=== PATIENT | male | born 1970 | race Caucasian/White ===

== ENCOUNTER → 2017-10-03 14:24 | Outpatient (CLI) | payer SELFPAY ==
[2017-10-03 16:51] LABS: Anion Gap 8 (5-15); BUN 18 mg/dL (7-18); BUN/Creat Ratio 17.5 RATIO (10-20); Calcium,Total 9.1 mg/dL (8.5-10.1); Chloride 109 mmol/L (98-107); Cholesterol 188 mg/dL (200); Creatinine, Serum 1.03 mg/dL (0.70-1.30); EST Glomerular Filtration Rate 82 mL/min (>60); Est Glom Filt Rate - Afr Amer 99 mL/min (>60); Glucose 89 mg/dL (70-110); High Density Lipoprotein 47 mg/dL; Potassium 4.6 mmol/L (3.5-5.1); Sodium Level 140 mmol/L (136-145); Thyroid Stim Hormone (TSH) 1.42 uIU/mL (0.358-3.74); Triglycerides 139 mg/dL; Very Low Density Lipoprotein 28 mg/dL (5-40)
== END ==
PROVIDERS: Family Provider Family Medicine; PCP Family Medicine; Visit Provider Family Medicine
DX: Z00.00 Encounter for general adult medical examination without abnormal findings (principal)
CPT/HCPCS: 36415; 80048; 80061; 84403; 84443

== ENCOUNTER 2017-10-20 10:14 | Outpatient (RCR) | payer BC, SELFPAY | END 2017-11-02 23:59 | LOC: NS 10:14 | PROVIDERS: Family Provider Family Medicine; PCP Family Medicine; Visit Provider Family Medicine | DX: E66.9 Obesity, unspecified (principal); Z68.41 Body mass index [BMI] 40.0-44.9, adult; Z71.3 Dietary counseling and surveillance | CPT/HCPCS: 97802 ==

== ENCOUNTER 2017-11-25 10:00 | Outpatient (RCR) | payer BC, SELFPAY | END 2017-11-25 10:01 | LOC: NS 10:00 | PROVIDERS: Family Provider Family Medicine; PCP Family Medicine; Visit Provider Family Medicine | DX: E66.9 Obesity, unspecified (principal); Z68.41 Body mass index [BMI] 40.0-44.9, adult; Z71.3 Dietary counseling and surveillance | CPT/HCPCS: 97803 ==

== ENCOUNTER → 2018-04-03 08:50 | Outpatient (CLI) | payer BC, SELFPAY ==
[2018-04-03 10:36] LABS: Anion Gap 9 (5-15); BUN 19 mg/dL (7-18); BUN/Creat Ratio 17.6 RATIO (10-20); Calcium,Total 8.7 mg/dL (8.5-10.1); Chloride 109 mmol/L (98-107); Cholesterol 200 mg/dL (200); Creatinine, Serum 1.08 mg/dL (0.70-1.30); EST Glomerular Filtration Rate 77 mL/min (>60); Est Glom Filt Rate - Afr Amer 93 mL/min (>60); Glucose 102 mg/dL (74-106); High Density Lipoprotein 44 mg/dL; Potassium 4.3 mmol/L (3.5-5.1); Sodium Level 143 mmol/L (136-145); Thyroid Stim Hormone (TSH) 3.72 uIU/mL (0.358-3.74); Triglycerides 109 mg/dL; Very Low Density Lipoprotein 22 mg/dL (5-40)
== END ==
PROVIDERS: Family Provider Family Medicine; PCP Family Medicine; Visit Provider Family Medicine
DX: I10 Essential (primary) hypertension (principal); E66.9 Obesity, unspecified
CPT/HCPCS: 36415; 80048; 80061; 84443

== ENCOUNTER → 2018-05-18 18:05 | Outpatient (CLI) | payer OTHER, BC, SELFPAY ==
--- NOTE | 2018-05-18 18:10 | RAD_ITS ---
STUDY: X-RAY - LUMBAR SPINE REASON FOR EXAM: Male, 48 years old. Low back pain after injury. TECHNIQUE: 5 view(s) of the lumbar spine were obtained. COMPARISON: Radiographs of the lumbar spine dated September 18, 2016. FINDINGS: There is an exaggerated lumbar lordosis. There is no substantial scoliosis. There is a normal alignment of the vertebrae. There is spondylosis at T12-L1. The remaining lumbar vertebral bodies have normal height and alignment. Normal disc space heights. There is no demonstrated fracture. The soft tissue structures are unremarkable. RAD/L/S Spine Min 4 Views IMPRESSION: No radiographic evidence of acute compression or displaced fracture of the lumbar spine. Electronically Signed: Buffy Chapin MD at 10:29 EDT , Service support ,
== END ==
PROVIDERS: Family Provider Family Medicine; PCP Family Medicine; Visit Provider Physician Assistant
DX: M54.5 Low back pain (principal)
CPT/HCPCS: 72110

== ENCOUNTER → 2018-07-20 10:38 | Outpatient (CLI) | payer BC, SELFPAY ==
[2018-05-26 10:08] VITALS: BMI 43.4
--- NOTE | 2018-07-20 10:43 | RAD_ITS ---
STUDY: X-RAY - RIGHT ELBOW REASON FOR EXAM: Male, 48 years old. Pain in the right elbow while lifting weights TECHNIQUE: 4 view(s) of the elbow. COMPARISON: None. FINDINGS: Normal visualized humerus, radius and ulna. There is degenerative arthrosis of the radiocapitellar and ulnotrochlear articulations. Multiple intra-articular loose bodies are seen at the elbow joint the largest measures approximately 7 mm. RAD/Elbow min 3 Views IMPRESSION: Arthrosis of the elbow, as described above. Multiple intra-articular loose bodies. Electronically Signed: Vandana Monge MD at 10:12 EST Tel , Service support ,
== END ==
PROVIDERS: Family Provider Family Medicine; PCP Family Medicine; Referring Provider Family Medicine; Visit Provider Family Medicine
DX: M19.021 Primary osteoarthritis, right elbow (principal); M24.021 Loose body in right elbow
CPT/HCPCS: 73080

== ENCOUNTER 2018-08-28 09:30 | Outpatient (RCR) | payer BC, SELFPAY ==
--- NOTE | 2018-08-08 10:32 | HP.PTEVAL_ITS ---
Patient's Visit Information ARGELIA COPELAND is a 48 year old M referred to Physical Therapy by Eddie Rodriguez with a diagnosis of Radial neuritis. Date of Evaluation: 08/08/18 Physical Therapist: Sonu Russell, PT, - Visit Plan Frequency: 1x/Week Duration: 2 Weeks Plan: Pt will continue to exercise here in the gym independently. I will follow up with him in 3 weeks to assess his progress. 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 Pt reports he was issued meloxicam which has taken away most of his symptoms. Pt reports he still has pain in the posterior aspect of his R elbow. Pt reports he did have xrays which revealed bone chips in his elbow. Pt reports he was told that he injured his radial nerve while exercising. Pt reports sleep difficulty secondary to pain without pain meds. Pt reports he is L hand dominant. Pt reports his goal is to return to lifting without pain. 0/10 pain at rest, 9/10 pain at worst. - Pain R UE pain Pain Intensity (Out of 10): 0 Pain Intensity Range: 9 - Objective Neuro: B UE sensation is WNL to light touch. B bicepital reflex= 2/3. MMT: B UE's are grossly 5/5 although R elbow extension is very painful with testing. ROM: B UE's are WFL throughout although R elbow extension is painful. Special testing: No positive tests this date. - Goals Goal 1:: I with HEP Goal Time Frame: 2-4 Weeks - Rehabilitation Potential Physical Therapy Diagnosis: Pt has R UE pain and difficulty with exercises seco ndary to R radial neuritis Rehabilitation Potential: Good - Anticipated Interventions Patient/Client Instruction: Educate patient on: Condition, Plan of Care For the Purpose of:: To improve self management Therapeutic Exercise to Include: Strength training, Flexibilty training, Active ROM For the Purpose of:: To decrease pain Ultrasound (thermal/non thermal): Yes For the Purpose of:: To decrease pain Thank you for the opportunity to evaluate your patient. For Medicare and Medicare HMO plans, please review the plan of care and approve it. It will need to be FAXED BACK to us at [phone] for Medicare purposes. For Medicare only, by signing this I certify the plan of care. Please let me know if there are questions or concerns regarding this plan of ca re. Physician Signature: Date:
--- NOTE | 2018-11-20 14:53 | HP.PT.NRP ---
HP - Discharge Summary (1) - Patient Information ARGELIA COPELAND was seen in my office for initial evaluation on 08/08/18. The following Plan of Care was established for this patient: Initial Frequency: 1x/Week Initial Duration: 2 Weeks - Anticipated Interventions Patient/Client Instruction: Educate patient on: Condition, Plan of Care For the Purpose of:: To improve self management Therapeutic Exercise to Include: Strength training, Flexibilty training, Active ROM For the Purpose of:: To decrease pain Ultrasound (thermal/non thermal): Yes For the Purpose of:: To decrease pain This patient was last seen in our office . Pertinent comments regarding their Physical therapy will appear below: Pt was treated for elbow pain for 2 PT visits through the date of 08/28/18. Pt has not returned through this date and is therefore discontinued at this time. At this point I will be discontinuing this patient from physical therapy. I would be happy to see this patient again in the future if found appropriate by the physician. Thank you! Sonu Russell, PT, ATC
== END 2018-08-28 19:00 | disposition home or self-care (01) ==
LOC: PT 09:30
PROVIDERS: Family Provider Family Medicine; PCP Family Medicine; Referring Provider Family Medicine; Visit Provider Family Medicine
DX: M25.521 Pain in right elbow (principal); G58.8 Other specified mononeuropathies
CPT/HCPCS: 97140; 97161

== ENCOUNTER → 2018-09-15 12:28 | Outpatient (CLI) | payer BC, SELFPAY ==
--- NOTE | 2018-09-15 13:00 | MRI_ITS ---
STUDY: MRI RIGHT ELBOW REASON FOR EXAM: Male, 48 years old. Pain. Patient unable to straighten arm TECHNIQUE: Standardized fat and water weighted pulse sequences were obtained in all 3 orthogonal planes. COMPARISON: X-ray July 20, 2018. FINDINGS: There is a small volume joint effusion of the radio-capitellum articulation. There is mild arthrosis of the radio-capitellum articulation. Normal radial collateral ligamentous complex. There is a tendinosis of the common extensor tendon origin with a partial deep surface tear. Series 6 image 19/32. There is a small volume joint effusion of the ulnotrochlear articulation. There is mild arthrosis of the ulnotrochlear articulation. Normal ulnar collateral ligamentous complex. Normal common flexor tendon. There are numerous small diminished signal loose bodies in the anterior and posterior joint, Series 6 images 16/32 and 24/32. The cubital tunnel is normal, with a normal ulnar nerve. Normal biceps tendon and distal insertion. Normal lacertus fibrosis. Normal brachialis musculotendinous insertion. Normal triceps tendon and teno-osseous insertion. Normal olecranon process. The visualized distal humerus, proximal radius, and ulna are normal. The visualized muscles of the distal arm and proximal forearm are normal. The soft tissue structures are unremarkable. MRI/Upper Ext Joint Only(Routine) IMPRESSION: Degenerative change. Joint effusion with loose bodies. Tendinosis with partial tear of the common extensor tendon. Electronically Signed: Ivan Verde MD at 10:34 EST , Service support ,
== END ==
LOC: MRI 12:29
PROVIDERS: Family Provider Family Medicine; PCP Family Medicine; Referring Provider Family Medicine; Visit Provider Family Medicine
DX: M19.021 Primary osteoarthritis, right elbow (principal); M24.021 Loose body in right elbow; M67.823 Other specified disorders of tendon, right elbow; S56.511A Strain of other extensor muscle, fascia and tendon at forearm level, right arm, initial encounter; X58.XXXA Exposure to other specified factors, initial encounter
CPT/HCPCS: 73221

== ENCOUNTER → 2018-10-23 14:52 | Outpatient (CLI) | payer BC, SELFPAY ==
--- NOTE | 2018-10-23 14:57 | VDLE_ITS ---
Reason For Study: RLE Pain RIGHT GSV is normal. CFV is compressible, spontaneous, phasic, competent and demonstrates normal augmentation. FV is compressible, spontaneous, phasic, competent and demonstrates normal augmentation. POP V is compressible, spontaneous, phasic, competent and demonstrates normal augmentation. T/P Trunk is compressible. PTV is compressible. RT PerV is compressible. Procedure Exam performed in department. A preliminary report was called and/or faxed to Johan Slater. Interpretation Summary Deep veins of the right lower extremity are patent and compressible segmentally. There is no evidence of right lower extremity deep vein thrombosis. Valvular competence appears intact within the proximal deep venous system on the right . The right greater saphenous vein appears patent and compressible segmentally. Ordering Physician: BECKY Kasper Referring Physician: BECKY Kasper Performed By: Natalie Yoder, DONITA, RVT
== END ==
LOC: CVS 14:54
PROVIDERS: Family Provider Family Medicine; PCP Family Medicine; Referring Provider Nurse Practitioner Family; Visit Provider Nurse Practitioner Family
DX: M79.604 Pain in right leg (principal)
CPT/HCPCS: 93971

== ENCOUNTER → 2018-10-27 11:08 | Outpatient (CLI) | payer BC, SELFPAY ==
[2018-05-26 10:08] VITALS: BMI 43.4
--- NOTE | 2018-10-27 11:11 | RAD_ITS ---
STUDY: X-RAY - LUMBAR SPINE REASON FOR EXAM: Male, 48 years old. Right leg pain and burning. TECHNIQUE: 5 view(s) of the lumbar spine were obtained. COMPARISON: None FINDINGS: Normal lumbar lordosis. There is no substantial scoliosis. There is a normal alignment of the vertebrae. Normal vertebral bodies and endplates. Narrowing of L4-L5 disc space. There is no demonstrated fracture. There is no demonstrated spondylolysis of the pars interarticulares. The soft tissue structures are unremarkable. RAD/L/S Spine Min 4 Views IMPRESSION: Narrowing of L4-5 disc space. Electronically Signed: Santos Rubin MD at 11:00 EST Tel , Service support ,
== END ==
LOC: MTRAD 11:09
PROVIDERS: Family Provider Family Medicine; PCP Family Medicine; Referring Provider Family Medicine; Visit Provider Family Medicine
DX: M54.10 Radiculopathy, site unspecified (principal)
CPT/HCPCS: 72110

== ENCOUNTER 2018-11-09 12:53 | Emergency (ER) | payer BC, SELFPAY ==
[2018-11-09 12:53] VITALS: BP 203/112; PULSE 73; RESP 18; TEMP 36.6; O2SAT 97; BMI 45.3
[2018-11-09 13:27] VITALS: BP 148/92; PULSE 71; RESP 12; O2SAT 98
--- NOTE | 2018-11-09 13:27 | RAD_ITS ---
STUDY: X-RAY CHEST REASON FOR EXAM: Male, 48 years old. Chest pain. TECHNIQUE: Single AP portable view of the chest. COMPARISON: Comparison is made with prior study dated February 19, 2014. FINDINGS: EKG electrodes are seen. The lungs are clear and expanded. There is no demonstrated pleural abnormality. Normal size heart. Normal mediastinum and cole. Normal visualized pulmonary arteries. Normal visualized aortic arch and descending thoracic aorta. There are diffuse degenerative changes of the visualized thoracic spine. Normal visualized ribs, clavicles, and shoulders. There is no demonstrated abnormality of the visualized soft tissue structures of the upper abdomen. RAD/Chest 1 View (Portable) IMPRESSION: No acute abnormality is seen. Electronically Signed: Jose M Gloria, at 14:27 EST , Service support ,
--- NOTE | 2018-11-09 13:27 | EKG12_ITS ---
Test Reason : HTN Blood Pressure : / mmHG Vent. Rate : 064 BPM Atrial Rate : 064 BPM P-R Int : 176 ms QRS Dur : 106 ms QT Int : 400 ms P-R-T Axes : -27 060 030 degrees QTc Int : 412 ms Normal sinus rhythm Normal ECG Confirmed by RUTH DOTSON MD ([id number]), video editor JESENIA SORIANO ([id number]) on 11/14/2018 9:07:52 AM Referred By: ALVERTO/BHAVNA Confirmed By:RUTH DOTSON MD
[2018-11-09 14:02] LABS: Absolute Lymphocyte Count 1.73 X10^3/ul (0.83-4.51); Absolute Neutrophil Count 3.8 X10^3/uL (2.0-7.7); Basophil# 0.07 X10^3/uL; Basophil% 1.1 % (0-1); Eosinophil# 0.11 X10^3/uL; Eosinophils% 1.8 % (0-5); Hematocrit 45.2 % (40-54); Hemoglobin 15.2 g/dl (13.0-16.5); Lymphocyte # 1.73 X10^3/ul (4.0); Lymphocyte % 28.1 % (19-41); Mean Corp Hgb Conc 33.6 g/gl (32-36); Mean Corpuscular Hgb 29.7 pg (27.0-32.0); Mean Corpuscular Volume 88.5 fL (80-94); Mean Platelet Vol. 10.2 fl (6.2-12.0); Monocyte% 8.1 % (0-10); Neutrophil # 3.75 X10^3/uL (2.7-7.7); Neutrophil % 60.9 % (47-70); POSITIVE COUNT NO; POSITIVE DIFFERENTIAL NO; POSITIVE MORPHOLOGY NO; Platelet Count 245 K/mm3 (150-450); RBC Distribution Width CV 12.9 % (11.6-14.6); RBC Distribution Width SD 41.1 fl (35.1-43.9); Red Blood Count 5.11 M/mm3 (4.6-6.2); White Blood Count 6.2 K/mm3 (4.4-11.0)
[2018-11-09 14:19] LABS: Anion Gap 9 (5-15); BUN 18 mg/dL (7-18); Calcium,Total 8.5 mg/dL (8.5-10.1); Chloride 109 mmol/L (98-107); EST Glomerular Filtration Rate 84 mL/min (>60); Est Glom Filt Rate - Afr Amer 102 mL/min (>60); Glucose 98 mg/dL (74-106); Potassium 4.3 mmol/L (3.5-5.1); Sodium Level 141 mmol/L (136-145)
--- NOTE | 2018-11-09 15:03 | ED.DCSUM_ITS ---
- ER Visit Summary Date of Service: 11/09/18 Chief Complaint: Elevated blood pressure History of Present Illness: The patient is a [address] Eric Rizo. He reports he typically his blood pressure is 130-140/85. Today it has been 170/101 when he went to see an orthopedic surgeon this morning. He states that he has a pressure in my head that is 5 out of 10 at worst and is now 2 out of 10 severity. He does have a history of similar headaches. He denies recent trauma to his head. Patient denies any chest pain or shortness of breath. Has had no chest pain or change in dyspnea on exertion in the past month. He does report that his shoulders are aching. Physical Examination: Vitals: Stable. Afebrile. General: Well-nourished and well-developed. Head: Normocephalic atraumatic. Neck: Supple, no lymphadenopathy. No JVD. Nontender. Cardiovascular: Regular rate and rhythm. No murmurs. Respiratory: No respiratory distress. Clear to auscultation bilaterally. Abdominal: Soft, nontender, nondistended, normal bowel sounds. No guarding, rebound, or peritoneal signs. Back: Nontender. Extremities: Nontender, no edema. Skin: Normal color, no rash. Neurologic: Alert and oriented ?3. Cranial nerves II through XII are intact. Normal strength and sensation. Psych: Normal affect. Test Results: EKG is sinus at 64 with no acute changes. Unchanged from 2014. Troponin is negative. Chem-7 shows a chloride of 109. CBC is normal. Chest x- ray is normal. Patient refuses CT of the head. Emergency Department Course and Treatment: Patient's initial blood pressure was 203/112. It went down to 148/92 without any treatment. Treatment Plan: Patient will be discharged instructions follow-up Dr. Rizo within a week for repeat blood pressure check. Return to the emergency depart ment for any worsening symptoms. Disposition: To home in improved and stable condition. Impression: 1. Hypertension. This note was generated with AddSearchation software. It may contain incorrect words, spelling, and punctuation that were not noted in review of the chart prior to signing ED Disposition - Plan for ED Patient: Disposition: Home or Assisted Living Instructions: ED HTN Established Referrals: Eric Odom MD [Primary Care Provider] - 1 Week
[2018-11-09 15:16] VITALS: BP 142/95; PULSE 71; RESP 18; O2SAT 98
== END 2018-11-09 15:20 | disposition home or self-care (01) ==
LOC: ED 14:18
PROVIDERS: Emergency Provider Emergency Medicine; Family Provider Family Medicine; PCP Family Medicine
DX: I10 Essential (primary) hypertension (principal); I25.10 Atherosclerotic heart disease of native coronary artery without angina pectoris
CPT/HCPCS: 71045; 80048; 84484; 85025; 93005; 99284; A4216

== ENCOUNTER → 2018-11-20 11:00 | Outpatient (CLI) | payer BC, SELFPAY ==
[2018-11-14 10:38] VITALS: BMI 42.9
[2018-11-20 12:11] LABS: AST(SGOT) 263 U/L (15-37); Alanine Aminotransfer ALT/SGPT 104 U/L (16-61); Albumin, Serum 3.5 g/dL (3.2-5.0); Alkaline Phosphatase 80 U/L (45-117); Bilirubin, Direct 0.05 mg/dL (0.00-0.30); Cholesterol 191 mg/dL (200); Globulin 3.4 g/dL (2.2-4.2); High Density Lipoprotein 39 mg/dL; Protein, Total 6.9 g/dL (6.4-8.2); Triglycerides 168 mg/dL; Very Low Density Lipoprotein 34 mg/dL (5-40)
== END ==
PROVIDERS: Family Provider Family Medicine; PCP Family Medicine; Referring Provider Internal Medicine Cardiovascular Disease; Visit Provider Internal Medicine Cardiovascular Disease
DX: E78.5 Hyperlipidemia, unspecified (principal); I25.10 Atherosclerotic heart disease of native coronary artery without angina pectoris
CPT/HCPCS: 36415; 80061; 80076

== ENCOUNTER → 2018-12-08 14:44 | Outpatient (CLI) | payer BC, SELFPAY ==
[2018-11-14 10:38] VITALS: BMI 42.9
[2018-11-29 10:34] VITALS: BMI 42.9
--- NOTE | 2018-12-08 14:47 | ECHOCS_ITS ---
Reason For Study: CAD Procedure This was a 2D Doppler, Color Flow transthoracic echocardiogram. Contrast injection was performed. The exam was of poor technical quality due to body habitus. Exam performed in department. Left Ventricle Normal size and thickness. The estimated ejection fraction is 65 %. Stage 1 diastolic dysfunction. No regional wall motion abnormalities noted. Right Ventricle Normal size and thickness. Normal systolic function. Atria The left atrium is mildly enlarged. Normal right atrium. Normal atrial septum. Mitral Valve The mitral valve is structurally normal. No prolapse or stenosis seen. Tricuspid Valve Normal tricuspid valve. Unable to estimate RV systolic pressure due to inadequate jet, pulmonary artery pressure probably normal. Aortic Valve Normal aortic valve. Trisinus/trileaflet aortic valve. Pulmonic Valve Normal pulmonic valve. Great Vessels Normal aortic root. Normal arch. Normal inferior vena cava. Inferior vena cava collapse with sniff. Pericardium/Pleural No pericardial effusion. Medication 22 gauge I.V. with prn adaptor inserted into right arm. Diluted definity 3ml given slow IV push to enhance endocardial definition. MMode/2D Measurements & Calculations LVIDd: 4.7 cm IVSd: 1.0 cm Ao root diam: 4.0 cm LVIDs: 3.4 cm LVPWd: 1.2 cm RVDd: 2.9 cm FS: 28.7 % LAV(MOD-bp): 68.4 ml EDV(MOD-sp4): 160.5 ml SV(MOD-sp4): 99.0 ml LAV(MOD-bp) Indexed: 23.8 ml/m2 ESV(MOD-sp4): 61.5 ml LAV(MOD-sp2): 68.1 ml EF(MOD-sp4): 61.7 % LAV(MOD-sp4): 69.9 ml LA dimension(2D): 4.2 cm LA A4 area: 23.7 cm2 RA A4 area: 14.7 cm2 Time Measurements MV dec time: 0.23 sec Doppler Measurements & Calculations MV E max brock: 71.2 cm/sec Lat Peak E' Brock: 11.7 cm/sec Med Peak E' Brock: 8.3 cm/sec MV A max brock: 84.4 cm/sec E/E' lat: 6.1 E/E' med: 8.6 MV E/A: 0.84 Ao V2 max: 152.2 cm/sec LV V1 max: 108.4 cm/sec PA V2 max: 100.9 cm/sec Ao max P.3 mmHg LV V1 max P.7 mmHg Interpretation Summary The estimated ejection fraction is 65 %. Stage 1 diastolic dysfunction. The left atrium is mildly enlarged. Unable to estimate RV systolic pressure due to inadequate jet, pulmonary artery pressure probably normal. Compared to echo report dated 05/13/2011, no appreciable changes noted. Ordering Physician: Lester Jean-Baptiste Referring Physician: NELLIE OLEA Performed By: Ernestina Haney, ROSA MARIACS, RVT
== END ==
PROVIDERS: Family Provider Family Medicine; PCP Family Medicine; Referring Provider Internal Medicine Cardiovascular Disease; Visit Provider Internal Medicine Cardiovascular Disease
DX: I25.10 Atherosclerotic heart disease of native coronary artery without angina pectoris (principal); I25.2 Old myocardial infarction; Z98.61 Coronary angioplasty status
CPT/HCPCS: 93306; Q9957; A4216; C8929

== ENCOUNTER → 2018-12-13 13:21 | Outpatient (CLI) | payer BC, SELFPAY ==
[2018-11-14 10:38] VITALS: BMI 42.9
[2018-11-29 10:34] VITALS: BMI 42.9
--- NOTE | 2018-12-13 13:23 | STEWCON_ITS ---
Reason For Study: CAD/ASHD Stress Results Protocol: Rajeev Protocol WITH DEFINITY Maximum Predicted HR: 171 bpm Target HR: 145 bpm % Maximum Predicted HR: 83 % DurationHeart Rate Stage (mm:ss) (bpm) BP Comment BASELINE 88 138/1085CC DEFINTIY STAGE 1 3:00 111 146/98 STAGE 2 3:00 123 172/90 STAGE 3 2:00 142 / 1 CC DEFINITY RECOVERY 112 160/80 Stress Duration: 8:00 mm:ss Maximum Stress HR: 142 bpm Baseline Echocardiogram Findings The estimated ejection fraction is 65 %. Stress Echo Wall motion Data Resting WM Intermediate WM Stress WM Resting Wall Motion Wall Motion Stress No regional wall motion No regional wall motion abnormalities noted. abnormalities noted. EKG Data The baseline ECG displays normal sinus rhythm. The patient exercised according to the regular Rajeev protocol for a total duration of 8:00. The maximum heart rate attained was 144 beats per minute. This was 84% of maximum predicted heart rate. The patient exercised into stage 3 of the Rajeev protocol. During stress, there were no ST or T wave changes noted to suggest ischemia. No clinical angina was noted. Interpretation Summary The estimated ejection fraction is 65 %. Normal, adequate, treadmill echocardiogram. Negative for ischemia by EKG and echocardiographic criteria. No anginal symptoms noted. No arrhythmias noted. Average exercise capacity for age. Hypertensive blood pressure response to exercise. Excellent chronotropic response to exercise. Final LVEF is 75%. Decreased sensitivity due to poor echo windows requiring Definity enhancing agent. Test terminated due to the attainment of target heart rate. The study was technically difficult. Contrast injection was performed. Ordering Physician: Lester Jean-Baptiste Referring Physician: Lseter Jean-Baptiste Performed By: Tamiko Beth RDCS
== END ==
LOC: CVS 13:22
PROVIDERS: Family Provider Family Medicine; PCP Family Medicine; Referring Provider Internal Medicine Cardiovascular Disease; Visit Provider Internal Medicine Cardiovascular Disease
DX: I25.10 Atherosclerotic heart disease of native coronary artery without angina pectoris (principal); I25.2 Old myocardial infarction; Z95.5 Presence of coronary angioplasty implant and graft
CPT/HCPCS: 93017; 93350; Q9957; A4216; C8928

== ENCOUNTER 2019-01-03 15:30 | Outpatient (RCR) | payer BC, SELFPAY ==
[2018-11-14 10:38] VITALS: BMI 42.9
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
--- NOTE | 2019-01-03 15:45 | HP.PTDCSUM_ITS ---
HP - PT D/C Summary It has been my pleasure to treat ARGELIA COPELAND under orders from Eric Odom MD, for the diagnosis of Back Pain for a total of 12 visit(s). Discharge Date: Please see the following information for a summary of their discharge status. - Subjective Subjective: Patient reports that he is painfree in his back and leg. The only time he has pain its from long trips in his car. He was able to ride his motocylce without pain. - Pain Lumbar Spine Pain Intensity (Out of 10): 1 RLE Pain Intensity (Out of 10): 0 - Overall Improvement % Improvement: 100 - Objective Objective/Function: Posture: good throughout session in hard back chair Gait: no deviation noted- good arm swing and trunk rotation. Stairs: asc/desc 8 r ecip. SLS: 30 sec without LOB no pain. HR/TR: able with no UE A and reports no weakness. ROM: Flexion: mid alcantar (reports HS tightness), Extn: mild restriction. SB/Rot: WFL- ROM does not change s/s. Hip/Ankle/Knee: WFL. Strength: Core:fair, Hip: 4+/5 throughout, Knee/Ankle: 5/5. Flex: HS:moderate. Palpation: not tender Senstion:Wfl. Reflex: WFL - Goals Goal 1:: Patient will be I with HEP and progression Goal Progress: Goal Met Goal 2:: Patient will maintain proper posture t/o tx session to demo increased core s/s Goal Progress: Goal Met Goal 3:: Patient will report 0/10 pain and no s/s in right LE for 1 week Goal Progress: Goal Met - Plan Plan: Discharge to I HEP - D/C Information If there are questions or concerns regarding this patient's physical therapy, please feel free to call me at [phone]. Thank you for the referral of this patient. Sincerely, Romy Carrillo DPT
== END 2019-01-03 19:00 | disposition home or self-care (01) ==
LOC: PT 15:30
PROVIDERS: Family Provider Family Medicine; PCP Family Medicine; Referring Provider Family Medicine; Visit Provider Family Medicine
DX: M51.36 Other intervertebral disc degeneration, lumbar region (principal)
CPT/HCPCS: 97110; 97113; 97162; 97164; 97530

== ENCOUNTER → 2019-01-19 15:33 | Outpatient (CLI) | payer BC, SELFPAY ==
[2018-11-29 10:34] VITALS: BMI 42.9
[2019-01-19 17:52] LABS: Anion Gap 8 (5-15); BUN 22 mg/dL (7-18); Calcium,Total 8.8 mg/dL (8.5-10.1); Chloride 107 mmol/L (98-107); Creatinine, Serum 1.05 mg/dL (0.70-1.30); EST Glomerular Filtration Rate 80 mL/min (>60); Est Glom Filt Rate - Afr Amer 96 mL/min (>60); Glucose 73 mg/dL (74-106); Potassium 3.6 mmol/L (3.5-5.1); Sodium Level 139 mmol/L (136-145)
== END ==
PROVIDERS: Family Provider Family Medicine; PCP Family Medicine; Referring Provider Family Medicine; Visit Provider Family Medicine
DX: I10 Essential (primary) hypertension (principal)
CPT/HCPCS: 36415; 80048

== ENCOUNTER 2019-04-12 10:00 | Outpatient (RCR) | payer BC, SELFPAY ==
[2018-11-29 10:34] VITALS: BMI 42.9
--- NOTE | 2019-02-28 15:24 | HP.PTEVAL_ITS ---
Patient's Visit Information ARGELIA COPELAND is a 48 year old M referred to Physical Therapy by DICK EASON with a diagnosis of R elbow arthroscopy and carpal tunnel release. Date of Evaluation: 02/28/19 Physical Therapist: Sonu Russell, PT, ATC - Visit Plan Frequency: 2-3x /Week Duration: 4-6 Weeks Plan: Aggressive R elbow PROM/AROM/AAROM only until full ROM is achieved. After that point, strengtrhening can commence. - Subjective Findings: DOS: 02/20/19. Pt reports he had a lot of loose bodies in his R elbow that needed to be removed. Pt reports he had a lot of PT prior to surgery but just couldn't make the pain go away. Pt reports he also had a carpal tunnel repair at the time. Pt is L hand dom. Pt reports occasional sleep diff secondary to lipscomb. 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 Pt reports diff with showering secondary to lack of ROM in R elbow. 6/10 at rest, 10/10 at worst - Pain R elbow and wrist Pain Intensity (Out of 10): 6 Pain Intensity Range: 10 - Objective Neuro: B UE sensation is WNL to light touch. Girth at elbow line: L elbow 38 cm, R elbow 40 cm. ROM: R elbow ext= -20, flex= 95; L elbow ext= -10, flex= 125;. MMT: R elbow 3-/5 throughout. L elbow 5/5 throughout. Environmental Protection Forester strength: L hand = 125 #/F, R hand= 35 #/F - Goals Goal 1:: Decrease R elbow and wrist pain x 50% to aid with sleep Goal Time Frame: 4-6 Weeks Goal 2:: Increase R elbow and auto garage mechanic strength x 1 grade to aid with IADL's Goal Time Frame: 4-6 Weeks Goal 3:: Increase R elbow ROM x 20 degrees to aid with IADL's Goal Time Frame: 4-6 Weeks Goal 4:: I with HEP Goal Time Frame: 4-6 Weeks - Rehabilitation Potential Physical Therapy Diagnosis: R wrist pain, R elbow pain, and limited R UE ROM secondary to R elbow arthroscopy and carpal tunnel release Rehabilitation Potential: Good - Anticipated Interventions Patient/Client Instruction: Educate patient on: Condition, Plan of Care For the Purpose of:: To improve self management Therapeutic Exercise to Include: Strength training, Endurance training, Flexibilty training, Passive ROM, Active ROM, Scapular Strength/Stabilization For the Purpose of:: To decrease pain, To increase ROM, To improve muscle performance and motor function Cryotherapy (ice pack, ice massage): Yes For the Purpose of:: To decrease pain Thank you for the opportunity to evaluate your patient. For Medicare and Medicare HMO plans, please review the plan of care and approve it. It will need to be FAXED BACK to us at [phone] for Medicare purposes. For Medicare only, by signing this I certify the plan of care. Please let me know if there are questions or concerns regarding this plan of care. Physician Signature: Date:
--- NOTE | 2019-04-12 10:45 | HP.PTDCSUM_ITS ---
HP - PT D/C Summary It has been my pleasure to treat ARGELIA COPELAND under orders from DICK EASON, for the diagnosis of R elbow arthroscopy and carpal tunnel release for a total of 13 visit(s). Discharge Date: Please see the following information for a summary of their discharge status. - Subjective Subjective: Pt reports he is ready for discharge this week. - Pain R elbow and wrist Pain Intensity (Out of 10): 0 - Overall Improvement % Improvement: 95 - Objective Objective/Function: R elbow pain 0/10. R senior market research analyst strength 100#/f. R elbow strength is 5/5 throughout. R elbow ROM: 0-10-115. I with HEP. Rx goals achieved - Goals Goal 1:: Decrease R elbow and wrist pain x 50% to aid with sleep Goal Progress: Goal Met Goal 2:: Increase R elbow and senior market research analyst strength x 1 grade to aid with IADL's Goal 3:: Increase R elbow ROM x 20 degrees to aid with IADL's Goal 4:: I with HEP - Plan Plan: Discharge - D/C Information If there are questions or concerns regarding this patient's physical therapy, please feel free to call me at [phone]. Thank you for the referral of this patient. Sincerely, Sonu Russell, PT, ATC
== END 2019-04-12 13:18 | disposition home or self-care (01) ==
LOC: PT 10:00
PROVIDERS: Family Provider Family Medicine; PCP Family Medicine
DX: M24.021 Loose body in right elbow (principal); G56.01 Carpal tunnel syndrome, right upper limb; Z98.890 Other specified postprocedural states
CPT/HCPCS: 97110; 97140; 97161; 97530

== ENCOUNTER → 2019-04-16 14:59 | Outpatient (CLI) | payer BC, SELFPAY ==
[2018-11-29 10:34] VITALS: BMI 42.9
[2019-04-16 18:19] LABS: BUN 16 mg/dL (7-18); BUN/Creat Ratio 13.6 RATIO (10-20); Calcium,Total 8.9 mg/dL (8.5-10.1); Chloride 105 mmol/L (98-107); Cholesterol 222 mg/dL (200); Creatinine, Serum 1.18 mg/dL (0.70-1.30); EST Glomerular Filtration Rate 69 mL/min (>60); Est Glom Filt Rate - Afr Amer 84 mL/min (>60); Glucose 114 mg/dL (74-106); Potassium 3.6 mmol/L (3.5-5.1); Sodium Level 140 mmol/L (136-145); Triglycerides 199 mg/dL
[2019-04-16 18:20] LABS: Anion Gap 9 (5-15); High Density Lipoprotein 42 mg/dL; Very Low Density Lipoprotein 40 mg/dL (5-40)
== END ==
PROVIDERS: Family Provider Family Medicine; PCP Family Medicine; Visit Provider Family Medicine
DX: I10 Essential (primary) hypertension (principal)
CPT/HCPCS: 36415; 80048; 80061

== ENCOUNTER → 2019-08-17 14:22 | Outpatient (CLI) | payer BC, SELFPAY ==
[2019-07-05 15:59] VITALS: BMI 43.4
[2019-08-17 16:19] LABS: ALB/GLOB Ratio 1.1 RATIO (0.9-2.4); AST(SGOT) 22 U/L (15-37); Alanine Aminotransfer ALT/SGPT 43 U/L (16-61); Albumin, Serum 4.1 g/dL (3.2-5.0); Alkaline Phosphatase 70 U/L (45-117); Anion Gap 7 (5-15); BUN 21 mg/dL (7-18); BUN/Creat Ratio 18.9 RATIO (10-20); Bilirubin, Direct 0.14 mg/dL (0.00-0.30); Calcium,Total 8.8 mg/dL (8.5-10.1); Chloride 106 mmol/L (98-107); Cholesterol 215 mg/dL (200); Creatinine, Serum 1.11 mg/dL (0.70-1.30); EST Glomerular Filtration Rate 74 mL/min (>60); Est Glom Filt Rate - Afr Amer 90 mL/min (>60); Globulin 3.8 g/dL (2.2-4.2); Glucose 80 mg/dL (74-106); High Density Lipoprotein 47 mg/dL; Potassium 3.3 mmol/L (3.5-5.1); Protein, Total 7.9 g/dL (6.4-8.2); Sodium Level 139 mmol/L (136-145); Triglycerides 91 mg/dL; Very Low Density Lipoprotein 18 mg/dL (5-40)
== END ==
PROVIDERS: Family Provider Family Medicine; PCP Family Medicine; Referring Provider Internal Medicine Cardiovascular Disease; Visit Provider Internal Medicine Cardiovascular Disease
DX: I10 Essential (primary) hypertension (principal); E78.5 Hyperlipidemia, unspecified; I25.10 Atherosclerotic heart disease of native coronary artery without angina pectoris
CPT/HCPCS: 36415; 80053; 80061; 82248

== ENCOUNTER → 2020-01-16 15:59 | Outpatient (CLI) | payer BC, SELFPAY ==
[2019-07-05 15:59] VITALS: BMI 43.4
[2020-01-16 18:20] LABS: Anion Gap 10 (5-15); BUN 22 mg/dL (7-18); Calcium,Total 8.8 mg/dL (8.5-10.1); Chloride 104 mmol/L (98-107); Cholesterol 150 mg/dL (200); Creatinine, Serum 1.16 mg/dL (0.70-1.30); EST Glomerular Filtration Rate 71 mL/min (>60); Est Glom Filt Rate - Afr Amer 85 mL/min (>60); Glucose 147 mg/dL (74-106); High Density Lipoprotein 45 mg/dL; Potassium 3.1 mmol/L (3.5-5.1); Sodium Level 140 mmol/L (136-145); Triglycerides 206 mg/dL; Very Low Density Lipoprotein 41 mg/dL (5-40)
== END ==
PROVIDERS: PCP Family Medicine; Visit Provider Family Medicine
DX: E78.00 Pure hypercholesterolemia, unspecified (principal); I10 Essential (primary) hypertension
CPT/HCPCS: 36415; 80048; 80061

== ENCOUNTER → 2020-08-20 16:42 | Outpatient (CLI) | payer BC, SELFPAY ==
[2019-07-05 15:59] VITALS: BMI 43.4
--- NOTE | 2020-08-20 16:44 | RAD_ITS ---
STUDY: X-RAY - LUMBAR SPINE REASON FOR EXAM: Male, 50 years old. Lower back pain. TECHNIQUE: 5 view(s) of the lumbar spine were obtained. COMPARISON: None FINDINGS: Normal lumbar lordosis. There is no substantial scoliosis. There is a normal alignment of the vertebrae. Normal vertebral bodies and endplates. Normal disc space heights. There is no evidence of acute fracture or loss of vertebral axial height. There is no demonstrated spondylolysis of the pars interarticulares. The soft tissue structures are unremarkable. RAD/L/S Spine Min 4 Views IMPRESSION: Normal x-ray examination of the lumbar spine. Electronically Signed: Jorge Reyes DO at 20:35 EST Tel [phone], Service support ,
== END ==
LOC: MTRAD 16:43
PROVIDERS: PCP Family Medicine; Referring Provider Family Medicine; Visit Provider Family Medicine
DX: M54.5 Low back pain (principal)
CPT/HCPCS: 72110

== ENCOUNTER → 2020-09-01 14:21 | Outpatient (CLI) | payer BC, SELFPAY ==
[2019-07-05 15:59] VITALS: BMI 43.4
[2020-09-01 18:00] LABS: Anion Gap 10 (5-15); BUN 21 mg/dL (7-18); BUN/Creat Ratio 18.3 RATIO (10-20); Calcium,Total 8.9 mg/dL (8.5-10.1); Chloride 104 mmol/L (98-107); Cholesterol 201 mg/dL (200); Creatinine, Serum 1.15 mg/dL (0.70-1.30); EST Glomerular Filtration Rate 71 mL/min (>60); Est Glom Filt Rate - Afr Amer 86 mL/min (>60); Glucose 78 mg/dL (74-106); High Density Lipoprotein 46 mg/dL; Potassium 3.7 mmol/L (3.5-5.1); Sodium Level 139 mmol/L (136-145); Triglycerides 146 mg/dL; Very Low Density Lipoprotein 29 mg/dL (5-40)
== END ==
LOC: MFPLAB 14:22
PROVIDERS: PCP Family Medicine; Visit Provider Family Medicine
DX: I10 Essential (primary) hypertension (principal)
CPT/HCPCS: 36415; 80048; 80061

== ENCOUNTER → 2020-09-22 13:40 | Outpatient (CLI) | payer BC, SELFPAY ==
[2019-07-05 15:59] VITALS: BMI 43.4
== END ==
PROVIDERS: PCP Family Medicine; Visit Provider Family Medicine
DX: Z20.822 Contact with and (suspected) exposure to COVID-19 (principal)
CPT/HCPCS: 87635; U0005; U0003

== ENCOUNTER → 2020-10-06 14:25 | Outpatient (CLI) | payer BC, SELFPAY ==
[2019-07-05 15:59] VITALS: BMI 43.4
[2020-10-06 18:15] LABS: Anion Gap 11 (5-15); BUN 19 mg/dL (7-18); BUN/Creat Ratio 17.1 RATIO (10-20); Calcium,Total 9.1 mg/dL (8.5-10.1); Chloride 104 mmol/L (98-107); Cholesterol 118 mg/dL (200); Creatinine, Serum 1.11 mg/dL (0.70-1.30); EST Glomerular Filtration Rate 74 mL/min (>60); Est Glom Filt Rate - Afr Amer 90 mL/min (>60); Glucose 81 mg/dL (74-106); High Density Lipoprotein 47 mg/dL; Potassium 3.3 mmol/L (3.5-5.1); Sodium Level 139 mmol/L (136-145); Triglycerides 102 mg/dL; Very Low Density Lipoprotein 20 mg/dL (5-40)
== END ==
LOC: MFPLAB 14:26
PROVIDERS: PCP Family Medicine; Referring Provider Family Medicine; Visit Provider Family Medicine
DX: I10 Essential (primary) hypertension (principal)
CPT/HCPCS: 36415; 80048; 80061

== ENCOUNTER 2021-01-02 11:30 | Day surgery (SDC) | payer BC, SELFPAY ==
[2021-01-02 11:45] VITALS: BP 157/89; PULSE 72; RESP 16; TEMP 36.4; O2SAT 95; BMI 44.5
[2021-01-02] MEDS: Lactated Ringers 1,000 ML 100 ML IV (12:15)
--- NOTE | 2021-01-02 13:00 | RAD_ITS ---
PROCEDURE: Bilateral L4-S1 facet joint block. DATE OF EXAMINATION: 01/02/2021. INDICATION: Male, 50 years old. Chronic low back pain. FLUOROSCOPY TIME (if supplied): (20 seconds) minutes/seconds. 7 intraoperative images were obtained. Intraoperative imaging provided for bilateral L4-S1 facet joint block. RAD/L/S Spine Min 4 Views IMPRESSION: Intraoperative imaging provided for bilateral L4-S1 facet joint block. Electronically Signed: Jose M Gloria MD at 13:41 EDT , Service support ,
[2021-01-02] MEDS: Bupivacaine 0.25% 30 ML Vial (13:08)
[2021-01-02] MEDS: Triamcinolone Acetonide 40 MG/ML Vial (13:08)
[2021-01-02 13:19] VITALS: BP 146/81; BP 157/89; PULSE 73; RESP 18; TEMP 36.4; O2SAT 98
[2021-01-02 13:25] VITALS: BP 147/79; BP 157/89; PULSE 66; RESP 18; O2SAT 96
[2021-01-02 13:30] VITALS: BP 157/89; BP 161/78; PULSE 66; RESP 18; O2SAT 95
[2021-01-02 13:35] VITALS: BP 139/83; BP 157/89; PULSE 71; RESP 16; TEMP 36.6; O2SAT 96
[2021-01-02 14:10] VITALS: BP 157/89
== END 2021-01-02 14:15 ==
LOC: SDC 11:30 → AC 11:31
PROVIDERS: PCP Family Medicine; Referring Provider Anesthesiology Pain Medicine; Visit Provider Anesthesiology Pain Medicine
PROC: 3E0T3BZ Introduction of Anesthetic Agent into Peripheral Nerves and Plexi, Percutaneous Approach (ICD-10-PCS; CPT 64493; principal; 2021-01-02 12:55)
DX: M48.061 Spinal stenosis, lumbar region without neurogenic claudication (principal); M51.16 Intervertebral disc disorders with radiculopathy, lumbar region; M47.26 Other spondylosis with radiculopathy, lumbar region; E11.9 Type 2 diabetes mellitus without complications; I51.9 Heart disease, unspecified; E78.5 Hyperlipidemia, unspecified; I25.2 Old myocardial infarction; I10 Essential (primary) hypertension; I25.10 Atherosclerotic heart disease of native coronary artery without angina pectoris; F32.9 Major depressive disorder, single episode, unspecified; G89.29 Other chronic pain; Z87.891 Personal history of nicotine dependence; Z79.899 Other long term (current) drug therapy; Z79.82 Long term (current) use of aspirin; Z95.5 Presence of coronary angioplasty implant and graft
CPT/HCPCS: 64493; 64494; 64483; 72110; J7120

== ENCOUNTER 2021-03-27 08:29 | Emergency (ER) | payer BC, SELFPAY ==
[2021-03-27 08:30] VITALS: BP 155/88; PULSE 70; RESP 20; TEMP 36.2; O2SAT 98; BMI 26.0
[2021-03-27 08:52] VITALS: BP 128/79; PULSE 72; RESP 19; O2SAT 94
--- NOTE | 2021-03-27 09:02 | EKG12_ITS ---
Test Reason : CP Blood Pressure : / mmHG Vent. Rate : 069 BPM Atrial Rate : 069 BPM P-R Int : 190 ms QRS Dur : 102 ms QT Int : 392 ms P-R-T Axes : -07 050 019 degrees QTc Int : 420 ms Normal sinus rhythm Normal ECG Confirmed by SERA WOODALL, NELLIE ([id number]), sports editor PEPPER HARGROVE ([id number]) on 03/31/2021 10:16:17 AM Referred By: BB Confirmed By:NELLIE ZAMORA MD
--- NOTE | 2021-03-27 09:03 | EDS_ITS ---
HPI History of Present Illness Chief Complaint: Shortness of Breath Detail of Chief Complaint: Sore throat Informant: patient Onset/Context/Timing Onset: Yesterday Context: Gradual Onset Timing: Continuous Quality: Sore/pain Location: Throat mostly on right Current Severity: Moderate Maximum Severity: Severe Worsened by: Swallowing Relieved by: Nothing Associated Symptoms Associated Symptoms: See below. No fevers. Narrative Narrative: Sore throat that started yesterday, this morning it is much worse, very painful to swallow, and the pain goes down into his chest with swallowing (no other times does he have chest discomfort), and he feels like his throat is swelling and this is making him feel a little short of breath. Denies any fevers or chills. He is able to pass fluids. If feels worse on the right. [facility] Medical History Atherosclerotic heart disease of [place] coronary artery without angina pectoris Back pain Chronic pain Depression Edema Family history of ischemic heart disease Former smoker History of lateral wall myocardial infarction (07/22/09) History of steroid therapy HLD (hyperlipidemia) HTN (hypertension) Hx of echocardiogram Myocardial infarct right elbow surgery Shortness of breath on exertion Tobacco use disorder Wears contact lenses Home Medications aspirin 325 mg PO DAILY@0800 11/09/18 [History Last Taken 11/09/18] gabapentin 300 mg PO QHS 11/09/18 [History Last Taken 11/08/18] omega-3 fatty acids-fish oil 300 mg-1,000 mg capsule 2 cap PO DAILY 11/29/18 [History Last Taken Unknown] amlodipine 10 mg tablet 10 mg PO DAILY tab 10/27/20 [History Last Taken 01/02/21 10:00] chlorthalidone 25 mg tablet 25 mg PO DAILY tab 10/27/20 [History Last Taken 01/02/21 10:00] hydroxyzine HCl 50 mg tablet 50 mg PO QHS tab 10/27/20 [History Last Taken Unknown] losartan 50 mg tablet 100 mg PO DAILY tab 10/27/20 [History Last Taken 01/02/21 10:00] metoprolol tartrate 25 mg tablet 25 mg PO BID tab 10/27/20 [History Last Taken 01/02/21 10:00] nortriptyline 50 mg capsule 50 mg PO QHS cap 10/27/20 [History Last Taken Unknown] potassium chloride 20 mEq tablet,extended release 40 meq PO DAILY 10/27/20 [History Last Taken Unknown] Ca carb-Ca gluc-Mg ox-Mg gluco [Calcium Magnesium] 1 tab PO DAILY 03/27/21 [History Last Taken Unknown] amoxicillin-pot clavulanate 875 mg PO Q12H #20 tablet 03/27/21 [Rx Last Taken Unknown] multivitamin 1 tab PO DAILY 03/27/21 [History Last Taken Unknown] Allergy/AdvReac Type Severity Reaction Status Date / Time bee venom protein (honey bee) Allergy Swelling Verified 03/27/21 08:47 atorvastatin AdvReac Severe Myalgias Verified 03/27/21 08:47 cephalexin [From Keflex] AdvReac GIVES ME Verified 03/27/21 08:47 THE J[employer]TERS shellfish derived AdvReac Nausea/Vom/ Verified 03/27/21 08:47 Diarrhea Family History Father , Age 57 of [place], had ID/CAD at age 39 CAD (coronary artery disease) Myocardial infarction Surgical History History of dental surgery Stented coronary artery (07/22/09) Social History household members: other details: mother housing: house current occupational status: employed current occupation: [employer] 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: Former smoker pack-years: 20 alcohol intake: never do you feel safe at home: Yes ROS ROS ED Constitutional Constitutional ED: Denies chills or fever(s) Eyes Eyes: Denies change in vision or diplopia ENT ENT ED: Reports as per HPI, neck pain and sore throat; Denies facial pain, loss taste/smell or rhinorrhea Cardiovascular Cardiovascular: Reports as per HPI and chest pain; Denies palpitations Respiratory/Chest Respiratory/Chest: Reports as per HPI and dyspnea; Denies cough Gastrointestinal Gastrointestinal: Denies abdominal pain, diarrhea, nausea or vomiting Genitourinary Genitourinary ED: Denies dysuria or hematuria Musculoskeletal Musculoskeletal: Denies back pain or neck pain Integumentary Denies abscess or rash Neurologic Neurologic: Denies headache(s), paresthesias or weakness Psychiatric Psychiatric: Denies anxiety or suicidal thoughts EXAM Physical Exam Const Vital Signs: 03/27/21 08:30 03/27/21 08:52 03/27/21 09:43 Temperature 97.2 F L Temperature Source Temporal Pulse Rate 70 72 64 Respiratory Rate 20 H 19 H 16 Blood Pressure 155/88 H 128/79 H 110/77 Blood Pressure Mean 110 95 88 Pulse Ox 98 94 99 Oxygen Delivery Method Room Air Room Air Room Air 03/27/21 11:00 Temperature Temperature Source Pulse Rate 60 Respiratory Rate 19 H Blood Pressure 142/71 H Blood Pressure Mean 94 Pulse Ox 99 Oxygen Delivery Method Room Air Positive well nourished and well developed Constitutional Narrative: Posterior oropharyngeal erythema. Very limited view of tonsils and posterior oropharynx even with tongue depressor; no gross asymmetry. Uvula midline. No trismus. No stridor. General Appearance ED: well developed and NAD HEENT Reports moist mucous membranes normocephalic and atraumatic Eyes PERRL and EOMs intact bilaterally Neck full ROM and supple Neck Narrative: Tenderness in the right submandibular neck without any palpable lymphadenopathy or masses/collections. Skin normal here. Thyroid: thyroid normal Resp normal respiratory effort and clear to auscultation bilaterally Cardio regular rate, regular rhythm and no murmurs GI non-tender and non-distended Auscultation: normoactive bowel sounds Palpation: soft Back/Spine no CVA tenderness General Back: other FROM Extremity normal to inspection General Extremety ED: Negative for edema, pulses abnormal or tenderness General Extremity: Negative for edema or pulses abnormal Neuro oriented x3, CN's II-XII intact bilaterally and no sensory deficits noted Sensorium / Orientation: awake and alert Motor Exam: strength 5/5 throughout Skin no rashes or lesions noted and no wounds MDM MDM MDM Narrative Medical decision making narrative: CT of the soft tissues of the neck was obtained with contrast, results are as below. There is asymmetry in the right side, certainly where he is having symptoms, however it is nonspecific and endoscopic correlation is recommended. His airway is widely patent. I discussed these findings with Dr. Ferreira with otolaryngology who reviewed the images remotely, and recommends antibiotics along with a dose of Decadron and close outpatient follow-up, suspecting infection given the history. I did a rapid strep it is negative. Culture sent. Patient is given Unasyn here in addition to Decadron 10 mg and prescribed Augmentin, and he is comfortable with that plan. We discussed reasons to return. Lab Data Attestation: I reviewed the patient's lab results. Labs: Laboratory Results - last 24 hr 03/27/21 03/27/21 08:40 08:40 WBC 10.3 RBC 5.13 Hgb 15.5 Hct 44.6 MCV 86.9 MCH 30.2 MCHC 34.8 RDW Std Deviation 40.3 RDW Coeff of Sandy 12.7 Plt Count 310 MPV 9.6 Immature Gran % (Auto) 0.300 Neut % (Auto) 75.4 H Lymph % (Auto) 14.3 L Young % (Auto) 7.2 Eos % (Auto) 1.8 Baso % (Auto) 1.0 Absolute Neuts (auto) 7.8 H Absolute Lymphs (auto) 1.48 Nucleated RBC % 0 Sodium 136 Potassium 3.7 Chloride 102 Carbon Dioxide 26.0 Anion Gap 8 BUN 19 H Creatinine 1.08 Estim Creat Clear Calc 98.23 Est GFR (MDRD) Af Amer 92 Est GFR (MDRD) Non-Af 76 BUN/Creatinine Ratio 17.6 Glucose 108 H Calcium 8.9 Radiography Diagnostic Testing: Radiology Impression Soft Tissue Neck CT 03/27/21 10:00 IMPRESSION: Multiple small cervical lymph nodes. Asymmetry of the right hypopharynx just cephalad to the hyoid bone. Endoscopic correlation is recommended. Calcifications within the palatine tonsils bilaterally suggestive of chronic inflammatory changes. Electronically Signed: Jose M Gloria MD at 10:41 EDT , Service support , EKG Initial EKG: Attestation: I personally reviewed and interpreted this EKG as follows: Interpretation: Sinus Rhythm and No Acute Injury Pattern Prior EKG tracings: available for review Prior: Unchanged Discharge Plan Triage Chief Complaint: Shortness of Breath ED Provider: Ivan Chávez Dx/Rx/DC Orders Clinical Impression: Pharyngitis Instructions: ED Pharyngitis, Report Pending Prescriptions: New amoxicillin-pot clavulanate [amoxicillin-pot clavulanate] 875 MG tablet 875 mg PO Q12H Qty: 20 RF: 0 No Action losartan 50 mg tablet 100 mg PO DAILY RF: 0 omega-3 fatty acids-fish oil [Fish Oil] 300-1,000 mg capsule 2 cap PO DAILY RF: 0 amlodipine 10 mg tablet 10 mg PO DAILY RF: 0 chlorthalidone 25 mg tablet 25 mg PO DAILY RF: 0 hydroxyzine HCl 50 mg tablet 50 mg PO QHS RF: 0 metoprolol tartrate 25 mg tablet 25 mg PO BID RF: 0 potassium chloride 20 mEq tablet extended release 40 meq PO DAILY RF: 0 nortriptyline 50 mg capsule 50 mg PO QHS RF: 0 aspirin 325 MG tablet 325 mg PO DAILY@0800 RF: 0 gabapentin 300 MG capsule 300 mg PO QHS RF: 0 multivitamin Tablet 1 tab PO DAILY RF: 0 Calcium Magnesium 500 mg calcium -250 mg Tablet 1 tab PO DAILY RF: 0 Primary Care Provider: Eric Odom Referrals: Nazario Reardon MD [STAFF PHYSICIAN] - (Call for appointment to be seen early next week after the weekend) Eric Odom MD [Primary Care Provider] - Disposition Disposition: Home, Self Care
[2021-03-27 09:09] LABS: Absolute Lymphocyte Count 1.48 X10^3/uL (0.83-4.51); Absolute Neutrophil Count 7.8 X10^3/uL (2.0-7.7); Eosinophil# 0.19 X10^3/uL; Eosinophils% 1.8 % (0-5); Hematocrit 44.6 % (40-54); Hemoglobin 15.5 g/dL (13.0-16.5); Lymphocyte # 1.48 X10^3/ul (0.83-4.51); Lymphocyte % 14.3 % (19-41); Mean Corp Hgb Conc 34.8 g/dL (32-36); Mean Corpuscular Hgb 30.2 pg (27.0-32.0); Mean Corpuscular Volume 86.9 fL (80-94); Mean Platelet Vol. 9.6 fl (6.2-12.0); Monocyte# 0.74 X10^3/uL; Monocyte% 7.2 % (0-10); NRBC Flagged by Analyzer 0 % (0-5); Neutrophil # 7.79 X10^3/uL (2.7-7.7); Neutrophil % 75.4 % (47-70); Platelet Count 310 K/mm3 (150-450); RBC Distribution Width CV 12.7 % (11.6-14.6); RBC Distribution Width SD 40.3 fl (35.1-43.9); Red Blood Count 5.13 M/mm3 (4.6-6.2); White Blood Count 10.3 K/mm3 (4.4-11.0)
[2021-03-27 09:17] LABS: Anion Gap 8 (5-15); BUN 19 mg/dL (7-18); BUN/Creat Ratio 17.6 RATIO (10-20); Calcium,Total 8.9 mg/dL (8.5-10.1); Chloride 102 mmol/L (98-107); Creatinine, Serum 1.08 mg/dL (0.70-1.30); EST Glomerular Filtration Rate 76 mL/min (>60); Est Glom Filt Rate - Afr Amer 92 mL/min (>60); Estimated Creatinine Clearance 98.23 ml/min; Glucose 108 mg/dL (74-106); Potassium 3.7 mmol/L (3.5-5.1); Sodium Level 136 mmol/L (136-145)
[2021-03-27 09:43] VITALS: BP 110/77; PULSE 64; RESP 16; O2SAT 99
--- NOTE | 2021-03-27 10:00 | CT_ITS ---
STUDY: CT SOFT TISSUE NECK WITH CONTRAST REASON FOR EXAM: Male, 51 years old. Odynophagia on right, throat tightening/swelling RADIATION DOSAGE (If Supplied By Facility): CTDIvol = ( 21.96 ) mGy, DLP = ( 594.63 ) mGycm TECHNIQUE: The patient was scanned in a multi-detector CT scanner. High resolution transaxial imaging was performed following intravenous administration of IV 100ML ISOVUE 370. Sagittal and coronal images were reconstructed. Individualized dose optimization techniques were used for this CT. COMPARISON: None. FINDINGS: Normal bilateral parotid glands. Normal bilateral spirits model spaces. Normal bilateral parapharyngeal spaces. Normal bilateral carotid spaces. Normal bilateral sublingual and submandibular glands and spaces. Normal visualized nasopharynx. Normal retropharyngeal space. Normal perivertebral space. There is evidence of punctate calcifications within the palatine tonsils bilaterally. This may be secondary to chronic inflammatory changes. The visualized tongue, tongue base and oropharynx are normal. There are minimally enlarged lymph nodes of the neck, with preservation of normal cristóbal architecture, consistent with a reactive lymph hyperplasia. There is no demonstrated solid or cystic mass lesion. There is no abnormal contrast enhancement. Normal epiglottis, bilateral vallecula. There is asymmetry of the right side of the upper pharynx just cephalad to the hyoid bone. Correlation with endoscopy is recommended. The pre-epiglottic and paraglottic adipose spaces are normal. Normal visualized bilateral piriform sinuses, aryepiglottic folds, vocal cords, and arytenoid-cricoid articulations. Normal subglottic trachea. Normal bilateral lobes of the thyroid gland. Normal visualized pulmonary apices. Normal visualized paranasal sinuses. Normal visualized cervical spine. CT/Soft Tissue Neck WITH Contrast IMPRESSION: Multiple small cervical lymph nodes. Asymmetry of the right hypopharynx just cephalad to the hyoid bone. Endoscopic correlation is recommended. Calcifications within the palatine tonsils bilaterally suggestive of chronic inflammatory changes. Electronically Signed: Jose M Gloria MD at 10:41 EDT , Service support ,
[2021-03-27 11:00] VITALS: BP 142/71; PULSE 60; RESP 19; O2SAT 99
[2021-03-27] MEDS: dexAMETHasone 10 MG/ML Vial IV (11:29)
[2021-03-27 11:37] VITALS: BP 132/84; PULSE 62; RESP 12; O2SAT 99
== END 2021-03-27 12:43 | disposition home or self-care (01) ==
PROVIDERS: Emergency Provider Emergency Medicine; PCP Family Medicine
DX: J02.9 Acute pharyngitis, unspecified (principal); I25.10 Atherosclerotic heart disease of native coronary artery without angina pectoris; I25.2 Old myocardial infarction; I10 Essential (primary) hypertension; Z79.82 Long term (current) use of aspirin; Z79.899 Other long term (current) drug therapy; Z87.891 Personal history of nicotine dependence
CPT/HCPCS: 70491; 80048; 85025; 87880; 93005; 96365; 96375; 99284; J7050; Q9967; A4216; J0295

== ENCOUNTER → 2021-05-18 16:44 | Outpatient (CLI) | payer BC, SELFPAY | PROVIDERS: PCP Family Medicine; Referring Provider Family Medicine; Visit Provider Family Medicine | DX: Z20.822 Contact with and (suspected) exposure to COVID-19 (principal) | CPT/HCPCS: 87635; U0005; U0003 ==

== ENCOUNTER → 2021-06-26 16:59 | Outpatient (CLI) | payer BC, SELFPAY ==
--- NOTE | 2021-06-26 17:07 | RAD_ITS ---
STUDY: X-RAY - LEFT KNEE REASON FOR EXAM: Male, 51 years old. PAIN TECHNIQUE: 3 view(s) of the knee. COMPARISON: None. FINDINGS: Normal visualized distal femur. Normal visualized proximal tibia and fibula. Normal proximal tibiofibular articulation. There is mild degenerative arthrosis of the medial femorotibial compartment. There is mild degenerative arthrosis of the lateral femorotibial compartment. There is moderate degenerative arthrosis of the patellofemoral articulation. There is no demonstrated joint effusion. The soft tissue structures are unremarkable. RAD/Knee 3 Views IMPRESSION: Patellofemoral joint osteoarthrosis. Electronically Signed: Sylvester Aldrich MD ([place]) at 20:22 EDT , Service support ,
== END ==
LOC: MTRAD 17:00
PROVIDERS: PCP Family Medicine; Referring Provider Family Medicine; Visit Provider Family Medicine
DX: M25.562 Pain in left knee (principal)
CPT/HCPCS: 73562

== ENCOUNTER 2021-08-12 11:53 | Emergency (ER) | payer BC, SELFPAY ==
[2021-08-12 11:54] VITALS: BP 117/64; PULSE 66; RESP 18; TEMP 36.7; O2SAT 96; BMI 44.2
--- NOTE | 2021-08-12 12:05 | CT_ITS ---
STUDY: CT BRAIN WITHOUT CONTRAST REASON FOR EXAM: Male, 51 years old. Headache, dizziness RADIATION DOSAGE (If Supplied By Facility): CTDIvol = ( 44.99 ) mGy, DLP = ( 846.73 ) mGycm TECHNIQUE: Transaxial CT imaging of the brain was performed without administration of intravenous contrast material. Individualized dose optimization techniques were used for this CT. COMPARISON: No relevant priors. FINDINGS: Normal soft tissue structures. Normal calvarium. Normal size ventricles and extra-axial spaces for the patient''s age. Normal white matter tracts of the cerebral hemispheres. Normal basal ganglia and thalami. Normal brainstem. Normal cerebellum. There is no intracranial hemorrhage. There are no findings of an acute ischemic infarction. Normal visualized paranasal sinuses. CT/Brain/Head without Contrast IMPRESSION: Normal unenhanced CT scan of the brain. Electronically Signed: Jose M Gloria MD at 13:19 EST , Service support ,
--- NOTE | 2021-08-12 12:05 | EKG12_ITS ---
Test Reason : RAMIREZ Blood Pressure : / mmHG Vent. Rate : 074 BPM Atrial Rate : 074 BPM P-R Int : 198 ms QRS Dur : 108 ms QT Int : 420 ms P-R-T Axes : 003 065 020 degrees QTc Int : 466 ms Sinus rhythm with frequent Premature ventricular complexes Otherwise normal ECG Confirmed by MAURI WOODALL, RUTH ([id number]), technical editor PEPPER HARGROVE ([id number]) on 08/13/2021 10:23:49 AM Referred By: ANGELA/ZULMA Confirmed By:RUTH DOTSON MD
--- NOTE | 2021-08-12 12:06 | EDS_ITS ---
HPI History of Present Illness Chief Complaint: Headache Narrative Narrative: Patient with past medical history of coronary artery disease with stenting presents with headache and dizziness that started approximately an hour and 15 minutes ago. He states is worse when he tries to stand up. He did not have a thunderclap headache, but felt mildly lightheaded and dizzy, worse with standing up and walking. He states when he got up from a seated position, and went to walk, he felt drunk. He denies any new paresthesias. No chest pain or shortness of breath. He states no heart symptoms. The RN at work was concerned because she states that he was in bigeminy and he had bradycardia in the 30s. She sent him to the emergency department for evaluation. He denies any nausea or vomiting. No dysuria or hematuria. No diarrhea. No other symptoms. PFSH PFS Medical History Atherosclerotic heart disease of [place] coronary artery without angina pectoris Back pain Chronic pain Depression Edema Family history of ischemic heart disease Former smoker History of lateral wall myocardial infarction (07/22/09) History of steroid therapy HLD (hyperlipidemia) HTN (hypertension) Hx of echocardiogram Myocardial infarct right elbow surgery Shortness of breath on exertion Tobacco use disorder Wears contact lenses Home Medications aspirin 325 mg PO DAILY@0800 11/09/18 [History Last Taken 11/09/18] gabapentin 300 mg PO QHS 11/09/18 [History Last Taken 11/08/18] omega-3 fatty acids-fish oil 300 mg-1,000 mg capsule 2 cap PO DAILY 11/29/18 [History Last Taken Unknown] amlodipine 10 mg tablet 10 mg PO DAILY tab 10/27/20 [History Last Taken 01/02/21 10:00] chlorthalidone 25 mg tablet 25 mg PO DAILY tab 10/27/20 [History Last Taken 01/02/21 10:00] hydroxyzine HCl 50 mg tablet 50 mg PO QHS tab 10/27/20 [History Last Taken Unknown] losartan 50 mg tablet 100 mg PO DAILY tab 10/27/20 [History Last Taken 01/02/21 10:00] metoprolol tartrate 25 mg tablet 25 mg PO BID tab 10/27/20 [History Last Taken 01/02/21 10:00] nortriptyline 50 mg capsule 50 mg PO QHS cap 10/27/20 [History Last Taken Unknown] potassium chloride 20 mEq tablet,extended release 40 meq PO DAILY 10/27/20 [History Last Taken Unknown] Ca carb-Ca gluc-Mg ox-Mg gluco [Calcium Magnesium] 1 tab PO DAILY 03/27/21 [History Last Taken Unknown] amoxicillin-pot clavulanate 875 mg PO Q12H #20 tablet 03/27/21 [Rx Last Taken Unknown] multivitamin 1 tab PO DAILY 03/27/21 [History Last Taken Unknown] meclizine 25 mg PO TID PRN #14 tab 08/12/21 [Rx Last Taken Unknown] Allergy/AdvReac Type Severity Reaction Status Date / Time bee venom protein (honey bee) Allergy Swelling Verified 08/12/21 11:59 atorvastatin AdvReac Severe Myalgias Verified 08/12/21 11:59 cephalexin [From Keflex] AdvReac GIVES ME Verified 08/12/21 11:59 THE JITTERS shellfish derived AdvReac Nausea/Vom/ Verified 08/12/21 11:59 Diarrhea Family History Father , Age 57 of [place], had [place]/CAD at age 39 CAD (coronary artery disease) Myocardial infarction Surgical History History of dental surgery Stented coronary artery (07/22/09) Social History household members: other details: mother housing: house current occupational status: employed 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[employer] 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: Former smoker pack-years: 20 alcohol intake: never do you feel safe at home: Yes ROS ROS ED ROS Narrative Constitutional: No fever, no chills. HEENT: No sore throat. No neck pain. No loss of vision. No rhinorrhea. Cardiovascular: No chest pain. No palpitations. No pedal edema. Respiratory: No cough, no shortness of breath. Abdominal: No abdominal pain. No nausea. No vomiting. Genitourinary: No dysuria. No hematuria. Musculoskeletal: No myalgias. No arthralgias. Neurologic: Positive headaches. Positive dizziness. Positive lightheadedness. No paresthesias. Unsteady gait. Skin: No rash. No change in color. Psychiatric: No depression. No anxiety. EXAM Physical Exam Narrative Exam Narrative: Afebrile. Vital signs noted. HEENT: Normocephalic. Atraumatic. PERRL, EOMI. Neck soft and supple. No point tenderness or step off. Cardiovascular: Regular rate and rhythm. Intermittent bigeminy on the monitor. No murmurs, rubs, or gallops appreciated. Respiratory: No tachypnea. Lungs clear to auscultation bilaterally. Gastrointestinal: Abdomen soft, nontender, with normoactive bowel sounds. No rebound or guarding. Neurological: Awake. Alert. Nonfocal, nonlateralizing. Normal cerebellar functioning. No nystagmus. Skin: No rash. Normal color. No pallor. Musculoskeletal: No pedal edema. Full range of motion extremities. Const Vital Signs: 08/12/21 11:54 08/12/21 13:37 Temperature 98.0 F Temperature Source Temporal Pulse Rate 66 84 Pulse Rate [Lying] 68 Pulse Rate [Sitting] 74 Pulse Rate [Standing] 84 Respiratory Rate 18 16 Blood Pressure 117/64 119/85 H Blood Pressure [Lying] 114/69 Blood Pressure [Sitting] 120/72 Blood Pressure [Standing] 119/85 H Blood Pressure Mean 81 96 Blood Pressure Mean [Lying] 84 Blood Pressure Mean [Sitting] 88 Blood Pressure Mean [Standing] 96 Pulse Ox 96 Oxygen Delivery Method Room Air Room Air MDM MDM MDM Narrative Medical decision making narrative: Comprehensive work-up was pursued. He may be orthostatic. I will obtain a CT of the brain along with a chest pain work-up checking his troponin for the reported bradycardia and bigeminy. EKG will also be obtained along with baseline laboratories. His EKG demonstrates sinus rhythm with frequent PVCs at 74 bpm but no acute ST changes. Upon repeat examination at approximately 1350, on the monitor he has a normal sinus rhythm without PVCs. His orthostatics are negative, but he was symptomatic. CT the brain shows no acute process. CBC is grossly normal with a normal WBC count and hemoglobin normal at 15.1. Electrolyte panel is grossly unremarkable except for BUN of 20 with a creatinine of 1.0. High-sensitivity troponin is negative at 5. Chest x- ray shows no acute abnormality. I do think he may be having more of a benign positional vertigo. He was given meclizine 25 mg orally, and will be ambulated in the emergency department. At this point time, I feel he be discharged safely home with follow-up. Return instructions to the emergency department were reviewed. He will be given a prescription for meclizine. 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 I was able to discuss the patient with Dr. Alfonso who agrees with close outpatient follow-up for possible Holter monitoring, and to have the patient cut out caffeinated products. Disposition is discharged home in stable condition. Lab Data Labs: Laboratory Results - last 24 hr 08/12/21 08/12/21 12:30 12:30 WBC 8.6 RBC 4.92 Hgb 15.1 Hct 42.3 MCV 86.0 MCH 30.7 MCHC 35.7 RDW Std Deviation 40.1 RDW Coeff of Sandy 12.9 Plt Count 299 MPV 10.0 Immature Gran % (Auto) 0.500 Neut % (Auto) 61.1 Lymph % (Auto) 26.2 [place] % (Auto) 7.5 Eos % (Auto) 3.2 Baso % (Auto) 1.5 H Absolute Neuts (auto) 5.3 Absolute Lymphs (auto) 2.26 Nucleated RBC % 0 Sodium 141 Potassium 3.8 Chloride 106 Carbon Dioxide 26.0 Anion Gap 9 BUN 20 H Creatinine 1.00 Estim Creat Clear Calc 106.09 Est GFR (MDRD) Af Amer 101 Est GFR (MDRD) Non-Af 84 BUN/Creatinine Ratio 20.1 H Glucose 86 Calcium 9.2 Troponin I High Sens 5 Radiography Diagnostic Testing: Clinical Impression(s) from Imaging Studies Brain CT 08/12/21 12:05 IMPRESSION: Normal unenhanced CT scan of the brain. Electronically Signed: Jose M Gloria MD at 13:19 EST , Service support , Chest X-Ray 08/12/21 12:32 IMPRESSION: No acute abnormality is seen. Electronically Signed: Jose M Gloria MD at 12:59 EST , Service support , Discharge Plan Triage Chief Complaint: Headache ED Provider: Manuel Griffin Dx/Rx/DC Orders Clinical Impression: Dizziness, Ventricular bigeminy seen on manager monitoring, Frequent PVCs, Headache Instructions: PVCs, ED Dizziness, Uncertain Cause, ED Headache Unspecified Prescriptions: New meclizine 25 mg tablet 25 mg PO TID PRN (Reason: dizziness) Qty: 14 RF: 0 No Action losartan 50 mg tablet 100 mg PO DAILY RF: 0 omega-3 fatty acids-fish oil [Fish Oil] 300-1,000 mg capsule 2 cap PO DAILY RF: 0 amlodipine 10 mg tablet 10 mg PO DAILY RF: 0 chlorthalidone 25 mg tablet 25 mg PO DAILY RF: 0 hydroxyzine HCl 50 mg tablet 50 mg PO QHS RF: 0 metoprolol tartrate 25 mg tablet 25 mg PO BID RF: 0 potassium chloride 20 mEq tablet extended release 40 meq PO DAILY RF: 0 nortriptyline 50 mg capsule 50 mg PO QHS RF: 0 aspirin 325 MG tablet 325 mg PO DAILY@0800 RF: 0 gabapentin 300 MG capsule 300 mg PO QHS RF: 0 multivitamin Tablet 1 tab PO DAILY RF: 0 Calcium Magnesium 500 mg calcium -250 mg Tablet 1 tab PO DAILY RF: 0 amoxicillin-pot clavulanate [amoxicillin-pot clavulanate] 875 MG tablet 875 mg PO Q12H Qty: 20 RF: 0 Primary Care Provider: Eric Odom Referrals: Eric Alfonso MD [STAFF PHYSICIAN] - 08/17/21 Eric Odom MD [Primary Care Provider] - 08/19/21 Disposition Disposition: Home, Self Care
--- NOTE | 2021-08-12 12:32 | RAD_ITS ---
STUDY: X-RAY CHEST REASON FOR EXAM: Male, 51 years old. Chest pain TECHNIQUE: Single AP portable view of the chest. COMPARISON: Comparison is made with prior study of 11/09/2018. FINDINGS: EKG electrodes are seen. The lungs are clear and expanded. There is no demonstrated pleural abnormality. Normal size heart. Normal mediastinum and cole. Normal visualized pulmonary arteries. There is atherosclerotic tortuosity of the aortic arch and descending thoracic aorta. There are diffuse degenerative changes of the visualized thoracic spine. Normal visualized ribs, clavicles, and shoulders. There is no demonstrated abnormality of the visualized soft tissue structures of the upper abdomen. RAD/Chest 1 View (Portable) IMPRESSION: No acute abnormality is seen. Electronically Signed: Jose M Gloria MD at 12:59 EST , Service support ,
[2021-08-12 12:45] LABS: Absolute Lymphocyte Count 2.26 X10^3/uL (0.83-4.51); Absolute Neutrophil Count 5.3 X10^3/uL (2.0-7.7); Basophil# 0.13 X10^3/uL; Basophil% 1.5 % (0-1); Eosinophil# 0.28 X10^3/uL; Eosinophils% 3.2 % (0-5); Hematocrit 42.3 % (40-54); Hemoglobin 15.1 g/dL (13.0-16.5); Lymphocyte # 2.26 X10^3/ul (0.83-4.51); Lymphocyte % 26.2 % (19-41); Mean Corp Hgb Conc 35.7 g/dL (32-36); Mean Corpuscular Hgb 30.7 pg (27.0-32.0); Monocyte# 0.65 X10^3/uL; Monocyte% 7.5 % (0-10); NRBC Flagged by Analyzer 0 % (0-5); Neutrophil # 5.27 X10^3/uL (2.7-7.7); Neutrophil % 61.1 % (47-70); Platelet Count 299 K/mm3 (150-450); RBC Distribution Width CV 12.9 % (11.6-14.6); RBC Distribution Width SD 40.1 fl (35.1-43.9); Red Blood Count 4.92 M/mm3 (4.6-6.2); White Blood Count 8.6 K/mm3 (4.4-11.0)
[2021-08-12 12:59] LABS: Anion Gap 9 (5-15); BUN 20 mg/dL (7-18); BUN/Creat Ratio 20.1 RATIO (10-20); Calcium,Total 9.2 mg/dL (8.5-10.1); Chloride 106 mmol/L (98-107); EST Glomerular Filtration Rate 84 mL/min (>60); Est Glom Filt Rate - Afr Amer 101 mL/min (>60); Estimated Creatinine Clearance 106.09 ml/min; Glucose 86 mg/dL (74-106); Potassium 3.8 mmol/L (3.5-5.1); Sodium Level 141 mmol/L (136-145); Troponin-I HS 5 pg/mL (3.0-78.0)
[2021-08-12 13:37] VITALS: BP 114/69; BP 119/85; BP 120/72; PULSE 68; PULSE 74; PULSE 84; RESP 16
[2021-08-12] MEDS: 0.9% Normal Saline 1,000 ML 1000 ML IV (13:39)
[2021-08-12] MEDS: Meclizine HCl 25 MG Tablet PO (14:55)
[2021-08-12 15:17] VITALS: BP 136/84; PULSE 66; RESP 14; O2SAT 99
== END 2021-08-12 15:18 | disposition home or self-care (01) ==
PROVIDERS: Emergency Provider Emergency Medicine; PCP Family Medicine
DX: R42 Dizziness and giddiness (principal); R00.8 Other abnormalities of heart beat; I49.3 Ventricular premature depolarization; R51.9 Headache, unspecified; I25.2 Old myocardial infarction; I25.10 Atherosclerotic heart disease of native coronary artery without angina pectoris; Z95.5 Presence of coronary angioplasty implant and graft; Z87.891 Personal history of nicotine dependence
CPT/HCPCS: 70450; 71045; 80048; 84484; 85025; 93005; 99285; J7030; A4216

== ENCOUNTER 2021-09-11 13:53 | Outpatient (CLI) | payer BC, SELFPAY | END 2021-09-11 23:59 | disposition short-term general hospital (02) | LOC: PSN 13:57 | PROVIDERS: PCP Family Medicine; Referring Provider Internal Medicine Cardiovascular Disease; Visit Provider Internal Medicine Cardiovascular Disease | DX: R00.2 Palpitations (principal) | CPT/HCPCS: 93225; 93226 ==

== ENCOUNTER 2021-09-21 17:54 | Outpatient (CLI) | payer BC, SELFPAY | END 2021-09-21 23:59 | disposition short-term general hospital (02) | PROVIDERS: PCP Family Medicine; Visit Provider Family Medicine | DX: Z20.822 Contact with and (suspected) exposure to COVID-19 (principal) | CPT/HCPCS: 87635; U0003; U0005 ==

== ENCOUNTER 2021-10-01 17:43 | Outpatient (CLI) | payer BC, SELFPAY | END 2021-10-01 23:59 | disposition short-term general hospital (02) | PROVIDERS: PCP Family Medicine; Visit Provider Family Medicine | DX: Z20.822 Contact with and (suspected) exposure to COVID-19 (principal) | CPT/HCPCS: 87635; U0003; U0005 ==

== ENCOUNTER 2021-10-10 16:45 | Emergency (ER) | payer BC, SELFPAY ==
[2021-10-10 16:47] VITALS: BP 174/102; PULSE 93; RESP 18; TEMP 36.6; O2SAT 99; BMI 46.2
--- NOTE | 2021-10-10 17:10 | EDS_ITS ---
HPI History of Present Illness Chief Complaint: Allergic Reaction Narrative Narrative: 51-year-old male presenting with 2 days of sore throat. Patient states he just finished treatment for sinusitis with steroids and amoxicillin. He states he completed the whole 10 days. When he finished he started to have a sore throat. He states is difficult to swallow at times. He is able to tolerate his own secretions. Patient has tried throat lozenges with some throat which do not appear to be helping. He denies acid reflux. He has no abdominal pain. Patient has no other complaints at this time. [facility] Medical History Atherosclerotic heart disease of [place] coronary artery without angina pectoris Back pain Chronic pain Depression Edema Family history of ischemic heart disease Former smoker History of lateral wall myocardial infarction (07/22/09) History of steroid therapy HLD (hyperlipidemia) HTN (hypertension) Hx of echocardiogram Myocardial infarct right elbow surgery Shortness of breath on exertion Tobacco use disorder Wears contact lenses Home Medications aspirin 325 mg PO DAILY@0800 11/09/18 [History Last Taken 11/09/18] amlodipine 10 mg tablet 10 mg PO DAILY tab 10/27/20 [History Last Taken 01/02/21 10:00] chlorthalidone 25 mg tablet 25 mg PO DAILY tab 10/27/20 [History Last Taken 01/02/21 10:00] losartan 50 mg tablet 100 mg PO DAILY tab 10/27/20 [History Last Taken 01/02/21 10:00] metoprolol tartrate 25 mg tablet 25 mg PO BID tab 10/27/20 [History Last Taken 01/02/21 10:00] potassium chloride 20 mEq tablet,extended release 40 meq PO DAILY 10/27/20 [History Last Taken Unknown] Ca carb-Ca gluc-Mg ox-Mg gluco [Calcium Magnesium] 1 tab PO DAILY 03/27/21 [History Last Taken Unknown] multivitamin 1 tab PO DAILY 03/27/21 [History Last Taken Unknown] meclizine 25 mg PO TID PRN #14 tab 08/12/21 [Rx Last Taken Unknown] glucosamine HCl 1,500 mg tablet 1,500 mg PO DAILY 08/17/21 [History Last Taken Unknown] hydroxyzine HCl 50 mg tablet 100 mg PO QHS tab 08/17/21 [History Last Taken Unknown] naproxen 500 mg tablet 500 mg PO BID PRN 08/17/21 [History Last Taken Unknown] nortriptyline 50 mg capsule 100 mg PO QHS cap 08/17/21 [History Last Taken Unknown] lidocaine HCl [Lidocaine Viscous] 5 ml MUCOUS MEMBRANE Q4H PRN #100 ml 10/10/21 [Rx Last Taken Unknown] nystatin 100,000 unit PO Q6H 5 Days #20 ml 10/10/21 [Rx Last Taken Unknown] sucralfate [Carafate] 5 ml PO Q4H PRN #100 ml 10/10/21 [Rx Last Taken Unknown] Allergy/AdvReac Type Severity Reaction Status Date / Time bee venom protein (honey bee) Allergy Swelling Verified 10/10/21 16:50 atorvastatin AdvReac Severe Myalgias Verified 10/10/21 16:50 cephalexin [From Keflex] AdvReac GIVES ME Verified 10/10/21 16:50 THE JITTERS shellfish derived AdvReac Nausea/Vom/ Verified 10/10/21 16:50 Diarrhea Family History Father , Age 57 of [place], had [place]/CAD at age 39 CAD (coronary artery disease) Myocardial infarction Surgical History History of dental surgery Stented coronary artery (07/22/09) Social History household members: other details: mother housing: house current occupational status: employed 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[employer] 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: Former smoker pack-years: 20 alcohol intake: never do you feel safe at home: Yes ROS ROS ED Constitutional Constitutional ED: Denies chills or fever(s) Eyes Eyes: Denies blurry vision or diplopia ENT ENT ED: Reports sore throat; Denies rhinorrhea Cardiovascular Cardiovascular: Denies chest pain or palpitations Respiratory/Chest Respiratory/Chest: Denies cough or dyspnea Gastrointestinal Gastrointestinal: Denies abdominal pain or nausea Genitourinary Genitourinary ED: Denies dysuria or hematuria Musculoskeletal Musculoskeletal: Denies arthralgias or myalgias Integumentary Denies abscess or rash Neurologic Neurologic: Denies headache(s), paresthesias or weakness EXAM Physical Exam Const Vital Signs: 10/10/21 16:47 Temperature 97.8 F Temperature Source Temporal Pulse Rate 93 Respiratory Rate 18 Blood Pressure 174/102 H Blood Pressure Mean 126 Pulse Ox 99 Oxygen Delivery Method Room Air Positive well nourished General Appearance ED: NAD; Negative for pallor HEENT Reports moist mucous membranes Negative for trauma Mouth ED: Yes oral and palatal mucosa normal, Yes lips normal, Yes tongue n ormal, Yes moist mucous membranes normal, No dysphonia, No drooling, No muffled voice, No trismus and No thickened frenulum Mouth: oral and palatal mucosa normal, lips normal, tongue normal, No dysphonia, No drooling, No muffled voice, No trismus and No thickened frenulum Teeth and Gingiva: Negative for abnormal tooth and associated gingiva Throat: posterior oropharynx normal, tonsils normal and uvula midline Eyes PERRL and EOMs intact bilaterally Neck no lymphadenopathy and supple Resp normal respiratory effort and clear to auscultation bilaterally Cardio regular rate and regular rhythm Neuro oriented x3 and CN's II-XII intact bilaterally Sensorium / Orientation: alert Psych mental status grossly normal Skin General Skin Exam: Negative for jaundice or pallor MDM MDM MDM Narrative Medical decision making narrative: Patient seen and evaluated for sore throat and burning. He just finished a course of steroids and amoxicillin. His oropharynx is patent without stridor. I do not see the blisters she is complaining about on his tongue. No sublingual edema. Buccal mucosal is normal. Tongue is not swollen. Posterior oropharynx is without erythema or exudates. No lymphadenopathy. I feel the patient most likely has a chemical esophagitis from the recent steroids. I think this is less likely an allergic reaction to Amoxil as he is tolerated this before. He was given a GI cocktail and states that this not significantly improve his pain. After this I did speak with Dr. Trujillo regarding the chemical esophagitis and he recommended putting the patient on a Carafate and viscous lidocaine solution which she can do every 4 hours which is 5% lidocaine 5 mL/Carafate 5 mL. He also recommended putting him on nystatin swish and swallow 200,000 units every 6 hours x5 days. I did give the patient the nystatin swish and swallow in the emergency room. We do not have liquid Carafate so I did write the prescription for this. He is already received lidocaine. Patient will follow up with Dr. Trujillo as needed outpatient. He is given return precautions. Impression: 1. Chemical esophagitis Lab Data Attestation: I reviewed the patient's lab results. Discharge Plan Triage Chief Complaint: Allergic Reaction ED Provider: Rafa Ricardo Dx/Rx/DC Orders Instructions: Esophagitis Prescriptions: New lidocaine HCl [Lidocaine Viscous] 2 % solution 5 ml mucous membrane Q4H PRN (Reason: pain) Qty: 100 RF: 0 sucralfate [Carafate] 100 mg/mL suspension 5 ml PO Q4H PRN (Reason: pain) Qty: 100 RF: 0 nystatin 100,000 unit/mL suspension 100,000 unit PO Q6H 5 Days Qty: 20 RF: 0 No Action losartan 50 mg tablet 100 mg PO DAILY RF: 0 amlodipine 10 mg tablet 10 mg PO DAILY RF: 0 chlorthalidone 25 mg tablet 25 mg PO DAILY RF: 0 metoprolol tartrate 25 mg tablet 25 mg PO BID RF: 0 potassium chloride 20 mEq tablet extended release 40 meq PO DAILY RF: 0 hydroxyzine HCl 50 mg tablet 100 mg PO QHS RF: 0 nortriptyline 50 mg capsule 100 mg PO QHS RF: 0 naproxen 500 mg tablet 500 mg PO BID PRNRF: 0 glucosamine HCl 1,500 mg tablet 1,500 mg PO DAILY RF: 0 aspirin 325 MG tablet 325 mg PO DAILY@0800 RF: 0 multivitamin Tablet 1 tab PO DAILY RF: 0 Calcium Magnesium 500 mg calcium -250 mg Tablet 1 tab PO DAILY RF: 0 meclizine 25 mg tablet 25 mg PO TID PRN (Reason: dizziness) Qty: 14 RF: 0 Primary Care Provider: Eric Odom Referrals: Eric Odom MD [Primary Care Provider] - Meek Trujillo DO [STAFF PHYSICIAN] - As soon as possible Disposition Disposition: Home, Self Care Discharge Date/Time: 10/10/21 19:44
[2021-10-10] MEDS: Mag Hydrox/Al Hydrox/Simeth 30 ML UDC PO (17:13)
[2021-10-10] MEDS: NYSTATIN 500,000 UNIT/5 ML UDC 500000 UNIT PO (19:41)
== END 2021-10-10 19:44 | disposition home or self-care (01) ==
PROVIDERS: Emergency Provider Student in an Organized Health Care Education/Training Program; PCP Family Medicine; Visit Provider Student in an Organized Health Care Education/Training Program
DX: K20.80 Other esophagitis without bleeding (principal); I25.10 Atherosclerotic heart disease of native coronary artery without angina pectoris; I25.2 Old myocardial infarction; Z95.5 Presence of coronary angioplasty implant and graft; Z87.891 Personal history of nicotine dependence
CPT/HCPCS: 99283

== ENCOUNTER 2021-12-20 14:31 | Emergency (ER) | payer BC, SELFPAY ==
[2021-12-20 14:32] VITALS: BP 120/78; PULSE 85; RESP 14; TEMP 36.6; O2SAT 97; BMI 45.1
--- NOTE | 2021-12-20 15:22 | ED.VIS.LOWEX ---
HPI History of Present Illness HPI Narrative: Patient presents with laceration to his right foot that occurred today. Patient states he stepped on broken glass and cut his foot. Patient states that the bleeding has been intermittent. Patient describes his pain as dull. Patient states it is worse with movement. Patient denies any paresthesias or weakness. Patient is unsure if there is any retained foreign body. Patient states his last tetanus was more than 10 years ago. Chief Complaint: Laceration Informant: patient Occured/Mechanism Comment: Cut on broken glass Onset/Context/Timing Context: Sudden Onset Quality of Pain: Dull Location: Plantar aspect right foot Worsened by: Movement Relieved by: Rest Associated Symptoms Associated Symptoms: Negative for Parasthesia, Weakness and Loss of Funtion Narrative Tetanus Immunization: >10 years PFSH PFSH Medical History Atherosclerotic heart disease of [place] coronary artery without angina pectoris Back pain Chronic pain Depression Edema Family history of ischemic heart disease Former smoker History of lateral wall myocardial infarction (07/22/09) History of steroid therapy HLD (hyperlipidemia) HTN (hypertension) Hx of echocardiogram Myocardial infarct right elbow surgery Shortness of breath on exertion Tobacco use disorder Wears contact lenses Home Medications aspirin 325 mg PO DAILY@0800 11/09/18 [History Last Taken 11/09/18] amlodipine 10 mg tablet 10 mg PO DAILY tab 10/27/20 [History Last Taken 01/02/21 10:00] chlorthalidone 25 mg tablet 25 mg PO DAILY tab 10/27/20 [History Last Taken 01/02/21 10:00] metoprolol tartrate 25 mg tablet 25 mg PO BID tab 10/27/20 [History Last Taken 01/02/21 10:00] potassium chloride 20 mEq tablet,extended release 40 meq PO DAILY 10/27/20 [History Last Taken Unknown] Ca carb-Ca gluc-Mg ox-Mg gluco [Calcium Magnesium] 1 tab PO DAILY 03/27/21 [History Last Taken Unknown] multivitamin 1 tab PO DAILY 03/27/21 [History Last Taken Unknown] glucosamine HCl 1,500 mg tablet 1,500 mg PO DAILY 08/17/21 [History Last Taken Unknown] hydroxyzine HCl 50 mg tablet 100 mg PO QHS tab 08/17/21 [History Last Taken Unknown] naproxen 500 mg tablet 500 mg PO BID PRN 08/17/21 [History Last Taken Unknown] nortriptyline 50 mg capsule 100 mg PO QHS cap 08/17/21 [History Last Taken Unknown] losartan 100 mg tablet 100 mg PO DAILY 11/17/21 [History Last Taken Unknown] Allergy/AdvReac Type Severity Reaction Status Date / Time bee venom protein (honey bee) Allergy Swelling Verified 12/20/21 14:33 atorvastatin AdvReac Severe Myalgias Verified 12/20/21 14:33 cephalexin [From Keflex] AdvReac GIVES ME Verified 12/20/21 14:33 [employer] shellfish derived AdvReac Nausea/Vom/ Verified 12/20/21 14:33 Diarrhea Family History Father , Age 57 of [place], had ND/CAD at age 39 CAD (coronary artery disease) Myocardial infarction Surgical History History of dental surgery Stented coronary artery (07/22/09) Social History household members: other details: mother housing: house current occupational status: employed 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[employer] 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: Former smoker pack-years: 20 alcohol intake: never do you feel safe at home: Yes ROS ROS ED Constitutional Constitutional ED: Denies chills or fever(s) Eyes Eyes: Denies blurry vision or change in vision ENT ENT ED: Denies rhinorrhea or sore throat Cardiovascular Cardiovascular: Denies chest pain or palpitations Respiratory/Chest Respiratory/Chest: Denies cough or dyspnea Gastrointestinal Gastrointestinal: Denies nausea or vomiting Genitourinary Genitourinary ED: Denies dysuria or hematuria Musculoskeletal Musculoskeletal: Denies back pain or neck pain Integumentary Denies abscess or rash Neurologic Neurologic: Denies headache(s) or weakness Allergic/Immunologic Allergic/Immunologic ED: Denies mouth swelling or urticaria EXAM Physical Exam Const Vital Signs: 12/20/21 14:32 Temperature 97.8 F Temperature Source Temporal Pulse Rate 85 Respiratory Rate 14 Blood Pressure 120/78 Blood Pressure Mean 92 Pulse Ox 97 Oxygen Delivery Method Room Air Positive well nourished, well developed and obese General Appearance ED: well developed and NAD Nutritional Appearance: obese HEENT Reports moist mucous membranes Neck full ROM Extremity Extremity Narrative: There is a 2 cm full-thickness linear laceration over the plantar aspect of the right foot. There is moderate gapping of the wound margins. There is no foreign bodies visualized. There is no active bleeding at this time. There is full range of motion of the right foot. Sensation is intact to light touch in all digits. Capillary refill was less than 2 seconds in all digits. Pedal pulse was 2+. Neuro oriented x3, CN's II-XII intact bilaterally, moves all extremities and no sensory deficits noted Sensorium / Orientation: alert Motor Exam: strength 5/5 throughout Psych mental status grossly normal MDM MDM MDM Narrative Medical decision making narrative: X-rays of the right foot were obtained. There are 3 views. On my interpretation, there is no acute fracture. There is no dislocation. There is no foreign body noted. There is no soft tissue swelling. Radiologist also interpreted the x-rays and agrees. The wound was cleaned and irrigated with copious amounts of normal saline. The wound was anesthetized with 1% plain lidocaine locally. The wound was closed with 3 simple interrupted #4-0 nylon sutures under sterile technique. Patient tolerated the procedure well. Bacitracin dressing was applied. Patient was instructed to keep the wound clean and dry. Patient was instructed to follow-up with his primary care physician in 7 to 10 days for wound recheck and suture removal. Patient understood and was agreeable with the plan. All questions were answered. Discharge Plan Triage Chief Complaint: Laceration ED Provider: Chu Lester Dx/Rx/DC Orders Clinical Impression: Laceration of right foot, Morbid obesity with BMI of 40.0-44.9, adult Instructions: ED Laceration, Foot: All Closures Prescriptions: No Action amlodipine 10 mg tablet 10 mg PO DAILY RF: 0 chlorthalidone 25 mg tablet 25 mg PO DAILY RF: 0 metoprolol tartrate 25 mg tablet 25 mg PO BID RF: 0 potassium chloride 20 mEq tablet extended release 40 meq PO DAILY RF: 0 hydroxyzine HCl 50 mg tablet 100 mg PO QHS RF: 0 nortriptyline 50 mg capsule 100 mg PO QHS RF: 0 naproxen 500 mg tablet 500 mg PO BID PRNRF: 0 glucosamine HCl 1,500 mg tablet 1,500 mg PO DAILY RF: 0 losartan 100 mg tablet 100 mg PO DAILY RF: 0 aspirin 325 MG tablet 325 mg PO DAILY@0800 RF: 0 multivitamin Tablet 1 tab PO DAILY RF: 0 Calcium Magnesium 500 mg calcium -250 mg Tablet 1 tab PO DAILY RF: 0 Primary Care Provider: Eric Odom Referrals: Eric Odom MD [Primary Care Provider] - 7 Days for suture removal Disposition Disposition: Home, Self Care
[2021-12-20] MEDS: Diphth,Pertuss(Acell),Tet Vac 0.5 ML Vial IM (15:45)
[2021-12-20] MEDS: Lidocaine 1% (20 ml mdv) 20 ML Vial INFILT (15:46)
--- NOTE | 2021-12-20 15:55 | RAD_ITS ---
STUDY: X-RAY - RIGHT FOOT CLINICAL: Male, 51 years old. Injury/Pain TECHNIQUE: 3 view(s) of the foot. COMPARISON: None. FINDINGS: Normal talus, calcaneus, and tarsal bones. Small plantar calcaneal enthesophyte. Tiny posterior calcaneal enthesophyte and calcification of the distal Achilles tendon suggestive suggestive of insertional Achilles tendinitis. Normal visualized subtalar, talonavicular, calcaneocuboid, tarsal and tarsometatarsal articulations. Normal metatarsi. Normal metatarsophalangeal joint of the great toe. Normal tibial and fibular sesamoid bones. Normal interphalangeal joint of the great toe. Normal phalanges of the great toe. Normal second through fifth metatarsophalangeal joints. Normal interphalangeal joints and phalanges of the lesser toes. The soft tissue structures are unremarkable. RAD/Foot min 3 Views IMPRESSION: 1. No acute fracture, dislocation, radiopaque foreign body. 2. Suspect insertional Achilles tendinitis. Electronically Signed: Beau Roberts MD at 16:22 EDT ,
== END 2021-12-20 16:32 | disposition home or self-care (01) ==
PROVIDERS: Emergency Provider Emergency Medicine; PCP Family Medicine; Visit Provider Emergency Medicine
DX: S91.311A Laceration without foreign body, right foot, initial encounter (principal); E66.01 Morbid (severe) obesity due to excess calories; Z68.41 Body mass index [BMI] 40.0-44.9, adult; I25.10 Atherosclerotic heart disease of native coronary artery without angina pectoris; I25.2 Old myocardial infarction; W25.XXXA Contact with sharp glass, initial encounter; Z87.891 Personal history of nicotine dependence; Z23 Encounter for immunization
CPT/HCPCS: 12001; 73630; 90471; 90715; 96372; 99284

== ENCOUNTER → 2022-04-19 | Outpatient (CLI) | payer BC, SELFPAY ==
--- NOTE | 2022-04-19 16:26 | RAD_ITS ---
EXAM: XR LUMBOSACRAL SPINE, 4 OR 5 VIEWS CLINICAL INDICATION: LOW BACK PAIN TECHNIQUE: Frontal, lateral and bilateral oblique views of the lumbar spine. This report was created using [email or web address] report generation technology. COMPARISON: 08/20/2020. FINDINGS: VERTEBRAE: Moderate bilateral facet arthropathy L4-5 and L5-S1. Approximately 5 mm anterior subluxation of L4 on L5 slightly increased compared to the previous exam. Preserved vertebral body height. No fracture. No spondylolisthesis. Preservation of the normal lumbar lordosis. DISC SPACES: Mild joint space narrowing L4-5 and L5-S1. GASTROINTESTINAL TRACT: Unremarkable as visualized. Included bowel gas pattern is non-obstructive. RAD/L/S Spine Min 4 Views IMPRESSION: Mild anterior subluxation of L4-L5 measuring 5 mm associated with mild degenerative disc and facet disease. No acute abnormality. Electronically Signed: Jose Multani MD at 3:24 EDT ,
== END | disposition home or self-care (01) ==
LOC: MTRAD 16:25
PROVIDERS: PCP Family Medicine; Referring Provider Family Medicine; Visit Provider Family Medicine
DX: M54.50 Low back pain, unspecified (principal)
CPT/HCPCS: 72110

== ENCOUNTER 2022-07-12 16:30 | Outpatient (RCR) | payer OTHER, BC, SELFPAY ==
--- NOTE | 2022-03-26 12:32 | HP.OTEVAL_ITS ---
Patient's Visit Information ARGELIA COPELAND is a 52 year old M, referred to Occupational Therapy by FAB SULLIVAN, with a diagnosis of L partial tear of common extensor tendon/left ulnar nerve entrapment. Date of Evaluation: 03/25/22 Occupational Therapist: Angelica Gordon, DIMASR/[place], CHT - Subjective This 52 year old male was seen for OT eval with dx of partial tear of common extensor tendon of elbow, ulnar nerve entrapment at left ulnar grove. Pt underwent sx on 03/01/22 a open left ulnar nerve release open left lateral ulnar collateral ligament repair and open common extensor tendon repair . pt currently 3 weeks and 3 days s/p. 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 pt is left handed and currently limited with ADLS and IADLS. - Pain left UE 3 Pain Intensity Range: 6 - ROM Elbow: right elbow -10/125 left -45/120 Forearm: right supination 55* pronation WNL Left NT Wrist: right 70/60 left NT Opposition: kapandji opposition right 10 left 6 ROM Comments: pt states he had a left wrist injury about 4 years ago so pt reports he was limited with is ROM - Strength Animal Daycare Provider: right 110# left NT Lateral Pinch: right 12# left NT Tripod Pinch: right 8# left NT - Edema Elbow: right 36cm left 38.5 Wrist: right 21.5cm left 24cm - Sensation Sensation Comments: denies - Quick DASH-Disab of Arm,Shoulder& Hand Quick DASH Score: 81.6650 - Goals Goal:100% adherence to protocol: Yes Goal:Daily scar massage when approriate: Yes Goal:ROM equal to unaffected hand: Yes Goal:Animal Daycare Provider/Pinch strength at least 75% of unaffected hand: Yes Comment: after week 12 Goal:No pain with affected hand use: Yes Goal:Full use of affected hand in daily activities including: Yes - Rehabilitation General Assessment: pt arrives 3 weeks and 3 days s/p from open left ulnar nerve release open left lateral ulnar collateral ligament repair and open common extensor tendon repair. pt has custom orthosis in place and demo IND with donning and doffing. pt currently limited with use of dominate hand for ADls and IADls. Pt would benefit from skilled OT services 2-3x week for 6-8 week. Therapist reviewed skin precautions /scar mtg- AROM of shoulder and slow ROM of elbow flex/ext to tolerance- no forearm or wrist ROM at this time- pt demo understanding and agree to POC. Rehabilitation Potential: Excellent - Anticipated Interventions A/AAROM/PROM, Strengthening, Scar Care, Triggerpoint Release, Orthoses, Joint Protection/Energy Conservation, Ergonomic Education - Visit Plan Frequency: 2-3x /Week Duration: 2 Months General Plan: will initiate ROM of wrist and forearm supination at week 4 after has released pt to perform AROM. will follow guidelines for lateral ulnar collateral ligament repair and open common extensor tendon repair. TEXT: Thank you for the opportunity to evaluate your patient. For Medicare and Medicare HMO plans, please review the plan of care and approve it. It will need to be FAXED BACK to us at [phone] for Medicare purposes. Please let me know if there are questions or concerns regarding this plan of care. Physician Signature: Date:
--- NOTE | 2022-05-05 16:18 | OTREVAL_ITS ---
FAB SULLIVAN, It has been my pleasure to treat ARGELIA COPELAND over the last 15 visits for L partial tear of common extensor tendon/left ulnar nerve entrapment. Please see the progress note below for an update on the occupational therapy plan of care! Subjective: pt arrives states he is feeling better- states his is feeling much better-. pt is 9 weeks and 2 days s/p from extensor tendon repair Objective/Function: left elbow -20/130. left forearm supination 45*. right forearm supination 50*. left 911 telecommunicator strength 45#. left lateral pinch 20#. left tripod pinch 16#. pt has made good gains with his ROM and strength - Pt would benefit from further skilled OT services to increase pts strength to return to his work tasks- Plan Frequency: 2-3x /Week Duration: 2 Months Visits in this POC: 18 Plan: will contact to submit c9 to continue pts OT until he sees 06/04/22 Goals - Goals Patient Goals: Regain Mobility, Regain Strength, Use Hand/Wrist/Arm Normally Again Goal:100% adherence to protocol: Yes Goal:Daily scar massage when approriate: Yes Goal:ROM equal to unaffected hand: Yes Goal:Public Health Technician/Pinch strength at least 75% of unaffected hand: Yes Goal:No pain with affected hand use: Yes Goal:Full use of affected hand in daily activities including: Yes Anticipated Interventions Anticipated Interventions: A/AAROM/PROM, Strengthening, Scar Care, Triggerpoint Release, Orthoses, Joint Protection/Energy Conservation, Ergonomic Education Please do not hesitate to contact me at [phone] by phone or if you have questions or concerns regarding this new plan of care! Sincerely, Angelica Gordon, OTR/L, CHT
--- NOTE | 2022-05-26 15:46 | HP.OTREVAL ---
FAB SULLIVAN, It has been my pleasure to treat ARGELIA COPELAND over the last 2 visits for L partial tear of common extensor tendon/left ulnar nerve entrapment. Please see the progress note below for an update on the occupational therapy plan of care! Subjective: pt arrives new c9 approval with 12 more visits until 08/02/22 -12 weeks and 2 days s/p from extensor tendon repair of left UE. pt states he has noticed increase ROM without discomfort- pt states his hand does continue to swell- mostly after work- pt states all feeling has returned to his hand- pt is more ind. with ADLS - pt states discomfort with ulnar nerve at olecranon- pt states he can shave his head and reach the back of his head- Objective/Function: left elbow -20/130. left forearm supination 55*. right forearm supination 60*. left human geography instructor strength 55#. left lateral pinch 20#. left tripod pinch 16#. pt has made good gains with his ROM and strength - Pt would benefit from further skilled OT services to increase pts strength to return to his work tasks- Plan Frequency: 2-3x /Week Duration: 2 Months Visits in this POC: 12 Plan: will contact to submit c9 to continue pts OT until he sees 05/27/22 Goals - Goals Patient Goals: Regain Mobility, Regain Strength, Use Hand/Wrist/Arm Normally Again Goal:100% adherence to protocol: Yes Goal:Daily scar massage when approriate: Yes Goal:ROM equal to unaffected hand: Yes Goal:Nailing Machine Operator/Pinch strength at least 75% of unaffected hand: Yes Goal:No pain with affected hand use: Yes Goal:Full use of affected hand in daily activities including: Yes Anticipated Interventions Anticipated Interventions: A/AAROM/PROM, Strengthening, Scar Care, Triggerpoint Release, Orthoses, Joint Protection/Energy Conservation, Ergonomic Education Please do not hesitate to contact me at [phone] by phone or if you have questions or concerns regarding this new plan of care! Sincerely, Angelica Gordon, OTR/L, CHT
== END 2022-07-12 19:00 | disposition home or self-care (01) ==
LOC: OT 16:30
PROVIDERS: PCP Family Medicine
DX: G56.22 Lesion of ulnar nerve, left upper limb; Z47.89 Encounter for other orthopedic aftercare; S56.512D Strain of other extensor muscle, fascia and tendon at forearm level, left arm, subsequent encounter
CPT/HCPCS: 97035; 97110; 97140; 97166; 97530

== ENCOUNTER 2023-06-29 16:00 | Outpatient (RCR) | payer OTHER, BC, SELFPAY ==
--- NOTE | 2022-11-11 07:21 | HP.OTEVAL_ITS ---
Patient's Visit Information ARGELIA COPELAND is a 52 year old M, referred to Occupational Therapy by FAB HALL, with a diagnosis of Left recurrent LC. Date of Evaluation: 11/08/22 Occupational Therapist: Angelica Gordon, MAIA/[place], CHT - Subjective This 52 year old male was seen for OT eval with dx of partial tear of common extensor tendon of left elbow. Pt had ulnar nerve entrapment at left ulnar grove. Pt underwent sx on 03/01/22 a open left ulnar nerve release open left lateral ulnar collateral ligament repair and open common extensor tendon repair -( DOI 01/01/22) pt suffered re-injury date 05/28/22 ( returned to work on 10# lift restriction on 05/27/22 and re-tear on 05/28/22). pt underwent reconstruction repair on 10/06/22-after MRI showed full-thickness tearing of the collateral ligaments as well as tearing of the common extensor tendon. 10/06/21 left elbow lateral collateral ligament reconstruction using Palmaris Longus Autograft, internal bracing augmentation and left elbow radial head excision- pt arrives 4 weeks 5 days s/p. with long arm orthosis on. 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 pt is left handed and currently limited with ADLS and IADLS. - Pain left UE 2 Pain Intensity Range: 2, 8 - ROM Shoulder: right WNL left Elbow: right 0/135 left -40/ 95 Forearm: right supination 50 pronation WNL left supination -20 pronation 40 Wrist: right 70/60 left 40/30 Opposition: Kapandji opposition scale right 10 left 4 - Strength Micromatic Hone Operator: right 110# left NT Lateral Pinch: right 12# Left NT Tripod Pinch: right 8# left NT - Edema Elbow: right 37cm left 38cm Wrist: right 21cm left 24cm Other: mid forearm right 34cm left 36cm - Sensation Sensation Comments: distal wrist/ back of hand warm to touch compared to right. dorsal forearm cool to touch compared to right. denies tingling or numbness - Quick DASH-Disab of Arm,Shoulder& Hand Quick DASH Score: 76.6650 - Goals Goal:100% adherence to protocol: Yes Comment: Follow Dr. Hall guidelines Goal:Daily scar massage when approriate: Yes Goal:ROM equal to unaffected hand: Yes Goal:Micromatic Hone Operator/Pinch strength at least 75% of unaffected hand: Yes Goal:No pain with affected hand use: Yes Goal:Full use of affected hand in daily activities including: Yes Other Goal: pt will demo a reduction in edema of left hand/forearm by 3cm or greater by end of week 3. - Rehabilitation General Assessment: pt arrives 4 weeks 5 days s/p from left elbow lateral collateral ligament reconstruction using Palmaris Longus Autograft, internal bracing augmentation and left elbow radial head excision- pt demo newly healing structures and demo limited ROM, edema and pain decreasing IND. with ADLs and IADLs. pt would benefit from skilled OT services 2-3x week for 12 weeks to return pt to his PLOF. pt demo understanding and agrees to POC. Rehabilitation Potential: Good - Anticipated Interventions A/AAROM/PROM, Modalities, Orthoses, Joint Protection/Energy Conservation, Ergonomic Education - Visit Plan Frequency: 2-3x /Week Duration: 3 Months General Plan: edema control-. AROM TEXT: Thank you for the opportunity to evaluate your patient. For Medicare and Medicare HMO plans, please review the plan of care and approve it. It will need to be FAXED BACK to us at [phone] for Medicare purposes. Please let me know if there are questions or concerns regarding this plan of care. Physician Signature: Date:
--- NOTE | 2022-12-01 14:53 | HP.OTREVAL ---
FAB SULLIVAN, It has been my pleasure to treat ARGELIA COPELAND over the last 9 visits for Left recurrent LC. Please see the progress note below for an update on the occupational therapy plan of care! Subjective: pt arrives to OT 8 week and 1 days s/p rom left elbow lateral collateral ligament reconstruction using Palmaris Longus Autograft, internal bracing augmentation and left elbow radial head excision-. pt states he has orthosis on only when out of home and is unable to sleep in it-. pt does wear his compression sleeve and glove-. therapist advised use brace to allow for protection and support until releases from orthosis. Objective/Function: left elbow ROM -35/125 (-20/125 after AROM ex). a right gas golf cart repairer strength of 30#. right lateral pinch 12#. right tripod pinch 12#. left wrist ROM 35/30. left forearm supination 35* (right is 50*). pt continues to struggle with swelling elbow down- pts swelling is better in AM. Therapy is working on end range motion to make gains to increase pts ind. with ADLs as feeding, washing face and shaving head. Plan Frequency: 2-3x /Week Duration: 3 Months Plan: pt continue to work on AROM to gain end range motion- and When allow to initiate light strengthening Goals - Goals Patient Goals: Regain Mobility, Regain Strength, Decrease Swelling/Stiffness Goal:100% adherence to protocol: Yes Goal:Daily scar massage when approriate: Yes Goal:ROM equal to unaffected hand: Yes Goal:Geological Drafter/Pinch strength at least 75% of unaffected hand: Yes Goal:No pain with affected hand use: Yes Goal:Full use of affected hand in daily activities including: Yes Other Goal: pt will demo a reduction in edema of left hand/forearm by 3cm or greater by end of week 3. Anticipated Interventions Anticipated Interventions: A/AAROM/PROM, Modalities, Orthoses, Joint Protection/Energy Conservation, Ergonomic Education Please do not hesitate to contact me at [phone] by phone or if you have questions or concerns regarding this new plan of care! Sincerely, Angelica Gordon, OTR/L, CHT
--- NOTE | 2023-01-25 14:21 | OTREVAL_ITS ---
FAB SULLIVAN, It has been my pleasure to treat ARGELIA COPELAND over the last 12 visits for Left recurrent LC. Please see the progress note below for an update on the occupational therapy plan of care! Subjective: pt arrives 15 weeks and 5 days s/p from: left elbow lateral collateral ligament reconstruction using Palmaris Longus Autograft, internal bracing augmentation and left elbow radial head excision Pt states he feels he is at about 50% of ability. pt states he is able to reach the top of his head. But shaving his head he struggles with get the back of his neck. pt states swelling comes and goes. pt is happy with progress but understands reconstruction limits his lifting with left arm out. pt states driving does bother him as well depending on how long he is in his truck. Objective/Function: left elbow ROM -30/130 ( flexion is equal to right elbow flexion). left forearm sup 45* pronation WNL. left wrist 40/45. left sight effects specialist strength 55# (right is 100#). left lateral pinch 16#. left tripod pinch 12#. Pt is performing HEP ( AROM, PROM and PRE and transitioning to normal use of left UE.) pt is still causes on weight limit of 5# -7#. pt continues to demo left UE weakness vs unaffected side-. pt would continue to benefit from skilled OT services 2-3x week for 8 weeks. Plan Frequency: 2-3x /Week Duration: 2 Months Plan: cont. with PRE as tolerated or Dr. velarde. please advise on any therapy restrictions Goals - Goals Patient Goals: Regain Mobility, Regain Strength, Decrease Swelling/Stiffness Goal:100% adherence to protocol: Yes Goal:Daily scar massage when approriate: Yes Goal:ROM equal to unaffected hand: Yes Goal:Manager Printing/Pinch strength at least 75% of unaffected hand: Yes Goal:No pain with affected hand use: Yes Goal:Full use of affected hand in daily activities including: Yes Other Goal: pt will demo a reduction in edema of left hand/forearm by 3cm or greater by end of week 3. Anticipated Interventions Anticipated Interventions: A/AAROM/PROM, Modalities, Orthoses, Joint Protection/Energy Conservation, Ergonomic Education Please do not hesitate to contact me at [phone] by phone or if you have questions or concerns regarding this new plan of care! Sincerely, Angelica Gordon, OTR/L, CHT
--- NOTE | 2023-04-06 14:25 | HP.OTREVAL ---
Re-Evaluation Intro: FAB SULLIVAN, It has been my pleasure to treat ARGELIA COPELAND over the last 22 visits for Left recurrent LC. Please see the progress note below for an update on the occupational therapy plan of care! Subjective Subjective: Just woke up, hurting a lot more in last few weeks since he is out of the gabapentin. Objective Objective/Function: Pt has been seen for 22 skilled OT visits. Pt reports 20% progress this date and continues to be limited in daily tasks. Pt seen for measurements to document progress this date. Pt has demonstrated increased ROM in left UE. See the measurements list below. Pt is limited by pain and left forearm is warm compared to right forearm. Observed radial head movement when pt placing pressure at distal end of radius. Left Elbow ext/ flex Current -30/139 Prior -30/95 Left wrist ext/flex Current 40/60 Prior 40/45 Industrial Organizational Psychologist strength Left Current 65# (in supported position due to pain) Prior NT (eval) without pain 70# Right Current 115# Prior 110# (eval) Lateral Industrial Organizational Psychologist strength Left Current 23# Prior 28# (pain free) eval NT Right Current 23# Prior 12# Tripod Industrial Organizational Psychologist strength Left Current 18#, Prior 18# (pain free), eval NT Right Current 23# Prior 8# Left hand Kapandji opposition scale 10 elbow crease circumference 36cm prior 38cm left wrist 23.5cm and prior was 24cm Plan Plan Frequency: 2-3x /Week Duration: 2 Months Visits in this POC: C9 approval for 24 visits Plan: will cont as Dr. robins Goals Goals Patient Goals: Regain Mobility, Regain Strength and Decrease Swelling/Stiffness Goal:100% adherence to protocol: Yes Goal:Daily scar massage when approriate: Yes Goal:ROM equal to unaffected hand: Yes Goal:Industrial Organizational Psychologist/Pinch strength at least 75% of unaffected hand: Yes Goal:No pain with affected hand use: Yes Goal:Full use of affected hand in daily activities including work: Yes Other Goal: pt will demo a reduction in edema of left hand/forearm by 3cm or greater by end of week 3. Anticipated Interventions Anticipated Interventions Anticipated Interventions: A/AAROM/PROM, Modalities, Orthoses, Joint Protection/Energy Conservation and Ergonomic Education Re-Evaluation Ending Re-evaluation ending: Please do not hesitate to contact me at [phone] by phone or if you have questions or concerns regarding this new plan of care! Sincerely, Angelica Gordon, OTR/L, CHT
--- NOTE | 2023-04-13 16:58 | HP.OTREVAL ---
Re-Evaluation Intro: FAB SULLIVAN, It has been my pleasure to treat ARGELIA COPELAND over the last 24 visits for Left recurrent LC. Please see the progress note below for an update on the occupational therapy plan of care! 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 Objective Objective/Function: Hearing Aid Assembly Supervisor strength supported R 100# L 69# L elbow -22/129 elbow crease circumference 37cm prior 38cm left wrist 23 cm and prior was 24cm Left Current lateral 28#, eval NT Tripod Hearing Aid Assembly Supervisor strength Left Current 20#, eval NT Tolerate 30 min of a bilateral hand task prior to take a rest break Cutting with knife able to do but fatigues Discussed ergonomics and increasing activity level for increased endurance while performing tasks to decrease pain. pt will continue with HEP and increase wt as tolerated- pt to return to for nerve procedure. Plan Plan Frequency: 2-3x /Week Duration: 2 Months Visits in this POC: C9 approval for 24 visits Plan: Pt has attended all 24 visits always on time. Pt pain has limited progress throughout sessions. Pt will be getting nerve procedure done to decrease pain. pt agree to continue home program. Goals Goals Patient Goals: Regain Mobility, Regain Strength and Decrease Swelling/Stiffness Goal:100% adherence to protocol: Yes Goal:Daily scar massage when approriate: Yes Goal:ROM equal to unaffected hand: Yes Goal:Hearing Aid Assembly Supervisor/Pinch strength at least 75% of unaffected hand: Yes Goal:No pain with affected hand use: Yes Goal:Full use of affected hand in daily activities including work: Yes Other Goal: pt will demo a reduction in edema of left hand/forearm by 3cm or greater by end of week 3. Anticipated Interventions Anticipated Interventions Anticipated Interventions: A/AAROM/PROM, Modalities, Orthoses, Joint Protection/Energy Conservation and Ergonomic Education Re-Evaluation Ending Re-evaluation ending: Please do not hesitate to contact me at [phone] by phone or if you have questions or concerns regarding this new plan of care! Sincerely, Angelica Gordon, OTR/L, CHT
--- NOTE | 2023-07-15 10:49 | HP.OT.NRP ---
Patient Information Patient Information: ARGELIA COPELAND was seen in my office for initial evaluation on 11/08/22. The following Plan of Care was established for this patient: POC Established Plan: pt called and states DrGavin put him on hold from therapy- until he has sx on left UE. will D.c now as pt will have new POC after sx. Anticipated Interventions Anticipated Interventions: A/AAROM/PROM, Strengthening, Scar Care, Triggerpoint Release, Modalities, Orthoses, Joint Protection/Energy Conservation, Ergonomic Education, Education re assistive Equipment, Education re Diagnosis and Home Program Last Seen Last Seen: This patient was last seen in our office . Pertinent comments regarding their Occupational therapy will appear below: At this point I will be discontinuing this patient from occupational therapy. I would be happy to see this patient again in the future if found appropriate by the physician. Thank you! Angelica Gordon, OTR/L, CHT
== END 2023-06-29 19:00 | disposition home or self-care (01) ==
LOC: OT 16:00
PROVIDERS: PCP Family Medicine
DX: S56.512D Strain of other extensor muscle, fascia and tendon at forearm level, left arm, subsequent encounter (principal)
CPT/HCPCS: 97110; 97140; 97166; 97530

== ENCOUNTER 2023-09-22 12:20 | Day surgery (SDC) | payer BC, SELFPAY ==
--- NOTE | 2023-09-20 10:07 | EKG12_ITS ---
Test Reason : PRE OP Blood Pressure : / mmHG Vent. Rate : 084 BPM Atrial Rate : 084 BPM P-R Int : 178 ms QRS Dur : 104 ms QT Int : 396 ms P-R-T Axes : 044 059 002 degrees QTc Int : 467 ms Normal sinus rhythm Inferior infarct , age undetermined Abnormal ECG Confirmed by MAURI WOODALL, RUTH ([id number]), video effects editor PEPPER HARGROVE ([id number]) on 09/20/2023 1:04:45 PM Referred By: Christopher Montero Confirmed By:RUTH DOTSON MD
[2023-09-20 12:08] LABS: Hemoglobin 15.5 g/dL (13.0-16.5); Mean Corp Hgb Conc 34.4 g/dL (32-36); Mean Corpuscular Hgb 29.4 pg (27.0-32.0); Mean Corpuscular Volume 85.4 fL (80-94); Platelet Count 355 K/mm3 (150-450); RBC Distribution Width CV 13.3 % (11.6-14.6); RBC Distribution Width SD 41.1 fl (35.1-43.9); Red Blood Count 5.27 M/mm3 (4.6-6.2); White Blood Count 9.2 K/mm3 (4.4-11.0)
[2023-09-20 12:52] LABS: Anion Gap 8 (5-15); BUN 16 mg/dL (7-18); BUN/Creat Ratio 14.7 RATIO (10-20); Calcium,Total 9.2 mg/dL (8.5-10.1); Chloride 106 mmol/L (98-107); Creatinine, Serum 1.09 mg/dL (0.70-1.30); EST Glomerular Filtration Rate 75 mL/min (>60); Est Glom Filt Rate - Afr Amer 91 mL/min (>60); Glucose 132 mg/dL (74-106); Potassium 3.6 mmol/L (3.5-5.1); Sodium Level 139 mmol/L (136-145)
[2023-09-22] VITALS (8 sets, daily range): BP systolic 109–143; BP diastolic 68–89; PULSE 71–81; RESP 16–18; TEMP 36.4–36.9; O2SAT 91–96; BMI 48.3
--- OUTSIDE RECORDS SUMMARY | 2023-09-22 12:41 | XMS RPT_ITS | CCD ---
Author Name Unknown Address [address] [place] [address] Organization [facility] Results Test Name Value Interpretation Reference Range Facil ity Encounters Encounter Date Encounter Type Care Provider Facility Start: 01-11-2022 End: 01-11-2022 Patient encounter procedure ROBERT BENITES MD [facility] Social History Date Type Detail Facility Tobacco smoking status [facility] Sex Assigned At Male [facility] Evaluation + Plan note Note Date & Type Note Facility Evaluation + Plan note No data available for this section [facility] Discharge instructions Note Date & Type Note Facility Hospital Discharge instructions No data available for this section [facility] Progress note Note Date & Type Note Facility Progress note No data available for this section [facility] Summary Purpose Family History No Family History Records FoundNo Family History Records Found Advance Directives No Advanced Directives Records FoundNo Advanced Directives Records Found Additional Source Comments (unrecognized sect ion and content) No Status Records FoundNo Status Records Found INFORMATION SOURCE (unrecogn ized section and content) DATE CREATED AUTHOR AUTHOR'S DIONNA JOHNSON 03/11/2022 [facility] ([place]) FOR RECORDS PERTAINING TO PATIENTS WHO ARE OR HAVE BEEN ENROLLED IN A CHEMICAL DEPENDENCY/SUBSTANCEABUSE PROGRAM, SOME INFORMATION MAY BE OMITTED. This clinical summary was aggregated from multiple sources. Caution should be exercised in using it in the provision of clinical care. This summary normalizes information from multiple sources, and as a consequence, information in this document may materially change the coding, format and clinical context of patient data. In addition, data may be omitted in some cases. CLINICAL DECISIONS SHOULD BE BASED ON THE PRIMARY CLINICAL RECORDS. [facility]. provides no warranty or guarantee of the accuracy or completeness of information in this document.
--- NOTE | 2023-09-22 13:02 | PCM.HP.BLA ---
History and Physical Date of Admission: 09/22/23 Intake Vital Signs 08/08/2313:10 09/12/2413:05 Height 6 ft 4 in 6 ft 4 in Weight: 397 lb 392 lb 8 oz BMI 48.3 47.7 BP 139/85 H 147/90 H Blood Pressure Location Lt brachial Rt brachial Position Sitting Sitting Respiration 16 18 Pulse 107 H 81 Pulse Source Monitor Monitor Temp 100.0 F H 97.4 F L Temp Source Temporal Temporal Pulse Oximetry (%) 96 95 Oxygen Delivery Method room air room air Intake Visit Reasons: Umbilical Hernia Chief Complaint: umbilical hernia Operational Intelligence Analyst Required: No Is patient in pain?: No Allergies bee venom protein (honey bee) Allergy (Verified 09/12/23 14:06) Swellingatorvastatin Adverse Reaction (Severe, Verified 09/12/23 14:06) Myalgiascephalexin [From Keflex] Adverse Reaction (Verified 09/12/23 14:06) GIVES ME THE JITTERS shellfish derived Adverse Reaction (Verified 09/12/23 14:06) Nausea/Vom/Diarrhea Medications aspirin 325 mg tablet 325 mg PO DAILY@0800 11/09/18 [History Confirmed 09/12/23] chlorthalidone 25 mg tablet 25 mg PO DAILY 10/27/20 [History Confirmed 09/12/23] metoprolol tartrate 25 mg tablet 25 mg PO BID 10/27/20 [History Confirmed 09/12/23] multivitamin 1 tab PO DAILY 03/27/21 [History Confirmed 09/12/23] glucosamine HCl 1,500 mg tablet 1,500 mg PO DAILY 08/17/21 [History Confirmed 09/12/23] hydroxyzine HCl 50 mg tablet 100 mg PO QHS 08/17/21 [History Confirmed 09/12/23] nortriptyline 50 mg capsule 100 mg PO QHS 08/17/21 [History Confirmed 09/12/23] losartan 100 mg tablet 100 mg PO DAILY 11/17/21 [History Confirmed 09/12/23] amlodipine 10 mg tablet (Norvasc) 10 mg PO DAILY 09/12/23 [History Confirmed 09/12/23] calcium carb-Ca gluc 500 mg calcium-magnesium ox-Mg gluc 250 mg tablet (Calcium Magnesium) 2 tab PO DAILY 09/12/23 [History Confirmed 09/12/23] cyclobenzaprine 10 mg tablet 10 mg PO TID 09/12/23 [History Confirmed 09/12/23] duloxetine 30 mg capsule,delayed release (Cymbalta) 30 mg PO DAILY 09/12/23 [History Confirmed 09/12/23] potassium chloride 20 mEq tablet,extended release 20 meq PO DAILY 09/12/23 [History Confirmed 09/12/23] [facility] Medical History (Updated 09/12/23 @ 14:[address] Christopher Montero MD) Anxiety Atherosclerotic heart disease of resighini coronary artery without angina pectoris Back pain Chronic pain Depression Edema Essential hypertension Family history of ischemic heart disease Former smoker History of lateral wall myocardial infarction (07/22/09) History of steroid therapy HLD (hyperlipidemia) HTN (hypertension) Hx of echocardiogram Morbid obesity with BMI of 40.0-44.9, adult Myocardial infarct right elbow surgery Shortness of breath on exertion Tobacco use disorder Umbilical hernia Wears contact lenses Surgical History (Updated 09/12/23 @ 14:04 by Joan Duncan) History of dental surgery History of surgery on arm Stented coronary artery (07/22/09) Family History Father , Age 57 of [place], had VA/CAD at age 39 CAD (coronary artery disease) Myocardial infarctionMother HypertensionSister Hypertension Social History household members: other details: mother housing: house current occupational status: employed 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 He says it is bothering him especially if he bends over. He said when he lifts things for a long time he has pain in the area. He is not able to reduce it. He denies nausea or vomiting or fevers or chills. ROS General General: Yes weight change; No appetite, fatigue, colon cancer, breast cancer or weakness HEENT HEENT: No difficulty swallowing, eye injury, eye surgery, swollen glands or hoarseness Endo Endocrine: No thyroid disease, diabetes mellitus, thyroid cancer, Hair loss, heat intolerance or cold intolerance Skin Skin: No rash or changing moles Breast Breast: No left breast lump, right breast lump, nipple discharge, breast pain, abnormal mammogram, abnormal US or breast enlargement Musc Musculoskeletal: Yes back problems and arthritis; No rheumatoid arthritis, gout or joint pain Cardio Cardiovascular: Yes heart disease, high blood pressure, heart attack and heart stent; No murmur, pacemaker, atrial fibrillation, palpitations, shortness of breat with exertion or chest pain Psych Psychiatric: Yes depression and anxiety; No hearing voices Resp Respiratory: No shortness of breath, No sleep apnea, No cough, No COPD, No asthma, No emphysema and No wheezing Gastro Gastrointestinal: Yes abdominal pain, No nausea or vomiting, No diarrhea, No constipation, No blood in stool, No acid reflux, No hemorrhoids, No ulcers, No gallbladder problem and No black,tarry stools Rashid Hematologic: No blood thinners, No blood disorders, No bleeding, No anemia and No blood clots Additional Details: Daily full strength aspirin Neuro Neurologic: No system reviewed and no additional complaints, except as documented, No as per HPI, No abnormal gait, No abnormal hearing, No abnormal movements, No abnormal speech, No behavioral changes, No burning sensations, No confusion, No convulsions, No disequilibrium, No dizziness, No localized weakness, No frequent falls, No headache(s), No lack of coordination, No loss of vision, No memory loss, No numbness, No other visual disturbances, No radicular pain, No restless legs, No sensory deficit, No syncope, No tingling, No tremor(s), No weakness and No other Assessment and Plan Assessment and Plan (1) Morbid obesity with BMI of 40.0-44.9, adult: Status: Chronic (2) Umbilical hernia: Status: Acute Qualifiers: Obstruction and gangrene presence: without obstruction or gangrene Qualified Code(s): K42.9 - Umbilical hernia without obstruction or gangrene Plan The patient has an umbilical hernia. I discussed umbilical hernia repair with mesh. I discussed surgery as well as the postoperative care and risks. I discussed the risks of bleeding, infection, injury to underlying organs such as the bowel or omentum. Patient understands the risks and is willing to proceed with mesh placement as well. Christopher Montero MD Pager: [facility] [address] [place] [address] [address] [place] [phone] Office: I have examined the patient and the H&P has been reviewed. There are no clinical changes since date of exam.
[2023-09-22] MEDS: Lactated Ringers 1,000 ML 15 ML IV (13:25)
[2023-09-22] MEDS: Cefazolin 2 GM in 0.9% Normal Saline (100mL Bag) 100 ML IV (14:25)
[2023-09-22] MEDS: Bupivacaine Mpf 0.5% 30 ML VIAL (14:30)
--- NOTE | 2023-09-22 15:07 | PCM.OPRPT ---
Report of Operation Date of Procedure: 09/22/23 Pre-Operative Diagnosis: Umbilical hernia Post-Operative Diagnosis: Umbilical hernia less than 3 cm Surgery/Procedure Performed:: Umbilical hernia repair with mesh Type of Anesthesia: General/Regional Specimen's removed: None Estimated Blood Loss (mL): 5 Description of Procedure: Patient was brought back to the operating room and general anesthesia was induced. The abdomen was prepped and draped in usual sterile fashion. A curvilinear incision was marked inferior to the umbilicus and then injected with local anesthetic. Incision was made with a scalpel and the umbilical stalk was taken off of the hernia using electrocautery. The hernia contents were reduced and the fascia was grasped with a Onel and elevated. Circumferentially the preperitoneal tissue was taken down using electrocautery dissection. Once there was no free peritoneal space a small Ventralex mesh was placed into the preperitoneal space. It was sutured to the anterior fascia using 2-0 PDS suture. It was irrigated and suctioned dry and then the fascia was closed with interrupted 0 Nurolon sutures. Subcutaneous tissue was irrigated and suctioned dry. The skin was reapproximated with interrupted 3-0 Vicryl sutures and a running 4-0 Monocryl. Steri-Strips and bandages were applied. Patient was awoken and taken to PACU in stable condition. Grafts/Implants Used: Small Ventralex ST mesh Admit VTE Documentation VTE Mechan Device Prophylaxis: SCD's
--- NOTE | 2023-09-22 15:09 | DCINST_ITS ---
Discharge Instructions Diet Discharge Diet: Light diet - advance as tolerated Activity Discharge Activity: May Drive (In 2 to 3 days and once off narcotics) and May Shower (Over bandage tomorrow) Lifting Restrictions: 15 pounds for 4 weeks Dressing / Incision Call your doctor if your incision/area has: Continuous Slow Oozing, Sudden Increased Bleeding, Increased Pain/ Swelling, Increased Redness, Foul Smelling Discharge and Swelling at the incision site Call your doctor if you observe: Fever of 101 or Higher Remove Dressing in: 3 days (Remove clear dressing in 3 days, remove Steri-Strips in 7 to 10 days.) Follow Up Care Please Follow Up With: Christopher Montero MD When: Please call to schedule 2 week follow up appointment. [phone] Test Results: Test results from this visit will be discussed in further detail at your follow- up appointment, if applicable. Discharge Plan Admission Attending Provider: Christopher Montero Primary Care Provider: Eric Odom Instructions Additional Instructions / Restrictions: Alternate ibuprofen and Tylenol for pain, oxycodone for breakthrough, resume aspirin Tuesday Discharge Orders/Prescriptions Prescriptions: New oxycodone 5 mg tablet 5 - 10 mg PO Q6H PRN (Reason: pain) 5 Days Qty: 15 0RF No Action chlorthalidone 25 mg tablet 25 mg PO DAILY Patient Comments: TAKE 1 TABLET BY MOUTH EVERY DAY metoprolol tartrate 25 mg tablet 25 mg PO BID Patient Comments: TAKE 1 TABLET BY MOUTH TWICE A DAY hydroxyzine HCl 50 mg tablet 100 mg PO QHS nortriptyline 50 mg capsule 100 mg PO QHS Patient Comments: TAKE 1 CAPSULE BY MOUTH EVERYDAY AT BEDTIME glucosamine HCl 1,500 mg tablet 1,000 mg PO DAILY Rx Instructions: administer with a meal losartan 100 mg tablet 100 mg PO DAILY duloxetine [Cymbalta] 30 mg capsule,delayed release(DR/EC) 30 mg PO DAILY amlodipine [Norvasc] 10 mg tablet 10 mg PO DAILY aspirin 325 MG tablet 325 mg PO DAILY@0800 multivitamin Tablet 1 tab PO DAILY ashwagandha root extract 500 mg capsule 1,300 mg PO DAILY magnesium 200 mg tablet 400 mg PO DAILY Referrals / Follow Up: Eric Odom MD [Primary Care Provider] - Disposition Disposition (needs filled in before D/C Order can be placed): Home, Self Care
[2023-09-22] MEDS: oxyCODONE 5 MG Tablet PO (15:52)
[2023-09-22] MEDS: Acetaminophen 325 MG Tablet 650 MG PO (15:53)
== END 2023-09-22 16:31 | disposition home or self-care (01) ==
LOC: SDC 12:22 → AC 12:23
PROVIDERS: Anesthesiology; PCP Family Medicine; Referring Provider Surgery; Visit Provider Surgery
PROC: (CPT 49591; principal; 2023-09-22 14:10)
DX: K42.9 Umbilical hernia without obstruction or gangrene (principal); E66.01 Morbid (severe) obesity due to excess calories; Z68.42 Body mass index [BMI] 45.0-49.9, adult; I10 Essential (primary) hypertension; I25.10 Atherosclerotic heart disease of native coronary artery without angina pectoris; I25.2 Old myocardial infarction; F32.A Depression, unspecified; F41.9 Anxiety disorder, unspecified; Z79.899 Other long term (current) drug therapy; Z87.891 Personal history of nicotine dependence
CPT/HCPCS: 49591; 00830; 36415; 80048; 85027; 93005; J7120; C1781; J2405

== ENCOUNTER → 2023-11-04 | Outpatient (CLI) | payer BC, SELFPAY ==
[2023-11-04 16:06] LABS: Hemoglobin A1c 6.2 % (3.8-5.6)
[2023-11-04 16:21] LABS: Anion Gap 8 (5-15); BUN 16 mg/dL (7-18); BUN/Creat Ratio 15.7 RATIO (10-20); Chloride 104 mmol/L (98-107); Cholesterol 232 mg/dL (200); Creatinine, Serum 1.02 mg/dL (0.70-1.30); EST Glomerular Filtration Rate 81 mL/min (>60); Est Glom Filt Rate - Afr Amer 98 mL/min (>60); Glucose 114 mg/dL (74-106); High Density Lipoprotein 39 mg/dL; Potassium 3.5 mmol/L (3.5-5.1); Sodium Level 137 mmol/L (136-145); Thyroid Stim Hormone (TSH) 1.63 uIU/mL (0.358-3.74); Triglycerides 239 mg/dL; Very Low Density Lipoprotein 48 mg/dL (5-40)
== END | disposition home or self-care (01) ==
LOC: MFPLAB 11:50
PROVIDERS: PCP Family Medicine; Visit Provider Family Medicine
DX: I10 Essential (primary) hypertension (principal); E66.9 Obesity, unspecified; R73.9 Hyperglycemia, unspecified
CPT/HCPCS: 36415; 80048; 80061; 83036; 84443

== ENCOUNTER 2024-03-15 08:30 | Outpatient (RCR) | payer OTHER, BC, SELFPAY ==
--- NOTE | 2023-11-10 18:21 | HP.OTEVAL_ITS ---
Patient's Visit Information Visit Information Visit Information: ARGELIA COPELAND is a 53 year old M, referred to Occupational Therapy by Dr. Blaine Hall MD, with a diagnosis of open L radial tunnel release. Date of Evaluation: 11/10/23 Occupational Therapist: Kelley Tyler Subjective Subjective: This 53 year old male referred to OT s/p radial tunnel release LUE Oct 12 2023. pt also with completion of L wrist carpal tunnel release oct 12 2023. prior to this 11/08/22 pt seen for common extensor tendon L elbow partial tear. 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 pt now presents to OT due to weakness of LUE noted during radiologic technology instructor as well as pronation movements. Pt is L hand dominant and completes heavy lifting daily for work requiring pt to be able to perform heavy grasping as well as supinated movements. Pain LUE: Current Pain Intensity: 0 Objective Objective/Observation: pt with scar along L lateral epicondyle dry skin noted. pt reports he has self made a splint for his carpal tunnel sx made from leather that he has been wearing. ROM Shoulder: wfl Elbow: L 20/130 R wfl Forearm: L pronation wfl supination 35 degrees R wfl Wrist: L 30/50 R wfl CMC: wfl MP: wfl IP: wfl Radial Abduction: wfl Palmar Abduction: wfl MP: wfl PIP: wfl DIP: wfl ROM Comments: L UE with decreased elbow extension as well as forearm supination Strength Shoulder: L 31 R 25 Elbow: L flex 22 R flex 34 L ext 55 R ext 71 Forearm: L pro 42 sup 41 R pro 41 sup 40 Wrist: L ext 31 R ext 35 Electric Meter Installer Helper: L 70 R110 Lateral Pinch: L 20 R 20 Tripod Pinch: L 15 R15 Strength Comments: decreased radiologic technology instructor strength of LUE Sensation Sensation Comments: no reports of numbness or tingling no burning during eval Quick DASH-Disab of Arm,Shoulder& Hand Quick DASH Score: 20.0000 Goals Goal:: pt will increase L hand radiologic technology instructor strength to 100 pounds by discharge Goal:: pt will increase L forearm pronation by 15 degrees by discharge Goal:: pt will demonstrate 100% accuracy in LUE joint protection and positioning during daily tasks/ hobbies and work related tasks by 3rd session Goal:: pt will increase quick dash score by 3 points by discharge Rehabilitation General Assessment: pt is L hand dominant and demonstrating weakness in radiologic technology instructor as well as supination strength. pt does not report any pain or sensation issues Rehabilitation Potential: Good Anticipated Interventions Anticipated Interventions: Strengthening, Scar Care, Massage, Joint Protection/Energy Conservation, Ergonomic Education and Home Program Visit Plan Frequency: 2x /Week Duration: 4 Weeks General Plan: OT plan to re gain L UE strength in prep for return to work. TEXT: Thank you for the opportunity to evaluate your patient. For Medicare and Medicare HMO plans, please review the plan of care and approve it. It will need to be FAXED BACK to us at [phone] for Medicare purposes. Please let me know if there are questions or concerns regarding this plan of care. Physician Signature: Date:
--- NOTE | 2023-12-15 17:40 | HP.OTREVAL ---
Re-Evaluation Intro: Dr. Blaine Hall MD, It has been my pleasure to treat ARGELIA COPELAND over the last 10 visits for open L radial tunnel release. Please see the progress note below for an update on the occupational therapy plan of care! Subjective Subjective: arrives this date doing well no new complaints Objective Objective/Function: elbow of LUE -15/125 forearm supination 60 degrees groundskeeping maintenance strength L 75 pounds R 110 pounds L lateral 15 pounds R lateral 15 pounds L tripod pinch 15 pounds R tripod pinch 15 pounds Plan Plan Frequency: 2x /Week Duration: 3 Weeks Visits in this POC: 16 Plan: cont to strengthen as tolerate Dr has cleared for 25#of lift Goals Goals Patient Goals: Regain Strength, Return to Work, Decrease Swelling/Stiffness, Use Hand/Wrist/Arm Normally Again, Increase ROM and Resume Hobbies Goal:: pt will increase L hand groundskeeping maintenance strength to 100 pounds by discharge -- currently 75 pounds ongoing Goal:: pt will increase L forearm pronation by 15 degrees by discharge ongoing pt will improve L forearm supination to 70-75 degrees within 3 weeks currently 60 degrees Goal:: pt will demonstrate 100% accuracy in LUE joint protection and positioning during daily tasks/ hobbies and work related tasks by 3rd session goal met Goal:: pt will increase quick dash score by 3 points by discharge quick dash score this date 25.0 Anticipated Interventions Anticipated Interventions Anticipated Interventions: Strengthening, Scar Care, Massage, Joint Protection/Energy Conservation, Ergonomic Education and Home Program Re-Evaluation Ending Re-evaluation ending: Please do not hesitate to contact me at [phone] by phone or if you have questions or concerns regarding this new plan of care! Sincerely, Kelley Tyler
--- NOTE | 2023-12-27 14:00 | OTREVAL_ITS ---
Re-Evaluation Intro: Dr. Blaine Hall MD, It has been my pleasure to treat ARGELIA COPELAND over the last 13 visits for open L radial tunnel release. Please see the progress note below for an update on the occupational therapy plan of care! Subjective Subjective: pt arrives to session 10 weeks and 6 days from radial nerve release of left dorsal forearm. Pt is happy his pain is gone but feels he has some limitations of muscle fatigue with lifting/ grasping tasks. Objective Objective/Function: pt states he does continue with his end rage stretching of his left elbow in hopes to continue to make gains with his ROM. ( extension) pt is progressing with his strength but continues to feel left forearm fatigue with use. Pt is left hand dominate states he needs to stop and rest as needed but has concerns when he returns to work that resting will not be an option. left elbow ROM -25/135 ( this is a decrease of 10 loss from prior measurements. left forearm supination 60* right is 65* pts Pronation is WNL. left contractor buyer strength 80# increase from 75# ight 115# left lateral pinch 30# increase from 15# left tripod pinch 24# increase from 15# pt making gains and consistent with attending and participating with therapy. please re-eval and advise as needed. Plan Plan Plan: pt to return to for further assessment. Goals Goals Patient Goals: Regain Strength, Return to Work, Decrease Swelling/Stiffness, Use Hand/Wrist/Arm Normally Again, Increase ROM and Resume Hobbies Goal:: pt will increase L hand contractor buyer strength to 100 pounds by discharge -- currently 75 pounds ongoing Goal:: pt will increase L forearm pronation by 15 degrees by discharge ongoing pt will improve L forearm supination to 70-75 degrees within 3 weeks currently 60 degrees Goal:: pt will demonstrate 100% accuracy in LUE joint protection and positioning during daily tasks/ hobbies and work related tasks by 3rd session goal met Goal:: pt will increase quick dash score by 3 points by discharge quick dash score this date 25.0 Anticipated Interventions Anticipated Interventions Anticipated Interventions: Strengthening, Scar Care, Massage, Joint Protection/Energy Conservation, Ergonomic Education and Home Program Re-Evaluation Ending Re-evaluation ending: Please do not hesitate to contact me at [phone] by phone or if you have questions or concerns regarding this new plan of care! Sincerely, Angelica Gordon, OTR/L, CHT
--- NOTE | 2024-02-09 11:32 | HP.OTREVAL ---
Re-Evaluation Intro: Dr. Blaine Hall MD, It has been my pleasure to treat ARGELIA COPELAND over the last 6 visits for open L radial tunnel release. Please see the progress note below for an update on the occupational therapy plan of care! Subjective Subjective: doing well sore from the other day Objective Objective/Function: pt needs occ rest breaks tolerance increasing. able to perform bike at resistance 4 duration 10 min 5 min forard 5 min backward. 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 strength to 100 pounds by discharge -- currently 75 pounds ongoing Goal:: pt will increase L forearm pronation by 15 degrees by discharge ongoing pt will improve L forearm supination to 70-75 degrees within 3 weeks currently 60 degrees Goal:: pt will demonstrate 100% accuracy in LUE joint protection and positioning during daily tasks/ hobbies and work related tasks by 3rd session goal met Goal:: pt will increase quick dash score by 3 points by discharge quick dash score this date 25.0 Anticipated Interventions Anticipated Interventions Anticipated Interventions: Strengthening, Scar Care, Massage, Joint Protection/Energy Conservation, Ergonomic Education and Home Program Re-Evaluation Ending Re-evaluation ending: Please do not hesitate to contact me at [phone] by phone or if you have questions or concerns regarding this new plan of care! Sincerely, Kelley Tyler
--- NOTE | 2024-03-15 09:23 | OTREVAL_ITS ---
Re-Evaluation Intro: Dr. Blaine Hall MD, It has been my pleasure to treat ARGELIA COPELAND over the last 15 visits for open L radial tunnel release. Please see the progress note below for an update on the occupational therapy plan of care! Subjective Subjective: Pt doing well no new concerns. progress report complete and exercise log scanned in for Dr appointment this date Objective Objective/Function: sci fit bike resistance 4 duration 14 min BTE see BTE log Pot Holder Binder strength elbow at 90 80# elbow extended 90# been participating in work condition 60 min supervised work simulated activity then additional 60 min unsupervised gym equipment in which exercise log is provided see attachment. Plan Plan Frequency: 2x /Week Duration: 3 Weeks Visits in this POC: 3-5x week for 4 weeks Plan: Dr appointment this date for re check Goals Goals Patient Goals: Regain Strength, Return to Work, Decrease Swelling/Stiffness, Use Hand/Wrist/Arm Normally Again, Increase ROM and Resume Hobbies Goal:: pt will increase L hand liquid yeast supervisor strength to 100 pounds by discharge -- 80 pounds elbow at 90 from previous 75 90 pounds elbow extended ongoing Goal:: pt will increase L forearm pronation by 15 degrees by discharge GOAL MET pt will improve L forearm supination to 70-75 degrees within 3 weeks 65 degrees ongoing from 60 Goal:: pt will demonstrate 100% accuracy in LUE joint protection and positioning during daily tasks/ hobbies and work related tasks by 3rd session GOAL MET Goal:: pt will increase quick dash score by 3 points by discharge quick dash score this date 25.0 now 9.09 GOAL MET Anticipated Interventions Anticipated Interventions Anticipated Interventions: Strengthening, Scar Care, Massage, Joint Protection/Energy Conservation, Ergonomic Education and Home Program Re-Evaluation Ending Re-evaluation ending: Please do not hesitate to contact me at [phone] by phone or if you have questions or concerns regarding this new plan of care! Sincerely, Kelley Tyler
--- NOTE | 2024-03-27 10:54 | HP.OT.NRP ---
Patient Information Patient Information: ARGELIA COPELAND was seen in my office for initial evaluation on 11/10/23. The following Plan of Care was established for this patient: POC Established Initial Frequency: 2x /Week Initial Duration: 3 Weeks Plan: Dr appointment this date for re check Anticipated Interventions Anticipated Interventions: Strengthening, Scar Care, Massage, Joint Protection/Energy Conservation, Ergonomic Education and Home Program Last Seen Last Seen: This patient was last seen in our office 03/15/24. Pertinent comments regarding their Occupational therapy will appear below: This 54 year old male was seen for OT beginning 11/10/23 for open L radial tunnel release 10/12/23 as well as L carpal tunnel release 10/12/23. pt participated in therapy sessions and began a work conditioning program. pt made gains in ROM as well as strength throughout POC in prep for return to work. discharge at this time as pt returned to doctor since last appointment 03/15/24 and has cancelled remainder of appointments at this time. At this point I will be discontinuing this patient from occupational therapy. I would be happy to see this patient again in the future if found appropriate by the physician. Thank you! Kelley Tyler
== END 2024-03-15 19:00 | disposition home or self-care (01) ==
LOC: OT 08:30
PROVIDERS: PCP Family Medicine; Referring Provider Orthopaedic Surgery; Visit Provider Orthopaedic Surgery
DX: G56.32 Lesion of radial nerve, left upper limb (principal)
CPT/HCPCS: 97110; 97166; 97530; 97546

== ENCOUNTER 2024-12-13 08:22 | Emergency (ER) | payer MEDICAID, SELFPAY ==
[2024-12-13 08:22] VITALS: BP 185/95; PULSE 69; RESP 18; TEMP 36.7; O2SAT 97; BMI 47.9
--- NOTE | 2024-12-13 09:07 | EX.ED.DYSGE1 ---
HPI History of Present Illness Chief Complaint: Wound Narrative Narrative: Chief complaint and HPI: Right first toe blister. 54-year-old male with past medical history of CAD, HTN, HLD, lumbar radiculopathy presents for evaluation of right first toe blister. Patient states that he recently bought new work boots. He states since wearing them the past several days he has developed blisters on his feet. He developed blisters to the bilateral first toes as well as the right heel. He states yesterday evening the blister on his right first toe broke open with clear drainage. He states it is mildly swollen. He is concerned that it may be infected which is why he presents today. He denies any fever, chills, nausea, vomiting. Denies any significant pain where the blisters are located. Not diabetic. Review of systems: See HPI Medications: As listed on the chart Allergies: As listed on the chart PFSH: Per chart Vital signs: As listed on the chart. Reviewed. Physical exam: Gen: A&O x3, NAD Head: Normocephalic, atraumatic Eyes: No sclera icterus, conjunctiva clear ENT: Moist mucous membranes CV: Regular rhythm Resp: Nonlabored respiration Musc: Full ROM, no deformity, patient has a 1.5 x 1 cm open blister to the medial aspect of the right great toe. There is some mild clear drainage without purulence. There is mild swelling and erythema. No warmth, no crepitus, no lymphatic streaking. Nontender to palpation except at the open skin. No swelling or tenderness of the other toes, foot, calf. There is another intact blister on the right heel. There is an intact blister on the left great toe. Good capillary refill. DP/PT pulse plus 2 out of 4. Skin: Warm, dry Neuro: Alert, oriented, grossly intact, sensation intact Psych: Cooperative, appropriate mood and affect [facility] Medical History Wears glasses Cancer Arthritis History of Holter monitoring Normal stress echocardiogram History of stress test Hypertension Cardiology follow-up encounter Anxiety Umbilical hernia Essential hypertension Wears contact lenses Depression History of steroid therapy Chronic pain Shortness of breath on exertion Former smoker Edema Myocardial infarct Hx of echocardiogram Back pain right elbow surgery History of lateral wall myocardial infarction (07/22/09) Atherosclerotic heart disease of [place] coronary artery without angina pectoris HTN (hypertension) Morbid obesity with BMI of 40.0-44.9, adult Tobacco use disorder HLD (hyperlipidemia) Family history of ischemic heart disease Home Medications ?Medication ?Instructions ?Recorded ?Last Taken ?Type aspirin 325 mg tablet 325 mg PO DAILY@0800 11/09/18 09/15/23 History chlorthalidone 25 mg tablet 25 mg PO DAILY 10/27/20 01/02/21 10:00 History metoprolol tartrate 25 mg tablet 25 mg PO BID 10/27/20 09/22/23 History multivitamin 1 tab PO DAILY 03/27/21 Unknown History glucosamine HCl 1,500 mg tablet 1,000 mg PO DAILY 08/17/21 Unknown History hydroxyzine HCl 50 mg tablet 100 mg PO QHS 08/17/21 Unknown History nortriptyline 50 mg capsule 100 mg PO QHS 08/17/21 Unknown History losartan 100 mg tablet 100 mg PO DAILY 11/17/21 09/22/23 History amlodipine 10 mg tablet (Norvasc) 10 mg PO DAILY 09/12/23 09/22/23 History duloxetine 30 mg capsule,delayed 30 mg PO DAILY 09/12/23 Unknown History release (Cymbalta) ashwagandha root extract 500 mg 1,300 mg PO DAILY 09/16/23 Unknown History capsule magnesium 200 mg tablet 400 mg PO DAILY 09/16/23 Unknown History oxycodone 5 mg tablet 5 - 10 mg (1 - 2 x 5 mg) PO Q6H 09/22/23 Unknown Rx PRN pain 5 days #15 tabs Allergy/AdvReac Type Severity Reaction Status Date / Time bee venom protein (honey bee) Allergy Swelling Verified 12/13/24 08:22 atorvastatin AdvReac Severe Myalgias Verified 12/13/24 08:22 cephalexin (From Keflex) AdvReac GIVES ME Verified 12/13/24 08:22 [employer] shellfish derived AdvReac Nausea/Vom/ Verified 12/13/24 08:22 Diarrhea Family History Father , Age 57 of [place], had CA/CAD at age 39 CAD (coronary artery disease) Myocardial infarction Mother Hypertension Sister Hypertension Surgical History S/P umbilical hernia repair, follow-up exam Hx of surgical procedure History of surgery on arm History of dental surgery Stented coronary artery (07/22/09) Social History household members: other details: mother housing: house current occupational status: employed 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[employer] 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: Former smoker pack-years: 20 alcohol intake: never do you feel safe at home: Yes EXAM Physical Exam Const Vital Signs: 12/13/24 08:22 Temperature 98.0 F Temperature Source Oral Pulse Rate 69 Respiratory Rate 18 Blood Pressure 185/95 H Blood Pressure Mean 125 Pulse Ox 97 Oxygen Delivery Method Room Air MDM MDM MDM Narrative Medical decision making narrative: 54-year-old male with past medical history of CAD, HTN, HLD, lumbar radiculopathy presents for evaluation of right first toe blister. Blisters developed after obtaining boots. See physical exam findings. Differential diagnosis includes but is not limited to normal wound healing, cellulitis, osteomyelitis. Physical exam is not consistent with osteomyelitis. Suspect either normal wound healing versus early cellulitis. Patient not having any systemic symptoms. I do not think any laboratory workup or imaging is needed. Bacitracin was applied to the wound and wound was dressed. Patient was educated not to wear the work boots. When lying at home open area to air. Monitor for worsening signs and symptoms. Follow-up with PCP and podiatry. Will start him on prophylactic antibiotics to prevent infection/treat early cellulitis. He confirmed understanding. Patient stable to discharge home. Impression: 1. Right great toe blister Discharge Plan Triage Chief Complaint: Wound ED Provider: Wero Santiago Dx/Rx/DC Orders Prescriptions: No Action chlorthalidone 25 mg tablet 25 mg PO DAILY Patient Comments: TAKE 1 TABLET BY MOUTH EVERY DAY metoprolol tartrate 25 mg tablet 25 mg PO BID Patient Comments: TAKE 1 TABLET BY MOUTH TWICE A DAY hydroxyzine HCl 50 mg tablet 100 mg PO QHS nortriptyline 50 mg capsule 100 mg PO QHS Patient Comments: TAKE 1 CAPSULE BY MOUTH EVERYDAY AT BEDTIME glucosamine HCl 1,500 mg tablet 1,000 mg PO DAILY Rx Instructions: administer with a meal losartan 100 mg tablet 100 mg PO DAILY duloxetine [Cymbalta] 30 mg capsule,delayed release(DR/EC) 30 mg PO DAILY amlodipine [Norvasc] 10 mg tablet 10 mg PO DAILY aspirin 325 MG tablet 325 mg PO DAILY@0800 multivitamin Tablet 1 tab PO DAILY ashwagandha root extract 500 mg capsule 1,300 mg PO DAILY magnesium 200 mg tablet 400 mg PO DAILY oxycodone 5 mg tablet 5 - 10 mg PO Q6H PRN (Reason: pain) 5 Days Qty: 15 0RF Primary Care Provider: Eric Odom Referrals: Eric Odom MD [Primary Care Provider] - Print Language: Icelandic
[2024-12-13 09:22] VITALS: BP 170/77; PULSE 84; RESP 17; TEMP 36.6; O2SAT 100
== END 2024-12-13 09:23 | disposition home or self-care (01) ==
PROVIDERS: Emergency Provider Surgery; PCP Family Medicine; Visit Provider Surgery
DX: S90.421A Blister (nonthermal), right great toe, initial encounter (principal); I25.10 Atherosclerotic heart disease of native coronary artery without angina pectoris; Z87.891 Personal history of nicotine dependence; X58.XXXA Exposure to other specified factors, initial encounter
CPT/HCPCS: 99282

== ENCOUNTER 2025-03-04 13:30 | Inpatient (IN) | payer OTHER, MEDICAID, SELFPAY ==
[2025-03-04] VITALS (11 sets, daily range): BP systolic 97–154; BP diastolic 52–93; PULSE 55–92; RESP 11–19; TEMP 36.8–36.9; O2SAT 94–100; BMI 47.0; BMI 46.3
--- NOTE | 2025-03-04 14:02 | RAD_ITS ---
PROCEDURE: CHEST PA AND LATERAL 03/04/2025 REASON FOR EXAM: CHEST PAIN TECHNIQUE: CHEST PA AND LATERAL COMPARISON: Chest x-ray 08/12/2021. RAD/Chest PA and Lateral IMPRESSION: Lungs appear clear of acute disease. No pleural effusion or pneumothorax is noted. The cardiomediastinal silhouette is within the normal range. Left glenohumeral joint degenerative changes are noted. Degenerative changes of the visualized spine are also seen. No acute osseous process is seen. Reading Location: [place] [id number]
--- NOTE | 2025-03-04 14:02 | EKG12_ITS ---
Test Reason : CP Blood Pressure : */* mmHG Vent. Rate : 87 BPM Atrial Rate : 87 BPM P-R Int : 172 ms QRS Dur : 96 ms QT Int : 372 ms P-R-T Axes : 37 63 35 degrees QTcB Int : 447 ms Normal sinus rhythm Normal ECG Confirmed by MAURI WOODALL, RUTH ([id number]), script editor PEPPER HARGROVE ([id number]) on 03/05/2025 1:31:48 PM Referred By: Hamilton Corral Confirmed By: RUTH DOTSON MD
[2025-03-04] MEDS: 0.9% Normal Saline (1000mL) 1,000 ML 999 ML IV (14:13)
--- NOTE | 2025-03-04 14:23 | EDS_ITS ---
HPI History of Present Illness Chief Complaint: Chest Pain Narrative Narrative: Patient is a 54-year-old male past medical history of CAD with stents, hyperlipidemia, BMI of 47, hypertension, former smoker, depression, anxiety who presented to the emergency department with a chief complaint of chest pain. Patient states that this feels very similar to when he originally had his heart attack back in 2008. He states that he has pain in the center of her chest rating between his shoulder blades. He states that has been going on for last several days but notes that it significantly worsened today prompting him to come here for further evaluation management. Patient states that he does not follow with a doctor on a regular basis as he does not have insurance therefore he has not had a stress test or a repeat heart cath in a extended period of time. Patient denies any recent travel history denies any history of blood clots. Patient does admit to occasional cannabis use but denies any IV drug use. [facility] Medical History Wears glasses Cancer Arthritis History of Holter monitoring Normal stress echocardiogram History of stress test Hypertension Cardiology follow-up encounter Anxiety Umbilical hernia Essential hypertension Wears contact lenses Depression History of steroid therapy Chronic pain Shortness of breath on exertion Former smoker Edema Myocardial infarct Hx of echocardiogram Back pain right elbow surgery History of lateral wall myocardial infarction (07/22/09) Atherosclerotic heart disease of [place] coronary artery without angina pectoris HTN (hypertension) Morbid obesity with BMI of 40.0-44.9, adult Tobacco use disorder HLD (hyperlipidemia) Family history of ischemic heart disease Home Medications ?Medication ?Instructions ?Recorded ?Last Taken ?Type aspirin 325 mg tablet 325 mg PO DAILY@0800 9 09/15/23 History chlorthalidone 25 mg tablet 25 mg PO DAILY 10/27/20 10:00 History metoprolol tartrate 25 mg tablet 25 mg PO BID 10/27/20 09/22/23 History multivitamin 1 tab PO DAILY 03/27/21 Unkn own History glucosamine HCl 1,500 mg tablet 1,000 mg PO DAILY 08/05 11/23 Unknown History hydroxyzine HCl 50 mg tablet 100 mg PO QHS 08/17/21 Un known History nortriptyline 50 mg capsule 100 mg PO QHS 08/17/21 Unk nown History losartan 100 mg tablet 100 mg PO DAILY 11/17/21 History amlodipine 10 mg tablet (Norvasc) 10 mg PO DAILY 09/1209/22/23 History duloxetine 30 mg capsule,delayed 30 mg PO DAILY Unknown History release (Cymbalta) nevin root extract 500 mg 1,300 mg PO DAILY 09/05 10/29 Unknown History capsule magnesium 200 mg tablet 400 mg PO DAILY 09/16/23 Unk nown History oxycodone 5 mg tablet 5 - 10 mg (1 - 2 x 5 mg) PO Q6H 09/22/23 Unknown Rx PRN pain 5 days #15 tabs clindamycin HCl 300 mg capsule 300 mg PO Q6H 7 days #2 8 caps 12/13/24 Unknown Rx (Cleocin HCl) Allergy/AdvReac Type Severity Reaction Status Date / Time bee venom protein (honey bee) Allergy Swelling Verified 03/04/25 13:35 atorvastatin AdvReac Severe Myalgias Verified 03/04/25 13:35 cephalexin (From Keflex) AdvReac GIVES ME Verified 03/04/25 13:35 THE JITTERS shellfish derived AdvReac Nausea/Vom/ Verified 03/04/25 13:35 Diarrhea Family History Father , Age 57 of [place], had [place]/CAD at age 39 CAD (coronary artery disease) Myocardial infarction Mother Hypertension Sister Hypertension Surgical History S/P umbilical hernia repair, follow-up exam Hx of surgical procedure History of surgery on arm History of dental surgery Stented coronary artery (07/22/09) Social History household members: other details: mother housing: house current occupational status: employed 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[employer] 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: Former smoker pack-years: 20 alcohol intake: never do you feel safe at home: Yes ROS ROS ED ROS Narrative Constitutional: Denies any fevers, chills, headaches Eyes: Denies change in vision double vision blurry vision Cardiovascular: Complains chest pain as noted above denies palpitations Respiratory: Denies coughing wheezing shortness of breath Abdomen: Complains of nausea denies abdominal pain vomiting diarrhea : Denies urinary symptoms Neurological: Denies any numbness, wheeze, tingling Musculoskeletal: Complains of chest pain rating to his back between shoulder blades noted above Skin: Denies any rashes or lesions EXAM Physical Exam Narrative Exam Narrative: General: Patient did not appear to be uncomfortable in bed no acute distress Head: Atraumatic, normocephalic Eyes: PERRL bilaterally, EOMI bilateral, no conjunctival injection noted Neck: Soft, supple, trachea midline Cardiovascular: Regular rate and rhythm Respiratory: Clear to auscultation bilaterally Abdomen: No tenderness palpation Extremities: Radial pulses +2/4 in the bilateral extremities, +5/5 strength noted in the bilateral upper and lower extremities Neurological: Patient follow commands knew that he was at [facility] year is 2024 Skin: Warm, dry, tact no rashes or lesions noted Const Vital Signs: 03/04/25 13:30 03/04/25 14:06 Temperature 98.2 F Temperature Source Oral Pulse Rate 92 Respiratory Rate 19 H Blood Pressure 114/93 H Blood Pressure Mean 100 Pulse Ox 99 Oxygen Delivery Method Room Air Room Air MDM MDM MDM Narrative Medical decision making narrative: Patient is a 54-year-old male who presented to the emergency department chief complaint chest pain and states that this feels very similar to a previous heart attack. On the differential diagnose includes but limited to ACS, pneumonia, pneumothorax, electrolyte abnormality, cardiac arrhythmia. Once workup is obtained reviewed he will be reevaluated. Patient given sublingual nitro, aspirin and Zofran. Discharge Plan Triage Chief Complaint: Chest Pain ED Provider: Anselmo Rios Dx/Rx/DC Orders Prescriptions: No Action chlorthalidone 25 mg tablet 25 mg PO DAILY Patient Comments: TAKE 1 TABLET BY MOUTH EVERY DAY metoprolol tartrate 25 mg tablet 25 mg PO BID Patient Comments: TAKE 1 TABLET BY MOUTH TWICE A DAY hydroxyzine HCl 50 mg tablet 100 mg PO QHS nortriptyline 50 mg capsule 100 mg PO QHS Patient Comments: TAKE 1 CAPSULE BY MOUTH EVERYDAY AT BEDTIME glucosamine HCl 1,500 mg tablet 1,000 mg PO DAILY Rx Instructions: administer with a meal losartan 100 mg tablet 100 mg PO DAILY duloxetine [Cymbalta] 30 mg capsule,delayed release(DR/EC) 30 mg PO DAILY amlodipine [Norvasc] 10 mg tablet 10 mg PO DAILY aspirin 325 MG tablet 325 mg PO DAILY@0800 multivitamin Tablet 1 tab PO DAILY ashwagandha root extract 500 mg capsule 1,300 mg PO DAILY magnesium 200 mg tablet 400 mg PO DAILY oxycodone 5 mg tablet 5 - 10 mg PO Q6H PRN (Reason: pain) 5 Days Qty: 15 0RF clindamycin HCl [Cleocin HCl] 300 mg capsule 300 mg PO Q6H 7 Days Qty: 28 0RF Primary Care Provider: Eric Odom Referrals: Eric Odom MD [Primary Care Provider] - Print Language: Wallisian
--- NOTE | 2025-03-04 14:23 | EX.ED.DYSGE1 ---
HPI History of Present Illness Chief Complaint: Chest Pain Narrative Narrative: Patient is a 54-year-old male past medical history of CAD with stents, hyperlipidemia, BMI of 47, hypertension, former smoker, depression, anxiety who presented to the emergency department with a chief complaint of chest pain. Patient states that this feels very similar to when he originally had his heart attack back in 2008. He states that he has pain in the center of her chest rating between his shoulder blades. He states that has been going on for last several days but notes that it significantly worsened today prompting him to come here for further evaluation management. Patient states that he does not follow with a doctor on a regular basis as he does not have insurance therefore he has not had a stress test or a repeat heart cath in a extended period of time. Patient denies any recent travel history denies any history of blood clots. Patient does admit to occasional cannabis use but denies any IV drug use. [facility] Medical History Wears glasses Cancer Arthritis History of Holter monitoring Normal stress echocardiogram History of stress test Hypertension Cardiology follow-up encounter Anxiety Umbilical hernia Essential hypertension Wears contact lenses Depression History of steroid therapy Chronic pain Shortness of breath on exertion Former smoker Edema Myocardial infarct Hx of echocardiogram Back pain right elbow surgery History of lateral wall myocardial infarction (07/22/09) Atherosclerotic heart disease of [place] coronary artery without angina pectoris HTN (hypertension) Morbid obesity with BMI of 40.0-44.9, adult Tobacco use disorder HLD (hyperlipidemia) Family history of ischemic heart disease Home Medications ?Medication ?Instructions ?Recorded ?Last Taken ?Type aspirin 325 mg tablet 325 mg PO DAILY@0800 11/09/18 03/04/25 History metoprolol tartrate 25 mg tablet 25 mg PO BID 10/27/20 03/04/25 History multivitamin 1 tab PO DAILY 03/27/21 03/03/25 History glucosamine HCl 1,500 mg tablet 1,000 mg PO DAILY 08/17/21 03/04/25 History losartan 100 mg tablet 100 mg PO DAILY 11/17/21 03/04/25 History amlodipine 10 mg tablet (Norvasc) 10 mg PO DAILY 09/12/23 03/04/25 History duloxetine 30 mg capsule,delayed 30 mg PO DAILY 09/12/23 03/04/25 History release (Cymbalta) davida root extract 500 mg 1,300 mg PO DAILY 09/16/23 03/03/25 History capsule magnesium 200 mg tablet 400 mg PO DAILY 09/16/23 Unknown History coenzyme Q10 100 mg capsule (Co 300 mg PO DAILY 03/04/25 03/03/25 History Q-10) ibuprofen 200 mg tablet (Addaprin) 800 mg PO Q8H knee pain 03/04/25 03/04/25 History magnesium 250 mg tablet 1,000 mg PO DAILY 03/04/25 03/04/25 History Allergy/AdvReac Type Severity Reaction Status Date / Time bee venom protein (honey bee) Allergy Swelling Verified 03/04/25 13:35 atorvastatin AdvReac Severe Myalgias Verified 03/04/25 13:35 cephalexin (From Keflex) AdvReac GIVES ME Verified 03/04/25 13:35 THE JITTERS shellfish derived AdvReac Nausea/Vom/ Verified 03/04/25 13:35 Diarrhea Family History Father , Age 57 of [place], had [place]/CAD at age 39 CAD (coronary artery disease) Myocardial infarction Mother Hypertension Sister Hypertension Surgical History S/P umbilical hernia repair, follow-up exam Hx of surgical procedure History of surgery on arm History of dental surgery Stented coronary artery (07/22/09) Social History household members: other details: mother housing: house current occupational status: employed 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[employer] 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: Former smoker pack-years: 20 alcohol intake: never do you feel safe at home: Yes ROS ROS ED ROS Narrative Constitutional: Denies any fevers, chills, headaches Eyes: Denies change in vision double vision blurry vision Cardiovascular: Complains chest pain as noted above denies palpitations Respiratory: Denies coughing wheezing shortness of breath Abdomen: Complains of nausea denies abdominal pain vomiting diarrhea : Denies urinary symptoms Neurological: Denies any numbness, wheeze, tingling Musculoskeletal: Complains of chest pain rating to his back between shoulder blades noted above Skin: Denies any rashes or lesions EXAM Physical Exam Narrative Exam Narrative: General: Patient did not appear to be uncomfortable in bed no acute distress Head: Atraumatic, normocephalic Eyes: PERRL bilaterally, EOMI bilateral, no conjunctival injection noted Neck: Soft, supple, trachea midline Cardiovascular: Regular rate and rhythm Respiratory: Clear to auscultation bilaterally Abdomen: No tenderness palpation Extremities: Radial pulses +2/4 in the bilateral extremities, +5/5 strength noted in the bilateral upper and lower extremities Neurological: Patient follow commands knew that he was at [facility] year is 2024 Skin: Warm, dry, tact no rashes or lesions noted Const Vital Signs: 03/04/25 13:30 03/04/25 14:00 03/04/25 14:06 Temperature 98.2 F Temperature Source Oral Pulse Rate 92 74 Respiratory Rate 19 H 15 Blood Pressure 114/93 H 115/77 Blood Pressure Mean 100 88 Pulse Ox 99 97 Oxygen Delivery Method Room Air Room Air 03/04/25 14:26 03/04/25 14:30 03/04/25 15:00 Temperature Temperature Source Pulse Rate 65 66 59 L Respiratory Rate 12 14 Blood Pressure 121/79 H 97/52 L 123/73 H Blood Pressure Mean 67 85 Pulse Ox 98 97 Oxygen Delivery Method Room Air 03/04/25 15:45 03/04/25 16:00 Temperature Temperature Source Pulse Rate 56 L Respiratory Rate 11 L Blood Pressure 133/85 H 139/86 H Blood Pressure Mean 100 103 Pulse Ox 98 Oxygen Delivery Method MDM MDM MDM Narrative Medical decision making narrative: Patient is a 54-year-old male who presented to the emergency department chief complaint chest pain and states that this feels very similar to a previous heart attack. On the differential diagnose includes but limited to ACS, pneumonia, pneumothorax, electrolyte abnormality, cardiac arrhythmia. Once workup is obtained reviewed he will be reevaluated. Patient given sublingual nitro, aspirin and Zofran. Patient chest pain did not improve with the sublingual nitroglycerin he did be calm transient hypotensive after this medication but blood pressure responded to IV fluids. Patient CBC reviewed showed no evidence leukocytosis white blood count was 10.3, hemoglobin was 16.1, plate count of 322. Patient D-dimer was elevated 0.59 did have a CTA of the chest on. Patient sodium 136, Tessman normal at 4, creatinine normal at 0.95. Patient's troponin was noted be 34 EKG reviewed showed sinus rhythm with a rate of 87 bpm. This was compared to previous EKG from September 20, 2023 and was largely unchanged that EKG did have some artifact noted. Patient's chest x-ray reviewed by myself by radiology showed no acute cardiopulmonary processes. Patient CT of the chest reviewed showed no acute pulmonary emboli no focal consolidations noted. I reached out to on-call cloth printing utility worker Dr. Hernandez who is recommending place the patient on heparin and will plan for heart catheterization tomorrow. Discussed the case with hospitalist Dr. Corral who accept the patient for admission. Heparin drip was ordered. Patient notified is agreeable to plan all question concerns answered. Lab Data Labs: Laboratory Results - last 24 hr 03/04/25 03/04/25 13:40 15:30 WBC 7.3 RBC 5.30 Hgb 16.1 Hct 45.7 MCV 86.2 MCH 30.4 MCHC 35.2 RDW Std Deviation 41.0 RDW Coeff of Sandy 13.2 Plt Count 322 MPV 10.5 Immature Gran % (Auto) 0.600 Neut % (Auto) 69.0 Lymph % (Auto) 22.4 Teller % (Auto) 5.5 Eos % (Auto) 1.4 Baso % (Auto) 1.1 H Absolute Neuts (auto) 5.0 Absolute Lymphs (auto) 1.63 Nucleated RBC % 0 D-Dimer Quant (PE/DVT) 0.59 H* Sodium Cancelled 136 Potassium Cancelled 4.0 Chloride Cancelled 102 Carbon Dioxide Cancelled 22.5 Anion Gap Cancelled 11 BUN Cancelled 11 Creatinine Cancelled 0.95 Estim Creat Clear Calc Cancelled 151.76 Est GFR (MDRD) Non-Af Cancelled 95 BUN/Creatinine Ratio Cancelled 11.3 Glucose Cancelled 98 Calcium Cancelled 8.4 Troponin T High Sens Cancelled 34 H Radiography Diagnostic Testing: Clinical Impression(s) from Imaging Studies Chest X-Ray 03/04/25 14:02 IMPRESSION: Lungs appear clear of acute disease. No pleural effusion or pneumothorax is noted. The cardiomediastinal silhouette is within the normal range. Left glenohumeral joint degenerative changes are noted. Degenerative changes of the visualized spine are also seen. No acute osseous process is seen. Reading Location: [facility] Chest CTA 03/04/25 15:06 IMPRESSION: No acute pulmonary emboli. No focal consolidations. Reading Location: [facility] Discharge Plan Triage Chief Complaint: Chest Pain ED Provider: Anselmo Rios Dx/Rx/DC Orders Clinical Impression: Chest pain, Non-ST elevation NC (NSTEMI) Prescriptions: No Action metoprolol tartrate 25 mg tablet 25 mg PO BID Patient Comments: TAKE 1 TABLET BY MOUTH TWICE A DAY glucosamine HCl 1,500 mg tablet 1,000 mg PO DAILY Rx Instructions: administer with a meal losartan 100 mg tablet 100 mg PO DAILY duloxetine [Cymbalta] 30 mg capsule,delayed release(DR/EC) 30 mg PO DAILY amlodipine [Norvasc] 10 mg tablet 10 mg PO DAILY aspirin 325 MG tablet 325 mg PO DAILY@0800 multivitamin Tablet 1 tab PO DAILY ashwagandha root extract 500 mg capsule 1,300 mg PO DAILY magnesium 200 mg tablet 400 mg PO DAILY magnesium 250 mg tablet 1,000 mg PO DAILY coenzyme Q10 [Co Q-10] 100 mg capsule 300 mg PO DAILY ibuprofen [Addaprin] 200 mg tablet 800 mg PO Q8H Primary Care Provider: Eric Odom Referrals: Eric Odom MD [Primary Care Provider] - Print Language: Macedonian Disposition Disposition: Acute Care Hospital [facility]
[2025-03-04] MEDS: Nitroglycerin SL (ED/IMG/CATH) 0.4 MG TABLET SL (14:26)
[2025-03-04 14:36] LABS: Hematocrit 45.7 % (40-54); Hemoglobin 16.1 g/dL (13.0-16.5); Immature Granulocytes Count 0.040 X10^3/uL (0.0-0.0); Mean Corp Hgb Conc 35.2 g/dL (32-36); Mean Corpuscular Volume 86.2 fL (80-94); Mean Platelet Vol. 10.5 fl (6.2-12.0); NRBC Flagged by Analyzer 0 % (0-5); Platelet Count 322 K/mm3 (150-450); RBC Distribution Width CV 13.2 % (11.6-14.6); RBC Distribution Width SD 41.0 fl (35.1-43.9); Red Blood Count 5.30 M/mm3 (4.6-6.2); White Blood Count 7.3 K/mm3 (4.4-11.0)
[2025-03-04 15:00] LABS: D-Dimer Quantitative (DVT/PE) 0.59 FEU/ug/m (0.27-0.49)
--- NOTE | 2025-03-04 15:00 | ED.RN ---
Critical D dimer received from lab of 0.59. Dr. Rios notified.
--- NOTE | 2025-03-04 15:06 | CT_ITS ---
PROCEDURE: CTA CHEST W/WO CONTRAST 03/04/2025 REASON FOR EXAM: CHEST PAIN BETWEEN SHOULDERS, ELEVATED DIMER TECHNIQUE: CTA CHEST W/WO CONTRAST Multiplanar Sagittal and Coronal images were obtained. CONTRAST: 100 mL of Isovue 370 One or more dose reduction techniques were used (e.g., Automated exposure control, adjustment of the mA and/or kV according to patient size, use of iterative reconstruction technique). RADIATION DOSE SUMMARY: DLP: 535 mGycm COMPARISON: None FINDINGS: PULMONARY ARTERIES: No evidence of pulmonary embolism. LUNGS AND PLEURA: No consolidations. No definite pulmonary edema. No mass or nodule. No pleural effusion. No pneumothorax. MEDIASTINUM: No lymphadenopathy or mass. The heart shows no acute findings. Extensive coronary atherosclerosis. The aorta shows no acute findings. The pulmonary trunk, and branches of the vessels in the mediastinum are within normal limits. SUPRACLAVICULAR AND AXILLARY: No abnormalities seen in these regions. No mass or significant lymphadenopathy. UPPER ABDOMEN: The visualized upper abdomen is unremarkable. BONES AND SOFT TISSUES: The ribs are unremarkable. The visualized spine shows no significant acute findings. No focal bony mass lesions noted. The subcutaneous soft tissues are unremarkable. CT/CTA Chest W/WO Contrast IMPRESSION: No acute pulmonary emboli. No focal consolidations. Reading Location: [id number]
[2025-03-04 15:59] LABS: Anion Gap 11 (5-15); BUN 11 mg/dL (4-19); BUN/Creat Ratio 11.3 RATIO (10-20); Calcium,Total 8.4 mg/dL (7.6-11.0); Carbon Dioxide 22.5 mmol/L (21.0-32.0); Chloride 102 mmol/L (98-108); Estimated Creatinine Clearance 151.76 ml/min (50-250); Glucose 98 mg/dL (70-99); Potassium 4.0 mmol/L (3.3-5.1)
[2025-03-04 16:04] LABS: Troponin T High Sensitivity 34 ng/L (<=22)
--- NOTE | 2025-03-04 16:28 | PCM.HP.STD ---
HPI - General General Date of Admission: 03/04/25 Date of Service: 03/04/25 Chief Complaint: Chest pain HPI Narrative ARGELIA COPELAND, is a 54 M who presented to [facility] ED on 03/04/2025 with chest pain. Patient has history of CAD with stenting back and 2008. Had stent x 1 placed at that time. He notably was only 38 years old then. Patient reports no further cardiac issues since then but importantly he does not have a regular doctor or medical insurance so he has not had medical follow-up in several years. States that he had chest discomfort now starting 4 to 5 days ago that worsened significantly over the past day or so. The chest pain radiates to in between his shoulder blades. He notes that it is similar to the pain he had back in 2008. In the ED today he was hemodynamically stable on room air at rest. CBC and BMP were benign. D-dimer was mildly elevated so CTA chest was obtained which showed no acute PE and no focal consolidations, although it notably did call extensive coronary atherosclerosis. EKG showed normal sinus rhythm with no ischemic changes. However, initial troponin was elevated at 34. Patient was given nitro and did report improvement with his chest pain. Case was discussed with cardiology who recommended starting a heparin drip and admission for suspected NSTEMI type I with plan for left heart catheterization tomorrow. Hospitalist was then contacted for admission. I saw the patient at bedside in the ED. Patient was pleasant and sitting back comfortably in bed, conversing normally and in no acute distress. Stated that his chest pain was moderately improved from earlier today. Reported mild chest discomfort but the back pain was gone at this time. Does report having an infection that kept him in bed for 2 to 3 days shortly before the chest pain began. His main symptoms were URI symptoms and fatigue with bodyaches. Patient is a former smoker. He does report using marijuana occasionally. He denies any other acute concerns currently. Will be admitted for further management. [facility] Medical History Wears glasses Cancer Arthritis History of Holter monitoring Normal stress echocardiogram History of stress test Hypertension Cardiology follow-up encounter Anxiety Umbilical hernia Essential hypertension Wears contact lenses Depression History of steroid therapy Chronic pain Shortness of breath on exertion Former smoker Edema Myocardial infarct Hx of echocardiogram Back pain right elbow surgery History of lateral wall myocardial infarction (07/22/09) Atherosclerotic heart disease of [place] coronary artery without angina pectoris HTN (hypertension) Morbid obesity with BMI of 40.0-44.9, adult Tobacco use disorder HLD (hyperlipidemia) Family history of ischemic heart disease Home Medications ?Medication ?Instructions ?Recorded ?Last Taken ?Type aspirin 325 mg tablet 325 mg PO DAILY@0800 11/09/18 03/04/25 History metoprolol tartrate 25 mg tablet 25 mg PO BID 10/27/20 03/04/25 History multivitamin 1 tab PO DAILY 03/27/21 03/03/25 History glucosamine HCl 1,500 mg tablet 1,000 mg PO DAILY 08/17/21 03/04/25 History losartan 100 mg tablet 100 mg PO DAILY 11/17/21 03/04/25 History amlodipine 10 mg tablet (Norvasc) 10 mg PO DAILY 09/12/23 03/04/25 History duloxetine 30 mg capsule,delayed 30 mg PO DAILY 09/12/23 03/04/25 History release (Cymbalta) ashwagandha root extract 500 mg 1,300 mg PO DAILY 09/16/23 03/03/25 History capsule magnesium 200 mg tablet 400 mg PO DAILY 09/16/23 Unknown History coenzyme Q10 100 mg capsule (Co 300 mg PO DAILY 03/04/25 03/03/25 History Q-10) ibuprofen 200 mg tablet (Addaprin) 800 mg PO Q8H knee pain 03/04/25 03/04/25 History magnesium 250 mg tablet 1,000 mg PO DAILY 03/04/25 03/04/25 History Allergy/AdvReac Type Severity Reaction Status Date / Time bee venom protein (honey bee) Allergy Swelling Verified 03/04/25 13:35 atorvastatin AdvReac Severe Myalgias Verified 03/04/25 13:35 cephalexin (From Keflex) AdvReac GIVES ME Verified 03/04/25 13:35 [employer] shellfish derived AdvReac Nausea/Vom/ Verified 03/04/25 13:35 Diarrhea Family History Father , Age 57 of [place], had NM/CAD at age 39 CAD (coronary artery disease) Myocardial infarction Mother Hypertension Sister Hypertension Surgical History S/P umbilical hernia repair, follow-up exam Hx of surgical procedure History of surgery on arm History of dental surgery Stented coronary artery (07/22/09) Social History household members: other details: mother housing: house current occupational status: employed current occupation: [employer] at [employer] 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: Former smoker pack-years: 20 alcohol intake: never do you feel safe at home: Yes ROS Constitutional Constitutional: Denies chills, fatigue, fever(s) or weakness Cardiovascular Cardiovascular: Reports chest pain; Denies dyspnea on exertion, edema, lightheadedness or palpitations Respiratory/Chest Respiratory/Chest: Denies cough, shortness of breath at rest, shortness of breath with exertion or wheezing Gastrointestinal Gastrointestinal: Denies abdominal pain, constipation, diarrhea, nausea or vomiting Genitourinary Genitourinary: Denies dysuria Musculoskeletal Musculoskeletal: Reports back pain; Denies arthralgias or myalgias Neurologic Neurologic: Denies dizziness, focal weakness or headache(s) Vital Signs Vital Signs Vital Signs: 03/04/25 13:30 03/04/25 14:00 03/04/25 14:06 Temperature 98.2 F Temperature Source Oral Pulse Rate 92 74 Respiratory Rate 19 H 15 Blood Pressure 114/93 H 115/77 Blood Pressure Mean 100 88 Pulse Ox 99 97 Oxygen Delivery Method Room Air Room Air 03/04/25 14:26 03/04/25 14:30 03/04/25 15:00 Temperature Temperature Source Pulse Rate 65 66 59 L Respiratory Rate 12 14 Blood Pressure 121/79 H 97/52 L 123/73 H Blood Pressure Mean 67 85 Pulse Ox 98 97 Oxygen Delivery Method Room Air 03/04/25 15:45 03/04/25 16:00 Temperature Temperature Source Pulse Rate 56 L Respiratory Rate 11 L Blood Pressure 133/85 H 139/86 H Blood Pressure Mean 100 103 Pulse Ox 98 Oxygen Delivery Method Weight Weight: 175.1 kg Body Mass Index (BMI) 47.0 Physical Exam Const alert, oriented x3 and no apparent distress Constitutional Narrative: Pleasant middle-age male, class III obesity, facial flushing noted, otherwise sitting back comfortably in bed, conversing normally, in no acute distress. General Appearance: cooperative and comfortable HEENT normocephalic, head/scalp atraumatic, hearing grossly normal bilaterally, nasal mucous membranes and turbinates normal and moist oral mucous membranes Eyes PERRL, EOMs intact bilaterally and conjunctivae normal Neck full ROM Chest inspection of chest normal Resp normal respiratory effort, normal air movement, no use of accessory muscles and clear to auscultation bilaterally Cardio regular rate, regular rhythm, no murmurs and peripheral pulses 2+ throughout GI normal to inspection, nondistended, normoactive bowel sounds, soft to palpation, non-tender and non-distended Back/Spine normal ROM Extremity normal to inspection, full ROM and no pedal edema Skin no rashes or lesions noted Neuro moves all extremities and no focal motor deficits Speech: speech normal Motor Exam: strength 5/5 throughout Psych mental status grossly normal Results Lab / Micro Data 03/04/25 13:40 03/04/25 15:30 Labs: Laboratory Results - last 24 hr 03/04/25 13:40: WBC 7.3, RBC 5.30, Hgb 16.1, Hct 45.7, MCV 86.2, MCH 30.4, MCHC 35.2, RDW Std Deviation 41.0, RDW Coeff of Sandy 13.2, Plt Count 322, MPV 10.5, Immature Gran % (Auto) 0.600, Neut % (Auto) 69.0, Lymph % (Auto) 22.4, Nicholas % (Auto) 5.5, Eos % (Auto) 1.4, Baso % (Auto) 1.1 H, Absolute Neuts (auto) 5.0, Absolute Lymphs (auto) 1.63, Nucleated RBC % 0, D-Dimer Quant (PE/DVT) 0.59 H*, Sodium Cancelled, Potassium Cancelled, Chloride Cancelled, Carbon Dioxide Cancelled, Anion Gap Cancelled, BUN Cancelled, Creatinine Cancelled, Estim Creat Clear Calc Cancelled, Est GFR (MDRD) Non-Af Cancelled, BUN/Creatinine Ratio Cancelled, Glucose Cancelled, Calcium Cancelled, Troponin T High Sens Cancelled 03/04/25 15:30: Sodium 136, Potassium 4.0, Chloride 102, Carbon Dioxide 22.5, Anion Gap 11, BUN 11, Creatinine 0.95, Estim Creat Clear Calc 151.76, Est GFR (MDRD) Non-Af 95, BUN/Creatinine Ratio 11.3, Glucose 98, Calcium 8.4, Troponin T High Sens 34 H Imaging Radiology Impression Chest X-Ray 03/04/25 14:02 IMPRESSION: Lungs appear clear of acute disease. No pleural effusion or pneumothorax is noted. The cardiomediastinal silhouette is within the normal range. Left glenohumeral joint degenerative changes are noted. Degenerative changes of the visualized spine are also seen. No acute osseous process is seen. Reading Location: [facility] Chest CTA 03/04/25 15:06 IMPRESSION: No acute pulmonary emboli. No focal consolidations. Reading Location: [id number] Assessment & Plan Assessment/Plan (1) Non-ST elevation NM (NSTEMI): PLAN: Plan Patient is a 54-year-old male who presented to [facility] ED on 03/04/2025 with chest pain. 1. NSTEMI; history of CAD with stenting, hypertension, hyperlipidemia ? Admit under inpatient status to PCU. Cardiology consulted. High suspicion for NSTEMI type I given prior history of CAD with stenting and typical chest pain with improvement with rest. Initial troponin 34, repeat pending. EKG with no ischemic changes noted. Per cardiology recs, will treat with heparin drip at this time. N.p.o. at midnight with plan for left heart catheterization tomorrow. Echocardiogram ordered. Lipid panel, A1c and TSH ordered as well. Okay to continue home Lopressor and amlodipine. Will hold home losartan for cath tomorrow, then okay to resume after that. 2. Chronic low back pain with radiculopathy ? Patient does report taking ibuprofen 800 mg frequently for this, which could contribute to NSTEMI as above. Hold NSAIDs going forward. Continue home duloxetine. 3. Class III obesity ? BMI 46 on admit. Encouraged lifestyle modifications. 4. Marijuana use ? Reports occasional use. Discussed cessation on discharge. DVT prophylaxis: Not indicated, on heparin drip CODE STATUS: Full code, verified Expected disposition: TBD Total clinical time spent by myself addressing the patient's medical issues, reviewing all the data, and collaborating with patient's care team: 75 minutes. Charges/Coding Visit Charges Inpatient E&M: 48062 Init Hosp L3
[2025-03-04] MEDS: Heparin Injection (Vial) 5,000 UNIT/ML VIAL 4000 UNIT IV (16:40)
[2025-03-04] MEDS: HEPARIN/D5w 25,000 UNITS 25,000 UNITS/250 ML IV.SOLN. 10 UNITS CONT INF (16:42)
[2025-03-04 16:54] LABS: Prothrombin Time (Protime)PT. 13.4 SECONDS (11.7-14.9)
[2025-03-04 16:55] LABS: Partial Thromboplast Time 23.0 Seconds (24.1-36.2)
--- NOTE | 2025-03-04 17:27 | ECHOCS_ITS ---
Reason For Study Reason For Study: Chest Pain Procedure This was a 2D Doppler, Color Flow transthoracic echocardiogram. The study was technically difficult. Contrast injection was performed. Exam performed portable in patient room. Left Ventricle Normal left ventricle. The estimated ejection fraction is 55???60 %. Right Ventricle Normal right ventricle. Normal systolic function. Atria The left atrium is mildly enlarged. Normal left atrium. Normal right atrium. Mitral Valve The mitral valve is structurally normal. No prolapse or stenosis seen. Tricuspid Valve Normal tricuspid valve. Aortic Valve Trisinus/trileaflet aortic valve. Pulmonic Valve The pulmonic valve is not well visualized. Great Vessels The aortic root is not well visualized. Pericardium/Pleural No pericardial effusion. Medication Diluted definity 3.5ml given slow IV push to enhance endocardial definition. MMode/2D Measurements & Calculations LVIDd: 4.4 cm IVSd: 1.6 cm Ao root diam: 3.9 cm LVIDs: 2.8 cm LVPWd: 1.1 cm RVDd: 4.3 cm FS: 35.1 % LAV(MOD-bp): 69.0 ml LVAd ap4: 43.1 cm2 SV(MOD-sp4): 84.9 ml LAV(MOD-bp) Indexed: 23.7 ml/m2 LVLd ap4: 9.9 cm SI(MOD-sp4): 29.2 ml/m2 LAV(MOD-sp2): 78.6 ml EDV(MOD-sp4): 150.1 ml LAV(MOD-sp4): 58.1 ml EDV(sp4-el): 159.4 ml LVAs ap4: 25.3 cm2 LVLs ap4: 8.0 cm ESV(MOD-sp4): 65.2 ml ESV(sp4-el): 68.3 ml EF(MOD-sp4): 56.6 % EF(sp4-el): 57.1 % SV(sp4-el): 91.1 ml LA A4 area: 20.9 cm2 LA dimension(2D): 4.4 cm RA A4 area: 17.9 cm2 TAPSE: 2.6 cm Time Measurements MV dec time: 0.28 sec Doppler Measurements & Calculations MV E max brock: 68.8 cm/sec Lat Peak E' Brock: 13.6 cm/sec Med Peak E' Brock: 11.0 cm/sec MV A max brock: 90.5 cm/sec E/E' lat: 5.1 E/E' med: 6.3 MV E/A: 0.76 MV V2 max: 89.3 cm/sec MV P1/2t max brock: 90.3 cm/sec Ao V2 max: 136.8 cm/sec MV max P.2 mmHg MV P1/2t: 93.7 msec Ao max P.5 mmHg MV V2 mean: 48.1 cm/sec MV dec slope: 282.0 cm/sec2 Ao V2 mean: 96.5 cm/sec MV mean P.1 mmHg MVA(P1/2t): 2.3 cm2 Ao mean P.3 mmHg MV V2 VTI: 25.2 cm Ao V2 VTI: 31.6 cm AV (velocity ratio): 0.75 LV V1 max: 102.5 cm/sec PA V2 max: 103.2 cm/sec LV V1 max P.2 mmHg LV V1 mean P.7 mmHg LV V1 mean: 78.5 cm/sec LV V1 VTI: 23.7 cm ECHO/Echo Complete W/ Contrast Interpretation Summary The estimated ejection fraction is 55???60 %. Normal LV systolic function No significant change from previous echocardiogram Contrast echo/Definity used Ordering Physician: Hamilton Corral Referring Physician: Hamilton Corral Performed By: Wero Knutson RCS
[2025-03-04 19:00] LABS: Troponin T High Sensitivity 41 ng/L (<=22)
[2025-03-04 21:24] LABS: Troponin T High Sens 2 HR 31 ng/L (<=22)
[2025-03-04 22:24] LABS: Partial Thromboplast Time 24.1 Seconds (24.1-36.2)
[2025-03-04 22:45] LABS: Troponin T High Sens 4 HR 23 ng/L (<=22)
[2025-03-04] MEDS: Heparin Injection (Vial) 5,000 UNIT/ML VIAL IV (22:54)
[2025-03-05] VITALS (7 sets, daily range): BP systolic 133–164; BP diastolic 60–103; PULSE 64–67; RESP 14–16; TEMP 36.1–36.6; O2SAT 94–98
--- OUTSIDE RECORDS SUMMARY | 2025-03-05 00:10 | XMS RPT_ITS | CCD ---
Author Organization [facility] Care Team Providers Care Sole Skiver Name Role Phone Dr. Eric Odom Primary Care Provider Dr. Eric Odom Referring Provider Tristin CRANDALL, BECKY Green Attending Provider Dr. Eric Odom Primary Care Provider [phone] Eric Odom Referring Provider Smiley MONTGOMERY, GARY Montes Attending Provider Dr. Christopher Montero Attending Provider Dr. Christiano Hatfield Attending Provider Dr. Christopher Montero Referring Provider Dr. Christopher Montero Other Provider [phone] Dr. Eric Odom MD Primary Care Provider Dr. Wero Santiago DO Emergency Provider Blaine Hall Referring Unavailable Eric Odom Primary Care Unavailable Blaine Hall Attending Unavailable Eric Odom Primary Care Unavailable Wero Santiago Attending UnavailDr. Wero Waite DO Attending Provider Dr. Anselmo Rios DO Emergency Provider Dr. Hamilton Corral DO Admit Provider Dr. Hamilton Corral DO Attending Provider Dr. Hamilton oCrral DO Referring Provider Allergies Allergy Classification Reported Allergen(s) Allergy Type Date of Onset Reaction(s) Facility (7 sources) atorvastatin Drug Allergy 2 Myalgias [facility] (7 sources) Cephalexin Drug Allergy 2 GIVES ME THE JITTERS [facility] (8 sources) Shellfish; Translations: [shellfish derived] Propensity to adverse reactions 2 Nausea/Vom/Diar sari [facility] (7 sources) bee venom protein (honey bee) Allergy to substance 2 Swelling [facility] (1 source) atorvastatin Drug Allergy 5 [facility] (1 source) Cephalexin Drug Allergy 5 [facility] (1 source) bee venom protein (honey bee) Drug allergy (disorder) 5 [facility] Medications Current Medications Medication Drug Class(es) Dates Sig (Normalized) Sig (Original) amLODIPine 10 mg oral tablet (17 sources) Dihydropyridine Calcium Channel Maador Start: 10-27-2020 End: 09-12-2023 take 1 tablet by mouth once daily Amlodipine (Norvasc) 10 mg tablet Active 10 mg PO DAILY September 12, 2023 1:00am Start: 11-14-2018 End: 10-27-2020 take 1 tablet by mouth once daily Amlodipine 5 mg tablet Discontinued 5 mg PO DAILY November 14, 2018 12:00am October 27, 2020 4:11pm Ashwagandha Root Extract (1 source) Start: 09-16-2023 take 1300 mg by mouth once daily Ashwagandha Root Extract Active 1300 MG PO DAILY September 16, 2023 12:00am Ashwagandha Root Extract 500 mg capsule (2 sources) Start: 09-16-2023 take 1 capsule by mouth once daily Ashwagandha Root Extract 500 mg capsule Active 1300 mg PO DAILY September 16, 2023 1:00am aspirin 325 mg oral tablet (7 sources) Platelet Aggregation Inhibitor, Nonsteroidal Anti-inflammatory Drug Start: 11-09-2018 take 1 tablet by mouth once daily Aspirin 325 MG tablet Active 325 mg PO DAILY@0800 November 09, 2018 1:00am DULoxetine 30 mg delayed release oral capsule (3 sources) Serotonin and Norepinephrine Reuptake Inhibitor Start: 09-12-2023 take 1 capsule by mouth once daily Duloxetine (Cymbalta) 30 mg capsule,delayed release(DR/EC) Active 30 mg PO DAILY September 12, 2023 1:00am glucosamine hydrochloride 1500 mg oral tablet (7 sources) Start: 08-17-2021 Glucosamine Hcl 1,500 mg tablet Active 1000 mg PO DAILY August 17, 2021 1:00am administer with a meal Start: 08-17-2021 take 1000 mg by mout h once daily Glucosamine Hcl Active 1000 MG PO DAILY August 17, 2021 12:00am administer with a meal Start: 08-17-2021 take 1500 mg by mout h once daily Glucosamine Hcl Active 1500 MG PO DAILY August 17, 2021 12:00am administer with a meal ibuprofen 200 mg oral tablet (1 source) Nonsteroidal Anti-inflammatory Drug Start: 03-04-2025 Ibuprofen (Addaprin) 200 mg tablet Active 800 mg PO Q8H March 04, 2025 12:00am knee pain losartan potassium 100 mg oral tablet (20 sources) Angiotensin 2 Receptor Amador Start: 11-17-2021 take 1 tablet by mouth once daily Losartan 100 mg tablet Active 100 mg PO DAILY November 17, 2021 12:00am Start: 10-27-2020 End: 11-17-2021 take 2 tablets by mouth once daily Losartan 50 mg tablet Discontinued 100 mg PO DAILY October 27, 2020 4:07pm November 17, 2021 3:10pm Start: 10-27-2020 End: 11-17-2021 take 100 mg by mouth once daily Losartan Discontinued 100 MG PO DAILY October 27, 2020 3:07pm November 17, 2021 2:10pm Start: 11-14-2018 End: 10-27-2020 take 1 tablet by mouth once daily Losartan 50 mg tablet Discontinued 50 mg PO DAILY November 14, 2018 12:00am October 27, 2020 4:17pm Start: 11-09-2018 End: 11-14-2018 Losartan 50 MG tablet Discon tinued 50 NMA PO AT BEDTIME November 09, 2018 1:00am November 14, 2018 11:00am Start: 11-09-2018 End: 11-14-2018 Losartan Discontinued 50 MGP E PO AT BEDTIME November 09, 2018 12:00am November 14, 2018 10:00am Start: 11-09-2018 End: 11-14-2018 take 1 mg by mouth at bedtime Losartan Discontinued 50 MG PE PO AT BEDTIME November 09, 2018 12:00am November 14, 2018 10:00am Magnesium (4 sources) Start: 03-04-2025 take 4 tablets by mo uth once daily Magnesium 250 mg tablet Active 1000 mg PO DAILY March 04, 2025 12:00am Start: 09-16-2023 take 2 tablets by mo uth once daily Magnesium 200 mg tablet Active 400 mg PO DAILY September 16, 2023 1:00am Start: 09-16-2023 take 400 mg by mouth once thomas y Magnesium Active 400 MG PO DAILY September 16, 2023 12:00am metoprolol tartrate 25 mg oral tablet (7 sources) beta-Adrenergic Amador Start: 10-27-2020 take 1 tablet by mouth twice daily Metoprolol Tartrate 25 mg tablet Active 25 mg PO TWICE A DAY October 27, 2020 1:00am Multivitamin preparation (10 sources) Start: 03-27-2021 take 1 tablet by mouth once daily Multivitamin Active 1 TABLET PO DAILY March 27, 2021 8:47am Start: 03-27-2021 take 1 tablet by andrew th once daily Multivitamin Active 1 TABLET PO DAILY March 26, 2021 11:00pm Start: 03-27-2021 take 1 tablet by andrew th once daily Multivitamin Active 1 TABLET PO DAILY March 27, 2021 12:00am Start: 11-29-2018 End: 10-27-2020 take 1 tablet by mouth once daily Multivitamin Discontinued 1 TABLET PO DAILY November 29, 2018 10:29am October 27, 2020 4:15pm Start: 11-29-2018 End: 10-27-2020 take 1 tablet by mouth once daily Multivitamin Discontinued 1 TABLET PO DAILY November 28, 2018 11:00pm October 27, 2020 3:15pm Start: 11-29-2018 End: 10-27-2020 take 1 tablet by mouth once daily Multivitamin Discontinued 1 TABLET PO DAILY November 29, 2018 12:00am October 27, 2020 4:15pm Multivitamin Tablet (2 sources) Start: 03-27-2021 Multivitamin T ablet Active 1 {tbl} PO DAILY March 27, 2021 12:00am ubidecarenone 100 mg oral capsule (1 source) Start: 03-04-2025 Coenzyme Q10 ( Co Q-10) 100 mg capsule Active 300 mg PO DAILY March 04, 2025 12:00am Completed/Discontinued Medications Medication Drug Class(es) Dates Sig (Normalized) Sig (Original) amoxicillin 875 mg / clavulanate 125 mg oral tablet (7 sources) Penicillin-class Antibacterial Start: 03-27-2021 End: 08-17-2021 take 1 tablet by mouth every twelve hours Amoxicillin-Pot Clavulanate 875 MG tablet Discontinued 875 mg PO Q12H 20 0 March 27, 2021 12:00am August 17, 2021 4:34pm benzonatate 200 mg oral capsule (3 sources) Non-narcotic Antitussive Start: 08-08-2023 End: 09-12-2023 take 1 capsule by mouth three times daily as needed for cough Benzonatate 200 mg capsule Discontinued 200 mg PO THREE TIMES A DAY as needed for cough 14 0 August 08, 2023 1:00am September 12, 2023 3:12pm Ca Carb-Ca Gluc-Mg Ox-Mg Gluco (Calcium Magnesium) 500 mg calcium -250 mg Tablet (5 sources) Start: 03-27-2021 End: 09-12-2023 take 1 tablet by mouth once daily Ca Carb-Ca Gluc-Mg Ox-Mg Gluco (Calcium Magnesium) 500 mg calcium -250 mg Tablet Discontinued 1 TABLET PO DAILY March 27, 2021 7:50am September 12, 2023 2:13pm Start: 03-27-2021 take 1 tablet by andrew th once daily Ca Carb-Ca Gluc-Mg Ox-Mg Gluco (Calcium Magnesium) 500 mg calcium -250 mg Tablet Active 1 TABLET PO DAILY March 27, 2021 7:50am Start: 03-27-2021 take 1 tablet by andrew th once daily Ca Carb-Ca Gluc-Mg Ox-Mg Gluco (Calcium Magnesium) 500 mg calcium -250 mg Tablet Active 1 TABLET PO DAILY March 27, 2021 8:50am Calcium Carb,Gluc-Mag Gluc,Ox (Calcium Magnesium) 500 mg calcium -250 mg Tablet (2 sources) Start: 03-27-2021 End: 09-12-2023 Calcium Carb,Gluc-Mag Gluc,Ox (Calcium Magnesium) 500 mg calcium -250 mg Tablet Discontinued 1 {tbl} PO DAILY March 27, 2021 8:50am September 12, 2023 3:13pm calcium-magnesium 300 mg-300 mg tablet (5 sources) Start: 11-29-2018 End: 03-27-2021 take 1 tablet by mouth once daily calcium-magnesium 300 mg-300 mg tablet Discontinued 1 TABLET PO DAILY November 29, 2018 10:25am March 27, 2021 8:50am Start: 11-29-2018 End: 03-27-2021 take 1 tablet by mouth once daily calcium-magnesium 300 mg-300 mg tablet Discontinued 1 TABLET PO DAILY November 28, 2018 11:00pm March 27, 2021 7:50am Start: 11-29-2018 End: 03-27-2021 take 1 tablet by mouth once daily calcium-magnesium 300 mg-300 mg tablet Discontinued 1 TABLET PO DAILY November 29, 2018 12:00am March 27, 2021 8:50am Calcium-Magnesium 300-300 mg tablet (2 sources) Start: 11-29-2018 End: 03-27-2021 Calcium-Magnesium 300-300 mg tablet Discontinued 1 {tbl} PO DAILY November 29, 2018 12:00am March 27, 2021 8:50am chlorthalidone 25 mg oral tablet (7 sources) Thiazide-like Diuretic Start: 10-27-2020 End: 03-04-2025 take 1 tablet by mouth once daily Chlorthalidone 25 mg tablet Discontinued 25 mg PO DAILY October 27, 2020 1:00am March 04, 2025 2:46pm clindamycin 300 mg oral capsule (2 sources) Lincosamide Antibacterial Start: 12-13-2024 End: 03-04-2025 take 1 capsule by mouth every six hours Clindamycin Hcl (Cleocin Hcl) 300 mg capsule Discontinued 300 mg PO EVERY 6 HOURS 28 7 0 December 13, 2024 12:00am March 04, 2025 2:46pm cyclobenzaprine hydrochloride 10 mg oral tablet (7 sources) Muscle Relaxant Start: 11-09-2018 End: 10-27-2020 take 1 tablet by mouth three times daily as needed for pain Cyclobenzaprine 10 MG tablet Discontinued 10 mg PO 3 TIMES DAILY NEEDED as needed for Pain November 09, 2018 1:00am October 27, 2020 4:15pm dexamethasone 6 mg oral tablet (3 sources) Corticosteroid Start: 08-08-2023 End: 01-08-2024 take 1 tablet by mouth once daily Dexamethasone 6 mg tablet Discontinued 6 mg PO DAILY 5 0 August 08, 2023 1:00am September 12, 2023 3:12pm etodolac 400 mg oral tablet (6 sources) Nonsteroidal Anti-inflammatory Drug Start: 03-24-2022 End: 09-12-2023 take 1 tablet by mouth twice daily Etodolac 400 mg tablet Discontinued 400 mg PO TWICE A DAY March 24, 2022 12:00am September 12, 2023 3:12pm gabapentin 300 mg oral capsule (7 sources) Anti-epileptic Agent Start: 11-09-2018 End: 08-17-2021 take 1 capsule by mouth at bedtime Gabapentin 300 MG capsule Discontinued 300 mg PO AT BEDTIME November 09, 2018 1:00am August 17, 2021 4:34pm gemfibrozil 600 mg oral tablet (7 sources) Peroxisome Proliferator Receptor alpha Agonist Start: 07-05-2019 End: 10-27-2020 take 1 tablet by mouth twice daily Gemfibrozil 600 mg tablet Discontinued 600 mg PO TWICE A DAY July 05, 2019 12:00am October 27, 2020 4:15pm hydroCHLOROthiazide 25 mg oral tablet (20 sources) Thiazide Diuretic Start: 11-29-2018 End: 10-27-2020 take 1 tablet by mouth once daily Hydrochlorothiazide 25 mg tablet Discontinued 25 mg PO DAILY 90 January 10, 2020 8:06am October 27, 2020 4:15pm Start: 11-29-2018 End: 11-29-2018 take 2 tablets by mouth once daily Hydrochlorothiazide 12.5 mg tablet Discontinued 25 mg PO DAILY November 29, 2018 10:51am November 29, 2018 10:54am Start: 11-29-2018 End: 11-29-2018 take 25 mg by mouth once daily Hydrochlorothiazide Discontinued 25 MG PO DAILY November 29, 2018 9:51am November 29, 2018 9:54am Start: 11-14-2018 End: 11-29-2018 take 1 tablet by mouth once daily Hydrochlorothiazide 12.5 mg tablet Discontinued 12.5 mg PO DAILY 30 November 14, 2018 12:00am November 29, 2018 10:52am hydroCHLOROthiazide 12.5 mg / losartan potassium 50 mg oral tablet (7 sources) Thiazide Diuretic, Angiotensin 2 Receptor Amador Start: 11-14-2018 End: 11-14-2018 Losartan-Hydrochlorothiazide 50-12.5 mg tablet Discontinued 1 {tbl} PO DAILY 04 08November 14, 2018 12:00am November 14, 2018 11:09am Start: 11-14-2018 End: 11-14-2018 take 1 tablet by mouth once daily Losartan-Hydrochlorothiazide Discontinue d 1 TABLET PO DAILY November 13, 2018 11:00pm November 14, 2018 10:09am hydrOXYzine hydrochloride 50 mg oral tablet (14 sources) Antihistamine Start: 08-17-2021 End: 03-04-2025 take 2 tablets by mouth at bedtime Hydroxyzine Hcl 50 mg tablet Discontinued 100 mg PO AT BEDTIME August 17, 2021 4:34pm March 04, 2025 2:46pm Start: 08-17-2021 take 100 mg by mouth at bedtim e Hydroxyzine Hcl Active 100 MG PO AT BEDTIME August 17, 2021 3:34pm Start: 10-27-2020 End: 08-17-2021 take 1 tablet by mouth at bedtime Hydroxyzine Hcl 50 mg tablet Discontinued 50 mg PO AT BEDTIME October 27, 2020 1:00am August 17, 2021 4:36pm Lidocaine (7 sources) Antiarrhythmic, Amide Local Anesthetic Start: 10-10-2021 End: 11-17-2021 Lidocaine Hcl (Lidocaine Viscous) 2 % solution Discontinued 5 mL MUCOUS MEM Q4H as needed for pain 100 0 October 10, 2021 8:24pm November 17, 2021 3:09pm Start: 10-10-2021 End: 11-17-2021 Lidocaine Hcl (Lidocaine Vis cous) 2 % solution Discontinued 5 mL MUCOUS MEM Q4H as needed for pain 100 October 10, 2021 8:24pm November 17, 2021 3:09pm Start: 10-10-2021 End: 11-17-2021 Lidocaine Hcl (Lidocaine Vis cous) 2 % solution Discontinued 5 ML MUCOUS MEM Q4H October 10, 2021 7:24pm November 17, 2021 2:09pm Start: 10-10-2021 End: 11-17-2021 Lidocaine Hcl (Lidocaine Vis cous) 2 % solution Discontinued 5 ML MUCOUS MEM Q4H 100 October 10, 2021 8:24pm November 17, 2021 3:09pm meclizine hydrochloride 25 mg oral tablet (7 sources) Antiemetic Start: 08-12-2021 End: 11-17-2021 take 1 tablet by mouth three times daily as needed for dizziness Meclizine 25 mg tablet Discontinued 25 mg PO THREE TIMES A DAY as needed for dizziness 14 0 August 12, 2021 3:40pm November 17, 2021 3:10pm Multivitamin tablet (2 sources) Start: 11-29-2018 End: 10-27-2020 Multivitamin tablet Discontinued 1 {tbl} PO DAILY November 29, 2018 12:00am October 27, 2020 4:15pm naproxen 500 mg oral tablet (14 sources) Nonsteroidal Anti-inflammatory Drug Start: 08-17-2021 End: 09-12-2023 take 1 tablet by mouth twice daily as needed Naproxen 500 mg tablet Discontinued 500 mg PO TWICE A DAY as needed August 17, 2021 4:51pm September 12, 2023 3:11pm nortriptyline 50 mg oral capsule (14 sources) Tricyclic Antidepressant Start: 08-17-2021 take 100 mg by mouth at bedtime Nortriptyline Active 100 MG PO AT BEDTIME August 17, 2021 3:35pm Start: 10-27-2020 End: 03-04-2025 take 1 capsule by mouth at bedtime Nortriptyline 50 mg capsule Discontinued 100 mg PO AT BEDTIME August 17, 2021 4:35pm March 04, 2025 2:46pm nystatin [id number] unt/ml oral suspension (7 sources) Polyene Antifungal Start: 10-10-2021 End: 11-17-2021 Nystatin 100,000 unit/mL suspension Discontinued [id number] U PO EVERY 6 HOURS 20 5 0 October 10, 2021 1:00am November 17, 2021 3:11pm administer 1/2 of dose in each side of the mouth Dalton-3 Fatty Acids-Fish Oil (Fish Oil) 300-1,000 mg capsule (7 sources) Start: 11-29-2018 End: 08-17-2021 take 2 capsules by mouth once daily Dalton-3 Fatty Acids-Fish Oil (Fish Oil) 300-1,000 mg capsule Discontinued 2 CAP PO DAILY November 29, 2018 10:29am August 17, 2021 4:33pm Start: 11-29-2018 End: 08-17-2021 Dalton-3 Fatty Acids-Fish Oil (Fish Oil) 300-1,000 mg capsule Discontinued 2 NMA PO DAILY November 29, 2018 12:00am August 17, 2021 4:33pm Start: 11-29-2018 End: 08-17-2021 take 2 capsules by mouth once daily Dalton-3 Fatty Acids-Fish Oil (Fish Oil) 300-1,000 mg capsule Discontinued 2 CAP PO DAILY November 28, 2018 11:00pm August 17, 2021 3:33pm Start: 11-29-2018 End: 08-17-2021 take 2 capsules by mouth once daily Dalton-3 Fatty Acids-Fish Oil (Fish Oil) 300-1,000 mg capsule Discontinued 2 CAP PO DAILY November 29, 2018 12:00am August 17, 2021 4:33pm oxyCODONE hydrochloride 5 mg oral tablet (3 sources) Opioid Agonist Start: 09-22-2023 End: 03-04-2025 take 5-10 mg by mouth every six hours as needed for pain Oxycodone 5 mg tablet Discontinued 5 - 10 mg PO EVERY 6 HOURS as needed for pain 15 5 0 September 22, 2023 March 04, 2025 2:47pm Umbilical hernia Umbilical hernia without obstruction or gangrene potassium chloride 20 meq extended release oral tablet (7 sources) Start: 10-27-2020 End: 09-12-2023 take 2 tablets by mouth once daily Potassium Chloride 20 mEq tablet extended release Discontinued 40 meq PO DAILY October 27, 2020 1:00am September 12, 2023 3:13pm Start: 10-27-2020 End: 09-12-2023 take 40 mEq by mouth once daily Potassium Chloride Discontinued 40 MEQ PO DAILY October 27, 2020 12:00am September 12, 2023 2:13pm sucralfate 100 mg/ml oral suspension (7 sources) Aluminum Complex Start: 10-10-2021 End: 11-17-2021 take 1 mL by mouth every four hours as needed for pain Sucralfate (Carafate) 100 mg/mL suspension Discontinued 5 mL PO Q4H as needed for pain 100 0 October 10, 2021 8:28pm November 17, 2021 3:11pm traMADol hydrochloride 50 mg oral tablet (7 sources) Opioid Agonist Start: 09-18-2016 End: 05-18-2018 take 1 tablet by mouth every six hours as needed for pain Tramadol 50 MG tablet Discontinued 50 mg PO EVERY 6 HOURS NEEDED as needed for Pain September 18, 2016 1:00am May 18, 2018 5:35pm Problems Active Problems Problem Classification Problem Date Documented Da te Episodic/Chronic Abdominal hernia (11 sources) Ischiatic hernia; Translations: [Other specified abdominal hernia without obstruction or gangrene] 09-19-2016 Episodic Acute myocardial infarction (1 source) Myocardial infarction; Translations: [Non-ST elevation (NSTEMI) myocardial infarction] 03-04-2025 Chronic Cardiac dysrhythmias (7 sources) Ventricular premature beats; Translations: [Ventricular premature depolarization] 08-20-2021 Chronic Conditions associated with dizziness or vertigo (7 sources) Dizziness; Translations: [Dizziness and giddiness] 08-20-2021 Episodic Coronary atherosclerosis and other heart disease (16 sources) History of myocardial infarction; Translations: [Old myocardial infarction] Onset: 07-22-2009 Chronic Disorders of lipid metabolism (9 sources) Hyperlipidemia; Translations: [Hyperlipidemia, unspecified] Chronic Essential hypertension (14 sources) Hypertensive disorder; Translations: [Essential (primary) hypertension] Chronic Headache; including migraine (7 sources) Headache; Translations: [Headache] 08-20-2021 Episodic Heart valve disorders (7 sources) Ventricular bigeminy; Translations: [Other abnormalities of heart beat] 08-20-2021 Episodic Nonspecific chest pain (1 source) Chest pain; Translations: [Chest pain, unspecified] 03-04-2025 Episodic Open wounds of extremities (7 sources) Laceration of foot; Translations: [Laceration without foreign body, right foot, initial encounter] 12-28-2021 Episodic Other aftercare (3 sources) History of repair of umbilical hernia; Translations: [Encounter for follow-up examination after completed treatment for conditions other than malignant neoplasm] 10-06-2023 Episodic Other aftercare (1 source) Encounter for follow-up examination after completed treatment for conditions other than malignant neoplasm; Translations: [Follow-up examination, following other surgery] 10-06-2023 Episodic Other nutritional; endocrine; and metabolic disorders (7 sources) Body mass index 40+ - severely obese; Translations: [Morbid (severe) obesity due to excess calories] 12-20-2021 Chronic Other nutritional; endocrine; and metabolic disorders (1 source) Morbid (severe) obesity due to excess calories; Translations: [Morbid obesity] 09-12-2023 Chronic Other upper respiratory infections (7 sources) Pharyngitis; Translations: [Acute pharyngitis, unspecified] 03-27-2021 Episodic Residual codes; unclassified (7 sources) History of chest pain; Translations: [Personal history of other specified conditions] 09-29-2015 Episodic Residual codes; unclassified (7 sources) Family history of ischemic heart disease; Translations: [Family history of ischemic heart disease and other diseases of the circulatory system] 11-12-2018 Episodic Spondylosis; intervertebral disc disorders; other back problems (7 sources) Lumbar facet joint pain; Translations: [Spondylosis without myelopathy or radiculopathy, lumbar region] 01-14-2021 Chronic Spondylosis; intervertebral disc disorders; other back problems (7 sources) Lumbar radiculopathy; Translations: [Radiculopathy, lumbar region] 05-18-2018 Episodic Sprains and strains (7 sources) Low back strain; Translations: [Strain of muscle, fascia and tendon of lower back, initial encounter] 05-19-2018 Episodic Substance-related disorders (7 sources) Tobacco user; Translations: [Nicotine dependence, unspecified, uncomplicated] 11-12-2018 Chronic Superficial injury; contusion (3 sources) Blister of foot; Translations: [Blister (nonthermal), unspecified lesser toe(s), initial encounter] Onset: 12-19-2024 12-13-2024 Episodic Past or Other Problems Problem Classification Problem Date Documented Da te Episodic/Chronic Coronary atherosclerosis and other heart disease (9 sources) Stented coronary artery; Translations: [Presence of coronary angioplasty implant and graft] Onset: 07-22-2009 Episodic Comment on above: [facility] post [place], proxim al ramus Unclassified (6 sources) right elbow surgery 03-25-2022 Comment on above: 02/20/2019 Results Test Name Value Interpretation Reference Range Facility Absolute lymphocyte countOrd ered By: Anselmo Rios on 03-04-2025 Lymphocytes Auto (Unsp spec) [#/Vol] 1.63 10*3/uL 0.83-4.51 [facility] Absolute neutrophil countOrd ered By: Anselmo Rios on 03-04-2025 Neutrophils (Bld) [#/Vol] 5.0 10*3/uL 2.0-7.7 [facility] Activated partial thrombopla stin time (aPTT) in platelet poor plasma by coagulation aOrdered By: Anselmo Rios on 03-04-2025 aPTT Coag (PPP) [Time] 23.0 s Low 24.1-36.2 [facility] Anion gap in Serum or Plasma Ordered By: Anselmo Rios on 03-04-2025 Anion gap [Moles/Vol] 11 mmol/L 5-15 [facility] Automated lymphocyte count a s percentage of total leukocytesOrdered By: Anselmo Rios on 03-04-2025 Lymphocytes/100 WBC Auto (Unsp spec) 22.4 % 19-41 [facility] BUN/creatinine ratioOrdered By: Anselmo Rios on 03-04-2025 Urea nitrogen/Creatinine [Mass ratio] 11.3 mg/mg 10-20 [facility] Basic metabolic panel with i onized calcium measurementon 03-04-2025 Basic metabolic 2008 panel with ionized calcium [facility] Basophil percentageOrdered B y: Anselmo Rios on 03-04-2025 Basophils/100 WBC (Bld) 1.1 % High 0-1 [facility] Carbon dioxide, total [Moles /volume] in Central venous bloodOrdered By: Anselmo Rios on 03-04-2025 CO2 [Moles/Vol] 22.5 mmol/L 21.0-32.0 [facility] Chloride assayOrdered By: Andre Rios on 03-04-2025 Chloride [Moles/Vol] 102 mmol/L 98-108 [facility] Eosinophil percentageOrdered By: Anselmo Rios on 03-04-2025 Eosinophils/100 WBC (Bld) 1.4 % 0-5 [facility] Erythrocyte distribution wid th ratioOrdered By: Anselmo Rios on 03-04-2025 Erythrocyte distribution width (RBC) [Ratio] 13.2 % 11.6-14.6 [facility] Erythrocyte distribution wid th standard deviationOrdered By: Anselmo Rios on 03-04-2025 Erythrocyte distribution width (RBC) [Ratio] 41.0 fl 35.1-43.9 [facility] Glomerular filtration rate ( GFR) estimation/1.73 sq m using serum, plasma, or whole bOrdered By: Anselmo Rios on 03-04-2025 GFR/1.73 sq M.predicted among non-blacks MDRD (S/P/Bld) [Vol rate/Area] 95 mL/min/{1.73_m2} >60 [facility] Comment on above: mL/min/1.73m2 CKD-EP I Creatinine Equation (2020) Hematocrit Auto (Bld) [Volum e fraction]Ordered By: Anselmo Rios on 03-04-2025 Hematocrit (Bld) [Volume fraction] 45.7 % 40-54 [facility] Hemoglobin measurementOrdere d By: Anselmo Rios on 03-04-2025 Hemoglobin (Bld) [Mass/Vol] 16.1 g/dL 13.0-16.5 [facility] Immature granulocytes/100 WB C Auto (Bld)Ordered By: Anselmo Rios on 03-04-2025 Immature granulocytes/100 WBC (Bld) 0.600 % 0.0-0.9 [facility] Comment on above: IG% - Immature Granu locytes (promyelocytes, myelocytes and metamyelocytes) > 1% indicates that a LEFT SHIFT is Present. International normalized rat io (INR) calculationOrdered By: Anselmo Rios on 03-04-2025 INR Coag (Bld) [Relative time] 1.0 {INR} [facility] MCV (mean corpuscular volume ) determinationOrdered By: Anselmo Rios on 03-04-2025 MCV (RBC) [Entitic vol] 86.2 fL 80-94 [facility] Mean corpuscular hemoglobin (MCH) determinationOrdered By: Anselmo Rios on 03-04-2025 MCH (RBC) [Entitic mass] 30.4 pg 27.0-32.0 [facility] Mean corpuscular hemoglobin concentration (MCHC) determinationOrdered By: Anselmo Rios on 03-04-2025 MCHC (RBC) [Mass/Vol] 35.2 g/dL 32-36 [facility] Mean platelet volume determi nationOrdered By: Anselmo Rios on 03-04-2025 Platelet mean volume (Bld) [Entitic vol] 10.5 fL 6.2-12.0 [facility] Monocyte percentageOrdered B y: Anselmo Rios on 03-04-2025 Monocytes/100 WBC (Bld) 5.5 % 0-10 [facility] Neutrophil percentageOrdered By: Anselmo Rios on 03-04-2025 Neutrophils/100 WBC (Bld) 69.0 % 47-70 [facility] Nucleated red blood cell per centageOrdered By: Anselmo Rios on 03-04-2025 Nucleated RBC/100 WBC (Bld) [Ratio] 0 % 0-5 [facility] Platelet countOrdered By: Andre Rios on 03-04-2025 Platelets (Bld) [#/Vol] 322 10*3/uL 150-450 [facility] Potassium measurement (mass/ volume)Ordered By: Anselmo Rios on 03-04-2025 Potassium (Unsp spec) [Mass/Vol] 4.0 mmol/L 3.3-5.1 [facility] Prothrombin timeOrdered By: Anselmo Rios on 03-04-2025 PT Coag (PPP) [Time] 13.4 s 11.7-14.9 [facility] RBC Auto (Bld) [#/Vol]Ordere d By: Anselmo Rios on 03-04-2025 RBC (Bld) [#/Vol] 5.30 10*6/uL 4.6-6.2 [facility] Serum creatinine measurement (mass/volume)Ordered By: Anselmo Rios on 03-04-2025 Creatinine [Mass/Vol] 0.95 mg/dL 0.70-1.20 [facility] Serum glucose measurement (m ass/volume)Ordered By: Anselmo Rios on 03-04-2025 Glucose [Mass/Vol] 98 mg/dL 70-99 [facility] Serum or plasma calcium rigoberto urement (mass/volume)Ordered By: Anselmo Rios on 03-04-2025 Calcium [Mass/Vol] 8.4 mg/dL 7.6-11.0 [facility] Serum or plasma urea nitroge n measurement (mass/volume)Ordered By: Anselmo Rios on 03-04-2025 Urea nitrogen [Mass/Vol] 11 mg/dL 4-19 [facility] Sodium levelOrdered By: Jaydon Rios on 03-04-2025 Sodium [Moles/Vol] 136 mmol/L 133-145 [facility] Troponin T.cardiac [Mass/vol ume] in Serum or Plasma by High sensitivity methodOrdered By: Anselmo Rios on 03-04-2025 Troponin T.cardiac High sensitivity method [Mass/Vol] 34 ng/L High <22 [facility] Troponin T.cardiac [Mass/vol ume] in Serum or Plasma by High sensitivity methodon 03-04-2025 Troponin T.cardiac High sensitivity method [Mass/Vol] [facility] White blood cell (WBC) count Ordered By: Anselmo Rios on 03-04-2025 WBC (Bld) [#/Vol] 7.3 10*3/uL 4.4-11.0 [facility] Emergency Department Summary on 12-13-2024 Emergency Department Summary [facility] Medical Records Department [address] [place] [address] Emergency Department Summary 12/13/24 MR#: [id number] Acct: [id number] Name: ARGELIA COPELAND Rep #: [id number] : 1970 54 From: Wero Santiago DO PCP: Dr. Eric Odom MD Status:REG ER Location: ED HPI History of Present Illness Chief Complaint: Wound Narrative Narrative: Chief complaint and HPI: Right first toe blister. 54-year-old male with past medical history of CAD, HTN, HLD, lumbar radiculopathy presents for evaluation of right first toe blister. Patient states that he recently bought new work boots. He states since wearing them the past several days he has developed blisters on his feet. He developed blisters to the bilateral first toes as well as the right heel. He states yesterday evening the blister on his right first toe broke open with clear drainage. He states it is mildly swollen. He is concerned that it may be infected which is why he presents today. He denies any fever, chills, nausea, vomiting. Denies any significant pain where the blisters are located. Not diabetic. Review of systems: See HPI Medications: As listed on the chart Allergies: As listed on the chart PFSH: Per chart Vital signs: As listed on the chart. Reviewed. Physical exam: Gen: A O x3, NAD Head: Normocephalic, atraumatic Eyes: No sclera icterus, conjunctiva clear ENT: Moist mucous membranes CV: Regular rhythm Resp: Nonlabored respiration Musc: Full ROM, no deformity, patient has a 1.5 x 1 cm open blister to the medial aspect of the right great toe. There is some mild clear drainage without purulence. There is mild swelling and erythema. No warmth, no crepitus, no lymphatic streaking. Nontender to palpation except at the open skin. No swelling or tenderness of the other toes, foot, calf. There is another intact blister on the right heel. There is an intact blister on the left great toe. Good capillary refill. DP/PT pulse plus 2 out of 4. Skin: Warm, dry Neuro: Alert, oriented, grossly intact, sensation intact Psych: Cooperative, appropriate mood and affect [facility] Medical History Wears glasses Cancer Arthritis History of Holter monitoring Normal stress echocardiogram History of stress test Hypertension Cardiology follow-up encounter Anxiety Umbilical hernia Essential hypertension Wears contact lenses Depression History of steroid therapy Chronic pain Shortness of breath on exertion Former smoker Edema Myocardial infarct Hx of echocardiogram Back pain right elbow surgery History of lateral wall myocardial infarction (07/22/09) Atherosclerotic heart disease of [place] coronary artery without angina pectoris HTN (hypertension) Morbid obesity with BMI of 40.0-44.9, adult Tobacco use disorder HLD (hyperlipidemia) Family history of ischemic heart disease Home Medications ???Medication ???Instructions ???Recorded ???Last Taken ???Type aspirin 325 mg tablet 325 mg PO DAILY@0800 11/09/1809/05 History chlorthalidone 25 mg tablet 25 mg PO DAILY 10/27/20 01/02/21 1 0:00 History metoprolol tartrate 25 mg tablet 25 mg PO BID 10/27/20 09/22/23 His tory multivitamin 1 tab PO DAILY 03/27/21 Unknown Hi story glucosamine HCl 1,500 mg tablet 1,000 mg PO DAILY 08/17/21 Unknown History hydroxyzine HCl 50 mg tablet 100 mg PO QHS 08/17/21 Unknown His tory nortriptyline 50 mg capsule 100 mg PO QHS 08/17/21 Unknown His tory losartan 100 mg tablet 100 mg PO DAILY 11/17/21 09/22/23 History amlodipine 10 mg tablet (Norvasc) 10 mg PO DAILY 09/12/23 09/22/23 History duloxetine 30 mg capsule,delayed 30 mg PO DAILY 09/12/23 Unknown Hi story release (Cymbalta) ashwagandha root extract 500 mg 1,300 mg PO DAILY 09/16/23 Unknown History capsule magnesium 200 mg tablet 400 mg PO DAILY 09/16/23 Unknown H istory oxycodone 5 mg tablet 5 - 10 mg (1 - 2 x 5 mg) PO Q6H Unknown Rx PRN pain 5 days #15 tabs Allergy/AdvReac Type Severity Reaction Status Date / Time bee venom protein (honey bee) Allergy Swelling Verified 12/13/24 08:22 atorvastatin AdvReac Severe Myalgias Verified 12/13/24 08:22 cephalexin (From Keflex) AdvReac GIVES ME Verified 12/13/24 08:22 [employer] shellfish derived AdvReac Nausea/Vom/ Verified 12/13/24 08:22 Diarrhea Family History Father , Age 57 of [place], had [place]/CAD at age 39 CAD (coronary artery disease) Myocardial infarction Mother Hypertension Sister Hypertension Surgical History S/P umbilical hernia repair, follow-up exam Hx of surgical procedure History of surgery on arm History of dental surgery Stented coronary dav (more content not included)... Normal [facility] OT D/C of Non Returning Pton 03-27-2024 OT D/C of Non Returning Pt [facility] Occupational Therapy [facility] [address] [place] [address] / REHABILITATION SERVICES DISCHARGE SUMMARY MR#: [id number] Acct: [id number] Name: ARGELIA COPELAND Rep #: [id number] : 1970 54 From: Kelley Tyler Referring Dr.: Dr. Blaine Hall MD Status: RE G RCR Eval Date: Discharge Date: Patient Information Patient Information: ARGELIA COPELAND was seen in my office for initial evaluation on 11/10/23. The following Plan of Care was established for this patient: POC Established Initial Frequency: 2x /Week Initial Duration: 3 Weeks Plan: Dr appointment this date for re check Anticipated Interventions Anticipated Interventions: Strengthening, Scar Care, Massage, Joint Protection/Energy Conservation, Ergonomic Education and Home Program Last Seen Last Seen: This patient was last seen in our office 03/15/24. Pertinent comments regarding their Occupational therapy will appear below: This 54 year old male was seen for OT beginning 11/10/23 for open L radial tunnel release 10/12/23 as well as L carpal tunnel release 10/12/23. pt participated in therapy sessions and began a work conditioning program. pt made gains in ROM as well as strength throughout POC in prep for return to work. discharge at this time as pt returned to doctor since last appointment 03/15/24 and has cancelled remainder of appointments at this time. At this point I will be discontinuing this patient from occupational therapy. I would be happy to see this patient again in the future if found appropriate by the physician. Thank you! Kelley Tyler 03/27/24 1054 CC: Dr. Blaine Hall MD; Dr. Eric Odom MD CK Signed Normal [facility] Re-Evalution OTon 03-15-2024 Re-Evalution OT [facility] Occupational Therapy [facility] [address] [place] [address] [address] [place] [address] / REEVALUATION / MEDICARE RECERTIFICATION OCCUPATIONAL THERAPY MR#: [id number] Acct: [id number] Name: ARGELIA COPELAND Rep #: [id number] : 1970 53 From: Kelley Tyler Referring Dr.: Dr. Blaine Hall MD Status: RE G RCR Insurance: SELF INS [facility] Eval Date: ANTHEM Re-Evaluation Intro: Dr. Blaine Hall MD, It has been my pleasure to treat ARGELIA COPELAND over the last 15 visits for open L radial tunnel release. Please see the progress note below for an update on the occupational therapy plan of care! Subjective Subjective: Pt doing well no new concerns. 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 pounds by discharge -- 80 pounds elbow at 90 from previous 75 90 pounds elbow extended ongoing Goal:: pt will increase L forearm pronation by 15 degrees by discharge GOAL MET pt will improve L forearm supination to 70-75 degrees within 3 weeks 65 degrees ongoing from 60 Goal:: pt will demonstrate 100% accuracy in LUE joint protection and positioning during daily tasks/ hobbies and work related tasks by 3rd session GOAL MET Goal:: pt will increase quick dash score by 3 points by discharge quick dash score this date 25.0 now 9.09 GOAL MET Anticipated Interventions Anticipated Interventions Anticipated Interventions: Strengthening, Scar Care, Massage, Joint Protection/Energy Conservation, Ergonomic Education and Home Program Re-Evaluation Ending Re-evaluation ending: Please do not hesitate to contact me at [phone] by phone or if you have questions or concerns regarding this new plan of care! Sincerely, Kelley Tyler 03/15/24 0923 CC: Dr. Blaine Hall MD; Dr. Eric Odom MD CK Signed For Medicare only, by signing this I certify the plan of care. _ Physicians Signature Date Normal [facility] Re-Evalution OTon 02-09-2024 Re-Evalution OT [facility] Occupational Therapy [facility] [address] [place] [address] / REEVALUATION / MEDICARE RECERTIFICATION OCCUPATIONAL THERAPY MR#: [id number] Acct: [id number] Name: ARGELIA COPELAND Rep #: [id number] : 1970 53 From: Kelley Tyler Referring Dr.: Dr. Blaine Hall MD Status: RE G RCR Insurance: SELF INS [facility] Eval Date: ANTHEM Re-Evaluation Intro: Dr. Blaine Hall MD, It has been my pleasure to treat ARGELIA COPELAND over the last 6 visits for open L radial tunnel release. Please see the progress note below for an update on the occupational therapy plan of care! Subjective Subjective: doing well sore from the other day Objective Objective/Function: pt needs occ rest breaks tolerance increasing. able to perform bike at resistance 4 duration 10 min 5 min forard 5 min backward. 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 by discharge -- currently 75 pounds ongoing Goal:: pt will increase L forearm pronation by 15 degrees by discharge ongoing pt will improve L forearm supination to 70-75 degrees within 3 weeks currently 60 degrees Goal:: pt will demonstrate 100% accuracy in LUE joint protection and positioning during daily tasks/ hobbies and work related tasks by 3rd session goal met Goal:: pt will increase quick dash score by 3 points by discharge quick dash score this date 25.0 Anticipated Interventions Anticipated Interventions Anticipated Interventions: Strengthening, Scar Care, Massage, Joint Protection/Energy Conservation, Ergonomic Education and Home Program Re-Evaluation Ending Re-evaluation ending: Please do not hesitate to contact me at [phone] by phone or if you have questions or concerns regarding this new plan of care! Sincerely, Kelley Tyler 02/09/24 1134 CC: Dr. Blaine Hall MD; Dr. Eric Odom MD CK Signed For Medicare only, by signing this I certify the plan of care. _ Physicians Signature Date Normal [facility] Re-Evalution OTon 12-27-2023 Re-Evalution OT [facility] Occupational Therapy [facility] [address] [place] [address] / REEVALUATION / MEDICARE RECERTIFICATION OCCUPATIONAL THERAPY MR#: [id number] Acct: [id number] Name: ARGELIA COPELAND Rep #: [id number] : 1970 53 From: Angelica Gordon OTR/Valencia, T Referring Dr.: Dr. Blaine Hall MD Status: RE G RCR Insurance: SELF INS [facility] Evia Date: ANTHEM Re-Evaluation Intro: Dr. Blaine Hall MD, It has been my pleasure to treat ARGELIA COPELAND over the last 13 visits for open L radial tunnel release. Please see the progress note below for an update on the occupational therapy plan of care! Subjective Subjective: pt arrives to session 10 weeks and 6 days from radial nerve release of left dorsal forearm. Pt is happy his pain is gone but feels he has some limitations of muscle fatigue with lifting/ grasping tasks. Objective Objective/Function: pt states he does continue with his end rage stretching of his left elbow in hopes to continue to make gains with his ROM. ( extension) pt is progressing with his strength but continues to feel left forearm fatigue with use. Pt is left hand dominate states he needs to stop and rest as needed but has concerns when he returns to work that resting will not be an option. left elbow ROM -25/135 ( this is a decrease of 10 loss from prior measurements. left forearm supination 60* right is 65* pts Pronation is WNL. 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 please re-eval and advise as needed. Plan Plan Plan: pt to return to for further assessment. 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 pounds by discharge -- currently 75 pounds ongoing Goal:: pt will increase L forearm pronation by 15 degrees by discharge ongoing pt will improve L forearm supination to 70-75 degrees within 3 weeks currently 60 degrees Goal:: pt will demonstrate 100% accuracy in LUE joint protection and positioning during daily tasks/ hobbies and work related tasks by 3rd session goal met Goal:: pt will increase quick dash score by 3 points by discharge quick dash score this date 25.0 Anticipated Interventions Anticipated Interventions Anticipated Interventions: Strengthening, Scar Care, Massage, Joint Protection/Energy Conservation, Ergonomic Education and Home Program Re-Evaluation Ending Re-evaluation ending: Please do not hesitate to contact me at [phone] by phone or if you have questions or concerns regarding this new plan of care! Sincerely, Angelica Gordon, MAIA/Valencia, T 12/27/23 1401 CC: Dr. Blaine Hall MD; Dr. Eric Odom MD TANI Signed For Medicare only, by signing this I certify the plan of care. _ Physicians Signature Date Normal [facility] Basophil percentageOrdered B y: Eric Odom on 11-04-2023 Chloride [Moles/Vol] 104 mmol/L 98-107 [facility] Cholesterol [Mass/Vol] 232 mg/dL <200 [facility] Comment on above: <200 mg/dL Desirable 200-240 mg/dL Borderline >240 mg/dL High Risk Glucose [Mass/Vol] 114 mg/dL 74-106 [facility] Comment on above: Fasting Glucose resu lt from 100 to 125 mg/dL suggests IMPAIRED HOMEOSTASIS per A.D.A. criteria. Potassium [Moles/Vol] 3.5 mmol/L 3.5-5.1 [facility] Sodium [Moles/Vol] 137 mmol/L 136-145 [facility] Triglyceride [Mass/Vol] 239 mg/dL <199 [facility] Comment on above: The drugs N-Acetylcy steine and Metamizole may falsely depress this assay.Serum Triglycerides Reference Interval Normal <150 mg/dL Borderline high 150 - 199 mg/dL High 200 - 499 mg/dL Very High > or = 500 mg/dL Laboratory - Chemistry and C hemistry - challengeOrdered By: Eric Odom on 11-04-2023 Cholesterol in HDL [Mass/Vol] 39 mg/dL >40 [facility] Comment on above: The drugs N-Acetylcy steine and Metamizole may falsely depress this assay. Reference Range HDL <40 mg/dL Low HDL Cholesterol HDL >or= 60 mg/dL High HDL Cholesterol Cholesterol in LDL [Mass/Vol] 145 mg/dL 0-130 [facility] CO2 [Moles/Vol] 25.0 mmol/L 21.0-32.0 [facility] Urea nitrogen/Creatinine [Mass ratio] 15.7 mg/mg 10-20 [facility] No Panel InformationOrdered By: Eric Odom on 11-04-2023 Estimated GFR (MDRD) Amer 98 mL/min >60 [facility] Comment on above: GFR Calc Estimated GFR (MDRD) Non-Af Amer 81 mL/min >60 [facility] Comment on above: Non- GFR Calc VLDL Cholesterol 48 mg/dL 5-40 [facility] Serum or plasma calcium rigoberto urement (mass/volume)Ordered By: Eric Odom on 11-04-2023 Calcium [Mass/Vol] 9.0 mg/dL 8.5-10.1 [facility] Serum or plasma creatinine m easurement (mass/volume)Ordered By: Eric Odom on 11-04-2023 Creatinine [Mass/Vol] 1.02 mg/dL 0.70-1.30 [facility] Comment on above: The validity of the calculated GFR & GFRAA in patients over 70 years has not been determined. Clinical correlation is essential. Serum or plasma thyroid stim ulating hormone (TSH) measurement (units/volume)Ordered By: Eric Odom on 11-04-2023 TSH Qn 1.63 uIU/mL 0.358-3.74 [facility] Serum or plasma urea nitroge n measurement (mass/volume)Ordered By: Eric Odom on 11-04-2023 Urea nitrogen [Mass/Vol] 16 mg/dL 7-18 [facility] Thin prep Papanicolaou smear with manual screeningOrdered By: Eric Odom on 11-04-2023 Thin prep Papanicolaou smear with manual screening 8 5-15 [facility] Whole blood hemoglobin A1c/t otal hemoglobin ratio (mass fraction)Ordered By: Eric Odom on 11-04-2023 HbA1c (Bld) [Mass fraction] 6.2 % 3.8-5.6 [facility] Comment on above: Normal < 5.7 % Predi abetic 5.7 - 6.4 % Diabetic >or= 6.5 % Please note range changes. Basophil percentageOrdered B y: Jaylan Kaur on 09-20-2023 Chloride [Moles/Vol] 106 mmol/L 98-107 [facility] Glucose [Mass/Vol] 132 mg/dL 74-106 [facility] Comment on above: Fasting Glucose resu lt greater than or equal to 126 mg/dL suggests DIABETES MELLITUS per A.D.A. criteria. Hemoglobin (Bld) [Mass/Vol] 15.5 g/dL 13.0-16.5 [facility] Potassium [Moles/Vol] 3.6 mmol/L 3.5-5.1 [facility] Sodium [Moles/Vol] 139 mmol/L 136-145 [facility] WBC (Bld) [#/Vol] 9.2 10*3/uL 4.4-11.0 [facility] Determination of erythrocyte mean corpuscular volume (MCV)Ordered By: Jaylan Kaur on 09-20-2023 MCV (RBC) [Entitic vol] 85.4 fL 80-94 [facility] Erythrocyte distribution wid th ratioOrdered By: Jaylan Kaur on 09-20-2023 Erythrocyte distribution width (RBC) [Ratio] 13.3 % 11.6-14.6 [facility] Erythrocyte distribution wid th standard deviationOrdered By: Jaylan Kaur on 09-20-2023 Erythrocyte distribution width (RBC) [Entitic vol] 41.1 fL 35.1-43.9 [facility] Hematocrit Auto (Bld) [Volum e fraction]Ordered By: Jaylan Kaur on 09-20-2023 Hematocrit (Bld) [Volume fraction] 45.0 % 40-54 [facility] Laboratory - Chemistry and C hemistry - challengeOrdered By: Jaylan Kaur on 09-20-2023 CO2 [Moles/Vol] 25.0 mmol/L 21.0-32.0 [facility] Urea nitrogen/Creatinine [Mass ratio] 14.7 mg/mg 10-20 [facility] Laboratory - Hematology and Cell countsOrdered By: Jaylan Kaur on 09-20-2023 MCH (RBC) [Entitic mass] 29.4 pg 27.0-32.0 [facility] MCHC (RBC) [Mass/Vol] 34.4 g/dL 32-36 [facility] Platelets (Bld) [#/Vol] 355 10*3/uL 150-450 [facility] No Panel InformationOrdered By: Jaylan Kaur on 09-20-2023 Estimated GFR (MDRD) Amer 91 mL/min >60 [facility] Comment on above: GFR Calc Estimated GFR (MDRD) Non-Af Amer 75 mL/min >60 [facility] Comment on above: Non- GFR Calc Platelet mean volume Travis-Ec ker (Bld) [Entitic vol]Ordered By: Jaylan Kaur on 09-20-2023 Platelet mean volume (Bld) [Entitic vol] 10.0 fL 6.2-12.0 [facility] RBC Auto (Bld) [#/Vol]Ordere d By: Jaylan Kaur on 09-20-2023 RBC (Bld) [#/Vol] 5.27 10*6/uL 4.6-6.2 [facility] Serum or plasma calcium rigoberto urement (mass/volume)Ordered By: Jaylan Kaur on 09-20-2023 Calcium [Mass/Vol] 9.2 mg/dL 8.5-10.1 [facility] Serum or plasma creatinine m easurement (mass/volume)Ordered By: Jaylan Kaur on 09-20-2023 Creatinine [Mass/Vol] 1.09 mg/dL 0.70-1.30 [facility] Comment on above: The validity of the calculated GFR & GFRAA in patients over 70 years has not been determined. Clinical correlation is essential. Serum or plasma urea nitroge n measurement (mass/volume)Ordered By: Jaylan Kaur on 09-20-2023 Urea nitrogen [Mass/Vol] 16 mg/dL 7-18 [facility] Thin prep Papanicolaou smear with manual screeningOrdered By: Jaylan Kaur on 09-20-2023 Thin prep Papanicolaou smear with manual screening 8 5-15 [facility] MRI ELBOW W/O CONTRAST LEFTo n 01-11-2022 MRI ELBOW W/O CONTRAST LEFT ORIGINAL EXAMINATION: MRI OF THE LEFT ELBOW WITHOUT CONTRAST01/11/2022 8:25 am MR ELBOW WITHOUT CONTRAST LEFT TECHNIQUE: Multiplanar multisequence MRI of the left elbow was performed without the administration of intravenous contrast. The examination was incomplete as the patient could not tolerate further imaging COMPARISON: None HISTORY: ORDERING SYSTEM PROVIDED HISTORY: Reason for Exam: Sprain LT elbow. FINDINGS: Within limitations of and incomplete examination: TENDONS: High-grade partial tearing is noted at the common extensor tendon origin. Otherwise, the major tendons of the elbow are intact, including the biceps, triceps, and brachialis tendons are intact. The common flexor tendon is intact. LIGAMENTS: At least high-grade partial tears are present at the origins of the radial collateral and lateral ulnar collateral ligaments with questionable few thin attenuated fibers remaining intact. A thickened morphology with increased intermediate intrasubstance signal is noted of the ulnar collateral ligament, compatible with remote sprain. The annular ligament is intact. JOINTS: There is no dislocation. Mild diffuse articular cartilage thinning is present of the ulnotrochlear and radiocapitellar joints with marginal osteophytes. There is no osteochondral defect. There is a small to moderate volume joint effusion. OSSEOUS STRUCTURES: The bone marrow signal is grossly normal. There is no fracture or contusion. SOFT TISSUES: Musculature is normal without tear or atrophy. The ulnar nerve is normal. Mild surrounding subcutaneous edema is present. The cubital tunnel is intact. IMPRESSION: Within limitations of an incomplete examination: 1. At least high-grade partial tears at the origins of the radial collateral and lateral ulnar collateral ligaments. 2. High-grade partial tearing of common extensor tendon origin. 3. Small to moderate volume elbow joint effusion. Interpreted by: Jewel Muhammad DO Preliminary Report By: Jewel Muhammad DO Electronically signed By Jewel Muhammad DO Dictated Date: 01/11/2022 10:55:01 AM Prelim Date: 01/11/2022 11:04:29 AM Sign Date: 01/11/2022 11:04:29 AM Ordering Provider: ROBERT De Souza [facility]) Laboratory - Microbiology an d Antimicrobial susceptibilityon 10-01-2021 SARS-CoV-2 (COVID-19) RNA SHAMIKA+probe Ql (Unsp spec) Not detected Not Detect [facility] Work Phone: Comment on above: Normal Reference Ran ge: Not DetectedMethod:(RT-PCR) real-time reverse transcriptase PCRLuminex CATIE Instrument*The Food and Drug Administration (FDA) has issued an Emergency Use Authorization (EAU) for the CATIE SARS-CoV-2 Assay for the rapid detection of the virus that causes COVID-19. This test has been validated, but the FDAs independent review of this validation is pending.*Negative results do not preclude infection and should not be used as the sole basis for treatment or patient management. Optimum specimen types and timing for peak viral levels during infections caused by SARS-CoV-2 have not been determined. Collection of multiple specimens from the same patient may be necessary to detect the virus. The possibility of a false negative result should be considered if the patient has clinical presentation or has had recent exposure. Laboratory - Microbiology an d Antimicrobial susceptibilityon 09-21-2021 SARS-CoV-2 (COVID-19) RNA SHAMIKA+probe Ql (Unsp spec) Not detected Not Detect [facility] Work Phone: Comment on above: Normal Reference Ran ge: Not DetectedMethod:(RT-PCR) real-time reverse transcriptase PCRLuminex CATIE Instrument*The Food and Drug Administration (FDA) has issued an Emergency Use Authorization (EAU) for the Lemon Curve SARS-CoV-2 Assay for the rapid detection of the virus that causes COVID-19. This test has been validated, but the FDAs independent review of this validation is pending.*Negative results do not preclude infection and should not be used as the sole basis for treatment or patient management. Optimum specimen types and timing for peak viral levels during infections caused by SARS-CoV-2 have not been determined. Collection of multiple specimens from the same patient may be necessary to detect the virus. The possibility of a false negative result should be considered if the patient has clinical presentation or has had recent exposure. Basic Metabolic Panelon 02-03 Calcium [Mass/Vol] 9.1 mg/dL Normal 8.4-10.4 [facility] Comment on above: Performed By: #### H SABRINA BMP3 #### [facility] [address] [place] [address] Glucose [Mass/Vol] 87 mg/dL Normal 70-100 [facility] Comment on above: Performed By: #### Robin BENNETT BMP3 #### [facility] [address] [place] [address] Urea nitrogen [Mass/Vol] 20 mg/dL Normal 7-20 [facility] Comment on above: Performed By: #### Robin BENNETT BMP3 #### [facility] [address] [place] [address] Anion gap [Moles/Vol] 8 Normal [facility] Comment on above: Performed By: #### Robin BENNETT BMP3 #### [facility] [address] [place] [address] CO2 [Moles/Vol] 25 mmol/L Normal 22-30 [facility] Comment on above: Performed By: #### Robin BENNETT BMP3 #### [facility] [address] [place] [address] Creatinine [Mass/Vol] 1.09 mg/dL Normal 0.52-1.25 [facility] Comment on above: Performed By: #### Robin BENNETT BMP3 #### [facility] [address] [place] [address] GFR/1.73 sq M predicted among blacks MDRD (S/P/Bld) [Vol rate/Area] mL/min/{1.73_m2} Normal >60 [facility] Comment on above: Performed By: #### Robin BENNETT BMP3 #### [facility] [address] [place] [address] GFR/1.73 sq M predicted among non-blacks MDRD (S/P/Bld) [Vol rate/Area] mL/min/{1.73_m2} Normal >60 [facility] Comment on above: Result Comment: Sour ce- MDRD equation with creatinine calibration to IDMS(NKDEP) eGFR not recommended for drug dose adjustment Performed By: #### Robin BENNETT BMP3 #### [facility] [address] [place] [address] Chloride [Moles/Vol] 107 mmol/L Normal 98-107 [facility] Comment on above: Performed By: #### Robin BENNETT BMP3 #### [facility] [address] [place] [address] Potassium [Moles/Vol] 3.9 mmol/L Normal 3.5-5.1 [facility] Comment on above: Performed By: #### Robin BENNETT BMP3 #### [facility] [address] [place] [address] Sodium [Moles/Vol] 140 mmol/L Normal 135-145 [facility] Comment on above: Performed By: #### Robin BENNETT BMP3 #### [facility] [address] [place] [address] Hemogramon 02-13-2019 Erythrocyte distribution width (RBC) [Ratio] 13.7 % Normal 11.5-14.5 [facility] Comment on above: Performed By: #### Robin BENNETT BMP3 #### [facility] [address] [place] [address] Hematocrit (Bld) [Volume fraction] 43.6 % Normal 40.0-52.0 [facility] Comment on above: Performed By: #### H EMOG, BMP3 #### [facility] [address] [place] [address] Hemoglobin (Bld) [Mass/Vol] 15.0 g/dL Normal 13.0-18.0 [facility] Comment on above: Performed By: #### H EMOG, BMP3 #### [facility] [address] [place] [address] MCH (RBC) [Entitic mass] 30.4 pg Normal 26.0-34.0 [facility] Comment on above: Performed By: #### H EMOG, BMP3 #### [facility] [address] [place] [address] MCHC (RBC) [Mass/Vol] 34.4 % Normal 32.0-36.0 [facility] Comment on above: Performed By: #### H EMOG, BMP3 #### [facility] [address] [place] [address] MCV (RBC) [Entitic vol] 88.5 fL Normal 80.0-98.0 [facility] Comment on above: Performed By: #### H EMOG, BMP3 #### [facility] [address] [place] [address] Platelet mean volume (Bld) [Entitic vol] 7.6 fL Normal 7.4-10.4 [facility] Comment on above: Performed By: #### H EMOG, BMP3 #### [facility] [address] [place] [address] Platelets (Bld) [#/Vol] 264 10*3/uL Normal 140-440 [facility] Comment on above: Performed By: #### H EMOG, BMP3 #### [facility] [address] [place] [address] RBC (Bld) [#/Vol] 4.92 10*6/uL Normal 4.40-5.90 [facility] Comment on above: Performed By: #### H EMOG, BMP3 #### [facility] [address] [place] [address] WBC (Bld) [#/Vol] 8.5 10*3/uL Normal 3.6-10.7 [facility] Comment on above: Performed By: #### H EMOG, BMP3 #### [facility] [address] [place] [address] Vital Signs Date Time Vital Sign Value Performing Clinician Bradley mccoy 03-04-2025 16:43-0400 Body temperature 98.2 [degF] Dr. Eric Odom MD Work Phone: 9(849)338-986207 [place] [address] 03-04-2025 16:43-0400 Diastolic blood pressure 87 mm[Hg] Dr. Eric Odom MD Work Phone: 7(998)463-782507 [place] [address] 03-04-2025 16:43-0400 Heart rate 55 /min Dr. Eric Odom MD Work Phone: 7(353)421-117107 [place] [address] 03-04-2025 16:43-0400 Respiratory rate 12 /min Dr. Eric Odom MD Work Phone: 0(604)828-497707 [place] [address] 03-04-2025 16:43-0400 SaO2% (BldA) [Mass fraction] 100 % Dr. Eric Odom MD Work Phone: 9(110)931-766807 [place] [address] 03-04-2025 16:43-0400 Systolic blood pressure 144 mm[Hg] Dr. Eric Odom MD Work Phone: 9(040)479-644407 [place] [address] 03-04-2025 13:30-0400 Body height 193.[address] Eric Odom MD Work Phone: 2(448)903-637307 [place] [address] 03-04-2025 13:30-0400 Body mass index (BMI) [Ratio] 47 kg/m2 Dr. Eric Odom MD Work Phone: 6(014)845-107607 [place] [address] 03-04-2025 13:30-0400 Body weight 175.[address] Eric Odom MD Work Phone: 1(139)340-589007 [place] [address] 12-13-2024 09:22-0400 Body temperature 97.9 [degF] Dr. Eric Odom MD Work Phone: 0(224)[phone] [place] [address] 12-13-2024 09:22-0400 Diastolic blood pressure 77 mm[Hg] Dr. Eric Odom MD Work Phone: 6(086)513-952907 [place] [address] 12-13-2024 09:22-0400 Heart rate 84 /min Dr. Eric Odom MD Work Phone: [facility] 12-13-2024 09:22-0400 Respiratory rate 17 /min Dr. Eric Odom MD Work Phone: [facility] 12-13-2024 09:22-0400 SaO2% (BldA) [Mass fraction] 100 % Dr. Eric Odom MD Work Phone: [facility] 12-13-2024 09:22-0400 Systolic blood pressure 170 mm[Hg] Dr. Eric Odom MD Work Phone: [facility] 12-13-2024 08:22-0400 Body height 193.[address] Eric Odom MD Work Phone: [facility] 12-13-2024 08:22-0400 Body mass index (BMI) [Ratio] 47.9 kg/m2 Dr. Eric Odom MD Work Phone: [facility] 12-13-2024 08:22-0400 Body weight 178.[address] Eric Odom MD Work Phone: [facility] 09-22-2023 16:20-0500 Body temperature 97.5 [degF] Dr. Eric Odom Work Phone: [facility] 09-22-2023 16:20-0500 Diastolic blood pressure 89 mm[Hg] Dr. Eric Odom Work Phone: [facility] 09-22-2023 16:20-0500 Heart rate 77 /min Dr. Eric Odom Work Phone: [facility] 09-22-2023 16:20-0500 Respiratory rate 18 /min Dr. Eric Odom Work Phone: [facility] 09-22-2023 16:20-0500 SaO2% (BldA) [Mass fraction] 94 % Dr. Eric Odom Work Phone: [facility] 09-22-2023 16:20-0500 Systolic blood pressure 139 mm[Hg] Dr. Eric Odom Work Phone: [facility] 09-22-2023 13:10-0500 Body height 193.[address] Eric Odom Work Phone: [facility] 09-22-2023 13:10-0500 Body mass index (BMI) [Ratio] 48.3 kg/m2 Dr. Eric Odom Work Phone: [facility] 09-22-2023 13:10-0500 Body weight [address] Eric Odom Work Phone: [facility] 09-12-2023 14:05-0500 Body mass index (BMI) [Ratio] 47.7 kg/m2 Dr. Eric dOom Work Phone: [facility] 09-12-2023 14:05-0500 Body temperature 97.4 [degF] Dr. Eric Odom Work Phone: [facility] 09-12-2023 14:05-0500 Body weight 178.[address] Eric Odom Work Phone: [facility] 09-12-2023 14:05-0500 Diastolic blood pressure 90 mm[Hg] Dr. Eric Odom Work Phone: [facility] 09-12-2023 14:05-0500 Heart rate 81 /min Dr. Eric Odom Work Phone: [facility] 09-12-2023 14:05-0500 Respiratory rate 18 /min Dr. Eric Odom Work Phone: [facility] 09-12-2023 14:05-0500 SaO2% (BldA) [Mass fraction] 95 % Dr. Eric Odom Work Phone: [facility] 09-12-2023 14:05-0500 Systolic blood pressure 147 mm[Hg] Dr. Eric Odom Work Phone: [facility] 08-08-2023 13:10-0500 Body mass index (BMI) [Ratio] 48.3 kg/m2 Dr. Eric Odom Work Phone: [facility] 08-08-2023 13:10-0500 Body temperature 100 [degF] Dr. Eric Odom Work Phone: [facility] 08-08-2023 13:10-0500 Body weight 180.[address] Eric Odom Work Phone: [facility] 08-08-2023 13:10-0500 Diastolic blood pressure 85 mm[Hg] Dr. Eric Odom Work Phone: [facility] 08-08-2023 13:10-0500 Heart rate 107 /min Dr. Eric Odom Work Phone: [facility] 08-08-2023 13:10-0500 Respiratory rate 16 /min Dr. Eric Odom Work Phone: [facility] 08-08-2023 13:10-0500 SaO2% (BldA) [Mass fraction] 96 % Dr. Eric Odom Work Phone: [facility] 08-08-2023 13:10-0500 Systolic blood pressure 139 mm[Hg] Dr. Eric Odom Work Phone: [facility] 03-24-2022 10:31-0400 Body height 193.[address] Eric Odom Work Phone: [facility] Work Phone: 03-24-2022 10:31-0400 Diastolic blood pressure 98 mm[Hg] Dr. Eric Odom Work Phone: [facility] Work Phone: 03-24-2022 10:31-0400 Systolic blood pressure 142 mm[Hg] Dr. Eric Odom Work Phone: [facility] Work Phone: 03-24-2022 10:31-0400 Body mass index (BMI) [Ratio] 45.3 kg/m2 Dr. Eric Odom Work Phone: [facility] Work Phone: 03-24-2022 10:31-0400 Body weight 169.[address] Eric Odom Work Phone: [facility] Work Phone: 03-24-2022 10:31-0400 Heart rate 94 /min Dr. Eric Odom Work Phone: [facility] Work Phone: 03-24-2022 10:31-0400 Respiratory rate 18 /min Dr. Eric Odom Work Phone: [facility] Work Phone: 03-24-2022 10:31-0400 SaO2% (BldA) [Mass fraction] 94 % Dr. Eric Odom Work Phone: [facility] Work Phone: 12-20-2021 14:32-0400 Body height 193.[address] Eric Odom Work Phone: [facility] Work Phone: 12-20-2021 14:32-0400 Body mass index (BMI) [Ratio] 45.1 kg/m2 Dr. Eric Odom Work Phone: [facility] Work Phone: 12-20-2021 14:32-0400 Body temperature 97.8 [degF] Dr. Eric Odom Work Phone: [facility] Work Phone: 12-20-2021 14:32-0400 Body weight [address] Eric Odom Work Phone: [facility] Work Phone: 12-20-2021 14:32-0400 Diastolic blood pressure 78 mm[Hg] Dr. Eric Odom Work Phone: [facility] Work Phone: 12-20-2021 14:32-0400 Heart rate 85 /min Dr. Eric Odom Work Phone: [facility] Work Phone: 12-20-2021 14:32-0400 Respiratory rate 14 /min Dr. Eric Odom Work Phone: [facility] Work Phone: 12-20-2021 14:32-0400 SaO2% (BldA) [Mass fraction] 97 % Dr. Eric Odom Work Phone: [facility] Work Phone: 12-20-2021 14:32-0400 Systolic blood pressure 120 mm[Hg] Dr. Eric Odom Work Phone: [facility] Work Phone: 11-17-2021 15:08-0400 Body mass index (BMI) [Ratio] 46.1 kg/m2 Dr. Eric Odom Work Phone: [facility] Work Phone: 11-17-2021 15:08-0400 Body weight 167.[address] Eric Odom Work Phone: [facility] Work Phone: 11-17-2021 15:08-0400 Diastolic blood pressure 80 mm[Hg] Dr. Eric Odom Work Phone: [facility] Work Phone: 11-17-2021 15:08-0400 Heart rate 76 /min Dr. Eric Odom Work Phone: [facility] Work Phone: 11-17-2021 15:08-0400 Respiratory rate 16 /min Dr. Eric Odom Work Phone: [facility] Work Phone: 11-17-2021 15:08-0400 Systolic blood pressure 130 mm[Hg] Dr. Eric Odom Work Phone: [facility] Work Phone: 10-10-2021 15:47-0500 Body mass index (BMI) [Ratio] 46.2 kg/m2 Dr. Eric Odom Work Phone: [facility] Work Phone: 10-10-2021 15:47-0500 Body temperature 97.8 [degF] Dr. Eric Odom Work Phone: [facility] Work Phone: 10-10-2021 15:47-0500 Body weight 167.[address] Eric Odom Work Phone: [facility] Work Phone: 10-10-2021 15:47-0500 Diastolic blood pressure 102 mm[Hg] Dr. Eric Odom Work Phone: [facility] Work Phone: 10-10-2021 15:47-0500 Heart rate 93 /min Dr. Eric Odom Work Phone: [facility] Work Phone: 10-10-2021 15:47-0500 Respiratory rate 18 /min Dr. Eric Odom Work Phone: [facility] Work Phone: 10-10-2021 15:47-0500 SaO2% (BldA) [Mass fraction] 99 % Dr. Eric Odom Work Phone: [facility] Work Phone: 10-10-2021 15:47-0500 Systolic blood pressure 174 mm[Hg] Dr. Eric Odom Work Phone: [facility] Work Phone: Encounters Encounter Date Encounter Type Care Provider Facility Start: 03-04-2025 Evaluation and management of inpatient Dr. Hamilton Corral DO -Progressive Care Unit Work Phone: Start: 12-13-2024 End: 12-13-2024 Emergency department patient visit Dr. Eric Odom MD Work Phone: -Emergency Department Work Phone: Start: 03-15-2024 End: 03-15-2024 ambulatory Blaine Laurie Facility:[facility] Start: 11-04-2023 End: 11-04-[address] Eric Odom Work Phone: [facility] Work Phone: Start: 11-04-2023 End: 11-04-[address] Eric Odom Work Phone: [facility] Start: 10-06-2023 End: 10-06-[address] Eric Odom Work Phone: [facility] Work Phone: Start: 09-22-2023 Non-patient / Non-visit Dr. Gary Odom Work Phone: [facility] Start: 09-22-2023 End: 09-22-2023 Admission to same day surgery center Dr. Eric Odom Work Phone: [facility] Start: 09-20-2023 End: 09-20-2023 Non-patient / Non-visit Dr. Eric Odom Work Phone: [facility] Work Phone: Start: 09-12-2023 End: 09-12-[address] Eric Odom Work Phone: [facility] Work Phone: Start: 08-08-2023 End: 08-08-[address] Eric Odom Work Phone: [facility] Work Phone: Start: 06-29-2023 End: 06-29-2023 ambulatory [facility] Work Phone: Start: 06-29-2023 End: 06-29-2023 Discharged Recurring [facility]-Occupational [facility] Work Phone: Start: 07-12-2022 End: 07-12-2022 ambulatory [facility] Work Phone: Start: 07-12-2022 End: 07-12-2022 Discharged Recurring [facility] Start: 04-21-[address] [facility] Start: 04-19-2022 End: 04-19-[address] Eric Odom Work Phone: [facility] Start: 03-24-2022 End: 03-24-[address] Eric Odom Work Phone: [facility] Start: 01-11-2022 End: 01-11-2022 Patient encounter procedure ROBERT BENITES MD [facility] Start: 12-20-2021 End: 12-20-2021 Emergency department patient visit Dr. Eric Odom Work Phone: [facility]-Emergency Department Start: 11-17-2021 End: 11-17-[address] Eric Odom Work Phone: [facility] Start: 10-10-2021 End: 10-10-2021 Emergency department patient visit Dr. Eric Odom Work Phone: [facility]-Emergency Department Start: 10-01-2021 End: 10-01-[address] Eric Odom Work Phone: [facility]-Laboratory, Specimen Start: 09-21-2021 End: 09-21-[address] Eric Odom Work Phone: [facility]-Laboratory, Specimen Start: 09-11-2021 End: 09-11-[address] Eric Odom Work Phone: [facility]-Pulmonary Services/Neurology Procedures Date Procedure Procedure Detail Performing Clinician Start: 03-04-[address] Eric Odom MD Work Phone: Start: 03-04-2025 CT angiography of ch est with contrast Dr. Eric Odom MD Work Phone: Start: 03-04-2025 X-ray of chest, PA a nd lateral views Dr. Eric Odom MD Work Phone: Start: 03-04-2025 D-dimer assay, quantitative Dr. Eric Odom MD Work Phone: Comment on above: D-Dimer ELEVATED (>0 .49): Additional studies and clinicalassessments are indicated to conclude diagnosis of:Deep Vein Thrombosis (DVT) or Pulmonary Embolism (PE)CRITICAL VALUE CALLED TO DEV RICHARDSON03/04/25 Fariba Mireles.RESULTS READ BACK BY SAME. Start: 04-19-2022 X-ray of lumbosacral spine Dr. Eric Odom Work Phone: Start: 12-20-2021 X-ray of both feet Dr. Eric Odom Work Phone: History of percutane ous transluminal coronary angioplasty History of percutaneous transluminal coronary angioplasty Dr. Eric Odom Work Phone: Plan of Treatment Date Care Activity Detail Author Start: 03-04-2025 Thyroid stimulating hormone measurement [facility] Start: 03-04-2025 Hospital admission, emergency, from emergency room, medical nature [facility] Start: 03-04-2025 Verification routine [facility] Start: 03-04-2025 Admission procedure [facility] Start: 03-04-2025 [facility] Start: 03-04-2025 [facility] Start: 12-13-2024 [facility] Start: 09-22-2023 Patient discharge [facility] Start: 09-22-2023 Anesthesia hernia re pair lower abdomen nos ANESTH REPAIR OF HERNIA [facility] Start: 09-22-2023 RPR AA HRN 1ST < 3 CM RDC RPR AA HRN 1ST < 3 CM RDC [facility] Hemoglobin A1c/Hemoglobin.total in Blood [facility] Patient Education [facility] Work Phone: Patient referral [facility] Work Phone: Troponin T.cardiac [Mass/volume] in Serum or Plasma by High sensitivity method [facility] Troponin T.cardiac [Mass/volume] in Serum or Plasma by High sensitivity method [facility] Immunizations Immunization Date Immunization Notes Care Provider Fa jon 12-20-2021 tetanus toxoid, redu lupe diphtheria toxoid, and acellular pertussis vaccine, adsorbed Dr. Eric Odom Work Phone: [facility] Payers Date Payer Category Payer Unknown [id number] 2023 Self-pay [id number] 2023 Unknown [id number] 2014 Unknown [id number] Unknown [id number] Unknown [id number] Social History Date Type Detail Facility Start: 12-20-2021 End: 09-16-2023 Tobacco smoking status NHIS Unknown if ever smoked [facility] Start: 01-01-2021 Cigarettes [facility] Start: 1970 Sex Assigned At Male [facility] Work Phone: Start: 02-19-2014 None [facility] Start: 02-19-2014 With Family [facility] Start: 12-13-2024 End: 03-04-2025 Tobacco smoking status NHIS Ex-smoker (finding) [facility] Start: 12-13-2024 Sex Male (finding) [facility] Medical Equipment Procedure Code Equipment Code Equipment Origin al Text Equipment Identifier Dates Repair, hernia, umbilical, using mesh ([id number]) Extra-gynaecologic al surgical mesh, composite-polymer ()[id number] 13 FDA Start: 09-22-2023 Goals Date Patient Goal Desired Activity /State Mental Status Date Assessment Result Facility 03-04-2025 Cognitive function Awake;Alert;A ppropriate;Fol lows Commands [facility] Work Phone: 09-22-2023 Cognitive function Voice/Name [facility] Work Phone: Clinical Notes 07-22-2009 to 03-04-2025 Note Date & Type Note Facility 03-04-2025 Discharge summary [facility] 03-04-2025 Radiology Diagnostic study note [facility] Imaging Services [address] [place] [address] CTA Chest W/WO Contrast MR#: [id number] Acct: [id number] Name: ARGELIA COPELAND Rep #: [id number] : 1970 M 54 From: Rahel Lopez MD PCP: Dr. Eric Odom MD Status: REG E R Study:CTA Chest W/WO Contrast Date of Exam: 03/04/25 Exam# [id number] Ordering Dr: Juno Rios DO PROCEDURE: CTA CHEST W/WO CONTRAST 03/04/2025 REASON FOR EXAM: CHEST PAIN BETWEEN SHOULDERS, ELEVATED DIMER TECHNIQUE: CTA CHEST W/WO CONTRAST Multiplanar Sagittal and Coronal images were obtained. CONTRAST: 100 mL of Isovue 370 One or more dose reduction techniques were used (e.g., Automated exposure control, adjustment of the mA and/or kV according to patient size, use of iterative reconstruction technique). RADIATION DOSE SUMMARY: DLP: 535 mGycm COMPARISON: None FINDINGS: PULMONARY ARTERIES: No evidence of pulmonary embolism. LUNGS AND PLEURA: No consolidations. No definite pulmonary edema. No mass or nodule. No pleural effusion. No pneumothorax. MEDIASTINUM: No lymphadenopathy or mass. The heart shows no acute findings. Extensive coronary atherosclerosis. The aorta shows no acute findings. The pulmonary trunk, and branches of the vessels in the mediastinum are within normal limits. SUPRACLAVICULAR AND AXILLARY: No abnormalities seen in these regions. No mass or significant lymphadenopathy. UPPER ABDOMEN: The visualized upper abdomen is unremarkable. BONES AND SOFT TISSUES: The ribs are unremarkable. The visualized spine shows no significant acute findings. No focal bony mass lesions noted. The subcutaneous soft tissues are unremarkable. CT/CTA Chest W/WO Contrast IMPRESSION: No acute pulmonary emboli. No focal consolidations. Reading Location: [facility] CC: Dr. Eric Odom MD; Dr. Anselmo Rios DO ~ Planer Feeder: Signed [facility] 03-04-2025 Radiology Diagnostic study note [facility] Imaging Services [address] [place], [place] [id number] Chest PA and Lateral MR#: [id number] Acct: [id number] Name: ARGELIA COPELAND Rep #: [id number] : 1970 M 54 From: Anuj Ross MD PCP: Dr. Eric Odom MD Status: PRE E R Study:Chest PA and Lateral Date of Exam: 03/04/25 Exam# [id number] Ordering Dr: Juon Rios DO PROCEDURE: CHEST PA AND LATERAL 03/04/2025 REASON FOR EXAM: CHEST PAIN TECHNIQUE: CHEST PA AND LATERAL COMPARISON: Chest x-ray 08/12/2021. RAD/Chest PA and Lateral IMPRESSION: Lungs appear clear of acute disease. No pleural effusion or pneumothorax is noted. The cardiomediastinal silhouette is within the normal range. Left glenohumeral joint degenerative changes are noted. Degenerative changes of the visualized spine are also seen. No acute osseous process is seen. Reading Location: [facility] CC: Dr. Eric Odom MD; Dr. Anselmo Rios DO ~ Planer Feeder: Signed [facility] 03-04-2025 Discharge summary Note Date/Time March 04, 2025 4:39pm [facility] Medical Records Department [address] [place] [address] Emergency Department Summary 03/04/25 MR#: [id number] Acct: [id number] Name: ARGELIA COPELAND Rep #:[id number] : 1970 54 From: Anselmo Rios DO PCP: Dr. Eric Odom MD Status:REG E R Location: ED HPI History of Present Illness Chief Complaint: Chest Pain Narrative Narrative: Patient is a 54-year-old male past medical history of CAD with stents, hyperlipidemia, BMI of 47, hypertension, former smoker, depression, anxiety who presented to the emergency department with a chief complaint of chest pain. Patient states that this feels very similar to when he originally had his heart attack back in 2008. He states that he has pain in the center of her chest rating between his shoulder blades. He states that has been going on for last several days but notes that it significantly worsened today prompting him to come here for further evaluation management. Patient states that he does not follow with a doctor on a regular basis as he does not have insurance therefore he has not had a stress test or a repeat heart cath in a extended period of time. Patient denies any recent travel history denies any history of blood clots. Patient does admit to occasional cannabis use but denies any IV drug use. [facility] Medical History Wears glasses Cancer Arthritis History of Holter monitoring Normal stress echocardiogram History of stress test Hypertension Cardiology follow-up encounter Anxiety Umbilical hernia Essential hypertension Wears contact lenses Depression History of steroid therapy Chronic pain Shortness of breath on exertion Former smoker Edema Myocardial infarct Hx of echocardiogram Back pain right elbow surgery History of lateral wall myocardial infarction (07/22/09) Atherosclerotic heart disease of [place] coronary artery without angina pectoris HTN (hypertension) Morbid obesity with BMI of 40.0-44.9, adult Tobacco use disorder HLD (hyperlipidemia) Family history of ischemic heart disease Home Medications ?Medication ?Instructions ?Recorded ?Last Taken ?Type aspirin 325 mg tablet 325 mg PO DAILY@0800 03/04/25 History metoprolol tartrate 25 mg tablet 25 mg PO BID 10/27/20 03/04/25 History multivitamin 1 tab PO DAILY 03/27/21 0605/30 History glucosamine HCl 1,500 mg tablet 1,000 mg PO DAILY 08/0503/04/25 History losartan 100 mg tablet 100 mg PO DAILY 11/17/21 History amlodipine 10 mg tablet (Norvasc) 10 mg PO DAILY 09/1203/04/25 History duloxetine 30 mg capsule,delayed 30 mg PO DAILY 03/04/25 History release (Cymbalta) davida root extract 500 mg 1,300 mg PO DAILY 09/0503/03/25 History capsule magnesium 200 mg tablet 400 mg PO DAILY 09/16/23 Unk nown History coenzyme Q10 100 mg capsule (Co 300 mg PO DAILY 03/03/25 History Q-10) ibuprofen 200 mg tablet (Addaprin) 800 mg PO Q8H knee pain 03/04/25 03/04/25 History magnesium 250 mg tablet 1,000 mg PO DAILY 03/04/25 0 03/04/25 History Allergy/AdvReac Type Severity Reaction Status Date / Time bee venom protein (honey bee) Allergy Swelling Verified 03/04/25 13:35 atorvastatin AdvReac Severe Myalgias Verified 03/04/25 13:35 cephalexin (From Keflex) AdvReac GIVES ME Verified 03/04/25 13:35 THE JITTERS shellfish derived AdvReac Nausea/Vom/ Verified 03/04/25 13:35 Diarrhea Family History Father , Age 57 of [place], had [place]/CAD at age 39 CAD (coronary artery disease) Myocardial infarction Mother Hypertension Sister Hypertension Surgical History S/P umbilical hernia repair, follow-up exam Hx of surgical procedure History of surgery on arm History of dental surgery Stented coronary artery (07/22/09) Social History household members: other details: mother housing: house current occupational status: employed 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[employer] 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: Former smoker pack-years: 20 alcohol intake: never do you feel safe at home: Yes ROS ROS ED ROS Narrative Constitutional: Denies any fevers, chills, headaches Eyes: Denies change in vision double vision blurry vision Cardiovascular: Complains chest pain as noted above denies palpitations Respiratory: Denies coughing wheezing shortness of breath Abdomen: Complains of nausea denies abdominal pain vomiting diarrhea : Denies urinary symptoms Neurological: Denies any numbness, wheeze, tingling Musculoskeletal: Complains of chest pain rating to his back between shoulder blades noted above Skin: Denies any rashes or lesions EXAM Physical Exam Narrative Exam Narrative: General: Patient did not appear to be uncomfortable in bed no acute distress Head: Atraumatic, normocephalic Eyes: PERRL bilaterally, EOMI bilateral, no conjunctival injection noted Neck: Soft, supple, trachea midline Cardiovascular: Regular rate and rhythm Respiratory: Clear to auscultation bilaterally Abdomen: No tenderness palpation Extremities: Radial pulses +2/4 in the bilateral extremities, +5/5 strength noted in the bilateral upper and lower extremities Neurological: Patient follow commands knew that he was at [facility] year is 2024 Skin: Warm, dry, tact no rashes or lesions noted Const Vital Signs: 03/04/25 13:30 03/04/25 14:00 03/04/25 14:06 Temperature 98.2 F Temperature Source Oral Pulse Rate 92 74 Respiratory Rate 19 H 15 Blood Pressure 114/93 H 115/77 Blood Pressure Mean 100 88 Pulse Ox 99 97 Oxygen Delivery Method Room Air Room Air 03/04/25 14:26 03/04/25 14:30 03/04/25 15:00 Temperature Temperature Source Pulse Rate 65 66 59 L Respiratory Rate 12 14 Blood Pressure 121/79 H 97/52 L 123/73 H Blood Pressure Mean 67 85 Pulse Ox 98 97 Oxygen Delivery Method Room Air 03/04/25 15:45 03/04/25 16:00 Temperature Temperature Source Pulse Rate 56 L Respiratory Rate 11 L Blood Pressure 133/85 H 139/86 H Blood Pressure Mean 100 103 Pulse Ox 98 Oxygen Delivery Method MDM MDM MDM Narrative Medical decision making narrative: Patient is a 54-year-old male who presented to the emergency department chief complaint chest pain and states that this feels very similar to a previous heartattack. On the differential diagnose includes but limited to ACS, pneumonia, pneumothorax, electrolyte abnormality, cardiac arrhythmia. Once workup is obtained reviewed he will be reevaluated. Patient given sublingual nitro, aspirin and Zofran. Patient chest pain did not improve with the sublingual nitroglycerin he did be calm transient hypotensive after this medication but blood pressure responded toIV fluids. Patient CBC reviewed showed no evidence leukocytosis white blood count was 10.3,hemoglobin was 16.1, plate count of 322. Patient D-dimer was elevated 0.59 did have a CTA of the chest on. Patient sodium 136, Tessman normal at 4, creatininenormal at 0.95. Patient's troponin was noted be 34 EKG reviewed showed sinus rhythm with a rate of 87 bpm. This was compared to previous EKG from September 20, 2023 and was largely unchanged that EKG did have some artifact noted. Patient's chest x-ray reviewed by myself by radiology showed no acute cardiopulmonary processes. Patient CT of the chest reviewed showed no acute pulmonary emboli no focal consolidations noted. I reached out to on-call dairy cattle farm manager Dr. Hernandez who is recommending place the patient on heparin and will plan for heart catheterization tomorrow. Discussed the case with hospitalist Dr. Corral who accept the patient for admission. Heparin drip was ordered. Patient notified is agreeable to plan allquestion concerns answered. Lab Data Labs: Laboratory Results - last 24 hr 03/04/25 03/04/25 13:40 15:30 WBC 7.3 RBC 5.30 Hgb 16.1 Hct 45.7 MCV 86.2 MCH 30.4 MCHC 35.2 RDW Std Deviation 41.0 RDW Coeff of Sandy 13.2 Plt Count 322 MPV 10.5 Immature Gran % (Auto) 0.600 Neut % (Auto) 69.0 Lymph % (Auto) 22.4 [place] % (Auto) 5.5 Eos % (Auto) 1.4 Baso % (Auto) 1.1 H Absolute Neuts (auto) 5.0 Absolute Lymphs (auto) 1.63 Nucleated RBC % 0 D-Dimer Quant (PE/DVT) 0.59 H* Sodium Cancelled 136 Potassium Cancelled 4.0 Chloride Cancelled 102 Carbon Dioxide Cancelled 22.5 Anion Gap Cancelled 11 BUN Cancelled 11 Creatinine Cancelled 0.95 Estim Creat Clear Calc Cancelled 151.76 Est GFR (MDRD) Non-Af Cancelled 95 BUN/Creatinine Ratio Cancelled 11.3 Glucose Cancelled 98 Calcium Cancelled 8.4 Troponin T High Sens Cancelled 34 H Radiography Diagnostic Testing: Clinical Impression(s) from Imaging Studies Chest X-Ray 03/04/25 14:02 IMPRESSION: Lungs appear clear of acute disease. No pleural effusion or pneumothorax is noted. The cardiomediastinal silhouette is within the normal range. Left glenohumeral joint degenerative changes are noted. Degenerative changes of the visualized spine are also seen. No acute osseous process is seen. Reading Location: [facility] Chest CTA 03/04/25 15:06 IMPRESSION: No acute pulmonary emboli. No focal consolidations. Reading Location: [facility] Discharge Plan Triage Chief Complaint: Chest Pain ED Provider: Anselmo Rios Dx/Rx/DC Orders Clinical Impression: Chest pain, Non-ST elevation IL (NSTEMI) Prescriptions: No Action metoprolol tartrate 25 mg tablet 25 mg PO BID Patient Comments: TAKE 1 TABLET BY MOUTH TWICE A DAY glucosamine HCl 1,500 mg tablet 1,000 mg PO DAILY Rx Instructions: administer with a meal losartan 100 mg tablet 100 mg PO DAILY duloxetine [Cymbalta] 30 mg capsule,delayed release(DR/EC) 30 mg PO DAILY amlodipine [Norvasc] 10 mg tablet 10 mg PO DAILY aspirin 325 MG tablet 325 mg PO DAILY@0800 multivitamin Tablet 1 tab PO DAILY ashwagandha root extract 500 mg capsule 1,300 mg PO DAILY magnesium 200 mg tablet 400 mg PO DAILY magnesium 250 mg tablet 1,000 mg PO DAILY coenzyme Q10 [Co Q-10] 100 mg capsule 300 mg PO DAILY ibuprofen [Addaprin] 200 mg tablet 800 mg PO Q8H Primary Care Provider: Eric Odom Referrals: Eric Odom MD [Primary Care Provider] - Print Language: [place] Citizen Disposition Disposition: Acute Care Hospital [facility] What to do if you have Problems For any increased pain, shortness of breath, bleeding, nausea or vomiting, chestpain, or any unexpected problems, contact your Primary Care Provider. Call [facility] ([phone]) or report to the closest Emergency Room. Call 911 if necessary. 03/04/25 3635 <Electronically signed by Anselmo Rios DO> Cosigner Signature (if applicable): CC: Dr. Eric Odom MD ~ Signed [facility] Work Phone: [phone] 794-549904-10-2025 Discharge summary [facility] Medical Records Department [address] [place] [address] Emergency Department Summary 12/13/24 MR#: [id number] Acct: [id number] Name: ARGELIA COPELAND Rep #:[id number] : 1970 54 From: Wero ulloa DO PCP: Dr. Eric Odom MD Status:REG E R Location: ED HPI History of Present Illness Chief Complaint: Wound Narrative Narrative: Chief complaint and HPI: Right first toe blister. 54-year-old male with past medical history of CAD, HTN, HLD, lumbar radiculopathy presents for evaluation of right first toe blister. Patient states that he recently bought new work boots. He states since wearing them the past several days he has developed blisters on his feet. He developed blisters to the bilateral first toes as wellas the right heel. He states yesterday evening the blister on his right first toe broke open with clear drainage.He states it is mildly swollen. He is concerned that it may be infected which is why he presents today. He denies anyfever, chills, nausea, vomiting. Denies any significant pain where the blistersarelocated. Not diabetic. Review of systems: See HPI Medications: As listed on the chart Allergies: As listed on the chart PFSH: Per chart Vital signs: As listed on the chart. Reviewed. Physical exam: Gen: A&O x3, NAD Head: Normocephalic, atraumatic Eyes: No sclera icterus, conjunctiva clear ENT: Moist mucous membranes CV: Regular rhythm Resp: Nonlabored respiration Musc: Full ROM, no deformity, patient has a 1.5 x 1 cm open blister to the medial aspect of the right great toe. There is some mild clear drainage withoutpurulence. There is mild swelling and erythema. No warmth, no crepitus, no lymphatic streaking. Nontender to palpation except at the open skin. No swelling or tenderness of the other toes, foot, calf. There is another intact blister on the rightheel. There is an intact blister on the left great toe. Good capillary refill. DP/PT pulse plus 2 out of 4. Skin: Warm, dry Neuro: Alert, oriented, grossly intact, sensation intact Psych: Cooperative, appropriate mood and affect [facility] Medical History Wears glasses Cancer Arthritis History of Holter monitoring Normal stress echocardiogram History of stress test Hypertension Cardiology follow-up encounter Anxiety Umbilical hernia Essential hypertension Wears contact lenses Depression History of steroid therapy Chronic pain Shortness of breath on exertion Former smoker Edema Myocardial infarct Hx of echocardiogram Back pain right elbow surgery History of lateral wall myocardial infarction (07/22/09) Atherosclerotic heart disease of [place] coronary artery without angina pectoris HTN (hypertension) Morbid obesity with BMI of 40.0-44.9, adult Tobacco use disorder HLD (hyperlipidemia) Family history of ischemic heart disease Home Medications ?Medication ?Instructions ?Recorded ?Last Taken ?Type aspirin 325 mg tablet 325 mg PO DAILY@0800 9 09/15/23 History chlorthalidone 25 mg tablet 25 mg PO DAILY 10/27/20 10:00 History metoprolol tartrate 25 mg tablet 25 mg PO BID 10/27/20 09/22/23 History multivitamin 1 tab PO DAILY 03/27/21 Unkn own History glucosamine HCl 1,500 mg tablet 1,000 mg PO DAILY 08/05 11/23 Unknown History hydroxyzine HCl 50 mg tablet 100 mg PO QHS 08/17/21 Un known History nortriptyline 50 mg capsule 100 mg PO QHS 08/17/21 Unk nown History losartan 100 mg tablet 100 mg PO DAILY 11/17/21 History amlodipine 10 mg tablet (Norvasc) 10 mg PO DAILY 09/1209/22/23 History duloxetine 30 mg capsule,delayed 30 mg PO DAILY Unknown History release (Cymbalta) ashwagandha root extract 500 mg 1,300 mg PO DAILY 09/05 10/29 Unknown History capsule magnesium 200 mg tablet 400 mg PO DAILY 09/16/23 Unk nown History oxycodone 5 mg tablet 5 - 10 mg (1 - 2 x 5 mg) PO Q6H 09/22/23 Unknown Rx PRN pain 5 days #15 tabs Allergy/AdvReac Type Severity Reaction Status Date / Time bee venom protein (honey bee) Allergy Swelling Verified 12/13/24 08:22 atorvastatin AdvReac Severe Myalgias Verified 12/13/24 08:22 cephalexin (From Keflex) AdvReac GIVES ME Verified 12/13/24 08:22 THE JITTERS shellfish derived AdvReac Nausea/Vom/ Verified 12/13/24 08:22 Diarrhea Family History Father , Age 57 of [place], had [place]/CAD at age 39 CAD (coronary artery disease) Myocardial infarction Mother Hypertension Sister Hypertension Surgical History S/P umbilical hernia repair, follow-up exam Hx of surgical procedure History of surgery on arm History of dental surgery Stented coronary artery (07/22/09) Social History household members: other details: mother housing: house current occupational status: employed 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[employer] 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: Former smoker pack-years: 20 alcohol intake: never do you feel safe at home: Yes EXAM Physical Exam Const Vital Signs: 12/13/24 08:22 Temperature 98.0 F Temperature Source Oral Pulse Rate 69 Respiratory Rate 18 Blood Pressure 185/95 H Blood Pressure Mean 125 Pulse Ox 97 Oxygen Delivery Method Room Air MDM MDM MDM Narrative Medical decision making narrative: 54-year-old male with past medical history of CAD, HTN, HLD, lumbar radiculopathy presents for evaluation of right first toe blister. Blisters developed after obtaining boots. See physical exam findings. Differential diagnosis includes but is not limited to normal wound healing, cellulitis, osteomyelitis. Physical exam is not consistent with osteomyelitis. Suspect either normal wound healing versus early cellulitis. Patient not having any systemic symptoms. I do not think any laboratory workup or imaging is needed. Bacitracin was applied to the wound and wound was dressed. Patient was educated not to wear the work boots. When lying at home open area to air. Monitor for worsening signs and symptoms. Follow-up with PCP and podiatry. Will start him on prophylactic antibiotics to prevent infection/treat early cellulitis. He confirmed understanding. Patient stable to discharge home. Impression: 1. Right great toe blister Discharge Plan Triage Chief Complaint: Wound ED Provider: Wero Santiago Dx/Rx/DC Orders Prescriptions: No Action chlorthalidone 25 mg tablet 25 mg PO DAILY Patient Comments: TAKE 1 TABLET BY MOUTH EVERY DAY metoprolol tartrate 25 mg tablet 25 mg PO BID Patient Comments: TAKE 1 TABLET BY MOUTH TWICE A DAY hydroxyzine HCl 50 mg tablet 100 mg PO QHS nortriptyline 50 mg capsule 100 mg PO QHS Patient Comments: TAKE 1 CAPSULE BY MOUTH EVERYDAY AT BEDTIME glucosamine HCl 1,500 mg tablet 1,000 mg PO DAILY Rx Instructions: administer with a meal losartan 100 mg tablet 100 mg PO DAILY duloxetine [Cymbalta] 30 mg capsule,delayed release(DR/EC) 30 mg PO DAILY amlodipine [Norvasc] 10 mg tablet 10 mg PO DAILY aspirin 325 MG tablet 325 mg PO DAILY@0800 multivitamin Tablet 1 tab PO DAILY ashwagandha root extract 500 mg capsule 1,300 mg PO DAILY magnesium 200 mg tablet 400 mg PO DAILY oxycodone 5 mg tablet 5 - 10 mg PO Q6H PRN (Reason: pain) 5 Days Qty: 15 0RF Primary Care Provider: Eric Odom Referrals: Eric Odom MD [Primary Care Provider] - Print Language: [place] Citizen What to do if you have Problems For any increased pain, shortness of breath, bleeding, nausea or vomiting, chestpain, or any unexpected problems, contact your Primary Care Provider. Call [facility] ([phone]) or report tothe closest Emergency Room. Call 911 if necessary. 12/13/24 0910 Cosigner Signature (if applicable): CC: Dr. Eric Odom MD ~ Signed [facility]11-17-2009 Evaluation note* Diagnosis Onset Date Resolution Status Atherosclerotic heart diseas e of [place] coronary artery without angina pectoris chronic HLD (hyperlipidemia) chronic HTN (hypertension) chronic Stented coronary artery July 22, 2009 [facility] Work Phone: Discharge summary Author Wero Santiago [facility] Note Date/Time December 13, 2024 9:1 0am [facility] Medical Records Department [address] [place] [address] Emergency Department Summary 12/13/24 MR#: [id number] Acct: [id number] Name: ARGELIA COPELAND Rep #:[id number] : 1970 54 From: Wero Gutierrez ggett DO PCP: Dr. Eric Odom MD Status:REG E R Location: ED HPI History of Present Illness Chief Complaint: Wound Narrative Narrative: Chief complaint and HPI: Right first toe blister. 54-year-old male with past medical history of CAD, HTN, HLD, lumbar radiculopathy presents for evaluation of right first toe blister. Patient states that he recently bought new work boots. He states since wearing them the past several days he has developed blisters on his feet. He developed blisters to the bilateral first toes as wellas the right heel. He states yesterday evening the blister on his right first toe broke open with clear drainage. He states it is mildly swollen. He is concerned that it may be infected which is why he presents today. He denies anyfever, chills, nausea, vomiting. Denies any significant pain where the blistersare located. Not diabetic. Review of systems: See HPI Medications: As listed on the chart Allergies: As listed on the chart PFSH: Per chart Vital signs: As listed on the chart. Reviewed. Physical exam: Gen: A&O x3, NAD Head: Normocephalic, atraumatic Eyes: No sclera icterus, conjunctiva clear ENT: Moist mucous membranes CV: Regular rhythm Resp: Nonlabored respiration Musc: Full ROM, no deformity, patient has a 1.5 x 1 cm open blister to the medial aspect of the right great toe. There is some mild clear drainage withoutpurulence. There is mild swelling and erythema. No warmth, no crepitus, no lymphatic streaking. Nontender to palpation except at the open skin. No swelling or tenderness of the other toes, foot, calf. There is another intact blister on the right heel. There is an intact blister on the left great toe. Good capillary refill. DP/PT pulse plus 2 out of 4. Skin: Warm, dry Neuro: Alert, oriented, grossly intact, sensation intact Psych: Cooperative, appropriate mood and affect [facility] Medical History Wears glasses Cancer Arthritis History of Holter monitoring Normal stress echocardiogram History of stress test Hypertension Cardiology follow-up encounter Anxiety Umbilical hernia Essential hypertension Wears contact lenses Depression History of steroid therapy Chronic pain Shortness of breath on exertion Former smoker Edema Myocardial infarct Hx of echocardiogram Back pain right elbow surgery History of lateral wall myocardial infarction (07/22/09) Atherosclerotic heart disease of [place] coronary artery without angina pectoris HTN (hypertension) Morbid obesity with BMI of 40.0-44.9, adult Tobacco use disorder HLD (hyperlipidemia) Family history of ischemic heart disease Home Medications ?Medication ?Instructions ?Recorded ?Last Taken ?Type aspirin 325 mg tablet 325 mg PO DAILY@0800 9 09/15/23 History chlorthalidone 25 mg tablet 25 mg PO DAILY 10/27/20 10:00 History metoprolol tartrate 25 mg tablet 25 mg PO BID 10/27/20 09/22/23 History multivitamin 1 tab PO DAILY 03/27/21 Unkn own History glucosamine HCl 1,500 mg tablet 1,000 mg PO DAILY 08/05 11/23 Unknown History hydroxyzine HCl 50 mg tablet 100 mg PO QHS 08/17/21 Un known History nortriptyline 50 mg capsule 100 mg PO QHS 08/17/21 Unk nown History losartan 100 mg tablet 100 mg PO DAILY 11/17/21 History amlodipine 10 mg tablet (Norvasc) 10 mg PO DAILY 09/1209/22/23 History duloxetine 30 mg capsule,delayed 30 mg PO DAILY Unknown History release (Cymbalta) ashwagandha root extract 500 mg 1,300 mg PO DAILY 09/05 10/29 Unknown History capsule magnesium 200 mg tablet 400 mg PO DAILY 09/16/23 Unk nown History oxycodone 5 mg tablet 5 - 10 mg (1 - 2 x 5 mg) PO Q6H 09/22/23 Unknown Rx PRN pain 5 days #15 tabs Allergy/AdvReac Type Severity Reaction Status Date / Time bee venom protein (honey bee) Allergy Swelling Verified 12/13/24 08:22 atorvastatin AdvReac Severe Myalgias Verified 12/13/24 08:22 cephalexin (From Keflex) AdvReac GIVES ME Verified 12/13/24 08:22 [employer] shellfish derived AdvReac Nausea/Vom/ Verified 12/13/24 08:22 Diarrhea Family History Father , Age 57 of [place], had [place]/CAD at age 39 CAD (coronary artery disease) Myocardial infarction Mother Hypertension Sister Hypertension Surgical History S/P umbilical hernia repair, follow-up exam Hx of surgical procedure History of surgery on arm History of dental surgery Stented coronary artery (07/22/09) Social History household members: other details: mother housing: house current occupational status: employed 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 Blisters developed after obtaining boots. See physical exam findings. Differential diagnosis includes but is not limited to normal wound healing, cellulitis, osteomyelitis. Physical exam is not consistent with osteomyelitis. Suspect either normal wound healing versus early cellulitis. Patient not having any systemic symptoms. I do not think any laboratory workup or imaging is needed. Bacitracin was applied to the wound and wound was dressed. Patient was educatednot to wear the work boots. When lying at home open area to air. Monitor for worsening signs and symptoms. Follow-up with PCP and podiatry. Will start him on prophylactic antibiotics to prevent infection/treat early cellulitis. He confirmed understanding. Patient stable to discharge home. Impression: 1. Right great toe blister Discharge Plan Triage Chief Complaint: Wound ED Provider: Wero Santiago Dx/Rx/DC Orders Prescriptions: No Action chlorthalidone 25 mg tablet 25 mg PO DAILY Patient Comments: TAKE 1 TABLET BY MOUTH EVERY DAY metoprolol tartrate 25 mg tablet 25 mg PO BID Patient Comments: TAKE 1 TABLET BY MOUTH TWICE A DAY hydroxyzine HCl 50 mg tablet 100 mg PO QHS nortriptyline 50 mg capsule 100 mg PO QHS Patient Comments: TAKE 1 CAPSULE BY MOUTH EVERYDAY AT BEDTIME glucosamine HCl 1,500 mg tablet 1,000 mg PO DAILY Rx Instructions: administer with a meal losartan 100 mg tablet 100 mg PO DAILY duloxetine [Cymbalta] 30 mg capsule,delayed release(DR/EC) 30 mg PO DAILY amlodipine [Norvasc] 10 mg tablet 10 mg PO DAILY aspirin 325 MG tablet 325 mg PO DAILY@0800 multivitamin Tablet 1 tab PO DAILY ashwagandha root extract 500 mg capsule 1,300 mg PO DAILY magnesium 200 mg tablet 400 mg PO DAILY oxycodone 5 mg tablet 5 - 10 mg PO Q6H PRN (Reason: pain) 5 Days Qty: 15 0RF Primary Care Provider: Eric Odom Referrals: Eric Odom MD [Primary Care Provider] - Print Language: [place] Citizen What to do if you have Problems For any increased pain, shortness of breath, bleeding, nausea or vomiting, chestpain, or any unexpected problems, contact your Primary Care Provider. Call [facility] ([phone]) or report to the closest Emergency Room. Call 911 if necessary. 12/13/24 0910 <Electronically signed by Wero Santiago DO> Cosigner Signature (if applicable): CC: Dr. Eric Odom MD ~ Signed [facility] Work Phone: Evaluation + Plan note No data available for this section [facility] Evaluation noteNo assessment information available [facility] Work Phone: Evaluation note* Diagnosis Onset Date Resolution Status Umbilical hernia acute Morbid obesity with BMI of 40.0-44.9, adult chronic S/P umbilical hernia repair, follow-up exam acute [facility] Work Phone: Hospital Discharge instructions No data available for this section [facility] Hospital Discharge instructions Additional Instructions Monitor for worsening signs and symptoms. Follow-up with podiatry and PCP. Stop wearing your work boots.[facility] Work Phone: Progress note No data available for this section [facility] Reason for referral (narrative)No reason for referral [facility] Work Phone: Summary Purpose Family History Relationship Condition Age at Onset Recorded Date/T julius father Coronary artery disease Unknown Myocardial infarction Unknown Relationship Condition Age at Onset Recorded Date/T julius father Coronary artery disease Unknown Myocardial infarction Unknown mother Hypertension Unknown sister Hypertension Unknown Advance Directives Advance Directive Response Recorded Date/ Time Advance Directives No February 19 2:56pm Living Will No December 20, 2021 2:46pm Power of Junior Network Engineer No December 20 2:46pm Advance Directive Response Recorded Date/ Time Advance Directives No February 19 1:56pm Living Will No December 20, 2021 1:46pm Power of Junior Network Engineer No December 20 1:46pm Advance Directive Response Recorded Date/ Time Advance Directives No February 19 1:56pm Living Will No September 16 2:52pm Power of Junior Network Engineer No September 16, 2023 2:52pm Advance Directive Response Recorded Date/ Time Living Will No December 13, 2024 8:45am Do you have a Healthcare Power of Junior Network Engineer? No December 13, 2024 8:45am Advance Directives No February 19 2:56pm Advance Directive Response Recorded Date/ Time Living Will No December 13, 2024 8:45am Do you have a Healthcare Power of Junior Network Engineer? No December 13, 2024 8:45am Do you have a Healthcare Power of Junior Network Engineer? No March 04, 2025 1:34pm Advance Directives No February 19 2:56pm Chief Complaint and Reason for Visit Chief Complaint PALPATATIONS burning mouth 3 M FU right foot Reason for Visit Atherosclerotic hear t disease of [place] coronary artery without angina pectoris HLD (hyperlipidemia) HTN (hypertension) Stented coronary artery Chief Complaint 5 M FU PARTIAL TEAR OF COMMON EXTENSOR TEND. RX HERE. Reason for Visit Atherosclerotic hear t disease of [place] coronary artery without angina pectoris HLD (hyperlipidemia) HTN (hypertension) Stented coronary artery Chief Complaint PARTIAL TEAR OF COMM ON EXTENSOR TEND. RX HERE. Chief Complaint PARTIAL TEAR OF COMM ON EXTENSOR TENDON. RX HERE Chief Complaint CONCERN FOR SINUS IN FECTION Umbilical Hernia PREOP \Hernia, Umbilical Repair w/ Mesh \Hernia, Umbilical Repair w/ Mesh HERNIA DOS 09/22 Reason for Visit Umbilical hernia Morbid obesity with BMI of 40.0-44.9, adult S/P umbilical hernia repair, follow-up exam Chief Complaint Admit Date RIGHT FOOT BLISTERS December 13, 2024 8:2 2am Chief Complaint Admit Date RIGHT FOOT BLISTERS December 13, 2024 8:2 2am NSTEMI March 04, 2025 4:31 pm Additional Source Comments (unrecognized sect ion and content) No Status Records FoundNo Status Records FoundNo Status Records Found INFORMATION SOURCE (unrecogn ized section and content) DATE CREATED AUTHOR 03/13/2019 [facility] DATE CREATED AUTHOR AUTHOR'S ORGANIZ ATION 03/11/2022 [facility] ([place]) DATE CREATED AUTHOR AUTHOR'S ORGANIZ ATION 12/22/2024 [facility] Goals (unrecognized section and content) Goals may be documented in a n alternate section No data available for this sectionGoals may be documented in an alternate sectionGoals may be documented in an alternate sectionGoals may be documented in an alternate sectionGoals may be documented in an alternate sectionGoals may be documented in an alternate section Care Teams (unrecognized sec tion and content) Team Status: Active Member Role/Relationship Status Dates Dr. Eric Odom MD Primary Care Provider Active Team Status: Inactive Member Role/Relationship Status Dates Dr. Eric Odom MD Primary Care Provider Active Start: December 13, 2024 End: December 13, 2024 Dr. Wero Santiago , Attending Provider Activ e Start: December 13, 2024 End: December 13, 2024 Dr. Wero Santiago DO Emergency Provider Activ e Start: December 13, 2024 End: December 13, 2024 Team Status: Active Member Role/Relationship Status Dates Dr. Eric Odom MD Primary Care Provider Active Start: March 04, 2025 Dr. Anselmo Rios , Emergency Provider Active Start: March 04, 2025 Dr. Hamilton Corral , Admit Provider Active Start: March 04, 2025 Dr. Hamilton Corral , Attending Provider Active Start: March 04, 2025 Dr. Hamilton Corral , Referring Provider Active Start: March 04, 2025 Team Status: Active Member Role Status Dates Dr. Eric Odom MD Primary Care Provider Active Team Status: Inactive Member Role Status Dates Dr. Eric Odom MD Primary Care Provider Active Start: December 13, 2024 End: December 13, 2024 Dr. Wero Santiago DO Emergency Provider Activ e Start: December 13, 2024 End: December 13, 2024 Team Status: Active Member Role Status Dates Dr. Eric Odom MD Family Provider Active Dr. Eric Odom MD Primary Care Provider Active Team Status: Inactive Member Role Status Dates Dr. Eric Odom MD Primary Care Provider Active LAURIE SANON Attending Provider, Referring Provider Active FOR RECORDS PERTAINING TO PATIENTS WHO ARE [...] BE BASED ON THE PRIMARY CLINICAL RECORDS. [email or web address] provides no warranty or guarantee of the accuracy or completeness of information in this document.
[2025-03-05 06:21] LABS: Hematocrit 45.3 % (40-54); Hemoglobin 15.4 g/dL (13.0-16.5); Mean Corp Hgb Conc 34.0 g/dL (32-36); Mean Corpuscular Volume 88.1 fL (80-94); Mean Platelet Vol. 10.0 fl (6.2-12.0); Platelet Count 325 K/mm3 (150-450); RBC Distribution Width CV 13.2 % (11.6-14.6); RBC Distribution Width SD 42.7 fl (35.1-43.9); Red Blood Count 5.14 M/mm3 (4.6-6.2); White Blood Count 8.6 K/mm3 (4.4-11.0)
[2025-03-05 06:28] LABS: Partial Thromboplast Time 25.8 Seconds (24.1-36.2)
[2025-03-05] MEDS: Heparin Injection (Vial) 5,000 UNIT/ML VIAL IV ×3 (06:47→22:25)
[2025-03-05 06:55] LABS: Anion Gap 13 (5-15); BUN 13 mg/dL (4-19); BUN/Creat Ratio 12.6 RATIO (10-20); Calcium,Total 9.2 mg/dL (7.6-11.0); Carbon Dioxide 23.1 mmol/L (21.0-32.0); Chloride 104 mmol/L (98-108); Cholesterol 228 mg/dL (<=200); Estimated Creatinine Clearance 142.99 ml/min (50-250); Glucose 101 mg/dL (70-99); Low Density Lipoprotein Calc. 122 mg/dL; Potassium 4.3 mmol/L (3.3-5.1); Triglycerides 345 mg/dL; Very Low Density Lipoprotein 69 mg/dL (5-40); cholesterol:hdl ratio screen 6.16
--- NOTE | 2025-03-05 08:09 | PN.HOSP_ITS ---
Reason for Visit Reason for Visit: Diagnoses Non-ST elevation (NSTEMI) myocardial infarction (03/04/25) Objective Data Objective Data Vital Signs: Vital Signs Temp Pulse Resp BP Pulse Ox O2 Del Method 97.8 F 67 16 133/60 H 94 Room Air 03/05/25 04:30 03/05/25 04:30 03/05/25 04:30 03/05/25 04:30 03/05/25 04:30 03/05/25 08:00 Oxygen Delivery Method Room Air Weight: 380 lb 8.285 oz Body Mass Index (BMI) 46.3 Intake & Output: Intake and Output for Last 24 Hours 03/03/25 03/04/25 03/05/25 23:59 23:59 23:59 Intake Total 1061.67 / 1301.67 335.4 / 335.4 Balance 1061.67 / 1301.67 335.4 / 335.4 Lab / Micro Data 03/05/25 05:45 03/05/25 05:45 Labs: Laboratory Results - last 24 hr 03/04/25 13:40: WBC 7.3, RBC 5.30, Hgb 16.1, Hct 45.7, MCV 86.2, MCH 30.4, MCHC 35.2, RDW Std Deviation 41.0, RDW Coeff of Sandy 13.2, Plt Count 322, MPV 10.5, Immature Gran % (Auto) 0.600, Neut % (Auto) 69.0, Lymph % (Auto) 22.4, Steele % (Auto) 5.5, Eos % (Auto) 1.4, Baso % (Auto) 1.1 H, Absolute Neuts (auto) 5.0, Absolute Lymphs (auto) 1.63, Nucleated RBC % 0, PT 13.4, INR 1.0, APTT 23.0 L, D -Dimer Quant (PE/DVT) 0.59 H*, 03/04/25 15:30: Sodium 136, Potassium 4.0, Chloride 102, Carbon Dioxide 22.5, Anion Gap 11, BUN 11, Creatinine 0.95, Estim Creat Clear Calc 151.76, Est GFR (MDRD) Non-Af 95, BUN/Creatinine Ratio 11.3, Glucose 98, Hemoglobin A1c 5.9 H, Calcium 8.4, Troponin T High Sens 34 H, TSH 1.510 03/04/25 18:03: Troponin T High Sens 41 H D 03/04/25 19:48: Troponin T Hi Sens 2 Hr 31 H 03/04/25 21:53: APTT 24.1, Troponin T Hi Sens 4Hr 23 H 03/05/25 05:45: WBC 8.6, RBC 5.14, Hgb 15.4, Hct 45.3, MCV 88.1, MCH 30.0, MCHC 34.0, RDW Std Deviation 42.7, RDW Coeff of Sandy 13.2, Plt Count 325, MPV 10.0, APTT 25.8, Sodium 139, Potassium 4.3, Chloride 104, Carbon Dioxide 23.1, Anion Gap 13, BUN 13, Creatinine 1.00, Estim Creat Clear Calc 142.99, Est GFR (MDRD) Non-Af 89, BUN/Creatinine Ratio 12.6, Glucose 101 H, Calcium 9.2, Triglycerides 345 H, Cholesterol 228 H, LDL Cholesterol, Calc 122, VLDL Cholesterol 69 H, HDL Cholesterol 37 L, Cholesterol/HDL Ratio 6.16 Radiography Diagnostic Testing: Radiology Impression Chest X-Ray 03/04/25 14:02 IMPRESSION: Lungs appear clear of acute disease. No pleural effusion or pneumothorax is noted. The cardiomediastinal silhouette is within the normal range. Left glenohumeral joint degenerative changes are noted. Degenerative changes of the visualized spine are also seen. No acute osseous process is seen. Reading Location: [facility] Chest CTA 03/04/25 15:06 IMPRESSION: No acute pulmonary emboli. No focal consolidations. Reading Location: [facility] Physical Exam Narrative Seen and examined. History taken from the patient. History of NH in 2019 with LAD stent in [facility]. At this time he complained of left lower scapular pain with radiation to left shoulder without related to activity or exertion for last several days. No precordial chest pain. He felt similar characteristics of pain when he had NH in 2009. No significant associated with shortness of breath Physical exam General: Alert, Oriented x3, Cooperative. Morbid obesity BMI 46.3 kg/m? HEENT: Atraumatic, PERRLA, EOMI, Normocephalic. Oral: No Gingival or Mucosal Lesions/ Ulcerations Neck: Supple, No JVD, Negative Carotid Bruits Chest wall/Lungs: Air entry diminished in bilateral lung bases. No crepitation/rhonchi Cardiovascular: Regular rate and rhythm, Normal S1,S2, No M/G/R Abdomen: Bowel Sounds Present, Soft, Non Tender, Non-Distended : No dysuria. No renal angle tenderness. No suprapubic tenderness. Extremities: No edema, Capillary Refill Less than 3 Seconds Skin: No rashes, No breakdown Musculoskeletal: No Tenderness to Palpation of Joints or Extremities. ROM intact Neurological: Cranial nerves II-XII grossly intact, DTR 2+/4. No acute focal neurological deficit. Psych/Mental Status: Normal Affect, Appropriate. Assessment & Plan Assessment/Plan (1) Non-ST elevation NH (NSTEMI): PLAN: Plan Patient is a 54-year-old male who presented to [facility] ED on 03/04/2025 with chest pain. 1. NSTEMI; history of CAD with stenting, hypertension, hyperlipidemia ? Admit under inpatient status to PCU. Cardiology consulted. High suspicion for NSTEMI type I given prior history of CAD with stenting and typical chest pain with improvement with rest. EKG with no ischemic changes noted. 03/05: Serial troponins 41, 31 and 23. Fasting profile TG 345, TC 228, LDL 122, VLDL 69, HDL 37. A1c 5.9%. Credit Underwriter recommended to start heparin drip. N.p.o. plan for left heart cath tomorrow. 2D echo is ordered. Continue hold if heart rate less than 60/min and if persistently low between 60-70/m, can decrease the dose to 25 mg twice daily in consultation his PCP, amlodipine. Hold losartan for cardiac cath. 2. Chronic low back pain with radiculopathy ? Patient does report taking ibuprofen 800 mg frequently for this, which could contribute to NSTEMI as above. Hold NSAIDs going forward. Continue home duloxetine. 3. Class III obesity ? BMI 46 on admit. Encouraged lifestyle modifications. 4. Marijuana use ? Reports occasional use. Discussed cessation on discharge. DVT prophylaxis: Not indicated, on heparin drip CODE STATUS: Full code, verified Expected disposition: TBD 03/04/25 13:40: WBC 7.3, RBC 5.30, Hgb 16.1, Hct 45.7, MCV 86.2, MCH 30.4, MCHC 35.2, RDW Std Deviation 41.0, RDW Coeff of Sandy 13.2, Plt Count 322, MPV 10.5, Immature Gran % (Auto) 0.600, Neut % (Auto) 69.0, Lymph % (Auto) 22.4, Steele % (Auto) 5.5, Eos % (Auto) 1.4, Baso % (Auto) 1.1 H, Absolute Neuts (auto) 5.0, Absolute Lymphs (auto) 1.63, Nucleated RBC % 0, PT 13.4, INR 1.0, APTT 23.0 L, D -Dimer Quant (PE/DVT) 0.59 H*, 03/04/25 15:30: Sodium 136, Potassium 4.0, Chloride 102, Carbon Dioxide 22.5, Anion Gap 11, BUN 11, Creatinine 0.95, Estim Creat Clear Calc 151.76, Est GFR (MDRD) Non-Af 95, BUN/Creatinine Ratio 11.3, Glucose 98, Hemoglobin A1c 5.9 H, Calcium 8.4, Troponin T High Sens 34 H, TSH 1.510 03/04/25 18:03: Troponin T High Sens 41 H D 03/04/25 19:48: Troponin T Hi Sens 2 Hr 31 H 03/04/25 21:53: APTT 24.1, Troponin T Hi Sens 4Hr 23 H 03/05/25 05:45: WBC 8.6, RBC 5.14, Hgb 15.4, Hct 45.3, MCV 88.1, MCH 30.0, MCHC 34.0, RDW Std Deviation 42.7, RDW Coeff of Sandy 13.2, Plt Count 325, MPV 10.0, APTT 25.8, Sodium 139, Potassium 4.3, Chloride 104, Carbon Dioxide 23.1, Anion Gap 13, BUN 13, Creatinine 1.00, Estim Creat Clear Calc 142.99, Est GFR (MDRD) Non-Af 89, BUN/Creatinine Ratio 12.6, Glucose 101 H, Calcium 9.2, Triglycerides 345 H, Cholesterol 228 H, LDL Cholesterol, Calc 122, VLDL Cholesterol 69 H, HDL Cholesterol 37 L, Cholesterol/HDL Ratio 6.16 Charges/Coding Visit Charges Inpatient E&M: 01702 Subs Hosp L2
--- NOTE | 2025-03-05 09:55 | CASEMGMT ---
RN?CM?PANEL BUILDER?CM?to room to meet with patient for initial transition planning/care coordination?assessment.?RN?CM?introduced self and role at [facility].? Pt voices understanding and consents to?assessment?at this time.? Pt resting in bed in no distress at this time.? Pt is A/O at this time and answers all questions appropriately.?? Care providers, pharmacy, and demographics verified/updated at this time. Strata: 2 PCP: Dr Odom Specialists: none [facility]erred [facility]acy[facility] Insurance: [employer] Prescription Benefit:?yes LNOK: MomKaitlin. SisterTuyet Living Arrangements: Lives w/mother. Independent w/ADL's and IADL's. Works full--time. Transportation:?Pt states drives self and states no transportation concerns at this time.? DME: ? Denies using any DME and denies needs.? HHC/SNF: No hx of either. No needs identfied. Denies need for OP therapy. Pt wishes to return home and states has no concerns with going home at time of discharge. CM?to follow for any discharge planning/needs.? Pt voices no concerns/needs at this time.? Advised pt to ask for?CM?if any further questions/concerns/needs arise.? Voices understanding. PLAN:??Home Zheng CRYSTALN?RN?CM
[2025-03-05] MEDS: HEPARIN/D5w 25,000 UNITS 25,000 UNITS/250 ML IV.SOLN. 14 UNITS CONT INF (13:16)
--- NOTE | 2025-03-05 13:20 | PCM.CONS.C ---
Assessment & Plan Assessment/Plan (1) History of percutaneous transluminal coronary angioplasty: (2) History of lateral wall myocardial infarction: (3) Tobacco use disorder: (4) HLD (hyperlipidemia): (5) Family history of ischemic heart disease: (6) Stented coronary artery: PLAN: 54-year-old patient with known history of CAD with prior PCI and stent in 2008 to the proximal ramus artery. He does not follow-up with cardiology and his presentation with having symptoms of back pain. Which is chronic lower back pain and felt dizzy lightheaded while he was in the shower. Evaluated here by EKG which showed normal sinus rhythm through the ED and admitted for further cardiac evaluation. Also noted he had mild elevation of high sensitive troponin Patient uses marijuana. And has a history of lumbar radiculopathy. Cardiac care plan; Based on his clinical presentation and not being seen and followed by shank breaker since 2008 with a prior history of proximal ramus stent Recommended to admit to the hospital and to start medical treatment with heparin and aspirin Patient also declined to take any statin as he had history of myalgia with the statin. I recommended to evaluate him further by echocardiogram as well we will assess by cardiac catheterization to assess patency of the stent and evaluate for progression of CAD. Will discuss further plan based on his result of cardiac evaluation which will include echocardiogram and the cardiac catheterization/right radial artery approach Haritha Hernandez MD,[facility] HPI Consult Data Date of Consult: 03/05/25 HPI Narrative Reason for Consultation: CAD/non-STEMI HPI Narrative: ARGELIA COPELAND, is a 54 M who presents [facility] Medical History (Updated 03/04/25 @ 16:[address] Anselmo Rios, DO) Wears glasses Cancer Arthritis History of Holter monitoring Normal stress echocardiogram History of stress test Hypertension Cardiology follow-up encounter Anxiety Umbilical hernia Essential hypertension Wears contact lenses Depression History of steroid therapy Chronic pain Shortness of breath on exertion Former smoker Edema Myocardial infarct Hx of echocardiogram Back pain right elbow surgery History of lateral wall myocardial infarction (07/22/09) Atherosclerotic heart disease of grindstone coronary artery without angina pectoris HTN (hypertension) Morbid obesity with BMI of 40.0-44.9, adult Tobacco use disorder HLD (hyperlipidemia) Family history of ischemic heart disease Home Medications ?Medication ?Instructions ?Recorded ?Last Taken ?Type aspirin 325 mg tablet 325 mg PO DAILY@0800 11/09/18 03/04/25 History metoprolol tartrate 25 mg tablet 25 mg PO BID 10/27/20 03/04/25 History multivitamin 1 tab PO DAILY 03/27/21 03/03/25 History glucosamine HCl 1,500 mg tablet 1,000 mg PO DAILY 08/17/21 03/04/25 History losartan 100 mg tablet 100 mg PO DAILY 11/17/21 03/04/25 History amlodipine 10 mg tablet (Norvasc) 10 mg PO DAILY 09/12/23 03/04/25 History duloxetine 30 mg capsule,delayed 30 mg PO DAILY 09/12/23 03/04/25 History release (Cymbalta) ashwagandha root extract 500 mg 1,300 mg PO DAILY 09/16/23 03/03/25 History capsule magnesium 200 mg tablet 400 mg PO DAILY 09/16/23 Unknown History coenzyme Q10 100 mg capsule (Co 300 mg PO DAILY 03/04/25 03/03/25 History Q-10) ibuprofen 200 mg tablet (Addaprin) 800 mg PO Q8H knee pain 03/04/25 03/04/25 History magnesium 250 mg tablet 1,000 mg PO DAILY 03/04/25 03/04/25 History Allergy/AdvReac Type Severity Reaction Status Date / Time bee venom protein (honey bee) Allergy Swelling Verified 03/04/25 13:35 atorvastatin AdvReac Severe Myalgias Verified 03/04/25 13:35 cephalexin (From Keflex) AdvReac GIVES ME Verified 03/04/25 13:35 THE J[employer]TERS shellfish derived AdvReac Nausea/Vom/ Verified 03/04/25 13:35 Diarrhea Family History Father , Age 57 of [place], had UT/CAD at age 39 CAD (coronary artery disease) Myocardial infarction Mother Hypertension Sister Hypertension Surgical History (Updated 03/04/25 @ 17:20 by Ingris Browning) History of coronary artery stent placement S/P umbilical hernia repair, follow-up exam Hx of surgical procedure History of surgery on arm History of dental surgery Stented coronary artery (07/22/09) Social History household members: other details: mother housing: house current occupational status: employed 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[employer] 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: Former smoker pack-years: 20 alcohol intake: never do you feel safe at home: Yes Physical Exam Cardio Cardio Narrative: Seen and evaluated at bedside along with the nursing staff The cardiac rhythm is sinus rhythm he is comfortable sitting in bed does not have any active chest pain symptoms mainly back pain Cardiac exam S1-S2 is regular Chest exam is clear auscultation bilateral Examination lower extremity no lower extremity edema. Risk Stratification Risk Stratification Applicable: No Objective Data Vital Signs: Vital Signs Temp Pulse Resp BP Pulse Ox O2 Del Method 97.6 F L 65 14 164/103 H 95 Room Air 03/05/25 10:36 03/05/25 10:38 03/05/25 10:36 03/05/25 10:36 03/05/25 10:36 03/05/25 10:36 Oxygen Delivery Method Room Air Weight: 380 lb 8.285 oz Body Mass Index (BMI) 46.3 Intake & Output: Intake and Output for Last 24 Hours 03/03/25 03/04/25 03/05/25 23:59 23:59 23:59 Intake Total 1061.67 / 1301.67 425.7 / 425.7 Balance 1061.67 / 1301.67 425.7 / 425.7 Lab / Micro Data 03/05/25 05:45 03/05/25 05:45 Labs: Laboratory Results - last 24 hr 03/04/25 13:40: WBC 7.3, RBC 5.30, Hgb 16.1, Hct 45.7, MCV 86.2, MCH 30.4, MCHC 35.2, RDW Std Deviation 41.0, RDW Coeff of Sandy 13.2, Plt Count 322, MPV 10.5, Immature Gran % (Auto) 0.600, Neut % (Auto) 69.0, Lymph % (Auto) 22.4, [place] % (Auto) 5.5, Eos % (Auto) 1.4, Baso % (Auto) 1.1 H, Absolute Neuts (auto) 5.0, Absolute Lymphs (auto) 1.63, Nucleated RBC % 0, PT 13.4, INR 1.0, APTT 23.0 L, D-Dimer Quant (PE/DVT) 0.59 H*, Sodium Cancelled, Potassium Cancelled, Chloride Cancelled, Carbon Dioxide Cancelled, Anion Gap Cancelled, BUN Cancelled, Creatinine Cancelled, Estim Creat Clear Calc Cancelled, Est GFR (MDRD) Non-Af Cancelled, BUN/Creatinine Ratio Cancelled, Glucose Cancelled, Calcium Cancelled, Troponin T High Sens Cancelled 03/04/25 15:30: Sodium 136, Potassium 4.0, Chloride 102, Carbon Dioxide 22.5, Anion Gap 11, BUN 11, Creatinine 0.95, Estim Creat Clear Calc 151.76, Est GFR (MDRD) Non-Af 95, BUN/Creatinine Ratio 11.3, Glucose 98, Hemoglobin A1c 5.9 H, Calcium 8.4, Troponin T High Sens 34 H, TSH 1.510 03/04/25 18:03: Troponin T High Sens 41 H D 03/04/25 19:48: Troponin T Hi Sens 2 Hr 31 H 03/04/25 21:53: APTT 24.1, Troponin T Hi Sens 4Hr 23 H 03/05/25 05:45: WBC 8.6, RBC 5.14, Hgb 15.4, Hct 45.3, MCV 88.1, MCH 30.0, MCHC 34.0, RDW Std Deviation 42.7, RDW Coeff of Sandy 13.2, Plt Count 325, MPV 10.0, APTT 25.8, Sodium 139, Potassium 4.3, Chloride 104, Carbon Dioxide 23.1, Anion Gap 13, BUN 13, Creatinine 1.00, Estim Creat Clear Calc 142.99, Est GFR (MDRD) Non-Af 89, BUN/Creatinine Ratio 12.6, Glucose 101 H, Calcium 9.2, Triglycerides 345 H, Cholesterol 228 H, LDL Cholesterol, Calc 122, VLDL Cholesterol 69 H, HDL Cholesterol 37 L, Cholesterol/HDL Ratio 6.16 Cardiology Labs/Tests 03/04/25 13:40: WBC 7.3, RBC 5.30, Hgb 16.1, Hct 45.7, MCV 86.2, MCH 30.4, MCHC 35.2, Plt Count 322, MPV 10.5, Immature Gran % (Auto) 0.600, Neut % (Auto) 69.0, Lymph % (Auto) 22.4, [place] % (Auto) 5.5, Eos % (Auto) 1.4, Baso % (Auto) 1.1 H, Absolute Neuts (auto) 5.0, Nucleated RBC % 0, PT 13.4, INR 1.0, APTT 23.0 L, D-Dimer Quant (PE/DVT) 0.59 H*, Sodium Cancelled, Potassium Cancelled, Chloride Cancelled, Carbon Dioxide Cancelled, Anion Gap Cancelled, BUN Cancelled, Creatinine Cancelled, Est GFR (MDRD) Non-Af Cancelled, BUN/Creatinine Ratio Cancelled, Glucose Cancelled, Calcium Cancelled 03/04/25 15:30: Sodium 136, Potassium 4.0, Chloride 102, Carbon Dioxide 22.5, Anion Gap 11, BUN 11, Creatinine 0.95, Est GFR (MDRD) Non-Af 95, BUN/Creatinine Ratio 11.3, Glucose 98, Hemoglobin A1c 5.9 H, Calcium 8.4 03/04/25 21:53: APTT 24.1 03/05/25 05:45: WBC 8.6, RBC 5.14, Hgb 15.4, Hct 45.3, MCV 88.1, MCH 30.0, MCHC 34.0, Plt Count 325, MPV 10.0, APTT 25.8, Sodium 139, Potassium 4.3, Chloride 104, Carbon Dioxide 23.1, Anion Gap 13, BUN 13, Creatinine 1.00, Est GFR (MDRD) Non-Af 89, BUN/Creatinine Ratio 12.6, Glucose 101 H, Calcium 9.2, Triglycerides 345 H, Cholesterol 228 H, VLDL Cholesterol 69 H, HDL Cholesterol 37 L, Cholesterol/HDL Ratio 6.16 Rhythm: EKG: ECHO: Stress Test: Cardiac Cath: PCI: CT Surgery: Holter monitor: EPS: PPM: CXR: Chest CT Scan: Radiography Diagnostic Testing: Radiology Impression Chest X-Ray 03/04/25 14:02 IMPRESSION: Lungs appear clear of acute disease. No pleural effusion or pneumothorax is noted. The cardiomediastinal silhouette is within the normal range. Left glenohumeral joint degenerative changes are noted. Degenerative changes of the visualized spine are also seen. No acute osseous process is seen. Reading Location: [place] [id number] Chest CTA 03/04/25 15:06 IMPRESSION: No acute pulmonary emboli. No focal consolidations. Reading Location: [id number]
[2025-03-05 14:43] LABS: Partial Thromboplast Time 25.2 Seconds (24.1-36.2)
[2025-03-05 21:45] LABS: Partial Thromboplast Time 28.1 Seconds (24.1-36.2)
[2025-03-06] VITALS (14 sets, daily range): BP systolic 136–183; BP diastolic 64–107; PULSE 57–77; RESP 16; TEMP 36.4–36.9; O2SAT 93–98
[2025-03-06] MEDS: HEPARIN/D5w 25,000 UNITS 25,000 UNITS/250 ML IV.SOLN. 18 UNITS CONT INF (03:39)
[2025-03-06 06:49] LABS: Partial Thromboplast Time 27.4 Seconds (24.1-36.2)
[2025-03-06] MEDS: Heparin Injection (Vial) 5,000 UNIT/ML VIAL IV (07:06)
[2025-03-06 07:43] LABS: Troponin T High Sensitivity 11 ng/L (<=22)
--- NOTE | 2025-03-06 07:54 | EKG12_ITS ---
Test Reason : Blood Pressure : */* mmHG Vent. Rate : 59 BPM Atrial Rate : 59 BPM P-R Int : 208 ms QRS Dur : 100 ms QT Int : 432 ms P-R-T Axes : 30 58 40 degrees QTcB Int : 427 ms Sinus bradycardia Otherwise normal ECG When compared with ECG of 04-Mar-2025 13:32, No significant change was found Confirmed by MAURI WOODALL, RUTH ([id number]), editorial cartoonist PEPPER HARGROVE ([id number]) on 03/06/2025 1:52:25 PM Referred By: Hamilton Corral Confirmed By: RUTH DOTSON MD
[2025-03-06 08:18] LABS: AST(SGOT) 21 U/L (<=37); Alanine Aminotransfer ALT/SGPT 24 U/L (<=46); Albumin, Serum 3.8 g/dL (3.5-5.0); Alkaline Phosphatase 97 U/L (40-129); Anion Gap 16 (5-15); BUN 11 mg/dL (4-19); BUN/Creat Ratio 11.8 RATIO (10-20); Calcium,Total 9.1 mg/dL (7.6-11.0); Carbon Dioxide 21.0 mmol/L (21.0-32.0); Chloride 102 mmol/L (98-108); Estimated Creatinine Clearance 147.41 ml/min (50-250); Globulin 3.1 g/dL (2.2-4.2); Glucose 90 mg/dL (70-99); Potassium 3.8 mmol/L (3.3-5.1)
--- NOTE | 2025-03-06 10:30 | PCM.DC ---
Discharge Instructions DC O2, CPAP, BIPAP needs Home O2 Discharge instructions: No Follow Up Care Test Results: Test results from this visit will be discussed in further detail at your follow-up appointment, if applicable. Discharge Plan Admission Admit Date/Time: 03/04/25 16:31 Attending Provider: Sam Cuellar Primary Care Provider: Eric Odom Consulting Providers: Haritha Hernandez; Hamilton Corral Discharge Orders/Prescriptions Prescriptions: New aspirin 81 mg Tablet,Chewable 81 mg PO BREAKFAST 90 Days Qty: 90 1RF chlorthalidone 12.5 mg tablet 12.5 mg PO DAILY 30 Days Qty: 30 1RF clopidogrel [Plavix] 75 mg tablet 75 mg PO DAILY 30 Days Qty: 30 2RF rosuvastatin 10 mg tablet 10 mg PO DAILY 30 Days Qty: 30 2RF Continued metoprolol tartrate 25 mg tablet 25 mg PO BID Patient Comments: TAKE 1 TABLET BY MOUTH TWICE A DAY glucosamine HCl 1,500 mg tablet 1,000 mg PO DAILY Rx Instructions: administer with a meal losartan 100 mg tablet 100 mg PO DAILY duloxetine [Cymbalta] 30 mg capsule,delayed release(DR/EC) 30 mg PO DAILY amlodipine [Norvasc] 10 mg tablet 10 mg PO DAILY aspirin 325 MG tablet 325 mg PO DAILY@0800 multivitamin Tablet 1 tab PO DAILY magnesium 200 mg tablet 400 mg PO DAILY coenzyme Q10 [Co Q-10] 100 mg capsule 300 mg PO DAILY Held ashwagandha root extract 500 mg capsule 1,300 mg PO DAILY Hold Instructions: Talk to PCP Discontinued magnesium 250 mg tablet 1,000 mg PO DAILY ibuprofen [Addaprin] 200 mg tablet 800 mg PO Q8H Referrals / Follow Up: Eric Odom MD [Primary Care Provider] - Angelica Whitman PA [Med Staff - [facility] Practice Prof] - Within 2 Weeks Disposition Disposition (needs filled in before D/C Order can be placed): Home, Self Care
--- NOTE | 2025-03-06 10:41 | PCI.CARDCATH ---
PCI Cardiac Cath Report PCI Report: Left heart catheterization; 1. Moderate sedation 2. Selective left coronary angiography 3. Selective right coronary angiography 4. Measurement of LVEDP 5. Pullback pressure from the LV to the aorta 6. Placement of TR band to close the right radial artery arteriotomy site. Preprocedure diagnosis 54-year-old patient with history of CAD Has a prior PCI and stent, to the ramus intermedius artery. Patient has history of tobacco use disorder, hypertension, hyperlipidemia Had a history of lateral wall myocardial infarction. And has a very mild elevation of high-sensitivity troponins. Troponins around 34, trended to 23. Patient has been noncompliant with, no follow-up with a sales developer since 2008. Based on the clinical presentation he was scheduled for cardiac catheterization today. Patient treated with medical therapy in the form of aspirin, heparin. He could not tolerate statin. Consent; Risk and benefits of the procedure explained in detail patient elected to proceed informed consent obtained. Access 6 Surinamese sheath placed in the right radial artery. Diagnostic catheter used 1. 5 Surinamese Grand Cane catheter. 2. 5 Surinamese JR4 Procedure in detail; Patient brought to the Engineering Manager in fasting state Right radial artery area prepped and draped in the usual sterile fashion. With proceed with a diagnostic catheter using 5 Surinamese Grand Cane catheter advancing aortic cannulated left main Selective angiographic the left coronary system were obtained Following this catheter exchanged for 5 Surinamese JR4 Cross the aortic valve in place in the mid ventricle LVEDP was measured Pullback pressure recorded Following this catheter removed Engage the RCA Following this all catheter removed And hemostasis maintained with a TR band. To the right radial artery Hemodynamics; LVEDP measuring 19 mmHg 2. There is no systolic gradient across aortic valve. Coronary angiography; Left main coronary artery large vessel, bifurcating into LAD and left circumflex 1. At the distal part of the left main there is a ruptured plaque With distal left main around 40% 2. The left anterior descending artery is a large vessel reach all the way to the apex There are diffuse atherosclerosis involving the mid to distal left anterior descending artery The distal part which is at the apex is around 60%. 3. D1 which is a small to moderate in size Had ostial lesion around 60 to 70% 4. Ramus intermedius stent is patent With nonobstructive atherosclerosis involving the proximal part 5. Left circumflex ostial lesion of around 40%. 6. OM1 has a lesion of 50 to 60%, segmental lesions which is a small to moderate size vessel around 50-60% in the proximal and midportion. 7. RCA large dominant ectatic vessel. With nonobstructive atherosclerosis involving the proximal and mid segment of around 30%. Conclusion and recommendation; This is a 54-year-old patient with history of CAD prior PCI and stent in July 22, 2009 to the ramus intermedius no follow-up since then And was not on any medical therapy presented with symptoms of chest pain very mild elevation of high sensitive troponins. Advised the patient lifestyle change cessation of smoking, weight loss, aggressive treatment for underlying risk factors with the follow-up with cardiology and primary care physician. Based on the finding of cardiac catheterization recommendation is medical therapy and advised to follow-up with the sales developer here at [facility] for continuation of cardiac care. Patient can be discharged from cardiac standpoint with recommend to start on dual antiplatelet therapy with Plavix aspirin, high-dose statin, beta-hernandez as tolerated. No complication in the Engineering Manager Haritha Hernandez MD,FAC,[facility] mask layout designer
--- NOTE | 2025-03-06 12:35 | PCM.DC.SUM ---
Providers Date of Admission: 03/04/25 Date of Discharge: 03/06/25 Primary Care Physician: Dr. Eric Odom MD Consultations 03/04/25 17:16 Consult: Cardiology Routine Consulting Provider: Haritha Hernandez Reason for Consult: NSTEMI EMERGENT Consult: No MD Notified: Yes Date Notified: 03/04/25 Time Notified: 17:21 Method of Notification: Text Reason For Visit: NSTEMI Diagnosis Discharge Diagnosis (1) History of percutaneous transluminal coronary angioplasty: Status: Chronic Code(s): Z98.61 - Coronary angioplasty status (2) History of lateral wall myocardial infarction: Status: Chronic Code(s): I25.2 - Old myocardial infarction (3) Tobacco use disorder: Status: Chronic Code(s): F17.200 - Nicotine dependence, unspecified, uncomplicated (4) HLD (hyperlipidemia): Status: Chronic Code(s): E78.5 - Hyperlipidemia, unspecified (5) Family history of ischemic heart disease: Status: Chronic Code(s): Z82.49 - Family history of ischemic heart disease and other diseases of the circulatory system (6) Stented coronary artery: Status: Chronic Code(s): Z95.5 - Presence of coronary angioplasty implant and graft Plan Patient is a 54-year-old male who presented to [facility] ED on 03/04/2025 with chest pain. 1. NSTEMI; history of CAD with stenting, hypertension, hyperlipidemia ? Admit under inpatient status to PCU. Cardiology consulted. High suspicion for NSTEMI type I given prior history of CAD with stenting and typical chest pain with improvement with rest. EKG with no ischemic changes noted. 03/05: Serial troponins 41, 31 and 23. Fasting profile TG 345, TC 228, LDL 122, VLDL 69, HDL 37. A1c 5.9%. Saxophone Teacher recommended to start heparin drip. N.p.o. plan for left heart cath tomorrow. 2D echo is ordered. Continue hold if heart rate less than 60/min and if persistently low between 60-70/m, can decrease the dose to 25 mg twice daily in consultation his PCP, amlodipine. Hold losartan for cardiac cath. 03/06: Patient had cardiac catheter today. Cardiac cath reported shows moderate disease in 3 vessels. Distal LM ruptured plaque, around 40%. LAD large vessel, diffuse mid to distal around 60%. D1 is small to moderate, ostial 60 to 70%, ramus intermedius stent patent. LCx ostial around 40%. OM 50 to 60%. RCA large dominant ectatic vessel, around 30%. Mild elevation in isolated troponin. Aggressive medical treatment. Discussed with writer recommended dual antiplatelet regiment, Plavix for 1 year, aspirin indefinitely, beta-amador, losartan. Patient has myalgia with atorvastatin and he said he could not walk therefore all statins are contraindicated. Lipid profile TC 228, TG 1045, HDL 37, VLDL 69, LDL 122. Advised to follow with PCP to discuss for Vascepa but it might need prior authorization for 2. Uncontrolled hypertension:Blood pressure uncontrolled in the 140s to 150s. Morning 180/103. Labetalol IV 20 mg ordered. Blood pressure is in 140s to 150s at baseline, can be discharged. Heart rate on lower side in 50s. On losartan and amlodipine. Chlorthalidone 12.5 mg prescribed. Chronic low back pain with radiculopathy ? Patient does report taking ibuprofen 800 mg frequently for this, which could contribute to NSTEMI as above. Hold NSAIDs going forward. Continue home duloxetine. 3. Class III obesity ? BMI 46 on admit. Encouraged lifestyle modifications. 4. Marijuana use ? Reports occasional use. Discussed cessation on discharge. DVT prophylaxis: Not indicated, on heparin drip CODE STATUS: Full code, verified Discharge medication reconciliation done. Discharge follow-up instructions completed. Discharge process discussed with the patient and all questions were answered to patient's satisfaction. Follow with PCP in 1 to 2 weeks Total time spent, exact 35 minutes on discharge meds reconciliation, examination, coordination of care with nurses and ancillary staff, review of imaging and blood test and discussion with the patient on follow-up instructions. 03/04/25 13:40: WBC 7.3, RBC 5.30, Hgb 16.1, Hct 45.7, MCV 86.2, MCH 30.4, MCHC 35.2, RDW Std Deviation 41.0, RDW Coeff of Sandy 13.2, Plt Count 322, MPV 10.5, Immature Gran % (Auto) 0.600, Neut % (Auto) 69.0, Lymph % (Auto) 22.4, [place] % (Auto) 5.5, Eos % (Auto) 1.4, Baso % (Auto) 1.1 H, Absolute Neuts (auto) 5.0, Absolute Lymphs (auto) 1.63, Nucleated RBC % 0, PT 13.4, INR 1.0, APTT 23.0 L, D-Dimer Quant (PE/DVT) 0.59 H*, 03/04/25 15:30: Sodium 136, Potassium 4.0, Chloride 102, Carbon Dioxide 22.5, Anion Gap 11, BUN 11, Creatinine 0.95, Estim Creat Clear Calc 151.76, Est GFR (MDRD) Non-Af 95, BUN/Creatinine Ratio 11.3, Glucose 98, Hemoglobin A1c 5.9 H, Calcium 8.4, Troponin T High Sens 34 H, TSH 1.510 03/04/25 18:03: Troponin T High Sens 41 H D 03/04/25 19:48: Troponin T Hi Sens 2 Hr 31 H 03/04/25 21:53: APTT 24.1, Troponin T Hi Sens 4Hr 23 H 03/05/25 05:45: WBC 8.6, RBC 5.14, Hgb 15.4, Hct 45.3, MCV 88.1, MCH 30.0, MCHC 34.0, RDW Std Deviation 42.7, RDW Coeff of Sandy 13.2, Plt Count 325, MPV 10.0, APTT 25.8, Sodium 139, Potassium 4.3, Chloride 104, Carbon Dioxide 23.1, Anion Gap 13, BUN 13, Creatinine 1.00, Estim Creat Clear Calc 142.99, Est GFR (MDRD) Non-Af 89, BUN/Creatinine Ratio 12.6, Glucose 101 H, Calcium 9.2, Triglycerides 345 H, Cholesterol 228 H, LDL Cholesterol, Calc 122, VLDL Cholesterol 69 H, HDL Cholesterol 37 L, Cholesterol/HDL Ratio 6.16 Medications at Discharge Home Medications aspirin 325 mg tablet 325 mg PO DAILY@0800 11/09/18 metoprolol tartrate 25 mg tablet 25 mg PO BID 10/27/20 multivitamin 1 tab PO DAILY 03/27/21 glucosamine HCl 1,500 mg tablet 1,000 mg PO DAILY 08/17/21 losartan 100 mg tablet 100 mg PO DAILY 11/17/21 amlodipine 10 mg tablet (Norvasc) 10 mg PO DAILY 09/12/23 duloxetine 30 mg capsule,delayed release (Cymbalta) 30 mg PO DAILY 09/12/23 sedha root extract 500 mg capsule 1,300 mg PO DAILY 09/16/23 Held on 03/06/25. Instructions: Talk to PCP magnesium 200 mg tablet 400 mg PO DAILY 09/16/23 coenzyme Q10 100 mg capsule (Co Q-10) 300 mg PO DAILY 03/04/25 aspirin 81 mg chewable tablet 81 mg PO BREAKFAST 90 days #90 tabs 03/06/25 chlorthalidone 12.5 mg tablet 12.5 mg PO DAILY 1 month #30 tabs 03/06/25 clopidogrel 75 mg tablet (Plavix) 75 mg PO DAILY 1 month #30 tabs 03/06/25 Physical Exam Narrative Seen and examined. Plan for cardiac catheter today. No acute chest pain or shortness of breath. History taken from the patient. History of NC in 2019 with LAD stent in [facility]. At this time he complained of left lower scapular pain with radiation to left shoulder without related to activity or exertion for last several days. No precordial chest pain. He felt similar characteristics of pain when he had NC in 2008. No significant associated with shortness of breath Physical exam General: Alert, Oriented x3, Cooperative. Morbid obesity BMI 46.3 kg/m? HEENT: Atraumatic, PERRLA, EOMI, Normocephalic. Oral: No Gingival or Mucosal Lesions/ Ulcerations Neck: Supple, No JVD, Negative Carotid Bruits Chest wall/Lungs: Air entry diminished in bilateral lung bases. No crepitation/rhonchi Cardiovascular: Regular rate and rhythm, Normal S1,S2, No M/G/R Abdomen: Bowel Sounds Present, Soft, Non Tender, Non-Distended : No dysuria. No renal angle tenderness. No suprapubic tenderness. Extremities: No edema, Capillary Refill Less than 3 Seconds Skin: Right hand [place]. No bleeding or hematoma Musculoskeletal: No Tenderness to Palpation of Joints or Extremities. ROM intact Neurological: Cranial nerves II-XII grossly intact, DTR 2+/4. No acute focal neurological deficit. Psych/Mental Status: Normal Affect, Appropriate. Weight / BMI Weight Weight: 380 lb 8.285 oz Body Mass Index (BMI) 46.3 ABG / Lab / Microbiology Data 03/05/25 05:45 03/06/25 04:40 Laboratory: Laboratory Results - last 24 hr 03/05/25 13:50: APTT 25.2 03/05/25 20:57: APTT 28.1 03/06/25 04:40: APTT 27.4, Sodium 139, Potassium 3.8, Chloride 102, Carbon Dioxide 21.0, Anion Gap 16 H, BUN 11, Creatinine 0.97, Estim Creat Clear Calc 147.41, Est GFR (MDRD) Non-Af 93, BUN/Creatinine Ratio 11.8, Glucose 90, Calcium 9.1, Total Bilirubin 0.35, AST 21, ALT 24, Alkaline Phosphatase 97, Troponin T High Sens 11 D, Total Protein 6.9, Albumin 3.8, Globulin 3.1, Albumin/Globulin Ratio 1.2 Radiography Diagnostic Testing: Radiology Impression Echocardiogram 03/04/25 17:27 Interpretation Summary The estimated ejection fraction is 55???60 %. Normal LV systolic function No significant change from previous echocardiogram Contrast echo/Definity used Ordering Physician: Hamilton Corral Referring Physician: Hamilton Corral Performed By: Wero Knutson RCS D/C Instructions DC O2, CPAP, BIPAP Needs Home O2 Discharge instructions: No Meaningful Use Info Meaningful Use Meaningful Use Diagnoses (Choose all that apply): AMI AMI/Post PCI/Angioplasty Aspirin given w/in 24hrs of arrival?: Yes ASA at discharge?: Yes Statins at discharge?: Yes Pawan/ARB at discharge?: Yes Beta Amador at discharge?: Yes Done w/ Acute NC measure.: Yes Ischemic Stroke Statin Dosing Therapy Reference: STATIN DOSE THERAPY REFERENCE: * Patients > 75 years receive moderate or high dose statin therapy. * Patients 75 years or YOUNGER should receive HIGH intensity statin dose unless contraindicated. You will be required to document reason for non-treatment if statin daily dose does not meet guidelines. HIGH DOSE STATIN THERAPY DAILY Atorvastatin > than or = to 40 mg Rosuvastatin > than or = to 20 mg Amlodipine + Atorvastatin > than or = to 2.5/40 mg Ezetimibe + Simvastatin 10/80 mg Simvastatin 80mg Discharge Plan Admission Admit Date/Time: 03/04/25 16:31 Attending Provider: Sam Cuellar Primary Care Provider: Eric Odom Consulting Providers: Haritha Hernandez; Hamilton Corral Instructions Additional Instructions / Restrictions: Contraindication with the statin. Advised follow-up PCP to request prior authorization for Vascepa Discharge Orders/Prescriptions Prescriptions: New aspirin 81 mg Tablet,Chewable 81 mg PO BREAKFAST 90 Days Qty: 90 1RF chlorthalidone 12.5 mg tablet 12.5 mg PO DAILY 30 Days Qty: 30 1RF clopidogrel [Plavix] 75 mg tablet 75 mg PO DAILY 30 Days Qty: 30 2RF Continued metoprolol tartrate 25 mg tablet 25 mg PO BID Patient Comments: TAKE 1 TABLET BY MOUTH TWICE A DAY glucosamine HCl 1,500 mg tablet 1,000 mg PO DAILY Rx Instructions: administer with a meal losartan 100 mg tablet 100 mg PO DAILY duloxetine [Cymbalta] 30 mg capsule,delayed release(DR/EC) 30 mg PO DAILY amlodipine [Norvasc] 10 mg tablet 10 mg PO DAILY aspirin 325 MG tablet 325 mg PO DAILY@0800 multivitamin Tablet 1 tab PO DAILY magnesium 200 mg tablet 400 mg PO DAILY coenzyme Q10 [Co Q-10] 100 mg capsule 300 mg PO DAILY Held ashwagandha root extract 500 mg capsule 1,300 mg PO DAILY Hold Instructions: Talk to PCP Discontinued magnesium 250 mg tablet 1,000 mg PO DAILY ibuprofen [Addaprin] 200 mg tablet 800 mg PO Q8H Referrals / Follow Up: Eric Odom MD [Primary Care Provider] - Within 2 Weeks (Contraindication with the statin. Advised follow-up PCP to request prior authorization for Vascepa) Angelica Whitman PA [Med Staff - Adv Practice Prof] - Within 2 Weeks Disposition Disposition (needs filled in before D/C Order can be placed): Home, Self Care Charges/Coding Visit Charges Inpatient E&M: 00265 Disch Hosp >30min
--- NOTE | 2025-03-06 13:09 | CASEMGMT ---
Patient has order for discharge. RN CM in to discuss needs at discharge. Patient denies needs or help at discharge. Patient had no further questions or concerns.
[2025-03-06 13:40] LABS: Partial Thromboplast Time 23.8 Seconds (24.1-36.2)
== END 2025-03-06 16:39 | disposition home or self-care (01) | DRG 281 ==
LOC: ED 16:39 → PCU 16:55
PROVIDERS: Internal Medicine Interventional Cardiology; Admitting Provider Hospitalist; Emergency Provider Emergency Medicine; PCP Family Medicine; Referring Provider Hospitalist; Visit Provider Internal Medicine
DX: I21.4 Non-ST elevation (NSTEMI) myocardial infarction (principal); Z68.42 Body mass index [BMI] 45.0-49.9, adult; E66.813 Obesity, class 3; I10 Essential (primary) hypertension; F12.90 Cannabis use, unspecified, uncomplicated; M54.16 Radiculopathy, lumbar region; E78.5 Hyperlipidemia, unspecified; I25.10 Atherosclerotic heart disease of native coronary artery without angina pectoris; I25.2 Old myocardial infarction; G89.29 Other chronic pain; Z82.49 Family history of ischemic heart disease and other diseases of the circulatory system; Z95.5 Presence of coronary angioplasty implant and graft; Z87.891 Personal history of nicotine dependence; Z79.899 Other long term (current) drug therapy; Z79.82 Long term (current) use of aspirin
CPT/HCPCS: 36415; 71046; 71275; 80048; 80053; 80061; 83036; 84443; 84484; 85025; 85027; 85379; 85610; 85730; 93005; 93306; 93454; 99152; 99153; 99285; Q9957; Q9967; A4216; C1769; C1894; C8929; J2405

== ENCOUNTER → 2025-03-12 | Outpatient (CLI) | payer OTHER, MEDICAID, SELFPAY ==
[2025-03-12 15:19] LABS: Hematocrit 45.7 % (40-54); Hemoglobin 15.9 g/dL (13.0-16.5); Immature Granulocytes Count 0.030 X10^3/uL (0.0-0.0); Mean Corp Hgb Conc 34.8 g/dL (32-36); Mean Corpuscular Volume 86.9 fL (80-94); Mean Platelet Vol. 10.1 fl (6.2-12.0); NRBC Flagged by Analyzer 0 % (0-5); Platelet Count 344 K/mm3 (150-450); RBC Distribution Width CV 13.2 % (11.6-14.6); RBC Distribution Width SD 41.1 fl (35.1-43.9); Red Blood Count 5.26 M/mm3 (4.6-6.2); White Blood Count 9.5 K/mm3 (4.4-11.0)
[2025-03-12 16:42] LABS: Cholesterol 218 mg/dL (<=200); Low Density Lipoprotein Calc. 144 mg/dL; Magnesium 1.8 mg/dL (1.5-2.2); Triglycerides 178 mg/dL; Very Low Density Lipoprotein 36 mg/dL (5-40); cholesterol:hdl ratio screen 5.74
[2025-03-12 16:44] LABS: AST(SGOT) 21 U/L (<=37); Alanine Aminotransfer ALT/SGPT 31 U/L (<=46); Albumin, Serum 4.1 g/dL (3.5-5.0); Alkaline Phosphatase 110 U/L (40-129); Anion Gap 15 (5-15); BUN 12 mg/dL (4-19); BUN/Creat Ratio 12.1 RATIO (10-20); Calcium,Total 9.3 mg/dL (7.6-11.0); Carbon Dioxide 20.0 mmol/L (21.0-32.0); Chloride 103 mmol/L (98-108); Globulin 3.3 g/dL (2.2-4.2); Glucose 107 mg/dL (70-99); Potassium 3.7 mmol/L (3.3-5.1)
[2025-03-12 17:03] LABS: Bilirubin, Direct 0.20 mg/dL (0.00-0.30)
== END | disposition home or self-care (01) ==
LOC: LAB 14:50
PROVIDERS: PCP Family Medicine; Referring Provider Nurse Practitioner Gerontology; Visit Provider Nurse Practitioner Gerontology
DX: E78.5 Hyperlipidemia, unspecified (principal); I95.1 Orthostatic hypotension
CPT/HCPCS: 36415; 80048; 80061; 80076; 83735; 85025

== ENCOUNTER → 2025-03-26 | Outpatient (CLI) | payer OTHER, MEDICAID, SELFPAY ==
--- NOTE | 2025-03-26 08:40 | RAD_ITS ---
PROCEDURE: CHEST PA AND LATERAL 03/26/2025 REASON FOR EXAM: ROGERS TECHNIQUE: CHEST PA AND LATERAL COMPARISON: 03/04/2025 FINDINGS: No focal consolidation. No pleural effusion or pneumothorax. Cardiac silhouette is within normal limits. No acute fractures. RAD/Chest PA and Lateral IMPRESSION: No focal consolidations. Reading Location: [id number]
[2025-03-26 09:21] LABS: Hematocrit 47.1 % (40-54); Hemoglobin 16.1 g/dL (13.0-16.5); Immature Granulocytes Count 0.040 X10^3/uL (0.0-0.0); Mean Corp Hgb Conc 34.2 g/dL (32-36); Mean Corpuscular Volume 87.7 fL (80-94); Mean Platelet Vol. 9.7 fl (6.2-12.0); NRBC Flagged by Analyzer 0 % (0-5); Platelet Count 364 K/mm3 (150-450); RBC Distribution Width CV 13.2 % (11.6-14.6); RBC Distribution Width SD 42.2 fl (35.1-43.9); Red Blood Count 5.37 M/mm3 (4.6-6.2); White Blood Count 8.8 K/mm3 (4.4-11.0)
[2025-03-26 10:06] LABS: Anion Gap 15 (5-15); BUN 11 mg/dL (4-19); BUN/Creat Ratio 9.9 RATIO (10-20); Calcium,Total 9.1 mg/dL (7.6-11.0); Carbon Dioxide 18.6 mmol/L (21.0-32.0); Chloride 107 mmol/L (98-108); Glucose 125 mg/dL (70-99); Magnesium 2.2 mg/dL (1.5-2.2); Potassium 4.1 mmol/L (3.3-5.1); Pro- Brain NATRIURETIC PEPTIDE 88 pg/mL (<=900)
== END | disposition home or self-care (01) ==
LOC: RAD 08:34
PROVIDERS: PCP Family Medicine; Referring Provider Nurse Practitioner Gerontology; Visit Provider Nurse Practitioner Gerontology
DX: R06.09 Other forms of dyspnea (principal)
CPT/HCPCS: 36415; 71046; 80048; 83735; 83880; 84443; 85025

== ENCOUNTER 2025-04-11 21:07 | Emergency (ER) | payer OTHER, MEDICAID, SELFPAY ==
[2025-04-11 21:07] VITALS: BP 137/103; PULSE 99; RESP 18; TEMP 36.8; O2SAT 99; BMI 45.3
--- NOTE | 2025-04-11 22:53 | ED.VIS.LOWEX ---
HPI History of Present Illness HPI Narrative: 55-year-old male history of [place] on Plavix and aspirin. Stepped on a piece of metal in his utility room in his house today around 1 PM causing a laceration on the bottom of his left third toe. He said initially was okay but he has had consistent bleeding tonight. Denies any other complaints says he does not think there is a foreign body. Believes he needs his tetanus updated. Chief Complaint: Laceration Informant: patient Occured/Mechanism Mechanism/Context: Yes injury Onset/Context/Timing Onset: Today and Hours Context: Sudden Onset Timing: Intermittent Current Severity: Mild Maximum Severity: Mild Associated Symptoms Associated Symptoms: Negative for Parasthesia, Weakness or Loss of Funtion Narrative Narrative: 35-year-old male on Plavix and aspirin lacerating the bottom of his left third toe at 1 PM today. 7 intermittent bleeding wanted to have it repaired. Tetanus Immunization: >10 years Prior similar symptoms: No Recent Illness/Hospitalization: No PFSH PFSH Medical History Non-ST elevation [place] (NSTEMI) Wears glasses Cancer Arthritis History of Holter monitoring Normal stress echocardiogram History of stress test Hypertension Cardiology follow-up encounter Anxiety Umbilical hernia Essential hypertension Wears contact lenses Depression History of steroid therapy Chronic pain Shortness of breath on exertion Former smoker Edema Myocardial infarct Hx of echocardiogram Back pain right elbow surgery History of lateral wall myocardial infarction (07/22/09) Atherosclerotic heart disease of [place] coronary artery without angina pectoris HTN (hypertension) Morbid obesity with BMI of 40.0-44.9, adult Tobacco use disorder HLD (hyperlipidemia) Family history of ischemic heart disease Home Medications ?Medication ?Instructions ?Recorded ?Last Taken ?Type metoprolol tartrate 25 mg tablet 25 mg PO BID 10/27/20 03/04/25 History multivitamin 1 tab PO DAILY 03/27/21 03/03/25 History glucosamine HCl 1,500 mg tablet 1,000 mg PO DAILY 08/17/21 03/04/25 History losartan 100 mg tablet 100 mg PO DAILY 11/17/21 03/04/25 History amlodipine 10 mg tablet (Norvasc) 10 mg PO DAILY 09/12/23 03/04/25 History duloxetine 30 mg capsule,delayed 30 mg PO DAILY 09/12/23 03/04/25 History release (Cymbalta) coenzyme Q10 100 mg capsule (Co 300 mg PO DAILY 03/04/25 03/03/25 History Q-10) aspirin 81 mg chewable tablet 81 mg PO BREAKFAST 90 days #90 tabs 03/06/25 Unknown Rx clopidogrel 75 mg tablet (Plavix) 75 mg PO DAILY 1 month #30 tabs 03/06/25 Unknown Rx ezetimibe 10 mg tablet (Zetia) 10 mg PO QDAY #30 tabs 03/12/25 Unknown Rx evolocumab 140 mg/mL subcutaneous 140 mg subcut Q2W #2 mL 03/26/25 Unknown Rx pen injector (Repatha SureClick) Allergy/AdvReac Type Severity Reaction Status Date / Time bee venom protein (honey bee) Allergy Swelling Verified 04/11/25 21:12 atorvastatin AdvReac Severe Myalgias Verified 04/11/25 21:12 cephalexin (From Keflex) AdvReac GIVES ME Verified 04/11/25 21:12 THE JITTERS shellfish derived AdvReac Nausea/Vom/ Verified 04/11/25 21:12 Diarrhea Family History Father , Age 57 of [place], had [place]/CAD at age 39 CAD (coronary artery disease) Myocardial infarction Mother Hypertension Sister Hypertension Surgical History History of coronary artery stent placement S/P umbilical hernia repair, follow-up exam Hx of surgical procedure History of surgery on arm History of dental surgery Stented coronary artery (07/22/09) Social History household members: other details: mother housing: house current occupational status: employed current occupation: [employer] 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: Former smoker pack-years: 20 alcohol intake: never do you feel safe at home: Yes ROS ROS ED ROS Narrative Denies recent illness. Constitutional Constitutional ED: Denies chills or fever(s) Eyes Eyes: Denies blurry vision ENT ENT ED: Denies ear pain Cardiovascular Cardiovascular: Denies chest pain Respiratory/Chest Respiratory/Chest: Denies cough or dyspnea Gastrointestinal Gastrointestinal: Denies abdominal pain Genitourinary Genitourinary ED: Denies dysuria or hematuria Musculoskeletal Musculoskeletal: Denies arthralgias Integumentary Denies abscess Neurologic Neurologic: Denies headache(s) Psychiatric Psychiatric: Denies anxiety or depression Endocrine Endocrinology: Denies polydipsia Hematologic/Lymphatic Hematologic/Lymphatic: Reports easy bleeding Allergic/Immunologic Allergic/Immunologic ED: Denies mouth swelling, tongue swelling or urticaria EXAM Physical Exam Narrative Exam Narrative: Well-appearing 55-year-old male. Vital signs stable afebrile. No acute distress. H EENT exam pupils round reactive light. Mytrex membranes. Lungs clear. Heart regular rhythm rate about 95 no murmur. Abdomen soft nontender. Moving all 4 extremities. The left foot has a bunch of dried blood. The undersurface of the left third toe has about a 2 inch laceration. No infection. No foreign body. He is able to wiggle his toes. Normal touch sensation. Distal knee repaired. Patient is awake and alert. No focal motor or sensory deficits. Const Vital Signs: 04/11/25 21:07 Temperature 98.2 F Temperature Source Oral Pulse Rate 99 Respiratory Rate 18 Blood Pressure 137/103 H Blood Pressure Mean 114 Pulse Ox 99 Oxygen Delivery Method Room Air Positive well nourished and well developed; Negative for cachectic, contractures or unkempt General Appearance ED: well developed and NAD; Negative for unkempt, cachectic or contractures Nutritional Appearance: Negative for cachectic HEENT Reports moist mucous membranes and other normocephalic, atraumatic and other; Negative for trauma or tenderness Eyes PERRL Neck full ROM and supple Chest Wall inspection of chest normal and palpation of chest normal Resp normal respiratory effort, no retractions and clear to auscultation bilaterally Cardio regular rate, regular rhythm, S1 normal heart sound, S2 normal heart sound and no murmurs Rate: Negative for bradycardia or tachycardic Rhythm: Negative for abnormal rhythm Bruits: Negative for other GI non-tender, non-distended and no masses Auscultation: normoactive bowel sounds Palpation: soft; Negative for tender or guarding Back/Spine no CVA tenderness General Back: Negative for CVA tenderness Cervical Spine: Negative for cervical spine tenderness Thoracic Spine / Upper Back: Negative for thoracic spinal tenderness Lumbar Spine / Lower Back: Negative for lumbar spinal tenderness Extremity normal to inspection and full ROM General Extremety ED: Negative for cyanosis or edema General Extremity: Negative for cyanosis or edema Neuro oriented x3 and CN's II-XII intact bilaterally Sensorium / Orientation: alert, oriented to person, oriented to place and oriented to time; Negative for orientation impaired, confused, lethargic or stuporous Motor Exam: strength 5/5 throughout Psych mental status grossly normal Appearance: Negative for unkempt Skin No no wounds Skin Narrative: Left third toe laceration bottom surface. 2 inches. Currently no active bleeding but dried blood on his foot. Trauma: laceration MDM MDM MDM Narrative Medical decision making narrative: 55-year-old male laceration left third toe. Will need repaired. Area to be cleaned. Locally anesthetized. Washed irrigated and cleaned. Explored. Closed using 4-0 Ethilon sutures. Tetanus will be updated. History & Record Review Discussion w/independent historian: Patient Additional record(s) reviewed:: Prior inpatient record, Prior outpatient record, Prior ED visit and Prior labs Procedures Lacerations Left third toe laceration repair:: Length: 2 in Depth: Sub Q Shape: Linear Prep: Shure-Clens Laceration repair: Irrigated, Lidocaine, Local, Skin sutures and Wound explored Number of Sutures/Ayala: 4 Suture Information: Ethilon, Simple and 4-0 Comment: Left third toe laceration bottom aspect. Approximately 2 inches. Area was locally anesthetized with lidocaine. Proper anesthetic was obtained. It was cleaned thoroughly with Shur-Clens then washed with saline and irrigated. No foreign body was noted. No involvement of the bone or joint. No involvement of the tendon. There is no foreign body seen. It was closed using 4 simple interrupted 4-0 Ethilon sutures. Proper hemostasis wound closure obtained. Patient tolerated procedure well. Discharge Plan Triage Chief Complaint: Laceration ED Provider: Chet Valdez Dx/Rx/DC Orders Clinical Impression: Laceration of toe, History of [place] (myocardial infarction) Instructions: ED Laceration Extremity Prescriptions: No Action metoprolol tartrate 25 mg tablet 25 mg PO BID Patient Comments: TAKE 1 TABLET BY MOUTH TWICE A DAY glucosamine HCl 1,500 mg tablet 1,000 mg PO DAILY Rx Instructions: administer with a meal losartan 100 mg tablet 100 mg PO DAILY duloxetine [Cymbalta] 30 mg capsule,delayed release(DR/EC) 30 mg PO DAILY amlodipine [Norvasc] 10 mg tablet 10 mg PO DAILY ezetimibe [Zetia] 10 mg tablet 10 mg PO QDAY Qty: 30 11RF Repatha SureClick 140 mg/mL pen injector 140 mg subcut Q2W Qty: 2 6RF multivitamin Tablet 1 tab PO DAILY coenzyme Q10 [Co Q-10] 100 mg capsule 300 mg PO DAILY aspirin 81 mg Tablet,Chewable 81 mg PO BREAKFAST 90 Days Qty: 90 1RF clopidogrel [Plavix] 75 mg tablet 75 mg PO DAILY 30 Days Qty: 30 2RF Primary Care Provider: Eric Odom Referrals: Eric Odom MD [Primary Care Provider] - 10 Day for suture removal Activity Restrictions/Additional Instructions: Keep the foot clean and dry. It can get wet do not let it soak in any bathtub water. When you shower when you are done carefully and gently dry it thoroughly. Tylenol for pain. Watch for any signs of infection such as swelling, redness, pus or streaks of seen return. Clean thoroughly and gently daily. Apply antibiotic ointment daily. Clean with either soap water or peroxide and water. Clean white socks. Stitches out in 10 days. We can do at your primary care physician's office can do it. Print Language: Salvadorean Disposition Disposition: Home, Self Care
--- OUTSIDE RECORDS SUMMARY | 2025-04-11 22:58 | XMS RPT_ITS | CCD ---
Author Organization [facility] Care Team Providers Care Studio Set Up Worker Name Role Phone Dr. Eric Odom Primary Care Provider Dr. Eric Odom Referring Provider Tristin CRANDALL, BECKY Green Attending Provider Dr. Eric Odom Primary Care Provider Dr. Eric Odom Referring Provider Smiley MONTGOMERY, PA Baltazar Montes Attending Provider Dr. Christopher Montero Attending Provider [phone] Dr. Christiano Hatfield Attending Provider Dr. Christopher Montero Referring Provider Dr. Christopher Montero Other Provider Dr. Eric Odom MD Primary Care Provider [phone] Dr. Wero Santiago DO Emergency Provider Dr. Wero Santiago DO Attending Provider Dr. Anselmo Rios DO Emergency Provider Dr. Hamilton Corral DO Admit Provider Dr. Hamilton Corral DO Attending Provider Dr. Hamilton Corral DO Referring Provider Dr. Hamilton Corral DO Other Provider [phone] Mary WOODALL, Dr. Mg Other Provider Polo WOODALL, Dr. Vargas Attending Provider Polo WOODALL, Dr. Vargas Other Provider Mary WOODALL, Dr. Mg Attending Provider Lei WOODALL, Dr. Reyes Referring Provider Tristin SUPERVISOR ACCOUNTING CLERKS-C, Norma Attending Provider [phone] Tristin SUPERVISOR ACCOUNTING CLERKS-C, Norma Referring Provider [phone] Tristin SUPERVISOR ACCOUNTING CLERKS, Norma Attending Unavailable Tristin SUPERVISOR ACCOUNTING CLERKS, Norma Referring Unavailable Odom, Eric Primary Care Unavailable Crow SUPERVISOR ACCOUNTING CLERKS, Norma Referring Unavailable Tristin SUPERVISOR ACCOUNTING CLERKS, Norma Attending Unavailable Odom, Eric Primary Care Unavailable Odom, Eric Primary Care Unavailable Wero Santiago Attending Unavailabl e Tristin SUPERVISOR ACCOUNTING CLERKS, Norma Attending Unavailable Tristin SUPERVISOR ACCOUNTING CLERKS, oNrma Referring Unavailable Odom, Eric Primary Care Unavailable Belsreekanth, Haritha Consulting Unavailable Ellis, Hamilton Admitting Unavailable Ellis, Hamilton Referring Unavailable Odom, Eric Primary Care Unavailable Sam Cuellar Attending Unavailable Ellis, Hamilton Consulting Unavailable Tristin SUPERVISOR ACCOUNTING CLERKS, Norma Attending Unavailable Tristin SUPERVISOR ACCOUNTING CLERKS, Norma Referring Unavailable Odom, Eric Primary Care Unavailable Haritha Hernandez Attending Unavailable Belsreekanth, Farouk Consulting Unavailable Mosteller, Hamilton Admitting Unavailable Mosteller, Hamilton Referring Unavailable Odom, Eric Primary Care Unavailable Mosteller, Hamilton Consulting Unavailable Sam Cuellar Consulting Unavailable Sam Cuellar Attending Unavailable Ellis, Hamilton Attending Unavailable Tristin SUPERVISOR ACCOUNTING CLERKS, Norma Attending Unavailable Odom, Eric Primary Care Unavailable Odom, Eric Referring Unavailable Tristin SUPERVISOR ACCOUNTING CLERKS, Norma Attending Unavailable Odom, Eric Primary Care Unavailable Odom, Eric Referring Unavailable Allergies Allergy Classification Reported Allergen(s) Allergy Type Date of Onset Reaction(s) Facility (12 sources) atorvastatin Drug Allergy 2 Myalgias [facility] (12 sources) Cephalexin Drug Allergy 2 GIVES ME THE JITTERS [facility] (13 sources) Shellfish; Translations: [shellfish derived] Propensity to adverse reactions 2 Nausea/Vom/Diar sari [facility] (12 sources) bee venom protein (honey bee) Allergy to substance 2 Swelling [facility] (1 source) atorvastatin Drug Allergy 5 [facility] (1 source) Cephalexin Drug Allergy 5 [facility] (1 source) bee venom protein (honey bee) Drug allergy (disorder) 5 [facility]ository Medications Current Medications Medication Drug Class(es) Dates Sig (Normalized) Sig (Original) amLODIPine 10 mg oral tablet (20 sources) Dihydropyridine Calcium Channel Hernandez Start: 10-27-2020 End: 09-12-2023 take 1 tablet [...] MG PO DAILY September 16, 2023 12:00am aspirin 81 mg chewable tablet (17 sources) Platelet Aggregation Inhibitor, Nonsteroidal Anti-inflammatory Drug Start: 03-06-2025 take 1 tablet by mouth at breakfast Aspirin 81 mg Tablet,Chewable Active 81 mg PO WITH BREAKFAST 90 90 March 06, 2025 12:00am Start: 11-09-2018 End: 03-12-2025 take 1 tablet by mouth once daily Aspirin 325 MG tablet Discontinued 325 mg PO DAILY@0800 November 09, 2018 1:00am March 12, 2025 2:24pm clopidogrel 75 mg oral tablet (5 sources) [id number] Platelet Inhibitor Start: 03-06-2025 take 1 tablet by mouth once daily Clopidogrel (Plavix) 75 mg tablet Active 75 mg PO DAILY 30 30 March 06, 2025 12:00am DULoxetine 30 mg delayed release oral capsule (8 sources) Serotonin and Norepinephrine Reuptake Inhibitor Start: 09-12-2023 take 1 capsule by mouth once daily Duloxetine (Cymbalta) 30 mg capsule,delayed release(DR/EC) Active 30 mg PO DAILY September 12, 2023 1:00am Evolocumab (Repatha Sureclick) 140 mg/mL pen injector (2 sources) Start: 03-26-2025 Evolocumab (Repatha Sureclick) 140 mg/mL pen injector Active 140 mg SC every 2 weeks 2 March 26, 2025 12:00am ezetimibe 10 mg oral tablet (4 sources) Dietary Cholesterol Absorption Inhibitor Start: 03-12-2025 take 1 tablet by mouth once daily Ezetimibe (Zetia) 10 mg tablet Active 10 mg PO daily 30 March 12, 2025 12:00am glucosamine hydrochloride 1500 mg oral tablet (12 sources) Start: 08-17-2021 Glucosamine Hcl 1,500 mg [...] 17, 2021 12:00am administer with a meal losartan potassium 100 mg oral tablet (20 sources) Angiotensin 2 Receptor Hernandez Start: 11-17-2021 take 1 tablet by mouth [...] 09, 2018 12:00am November 14, 2018 10:00am metoprolol tartrate 25 mg oral tablet (12 sources) beta-Adrenergic Hernandez Start: 10-27-2020 take 1 tablet by mouth [...] 12:00am October 27, 2020 4:15pm Multivitamin Tablet (7 sources) Start: 03-27-2021 Multivitamin T ablet Active 1 {tbl} PO DAILY March 27, 2021 12:00am ubidecarenone 100 mg oral capsule (6 sources) Start: 03-04-2025 Coenzyme Q10 ( Co Q-10) 100 mg capsule Active 300 mg PO DAILY March 04, 2025 12:00am Completed/Discontinued Medications Medication Drug Class(es) Dates Sig (Normalized) Sig (Original) amoxicillin 875 mg / clavulanate 125 mg oral tablet (12 sources) Penicillin-class Antibacterial Start: 03-27-2021 End: 08-17-2021 take 1 tablet by mouth every twelve hours Amoxicillin-Pot Clavulanate 875 MG tablet Discontinued 875 mg PO Q12H 20 0 March 27, 2021 12:00am August 17, 2021 4:34pm Ashwagandha Root Extract 500 mg capsule (7 sources) Start: 09-16-2023 End: 03-12-2025 take 1 capsule by mouth once daily Ashwagandha Root Extract 500 mg capsule Discontinued 1300 mg PO DAILY September 16, 2023 1:00am March 12, 2025 2:26pm On Hold: Talk to PCP Start: 09-16-2023 take 1 capsule by mo uth once daily Ashwagandha Root Extract 500 mg capsule Active 1300 mg PO DAILY September 16, 2023 1:00am On Hold: Talk to PCP Start: 09-16-2023 take 1 capsule by mo uth once daily Ashwagandha Root Extract 500 mg capsule Active 1300 mg PO DAILY September 16, 2023 1:00am benzonatate 200 mg oral capsule (8 sources) Non-narcotic Antitussive Start: 08-08-2023 End: 09-12-2023 [...] Start: 03-27-2021 take 1 tablet by andrew once daily Ca Carb-Ca Gluc-Mg Ox-Mg Gluco [...] Magnesium) 500 mg calcium -250 mg Tablet (7 sources) Start: 03-27-2021 End: 09-12-2023 Calcium Carb,Gluc-Mag [...] 27, 2021 8:50am Calcium-Magnesium 300-300 mg tablet (7 sources) Start: 11-29-2018 End: 03-27-2021 Calcium-Magnesium 300-300 mg tablet Discontinued 1 {tbl} PO DAILY November 29, 2018 12:00am March 27, 2021 8:50am chlorthalidone 12.5 mg oral tablet (17 sources) Thiazide-like Diuretic Start: 03-06-2025 End: 03-12-2025 take 1 tablet by mouth once daily Chlorthalidone 12.5 mg tablet Discontinued 12.5 mg PO DAILY March 06, 2025 12:00am March 12, 2025 2:34pm Start: 10-27-2020 End: 03-04-2025 take 1 tablet by mouth once daily Chlorthalidone 25 mg tablet Discontinued 25 mg PO DAILY October 27, 2020 1:00am March 04, 2025 2:46pm clindamycin 300 mg oral capsule (7 sources) Lincosamide Antibacterial Start: 12-13-2024 End: 03-04-2025 take 1 capsule by mouth every six hours Clindamycin Hcl (Cleocin Hcl) 300 mg capsule Discontinued 300 mg PO EVERY 6 HOURS 28 7 0 December 13, 2024 12:00am March 04, 2025 2:46pm cyclobenzaprine hydrochloride 10 mg oral tablet (12 sources) Muscle Relaxant Start: 11-09-2018 End: 10-27-2020 take 1 tablet by mouth three times daily as needed for pain Cyclobenzaprine 10 MG tablet Discontinued 10 mg PO 3 TIMES DAILY NEEDED as needed for Pain November 09, 2018 1:00am October 27, 2020 4:15pm dexamethasone 6 mg oral tablet (8 sources) Corticosteroid Start: 08-08-2023 End: 09-12-2023 take 1 tablet by mouth once daily Dexamethasone 6 mg tablet Discontinued 6 mg PO DAILY 5 August 08, 2023 1:00am September 12, 2023 3:12pm etodolac 400 mg oral tablet (11 sources) Nonsteroidal Anti-inflammatory Drug Start: 03-24-2022 End: 09-12-2023 take 1 tablet by mouth twice daily Etodolac 400 mg tablet Discontinued 400 mg PO TWICE A DAY March 24, 2022 12:00am September 12, 2023 3:12pm gabapentin 300 mg oral capsule (12 sources) Anti-epileptic Agent Start: 11-09-2018 End: 08-17-2021 take 1 capsule by mouth at bedtime Gabapentin 300 MG capsule Discontinued 300 mg PO AT BEDTIME November 09, 2018 1:00am August 17, 2021 4:34pm gemfibrozil 600 mg oral tablet (12 sources) Peroxisome Proliferator Receptor alpha Agonist Start: 07-05-2019 End: 10-27-2020 take 1 tablet by mouth twice daily Gemfibrozil 600 mg tablet Discontinued 600 mg PO TWICE A DAY 60 July 05, 2019 12:00am October 27, 2020 [...] mg tablet Discontinued 12.5 mg PO DAILY 04 08November 14, 2018 12:00am November 29, 2018 10:52am hydroCHLOROthiazide 12.5 mg / losartan potassium 50 mg oral tablet (12 sources) Thiazide Diuretic, Angiotensin 2 Receptor Hernandez Start: 11-14-2018 End: 11-14-2018 Losartan-Hydrochlorothiazide 50-12.5 mg tablet Discontinued 1 {tbl} PO DAILY 04 08November 14, 2018 12:00am November 14, 2018 11:09am Start: 11-14-2018 End: 11-14-2018 take 1 tablet by mouth once daily Losartan-Hydrochlorothiazide Discontinue d 1 TABLET PO DAILY November 13, 2018 11:00pm November 14, 2018 10:09am hydrOXYzine hydrochloride 50 mg oral tablet (20 sources) Antihistamine Start: 08-17-2021 End: 03-04-2025 take [...] 27, 2020 1:00am August 17, 2021 4:36pm ibuprofen 200 mg oral tablet (6 sources) Nonsteroidal Anti-inflammatory Drug Start: 03-04-2025 End: 03-06-2025 Ibuprofen (Addaprin) 200 mg tablet Discontinued 800 mg PO Q8H March 04, 2025 12:00am March 06, 2025 12:30pm knee pain Lidocaine (12 sources) Antiarrhythmic, Amide Local Anesthetic Start: 10-10-2021 [...] MUCOUS MEM Q4H 100 October 10, 2021 7:24pm November 17, 2021 2:09pm Start: 10-10-2021 End: 11-17-2021 Lidocaine Hcl (Lidocaine Vis cous) 2 % solution Discontinued 5 ML MUCOUS MEM Q4H 100 October 10, 2021 8:24pm November 17, 2021 3:09pm Magnesium (14 sources) Start: 03-04-2025 End: 03-06-2025 take 4 tablets by mouth once daily Magnesium 250 mg tablet Discontinued 1000 mg PO DAILY March 04, 2025 12:00am March 06, 2025 12:30pm Start: 03-04-2025 take 4 tablets by mo uth once daily Magnesium 250 mg tablet Active 1000 mg PO DAILY March 04, 2025 12:00am Start: 09-16-2023 End: 03-12-2025 take 2 tablets by mouth once daily Magnesium 200 mg tablet Discontinued 400 mg PO DAILY September 16, 2023 1:00am March 12, 2025 2:25pm Start: 09-16-2023 take 2 tablets by mo uth once daily Magnesium 200 mg tablet Active 400 mg PO DAILY September 16, 2023 1:00am Start: 09-16-2023 take 400 mg by mouth once thomas y Magnesium Active 400 MG PO DAILY September 16, 2023 12:00am meclizine hydrochloride 25 mg oral tablet (12 sources) Antiemetic Start: 08-12-2021 End: 11-17-2021 take 1 tablet by mouth three times daily as needed for dizziness Meclizine 25 mg tablet Discontinued 25 mg PO THREE TIMES A DAY as needed for dizziness 14 0 August 12, 2021 3:40pm November 17, 2021 3:10pm Multivitamin tablet (7 sources) Start: 11-29-2018 End: 10-27-2020 Multivitamin tablet Discontinued 1 {tbl} PO DAILY November 29, 2018 12:00am October 27, 2020 4:15pm naproxen 500 mg oral tablet (20 sources) Nonsteroidal Anti-inflammatory Drug Start: 08-17-2021 End: 09-12-2023 take 1 tablet by mouth twice daily as needed Naproxen 500 mg tablet Discontinued 500 mg PO TWICE A DAY as needed August 17, 2021 4:51pm September 12, 2023 3:11pm nortriptyline 50 mg oral capsule (20 sources) Tricyclic Antidepressant Start: 08-17-2021 take 100 mg by mouth at bedtime Nortriptyline Active 100 MG PO AT BEDTIME August 17, 2021 3:35pm Start: 10-27-2020 End: 03-04-2025 take 1 capsule by mouth at bedtime Nortriptyline 50 mg capsule Discontinued 100 mg PO AT BEDTIME August 17, 2021 4:35pm March 04, 2025 2:46pm nystatin [id number] unt/ml oral suspension (12 sources) Polyene Antifungal Start: 10-10-2021 End: 11-17-2021 Nystatin 100,000 unit/mL suspension Discontinued [id number] U PO EVERY 6 HOURS 20 5 0 October 10, 2021 1:00am November 17, 2021 3:11pm administer 1/2 of dose in each side of the mouth [place]-3 Fatty Acids-Fish Oil (Fish Oil) 300-1,000 mg capsule (12 sources) Start: 11-29-2018 End: 08-17-2021 take 2 capsules by mouth once daily [facility]-3 Fatty Acids-Fish Oil (Fish Oil) 300-1,000 mg capsule Discontinued 2 CAP PO DAILY November 29, 2018 10:29am August 17, 2021 4:33pm Start: 11-29-2018 End: 08-17-2021 [place]-3 Fatty Acids-Fish Oil (Fish Oil) 300-1,000 mg capsule Discontinued 2 NMA PO DAILY November 29, 2018 12:00am August 17, 2021 4:33pm Start: 11-29-2018 End: 08-17-2021 take 2 capsules by mouth once daily [place]-3 Fatty Acids-Fish Oil (Fish Oil) 300-1,000 mg capsule Discontinued 2 CAP PO DAILY November 28, 2018 11:00pm August 17, 2021 3:33pm Start: 11-29-2018 End: 08-17-2021 take 2 capsules by mouth once daily [place]-3 Fatty Acids-Fish Oil (Fish Oil) 300-1,000 mg capsule Discontinued 2 CAP PO DAILY November 29, 2018 12:00am August 17, 2021 4:33pm oxyCODONE hydrochloride 5 mg oral tablet (8 sources) Opioid Agonist Start: 09-22-2023 End: 03-04-2025 take 5-10 mg by mouth every six hours as needed for pain Oxycodone 5 mg tablet Discontinued 5 - 10 mg PO EVERY 6 HOURS as needed for pain 15 5 0 September 22, 2023 March 04, 2025 2:47pm Umbilical hernia Umbilical hernia without obstruction or gangrene potassium chloride 20 meq extended release oral tablet (12 sources) Start: 10-27-2020 End: 09-12-2023 take 2 tablets by mouth once daily Potassium Chloride 20 mEq tablet extended release Discontinued 40 meq PO DAILY October 27, 2020 1:00am September 12, 2023 3:13pm Start: 10-27-2020 End: 09-12-2023 take 40 mEq by mouth once daily Potassium Chloride Discontinued 40 MEQ PO DAILY October 27, 2020 12:00am September 12, 2023 2:13pm sucralfate 100 mg/ml oral suspension (12 sources) Aluminum Complex Start: 10-10-2021 End: 11-17-2021 take 1 mL by mouth every four hours as needed for pain Sucralfate (Carafate) 100 mg/mL suspension Discontinued 5 mL PO Q4H as needed for pain 100 0 October 10, 2021 8:28pm November 17, 2021 3:11pm traMADol hydrochloride 50 mg oral tablet (12 sources) Opioid Agonist Start: 09-18-2016 End: 05-18-2018 take 1 tablet by mouth every six hours as needed for pain Tramadol 50 MG tablet Discontinued 50 mg PO EVERY 6 HOURS NEEDED as needed for Pain September 18, 2016 1:00am May 18, 2018 5:35pm Problems Active Problems Problem Classification Problem Date Documented Date Episodic/Chronic Abdominal hernia (20 sources) Ischiatic hernia; Translations: [Other specified abdominal hernia without obstruction or gangrene] 09-19-2016 Episodic Acute myocardial infarction (13 sources) Myocardial infarction; Translations: [Non-ST elevation (NSTEMI) myocardial infarction] Onset: 03-28-2025 03-04-2025 Chronic Cardiac dysrhythmias (12 sources) Ventricular premature beats; Translations: [Ventricular premature depolarization] 08-20-2021 Chronic Cardiac dysrhythmias (5 sources) Palpitations; Translations: [Palpitations] Onset: 03-26-2025 03-26-2025 Episodic Conditions associated with dizziness or vertigo (12 sources) Dizziness; Translations: [Dizziness and giddiness] 08-20-2021 Episodic Coronary atherosclerosis and other heart disease (20 sources) History of myocardial infarction; Translations: [Old myocardial infarction] Onset: 07-22-2009 Chronic Coronary atherosclerosis and other heart disease (20 sources) Stented coronary artery; Translations: [Presence of coronary angioplasty implant and graft] Onset: 07-22-2009 Episodic Comment on above: [facility] post [place], proxim al ramus Disorders of lipid metabolism (20 sources) Hyperlipidemia; Translations: [Hyperlipidemia, unspecified] Onset: 03-18-2025 Chronic Essential hypertension (20 sources) Hypertensive disorder; Translations: [Essential (primary) hypertension] Chronic Headache; including migraine (12 sources) Headache; Translations: [Headache] 08-20-2021 Episodic Heart valve disorders (12 sources) Ventricular bigeminy; Translations: [Other abnormalities of heart beat] 08-20-2021 Episodic Nonspecific chest pain (6 sources) Chest pain; Translations: [Chest pain, unspecified] 03-04-2025 Episodic Open wounds of extremities (12 sources) Laceration of foot; Translations: [Laceration without foreign body, right foot, initial encounter] 12-28-2021 Episodic Other aftercare (8 sources) History of repair of umbilical hernia; Translations: [Encounter for follow-up examination after completed treatment for conditions other than malignant neoplasm] 10-06-2023 Episodic Other aftercare (1 source) Encounter for follow-up examination after completed treatment for conditions other than malignant neoplasm; Translations: [Follow-up examination, following other surgery] 10-06-2023 Episodic Other circulatory disease (9 sources) Orthostatic hypotension; Translations: [Orthostatic hypotension] 03-12-2025 Episodic Other circulatory disease (1 source) Orthostatic hypotension; Translations: [Orthostatic hypotension] Onset: 03-12-2025 Episodic Other lower respiratory disease (4 sources) Dyspnea on exertion; Translations: [Other forms of dyspnea] 03-26-2025 Episodic Other lower respiratory disease (2 sources) Other forms of dyspnea; Translations: [Other forms of dyspnea] Onset: 04-01-2025 Episodic Other nutritional; endocrine; and metabolic disorders (12 sources) Body mass index 40+ - severely obese; Translations: [Morbid (severe) obesity due to excess calories] 12-20-2021 Chronic Other nutritional; endocrine; and metabolic disorders (1 source) Morbid (severe) obesity due to excess calories; Translations: [Morbid obesity] 09-12-2023 Chronic Other upper respiratory infections (12 sources) Pharyngitis; Translations: [Acute pharyngitis, unspecified] 03-27-2021 Episodic Residual codes; unclassified (12 sources) History of chest pain; Translations: [Personal history of other specified conditions] 09-29-2015 Episodic Residual codes; unclassified (17 sources) Family history of ischemic heart disease; Translations: [Family history of ischemic heart disease and other diseases of the circulatory system] 11-12-2018 Episodic Residual codes; unclassified (1 source) Family history of ischemic heart disease and other diseases of the circulatory system; Translations: [Family history of ischemic heart disease and other diseases of the circulatory system] Onset: 03-28-2025 Episodic Spondylosis; intervertebral disc disorders; other back problems (12 sources) Lumbar facet joint pain; Translations: [Spondylosis without myelopathy or radiculopathy, lumbar region] 01-14-2021 Chronic Spondylosis; intervertebral disc disorders; other back problems (12 sources) Lumbar radiculopathy; Translations: [Radiculopathy, lumbar region] 05-18-2018 Episodic Sprains and strains (12 sources) Low back strain; Translations: [Strain of muscle, fascia and tendon of lower back, initial encounter] 05-19-2018 Episodic Substance-related disorders (18 sources) Tobacco user; Translations: [Nicotine dependence, unspecified, uncomplicated] Onset: 03-28-2025 11-12-2018 Chronic Unclassified (5 sources) Contraindication with the statin. Advised follow-up PCP to request prior authorization for Vascepa Past or Other Problems Problem Classification Problem Date Documented Da te Episodic/Chronic Superficial injury; contusion (8 sources) Blister of foot; Translations: [Blister (nonthermal), unspecified lesser toe(s), initial encounter] Onset: 12-19-2024 12-13-2024 Episodic Unclassified (11 sources) right elbow surgery 03-25-2022 Comment on above: 02/20/2019 Results Test Name Value Interpretation Reference Range Facility Absolute lymphocyte countOrd ered By: Norma Crow on 03-26-2025 Lymphocytes Auto (Unsp spec) [#/Vol] 2.31 10*3/uL 0.83-4.51 [facility] Absolute neutrophil countOrd ered By: Norma Crow on 03-26-2025 Neutrophils (Bld) [#/Vol] 5.5 10*3/uL 2.0-7.7 [facility] Anion gap in Serum or Plasma Ordered By: Norma Crow on 03-26-2025 Anion gap [Moles/Vol] 15 mmol/L 5-15 [facility] Automated lymphocyte count a s percentage of total leukocytesOrdered By: Norma Crow on 03-26-2025 Lymphocytes/100 WBC Auto (Unsp spec) 26.2 % 19-41 [facility] BUN/creatinine ratioOrdered By: Norma Crow on 03-26-2025 Urea nitrogen/Creatinine [Mass ratio] 9.9 mg/mg Low 10-20 [facility] Basic Metabolic Profile (BMP )on 03-26-2025 BUN/CRE 9.9 RATIO Low 10- [facility] Comment on above: Performed By: #### L 300.4310 #### [facility] [address] [place], [address] Calcium [Mass/Vol] 9.1 mg/dL Normal 7.6-11.0 [facility] Comment on above: Performed By: #### L 300.4310 #### [facility] [address] [place], [address] Chloride [Moles/Vol] 107 mmol/L Normal 98-108 [facility] Comment on above: Performed By: #### L [id number] #### [facility] [address] [place], [address] CO2 [Moles/Vol] 18.6 mmol/L Low 21.0-32.0 [facility] Comment on above: Performed By: #### L [id number] #### [facility] [address] [place], [address] Creatinine [Mass/Vol] 1.08 mg/dL Normal 0.70-1.20 [facility] Comment on above: Performed By: #### L [id number] #### [facility] [address] [place], [address] GAP 15 Normal 5-15 [facility] Comment on above: Performed By: #### L [id number] #### [facility] [address] [place], [address] GFR/1.73 sq M.predicted among non-blacks MDRD (S/P/Bld) [Vol rate/Area] 81 mL/min/{1.73_m2} Normal >60 [facility] Comment on above: Result Comment: mL/m in/1.73m2 CKD-EPI Creatinine Equation (2020) Performed By: #### L 300.4310 #### [facility] [address] [place], [address] Glucose [Mass/Vol] 125 mg/dL High 70-99 [facility] Comment on above: Performed By: #### L [id number] #### [facility] [address] [place], [address] Potassium [Moles/Vol] 4.1 mmol/L Normal 3.3-5.1 [facility] Comment on above: Performed By: #### L [id number] #### [facility] [address] [place], [address] Sodium [Moles/Vol] 140 mmol/L Normal 133-145 [facility] Comment on above: Performed By: #### L [id number] #### [facility] [address] [place], [address] Urea nitrogen [Mass/Vol] 11 mg/dL Normal 4-19 [facility] Comment on above: Performed By: #### L [id number] #### [facility] [address] [place], [address] Basophil percentageOrdered B y: Norma Crow on 03-26-2025 Basophils/100 WBC (Bld) 1.4 % High 0-1 [facility] CBC W/Diff, Automatedon 03-06 Absolute Lymph 2.31 X10 3/uL Normal 0.83-4.51 [facility] Comment on above: Performed By: #### L [id number] #### [facility] [address] [place], [address] Absolute Neut 5.5 X10 3/uL Normal 2.0-7.7 [facility] Comment on above: Performed By: #### L 300.4310 #### [facility] [address] [place], [address] Basophils/100 WBC (Bld) 1.4 % High 0-1 [facility] Comment on above: Performed By: #### L 300.4310 #### [facility] [address] [place], [address] Eosinophils/100 WBC (Bld) 2.5 % Normal 0-5 [facility] Comment on above: Performed By: #### L 300.4310 #### [facility] [address] [place], [address] Erythrocyte distribution width (RBC) [Ratio] 13.2 % Normal 11.6-14.6 [facility] Comment on above: Performed By: #### L 300.4310 #### [facility] [address] [place], [address] Hematocrit (Bld) [Volume fraction] 47.1 % Normal 40-54 [facility] Comment on above: Performed By: #### L 300.4310 #### [facility] [address] [place], [address] Hemoglobin (Bld) [Mass/Vol] 16.1 g/dL Normal 13.0-16.5 [facility] Comment on above: Performed By: #### L 300.4310 #### [facility] [address] [place], [address] IG% 0.500 Normal 0.0-0.9 [facility] Comment on above: Result Comment: IG% - Immature Granulocytes (promyelocytes, myelocytes and metamyelocytes) > 1% indicates that a LEFT SHIFT is Present. Performed By: #### L 300.4310 #### [facility] [address] [place], [address] Lymphocytes/100 WBC (Bld) 26.2 % Normal 19-41 [facility] Comment on above: Performed By: #### L 300.4310 #### [facility] [address] [place], [address] MCH (RBC) [Entitic mass] 30.0 pg Normal 27.0-32.0 [facility] Comment on above: Performed By: #### L 300.4310 #### [facility] [address] [place], [address] MCHC (RBC) [Mass/Vol] 34.2 g/dL Normal 32-36 [facility] Comment on above: Performed By: #### L 300.4310 #### [facility] [address] [place], [address] MCV (RBC) [Entitic vol] 87.7 fL Normal 80-94 [facility] Comment on above: Performed By: #### L 300.4310 #### [facility] [address] [place], [address] Monocytes/100 WBC (Bld) 6.8 % Normal 0-10 [facility] Comment on above: Performed By: #### L 300.4310 #### [facility] [address] [place], [address] Neutrophils/100 WBC (Bld) 62.6 % Normal 47-70 [facility] Comment on above: Performed By: #### L 300.4310 #### [facility] [address] [place], [address] Nucleated RBC (Bld) [#/Vol] 0 10*3/uL Normal 0-5 [facility] Comment on above: Performed By: #### L 300.4310 #### [facility] [address] [place], [address] Platelet mean volume (Bld) [Entitic vol] 9.7 fL Normal 6.2-12.0 [facility] Comment on above: Performed By: #### L 300.4310 #### [facility] [address] [place], [address] Platelets (Bld) [#/Vol] 364 10*3/uL Normal 150-450 [facility] Comment on above: Performed By: #### L 300.4310 #### [facility] [address] [place], [address] RBC (Bld) [#/Vol] 5.37 10*6/uL Normal 4.6-6.2 [facility] Comment on above: Performed By: #### L 300.4310 #### [facility] [address] [place], [address] RDW SD 42.2 fl Normal 35.1-43.9 [facility] Comment on above: Performed By: #### L 300.4310 #### [facility] [address] [place], [place], [address] WBC (Bld) [#/Vol] 8.8 10*3/uL Normal 4.4-11.0 [facility] Comment on above: Performed By: #### L 300.4310 #### [facility] [address] [place], [place], [address] Carbon dioxide, total [Moles /volume] in Central venous bloodOrdered By: Norma Crow on 03-26-2025 CO2 [Moles/Vol] 18.6 mmol/L Low 21.0-32.0 [facility] Cardiology Visit Reporton Cardiology Visit Report [facility] [address] [place], [place] [address] OFFICE VISIT Date of Service: 03/26/25 MR#: [id number] Acct: [id number] Name: ARGELIA COPELAND Rep #: [id number] : 1970 Provider: BECKY arana Age/Sex: 55/M [place] [facility] [place] Status: Signed HPI HPI History of Present Illness Details: ARGELIA COPELAND, is a 55 year old male that presents to the office today for a cardiovascular follow up visit. Patient was last seen in our office in 2021. He has a history of hypertension, hypercholesterolemia , coronary artery disease status post lateral wall myocardial infarction on 07/22/2009 and is status post percutaneous intervention of an unknown artery at [facility] with Dr Nguyen. Patient presented to the emergency room on 03/04/2025 with complaints of chest pain. He states this feels very similar to his previous heart attack. Patient was admitted for heart catheterization, which demonstrated ruptured plaque in the distal part of his left main, he does have nonobstructive coronary artery disease noted in multiple arteries. Medical therapy was recommended. From a cardiac standpoint, the patient is doing well. He does acknowledge palpitations. He denies chest pain, pressure or heaviness. He does have SOB with minimal exertion. He does have occasional orthopnea. He denies PND. He does not have bleeding issues; no blood in urine, stool, or nosebleeds. He does acknowledge a decrease in energy level. He does acknowledge bilateral knee pain. He denies myalgias, or claudication. He does not have edema, or sudden weight gain. He does acknowledge lightheadedness. He denies dizziness, syncopal or near syncopal episodes, and headaches. Intake Vital Signs 03/12/25 14:27 03/26/25 07:31 Height 6 ft 4 in 6 ft 4 in Weight: 373 lb BMI 45.3 BP 117/81 H Blood Pressure Location Lt brachial Position Sitting Respiration 22 H Pulse 90 Pulse Source Monitor Pulse Oximetry (%) 94 Intake Visit Reasons: Worsening SOB Pants Presser Required: No Is patient in pain?: No Allergies bee venom protein (honey bee) Allergy (Verified 03/26/25 15:36) Swelling atorvastatin Adverse Reaction (Severe, Verified 03/26/25 15:36) Myalgias cephalexin (From Keflex) Adverse Reaction (Verified 03/26/25 15:36) GIVES ME THE JITTERS shellfish derived Adverse Reaction (Verified 03/26/25 15:36) Nausea/Vom/Diarrhea Medications ???Medication ???Instructions ???Recorded ???Confirmed ???Type metoprolol tartrate 25 mg tablet 25 mg PO BID 10/27/20 03/26/25 His tory multivitamin 1 tab PO DAILY 03/27/21 03/26/25 H istory glucosamine HCl 1,500 mg tablet 1,000 mg PO DAILY 08/17/21 5 History losartan 100 mg tablet 100 mg PO DAILY 11/17/21 03/26/25 History amlodipine 10 mg tablet (Norvasc) 10 mg PO DAILY 09/12/23 03/26/25 History duloxetine 30 mg capsule,delayed 30 mg PO DAILY 09/12/23 03/26/25 H istory release (Cymbalta) coenzyme Q10 100 mg capsule (Co 300 mg PO DAILY 03/04/25 03/26/25 History Q-10) aspirin 81 mg chewable tablet 81 mg PO BREAKFAST 90 days #90 tab s 03/06/25 03/26/25 Rx clopidogrel 75 mg tablet (Plavix) 75 mg PO DAILY 1 month #30 tabs 0 03/06/25 03/26/25 Rx ezetimibe 10 mg tablet (Zetia) 10 mg PO QDAY #30 tabs 03/12/25 Rx evolocumab 140 mg/mL subcutaneous 140 mg subcut Q2W #2 mL 03/26/25 03/26/25 Rx pen injector (Repjolene SureRuizick) Ejection fraction %: 60 Have you fallen in the past year?: No Nurse's Note: dr Holder prescribed a new medication but has no idea what it is. [facility] Medical History (Reviewed 03/26/25 @ 15:35 by Norma Crow [employer], [employer]-C) Non-ST elevation NV (NSTEMI) Wears glasses Cancer Arthritis History of Holter monitoring Normal stress echocardiogram History of stress test Hypertension Cardiology follow-up encounter Anxiety Umbilical hernia Essential hypertension Wears contact lenses Depression History of steroid therapy Chronic pain Shortness of breath on exertion Former smoker Edema Myocardial infarct Hx of echocardiogram Back pain right elbow surgery History of lateral wall myocardial infarction (07/22/09) Atherosclerotic heart disease of [place] coronary artery without angina pectoris HTN (hypertension) Morbid obesity with BMI of 40.0-44.9, adult Tobacco use disorder HLD (hyperlipidemia) Family history of ischemic heart disease Surgical History History of coronary artery stent placement S/P umbilical hernia repair, follow-up exam Hx of surgical procedure History of surgery on arm History of dental surgery Stented coronary artery (07/22/09) Family History (Reviewed 03/26/25 @ 15:35 by Norma Crow [employer], [employer]-C) Father , Age 57 of [place], had NV/CAD at age (more content not included)... Normal [facility] Chest PA and Lateralon 03-26 Chest PA and Lateral [facility] Imaging Services [address] [place] [address] Chest PA and Lateral MR#: [id number] Acct: [id number] Name: ARGELIA COPELAND Rep #: [id number] : 1970 M 55 From: Cleo Merritt PCP: Dr. Eric Odom MD Status: [facility] CLI Study: Chest PA and Lateral Date of Exam: 03/26/25 Exam# [id number] Ordering Dr: Norma Crow NP [employer]- C PROCEDURE: CHEST PA AND LATERAL 03/26/2025 REASON FOR EXAM: ROGERS TECHNIQUE: CHEST PA AND LATERAL COMPARISON: 03/04/2025 FINDINGS: No focal consolidation. No pleural effusion or pneumothorax. Cardiac silhouette is within normal limits. No acute fractures. RAD/Chest PA and Lateral IMPRESSION: No focal consolidations. Reading Location: [id number] CC: BECKY Crow; Dr. Eric Odom MD [place]: Signed Normal [facility] Chloride assayOrdered By: Negrito Crow on 03-26-2025 Chloride [Moles/Vol] 107 mmol/L 98-108 [facility] Eosinophil percentageOrdered By: Norma Crow on 03-26-2025 Eosinophils/100 WBC (Bld) 2.5 % 0-5 [facility] Erythrocyte distribution wid th ratioOrdered By: Norma Crow on 03-26-2025 Erythrocyte distribution width (RBC) [Ratio] 13.2 % 11.6-14.6 [facility] Erythrocyte distribution wid th standard deviationOrdered By: Norma Crow on 03-26-2025 Erythrocyte distribution width (RBC) [Ratio] 42.2 fl 35.1-43.9 [facility] Glomerular filtration rate ( GFR) estimation/1.73 sq m using serum, plasma, or whole bOrdered By: Norma Crow on 03-26-2025 GFR/1.73 sq M.predicted among non-blacks MDRD (S/P/Bld) [Vol rate/Area] 81 mL/min/{1.73_m2} >60 [facility] Comment on above: mL/min/1.73m2 CKD-EP I Creatinine Equation (2020) Hematocrit Auto (Bld) [Volum e fraction]Ordered By: Norma Crow on 03-26-2025 Hematocrit (Bld) [Volume fraction] 47.1 % 40-54 [facility] Hemoglobin measurementOrdere d By: Norma Crow on 03-26-2025 Hemoglobin (Bld) [Mass/Vol] 16.1 g/dL 13.0-16.5 [facility] Immature granulocytes/100 WB C Auto (Bld)Ordered By: Norma Crow on 03-26-2025 Immature granulocytes/100 WBC (Bld) 0.500 % 0.0-0.9 [facility] Comment on above: IG% - Immature Granu locytes (promyelocytes, myelocytes and metamyelocytes) > 1% indicates that a LEFT SHIFT is Present. L503.7505on 03-26-2025 Natriuretic peptide B (Bld) [Mass/Vol] 88 pg/mL Normal <=900 [facility] Comment on above: Result Comment: Hear t Failure Unlikely: < 300 pg/mL Heart Failure Likely < 50 Years: > 450 pg/mL 50-75 Years: > 900 pg/mL >75 Years: > 1800 pg/mL Performed By: #### L 300.4310 #### [facility] [address] [place], [place], [address] MCV (mean corpuscular volume ) determinationOrdered By: Norma Crow on 03-26-2025 MCV (RBC) [Entitic vol] 87.7 fL 80-94 [facility] Magnesiumon 03-26-2025 Magnesium [Mass/Vol] 2.2 mg/dL Normal 1.5-2.2 [facility] Comment on above: Performed By: #### L 300.4310 #### [facility] [address] [place], [place], [address] Magnesium measurement (mass/ volume)Ordered By: Norma Crow on 03-26-2025 Magnesium (Unsp spec) [Mass/Vol] 2.2 mg/dL 1.5-2.2 [facility] Mean corpuscular hemoglobin (MCH) determinationOrdered By: Norma Crow on 03-26-2025 MCH (RBC) [Entitic mass] 30.0 pg 27.0-32.0 [facility] Mean corpuscular hemoglobin concentration (MCHC) determinationOrdered By: Norma Crow on 03-26-2025 MCHC (RBC) [Mass/Vol] 34.2 g/dL 32-36 [facility] Mean platelet volume determi nationOrdered By: Norma Crow on 03-26-2025 Platelet mean volume (Bld) [Entitic vol] 9.7 fL 6.2-12.0 [facility] Monocyte percentageOrdered B y: Norma Crow on 03-26-2025 Monocytes/100 WBC (Bld) 6.8 % 0-10 [facility] Natriuretic peptide.B prohor joi N-Terminal [Mass/volume] in Serum or PlasmaOrdered By: Norma Crow on 03-26-2025 Natriuretic peptide.B prohormone N-Terminal [Mass/Vol] 88 pg/mL <900 [facility] Comment on above: Heart Failure Unlike ly: < 300 pg/mLHeart Failure Likely< 50 Years: > 450 pg/mL50-75 Years: > 900 pg/mL>75 Years: > 1800 pg/mL Neutrophil percentageOrdered By: Norma Crow on 03-26-2025 Neutrophils/100 WBC (Bld) 62.6 % 47-70 [facility] Nucleated red blood cell per centageOrdered By: Norma Crow on 03-26-2025 Nucleated RBC/100 WBC (Bld) [Ratio] 0 % 0-5 [facility] Platelet countOrdered By: Negrito Crow on 03-26-2025 Platelets (Bld) [#/Vol] 364 10*3/uL 150-450 [facility] Potassium measurement (mass/ volume)Ordered By: Norma Crow on 03-26-2025 Potassium (Unsp spec) [Mass/Vol] 4.1 mmol/L 3.3-5.1 [facility] RBC Auto (Bld) [#/Vol]Ordere d By: Norma Crow on 03-26-2025 RBC (Bld) [#/Vol] 5.37 10*6/uL 4.6-6.2 [facility] Serum creatinine measurement (mass/volume)Ordered By: Norma Crow on 03-26-2025 Creatinine [Mass/Vol] 1.08 mg/dL 0.70-1.20 [facility] Serum glucose measurement (m ass/volume)Ordered By: Norma Crow on 03-26-2025 Glucose [Mass/Vol] 125 mg/dL High 70-99 [facility] Serum or plasma calcium rigoberto urement (mass/volume)Ordered By: Norma Crow on 03-26-2025 Calcium [Mass/Vol] 9.1 mg/dL 7.6-11.0 [facility] Serum or plasma urea nitroge n measurement (mass/volume)Ordered By: Norma Crow on 03-26-2025 Urea nitrogen [Mass/Vol] 11 mg/dL 4-19 [facility] Sodium levelOrdered By: Jayda Crow on 03-26-2025 Sodium [Moles/Vol] 140 mmol/L 133-145 [facility] TSH DL <= 0.005 mIU/L QnOrde red By: Norma Crow on 03-26-2025 TSH Qn 2.340 uIU/mL 0.300-4.200 [facility] Thyroid Stim Hormone (TSH)on 03-26-2025 TSH 2.340 uIU/mL Normal 0.300-4.200 [facility] Comment on above: Performed By: #### L 300.4310 #### [facility] [address] [place], [place], [address] White blood cell (WBC) count Ordered By: Norma Crow on 03-26-2025 WBC (Bld) [#/Vol] 8.8 10*3/uL 4.4-11.0 [facility] Absolute lymphocyte countOrd ered By: Norma Crow on 03-12-2025 Lymphocytes Auto (Unsp spec) [#/Vol] 2.15 10*3/uL 0.83-4.51 [facility] Absolute neutrophil countOrd ered By: Norma Crow on 03-12-2025 Neutrophils (Bld) [#/Vol] 6.3 10*3/uL 2.0-7.7 [facility] Anion gap in Serum or Plasma Ordered By: Norma Crow on 03-12-2025 Anion gap [Moles/Vol] 15 mmol/L 5-15 [facility] Automated lymphocyte count a s percentage of total leukocytesOrdered By: Norma Crow on 03-12-2025 Lymphocytes/100 WBC Auto (Unsp spec) 22.6 % - [facility] BUN/creatinine ratioOrdered By: Norma Crow on 03-12-2025 Urea nitrogen/Creatinine [Mass ratio] 12.1 mg/mg 10- [facility] Basic Metabolic Profile (BMP )on 03-12-2025 BUN/CRE 12.1 RATIO Normal 06-24 [facility] Comment on above: Performed By: #### L 499.0043 #### [facility] [address] [place], [address] Calcium [Mass/Vol] 9.3 mg/dL Normal 7.6-11.0 [facility] Comment on above: Performed By: #### L 499.0043 #### [facility] [address] [place], [address] Chloride [Moles/Vol] 103 mmol/L Normal 98-108 [facility] Comment on above: Performed By: #### L 499.0043 #### [facility] [address] [place], [address] CO2 [Moles/Vol] 20.0 mmol/L Low 21.0-32.0 [facility] Comment on above: Performed By: #### L 499.0043 #### [facility] [address] [place], [address] Creatinine [Mass/Vol] 0.99 mg/dL Normal 0.70-1.20 [facility] Comment on above: Performed By: #### L 499.0043 #### [facility] [address] [place], [address] GAP 15 Normal 5-15 [facility] Comment on above: Performed By: #### L 499.0043 #### [facility] [address] [place], [address] GFR/1.73 sq M.predicted among non-blacks MDRD (S/P/Bld) [Vol rate/Area] 90 mL/min/{1.73_m2} Normal >60 [facility] Comment on above: Result Comment: mL/m in/1.73m2 CKD-EPI Creatinine Equation (2020) Performed By: #### L 499.0043 #### [facility] [address] [place], [address] Glucose [Mass/Vol] 107 mg/dL High 70-99 [facility] Comment on above: Performed By: #### L 499.0043 #### [facility] [address] [place], [place], [address] Potassium [Moles/Vol] 3.7 mmol/L Normal 3.3-5.1 [facility] Comment on above: Performed By: #### L 499.0043 #### [facility] [address] [place], [address] Sodium [Moles/Vol] 138 mmol/L Normal 133-145 [facility] Comment on above: Performed By: #### L 499.0043 #### [facility] [address] [place], [place], [address] Urea nitrogen [Mass/Vol] 12 mg/dL Normal 4-19 [facility] Comment on above: Performed By: #### L 499.0043 #### [facility] [address] [place], [place], [address] Basophil percentageOrdered B y: Norma Crow on 03-12-2025 Basophils/100 WBC (Bld) 1.3 % High 0-1 [facility] Bilirubin directOrdered By: Norma Crow on 03-12-2025 Bilirubin.direct [Mass/Vol] 0.20 mg/dL 0.00-0.30 [facility] Bilirubin, totalOrdered By: Norma Crow on 03-12-2025 Bilirubin [Mass/Vol] 0.57 mg/dL 0.00-1.30 [facility] CBC W/Diff, Automatedon Absolute Lymph 2.15 X10 3/uL Normal 0.83-4.51 [facility] Comment on above: Performed By: #### L 499.0043 #### [facility] [address] [place], [place], [address] Absolute Neut 6.3 X10 3/uL Normal 2.0-7.7 [facility] Comment on above: Performed By: #### L 499.0043 #### [facility] [address] [place], [address] Basophils/100 WBC (Bld) 1.3 % High 0-1 [facility] Comment on above: Performed By: #### L 499.0043 #### [facility] [address] [place], [address] Eosinophils/100 WBC (Bld) 1.8 % Normal 0-5 [facility] Comment on above: Performed By: #### L 499.0043 #### [facility] [address] [place], [address] Erythrocyte distribution width (RBC) [Ratio] 13.2 % Normal 11.6-14.6 [facility] Comment on above: Performed By: #### L 499.0043 #### [facility] [address] [place], [address] Hematocrit (Bld) [Volume fraction] 45.7 % Normal 40-54 [facility] Comment on above: Performed By: #### L 499.0043 #### [facility] [address] [place], [address] Hemoglobin (Bld) [Mass/Vol] 15.9 g/dL Normal 13.0-16.5 [facility] Comment on above: Performed By: #### L 499.0043 #### [facility] [address] [place], [address] IG% 0.300 Normal 0.0-0.9 [facility] Comment on above: Result Comment: IG% - Immature Granulocytes (promyelocytes, myelocytes and metamyelocytes) > 1% indicates that a LEFT SHIFT is Present. Performed By: #### L 499.0043 #### [facility] [address] [place], [address] Lymphocytes/100 WBC (Bld) 22.6 % Normal 19-41 [facility] Comment on above: Performed By: #### L 499.0043 #### [facility] [address] [place], [address] MCH (RBC) [Entitic mass] 30.2 pg Normal 27.0-32.0 [facility] Comment on above: Performed By: #### L 499.0043 #### [facility] [address] [place], [address] MCHC (RBC) [Mass/Vol] 34.8 g/dL Normal 32-36 [facility] Comment on above: Performed By: #### L 499.0043 #### [facility] [address] [place], [address] MCV (RBC) [Entitic vol] 86.9 fL Normal 80-94 [facility] Comment on above: Performed By: #### L 499.0043 #### [facility] [address] [place], [address] Monocytes/100 WBC (Bld) 8.3 % Normal 0-10 [facility] Comment on above: Performed By: #### L 499.0043 #### [facility] [address] [place], [address] Neutrophils/100 WBC (Bld) 65.7 % Normal 47-70 [facility] Comment on above: Performed By: #### L 499.0043 #### [facility] [address] [place], [address] Nucleated RBC (Bld) [#/Vol] 0 10*3/uL Normal 0-5 [facility] Comment on above: Performed By: #### L 499.0043 #### [facility] [address] [place], [address] Platelet mean volume (Bld) [Entitic vol] 10.1 fL Normal 6.2-12.0 [facility] Comment on above: Performed By: #### L 499.0043 #### [facility] [address] [place], [address] Platelets (Bld) [#/Vol] 344 10*3/uL Normal 150-450 [facility] Comment on above: Performed By: #### L 499.0043 #### [facility] [address] [place], [address] RBC (Bld) [#/Vol] 5.26 10*6/uL Normal 4.6-6.2 [facility] Comment on above: Performed By: #### L 499.0043 #### [facility] [address] [place], [address] RDW SD 41.1 fl Normal 35.1-43.9 [facility] Comment on above: Performed By: #### L 499.0043 #### [facility] [address] [place], [address] WBC (Bld) [#/Vol] 9.5 10*3/uL Normal 4.4-11.0 [facility] Comment on above: Performed By: #### L 499.0043 #### [facility] [address] [place], [address] Calculated very low density lipoprotein (VLDL) cholesterol measurementOrdered By: Norma Crow on 03-12-2025 Calculated very low density lipoprotein (VLDL) cholesterol measurement 36 mg/dL 5-40 [facility] Carbon dioxide, total [Moles /volume] in Central venous bloodOrdered By: Norma Crow on 03-12-2025 CO2 [Moles/Vol] 20.0 mmol/L Low 21.0-32.0 [facility] Cardiology Visit Reporton Cardiology Visit Report [facility] [address] [place], [place] [address] OFFICE VISIT Date of Service: 03/12/25 MR#: [id number] Acct: [id number] Name: ARGELIA COPELAND Rep #: [id number] : 1970 Provider: BECKY arana Age/Sex: 54/M [place] [facility] [place] Status: Signed HPI HPI History of Present Illness Details: ARGELIA COPELAND, is a 54 year old male that presents to the office today for a cardiovascular hospital follow up visit. Patient was last seen in our office in 2021. He has a history of hypertension, hypercholesterolemia , coronary artery disease status post lateral wall myocardial infarction on 07/22/2009 and is status post percutaneous intervention of an unknown artery at [facility] with Dr Nguyen. Patient presented to the emergency room on 03/04/2025 with complaints of chest pain. He states this feels very similar to his previous heart attack. Patient was admitted for heart catheterization, which demonstrated ruptured plaque in the distal part of his left main, he does have nonobstructive coronary artery disease noted in multiple arteries. Medical therapy was recommended. From a cardiac standpoint, the patient is doing well. He does acknowledge one episode of chest pain with lifting a heavy object. He states he does have pain between his shoulder blades with exertion. He does acknowledge SOB with exertion. He denies Orthopnea, and PND. He does not have bleeding issues; no blood in urine, stool, or nosebleeds. He denies any decrease in energy level, myalgias, or claudication. He does not have edema, or sudden weight gain. He does acknowledge lightheadedness with positional changes. He denies dizziness, syncopal or near syncopal episodes, and headaches. Intake Vital Signs 03/04/25 17:15 03/12/25 14:21 03/12/25 14:22 03/12/25 14:27 Height 6 ft 4 in 6 ft 4 in 6 ft 4 in Weight: 373 lb BMI 45.3 BP 133/77 H 110/69 Blood Pressure Location Rt brachial Rt brachial Position Sitting Standing Respiration 16 Pulse 65 Pulse Source Monitor Pulse Oximetry (%) 95 Oxygen Delivery Method room air Intake Visit Reasons: S/P [facility] 7/2 NSTEMI Allergies bee venom protein (honey bee) Allergy (Verified 03/12/25 14:26) Swelling atorvastatin Adverse Reaction (Severe, Verified 03/12/25 14:26) Myalgias cephalexin (From Keflex) Adverse Reaction (Verified 03/12/25 14:26) GIVES ME THE JITTERS shellfish derived Adverse Reaction (Verified 03/12/25 14:26) Nausea/Vom/Diarrhea Medications ???Medication ???Instructions ???Recorded ???Confirmed ???Type metoprolol tartrate 25 mg tablet 25 mg PO BID 10/27/20 03/12/25 His tory multivitamin 1 tab PO DAILY 03/27/21 03/12/25 H istory glucosamine HCl 1,500 mg tablet 1,000 mg PO DAILY 08/17/21 5 History losartan 100 mg tablet 100 mg PO DAILY 11/17/21 03/12/25 History amlodipine 10 mg tablet (Norvasc) 10 mg PO DAILY 09/12/23 03/12/25 History duloxetine 30 mg capsule,delayed 30 mg PO DAILY 09/12/23 03/12/25 H istory release (Cymbalta) coenzyme Q10 100 mg capsule (Co 300 mg PO DAILY 03/04/25 03/12/25 History Q-10) aspirin 81 mg chewable tablet 81 mg PO BREAKFAST 90 days #90 tab s 03/06/25 03/12/25 Rx clopidogrel 75 mg tablet (Plavix) 75 mg PO DAILY 1 month #30 tabs 0 03/06/25 03/12/25 Rx ezetimibe 10 mg tablet (Zetia) 10 mg PO QDAY #30 tabs 03/12/25 Rx PFSH Medical History (Reviewed 03/12/25 @ 16:32 by Norma Crow [employer]PERVIS[employer]OUNT[employer]ER[employer], SUPERVISOR ACCOUNTING [employer]ERKS-C) Wears glasses Cancer Arthritis History of Holter monitoring Normal stress echocardiogram History of stress test Hypertension Cardiology follow-up encounter Anxiety Umbilical hernia Essential hypertension Wears contact lenses Depression History of steroid therapy Chronic pain Shortness of breath on exertion Former smoker Edema Myocardial infarct Hx of echocardiogram Back pain right elbow surgery History of lateral wall myocardial infarction (07/22/09) Atherosclerotic heart disease of [place] coronary artery without angina pectoris HTN (hypertension) Morbid obesity with BMI of 40.0-44.9, adult Tobacco use disorder HLD (hyperlipidemia) Family history of ischemic heart disease Surgical History (Reviewed 03/12/25 @ 16:32 by Norma Crow SUPERVIS[employer]OUNTING [employer], SUPERVISOR ACCOUNTING [employer]ER[employer]-C) History of coronary artery stent placement S/P umbilical hernia repair, follow-up exam Hx of surgical procedure History of surgery on arm History of dental surgery Stented coronary artery (07/22/09) Family History (Reviewed 03/12/25 @ 16:32 by Norma Crow SUPERVISOR ACCOUNTING [employer]ERKS, SUPERVISOR ACCOUNTING [employer]ERKS-C) Father , Age 57 of [place], had [place]/CAD at age 39 CAD (coronary artery disease) Myocardial infarction Mother Hypertension Sister Hypertension Social History (Reviewed 03/12/25 @ 16:32 by Norma Crow SUPERVISOR ACCOUNTING [employer]ERKS, SUPERVISOR ACCOUNTING [employer]ERKS-C) household members: other details: mother veronn (more content not included)... Normal [facility] Chloride assayOrdered By: Negrito Crow on 03-12-2025 Chloride [Moles/Vol] 103 mmol/L 98-108 [facility] Eosinophil percentageOrdered By: Norma Crow on 03-12-2025 Eosinophils/100 WBC (Bld) 1.8 % 0-5 [facility] Erythrocyte distribution wid th ratioOrdered By: Norma Crow on 03-12-2025 Erythrocyte distribution width (RBC) [Ratio] 13.2 % 11.6-14.6 [facility] Erythrocyte distribution wid th standard deviationOrdered By: Norma Crow on 03-12-2025 Erythrocyte distribution width (RBC) [Ratio] 41.1 fl 35.1-43.9 [facility] Glomerular filtration rate ( GFR) estimation/1.73 sq m using serum, plasma, or whole bOrdered By: Norma Crow on 03-12-2025 GFR/1.73 sq M.predicted among non-blacks MDRD (S/P/Bld) [Vol rate/Area] 90 mL/min/{1.73_m2} >60 [facility] Comment on above: mL/min/1.73m2 CKD-EP I Creatinine Equation (2020) Hematocrit Auto (Bld) [Volum e fraction]Ordered By: Norma Crow on 03-12-2025 Hematocrit (Bld) [Volume fraction] 45.7 % 40-54 [facility] Hemoglobin measurementOrdere d By: Norma Crow on 03-12-2025 Hemoglobin (Bld) [Mass/Vol] 15.9 g/dL 13.0-16.5 [facility] Immature granulocytes/100 WB C Auto (Bld)Ordered By: Norma Crow on 03-12-2025 Immature granulocytes/100 WBC (Bld) 0.300 % 0.0-0.9 [facility] Comment on above: IG% - Immature Granu locytes (promyelocytes, myelocytes and metamyelocytes) > 1% indicates that a LEFT SHIFT is Present. LDL calc ser/plasOrdered By: Norma Crow on 03-12-2025 Cholesterol in LDL [Mass/Vol] 144 mg/dL [facility] Comment on above: Jchivhrkse=670-721 m g/dL & Higher Qxnm=579 mg/dL or greater Laboratory - Chemistry and C hemistry - challengeOrdered By: Norma Crow on 03-12-2025 AST [Catalytic activity/Vol] 21 U/L <38 [facility] Lipid Profileon 03-12-2025 CHOL:HDL 5.74 Normal [facility] Comment on above: Performed By: #### L 499.0043 #### [facility] [address] [place], [address] (035) Cholesterol [Mass/Vol] 218 mg/dL High <=200 [facility] Comment on above: Result Comment: Chol esterol level, Desirable <200 mg/dL Borderline high cholesterol 200-239 mg/dL High cholesterol >=240 mg/dL Recommendations of the NCEP Adult Treatment Panel for the following risk-cutoff thresholds for the [place] population. Performed By: #### L 499.0043 #### [facility] [address] [place], [address] (353) Cholesterol in HDL [Mass/Vol] 38 mg/dL Low [facility] Comment on above: Result Comment: Leanna onal Cholesterol Education Program (NCEP) guidelines: <40 mg/dL: Low HDL-cholesterol (major risk factor for CHD) >= 60 mg/dL: High HDL-cholesterol (negative risk factor for CHD) HDL-cholesterol is affected by a number of factors, e.g. smoking, exercise, hormones, sex and age. Performed By: #### L 499.0043 #### [facility] [address] [place], [address] (172) Cholesterol in LDL [Mass/Vol] 144 mg/dL Normal [facility] Comment on above: Result Comment: Bord rtijgl=154-472 mg/dL Higher Vagd=151 mg/dL or greater Performed By: #### L 499.0043 #### [facility] [address] [place], [address] Cholesterol in VLDL [Mass/Vol] 36 mg/dL Normal 5-40 [facility] Comment on above: Performed By: #### L 499.0043 #### [facility] [address] [place], [place], [id number] Triglyceride [Mass/Vol] 178 mg/dL Normal [facility] Comment on above: Result Comment: The drugs N-Acetylcysteine and Metamizole may falsely depress this assay. Normal range: <150 mg/dL Borderline High: 150-199 mg/dL High: 200-499 mg/dL Very High: >500 mg/dL Performed By: #### L 499.0043 #### [facility] [address] [place], [place], [id number] Liver Profileon 03-12-2025 Bilirubin.direct [Mass/Vol] 0.20 mg/dL Normal 0.00-0.30 [facility] Comment on above: Performed By: #### L 499.0043 #### [facility] [address] [place], [place], [id number] MCV (mean corpuscular volume ) determinationOrdered By: Norma Crow on 03-12-2025 MCV (RBC) [Entitic vol] 86.9 fL 80-94 [facility] Magnesiumon 03-12-2025 Magnesium [Mass/Vol] 1.8 mg/dL Normal 1.5-2.2 [facility] Comment on above: Performed By: #### L 499.0043 #### [facility] [address] [place], [place], [id number] Magnesium measurement (mass/ volume)Ordered By: Norma Crow on 03-12-2025 Magnesium (Unsp spec) [Mass/Vol] 1.8 mg/dL 1.5-2.2 [facility] Mean corpuscular hemoglobin (MCH) determinationOrdered By: Norma Crow on 03-12-2025 MCH (RBC) [Entitic mass] 30.2 pg 27.0-32.0 [facility] Mean corpuscular hemoglobin concentration (MCHC) determinationOrdered By: Norma Crow on 03-12-2025 MCHC (RBC) [Mass/Vol] 34.8 g/dL 32-36 [facility] Mean platelet volume determi nationOrdered By: Norma Crow on 03-12-2025 Platelet mean volume (Bld) [Entitic vol] 10.1 fL 6.2-12.0 [facility] Monocyte percentageOrdered B y: Norma Crow on 03-12-2025 Monocytes/100 WBC (Bld) 8.3 % 0-10 [facility] Neutrophil percentageOrdered By: Norma Crow on 03-12-2025 Neutrophils/100 WBC (Bld) 65.7 % 47-70 [facility] Nucleated red blood cell per centageOrdered By: Norma Crow on 03-12-2025 Nucleated RBC/100 WBC (Bld) [Ratio] 0 % 0-5 [facility] Platelet countOrdered By: Negrito Crow on 03-12-2025 Platelets (Bld) [#/Vol] 344 10*3/uL 150-450 [facility] Potassium measurement (mass/ volume)Ordered By: Norma Crow on 03-12-2025 Potassium (Unsp spec) [Mass/Vol] 3.7 mmol/L 3.3-5.1 [facility] RBC Auto (Bld) [#/Vol]Ordere d By: Norma Crow on 03-12-2025 RBC (Bld) [#/Vol] 5.26 10*6/uL 4.6-6.2 [facility] Screening total cholesterol/ high density lipoprotein (HDL) cholesterol ratioOrdered By: Norma Crow on 03-12-2025 Cholesterol.total/Lenore sterol in HDL [Mass ratio] 5.74 {ratio} [facility] Serum creatinine measurement (mass/volume)Ordered By: Norma Crow on 03-12-2025 Creatinine [Mass/Vol] 0.99 mg/dL 0.70-1.20 [facility] Serum globulin measurementOr dered By: Norma Crow on 03-12-2025 Globulin (S) [Mass/Vol] 3.3 g/dL 2.2-4.2 [facility] Serum glucose measurement (m ass/volume)Ordered By: Norma Crow on 03-12-2025 Glucose [Mass/Vol] 107 mg/dL High 70-99 [facility] Serum or plasma alanine yang otransferase (ALT) measurementOrdered By: Norma Crow on 03-12-2025 ALT [Catalytic activity/Vol] 31 U/L <47 [facility] Serum or plasma albumin rigoberto urement (mass/volume)Ordered By: Norma Crow on 03-12-2025 Albumin [Mass/Vol] 4.1 g/dL 3.5-5.0 [facility] Serum or plasma alkaline thad sphatase measurementOrdered By: Norma Crow on 03-12-2025 ALP [Catalytic activity/Vol] 110 U/L 40-129 [facility] Serum or plasma calcium rigoberto urement (mass/volume)Ordered By: Norma Crow on 03-12-2025 Calcium [Mass/Vol] 9.3 mg/dL 7.6-11.0 [facility] Serum or plasma cholesterol in HDL measurement (mass/volume)Ordered By: Norma Crow on 03-12-2025 Cholesterol in HDL [Mass/Vol] 38 mg/dL Low >40 [facility] Comment on above: National Cholesterol Education Program (NCEP) guidelines:<40 mg/dL: Low HDL-cholesterol (major risk factor for CHD)>= 60 mg/dL: High HDL-cholesterol (negative risk factor for CHD)HDL-cholesterol is affected by a number of factors, e.g. smoking, exercise, hormones, sex and age. Serum or plasma cholesterol measurement (mass/volume)Ordered By: Norma Crow on 03-12-2025 Cholesterol [Mass/Vol] 218 mg/dL High <201 [facility] Comment on above: Cholesterol level, D esirable <200 mg/dLBorderline high cholesterol 200-239 mg/dLHigh cholesterol >=240 mg/dLRecommendations of the NCEP Adult Treatment Panel for the following risk-cutoff thresholds for the [place] population. Serum or plasma urea nitroge n measurement (mass/volume)Ordered By: Norma Crow on 03-12-2025 Urea nitrogen [Mass/Vol] 12 mg/dL 4-19 [facility] Sodium levelOrdered By: Jayda Crow on 03-12-2025 Sodium [Moles/Vol] 138 mmol/L 133-145 [facility] Total proteinOrdered By: Parviz Crow on 03-12-2025 Protein [Mass/Vol] 7.4 g/dL 5.9-8.4 [facility] Triglycerides measurementOrd ered By: Norma Crow on 03-12-2025 Triglyceride [Mass/Vol] 178 mg/dL <199 [facility] Comment on above: The drugs N-Acetylcy steine and Metamizole may falsely depress this assay. Normal range: <150 mg/dLBorderline High: 150-199 mg/dLHigh: 200-499 mg/dLVery High: >500 mg/dL White blood cell (WBC) count Ordered By: Norma Crow on 03-12-2025 WBC (Bld) [#/Vol] 9.5 10*3/uL 4.4-11.0 [facility] 12 Lead EKGon 03-06-2025 12 Lead EKG [facility] Cardiovascular Services [address] [place] [address] 12 Lead EKG 03/06/25 0756 MR#: [id number] Acct: [id number] Name: ARGELIA COPELAND Rep #: [id number] : 1970 54 From: Christiano Hatfield MD Attending Dr: Dr. Sam Cuellar MD Status: ADM IN Ordering Dr: Sam Cuellar MD Date: 03/06/25 Location: [facility] Sex: M C Admitted: 03/04/25 Test Reason : Blood Pressure : */* mmHG Vent. Rate : 59 BPM Atrial Rate : 59 BPM P-R Int : 208 ms QRS Dur : 100 ms QT Int : 432 ms P-R-T Axes : 30 58 40 degrees QTcB Int : 427 ms Sinus bradycardia Otherwise normal ECG When compared with ECG of 04-Mar-2025 13:32, No significant change was found Confirmed by CHRISTIANO HATFIELD MD ([id number]), non linear editor PEPPER HARGROVE ([id number]) on 03/06/2025 1:52:25 PM Referred By: Hamilton Corral Confirmed By: CHRISTIANO HATFIELD MD 03/06/25 1352 Date Christiano Hatfield MD CC: Dr. Hamilton Corral DO; Dr. Eric Odom MD; Dr. Sam Cuellar MD Signed Normal [facility] Activated partial thrombopla stin time (aPTT) in platelet poor plasma by coagulation aOrdered By: Sam Cuellar on 03-06-2025 aPTT Coag (PPP) [Time] 23.8 s Low 24.1-36.2 [facility] Anion gap in Serum or Plasma Ordered By: Benji Florez on 03-06-2025 Anion gap [Moles/Vol] 16 mmol/L High 5-15 [facility] BUN/creatinine ratioOrdered By: Benji Florez on 03-06-2025 Urea nitrogen/Creatinine [Mass ratio] 11.8 mg/mg 10-20 [facility] Bilirubin, totalOrdered By: Benji Florez on 03-06-2025 Bilirubin [Mass/Vol] 0.35 mg/dL 0.00-1.30 [facility] CVS/PCIREPORTon 03-06-2025 CVS/PCIREPORT [facility] Cardi[facility] Services [address] [place] [address] MR#: [id number] Acct: [id number] Name: ARGELIA COPELAND Rep #: [id number] : 1970 54 From: Haritha Hernandez MD Primary Care: Dr. Eric Odom MD Status: ADM IN Referring Dr: Hamilton Corral DO Sex: M C PCI Cardiac Cath Report PCI Report: Left heart catheterization; 1. Moderate sedation 2. Selective left coronary angiography 3. Selective right coronary angiography 4. Measurement of LVEDP 5. Pullback pressure from the LV to the aorta 6. Placement of TR band to close the right radial artery arteriotomy site. Preprocedure diagnosis 54-year-old patient with history of CAD Has a prior PCI and stent, to the ramus intermedius artery. Patient has history of tobacco use disorder, hypertension, hyperlipidemia Had a history of lateral wall myocardial infarction. And has a very mild elevation of high-sensitivity troponins. Troponins around 34, trended to 23. Patient has been noncompliant with, no follow-up with a vp integrity since 2008. Based on the clinical presentation he was scheduled for cardiac catheterization today. Patient treated with medical therapy in the form of aspirin, heparin. He could not tolerate statin. Consent; Risk and benefits of the procedure explained in detail patient elected to proceed informed consent obtained. Access 6 Cypriot sheath placed in the right radial artery. Diagnostic catheter used 1. 5 Cypriot [place] catheter. 2. 5 Cypriot JR4 Procedure in detail; Patient brought to the Computer Art Instructor in fasting state Right radial artery area prepped and draped in the usual sterile fashion. With proceed with a diagnostic catheter using 5 [place] catheter advancing aortic cannulated left main Selective angiographic the left coronary system were obtained Following this catheter exchanged for 5 Cypriot JR4 Cross the aortic valve in place in the mid ventricle LVEDP was measured Pullback pressure recorded Following this catheter removed Engage the RCA Following this all catheter removed And hemostasis maintained with a TR band. To the right radial artery Hemodynamics; LVEDP measuring 19 mmHg 2. There is no systolic gradient across aortic valve. Coronary angiography; Left main coronary artery large vessel, bifurcating into LAD and left circumflex 1. At the distal part of the left main there is a ruptured plaque With distal left main around 40% 2. The left anterior descending artery is a large vessel reach all the way to the apex There are diffuse atherosclerosis involving the mid to distal left anterior descending artery The distal part which is at the apex is around 60%. 3. D1 which is a small to moderate in size Had ostial lesion around 60 to 70% 4. Ramus intermedius stent is patent With nonobstructive atherosclerosis involving the proximal part 5. Left circumflex ostial lesion of around 40%. 6. OM1 has a lesion of 50 to 60%, segmental lesions which is a small to moderate size vessel around 50-60% in the proximal and midportion. 7. RCA large dominant ectatic vessel. With nonobstructive atherosclerosis involving the proximal and mid segment of around 30%. Conclusion and recommendation; This is a 54-year-old patient with history of CAD prior PCI and stent in July 22, 2009 to the ramus intermedius no follow-up since then And was not on any medical therapy presented with symptoms of chest pain very mild elevation of high sensitive troponins. Advised the patient lifestyle change cessation of smoking, weight loss, aggressive treatment for underlying risk factors with the follow-up with cardiology and primary care physician. Based on the finding of cardiac catheterization recommendation is medical therapy and advised to follow-up with the vp integrity here at [facility] for continuation of cardiac care. Patient can be discharged from cardiac standpoint with recommend to start on dual antiplatelet therapy with Plavix aspirin, high-dose statin, beta-hernandez as tolerated. No complication in the Computer Art Instructor Haritha Hernandez MD,[facility] slip box changer 03/06/25 1057 Date Haritha Hernandez MD CC: Dr. Hamilton Corral DO; Dr. Eric Odom MD; Dr. Sam Cuellar MD Date Dictated: 03/06/251040 Date Transcribed: 03/06/251040 Kai Wh[place]: FB Signed Normal [facility] Carbon dioxide, total [Moles /volume] in Central venous bloodOrdered By: Benji Florez on 03-06-2025 CO2 [Moles/Vol] 21.0 mmol/L 21.0-32.0 [facility] Cardiac catheterization repo rtOrdered By: Haritha Hernandez on 03-06-2025 Cardiac catheterization study [facility] Cardi[facility] Services [address] [place] [id number] MR#: [id number] Acct: [id number] Name: ARGELIA COPELAND Rep #: [id number] : 1970 54 From: Haritha Hernandez MD Primary Care: Dr. Eric Odom MD Status : ADM IN Referring Dr: Hamilton Corral DO Sex: M C PCI Cardiac Cath Report PCI Report: Left heart catheterization; 1. Moderate sedation 2. Selective left coronary angiography 3. Selective right coronary angiography 4. Measurement of LVEDP 5. Pullback pressure from the LV to the aorta 6. Placement of TR band to close the right radial artery arteriotomy site. Preprocedure diagnosis 54-year-old patient with history of CAD Has a prior PCI and stent, to the ramus intermedius artery. Patient has history of tobacco use disorder, hypertension, hyperlipidemia Had a history of lateral wall myocardial infarction. And has a very mild elevation of high-sensitivity troponins. Troponins around 34, trended to 23. Patient has been noncompliant with, no follow-up with a vp integrity since 2008. Based on the clinical presentation he was scheduled for cardiac catheterization today. Patient treated with medical therapy in the form of aspirin, heparin. He could not tolerate statin. Consent; Risk and benefits of the procedure explained in detail patient elected to proceed informed consent obtained. Access 6 Cypriot sheath placed in the right radial artery. Diagnostic catheter used 1. 5 Cypriot [place] catheter. 2. 5 Cypriot JR4 Procedure in detail; Patient brought to the Computer Art Instructor in fasting state Right radial artery area prepped and draped in the usual sterile fashion. With proceed with a diagnostic catheter using 5 Cypriot [place] catheter advancing aortic cannulated left main Selective angiographic the left coronary system were obtained Following this catheter exchanged for 5 Cypriot JR4 Cross the aortic valve in place in the mid ventricle LVEDP was measured Pullback pressure recorded Following this catheter removed Engage the RCA Following this all catheter removed And hemostasis maintained with a TR band. To the right radial artery Hemodynamics; LVEDP measuring 19 mmHg 2. There is no systolic gradient across aortic valve. Coronary angiography; Left main coronary artery large vessel, bifurcating into LAD and left circumflex 1. At the distal part of the left main there is a ruptured plaque With distal left main around 40% 2. The left anterior descending artery is a large vessel reach all the way to the apex There are diffuse atherosclerosis involving the mid to distal left anterior descending artery The distal part which is at the apex is around 60%. 3. D1 which is a small to moderate in size Had ostial lesion around 60 to 70% 4. Ramus intermedius stent is patent With nonobstructive atherosclerosis involving the proximal part 5. Left circumflex ostial lesion of around 40%. 6. OM1 has a lesion of 50 to 60%, segmental lesions which is a small to moderate size vessel around 50-60% in the proximal and midportion. 7. RCA large dominant ectatic vessel. With nonobstructive atherosclerosis involving the proximal and mid segment of around 30%. Conclusion and recommendation; This is a 54-year-old patient with history of CAD prior PCI and stent in July 22, 2009 to the ramus intermedius no follow-up since then And was not on any medical therapy presented with symptoms of chest pain very mild elevation of high sensitive troponins. Advised the patient lifestyle change cessation of smoking, weight loss, aggressive treatment for underlying risk factors with the follow-up with cardiology and primary care physician. Based on the finding of cardiac catheterization recommendation is medical therapy and advised to follow-up with the vp integrity here at [facility] for continuation of cardiac care. Patient can be discharged from cardiac standpoint with recommend to start on dual antiplatelet therapy with Plavix aspirin, high-dose statin, beta-hernandez astolerated. No complication in the Computer Art Instructor Haritha Hernandez MD,[facility] slip box changer 03/06/25 1057 Date _ Haritha Hernandez MD CC: Dr. Hamilton Corral DO; Dr. Eric Odom MD; Dr. Sam Cuellar MD ~ Date Dictated: 03/06/25 1041 Date Transcribed: 03/06/251040 Kai [place]: OLEG Signed [facility] Work Phone: Chloride assayOrdered By: Rush Florez on 03-06-2025 Chloride [Moles/Vol] 102 mmol/L 98-108 [facility] Comprehensive Metabolic Prof ilon 03-06-2025 Albumin [Mass/Vol] 3.8 g/dL Normal 3.5-5.0 [facility] Comment on above: Performed By: #### L 499.0042 #### [facility] [address] [place], [place], [id number] Albumin/Globulin [Mass ratio] 1.2 {ratio} Normal 0.9-2.4 [facility] Comment on above: Performed By: #### L 499.0042 #### [facility] [address] [place], [place], [id number] ALK PHOS 97 U/L Normal 40-129 [facility] Comment on above: Performed By: #### L 499.0042 #### [facility] [address] [place], [address] ALT [Catalytic activity/Vol] 24 U/L Normal <=46 [facility] Comment on above: Performed By: #### L 499.0042 #### [facility] [address] [place], [address] AST [Catalytic activity/Vol] 21 U/L Normal <=37 [facility] Comment on above: Performed By: #### L 499.0042 #### [facility] [address] [place], [address] Bilirubin [Mass/Vol] 0.35 mg/dL Normal 0.00-1.30 [facility] Comment on above: Performed By: #### L 499.0042 #### [facility] [address] [place], [address] BUN/CRE 11.8 RATIO Normal 10-20 [facility] Comment on above: Performed By: #### L 499.0042 #### [facility] [address] [place], [address] Calcium [Mass/Vol] 9.1 mg/dL Normal 7.6-11.0 [facility] Comment on above: Performed By: #### L 499.0042 #### [facility] [address] [place], [address] Chloride [Moles/Vol] 102 mmol/L Normal 98-108 [facility] Comment on above: Performed By: #### L 499.0042 #### [facility] [address] [place], [address] CO2 [Moles/Vol] 21.0 mmol/L Normal 21.0-32.0 [facility] Comment on above: Performed By: #### L 499.0042 #### [facility] [address] [place], [address] Creatinine [Mass/Vol] 0.97 mg/dL Normal 0.70-1.20 [facility] Comment on above: Performed By: #### L 499.0042 #### [facility] [address] [place], [address] ECRCL 147.41 ml/min Normal 50-250 [facility] Comment on above: Performed By: #### L 499.0042 #### [facility] [address] [place], [address] GAP 16 High 5-15 [facility] Comment on above: Performed By: #### L 499.0042 #### [facility] [address] [place], [address] GFR/1.73 sq M.predicted among non-blacks MDRD (S/P/Bld) [Vol rate/Area] 93 mL/min/{1.73_m2} Normal >60 [facility] Comment on above: Result Comment: mL/m in/1.73m2 CKD-EPI Creatinine Equation (2020) Performed By: #### L 499.0042 #### [facility] [address] [place], [address] Globulin (S) [Mass/Vol] 3.1 g/dL Normal 2.2-4.2 [facility] Comment on above: Performed By: #### L 499.0042 #### [facility] [address] [place], [address] Glucose [Mass/Vol] 90 mg/dL Normal 70-99 [facility] Comment on above: Performed By: #### L 499.0042 #### [facility] [address] [place], [address] Potassium [Moles/Vol] 3.8 mmol/L Normal 3.3-5.1 [facility] Comment on above: Performed By: #### L 499.0042 #### [facility] [address] [place], [address] Sodium [Moles/Vol] 139 mmol/L Normal 133-145 [facility] Comment on above: Performed By: #### L 499.0042 #### [facility] [address] [place], [place], [address] T PROT 6.9 g/dL Normal 5.9-8.4 [facility] Comment on above: Performed By: #### L 499.0042 #### [facility] [address] [place], [place], [address] Urea nitrogen [Mass/Vol] 11 mg/dL Normal 4-19 [facility] Comment on above: Performed By: #### L 499.0042 #### [facility] [address] [place], [place], [address] Discharge Instructionon 070 Discharge Instruction [facility] Medical Records Department [address] [place] [address] Instructions for Home/Discharge Instructions 03/06/25 1030 MR#: [id number] Acct: [id number] Name: ARGELIA COPELAND Rep #: [id number] : 1970 54 From: Sam Cuellar MD PCP: Dr. Eric Odom MD Status:ADM IN Discharge Instructions DC O2, CPAP, BIPAP needs Home O2 Discharge instructions: No Follow Up Care Test Results: Test results from this visit will be discussed in further detail at your follow-up appointment, if applicable. Discharge Plan Admission Admit Date/Time: 03/04/25 16:31 Attending Provider: Sam Cuellar Primary Care Provider: Eric Odom Consulting Providers: Haritha Hernandez; Hamilton Corral Discharge Orders/Prescriptions Prescriptions: New aspirin 81 mg Tablet,Chewable 81 mg PO BREAKFAST 90 Days Qty: 90 1RF chlorthalidone 12.5 mg tablet 12.5 mg PO DAILY 30 Days Qty: 30 1RF clopidogrel [Plavix] 75 mg tablet 75 mg PO DAILY 30 Days Qty: 30 2RF rosuvastatin 10 mg tablet 10 mg PO DAILY 30 Days Qty: 30 2RF Continued metoprolol tartrate 25 mg tablet 25 mg [...] DAILY@0800 multivitamin Tablet 1 tab PO DAILY magnesium 200 mg tablet 400 mg PO DAILY coenzyme Q10 [Co Q-10] 100 mg capsule 300 mg PO DAILY Held ashwagandha root extract 500 mg capsule 1,300 mg PO DAILY Hold Instructions: Talk to PCP Discontinued magnesium 250 mg tablet 1,000 mg PO DAILY ibuprofen [Addaprin] 200 mg tablet 800 mg PO Q8H Referrals / Follow Up: Eric Odom MD [Primary Care Provider] - Angelica Whitman PA [Med Staff - [facility] Practice Prof] - Within 2 Weeks Disposition Disposition (needs filled in before D/C Order can be placed): Home, Self Care 03/06/25 1235 Sam Cuellar MD CC: Dr. Hamilton Corral DO; Dr. Haritha Hernandez MD; Dr. Eric Odom MD Signed Normal [facility] Electrocardiogram reportOrde red By: Christiano Hatfield on 03-06-2025 EKG study [facility] Cardiovascular Services [address] [place] [address] 12 Lead EKG 03/06/25 0756 MR#: [id number] Acct: [id number] Name: ARGELIA COPELAND Rep #:[id number] : 1970 54 From: Christiano Hatfield MD Attending Dr: Dr. Sam Cuellar MD Status: ADM IN Ordering Dr: Sam Cuellar MD Date: 03/06/25 Location: [facility] Sex: M C Admitted: 03/04/25 Test Reason : Blood Pressure : */* mmHG Vent. Rate : 59 BPM Atrial Rate : 59 BPM P-R Int : 208 ms QRS Dur : 100 ms QT Int : 432 ms P-R-T Axes : 30 58 40 degrees QTcB Int : 427 ms Sinus bradycardia Otherwise normal ECG When compared with ECG of 04-Mar-2025 13:32, No significant change was found Confirmed by MUARI MD, CHRISTIANO ([id number]), non linear editor PEPPER HARGROVE ([id number]) on 03/06/2025 1:52:25 PM Referred By: Hamilton Corral Confirmed By: CHRISTIANO HATFIELD MD 03/06/25 1352 Date _ Christiano Hatfield MD CC: Dr. Hamilton Corral, DO; Dr. Eric Odom MD; Dr. Sam Cuellar MD ~ Signed [facility] Other Glomerular filtration rate ( GFR) estimation/1.73 sq m using serum, plasma, or whole bOrdered By: Benji Florez on 03-06-2025 GFR/1.73 sq M.predicted among non-blacks MDRD (S/P/Bld) [Vol rate/Area] 93 mL/min/{1.73_m2} >60 [facility] Comment on above: mL/min/1.73m2 CKD-EP I Creatinine Equation (2020) L501.4021on 03-06-2025 Trop T High Sen 11 ng/L Normal <=22 [facility] Comment on above: Performed By: #### L 499.0043 #### [facility] [address] [facility] [place], [place], [id number] Laboratory - Chemistry and C hemistry - challengeOrdered By: Benji Florez on 03-06-2025 AST [Catalytic activity/Vol] 21 U/L <38 [facility] Partial Thromboplast Timeon 03-06-2025 aPTT Coag (Bld) [Time] 23.8 s Low 24.1-36.2 [facility] Comment on above: Performed By: #### L 300.4310 #### [facility] [address] [place], [place], [id number] aPTT Coag (Bld) [Time] 27.4 s Normal 24.1-36.2 [facility] Comment on above: Performed By: #### L 499.0042 #### [facility] [place], [address] Potassium measurement (mass/ volume)Ordered By: Benji Florez on 03-06-2025 Potassium (Unsp spec) [Mass/Vol] 3.8 mmol/L 3.3-5.1 [facility] Serum creatinine measurement (mass/volume)Ordered By: Benji Florez on 03-06-2025 Creatinine [Mass/Vol] 0.97 mg/dL 0.70-1.20 [facility] Serum globulin measurementOr dered By: Benji Florez on 03-06-2025 Globulin (S) [Mass/Vol] 3.1 g/dL 2.2-4.2 [facility] Serum glucose measurement (m ass/volume)Ordered By: Benji Florez on 03-06-2025 Glucose [Mass/Vol] 90 mg/dL 70-99 [facility] Serum or plasma alanine yang otransferase (ALT) measurementOrdered By: Benji Florez on 03-06-2025 ALT [Catalytic activity/Vol] 24 U/L <47 [facility] Serum or plasma albumin rigoberto urement (mass/volume)Ordered By: Benji Florez on 03-06-2025 Albumin [Mass/Vol] 3.8 g/dL 3.5-5.0 [facility] Serum or plasma albumin/glob ulin mass ratioOrdered By: Benji Florez on 03-06-2025 Albumin/Globulin [Mass ratio] 1.2 {ratio} 0.9-2.4 [facility] Serum or plasma alkaline thad sphatase measurementOrdered By: Benji Florez on 03-06-2025 ALP [Catalytic activity/Vol] 97 U/L 40-129 [facility] Serum or plasma calcium rigoberto urement (mass/volume)Ordered By: Benji Florez on 03-06-2025 Calcium [Mass/Vol] 9.1 mg/dL 7.6-11.0 [facility] Serum or plasma urea nitroge n measurement (mass/volume)Ordered By: Benji Florez on 03-06-2025 Urea nitrogen [Mass/Vol] 11 mg/dL 4-19 [facility] Sodium levelOrdered By: Hima Florez on 03-06-2025 Sodium [Moles/Vol] 139 mmol/L 133-145 [facility] Total proteinOrdered By: Anuj Florez on 03-06-2025 Protein [Mass/Vol] 6.9 g/dL 5.9-8.4 [facility] Troponin T.cardiac [Mass/vol ume] in Serum or Plasma by High sensitivity methodOrdered By: Haritha Hernandez on 03-06-2025 Troponin T.cardiac High sensitivity method [Mass/Vol] 11 ng/L <22 [facility] Comment on above: Delta: 41 on 5-1803 Basic Metabolic Profile (BMP )on 03-05-2025 BUN/CRE 12.6 RATIO Normal 10-20 [facility] Comment on above: Performed By: #### L 499.0042 #### [facility] [address] [place], [address] Calcium [Mass/Vol] 9.2 mg/dL Normal 7.6-11.0 [facility] Comment on above: Performed By: #### L 499.0042 #### [facility] [address] [place], [address] Chloride [Moles/Vol] 104 mmol/L Normal 98-108 [facility] Comment on above: Performed By: #### L 499.0042 #### [facility] [address] [place], [address] CO2 [Moles/Vol] 23.1 mmol/L Normal 21.0-32.0 [facility] Comment on above: Performed By: #### L 499.0042 #### [facility] [address] [place], [address] Creatinine [Mass/Vol] 1.00 mg/dL Normal 0.70-1.20 [facility] Comment on above: Performed By: #### L 499.0042 #### [facility] [address] [place], [address] ECRCL 142.99 ml/min Normal 50-250 [facility] Comment on above: Performed By: #### L 499.0042 #### [facility] [address] [place], [address] GAP 13 Normal 5-15 [facility] Comment on above: Performed By: #### L 499.0042 #### [facility] [address] [place], [address] GFR/1.73 sq M.predicted among non-blacks MDRD (S/P/Bld) [Vol rate/Area] 89 mL/min/{1.73_m2} Normal >60 [facility] Comment on above: Result Comment: mL/m in/1.73m2 CKD-EPI Creatinine Equation (2020) Performed By: #### L 499.0042 #### [facility] [address] [place], [address] Glucose [Mass/Vol] 101 mg/dL High 70-99 [facility] Comment on above: Performed By: #### L 499.0042 #### [facility] [address] [place], [address] Potassium [Moles/Vol] 4.3 mmol/L Normal 3.3-5.1 [facility] Comment on above: Performed By: #### L 499.0042 #### [facility] [address] [place], [address] Sodium [Moles/Vol] 139 mmol/L Normal 133-145 [facility] Comment on above: Performed By: #### L 499.0042 #### [facility] [address] [place], [address] Urea nitrogen [Mass/Vol] 13 mg/dL Normal 4-19 [facility] Comment on above: Performed By: #### L 499.0042 #### [facility] [address] [place], [address] CBC-Complete Blood Cnt No Di ffon 03-05-2025 Erythrocyte distribution width (RBC) [Ratio] 13.2 % Normal 11.6-14.6 [facility] Comment on above: Performed By: #### L 499.0042 #### [facility] [address] [place], [address] Hematocrit (Bld) [Volume fraction] 45.3 % Normal 40-54 [facility] Comment on above: Performed By: #### L 499.0042 #### [facility] [address] [place], [address] Hemoglobin (Bld) [Mass/Vol] 15.4 g/dL Normal 13.0-16.5 [facility] Comment on above: Performed By: #### L 499.0042 #### [facility] [address] [place], [address] MCH (RBC) [Entitic mass] 30.0 pg Normal 27.0-32.0 [facility] Comment on above: Performed By: #### L 499.0042 #### [facility] [address] [place], [address] MCHC (RBC) [Mass/Vol] 34.0 g/dL Normal 32-36 [facility] Comment on above: Performed By: #### L 499.0042 #### [facility] [address] [place], [address] MCV (RBC) [Entitic vol] 88.1 fL Normal 80-94 [facility] Comment on above: Performed By: #### L 499.0042 #### [facility] [address] [place], [address] Platelet mean volume (Bld) [Entitic vol] 10.0 fL Normal 6.2-12.0 [facility] Comment on above: Performed By: #### L 499.0042 #### [facility] [address] [place], [address] Platelets (Bld) [#/Vol] 325 10*3/uL Normal 150-450 [facility] Comment on above: Performed By: #### L 499.0042 #### [facility] [address] [place], [address] RBC (Bld) [#/Vol] 5.14 10*6/uL Normal 4.6-6.2 [facility] Comment on above: Performed By: #### L 499.0042 #### [facility] [address] [place], [address] RDW SD 42.7 fl Normal 35.1-43.9 [facility] Comment on above: Performed By: #### L 499.0042 #### [facility] [address] [place], [address] WBC (Bld) [#/Vol] 8.6 10*3/uL Normal 4.4-11.0 [facility] Comment on above: Performed By: #### L 499.0042 #### [facility] [address] [place], [address] Calculated very low density lipoprotein (VLDL) cholesterol measurementOrdered By: Hamilton Corral on 03-05-2025 Calculated very low density lipoprotein (VLDL) cholesterol measurement 69 mg/dL High 5-40 [facility] Consultation - Cardiologyon 03-05-2025 Consultation - Cardiology [facility] Medical Records Department [address] [place] [address] Consultation - Cardiology 03/05/25 1320 MR#: [id number] Acct: [id number] Name: ARGELIA COPELAND Rep #: [id number] : 1970 54 From: Haritha Hernandez MD PCP: Dr. Eric Odom MD Status:ADM IN [facility] Plan Assessment/Plan (1) History of percutaneous transluminal coronary angioplasty: (2) History of lateral wall myocardial infarction: (3) Tobacco use disorder: (4) HLD (hyperlipidemia): (5) Family history of ischemic heart disease: (6) Stented coronary artery: PLAN: 54-year-old patient with known history of CAD with prior PCI and stent in 2008 to the proximal ramus artery. He does not follow-up with cardiology and his presentation with having symptoms of back pain. Which is chronic lower back pain and felt dizzy lightheaded while he was in the shower. Evaluated here by EKG which showed normal sinus rhythm through the ED and admitted for further cardiac evaluation. Also noted he had mild elevation of high sensitive troponin Patient uses marijuana. And has a history of lumbar radiculopathy. Cardiac care plan; Based on his clinical presentation and not being seen and followed by vp integrity since 2008 with a prior history of proximal ramus stent Recommended to admit to the hospital and to start medical treatment with heparin and aspirin Patient also declined to take any statin as he had history of myalgia with the statin. I recommended to evaluate him further by echocardiogram as well we will assess by cardiac catheterization to assess patency of the stent and evaluate for progression of CAD. Will discuss further plan based on his result of cardiac evaluation which will include echocardiogram and the cardiac catheterization/righ t radial artery approach Haritha Hernandez MD,[facility] HPI Consult Data Date of Consult: 03/05/25 HPI Narrative Reason for Consultation: CAD/non-STEMI HPI Narrative: ARGELIA COPELAND, is a 54 M who presents [facility] Medical History (Updated 03/04/25 @ 16:[address] Anselmo Rios, DO) Wears glasses Cancer Arthritis History of Holter monitoring Normal stress echocardiogram History of stress test Hypertension Cardiology follow-up encounter Anxiety Umbilical hernia Essential hypertension Wears contact lenses Depression History of steroid therapy Chronic pain Shortness of breath on exertion Former smoker Edema Myocardial infarct Hx of echocardiogram Back pain right elbow surgery History of lateral wall myocardial infarction (07/22/09) Atherosclerotic heart disease of [place] coronary artery without angina pectoris HTN (hypertension) Morbid obesity with BMI of 40.0-44.9, adult Tobacco use disorder HLD (hyperlipidemia) Family history of ischemic heart disease Home Medications ???Medication ???Instructions ???Recorded ???Last Taken ???Type aspirin 325 mg tablet 325 mg PO DAILY@0800 11/09/18 06/ History metoprolol tartrate 25 mg tablet 25 mg PO BID 10/27/20 03/04/25 His tory multivitamin 1 tab PO DAILY 03/27/21 03/03/25 H istory glucosamine HCl 1,500 mg tablet 1,000 mg PO DAILY 08/17/21 5 History losartan 100 mg tablet 100 mg PO DAILY 11/17/21 03/04/25 History amlodipine 10 mg tablet (Norvasc) 10 mg PO DAILY 09/12/23 03/04/25 History duloxetine 30 mg capsule,delayed 30 mg PO DAILY 09/12/23 03/04/25 H istory release (Cymbalta) ashwagandha root extract 500 mg 1,300 mg PO DAILY 09/16/23 5 History capsule magnesium 200 mg tablet 400 mg PO DAILY 09/16/23 Unknown H istory coenzyme Q10 100 mg capsule (Co 300 mg PO DAILY 03/04/25 03/03/25 History Q-10) ibuprofen 200 mg tablet (Addaprin) 800 mg PO Q8H knee pain 03/04/25 03/04/25 History magnesium 250 mg tablet 1,000 mg PO DAILY 03/04/25 5 History Allergy/AdvReac Type Severity Reaction Status Date / Time bee venom protein (honey bee) Allergy Swelling Verified 03/04/25 13:35 atorvastatin AdvReac Severe Myalgias Verified 03/04/25 13:35 cephalexin (From Keflex) AdvReac GIVES ME Verified 03/04/25 13:35 [employer] shellfish derived AdvReac Nausea/Vom/ Verified 03/04/25 13:35 Diarrhea Family History Father , Age 57 of [place], had [place]/CAD at age 39 CAD (coronary artery disease) Myocardial infarction Mother Hypertension Sister Hypertension Surgical History (Updated 03/04/25 @ 17:20 by Ingris Browning) History of coronary artery stent placement S/P umbilical hernia repair, follow-up exam Hx of surgical procedure History of surgery on arm History of dental surgery Stented coronary artery (07/22/09) Social History (Reviewed 03/04/25 @ 14:24 by SHERRY Marti household members: other details: mother housing: (more content not included)... Normal [facility] Echocardiogram study reportO rdered By: Haritha Hernandez on 03-05-2025 Study report [facility] [place] [address] Echo Complete W/ Contrast 03/05/25 1113 MR#: [id number] Acct: [id number] Name: ARGELIA COPELAND Rep #:[id number] : 1970 54 From: Haritha Hernandez MD Attending Dr: Dr. Sam Cuellar MD Status: ADM IN Ordering Dr: Hamilton Corral te: 03/04/25 Location: [facility] Sex: M C Admitted: 03/04/25 Reason For Study Reason For Study: Chest Pain Procedure This was a 2D Doppler, Color Flow transthoracic echocardiogram. The study was technically difficult. Contrast injection was performed. Exam performed portable in patient room. Left Ventricle Normal left ventricle. The estimated ejection fraction is 55???60 %. Right Ventricle Normal right ventricle. Normal systolic function. Atria The left atrium is mildly enlarged. Normal left atrium. Normal right atrium. Mitral Valve The mitral valve is structurally normal. No prolapse or stenosis seen. Tricuspid Valve Normal tricuspid valve. Aortic Valve Trisinus/trileaflet aortic valve. Pulmonic Valve The pulmonic valve is not well visualized. Great Vessels The aortic root is not well visualized. Pericardium/Pleural No pericardial effusion. Medication Diluted definity 3.5ml given slow IV push to enhance endocardial definition. MMode/2D Measurements & Calculations LVIDd: 4.4 cm IVSd: 1.6 cm Ao root diam: 3.9 cm LVIDs: 2.8 cm LVPWd: 1.1 cm RVDd: 4.3 cm FS: 35.1 % LAV(MOD-bp): 69.0 ml LVAd ap4: 43.1 cm2 SV(MOD-sp4): 84.9 ml LAV(MOD-bp) Indexed: 23.7 ml/m2 LVLd ap4: 9.9 cm SI(MOD-sp4): 29.2 ml/m2 LAV(MOD-sp2): 78.6 ml EDV(MOD-sp4): 150.1 ml LAV(MOD-sp4): 58.1 ml EDV(sp4-el): 159.4 ml LVAs ap4: 25.3 cm2 LVLs ap4: 8.0 cm ESV(MOD-sp4): 65.2 ml ESV(sp4-el): 68.3 ml EF(MOD-sp4): 56.6 % EF(sp4-el): 57.1 % SV(sp4-el): 91.1 ml LA A4 area: 20.9 cm2 LA dimension(2D): 4.4 cm RA A4 area: 17.9 cm2 TAPSE: 2.6 cm Time Measurements MV dec time: 0.28 sec Doppler Measurements & Calculations MV E max shira: 68.8 cm/sec Lat Peak E' Shira: 13.6 cm/sec Med Peak E' Shira: 11.0 cm/sec MV A max shira: 90.5 cm/sec E/E' lat: 5.1 E/E' med: 6.3 MV E/A: 0.76 MV V2 max: 89.3 cm/sec MV P1/2t max shira: 90.3 cm/sec Ao V2 max: 136.8 cm/sec MV max P.2 mmHg MV P1/2t: 93.7 msec Ao max P.5 mmHg MV V2 mean: 48.1 cm/sec MV dec slope: 282.0 cm/sec2 Ao V2 mean: 96.5 cm/sec MV mean P.1 mmHg MVA(P1/2t): 2.3 cm2 Ao mean P.3 mmHg MV V2 VTI: 25.2 cm Ao V2 VTI: 31.6 cm AV (velocity ratio): 0.75 LV V1 max: 102.5 cm/sec PA V2 max: 103.2 cm/sec LV V1 max P.2 mmHg LV V1 mean P.7 mmHg LV V1 mean: 78.5 cm/sec LV V1 VTI: 23.7 cm ECHO/Echo Complete W/ Contrast Interpretation Summary The estimated ejection fraction is 55???60 %. Normal LV systolic function No significant change from previous echocardiogram Contrast echo/Definity used Ordering Physician: Hamilton Corral Referring Physician: Hamilton Corral Performed By: Wero Knutson RCS 03/05/25 1621 Date _ Haritha Hernandez MD CC: Dr. Hamilton Corral DO; Dr. Eric Odom MD; Dr. Sam Cuellar MD ~ Date Dictated: 03/05/25 1113 Date Transcribed: 03/05/25 162 [place]: Signed [facility] Work Phone: Electrocardiogram reportOrde red By: Christiano Hatfield on 03-05-2025 EKG study [facility] Cardiovascular Services [address] [place] [address] 12 Lead EKG 03/04/25 1332 MR#: [id number] Acct: [id number] Name: ARGELIA COPELAND Rep #:[id number] : 1970 54 From: Christiano Hatfeild MD Attending Dr: Dr. Sam Cuellar MD Status: ADM IN Ordering Dr: Anselmo Rios DO Date: Location: [facility] Sex: M C Admitted: 03/04/25 Test Reason : CP Blood Pressure : */* mmHG Vent. Rate : 87 BPM Atrial Rate : 87 BPM P-R Int : 172 ms QRS Dur : 96 ms QT Int : 372 ms P-R-T Axes : 37 63 35 degrees QTcB Int : 447 ms Normal sinus rhythm Normal ECG Confirmed by CHRISTIANO HATFIELD MD ([id number]), non linear editor PEPPER HARGROVE ([id number]) on 03/05/2025 1:31:48 PM Referred By: Hamilton Corral Confirmed By: CHRISTIANO HATFIELD MD 03/05/25 1331 Date _ Christiano Hatfield MD CC: Dr. Hamilton Corral DO; Dr. Eric Odom MD; Dr. Sam Cuellar MD; Dr. Anselmo Rios DO ~ Signed [facility] Other Erythrocyte distribution wid th ratioOrdered By: Hamilton Corral on 03-05-2025 Erythrocyte distribution width (RBC) [Ratio] 13.2 % 11.6-14.6 [facility] Erythrocyte distribution wid th standard deviationOrdered By: Hamilton Corral on 03-05-2025 Erythrocyte distribution width (RBC) [Ratio] 42.7 fl 35.1-43.9 [facility] Hematocrit Auto (Bld) [Volum e fraction]Ordered By: Hamilton Corral on 03-05-2025 Hematocrit (Bld) [Volume fraction] 45.3 % 40-54 [facility] Hemoglobin measurementOrdere d By: Hamilton Corral on 03-05-2025 Hemoglobin (Bld) [Mass/Vol] 15.4 g/dL 13.0-16.5 [facility] LDL calc ser/plasOrdered By: Hamilton Corral on 03-05-2025 Cholesterol in LDL [Mass/Vol] 122 mg/dL [facility] Comment on above: Btwvixrrlh=976-989 m g/dL & Higher Axpr=338 mg/dL or greater Lipid Profileon 03-05-2025 CHOL:HDL 6.16 Normal [facility] Comment on above: Performed By: #### L 499.0042 #### [facility] [address] [place], [place], [id number] Cholesterol [Mass/Vol] 228 mg/dL High <=200 [facility] Comment on above: Result Comment: Chol esterol level, Desirable <200 mg/dL Borderline high cholesterol 200-239 mg/dL High cholesterol >=240 mg/dL Recommendations of the NCEP Adult Treatment Panel for the following risk-cutoff thresholds for the [place] population. Performed By: #### L 499.0042 #### [facility] [address] [place], [place], [id number] [phone] Cholesterol in HDL [Mass/Vol] 37 mg/dL Low [facility] Comment on above: Result Comment: Leanna onal Cholesterol Education Program (NCEP) guidelines: <40 mg/dL: Low HDL-cholesterol (major risk factor for CHD) >= 60 mg/dL: High HDL-cholesterol (negative risk factor for CHD) HDL-cholesterol is affected by a number of factors, e.g. smoking, exercise, hormones, sex and age. Performed By: #### L 499.0042 #### [facility] [address] [place], [place], [id number] ([address] Cholesterol in LDL [Mass/Vol] 122 mg/dL Normal [facility] Comment on above: Result Comment: Bord zuvfgh=613-703 mg/dL Higher Lihi=582 mg/dL or greater Performed By: #### L 499.0042 #### [facility] [address] [place], [address] Cholesterol in VLDL [Mass/Vol] 69 mg/dL High 5-40 [facility] Comment on above: Performed By: #### L 499.0042 #### [facility] [address] [place], [place], [id number] ([address] Triglyceride [Mass/Vol] 345 mg/dL High [facility] Comment on above: Result Comment: The drugs N-Acetylcysteine and Metamizole may falsely depress this assay. Normal range: <150 mg/dL Borderline High: 150-199 mg/dL High: 200-499 mg/dL Very High: >500 mg/dL Performed By: #### L 499.0042 #### [facility] [address] [place], [place], [id number] ([phone] MCV (mean corpuscular volume ) determinationOrdered By: Hamilton Corral on 03-05-2025 MCV (RBC) [Entitic vol] 88.1 fL 80-94 [facility] Mean corpuscular hemoglobin (MCH) determinationOrdered By: Hamilton Corral on 03-05-2025 MCH (RBC) [Entitic mass] 30.0 pg 27.0-32.0 [facility] Mean corpuscular hemoglobin concentration (MCHC) determinationOrdered By: Hamilton Corral on 03-05-2025 MCHC (RBC) [Mass/Vol] 34.0 g/dL 32-36 [facility] Mean platelet volume determi nationOrdered By: Hamilton Corral on 03-05-2025 Platelet mean volume (Bld) [Entitic vol] 10.0 fL 6.2-12.0 [facility] Partial Thromboplast Timeon 03-05-2025 aPTT Coag (Bld) [Time] 28.1 s Normal 24.1-36.2 [facility] Comment on above: Performed By: #### L 300.4310 #### [facility] [address] [place], [address] aPTT Coag (Bld) [Time] 25.2 s Normal 24.1-36.2 [facility] Comment on above: Performed By: #### L 300.4310 #### [facility] [address] [place], [address] aPTT Coag (Bld) [Time] 25.8 s Normal 24.1-36.2 [facility] Comment on above: Order Comment: Comme nts: heparin drip Performed By: #### L 300.4310 #### [facility] [address] [place], [address] Platelet countOrdered By: Sreekanth Corral on 03-05-2025 Platelets (Bld) [#/Vol] 325 10*3/uL 150-450 [facility] RBC Auto (Bld) [#/Vol]Ordere d By: Hamilton Corral on 03-05-2025 RBC (Bld) [#/Vol] 5.14 10*6/uL 4.6-6.2 [facility] Screening total cholesterol/ high density lipoprotein (HDL) cholesterol ratioOrdered By: Hamilton Corral on 03-05-2025 Cholesterol.total/Lenore sterol in HDL [Mass ratio] 6.16 {ratio} [facility] Serum or plasma cholesterol in HDL measurement (mass/volume)Ordered By: Hamilton Corral on 03-05-2025 Cholesterol in HDL [Mass/Vol] 37 mg/dL Low >40 [facility] Comment on above: National Cholesterol Education Program (NCEP) guidelines:<40 mg/dL: Low HDL-cholesterol (major risk factor for CHD)>= 60 mg/dL: High HDL-cholesterol (negative risk factor for CHD)HDL-cholesterol is affected by a number of factors, e.g. smoking, exercise, hormones, sex and age. Serum or plasma cholesterol measurement (mass/volume)Ordered By: Hamilton Corral on 03-05-2025 Cholesterol [Mass/Vol] 228 mg/dL High <201 [facility] Comment on above: Cholesterol level, D esirable <200 mg/dLBorderline high cholesterol 200-239 mg/dLHigh cholesterol >=240 mg/dLRecommendations of the NCEP Adult Treatment Panel for the following risk-cutoff thresholds for the [place] population. Triglycerides measurementOrd ered By: Hamilton Corral on 03-05-2025 Triglyceride [Mass/Vol] 345 mg/dL High <199 [facility] Comment on above: The drugs N-Acetylcy steine and Metamizole may falsely depress this assay. Normal range: <150 mg/dLBorderline High: 150-199 mg/dLHigh: 200-499 mg/dLVery High: >500 mg/dL White blood cell (WBC) count Ordered By: Hamilton Corral on 03-05-2025 WBC (Bld) [#/Vol] 8.6 10*3/uL 4.4-11.0 [facility] 12 Lead EKGon 03-04-2025 12 Lead EKG [facility] Cardiovascular Services [address] [place] [address] 12 Lead EKG 03/04/25 1332 MR#: [id number] Acct: [id number] Name: ARGELIA COPELAND Rep #: [id number] : 1970 54 From: Christiano Hatfield MD Attending Dr: Dr. Sam Cuellar MD Status: ADM IN Ordering Dr: Anselmo Rios DO Date: 03/04/25 Location: U Sex: M C Admitted: 03/04/25 Test Reason : CP Blood Pressure : */* mmHG Vent. Rate : 87 BPM Atrial Rate : 87 BPM P-R Int : 172 ms QRS Dur : 96 ms QT Int : 372 ms P-R-T Axes : 37 63 35 degrees QTcB Int : 447 ms Normal sinus rhythm Normal ECG Confirmed by MAURI WOODALL, CHRISTIANO ([id number]), non linear editor PEPPER HARGROVE ([id number]) on 03/05/2025 1:31:48 PM Referred By: Hamilton Corral Confirmed By: CHRISTIANO HATFIELD MD 03/05/25 1331 Date Christiano Hatfield MD CC: Dr. Hamilton Corral DO; Dr. Eric Odom MD; Dr. Sam Cuellar MD; Dr. Anselmo Rios DO Signed Normal [facility] Absolute lymphocyte countOrd ered By: Anselmo Rios on 03-04-2025 Lymphocytes Auto (Unsp spec) [#/Vol] 1.63 10*3/uL 0.83-4.51 [facility] Absolute neutrophil countOrd ered By: Anselmo Rios on 03-04-2025 Neutrophils (Bld) [#/Vol] 5.0 10*3/uL 2.0-7.7 [facility] Activated partial thrombopla stin time (aPTT) in platelet poor plasma by coagulation aOrdered By: Anselmo Rios on 03-04-2025 aPTT Coag (PPP) [Time] 23.0 s Low 24.1-36.2 [facility] Anion gap in Serum or Plasma Ordered By: Anselmo Rios on 03-04-2025 Anion gap [Moles/Vol] 11 mmol/L 5-15 [facility] Automated lymphocyte count a s percentage of total leukocytesOrdered By: Anselmo Rios on 03-04-2025 Lymphocytes/100 WBC Auto (Unsp spec) 22.4 % 19-41 [facility] BUN/creatinine ratioOrdered By: Anselmo Rios on 03-04-2025 Urea nitrogen/Creatinine [Mass ratio] 11.3 mg/mg 10-20 [facility] Basic Metabolic Profile (BMP )on 03-04-2025 BUN/CRE 11.3 RATIO Normal 10-20 [facility] Comment on above: Order Comment: REDRA W Performed By: #### L 499.0043 #### [facility] [address] [place], [address] Calcium [Mass/Vol] 8.4 mg/dL Normal 7.6-11.0 [facility] Comment on above: Order Comment: REDRA W Performed By: #### L 499.0043 #### [facility] [address] [place], [address] Chloride [Moles/Vol] 102 mmol/L Normal 98-108 [facility] Comment on above: Order Comment: REDRA W Performed By: #### L 499.0043 #### [facility] [address] [place], [address] CO2 [Moles/Vol] 22.5 mmol/L Normal 21.0-32.0 [facility] Comment on above: Order Comment: REDRA W Performed By: #### L 499.0043 #### [facility] [address] [place], [address] Creatinine [Mass/Vol] 0.95 mg/dL Normal 0.70-1.20 [facility] Comment on above: Order Comment: REDRA W Performed By: #### L 499.0043 #### [facility] [address] [place], [address] ECRCL 151.76 ml/min Normal 50-250 [facility] Comment on above: Order Comment: REDRA W Performed By: #### L 499.0043 #### [facility] [address] [place], [address] GAP 11 Normal 5-15 [facility] Comment on above: Order Comment: REDRA W Performed By: #### L 499.0043 #### [facility] [address] [place], [address] GFR/1.73 sq M.predicted among non-blacks MDRD (S/P/Bld) [Vol rate/Area] 95 mL/min/{1.73_m2} Normal >60 [facility] Comment on above: Order Comment: REDRA W Result Comment: mL/m in/1.73m2 CKD-EPI Creatinine Equation (2020) Performed By: #### L 499.0043 #### [facility] [address] [place], [address] Glucose [Mass/Vol] 98 mg/dL Normal 70-99 [facility] Comment on above: Order Comment: REDRA W Performed By: #### L 499.0043 #### [facility] [address] [place], [address] Potassium [Moles/Vol] 4.0 mmol/L Normal 3.3-5.1 [facility] Comment on above: Order Comment: REDRA W Performed By: #### L 499.0043 #### [facility] [address] [place], [address] Sodium [Moles/Vol] 136 mmol/L Normal 133-145 [facility] Comment on above: Order Comment: REDRA W Performed By: #### L 499.0043 #### [facility] [address] [place], [address] Urea nitrogen [Mass/Vol] 11 mg/dL Normal 4-19 [facility] Comment on above: Order Comment: REDRA W Performed By: #### L 499.0043 #### [facility] [address] [place], [address] BUN Normal 4-19 [facility] Comment on above: Result Comment: This specimen has been REJECTED due to Laboratory criteria: Hemolyzed. ADITI has been notified of need of recollection. 03/04/25 Julio Cesar Calvo Performed By: #### L 499.0043 #### [facility] [address] [facility] [address] BUN/CRE Normal 10-20 [facility] Comment on above: Result Comment: This specimen has been REJECTED due to Laboratory criteria: Hemolyzed. ADITI has been notified of need of recollection. 03/04/25 1518 Susan Calvo Performed By: #### L 499.0043 #### [facility] [address] [facility] [address] Calcium Normal 7.6-11.0 [facility] Comment on above: Result Comment: This specimen has been REJECTED due to Laboratory criteria: Hemolyzed. ADITI has been notified of need of recollection. 03/04/25 1518 Susan Calvo Performed By: #### L 499.0043 #### [facility] [address] [facility] [address] CL Normal 98-108 [facility] Comment on above: Result Comment: This specimen has been REJECTED due to Laboratory criteria: Hemolyzed. ADITI has been notified of need of recollection. 03/04/25 1518 Susan Calvo Performed By: #### L 499.0043 #### [facility] [address] [facility] [address] CO2 Normal 21.0-32.0 [facility] Comment on above: Result Comment: This specimen has been REJECTED due to Laboratory criteria: Hemolyzed. ADITI has been notified of need of recollection. 03/04/25 1518 Susan Calvo Performed By: #### L 499.0043 #### [facility] [address] [facility] [address] CREAT,SERUM Normal 0.70-1.20 [facility] Comment on above: Result Comment: This specimen has been REJECTED due to Laboratory criteria: Hemolyzed. ADITI has been notified of need of recollection. 03/04/25 1518 Susan Calvo Performed By: #### L 499.0043 #### [facility] [address] [place], [address] eGFR Normal >60 [facility] Comment on above: Result Comment: This specimen has been REJECTED due to Laboratory criteria: Hemolyzed. ADITI has been notified of need of recollection. 03/04/25 1518 Susan Calvo Performed By: #### L 499.0043 #### [facility] [address] [facility] [address] GAP Normal 5-15 [facility] Comment on above: Result Comment: This specimen has been REJECTED due to Laboratory criteria: Hemolyzed. ADITI has been notified of need of recollection. 03/04/25 1518 Susan Calvo Performed By: #### L 499.0043 #### [facility] [address] [place], [address] GLU Normal 70-99 [facility] Comment on above: Result Comment: This specimen has been REJECTED due to Laboratory criteria: Hemolyzed. LORJENNIFERE has been notified of need of recollection. 03/04/25 1518 Susan Calvo Performed By: #### L 499.0043 #### [facility] [address] [facility] [address] Potassium Normal 3.3-5.1 [facility] Comment on above: Result Comment: This specimen has been REJECTED due to Laboratory criteria: Hemolyzed. ADITI has been notified of need of recollection. 03/04/25 1518 Susan Calvo Performed By: #### L 499.0043 #### [facility] [address] [place], [address] Basic Metabolic Profile (BMP) Normal 133-145 [facility] Comment on above: Result Comment: This specimen has been REJECTED due to Laboratory criteria: Hemolyzed. ADITI has been notified of need of recollection. 03/04/25 1518 Susan Calvo Performed By: #### L 499.0043 #### [facility] [address] [place], [address] Basic metabolic panel with i onized calcium measurementon 03-04-2025 Basic metabolic 2008 panel with ionized calcium [facility] Basophil percentageOrdered B y: Anselmo Rios on 03-04-2025 Basophils/100 WBC (Bld) 1.1 % High 0-1 [facility] CBC W/Diff, Automatedon 02-05 Absolute Lymph 1.63 X10 3/uL Normal 0.83-4.51 [facility] Comment on above: Performed By: #### L 499.0043 #### [facility] [address] [place], [address] Absolute Neut 5.0 X10 3/uL Normal 2.0-7.7 [facility] Comment on above: Performed By: #### L 499.0043 #### [facility] [address] [place], [address] Basophils/100 WBC (Bld) 1.1 % High 0-1 [facility] Comment on above: Performed By: #### L 499.0043 #### [facility] [address] [place], [address] Eosinophils/100 WBC (Bld) 1.4 % Normal 0-5 [facility] Comment on above: Performed By: #### L 499.0043 #### [facility] [address] [place], [address] Erythrocyte distribution width (RBC) [Ratio] 13.2 % Normal 11.6-14.6 [facility] Comment on above: Performed By: #### L 499.0043 #### [facility] [address] [place], [address] Hematocrit (Bld) [Volume fraction] 45.7 % Normal 40-54 [facility] Comment on above: Performed By: #### L 499.0043 #### [facility] [address] [place], [address] Hemoglobin (Bld) [Mass/Vol] 16.1 g/dL Normal 13.0-16.5 [facility] Comment on above: Performed By: #### L 499.0043 #### [facility] [address] [place], [address] IG% 0.600 Normal 0.0-0.9 [facility] Comment on above: Result Comment: IG% - Immature Granulocytes (promyelocytes, myelocytes and metamyelocytes) > 1% indicates that a LEFT SHIFT is Present. Performed By: #### L 499.0043 #### [facility] [address] [place], [address] Lymphocytes/100 WBC (Bld) 22.4 % Normal 19-41 [facility] Comment on above: Performed By: #### L 499.0043 #### [facility] [address] [place], [address] MCH (RBC) [Entitic mass] 30.4 pg Normal 27.0-32.0 [facility] Comment on above: Performed By: #### L 499.0043 #### [facility] [address] [place], [address] MCHC (RBC) [Mass/Vol] 35.2 g/dL Normal 32-36 [facility] Comment on above: Performed By: #### L 499.0043 #### [facility] [address] [place], [address] MCV (RBC) [Entitic vol] 86.2 fL Normal 80-94 [facility] Comment on above: Performed By: #### L 499.0043 #### [facility] [address] [place], [address] Monocytes/100 WBC (Bld) 5.5 % Normal 0-10 [facility] Comment on above: Performed By: #### L 499.0043 #### [facility] [address] [place], [address] Neutrophils/100 WBC (Bld) 69.0 % Normal 47-70 [facility] Comment on above: Performed By: #### L 499.0043 #### [facility] [address] [place], [address] Nucleated RBC (Bld) [#/Vol] 0 10*3/uL Normal 0-5 [facility] Comment on above: Performed By: #### L 499.0043 #### [facility] [address] [place], [address] Platelet mean volume (Bld) [Entitic vol] 10.5 fL Normal 6.2-12.0 [facility] Comment on above: Performed By: #### L 499.0043 #### [facility] [address] [place], [address] Platelets (Bld) [#/Vol] 322 10*3/uL Normal 150-450 [facility] Comment on above: Performed By: #### L 499.0043 #### [facility] [address] [place], [address] RBC (Bld) [#/Vol] 5.30 10*6/uL Normal 4.6-6.2 [facility] Comment on above: Performed By: #### L 499.0043 #### [facility] [address] [place], [address] RDW SD 41.0 fl Normal 35.1-43.9 [facility] Comment on above: Performed By: #### L 499.0043 #### [facility] [address] [place], [address] WBC (Bld) [#/Vol] 7.3 10*3/uL Normal 4.4-11.0 [facility] Comment on above: Performed By: #### L 499.0043 #### [facility] [address] [place], [place], [address] CTA Chest W/WO Contraston CTA Chest W/WO Contrast [facility] Imaging Services [address] [place] [address] CTA Chest W/WO Contrast MR#: [id number] Acct: [id number] Name: ARGELIA COPELAND Rep #: [id number] : 1970 M 54 From: Cleo Merritt PCP: Dr. Eric Odom MD Status: REG ER Study: CTA Chest W/WO Contrast Date of Exam: 03/04/25 Exam# [id number] Ordering Dr: Anselmo Rios DO PROCEDURE: CTA CHEST W/WO CONTRAST [...] pulmonary emboli. No focal consolidations. Reading Location: [facility]PS[facility] CC: Dr. Eric Odom MD; Dr. Anselmo Rios DO [place]: Signed Normal [facility] Carbon dioxide, total [Moles /volume] in Central venous bloodOrdered By: Anselmo Rios on 03-04-2025 CO2 [Moles/Vol] 22.5 mmol/L 21.0-32.0 [facility] Chest PA and Lateralon 03-04 Chest PA and Lateral [facility] Imaging Services [address] [place], [place] [address] Chest PA and Lateral MR#: [id number] Acct: [id number] Name: ARGELIA COPELAND Rep #: [id number] : 1970 M 54 From: Benji Merritt PCP: Dr. Eric Odom MD Status: PRE ER Study: Chest PA and Lateral Date of Exam: 03/04/25 Exam# [id number] Ordering Dr: Anselmo Rios DO PROCEDURE: CHEST PA AND LATERAL [...] acute osseous process is seen. Reading Location: [place] [address] CC: Dr. Eric Odom MD; Dr. Anselmo Rios DO [place]: Signed Normal [facility] Chloride assayOrdered By: Andre Rios on 03-04-2025 Chloride [Moles/Vol] 102 mmol/L 98-108 [facility] D-Dimer Quantitative (DVT/PE )on 03-04-2025 D-DIMER QUANT 0.59 FEU/ug/m Invalid Interpretation Code 0.27-0.49 [facility] Comment on above: Result Comment: D-Di bautista ELEVATED (>0.49): Additional studies and clinical assessments are indicated to conclude diagnosis of: Deep Vein Thrombosis (DVT) or Pulmonary Embolism (PE) CRITICAL VALUE CALLED TO DEV RICHARDSON 03/04/25 1457 Nyla Mireles. RESULTS READ BACK BY SAME. Performed By: #### L 300.8000 #### [facility] [address] [place], [address] Echo Complete W/ Contraston 03-04-2025 Echo Complete W/ Contrast [facility] Cardiovascular Services [address] [place] [address] Echo Complete W/ Contrast 03/05/25 1113 MR#: [id number] Acct: [id number] Name: ARGELIA COPELAND Rep #: [id number] : 1970 54 From: Haritha Hernandez MD Attending Dr: Dr. Sam Cuellar MD Status: ADM IN Ordering Dr: Hamilton Corral DO Date: 03/04/25 Location: U Sex: M C Admitted: 03/04/25 Reason For Study Reason For Study: Chest Pain Procedure This was a 2D Doppler, Color Flow transthoracic echocardiogram. The study was technically difficult. Contrast injection was performed. Exam performed portable in patient room. Left Ventricle Normal left ventricle. The estimated ejection fraction is 55???60 %. Right Ventricle Normal right ventricle. Normal systolic function. Atria The left atrium is mildly enlarged. Normal left atrium. Normal right atrium. Mitral Valve The mitral valve is structurally normal. No prolapse or stenosis seen. Tricuspid Valve Normal tricuspid valve. Aortic Valve Trisinus/trileaflet aortic valve. Pulmonic Valve The pulmonic valve is not well visualized. Great Vessels The aortic root is not well visualized. Pericardium/Pleural No pericardial effusion. Medication Diluted definity 3.5ml given slow IV push to enhance endocardial definition. MMode/2D Measurements Calculations LVIDd: 4.4 cm IVSd: 1.6 cm Ao root diam: 3.9 cm LVIDs: 2.8 cm LVPWd: 1.1 cm RVDd: 4.3 cm FS: 35.1 % LAV(MOD-bp): 69.0 ml LVAd ap4: 43.1 cm2 SV(MOD-sp4): 84.9 ml LAV(MOD-bp) Indexed: 23.7 ml/m2 LVLd ap4: 9.9 cm SI(MOD-sp4): 29.2 ml/m2 LAV(MOD-sp2): 78.6 ml EDV(MOD-sp4): 150.1 ml LAV(MOD-sp4): 58.1 ml EDV(sp4-el): 159.4 ml LVAs ap4: 25.3 cm2 LVLs ap4: 8.0 cm ESV(MOD-sp4): 65.2 ml ESV(sp4-el): 68.3 ml EF(MOD-sp4): 56.6 % EF(sp4-el): 57.1 % SV(sp4-el): 91.1 ml LA A4 area: 20.9 cm2 LA dimension(2D): 4.4 cm RA A4 area: 17.9 cm2 TAPSE: 2.6 cm Time Measurements MV dec time: 0.28 sec Doppler Measurements Calculations MV E max shira: 68.8 cm/sec Lat Peak E' Shira: 13.6 cm/sec Med Peak E' Shira: 11.0 cm/sec MV A max shira: 90.5 cm/sec E/E' lat: 5.1 E/E' med: 6.3 MV E/A: 0.76 MV V2 max: 89.3 cm/sec MV P1/2t max shira: 90.3 cm/sec Ao V2 max: 136.8 cm/sec MV max P.2 mmHg MV P1/2t: 93.7 msec Ao max P.5 mmHg MV V2 mean: 48.1 cm/sec MV dec slope: 282.0 cm/sec2 Ao V2 mean: 96.5 cm/sec MV mean P.1 mmHg MVA(P1/2t): 2.3 cm2 Ao mean P.3 mmHg MV V2 VTI: 25.2 cm Ao V2 VTI: 31.6 cm AV (velocity ratio): 0.75 LV V1 max: 102.5 cm/sec PA V2 max: 103.2 cm/sec LV V1 max P.2 mmHg LV V1 mean P.7 mmHg LV V1 mean: 78.5 cm/sec LV V1 VTI: 23.7 cm ECHO/Echo Complete W/ Contrast Interpretation Summary The estimated ejection fraction is 55???60 %. Normal LV systolic function No significant change from previous echocardiogram Contrast echo/Definity used Ordering Physician: Hamilton Corral Referring Physician: Hamilton Corral Performed By: Wero Knutson RCS 03/05/25 1621 Date Haritha Hernandez MD CC: Dr. Hamilton Corral DO; Dr. Eric Odom MD; Dr. Sam Cuellar MD Date Dictated: 03/05/25 1113 Date Transcribed: 03/05/25 162 [place]: Signed Normal [facility] Emergency Department Summary on 03-04-2025 Emergency Department Summary [facility] Medical Records Department [address] [place] [address] Emergency Department Summary 03/04/25 MR#: [id number] Acct: [id number] Name: ARGELIA COPELAND Rep #: [id number] : 1970 54 From: Anselmo Rios DO PCP: Dr. Eric Odom MD Status:[facility] ER Location: ED HPI History of Present [...] use but denies any IV drug use. [facility] Medical History Wears glasses Cancer Arthritis History [...] myocardial infarction (07/22/09) Atherosclerotic heart disease of [place] coronary artery without angina pectoris HTN (hypertension) Morbid obesity with BMI of 40.0-44.9, adult Tobacco use disorder HLD (hyperlipidemia) Family history of ischemic heart disease Home Medications ???Medication ???Instructions ???Recorded ???Last Taken ???Type aspirin 325 mg tablet 325 mg PO DAILY@0800 11/09/1802/05 History metoprolol tartrate 25 mg tablet 25 mg PO BID 10/27/20 03/04/25 His tory multivitamin 1 tab PO DAILY 03/27/21 03/03/25 H istory glucosamine HCl 1,500 mg tablet 1,000 mg PO DAILY 08/17/21 5 History losartan 100 mg tablet 100 mg PO DAILY 11/17/21 03/04/25 History amlodipine 10 mg tablet (Norvasc) 10 mg PO DAILY 09/12/23 03/04/25 History duloxetine 30 mg capsule,delayed 30 mg PO DAILY 09/12/23 03/04/25 H istory release (Cymbalta) ashwagandha root extract 500 mg 1,300 mg PO DAILY 09/16/23 5 History capsule magnesium 200 mg tablet 400 mg PO DAILY 09/16/23 Unknown H istory coenzyme Q10 100 mg capsule (Co 300 mg PO DAILY 03/04/25 03/03/25 History Q-10) ibuprofen 200 mg tablet (Addaprin) 800 mg PO Q8H knee pain 03/04/25 03/04/25 History magnesium 250 mg tablet 1,000 mg PO DAILY 06/30/25 06/30/2 5 History Allergy/AdvReac Type Severity Reaction Status Date / Time bee venom protein (honey bee) Allergy Swelling Verified 03/04/25 13:35 atorvastatin AdvReac Severe Myalgias Verified 03/04/25 13:35 cephalexin (From Keflex) AdvReac GIVES ME Verified 03/04/25 13:35 [employer] shellfish derived AdvReac Nausea/Vom/ Verified 03/04/25 13:35 Diarrhea Family History Father , Age 57 of [place], had [place]/CAD at age 39 CAD (coronary artery disease) Myocardial infarction Mother Hypertension Sister Hypertension Surgical History S/P umbilical hernia repair, follow-up exam Hx of surgical procedure History of surgery on arm History of dental surgery Stented coronary artery (07/22/09) Social History household members: other details: mother housing: house current occupational status: employed 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 Normal [facility] Eosinophil percentageOrdered By: Anselmo Rios on 03-04-2025 Eosinophils/100 WBC (Bld) 1.4 % 0-5 [facility] Erythrocyte distribution wid th ratioOrdered By: Anselmo Rios on 03-04-2025 Erythrocyte distribution width (RBC) [Ratio] 13.2 % 11.6-14.6 [facility] Erythrocyte distribution wid th standard deviationOrdered By: Anselmo Rios on 03-04-2025 Erythrocyte distribution width (RBC) [Ratio] 41.0 fl 35.1-43.9 [facility] Glomerular filtration rate ( GFR) estimation/1.73 sq m using serum, plasma, or whole bOrdered By: Anselmo Rios on 03-04-2025 GFR/1.73 sq M.predicted among non-blacks MDRD (S/P/Bld) [Vol rate/Area] 95 mL/min/{1.73_m2} >60 [facility] Comment on above: mL/min/1.73m2 CKD-EP I Creatinine Equation (2020) H AND P Exam - [facility] 03-04-2025 H&P Exam - Hospitalist [facility] Medical Records Department [address] [place] [address] H P Exam - Hospitalist 03/04/25 1628 MR#: [id number] Acct: [id number] Name: ARGELIA COPELAND Rep #: [id number] : 1970 54 From: Hamilton Corral DO PCP: Dr. Eric Odom MD Status:ADM IN Location: [facility] [id number] HPI - General General Date of Admission: 03/04/25 Date of Service: 03/04/25 Chief Complaint: Chest pain HPI Narrative ARGELIA COPELAND, is a 54 M who presented to [facility] ED on 03/04/2025 with chest pain. Patient has history of CAD with stenting back and 2008. Had stent x 1 placed at that time. He notably was only 38 years old then. Patient reports no further cardiac issues since then but importantly he does not have a regular doctor or medical insurance so he has not had medical follow- up in several years. States that he had chest discomfort now starting 4 to 5 days ago that worsened significantly over the past day or so. The chest pain radiates to in between his shoulder blades. He notes that it is similar to the pain he had back in 2008. In the ED today he was hemodynamically stable on room air at rest. CBC and BMP were benign. D-dimer was mildly elevated so CTA chest was obtained which showed no acute PE and no focal consolidations, although it notably did call extensive coronary atherosclerosis. EKG showed normal sinus rhythm with no ischemic changes. However, initial troponin was elevated at 34. Patient was given nitro and did report improvement with his chest pain. Case was discussed with cardiology who recommended starting a heparin drip and admission for suspected NSTEMI type I with plan for left heart catheterization tomorrow. Hospitalist was then contacted for admission. I saw the patient at bedside in the ED. Patient was pleasant and sitting back comfortably in bed, conversing normally and in no acute distress. Stated that his chest pain was moderately improved from earlier today. Reported mild chest discomfort but the back pain was gone at this time. Does report having an infection that kept him in bed for 2 to 3 days shortly before the chest pain began. His main symptoms were URI symptoms and fatigue with bodyaches. Patient is a former smoker. He does report using marijuana occasionally. He denies any other acute concerns currently. Will be admitted for further management. [facility] Medical History Wears glasses Cancer Arthritis History [...] myocardial infarction (07/22/09) Atherosclerotic heart disease of [place] coronary artery without angina pectoris HTN (hypertension) Morbid obesity with BMI of 40.0-44.9, adult Tobacco use disorder HLD (hyperlipidemia) Family history of ischemic heart disease Home Medications ???Medication ???Instructions ???Recorded ???Last Taken ???Type aspirin 325 mg tablet 325 mg PO DAILY@0800 11/09/1802/05 History metoprolol tartrate 25 mg tablet 25 mg PO BID 10/27/20 03/04/25 His tory multivitamin 1 tab PO DAILY 03/27/21 03/03/25 H istory glucosamine HCl 1,500 mg tablet 1,000 mg PO DAILY 08/17/21 5 History losartan 100 mg tablet 100 mg PO DAILY 11/17/21 03/04/25 History amlodipine 10 mg tablet (Norvasc) 10 mg PO DAILY 09/12/23 03/04/25 History duloxetine 30 mg capsule,delayed 30 mg PO DAILY 09/12/23 03/04/25 H istory release (Cymbalta) ashwagandha root extract 500 mg 1,300 mg PO DAILY 09/16/23 5 History capsule magnesium 200 mg tablet 400 mg PO DAILY 09/16/23 Unknown H istory coenzyme Q10 100 mg capsule (Co 300 mg PO DAILY 03/04/25 03/03/25 History Q-10) ibuprofen 200 mg tablet (Addaprin) 800 mg PO Q8H knee pain 03/04/25 03/04/25 History magnesium 250 mg tablet 1,000 mg PO DAILY 03/04/25 5 History Allergy/AdvReac Type Severity Reaction Status Date / Time bee venom protein (honey bee) Allergy Swelling Verified 03/04/25 13:35 atorvastatin AdvReac Severe Myalgias Verified 03/04/25 13:35 cephalexin (From Keflex) AdvReac GIVES ME Verified 03/04/25 13:35 [employer] shellfish derived AdvReac Nausea/Vom/ Verified 03/04/25 13:35 Diarrhea Family History Father , Age 57 of [place], had [place]/CAD at age 39 CAD (coronary artery disease) Myocardial infarction Mother Hypertension Sister Hypertension Surgical History (Reviewed 03/04/25 @ 14: (more content not included)... Normal [facility] Hematocrit Auto (Bld) [Volum e fraction]Ordered By: Anselmo Rios on 03-04-2025 Hematocrit (Bld) [Volume fraction] 45.7 % 40-54 [facility] Hemoglobin A1con 03-04-2025 HbA1c (Bld) [Mass fraction] 5.9 % High <=5.6 [facility] Comment on above: Result Comment: Norm al < 5.7 % Prediabetic 5.7 - 6.4 % Diabetic >or= 6.5 % Please note range changes. Performed By: #### L 460.4564 #### [facility] [place], [address] Hemoglobin A1c percentageOrd ered By: Hamilton Corral on 03-04-2025 HbA1c (Bld) [Mass fraction] 5.9 % High <5.7 [facility] Comment on above: Normal < 5.7 % Predi abetic 5.7 - 6.4 % Diabetic >or= 6.5 % Please note range changes. Hemoglobin measurementOrdere d By: Anselmo Rios on 03-04-2025 Hemoglobin (Bld) [Mass/Vol] 16.1 g/dL 13.0-16.5 [facility] Immature granulocytes/100 WB C Auto (Bld)Ordered By: Anselmo Rios on 03-04-2025 Immature granulocytes/100 WBC (Bld) 0.600 % 0.0-0.9 [facility] Comment on above: IG% - Immature Granu locytes (promyelocytes, myelocytes and metamyelocytes) > 1% indicates that a LEFT SHIFT is Present. International normalized rat io (INR) calculationOrdered By: Anselmo Rios on 03-04-2025 INR Coag (Bld) [Relative time] 1.0 {INR} [facility] L499.0042on 03-04-2025 Trop T High Sen 31 ng/L High <=22 [facility] Comment on above: Result Comment: CRIT ICAL CALLED BY SHARI BREWER TO SEYMOUR RODRIGUES AT 2122 Performed By: #### L 499.0042 #### [facility] [address] [place], [address] Trop T High Sen Normal <=22 [facility] Comment on above: Result Comment: Canc elled via OM: Order Changed Performed By: #### L 499.0042 #### [facility] [address] [place], [address] L499.0043on 03-04-2025 Trop T High Sen 23 ng/L High <=22 [facility] Comment on above: Performed By: #### L 499.0042 #### [facility] [address] [place], [address] Trop T High Sen Normal <=22 [facility] Comment on above: Result Comment: Canc elled via OM: Order Changed Performed By: #### L 499.0043 #### [facility] [address] [place], [address] L501.4021on 03-04-2025 Trop T High Sen 41 ng/L High <=22 [facility] Comment on above: Result Comment: CRIT ICAL CALLED BY SHARI BREWER TO WARREN KUMAR AT 1900 Performed By: #### L 499.0042 #### [facility] [address] [place], [place], [address] Trop T High Sen 34 ng/L High <=22 [facility] Comment on above: Performed By: #### L 499.0043 #### [facility] [address] [place], [place], [address] MCV (mean corpuscular volume ) determinationOrdered By: Anselmo Rios on 03-04-2025 MCV (RBC) [Entitic vol] 86.2 fL 80-94 [facility] Mean corpuscular hemoglobin (MCH) determinationOrdered By: Anselmo Rios on 03-04-2025 MCH (RBC) [Entitic mass] 30.4 pg 27.0-32.0 [facility] Mean corpuscular hemoglobin concentration (MCHC) determinationOrdered By: Anselmo Rios on 03-04-2025 MCHC (RBC) [Mass/Vol] 35.2 g/dL 32-36 [facility] Mean platelet volume determi nationOrdered By: Anselmo Rios on 03-04-2025 Platelet mean volume (Bld) [Entitic vol] 10.5 fL 6.2-12.0 [facility] Monocyte percentageOrdered B y: Anselmo Rios on 03-04-2025 Monocytes/100 WBC (Bld) 5.5 % 0-10 [facility] Neutrophil percentageOrdered By: Anselmo Rios on 03-04-2025 Neutrophils/100 WBC (Bld) 69.0 % 47-70 [facility] Nucleated red blood cell per centageOrdered By: Anselmo Rios on 03-04-2025 Nucleated RBC/100 WBC (Bld) [Ratio] 0 % 0-5 [facility] Partial Thromboplast Timeon 03-04-2025 aPTT Coag (Bld) [Time] 24.1 s Normal 24.1-36.2 [facility] Comment on above: Performed By: #### L 300.4310 #### [facility] [address] [place], [address] aPTT Coag (Bld) [Time] 23.0 s Low 24.1-36.2 [facility] Comment on above: Performed By: #### L 300.4310, L300.3900 #### [facility] [address] [place], [address] Platelet countOrdered By: Andre Rios on 03-04-2025 Platelets (Bld) [#/Vol] 322 10*3/uL 150-450 [facility] Potassium measurement (mass/ volume)Ordered By: Anselmo Rios on 03-04-2025 Potassium (Unsp spec) [Mass/Vol] 4.0 mmol/L 3.3-5.1 [facility] Prothrombin Time w/INRon INR Coag (PPP) [Relative time] 1.0 {INR} Normal [facility] Comment on above: Performed By: #### L 300.4310, L300.3900 #### [facility] [address] [place], [address] PT Coag (PPP) [Time] 13.4 s Normal 11.7-14.9 [facility] Comment on above: Performed By: #### L 300.4310, L300.3900 #### [facility] [address] [place], [address] Prothrombin timeOrdered By: Anselmo Rios on 03-04-2025 PT Coag (PPP) [Time] 13.4 s 11.7-14.9 [facility] RBC Auto (Bld) [#/Vol]Ordere d By: Anselmo Rios on 03-04-2025 RBC (Bld) [#/Vol] 5.30 10*6/uL 4.6-6.2 [facility] Serum creatinine measurement (mass/volume)Ordered By: Anselmo Rios on 03-04-2025 Creatinine [Mass/Vol] 0.95 mg/dL 0.70-1.20 [facility] Serum glucose measurement (m ass/volume)Ordered By: Anselmo Rios on 03-04-2025 Glucose [Mass/Vol] 98 mg/dL 70-99 [facility] Serum or plasma calcium rigoberto urement (mass/volume)Ordered By: Anselmo Rios on 03-04-2025 Calcium [Mass/Vol] 8.4 mg/dL 7.6-11.0 [facility] Serum or plasma urea nitroge n measurement (mass/volume)Ordered By: Anselmo Rios on 03-04-2025 Urea nitrogen [Mass/Vol] 11 mg/dL 4-19 [facility] Sodium levelOrdered By: Jaydon Rios on 03-04-2025 Sodium [Moles/Vol] 136 mmol/L 133-145 [facility] TSH DL <= 0.005 mIU/L QnOrde red By: Hamilton Corral on 03-04-2025 TSH Qn 1.510 uIU/mL 0.300-4.200 [facility] Thyroid Stim Hormone (TSH)on 03-04-2025 TSH 1.510 uIU/mL Normal 0.300-4.200 [facility] Comment on above: Performed By: #### L 300.4310 #### [facility] [address] [place], [place], [address] Troponin T.cardiac [Mass/vol ume] in Serum or Plasma by High sensitivity methodOrdered By: Hamilton Corral on 03-04-2025 Troponin T.cardiac High sensitivity method [Mass/Vol] 23 ng/L High <22 [facility] Troponin T.cardiac High sensitivity method [Mass/Vol] 31 ng/L High <22 [facility] Comment on above: CRITICAL CALLED BY Simon BREWER TO SEYMOUR RODRIGUES AT 2122 Troponin T.cardiac [Mass/vol ume] in Serum or Plasma by High sensitivity methodOrdered By: Anselmo Rios on 03-04-2025 Troponin T.cardiac High sensitivity method [Mass/Vol] 34 ng/L High <22 [facility] Troponin T.cardiac [Mass/vol ume] in Serum or Plasma by High sensitivity methodon 03-04-2025 Troponin T.cardiac High sensitivity method [Mass/Vol] [facility] White blood cell (WBC) count Ordered By: Anselmo Rios on 03-04-2025 WBC (Bld) [#/Vol] 7.3 10*3/uL 4.4-11.0 [facility] Emergency Department Summary on 12-13-2024 Emergency Department Summary [facility] Medical Records Department [address] [place] [address] Emergency Department Summary 12/13/24 MR#: [id number] Acct: [id number] Name: ARGELIA COPELAND Rep #: [id number] : 1970 54 From: Wero Santiago DO [...] intact Psych: Cooperative, appropriate mood and affect [facility] Medical History Wears glasses Cancer Arthritis History [...] myocardial infarction (07/22/09) Atherosclerotic heart disease of [place] coronary artery without angina pectoris HTN (hypertension) [...] Father , Age 57 of [place], had [place]/CAD at age 39 CAD (coronary artery disease) Myocardial infarction Mother Hypertension Sister Hypertension Surgical History S/P umbilical hernia repair, follow-up exam Hx of surgical procedure History of surgery on arm History of dental surgery Stented coronary dav (more content not included)... Normal [facility] Basophil percentageOrdered B y: Eric Odom on 11-04-2023 Chloride [Moles/Vol] 104 mmol/L 98-107 [facility] Cholesterol [Mass/Vol] 232 mg/dL <200 [facility] Comment on above: <200 mg/dL Desirable 200-240 mg/dL Borderline >240 mg/dL High Risk Glucose [Mass/Vol] 114 mg/dL 74-106 [facility] Comment on above: Fasting Glucose resu lt from 100 to 125 mg/dL suggests IMPAIRED HOMEOSTASIS per A.D.A. criteria. Potassium [Moles/Vol] 3.5 mmol/L 3.5-5.1 [facility] Sodium [Moles/Vol] 137 mmol/L 136-145 [facility] Triglyceride [Mass/Vol] 239 mg/dL <199 [facility] Comment on above: The drugs N-Acetylcy steine and Metamizole may falsely depress this assay.Serum Triglycerides Reference Interval Normal <150 mg/dL Borderline high 150 - 199 mg/dL High 200 - 499 mg/dL Very High > or = 500 mg/dL Laboratory - Chemistry and C hemistry - challengeOrdered By: Eric Odom on 11-04-2023 Cholesterol in HDL [Mass/Vol] 39 mg/dL >40 [facility] Comment on above: The drugs N-Acetylcy steine and Metamizole may falsely depress this assay. Reference Range HDL <40 mg/dL Low HDL Cholesterol HDL >or= 60 mg/dL High HDL Cholesterol Cholesterol in LDL [Mass/Vol] 145 mg/dL 0-130 [facility] CO2 [Moles/Vol] 25.0 mmol/L 21.0-32.0 [facility] Urea nitrogen/Creatinine [Mass ratio] 15.7 mg/mg 10-20 [facility] No Panel InformationOrdered By: Eric Odom on 11-04-2023 Estimated GFR (MDRD) Amer 98 mL/min >60 [facility] Comment on above: GFR Calc Estimated GFR (MDRD) Non-Af Amer 81 mL/min >60 [facility] Comment on above: Non- GFR Calc VLDL Cholesterol 48 mg/dL 5-40 [facility] Serum or plasma calcium rigoberto urement (mass/volume)Ordered By: Eric Odom on 11-04-2023 Calcium [Mass/Vol] 9.0 mg/dL 8.5-10.1 [facility] Serum or plasma creatinine m easurement (mass/volume)Ordered By: Eric Odom on 11-04-2023 Creatinine [Mass/Vol] 1.02 mg/dL 0.70-1.30 [facility] Comment on above: The validity of the calculated GFR & GFRAA in patients over 70 years has not been determined. Clinical correlation is essential. Serum or plasma thyroid stim ulating hormone (TSH) measurement (units/volume)Ordered By: Eric Odom on 11-04-2023 TSH Qn 1.63 uIU/mL 0.358-3.74 [facility] Serum or plasma urea nitroge n measurement (mass/volume)Ordered By: Eric Odom on 11-04-2023 Urea nitrogen [Mass/Vol] 16 mg/dL 7-18 [facility] Thin prep Papanicolaou smear with manual screeningOrdered By: Eric Odom on 11-04-2023 Thin prep Papanicolaou smear with manual screening 8 5-15 [facility] Whole blood hemoglobin A1c/t otal hemoglobin ratio (mass fraction)Ordered By: Eric Odom on 11-04-2023 HbA1c (Bld) [Mass fraction] 6.2 % 3.8-5.6 [facility] Comment on above: Normal < 5.7 % Predi abetic 5.7 - 6.4 % Diabetic >or= 6.5 % Please note range changes. Basophil percentageOrdered B y: Jaylan Kaur on 09-20-2023 Chloride [Moles/Vol] 106 mmol/L 98-107 [facility] Glucose [Mass/Vol] 132 mg/dL 74-106 [facility] Comment on above: Fasting Glucose resu lt greater than or equal to 126 mg/dL suggests DIABETES MELLITUS per A.D.A. criteria. Hemoglobin (Bld) [Mass/Vol] 15.5 g/dL 13.0-16.5 [facility] Potassium [Moles/Vol] 3.6 mmol/L 3.5-5.1 [facility] Sodium [Moles/Vol] 139 mmol/L 136-145 [facility] WBC (Bld) [#/Vol] 9.2 10*3/uL 4.4-11.0 [facility] Determination of erythrocyte mean corpuscular volume (MCV)Ordered By: Jaylan Kaur on 09-20-2023 MCV (RBC) [Entitic vol] 85.4 fL 80-94 [facility] Erythrocyte distribution wid th ratioOrdered By: Jaylan Kaur on 09-20-2023 Erythrocyte distribution width (RBC) [Ratio] 13.3 % 11.6-14.6 [facility] Erythrocyte distribution wid th standard deviationOrdered By: Jaylan Kaur on 09-20-2023 Erythrocyte distribution width (RBC) [Entitic vol] 41.1 fL 35.1-43.9 [facility] Hematocrit Auto (Bld) [Volum e fraction]Ordered By: Jaylan Kaur on 09-20-2023 Hematocrit (Bld) [Volume fraction] 45.0 % 40-54 [facility] Laboratory - Chemistry and C hemistry - challengeOrdered By: Jaylan Kaur on 09-20-2023 CO2 [Moles/Vol] 25.0 mmol/L 21.0-32.0 [facility] Urea nitrogen/Creatinine [Mass ratio] 14.7 mg/mg 10-20 [facility] Laboratory - Hematology and Cell countsOrdered By: Jaylan Kaur on 09-20-2023 MCH (RBC) [Entitic mass] 29.4 pg 27.0-32.0 [facility] MCHC (RBC) [Mass/Vol] 34.4 g/dL 32-36 [facility] Platelets (Bld) [#/Vol] 355 10*3/uL 150-450 [facility] No Panel InformationOrdered By: Jaylan Kaur on 09-20-2023 Estimated GFR (MDRD) Amer 91 mL/min >60 [facility] Comment on above: GFR Calc Estimated GFR (MDRD) Non-Af Amer 75 mL/min >60 [facility] Comment on above: Non- GFR Calc Platelet mean volume Travis-Ec ker (Bld) [Entitic vol]Ordered By: Jaylan Kaur on 09-20-2023 Platelet mean volume (Bld) [Entitic vol] 10.0 fL 6.2-12.0 [facility] RBC Auto (Bld) [#/Vol]Ordere d By: Jaylan Kaur on 09-20-2023 RBC (Bld) [#/Vol] 5.27 10*6/uL 4.6-6.2 [facility] Serum or plasma calcium rigoberto urement (mass/volume)Ordered By: Jaylan Kaur on 09-20-2023 Calcium [Mass/Vol] 9.2 mg/dL 8.5-10.1 [facility] Serum or plasma creatinine m easurement (mass/volume)Ordered By: Jaylan Kaur on 09-20-2023 Creatinine [Mass/Vol] 1.09 mg/dL 0.70-1.30 [facility] Comment on above: The validity of the calculated GFR & GFRAA in patients over 70 years has not been determined. Clinical correlation is essential. Serum or plasma urea nitroge n measurement (mass/volume)Ordered By: Jaylan Kaur on 09-20-2023 Urea nitrogen [Mass/Vol] 16 mg/dL 7-18 [facility] Thin prep Papanicolaou smear with manual screeningOrdered By: Jaylan Kaur on 09-20-2023 Thin prep Papanicolaou smear with manual screening 8 5-15 [facility] MRI ELBOW W/O CONTRAST LEFTo n [...] Date: 01/11/2022 11:04:29 AM Ordering Provider: ROBERT BENITES [facility] (MD) Laboratory - Microbiology an d Antimicrobial susceptibilityon 10-01-2021 SARS-CoV-2 (COVID-19) RNA SHAMIKA+probe Ql (Unsp spec) Not detected Not Detect [facility] Work Phone: Comment on above: Normal Reference Ran ge: Not DetectedMethod:(RT-PCR) real-time reverse transcriptase PCRLuminex CATIE Instrument*The Food and Drug Administration (FDA) has issued an Emergency Use Authorization (EAU) for the CATIE SARS-CoV-2 Assay for the rapid detection of the virus that causes COVID-19. This test has been validated, but the [facility] independent review of this validation is pending.*Negative [...] Ql (Unsp spec) Not detected Not Detect [facility] Work Phone: Comment on above: Normal [...] has had recent exposure. Basic Metabolic Panelon 06- Calcium [Mass/Vol] 9.1 mg/dL Normal 8.4-10.4 [facility] Comment on above: Performed By: #### [facility] [place] BMP3 #### [facility] [address] [place] [address] Glucose [Mass/Vol] 87 mg/dL Normal 70-100 [facility] Comment on above: Performed By: #### Robin BENNETT BMP3 #### [facility] [address] [place] [address] Urea nitrogen [Mass/Vol] 20 mg/dL Normal 7-20 [facility] Comment on above: Performed By: #### Robin BENNETT BMP3 #### [facility] [address] [place] [address] Anion gap [Moles/Vol] 8 Normal [facility] Comment on above: Performed By: #### Robin BENNETT BMP3 #### [facility] [address] [place] [address] CO2 [Moles/Vol] 25 mmol/L Normal 22-30 [facility] Comment on above: Performed By: #### Robin BENNETT BMP3 #### [facility] [address] [place] [address] Creatinine [Mass/Vol] 1.09 mg/dL Normal 0.52-1.25 [facility] Comment on above: Performed By: #### Robin BENNETT BMP3 #### [facility] [address] [place] [address] GFR/1.73 sq M predicted among blacks MDRD (S/P/Bld) [Vol rate/Area] mL/min/{1.73_m2} Normal >60 [facility] Comment on above: Performed By: #### Robin BENNETT BMP3 #### [facility] [address] [place] [address] GFR/1.73 sq M predicted among non-blacks MDRD (S/P/Bld) [Vol rate/Area] mL/min/{1.73_m2} Normal >60 [facility] Comment on above: Result Comment: Sour ce- MDRD equation with creatinine calibration to IDMS(NKDEP) eGFR not recommended for drug dose adjustment Performed By: #### Robin BENNETT BMP3 #### [facility] [address] [place] [address] Chloride [Moles/Vol] 107 mmol/L Normal 98-107 [facility] Comment on above: Performed By: #### H SABRINA, BMP3 #### [facility] [address] [place] [address] Potassium [Moles/Vol] 3.9 mmol/L Normal 3.5-5.1 [facility] Comment on above: Performed By: #### H SABRINA, BMP3 #### [facility] [address] [place] [address] Sodium [Moles/Vol] 140 mmol/L Normal 135-145 [facility] Comment on above: Performed By: #### H SABRINA, BMP3 #### [facility] [address] [place] [address] Hemogramon 02-13-2019 Erythrocyte distribution width (RBC) [Ratio] 13.7 % Normal 11.5-14.5 [facility] Comment on above: Performed By: #### H SABRINA BMP3 #### [facility] [address] [place] [address] Hematocrit (Bld) [Volume fraction] 43.6 % Normal 40.0-52.0 [facility] Comment on above: Performed By: #### H SABRINA BMP3 #### [facility] [address] [place] [address] Hemoglobin (Bld) [Mass/Vol] 15.0 g/dL Normal 13.0-18.0 [facility] Comment on above: Performed By: #### H SABRINA, BMP3 #### [facility] [address] [place] [address] MCH (RBC) [Entitic mass] 30.4 pg Normal 26.0-34.0 [facility] Comment on above: Performed By: #### H EMOYanna, BMP3 #### [facility] [address] [place] [address] MCHC (RBC) [Mass/Vol] 34.4 % Normal 32.0-36.0 [facility] Comment on above: Performed By: #### H EMOG, BMP3 #### [facility] [address] [place] [address] MCV (RBC) [Entitic vol] 88.5 fL Normal 80.0-98.0 [facility] Comment on above: Performed By: #### H SABRINA BMP3 #### [facility] [address] [place] [address] Platelet mean volume (Bld) [Entitic vol] 7.6 fL Normal 7.4-10.4 [facility] Comment on above: Performed By: #### H SABRINA BMP3 #### [facility] [address] [place] [address] Platelets (Bld) [#/Vol] 264 10*3/uL Normal 140-440 [facility] Comment on above: Performed By: #### H SABRINA BMP3 #### [facility] [address] [place] [address] RBC (Bld) [#/Vol] 4.92 10*6/uL Normal 4.40-5.90 [facility] Comment on above: Performed By: #### H SABRINA BMP3 #### [facility] [address] [place] [address] WBC (Bld) [#/Vol] 8.5 10*3/uL Normal 3.6-10.7 [facility] Comment on above: Performed By: #### H SABRINA BMP3 #### [facility] [address] [place] [address] Vital Signs Date Time Vital Sign Value Performing Clinician Bradley [email or web address] 03-26-2025 07:31-0400 Body height 193.[address] Eric Odom MD Work Phone: [facility] 03-26-2025 07:31-0400 Body mass index (BMI) [Ratio] 45.3 kg/m2 Dr. Eric Odom MD Work Phone: [facility] 03-26-2025 07:31-0400 Body weight 169.[address] Eric Odom MD Work Phone: [facility] 03-26-2025 07:31-0400 Diastolic blood pressure 81 mm[Hg] Dr. Eric Odom MD Work Phone: [facility] 03-26-2025 07:31-0400 Heart rate 90 /min Dr. Eric Odom MD Work Phone: [facility] 03-26-2025 07:31-0400 Respiratory rate 22 /min Dr. Eric Odom MD Work Phone: [facility] 03-26-2025 07:31-0400 SaO2% (BldA) [Mass fraction] 94 % Dr. Eric Odom MD Work Phone: 6(228)442-259735 [place] [address] 03-26-2025 07:31-0400 Systolic blood pressure 117 mm[Hg] Dr. Eric Odom MD Work Phone: 6(488)297-584988 [place] [address] 03-12-2025 14:27-0400 Body height 193.[address] Eric Odom MD Work Phone: 9(500)445-065088 [place] [address] 03-12-2025 14:22-0400 Diastolic blood pressure 69 mm[Hg] Dr. Eric Odom MD Work Phone: 3(529)082-419488 [place] [address] 03-12-2025 14:22-0400 Systolic blood pressure 110 mm[Hg] Dr. Eric Odom MD Work Phone: 8(540)219-338288 [place] [address] 03-12-2025 14:21-0400 Body mass index (BMI) [Ratio] 45.3 kg/m2 Dr. Eric Odom MD Work Phone: 2(828)495-783088 [place] [address] 03-12-2025 14:21-0400 Body weight 169.[address] Eric Odom MD Work Phone: 8(161)789-262056 [address] 03-12-2025 14:21-0400 Heart rate 65 /min Dr. Eric Odom MD Work Phone: 1(997)956-976935 [place] [address] 03-12-2025 14:21-0400 Respiratory rate 16 /min Dr. Eric Odom MD Work Phone: 9(404)168-035788 [place] [address] 03-12-2025 14:21-0400 SaO2% (BldA) [Mass fraction] 95 % Dr. Eric Odom MD Work Phone: 9(900)968-897156 [address] 03-06-2025 15:00-0400 Diastolic blood pressure 97 mm[Hg] Dr. Eric Odom MD Work Phone: [facility] 03-06-2025 15:00-0400 Heart rate 67 /min Dr. Eric Odom MD Work Phone: [facility] 03-06-2025 15:00-0400 SaO2% (BldA) [Mass fraction] 96 % Dr. Eric Odom MD Work Phone: 9(927)423-078856 [address] 03-06-2025 15:00-0400 Systolic blood pressure 149 mm[Hg] Dr. Eric Odom MD Work Phone: 8(635)532-495888 [place] [address] 03-06-2025 07:40-0400 Body temperature 98.5 [degF] Dr. Eric Odom MD Work Phone: 2(952)533-282388 [place] [address] 03-06-2025 07:40-0400 Respiratory rate 16 /min Dr. Eric Odom MD Work Phone: 1(908)693-901788 [place] [address] 03-04-2025 17:15-0400 Body height 193.[address] Eric Odom MD Work Phone: 0(030)081-390188 [place] [address] 03-04-2025 17:15-0400 Body mass index (BMI) [Ratio] 46.3 kg/m2 Dr. Eric Odom MD Work Phone: 2(299)528-422988 [place] [address] 03-04-2025 17:15-0400 Body weight 172.[address] Eric Oodm MD Work Phone: 4(125)922-080135 [place] [address] 03-04-2025 16:43-0400 Body temperature 98.2 [degF] Dr. Eric Odom MD Work Phone: 9(672)770-962735 [place] [address] 03-04-2025 16:43-0400 Diastolic blood pressure 87 mm[Hg] Dr. Eric Odom MD Work Phone: 0(928)256-036088 [place] [address] 03-04-2025 16:43-0400 Heart rate 55 /min Dr. Eric Odom MD Work Phone: 7(108)181-027856 [address] 03-04-2025 16:43-0400 Respiratory rate 12 /min Dr. Eric Odom MD Work Phone: [facility] 03-04-2025 16:43-0400 SaO2% (BldA) [Mass fraction] 100 % Dr. Eric Odom MD Work Phone: [facility] 03-04-2025 16:43-0400 Systolic blood pressure 144 mm[Hg] Dr. Eric Odom MD Work Phone: 2(722)639-277488 [place] [address] 03-04-2025 13:30-0400 Body height 193.[address] Eric Odom MD Work Phone: 7(727)931-907988 [place] [address] 03-04-2025 13:30-0400 Body mass index (BMI) [Ratio] 47 kg/m2 Dr. Eric Odom MD Work Phone: 0(013)292-593188 [place] [address] 03-04-2025 13:30-0400 Body weight 175.[address] Eric Odom MD Work Phone: 3(347)831-811788 [place] [address] 12-13-2024 09:22-0400 Body temperature 97.9 [degF] Dr. Eric Odom MD Work Phone: 3(393)287-270688 [place] [address] 12-13-2024 09:22-0400 Diastolic blood pressure 77 mm[Hg] Dr. Eric Odom MD Work Phone: 5(264)498-226488 [place] [address] 12-13-2024 09:22-0400 Heart rate 84 /min Dr. Eric Odom MD Work Phone: 0(451)427-475435 [place] [address] 12-13-2024 09:22-0400 Respiratory rate 17 /min Dr. Eric Odom MD Work Phone: 3(771)005-933135 [place] [address] 12-13-2024 09:22-0400 SaO2% (BldA) [Mass fraction] 100 % Dr. Eric Odom MD Work Phone: 2(177)578-232935 [place] [address] 12-13-2024 09:22-0400 Systolic blood pressure 170 mm[Hg] Dr. Eric Odom MD Work Phone: 3(747)423-158956 [address] 12-13-2024 08:22-0400 Body height 193.[address] Eric Odom MD Work Phone: [facility] 12-13-2024 08:22-0400 Body mass index (BMI) [Ratio] 47.9 kg/m2 Dr. Eric Odom MD Work Phone: [facility] 12-13-2024 08:22-0400 Body weight 178.[address] Eric Odom MD Work Phone: [facility] 09-22-2023 16:20-0500 Body temperature 97.5 [degF] Dr. Eric Odom Work Phone: [facility] 09-22-2023 16:20-0500 Diastolic blood pressure 89 mm[Hg] Dr. Eric Odom Work Phone: [facility] 09-22-2023 16:20-0500 Heart rate 77 /min Dr. Eric Odom Work Phone: [facility] 09-22-2023 16:20-0500 Respiratory rate 18 /min Dr. Eric Odom Work Phone: [facility] 09-22-2023 16:20-0500 SaO2% (BldA) [Mass fraction] 94 % Dr. Eric Odom Work Phone: [facility] 09-22-2023 16:20-0500 Systolic blood pressure 139 mm[Hg] Dr. Eric Odom Work Phone: [facility] 09-22-2023 13:10-0500 Body height 193.[address] Eric Odom Work Phone: [facility] 09-22-2023 13:10-0500 Body mass index (BMI) [Ratio] 48.3 kg/m2 Dr. Eric Odom Work Phone: [facility] 09-22-2023 13:10-0500 Body weight [address] Eric Odom Work Phone: [facility] 09-12-2023 14:05-0500 Body mass index (BMI) [Ratio] 47.7 kg/m2 Dr. Eric Odom Work Phone: [facility] 09-12-2023 14:05-0500 Body temperature 97.4 [degF] Dr. Eric Odom Work Phone: [facility] 09-12-2023 14:05-0500 Body weight 178.[address] Eric Odom Work Phone: [facility] 09-12-2023 14:05-0500 Diastolic blood pressure 90 mm[Hg] Dr. Eric Odom Work Phone: [facility] 09-12-2023 14:05-0500 Heart rate 81 /min Dr. Eric Odom Work Phone: [facility] 09-12-2023 14:05-0500 Respiratory rate 18 /min Dr. Eric Odom Work Phone: [facility] 09-12-2023 14:05-0500 SaO2% (BldA) [Mass fraction] 95 % Dr. Eric Odom Work Phone: [facility] 09-12-2023 14:05-0500 Systolic blood pressure 147 mm[Hg] Dr. Eric Odom Work Phone: [facility] 08-08-2023 13:10-0500 Body mass index (BMI) [Ratio] 48.3 kg/m2 Dr. Eric Odom Work Phone: [facility] 08-08-2023 13:10-0500 Body temperature 100 [degF] Dr. Eric Odom Work Phone: [facility] 08-08-2023 13:10-0500 Body weight 180.[address] Eric Odom Work Phone: [facility] 08-08-2023 13:10-0500 Diastolic blood pressure 85 mm[Hg] Dr. Eric Odom Work Phone: [facility] 08-08-2023 13:10-0500 Heart rate 107 /min Dr. Eric Odom Work Phone: [facility] 12-04-2023 13:10-0500 Respiratory rate 16 /min Dr. Eric Odom Work Phone: [facility] 08-08-2023 13:10-0500 SaO2% (BldA) [Mass fraction] 96 % Dr. Eric Odom Work Phone: [facility] 08-08-2023 13:10-0500 Systolic blood pressure 139 mm[Hg] Dr. Eric Odom Work Phone: [facility] 03-24-2022 10:31-0400 Body height 193.[address] Eric Odom Work Phone: [facility] Work Phone: 03-24-2022 10:31-0400 Diastolic blood pressure 98 mm[Hg] Dr. Eric Odom Work Phone: [facility] Work Phone: 03-24-2022 10:31-0400 Systolic blood pressure 142 mm[Hg] Dr. Eric Odom Work Phone: [facility] Work Phone: 03-24-2022 10:31-0400 Body mass index (BMI) [Ratio] 45.3 kg/m2 Dr. Eric Odom Work Phone: [facility] Work Phone: 03-24-2022 10:31-0400 Body weight 169.[address] Eric Odom Work Phone: [facility] Work Phone: 03-24-2022 10:31-0400 Heart rate 94 /min Dr. Eric Odom Work Phone: [facility] Work Phone: 03-24-2022 10:31-0400 Respiratory rate 18 /min Dr. Eric Odom Work Phone: [facility] Work Phone: 03-24-2022 10:31-0400 SaO2% (BldA) [Mass fraction] 94 % Dr. Eric Odom Work Phone: [facility] Work Phone: 12-20-2021 14:32-0400 Body height 193.[address] Eric Odom Work Phone: [facility] Work Phone: 12-20-2021 14:32-0400 Body mass index (BMI) [Ratio] 45.1 kg/m2 Dr. Eric Odom Work Phone: [facility] Work Phone: 12-20-2021 14:32-0400 Body temperature 97.8 [degF] Dr. Eric Odom Work Phone: [facility] Work Phone: 12-20-2021 14:32-0400 Body weight [address] Eric Odom Work Phone: [facility] Work Phone: 12-20-2021 14:32-0400 Diastolic blood pressure 78 mm[Hg] Dr. Eric Odom Work Phone: [facility] Work Phone: 12-20-2021 14:32-0400 Heart rate 85 /min Dr. Eric Odom Work Phone: [facility] Work Phone: 12-20-2021 14:32-0400 Respiratory rate 14 /min Dr. Eric Odom Work Phone: [facility] Work Phone: 12-20-2021 14:32-0400 SaO2% (BldA) [Mass fraction] 97 % Dr. Eric Odom Work Phone: [facility] Work Phone: 12-20-2021 14:32-0400 Systolic blood pressure 120 mm[Hg] Dr. Eric Odom Work Phone: [facility] Work Phone: 11-17-2021 15:08-0400 Body mass index (BMI) [Ratio] 46.1 kg/m2 Dr. Eric Odom Work Phone: [facility] Work Phone: 11-17-2021 15:08-0400 Body weight 167.[address] Eric Odom Work Phone: [facility] Work Phone: 11-17-2021 15:08-0400 Diastolic blood pressure 80 mm[Hg] Dr. Eric Odom Work Phone: [facility] Work Phone: 11-17-2021 15:08-0400 Heart rate 76 /min Dr. Eric Odom Work Phone: [facility] Work Phone: 11-17-2021 15:08-0400 Respiratory rate 16 /min Dr. Eric Odom Work Phone: [facility] Work Phone: 11-17-2021 15:08-0400 Systolic blood pressure 130 mm[Hg] Dr. Eric Odom Work Phone: [facility] Work Phone: 10-10-2021 15:47-0500 Body mass index (BMI) [Ratio] 46.2 kg/m2 Dr. Eric Odom Work Phone: [facility] Work Phone: 10-10-2021 15:47-0500 Body temperature 97.8 [degF] Dr. Eric Odom Work Phone: [facility] Work Phone: 10-10-2021 15:47-0500 Body weight 167.[address] Eric Odom Work Phone: [facility] Work Phone: 10-10-2021 15:47-0500 Diastolic blood pressure 102 mm[Hg] Dr. Eric Odom Work Phone: [facility] Work Phone: 10-10-2021 15:47-0500 Heart rate 93 /min Dr. Eric Odom Work Phone: [facility] Work Phone: 10-10-2021 15:47-0500 Respiratory rate 18 /min Dr. Eric Odom Work Phone: [facility] Work Phone: 10-10-2021 15:47-0500 SaO2% (BldA) [Mass fraction] 99 % Dr. Eric Odom Work Phone: [facility] Work Phone: 10-10-2021 15:47-0500 Systolic blood pressure 174 mm[Hg] Dr. Eric Odom Work Phone: [facility] Work Phone: Encounters Encounter Date Encounter Type Care Provider Facility Start: 04-22-2025 ambulatory Norma Crow [employer] Facili ty:[facility] Start: 03-31-2025 ambulatory Norma Crow [employer] Facili ty:[facility] Start: 03-26-2025 End: 03-26-2025 Patient encounter procedure Norma Crow [employer]-[facility] -[facility] Work Phone: Start: 03-26-2025 End: 03-26-[address] Eric Odom MD Work Phone: [facility] Start: 03-26-2025 End: 03-26-2025 ambulatory Norma Crow [employer] Facility:[facility] Start: 03-12-2025 End: 03-12-2025 Patient encounter procedure Norma Crow [employer]-[facility] -[facility] Work Phone: Start: 03-12-2025 End: 03-12-[address] Eric Odom MD Work Phone: -[facility] Start: 03-12-2025 End: 03-12-2025 ambulatory Norma Crow NP Facility:[facility] Start: 03-06-2025 Non-patient / Non-visit Dr. Sam Cuellar MD -[facility] Work Phone: Start: 03-06-2025 Non-patient / Non-visit Dr. Haritha garvey MD -[facility] Start: 03-05-2025 Non-patient / Non-visit Dr. Haritha garvey MD -[facility] Start: 03-05-2025 Non-patient / Non-visit Dr. Sam Cuellar MD -[facility] Work Phone: Start: 03-04-2025 ambulatory [facility] [place] Start: 03-04-2025 End: 03-06-2025 Evaluation and management of inpatient Dr. Hamilton Corral DO -Progressive Care Unit Work Phone: Start: 12-13-2024 End: 12-13-2024 Emergency department patient visit Dr. Eric Odom MD Work Phone: -Emergency Department Work Phone: Start: 11-04-2023 End: 11-04-[address] Eric Odom Work Phone: [facility] Work Phone: Start: 11-04-2023 End: 11-04-[address] Eric Odom Work Phone: [facility] Start: 10-06-2023 End: 10-06-[address] Eric Odom Work Phone: [facility] Work Phone: Start: 09-22-2023 Non-patient / Non-visit Dr. Gary Odom Work Phone: [facility] Start: 09-22-2023 End: 09-22-2023 Admission to same day surgery center [facility] Start: 09-20-2023 End: 09-20-2023 Non-patient / Non-visit Dr. Eric Odom Work Phone: [facility] Work Phone: Start: 09-12-2023 End: 09-12-[address] Eric Odom Work Phone: [facility] Work Phone: Start: 08-08-2023 End: 08-08-[address] Eric Odom Work Phone: [facility] Work Phone: Start: 06-29-2023 End: 06-29-2023 ambulatory [facility] Work Phone: Start: 06-29-2023 End: 06-29-2023 Discharged Recurring [facility] Work Phone: Start: 07-12-2022 End: 07-12-2022 ambulatory [facility] Work Phone: Start: 07-12-2022 End: 07-12-2022 Discharged Recurring [facility] Start: 04-21-[address] [facility] Start: 04-19-2022 End: 04-19-[address] Eric Odom Work Phone: [facility] Start: 03-24-2022 End: 03-24-[address] Eric Odom Work Phone: [facility] Start: 01-11-2022 End: 01-11-2022 Patient encounter procedure ROBERT BENITES MD [facility] Start: 12-20-2021 End: 12-20-2021 Emergency department patient visit Dr. Eric Odom Work Phone: [facility]Emergency Department Start: 11-17-2021 End: 11-17-[address] Eric Odom Work Phone: [facility] Start: 10-10-2021 End: 10-10-2021 Emergency department patient visit Dr. Eric Odom Work Phone: [facility]Emergency Department Start: 10-01-2021 End: 10-01-[address] Eric Odom Work Phone: [facility]-Laboratory, Specimen Start: 09-21-2021 End: 09-21-[address] Eric Odom Work Phone: [facility]-Laboratory, Specimen Start: 09-11-2021 End: 09-11-[address] Eric Odom Work Phone: [facility]-Pulmonary Services/Neurology Procedures Date Procedure Procedure Detail Performing Clinician Start: 03-26-2025 X-ray of chest, PA a nd lateral views Dr. Eric Odom MD Work Phone: Start: 03-06-[address] Eric Odom MD Work Phone: Start: 03-04-[address] Eric Odom MD Work Phone: Start: 03-04-2025 CT angiography of ch est with contrast Dr. Eric Odom MD Work Phone: Start: 03-04-2025 X-ray of chest, PA a nd lateral views Dr. Eric Odom MD Work Phone: Start: 03-04-2025 D-dimer assay, quantitative Dr. Eric Oodm MD Work Phone: Comment on above: D-Dimer [...] coronary angioplasty Dr. Eric Odom Work Phone: History of percutane ous transluminal coronary angioplasty History of percutaneous transluminal coronary angioplasty Dr. Sam Cuellar MD Plan of Treatment Date Care Activity Detail Author Start: 03-06-2025 Patient discharge [facility] Start: 03-06-2025 [facility] Start: 03-04-2025 End: 03-04-2025 Following clinical pathway protocol [facility] Start: 03-04-2025 Ambulation without limitation [facility] Start: 03-04-2025 Assessment of risk o f venous thromboembolism [facility] Start: 03-04-2025 Insertion of cathete r into peripheral vein [facility] Start: 03-04-2025 Measuring intake and output [facility] Start: 03-04-2025 Providing care accor ding to standard [facility] Start: 03-04-2025 Referral to vp integrity [facility] Start: 03-04-[address] [facility] Start: 03-04-2025 [facility] Start: 03-04-2025 Thyroid stimulating hormone measurement [facility] Start: 03-04-2025 Hospital admission, emergency, from emergency room, medical nature [facility] Start: 03-04-2025 End: 03-04-2025 Verification routine [facility] Start: 03-04-[address] [facility] Start: 03-04-2025 [facility] Start: 03-04-2025 End: 03-05-2025 [facility] Start: 03-04-2025 [facility] Start: 12-13-2024 [facility] Start: 09-22-2023 Patient discharge [facility] Start: 09-22-2023 Anesthesia hernia re pair lower abdomen nos ANESTH REPAIR OF HERNIA [facility] Start: 09-22-2023 RPR AA HRN 1ST < 3 CM RDC RPR AA HRN 1ST < 3 CM RDC [facility] Basic metabolic 2007 panel with ionized calcium - Serum or Plasma [facility] Basic metabolic 2008 panel with ionized calcium - Serum or Plasma [facility] Cardiac event recording [facility] CBC W Auto Different ial panel - Blood [facility] CBC W Auto Different ial panel - Blood [facility] CTA Chest vessels WO and W contrast IV [facility] Hemoglobin A1c/Hemoglobin.total in Blood [facility] Hepatic function panel [facility] Lipid 1996 panel - S wilman or Plasma [facility] Magnesium measurement [facility] Magnesium measurement [facility] Natriuretic peptide. B prohormone N-Terminal [Mass/volume] in Serum or Plasma [facility] Patient Education [facility] Work Phone: Patient referral [facility] Work Phone: Thyroid stimulating hormone measurement [facility] Troponin T.cardiac [Mass/volume] in Serum or Plasma by High sensitivity method [facility] Troponin T.cardiac [Mass/volume] in Serum or Plasma by High sensitivity method [facility] XR Chest PA and Lateral [facility] Immunizations Immunization Date Immunization Notes Care Provider Fa cility 12-20-2021 tetanus toxoid, redu lupe diphtheria toxoid, and acellular pertussis vaccine, adsorbed Dr. Eric Odom Work Phone: [facility] Payers Date Payer Category Payer Unknown [id number] 2024 Self-pay [id number] 2024 Unknown [id number] 2014 Unknown [id number] Unknown [id number] Unknown [id number] 2.16.8 [id number] Unknown [id number] 2.16.8 [id number] Unknown [id number] 2.16.8 [id number] Unknown [id number] 2.16.8 [id number] Unknown [id number] 2.16.8 [id number] Unknown [id number] 2.16.8 [id number] Unknown [id number] 2.16.8 [id number] Unknown [id number] 2.16.8 [id number] Unknown [id number] 2.16.8 [id number] Unknown [id number] 2.16.8 [id number] Unknown [id number] 2.16.8 [id number] Unknown [id number] 2.16.8 [id number] Unknown [id number] 2.16.8 [id number] Social History Date Type Detail Facility Start: 12-20-2021 End: 09-16-2023 Tobacco smoking status UTIS Unknown if ever smoked [facility] Start: 01-01-2021 Cigarettes [facility] Start: 1970 Sex Assigned At Male [facility] Work Phone: Start: 02-19-2014 None [facility] Start: 02-19-2014 With Family [facility] Start: 12-13-2024 End: 03-04-2025 Tobacco smoking status NHIS Ex-smoker (finding) [facility] Start: 12-13-2024 Sex Male (finding) [facility] Medical Equipment Procedure Code Equipment Code Equipment Origin al Text Equipment Identifier Dates Repair, hernia, umbilical, using mesh ([id number]) Extra-gynaecologic al surgical mesh, composite-polymer [id number] FDA Start: 09-22-2023 Goals Date Patient Goal Desired Activity /State Functional Status Date Assessment Result Facility 03-06-2025 Functional status Ambulates;Up ad kieran [facility] Work Phone: Mental Status Date Assessment Result Facility 03-06-2025 Cognitive function Voice/Name [facility] Work Phone: 03-04-2025 Cognitive function Awake;Alert;A ppropriate;Fol lows Commands [facility] Work Phone: 09-22-2023 Cognitive function Voice/Name [facility] Work Phone: Clinical Notes 07-22-2009 to 03-26-2025 Note Date & Type Note Facility 03-26-2025 Radiology Diagnostic study note [facility] Imaging Services [address] [place] [address] Chest PA and Lateral MR#: [id number] Acct: [id number] Name: ARGELIA COPELAND Rep #: [id number] : 1970 M 55 From: Rahel Lopez MD PCP: Dr. Eric Odom MD Status: REG C JIE Study:Chest PA and Lateral Date of Exam: 03/26/25 Exam# [id number] Ordering Dr: Norma Crow SUPERVISOR ACCOUNTING CLERKS SUPERVISOR ACCOUNTING CLERKS-C PROCEDURE: CHEST PA AND LATERAL 03/26/2025 REASON FOR EXAM: ROGERS TECHNIQUE: CHEST PA AND LATERAL COMPARISON: 03/04/2025 FINDINGS: No focal consolidation. No pleural effusion or pneumothorax. Cardiac silhouette is within normal limits. No acute fractures. RAD/Chest PA and Lateral IMPRESSION: No focal consolidations. Reading Location: [id number] CC: SUPERVISOR ACCOUNTING CLERKS-C Norma Crow; Dr. Eric Odom MD ~ [place]: Signed [facility] 03-06-2025 Discharge summary Note Date/Time March 06, 2025 1:22p m [facility] Medical Records Department [address] [place] [address] Discharge Summary 03/06/25 1235 MR#: [id number] Acct: [id number] Name: ARGELIA COPELAND Rep #:[id number] : 1970 54 From: Sam Merritt PCP: Dr. Eric Odom MD Status:ADM I N Location: [place] [address] Providers Date of Admission: 03/04/25 Date of Discharge: 03/06/25 Primary Care Physician: Dr. Eric Odom MD Consultations 03/04/25 17:16 Consult: Cardiology Routine Consulting Provider: Haritha Hernandez Reason for Consult: NSTEMI EMERGENT Consult: No MD Notified: Yes Date Notified: 03/04/25 Time Notified: 17:21 Method of Notification: Text Reason For Visit: NSTEMI Diagnosis Discharge Diagnosis (1) History of percutaneous transluminal coronary angioplasty: Status: Chronic Code(s): Z98.61 - Coronary angioplasty status (2) History of lateral wall myocardial infarction: Status: Chronic Code(s): I25.2 - Old myocardial infarction (3) Tobacco use disorder: Status: Chronic Code(s): F17.200 - Nicotine dependence, unspecified, uncomplicated (4) HLD (hyperlipidemia): Status: Chronic Code(s): E78.5 - Hyperlipidemia, unspecified (5) Family history of ischemic heart disease: Status: Chronic Code(s): Z82.49 - Family history of ischemic heart disease and other diseases of the circulatory system (6) Stented coronary artery: Status: Chronic Code(s): Z95.5 - Presence of coronary angioplasty implant and graft Plan Patient is a 54-year-old male who presented to [facility] ED on 03/04/2025 with chest pain. 1. NSTEMI; history of CAD with stenting, hypertension, hyperlipidemia ? Admit under inpatient status to U. Cardiology consulted. High suspicion for NSTEMI type I given prior history of CAD with stenting and typical chest pain with improvement with rest. EKG with no ischemic changes noted. 03/05: Serial troponins 41, 31 and 23. Fasting profile TG 345, TC 228, LDL 122, VLDL 69, HDL 37. A1c 5.9%. Customer Quality Engineer recommended to start heparin drip. N.p.o. plan for left heart cath tomorrow. 2D echo is ordered. Continue hold ifheart rate less than 60/min and if persistently low between 60-70/m, can decrease the dose to 25 mg twice daily in consultation his PCP, amlodipine. Hold losartan for cardiac cath. 03/06: Patient had cardiac catheter today. Cardiac cath reported shows moderate disease in 3 vessels. Distal LM ruptured plaque, around 40%. LAD large vessel,diffuse mid to distal around 60%. D1 is small to moderate, ostial 60 to 70%, ramus intermedius stent patent. LCx ostial around 40%. OM 50 to 60%. RCA large dominant ectatic vessel, around 30%. Mild elevation in isolated troponin. Aggressive medical treatment. Discussed with vp integrity recommended dual antiplatelet regiment, Plavix for 1 year, aspirin indefinitely, beta-hernandez, losartan. Patient has myalgia with atorvastatin and he said he could not walk therefore all statins are contraindicated. Lipid profile TC 228, TG 1045, HDL 37, VLDL 69, LDL 122. Advised to follow with PCP to discuss for Vascepa but it might need prior authorization for 2. Uncontrolled hypertension:Blood pressure uncontrolled in the 140s to 150s. Morning 180/103. Labetalol IV 20 mg ordered. Blood pressure is in 140s to 150sat baseline, can be discharged. Heart rate on lower side in 50s. On losartan and amlodipine. Chlorthalidone 12.5 mg prescribed. Chronic low back pain with radiculopathy ? Patient does report taking ibuprofen 800 mg frequently for this, which could contribute to NSTEMI as above. Hold NSAIDs going forward. Continue home duloxetine. 3. Class III obesity ? BMI 46 on admit. Encouraged lifestyle modifications. 4. Marijuana use ? Reports occasional use. Discussed cessation on discharge. DVT prophylaxis: Not indicated, on heparin drip CODE STATUS: Full code, verified Discharge medication reconciliation done. Discharge follow-up instructions completed. Discharge process discussed with the patient and all questions wereanswered to patient's satisfaction. Follow with PCP in 1 to 2 weeks Total time spent, exact 35 minutes on discharge meds reconciliation, examination, coordination of care with nurses and ancillary staff, review of imaging and blood test and discussion with the patient on follow-up instructions. 03/04/25 13:40: WBC 7.3, RBC 5.30, Hgb 16.1, Hct 45.7, MCV 86.2, MCH 30.4, MCHC 35.2, RDW Std Deviation 41.0, RDW Coeff of Sandy 13.2, Plt Count 322, MPV 10.5, Immature Gran % (Auto) 0.600, Neut % (Auto) 69.0, Lymph % (Auto) 22.4, [place] % (Auto) 5.5, Eos % (Auto) 1.4, Baso % (Auto) 1.1 H, Absolute Neuts (auto) 5.0, Absolute Lymphs (auto) 1.63, Nucleated RBC % 0, PT 13.4, INR 1.0, APTT 23.0 L, D-Dimer Quant (PE/DVT) 0.59 H*, 03/04/25 15:30: Sodium 136, Potassium 4.0, Chloride 102, Carbon Dioxide 22.5, Anion Gap 11, BUN 11, Creatinine 0.95, Estim Creat Clear Calc 151.76, Est GFR (MDRD) Non-Af 95, BUN/Creatinine Ratio 11.3, Glucose 98, Hemoglobin A1c 5.9 H, Calcium 8.4, Troponin T High Sens 34 H, TSH 1.510 03/04/25 18:03: Troponin T High Sens 41 H D 03/04/25 19:48: Troponin T Hi Sens 2 Hr 31 H 03/04/25 21:53: APTT 24.1, Troponin T Hi Sens 4Hr 23 H 03/05/25 05:45: WBC 8.6, RBC 5.14, Hgb 15.4, Hct 45.3, MCV 88.1, MCH 30.0, MCHC 34.0, RDW Std Deviation 42.7, RDW Coeff of Sandy 13.2, Plt Count 325, MPV 10.0, APTT 25.8, Sodium 139, Potassium 4.3, Chloride 104, Carbon Dioxide 23.1, Anion Gap 13, BUN 13, Creatinine 1.00, Estim Creat Clear Calc 142.99, Est GFR (MDRD) Non-Af 89, BUN/Creatinine Ratio 12.6, Glucose 101 H, Calcium 9.2, Triglycerides 345 H, Cholesterol 228 H, LDL Cholesterol, Calc 122, VLDL Cholesterol 69 H, HDL Cholesterol 37 L, Cholesterol/HDL Ratio 6.16 Medications at Discharge Home Medications aspirin 325 mg tablet 325 mg PO DAILY@0800 11/09/18 metoprolol tartrate 25 mg tablet 25 mg PO BID 02/22/21 multivitamin 1 tab PO DAILY 03/27/21 glucosamine HCl 1,500 mg tablet 1,000 mg PO DAILY 08/17/21 losartan 100 mg tablet 100 mg PO DAILY 11/17/21 amlodipine 10 mg tablet (Norvasc) 10 mg PO DAILY 09/12/23 duloxetine 30 mg capsule,delayed release (Cymbalta) 30 mg PO DAILY 09/12/23 ashwagandha root extract 500 mg capsule 1,300 mg PO DAILY 09/16/23 Held on 03/06/25. Instructions: Talk to PCP magnesium 200 mg tablet 400 mg PO DAILY 09/16/23 coenzyme Q10 100 mg capsule (Co Q-10) 300 mg PO DAILY 03/04/25 aspirin 81 mg chewable tablet 81 mg PO BREAKFAST 90 days #90 tabs 03/06/25 chlorthalidone 12.5 mg tablet 12.5 mg PO DAILY 1 month #30 tabs 03/06/25 clopidogrel 75 mg tablet (Plavix) 75 mg PO DAILY 1 month #30 tabs 03/06/25 Physical Exam Narrative Seen and examined. Plan for cardiac catheter today. No acute chest pain or shortness of breath. History taken from the patient. History of NV in 2019 with LAD stent in [facility]. At this time he complained of left lower scapular pain with radiation to left shoulder without related to activity or exertion for last several days. No precordial chest pain. He felt similar characteristics of pain when he had NV in 2008. No significant associated with shortness of breath Physical exam General: Alert, Oriented x3, Cooperative. Morbid obesity BMI 46.3 kg/m? HEENT: Atraumatic, PERRLA, EOMI, Normocephalic. Oral: No Gingival or Mucosal Lesions/ Ulcerations Neck: Supple, No JVD, Negative Carotid Bruits Chest wall/Lungs: Air entry diminished in bilateral lung bases. No crepitation/rhonchi Cardiovascular: Regular rate and rhythm, Normal S1,S2, No M/G/R Abdomen: Bowel Sounds Present, Soft, Non Tender, Non-Distended : No dysuria. No renal angle tenderness. No suprapubic tenderness. Extremities: No edema, Capillary Refill Less than 3 Seconds Skin: Right hand [place]. No bleeding or hematoma Musculoskeletal: No Tenderness to Palpation of Joints or Extremities. ROM intact Neurological: Cranial nerves II-XII grossly intact, DTR 2+/4. No acute focal neurological deficit. Psych/Mental Status: Normal Affect, Appropriate. Weight / BMI Weight Weight: 380 lb 8.285 oz Body Mass Index (BMI) 46.3 ABG / Lab / Microbiology Data 03/05/25 05:45 03/06/25 04:40 Laboratory: Laboratory Results - last 24 hr 03/05/25 13:50: APTT 25.2 03/05/25 20:57: APTT 28.1 03/06/25 04:40: APTT 27.4, Sodium 139, Potassium 3.8, Chloride 102, Carbon Dioxide 21.0, Anion Gap 16 H, BUN 11, Creatinine 0.97, Estim Creat Clear Calc 147.41, Est GFR (MDRD) Non-Af 93, BUN/Creatinine Ratio 11.8, Glucose 90, Calcium9.1, Total Bilirubin 0.35, AST 21, ALT 24, Alkaline Phosphatase 97, Troponin T High Sens 11 D, Total Protein 6.9, Albumin 3.8, Globulin 3.1, Albumin/Globulin Ratio 1.2 Radiography Diagnostic Testing: Radiology Impression Echocardiogram 03/04/25 17:27 Interpretation Summary The estimated ejection fraction is 55???60 %. Normal LV systolic function No significant change from previous echocardiogram Contrast echo/Definity used Ordering Physician: Hamilton Corral Referring Physician: Hamilton Corral Performed By: Wero Knutson RCS D/C Instructions DC O2, CPAP, BIPAP Needs Home O2 Discharge instructions: No Meaningful Use Info Meaningful Use Meaningful Use Diagnoses (Choose all that apply): AMI AMI/Post PCI/Angioplasty Aspirin given w/in 24hrs of arrival?: Yes ASA at discharge?: Yes Statins at discharge?: Yes Pawan/ARB at discharge?: Yes Beta Hernandez at discharge?: Yes Done w/ Acute NV measure.: Yes Ischemic Stroke Statin Dosing Therapy Reference: STATIN DOSE THERAPY REFERENCE: * Patients > 75 years receive moderate or high dose statin therapy. * Patients 75 years or YOUNGER should receive HIGH intensity statin dose unless contraindicated. You will be required to document reason for non-treatment if statin daily dose does not meet guidelines. HIGH DOSE STATIN THERAPY DAILY Atorvastatin > than or = to 40 mg Rosuvastatin > than or = to 20 mg Amlodipine + Atorvastatin > than or = to 2.5/40 mg Ezetimibe + Simvastatin 10/80 mg Simvastatin 80mg Discharge Plan Admission Admit Date/Time: 03/04/25 16:31 Attending Provider: Sam Cuellar Primary Care Provider: Eric Odom Consulting Providers: Haritha Hernandez; Hamilton Corral Instructions Additional Instructions / Restrictions: Contraindication with the statin. Advised follow-up PCP to request prior authorization for Vascepa Discharge Orders/Prescriptions Prescriptions: New aspirin 81 mg Tablet,Chewable 81 mg PO BREAKFAST 90 Days Qty: 90 1RF chlorthalidone 12.5 mg tablet 12.5 mg PO DAILY 30 Days Qty: 30 1RF clopidogrel [Plavix] 75 mg tablet 75 mg PO DAILY 30 Days Qty: 30 2RF Continued metoprolol tartrate 25 mg tablet 25 mg [...] DAILY@0800 multivitamin Tablet 1 tab PO DAILY magnesium 200 mg tablet 400 mg PO DAILY coenzyme Q10 [Co Q-10] 100 mg capsule 300 mg PO DAILY Held ashwagandha root extract 500 mg capsule 1,300 mg PO DAILY Hold Instructions: Talk to PCP Discontinued magnesium 250 mg tablet 1,000 mg PO DAILY ibuprofen [Addaprin] 200 mg tablet 800 mg PO Q8H Referrals / Follow Up: Eric Odom MD [Primary Care Provider] - Within 2 Weeks (Contraindication withthe statin. Advised follow-up PCP to request prior authorization for Vascepa) Angelica Whitman PA [Med Staff - Adv Practice Prof] - Within 2 Weeks Disposition Disposition (needs filled in before D/C Order can be placed): Home, Self Care Charges/Coding Visit Charges Inpatient E&M: 43083 Disch Hosp >30min 03/06/25 1322 <Electronically signed by Sam Cuellar MD> Cosigner Signature (if applicable): CC: Dr. Eric Odom MD; Dr. Sam Cuellar MD~ Signed [facility] Work Phone: 1(561) 271-635207-02-2025 Discharge summary Author Sam Cuellar [facility] Note Date/Time March 06, 2025 12:35 pm [facility] Medical Records Department [address] [place] [address] Instructions for Home/Discharge Instructions 03/06/25 1030 MR#: [id number] Acct: [id number] Name: ARGELIA COPELAND Rep #:[id number] : 1970 54 From: Sam Merritt PCP: Dr. Eric Odom MD Status:ADM I N Discharge Instructions DC O2, CPAP, BIPAP needs Home O2 Discharge instructions: No Follow Up Care Test Results: Test results from this visit will be discussed in further detail at your follow- up appointment, if applicable. Discharge Plan Admission Admit Date/Time: 03/04/25 16:31 Attending Provider: Sam Cuellar Primary Care Provider: Eric Odom Consulting Providers: Haritha Hernandez; Hamilton Corral Discharge Orders/Prescriptions Prescriptions: New aspirin 81 mg Tablet,Chewable 81 mg PO BREAKFAST 90 Days Qty: 90 1RF chlorthalidone 12.5 mg tablet 12.5 mg PO DAILY 30 Days Qty: 30 1RF clopidogrel [Plavix] 75 mg tablet 75 mg PO DAILY 30 Days Qty: 30 2RF rosuvastatin 10 mg tablet 10 mg PO DAILY 30 Days Qty: 30 2RF Continued metoprolol tartrate 25 mg tablet 25 mg [...] DAILY@0800 multivitamin Tablet 1 tab PO DAILY magnesium 200 mg tablet 400 mg PO DAILY coenzyme Q10 [Co Q-10] 100 mg capsule 300 mg PO DAILY Held ashtrinidha root extract 500 mg capsule 1,300 mg PO DAILY Hold Instructions: Talk to PCP Discontinued magnesium 250 mg tablet 1,000 mg PO DAILY ibuprofen [Addaprin] 200 mg tablet 800 mg PO Q8H Referrals / Follow Up: Eric Odom MD [Primary Care Provider] - Angelica Whitman PA [Med Staff - [facility] Practice Prof] - Within 2 Weeks Disposition Disposition (needs filled in before D/C Order can be placed): Home, Self Care 03/06/25 1235<Electronically signed by Sam Cuellar MD>Sam Cuellar MD CC: Dr. Hamilton Corral DO; Dr. Haritha Hernandez MD; Dr. Eric Odom MD ~ Signed [facility] Work Phone: 1(535) 490-528607-02-2025 Hospital Discharge instructionsAdditional Instructions Contraindication with the statin. Advised follow-up PCP to request prior authorization for Vascepa Date of Discharge: 03/06/25[facility] Work Phone: 1(459) 538-453307-02-2025 Discharge summary [facility] Medical Records Department [address] [place] [address] Discharge Summary 03/06/25 1235 MR#: [id number] Acct: [id number] Name: ARGELIA COPELAND Rep #:[id number] : 1970 54 From: Sam Merritt PCP: Dr. Eric Odom MD Status:ADM I N Location: [place] [id number] Providers Date of Admission: 03/04/25 Date of Discharge: 03/06/25 Primary Care Physician: Dr. Eric Odom MD Consultations 03/04/25 17:16 Consult: Cardiology Routine Consulting Provider: Haritha Hernandez Reason for Consult: NSTEMI EMERGENT Consult: No MD Notified: Yes Date Notified: 03/04/25 Time Notified: 17:21 Method of Notification: Text Reason For Visit: NSTEMI Diagnosis Discharge Diagnosis (1) History of percutaneous transluminal coronary angioplasty: Status: Chronic Code(s): Z98.61 - Coronary angioplasty status (2) History of lateral wall myocardial infarction: Status: Chronic Code(s): I25.2 - Old myocardial infarction (3) Tobacco use disorder: Status: Chronic Code(s): F17.200 - Nicotine dependence, unspecified, uncomplicated (4) HLD (hyperlipidemia): Status: Chronic Code(s): E78.5 - Hyperlipidemia, unspecified (5) Family history of ischemic heart disease: Status: Chronic Code(s): Z82.49 - Family history of ischemic heart disease and other diseases of the circulatory system (6) Stented coronary artery: Status: Chronic Code(s): Z95.5 - Presence of coronary angioplasty implant and graft Plan Patient is a 54-year-old male who presented to [facility] ED on 03/04/2025 with chest pain. 1. NSTEMI; history of CAD with stenting, hypertension, hyperlipidemia ? Admit under inpatient status to PCU. Cardiology consulted. High suspicion for NSTEMI type I givenprior history of CAD with stenting and typical chest pain with improvement with rest. EKG with no ischemic changes noted. 03/05: Serial troponins 41, 31 and 23. Fasting profile TG 345, TC 228, LDL 122, VLDL 69, HDL 37. A1c 5.9%. Customer Quality Engineer recommended to start heparin drip. N.p.o. plan for left heart cath tomorrow. 2D echo is ordered. Continue hold ifheart rate less than 60/min and if persistently low between 60-70/m,can decrease the dose to 25 mg twice daily in consultation his PCP, amlodipine. Hold losartan for cardiac cath. 03/06: Patient had cardiac catheter today. Cardiac cath reported shows moderate disease in 3 vessels.Distal LM ruptured plaque, around 40%. LAD large vessel,diffuse mid to distal around 60%. D1 is small to moderate, ostial 60 to 70%, ramus intermedius stent patent. LCx ostial around 40%. OM 50 to 60%. RCA large dominant ectatic vessel, around 30%. Mild elevation in isolated troponin. Aggressive medical treatment. Discussed with vp integrity recommended dual antiplatelet regiment, Plavix for 1 year, aspirin indefinitely, beta-hernandez, losartan. Patient has myalgia with atorvastatin and he said he could not walk therefore all statins are contraindicated. Lipid profile TC 228, TG 1045, HDL 37, VLDL 69, LDL 122. Advised to follow with PCP to discuss for Vascepa but it might need prior authorization for 2. Uncontrolled hypertension:Blood pressure uncontrolled in the 140s to 150s. Morning 180/103. Labetalol IV 20 mg ordered. Blood pressure is in 140s to 150sat baseline, can be discharged. Heart rate on lower side in 50s. On losartan and amlodipine. Chlorthalidone 12.5 mg prescribed. Chronic low back pain with radiculopathy ? Patient does report taking ibuprofen 800 mg frequently for this, which could contribute to NSTEMIas above. Hold NSAIDs going forward. Continue home duloxetine. 3. Class III obesity ? BMI 46 on admit. Encouraged lifestyle modifications. 4. Marijuana use ? Reports occasional use. Discussed cessation on discharge. DVT prophylaxis: Not indicated, on heparin drip CODE STATUS: Full code, verified Discharge medication reconciliation done. Discharge follow-up instructions completed. Discharge process discussed with the patient and all questions wereanswered to patient's satisfaction. Follow with PCP in 1 to 2 weeks Total time spent, exact 35 minutes on discharge meds reconciliation, examination, coordination of care with nurses and ancillary staff, review of imaging and blood test and discussion with the patient on follow-up instructions. 03/04/25 13:40: WBC 7.3, RBC 5.30, Hgb 16.1, Hct 45.7, MCV 86.2, MCH 30.4, MCHC 35.2, RDW Std Deviation 41.0, RDW Coeff of Sandy 13.2, Plt Count 322, MPV 10.5, Immature Gran % (Auto) 0.600, Neut % (Auto) 69.0, Lymph % (Auto) 22.4, [place] % (Auto) 5.5, Eos % (Auto) 1.4, Baso % (Auto) 1.1 H, Absolute Neuts (auto) 5.0, Absolute Lymphs (auto) 1.63, Nucleated RBC % 0, PT 13.4, INR 1.0, APTT 23.0 L, D-Dimer Quant (PE/DVT) 0.59 H*, 03/04/25 15:30: Sodium 136, Potassium 4.0, Chloride 102, Carbon Dioxide 22.5, Anion Gap 11, BUN 11,Creatinine 0.95, Estim Creat Clear Calc 151.76, Est GFR (MDRD) Non-Af 95, BUN/Creatinine Ratio 11.3, Glucose 98, Hemoglobin A1c 5.9 H, Calcium 8.4, Troponin T High Sens 34 H, TSH 1.510 03/04/25 18:03: Troponin T High Sens 41 H D 03/04/25 19:48: Troponin T Hi Sens 2 Hr 31 H 03/04/25 21:53: APTT 24.1, Troponin T Hi Sens 4Hr 23 H 03/05/25 05:45: WBC 8.6, RBC 5.14, Hgb 15.4, Hct 45.3, MCV 88.1, MCH 30.0, MCHC 34.0, RDW Std Deviation 42.7, RDW Coeff of Sandy 13.2, Plt Count 325, MPV 10.0, APTT 25.8, Sodium 139, Potassium 4.3, Chloride 104, Carbon Dioxide 23.1, Anion Gap 13, BUN 13, Creatinine 1.00, Estim Creat Clear Calc 142.99, Est GFR (MDRD) Non-Af 89, BUN/Creatinine Ratio 12.6, Glucose 101 H, Calcium 9.2, Triglycerides 345H, Cholesterol 228 H, LDL Cholesterol, Calc 122, VLDL Cholesterol 69 H, HDL Cholesterol 37 L, Cholesterol/HDL Ratio 6.16 Medications at Discharge Home Medications aspirin 325 mg tablet 325 mg PO DAILY@0800 11/09/18 metoprolol tartrate 25 mg tablet 25 mg PO BID 10/27/20 multivitamin 1 tab PO DAILY 03/27/21 glucosamine HCl 1,500 mg tablet 1,000 mg PO DAILY 08/17/21 losartan 100 mg tablet 100 mg PO DAILY 11/17/21 amlodipine 10 mg tablet (Norvasc) 10 mg PO DAILY 09/12/23 duloxetine 30 mg capsule,delayed release (Cymbalta) 30 mg PO DAILY 09/12/23 ashwagandha root extract 500 mg capsule 1,300 mg PO DAILY 09/16/23 Held on 03/06/25. Instructions: Talk to PCP magnesium 200 mg tablet 400 mg PO DAILY 09/16/23 coenzyme Q10 100 mg capsule (Co Q-10) 300 mg PO DAILY 03/04/25 aspirin 81 mg chewable tablet 81 mg PO BREAKFAST 90 days #90 tabs 03/06/25 chlorthalidone 12.5 mg tablet 12.5 mg PO DAILY 1 month #30 tabs 03/06/25 clopidogrel 75 mg tablet (Plavix) 75 mg PO DAILY 1 month #30 tabs 03/06/25 Physical Exam Narrative Seen and examined. Plan for cardiac catheter today. No acute chest pain or shortness of breath. History taken from the patient. History of NV in 2019 with LAD stent in [facility]. At this time he complained of left lower scapular pain with radiation to left shoulder without related to activity or exertion for last several days. No precordial chest pain. He felt similar characteristics of pain when he had NV in 2008. No significant associated with shortness of breath Physical exam General: Alert, Oriented x3, Cooperative. Morbid obesity BMI 46.3 kg/m? HEENT: Atraumatic, PERRLA, EOMI, Normocephalic. Oral: No Gingival or Mucosal Lesions/ Ulcerations Neck: Supple, No JVD, Negative Carotid Bruits Chest wall/Lungs: Air entry diminished in bilateral lung bases. No crepitation/rhonchi Cardiovascular: Regular rate and rhythm, Normal S1,S2, No M/G/R Abdomen: Bowel Sounds Present, Soft, Non Tender, Non-Distended : No dysuria. No renal angle tenderness. No suprapubic tenderness. Extremities: No edema, Capillary Refill Less than 3 Seconds Skin: Right hand [place]. No bleeding or hematoma Musculoskeletal: No Tenderness to Palpation of Joints or Extremities. ROM intact Neurological: Cranial nerves II-XII grossly intact, DTR 2+/4. No acute focal neurological deficit. Psych/Mental Status: Normal Affect, Appropriate. Weight / BMI Weight Weight: 380 lb 8.285 oz Body Mass Index (BMI) 46.3 ABG / Lab / Microbiology Data 03/05/25 05:45 03/06/25 04:40 Laboratory: Laboratory Results - last 24 hr 03/05/25 13:50: APTT 25.2 03/05/25 20:57: APTT 28.1 03/06/25 04:40: APTT 27.4, Sodium 139, Potassium 3.8, Chloride 102, Carbon Dioxide 21.0, Anion Gap 16 H, BUN 11, Creatinine 0.97, Estim Creat Clear Calc 147.41, Est GFR (MDRD) Non-Af 93, BUN/Creatinine Ratio 11.8, Glucose 90, Calcium9.1, Total Bilirubin 0.35, AST 21, ALT 24, Alkaline Phosphatase 97, Troponin T High Sens 11 D, Total Protein 6.9, Albumin 3.8, Globulin 3.1, Albumin/Globulin Ratio 1.2 Radiography Diagnostic Testing: Radiology Impression Echocardiogram 03/04/25 17:27 Interpretation Summary The estimated ejection fraction is 55???60 %. Normal LV systolic function No significant change from previous echocardiogram Contrast echo/Definity used Ordering Physician: Hamilton Corral Referring Physician: Hamilton Corral Performed By: Wero Knutson RCS D/C Instructions DC O2, CPAP, BIPAP Needs Home O2 Discharge instructions: No Meaningful Use Info Meaningful Use Meaningful Use Diagnoses (Choose all that apply): AMI AMI/Post PCI/Angioplasty Aspirin given w/in 24hrs of arrival?: Yes ASA at discharge?: Yes Statins at discharge?: Yes Pawan/ARB at discharge?: Yes Beta Hernandez at discharge?: Yes Done w/ Acute NV measure.: Yes Ischemic Stroke Statin Dosing Therapy Reference: STATIN DOSE THERAPY REFERENCE: * Patients > 75 years receive moderate or high dose statin therapy. * Patients 75 years or YOUNGER should receive HIGH intensity statin dose unless contraindicated. You will be required to document reason for non-treatment if statin daily dose does not meet guidelines. HIGH DOSE STATIN THERAPY DAILY Atorvastatin > than or = to 40 mg Rosuvastatin > than or = to 20 mg Amlodipine + Atorvastatin > than or = to 2.5/40 mg Ezetimibe + Simvastatin 10/80 mg Simvastatin 80mg Discharge Plan Admission Admit Date/Time: 03/04/25 16:31 Attending Provider: Sam Cuellar Primary Care Provider: Eric Odom Consulting Providers: Haritha Hernandez; Hamilton Corral Instructions Additional Instructions / Restrictions: Contraindication with the statin. Advised follow-up PCP to request prior authorization for Vascepa Discharge Orders/Prescriptions Prescriptions: New aspirin 81 mg Tablet,Chewable 81 mg PO BREAKFAST 90 Days Qty: 90 1RF chlorthalidone 12.5 mg tablet 12.5 mg PO DAILY 30 Days Qty: 30 1RF clopidogrel [Plavix] 75 mg tablet 75 mg PO DAILY 30 Days Qty: 30 2RF Continued metoprolol tartrate 25 mg tablet 25 mg [...] DAILY@0800 multivitamin Tablet 1 tab PO DAILY magnesium 200 mg tablet 400 mg PO DAILY coenzyme Q10 [Co Q-10] 100 mg capsule 300 mg PO DAILY Held ashwagandha root extract 500 mg capsule 1,300 mg PO DAILY Hold Instructions: Talk to PCP Discontinued magnesium 250 mg tablet 1,000 mg PO DAILY ibuprofen [Addaprin] 200 mg tablet 800 mg PO Q8H Referrals / Follow Up: Eric Odom MD [Primary Care Provider] - Within 2 Weeks (Contraindication withthe statin. Advisedfollow-up PCP to request prior authorization for Vascepa) Angelica Whitman PA [Med Staff - Adv Practice Prof] - Within 2 Weeks Disposition Disposition (needs filled in before D/C Order can be placed): Home, Self Care Charges/Coding Visit Charges Inpatient E&M: 22172 Disch Hosp >30min 03/06/25 1322 Cosigner Signature (if applicable): CC: Dr. Eric Odom MD; Dr. Sam Cuellar MD~ Signed [facility]07-02-2025 Discharge summary [facility] Medical Records Department [address] [place] [address] Instructions for Home/Discharge Instructions 03/06/25 1030 MR#: [id number] Acct: [id number] Name: ARGELIA COPELAND Rep #:[id number] : 1970 54 From: Sam Merritt PCP: Dr. Eric Odom MD Status:ADM I N Discharge Instructions DC O2, CPAP, BIPAP needs Home O2 Discharge instructions: No Follow Up Care Test Results: Test results from this visit will be discussed in further detail at your follow- up appointment, if applicable. Discharge Plan Admission Admit Date/Time: 03/04/25 16:31 Attending Provider: Sam Cuellar Primary Care Provider: Eric Odom Consulting Providers: Haritha Hernandez; Hamilton Corral Discharge Orders/Prescriptions Prescriptions: New aspirin 81 mg Tablet,Chewable 81 mg PO BREAKFAST 90 Days Qty: 90 1RF chlorthalidone 12.5 mg tablet 12.5 mg PO DAILY 30 Days Qty: 30 1RF clopidogrel [Plavix] 75 mg tablet 75 mg PO DAILY 30 Days Qty: 30 2RF rosuvastatin 10 mg tablet 10 mg PO DAILY 30 Days Qty: 30 2RF Continued metoprolol tartrate 25 mg tablet 25 mg [...] DAILY@0800 multivitamin Tablet 1 tab PO DAILY magnesium 200 mg tablet 400 mg PO DAILY coenzyme Q10 [Co Q-10] 100 mg capsule 300 mg PO DAILY Held ashwagandha root extract 500 mg capsule 1,300 mg PO DAILY Hold Instructions: Talk to PCP Discontinued magnesium 250 mg tablet 1,000 mg PO DAILY ibuprofen [Addaprin] 200 mg tablet 800 mg PO Q8H Referrals / Follow Up: Eric Odom MD [Primary Care Provider] - Angelica Whitman PA [Med Staff - [facility] Practice Prof] - Within 2 Weeks Disposition Disposition (needs filled in before D/C Order can be placed): Home, Self Care 03/06/25 1235Sam Cuellar MD CC: Dr. Hamilton Corral DO; Dr. Haritha Hernandez MD; Dr. Eric Odom MD ~ Signed [facility]07-02-2025 [facility] Medical Records Department [address] [place] [id number] Discharge Summary 03/06/25 1235 MR#: [id number] Acct: [id number] Name: ARGELIA COPELAND Rep #: [id number] : 1970 54 From: Sam Cuellar MD PCP: Dr. Eric Odom MD Status:ADM IN Location: [place] [address] Providers Date of Admission: 03/04/25 Date of Discharge: 03/06/25 Primary Care Physician: Dr. Eric Odom MD Consultations 03/04/25 17:16 Consult: Cardiology Routine Consulting Provider: Haritha Hernandez Reason for Consult: NSTEMI EMERGENT Consult: No MD Notified: Yes Date Notified: 03/04/25 Time Notified: 17:21 Method of Notification: Text Reason For Visit: NSTEMI Diagnosis Discharge Diagnosis (1) History of percutaneous transluminal coronary angioplasty: Status: Chronic Code(s): Z98.61 - Coronary angioplasty status (2) History of lateral wall myocardial infarction: Status: Chronic Code(s): I25.2 - Old myocardial infarction (3) Tobacco use disorder: Status: Chronic Code(s): F17.200 - Nicotine dependence, unspecified, uncomplicated (4) HLD (hyperlipidemia): Status: Chronic Code(s): E78.5 - Hyperlipidemia, unspecified (5) Family history of ischemic heart disease: Status: Chronic Code(s): Z82.49 - Family history of ischemic heart disease and other diseases of the circulatory system (6) Stented coronary artery: Status: Chronic Code(s): Z95.5 - Presence of coronary angioplasty implant and graft Plan Patient is a 54-year-old male who presented to [facility] ED on 03/04/2025 with chest pain. 1. NSTEMI; history of CAD with stenting, hypertension, hyperlipidemia ??? Admit under inpatient status to PCU. Cardiology consulted. High suspicion for NSTEMI type I given prior history of CAD with stenting and typical chest pain with improvement with rest. EKG with no ischemic changes noted. 03/05: Serial troponins 41, 31 and 23. Fasting profile TG 345, TC 228, LDL 122, VLDL 69, HDL 37. A1c 5.9%. Customer Quality Engineer recommended to start heparin drip. N.p.o. plan for left heart cath tomorrow. 2D echo is ordered. Continue hold if heart rate less than 60/min and if persistently low between 60-70/m, can decrease the dose to 25 mg twice daily in consultation his PCP, amlodipine. Hold losartan for cardiac cath. 03/06: Patient had cardiac catheter today. Cardiac cath reported shows moderate disease in 3 vessels. Distal LM ruptured plaque, around 40%. LAD large vessel, diffuse mid to distal around 60%. D1 is small to moderate, ostial 60 to 70%, ramus intermedius stent patent. LCx ostial around 40%. OM 50 to 60%. RCA large dominant ectatic vessel, around 30%. Mild elevation in isolated troponin. Aggressive medical treatment. Discussed with vp integrity recommended dual antiplatelet regiment, Plavix for 1 year, aspirin indefinitely, beta-hernandez, losartan. Patient has myalgia with atorvastatin and he said he could not walk therefore all statins are contraindicated. Lipid profile TC 228, TG 1045, HDL 37, VLDL 69, LDL 122. Advised to follow with PCP to discuss for Vascepa but it might need prior authorization for 2. Uncontrolled hypertension:Blood pressure uncontrolled in the 140s to 150s. Morning 180/103. Labetalol IV 20 mg ordered. Blood pressure is in 140s to 150s at baseline, can be discharged. Heart rate on lower side in 50s. On losartan and amlodipine. Chlorthalidone 12.5 mg prescribed. Chronic low back pain with radiculopathy ??? Patient does report taking ibuprofen 800 mg frequently for this, which could contribute to NSTEMI as above. Hold NSAIDs going forward. Continue home duloxetine. 3. Class III obesity ??? BMI 46 on admit. Encouraged lifestyle modifications. 4. Marijuana use ??? Reports occasional use. Discussed cessation on discharge. DVT prophylaxis: Not indicated, on heparin drip CODE STATUS: Full code, verified Discharge medication reconciliation done. Discharge follow-up instructions completed. Discharge process discussed with the patient and all questions were answered to patient's satisfaction. Follow with PCP in 1 to 2 weeks Total time spent, exact 35 minutes on discharge meds reconciliation, examination, coordination of care with nurses and ancillary staff, review of imaging and blood test and discussion with the patient on follow-up instructions. 03/04/25 13:40: WBC 7.3, RBC 5.30, Hgb 16.1, Hct 45.7, MCV 86.2, MCH 30.4, MCHC 35.2, RDW Std Deviation 41.0, RDW Coeff of Sandy 13.2, Plt Count 322, MPV 10.5, Immature Gran % (Auto) 0.600, Neut % (Auto) 69.0, Lymph % (Auto) 22.4, [place] % (Auto) 5.5, Eos % (Auto) 1.4, Baso % (Auto) 1.1 H, Absolute Neuts (auto) 5.0, Absolute Lymphs (auto) 1.63, Nucleated RBC % 0, PT 13.4, INR 1.0, APTT 23.0 L, D- Dimer Quant (PE/DVT) 0.59 H*, 03/04/25 15:30: Sodium 136, Potassium 4.0, Chloride 102, Carbon Dioxide 22.5, Anion Gap 11, BUN 11, Creat (more content not included)...[facility]07-01-2025 Consult note Author Haritha Hernandez [facility] Note Date/Time March 05, 2025 1:25p [facility] Medical Records Department [address] [place] [address] Consultation - Cardiology 03/05/25 1320 MR#: [id number] Acct: [id number] Name: ARGELIA COPELAND Rep #:[id number] : 1970 54 From: Haritha Hernandez MD PCP: Dr. Eric Odom MD Status:ADM I N Location: [place] [address] Assessment & Plan Assessment/Plan (1) History of percutaneous transluminal coronary angioplasty: (2) History of lateral wall myocardial infarction: (3) Tobacco use disorder: (4) HLD (hyperlipidemia): (5) Family history of ischemic heart disease: (6) Stented coronary artery: PLAN: 54-year-old patient with known history of CAD with prior PCI and stent in 2008 to the proximal ramus artery. He does not follow-up with cardiology and his presentation with having symptoms of back pain. Which is chronic lower back pain and felt dizzy lightheaded whilehe was in the shower. Evaluated here by EKG which showed normal sinus rhythm through the ED and admitted for further cardiac evaluation. Also noted he had mild elevation of high sensitive troponin Patient uses marijuana. And has a history of lumbar radiculopathy. Cardiac care plan; Based on his clinical presentation and not being seen and followed by vp integrity since 2008 with a prior history of proximal ramus stent Recommended to admit to the hospital and to start medical treatment with heparinand aspirin Patient also declined to take any statin as he had history of myalgia with the statin. I recommended to evaluate him further by echocardiogram as well we will assess by cardiac catheterization to assess patency of the stent and evaluate for progression of CAD. Will discuss further plan based on his result of cardiac evaluation which will include echocardiogram and the cardiac catheterization/right radial artery approach Haritha Hernandez MD,[facility] HPI Consult Data Date of Consult: 03/05/25 HPI Narrative Reason for Consultation: CAD/non-STEMI HPI Narrative: ARGELIA COPELAND, is a 54 M who presents [facility] Medical History (Updated 03/04/25 @ 16:[address] Anselmo Rios, DO) Wears glasses Cancer Arthritis History of Holter monitoring Normal stress echocardiogram History of stress test Hypertension Cardiology follow-up encounter Anxiety Umbilical hernia Essential hypertension Wears contact lenses Depression History of steroid therapy Chronic pain Shortness of breath on exertion Former smoker Edema Myocardial infarct Hx of echocardiogram Back pain right elbow surgery History of lateral wall myocardial infarction (07/22/09) Atherosclerotic heart disease of [place] coronary artery without angina pectoris HTN (hypertension) Morbid obesity with BMI of 40.0-44.9, adult Tobacco use disorder HLD (hyperlipidemia) Family history of ischemic heart disease Home Medications ?Medication ?Instructions ?Recorded ?Last Taken ?Type aspirin 325 mg tablet 325 mg PO DAILY@0800 03/04/25 History metoprolol tartrate 25 mg tablet 25 mg PO BID 10/27/20 03/04/25 History multivitamin 1 tab PO DAILY 03/27/2102/04 History glucosamine HCl 1,500 mg tablet 1,000 mg PO DAILY 08/0503/04/25 History losartan 100 mg tablet 100 mg PO DAILY 11/17/21 History amlodipine 10 mg tablet (Norvasc) 10 mg PO DAILY 09/1203/04/25 History duloxetine 30 mg capsule,delayed 30 mg PO DAILY 03/04/25 History release (Cymbalta) nevin root extract 500 mg 1,300 mg PO [...] Father , Age 57 of [place], had NV/CAD at age 39 CAD (coronary artery disease) Myocardial infarction Mother Hypertension Sister Hypertension Surgical History (Updated 03/04/25 @ 17:20 by Ingris Browning) History of coronary artery stent placement S/P umbilical hernia repair, follow-up exam Hx of surgical procedure History of surgery on arm History of dental surgery Stented coronary artery (07/22/09) Social History household members: other details: mother housing: house current occupational status: employed 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: Former smoker pack-years: 20 alcohol intake: never do you feel safe at home: Yes Physical Exam Cardio Cardio Narrative: Seen and evaluated at bedside along with the nursing staff The cardiac rhythm is sinus rhythm he is comfortable sitting in bed does not have any active chest pain symptoms mainly back pain Cardiac exam S1-S2 is regular Chest exam is clear auscultation bilateral Examination lower extremity no lower extremity edema. Risk Stratification Risk Stratification Applicable: No Objective Data Vital Signs: Vital Signs Temp Pulse Resp BP Pulse Ox O2 Del Method 97.6 F L 65 14 164/103 H 95 Room Air 03/05/25 10:36 07/01/25 10:38 03/05/25 10:36 03/05/25 10:36 03/05/25 10:36 03/05/25 10:36 Oxygen Delivery Method Room Air Weight: 380 lb 8.285 oz Body Mass Index (BMI) 46.3 Intake & Output: Intake and Output for Last 24 Hours 03/03/25 03/04/25 03/05/25 23:59 23:59 23:59 Intake Total 1061.67 / 1301.67 425.7 / 425.7 Balance 1061.67 / 1301.67 425.7 / 425.7 Lab / Micro Data 03/05/25 05:45 03/05/25 05:45 Labs: Laboratory Results - last 24 hr 03/04/25 13:40: WBC 7.3, RBC 5.30, Hgb 16.1, Hct 45.7, MCV 86.2, MCH 30.4, MCHC 35.2, RDW Std Deviation 41.0, RDW Coeff of Sandy 13.2, Plt Count 322, MPV 10.5, Immature Gran % (Auto) 0.600, Neut % (Auto) 69.0, Lymph % (Auto) 22.4, [place] % (Auto) 5.5, Eos % (Auto) 1.4, Baso % (Auto) 1.1 H, Absolute Neuts (auto) 5.0, Absolute Lymphs (auto) 1.63, Nucleated RBC % 0, PT 13.4, INR 1.0, APTT 23.0 L, D-Dimer Quant (PE/DVT) 0.59 H*, Sodium Cancelled, Potassium Cancelled, Chloride Cancelled, Carbon Dioxide Cancelled, Anion Gap Cancelled, BUN Cancelled, Creatinine Cancelled, Estim Creat Clear Calc Cancelled, Est GFR (MDRD) Non-Af Cancelled, BUN/Creatinine Ratio Cancelled, Glucose Cancelled, Calcium Cancelled,Troponin T High Sens Cancelled 03/04/25 15:30: Sodium 136, Potassium 4.0, Chloride 102, Carbon Dioxide 22.5, Anion Gap 11, BUN 11, Creatinine 0.95, Estim Creat Clear Calc 151.76, Est GFR (MDRD) Non-Af 95, BUN/Creatinine Ratio 11.3, Glucose 98, Hemoglobin A1c 5.9 H, Calcium 8.4, Troponin T High Sens 34 H, TSH 1.510 03/04/25 18:03: Troponin T High Sens 41 H D 03/04/25 19:48: Troponin T Hi Sens 2 Hr 31 H 03/04/25 21:53: APTT 24.1, Troponin T Hi Sens 4Hr 23 H 03/05/25 05:45: WBC 8.6, RBC 5.14, Hgb 15.4, Hct 45.3, MCV 88.1, MCH 30.0, MCHC 34.0, RDW Std Deviation 42.7, RDW Coeff of Sandy 13.2, Plt Count 325, MPV 10.0, APTT 25.8, Sodium 139, Potassium 4.3, Chloride 104, Carbon Dioxide 23.1, Anion Gap 13, BUN 13, Creatinine 1.00, Estim Creat Clear Calc 142.99, Est GFR (MDRD) Non-Af 89, BUN/Creatinine Ratio 12.6, Glucose 101 H, Calcium 9.2, Triglycerides 345 H, Cholesterol 228 H, LDL Cholesterol, Calc 122, VLDL Cholesterol 69 H, HDL Cholesterol 37 L, Cholesterol/HDL Ratio 6.16 Cardiology Labs/Tests 03/04/25 13:40: WBC 7.3, RBC 5.30, Hgb 16.1, Hct 45.7, MCV 86.2, MCH 30.4, MCHC 35.2, Plt Count 322, MPV 10.5, Immature Gran % (Auto) 0.600, Neut % (Auto) 69.0,Lymph % (Auto) 22.4, [place] % (Auto) 5.5, Eos % (Auto) 1.4, Baso % (Auto) 1.1 H, Absolute Neuts (auto) 5.0, Nucleated RBC % 0, PT 13.4, INR 1.0, APTT 23.0 L, D-Dimer Quant (PE/DVT) 0.59 H*, Sodium Cancelled, Potassium Cancelled, Chloride Cancelled, Carbon Dioxide Cancelled, Anion Gap Cancelled, BUN Cancelled, Creatinine Cancelled, Est GFR (MDRD) Non-Af Cancelled, BUN/Creatinine Ratio Cancelled, Glucose Cancelled, Calcium Cancelled 03/04/25 15:30: Sodium 136, Potassium 4.0, Chloride 102, Carbon Dioxide 22.5, Anion Gap 11, BUN 11, Creatinine 0.95, Est GFR (MDRD) Non-Af 95, BUN/Creatinine Ratio 11.3, Glucose 98, Hemoglobin A1c 5.9 H, Calcium 8.4 03/04/25 21:53: APTT 24.1 03/05/25 05:45: WBC 8.6, RBC 5.14, Hgb 15.4, Hct 45.3, MCV 88.1, MCH 30.0, MCHC 34.0, Plt Count 325, MPV 10.0, APTT 25.8, Sodium 139, Potassium 4.3, Chloride 104, Carbon Dioxide 23.1, Anion Gap 13, BUN 13, Creatinine 1.00, Est GFR (MDRD) Non-Af 89, BUN/Creatinine Ratio 12.6, Glucose 101 H, Calcium 9.2, Triglycerides 345 H, Cholesterol 228 H, VLDL Cholesterol 69 H, HDL Cholesterol 37 L, Cholesterol/HDL Ratio 6.16 Rhythm: EKG: ECHO: Stress Test: Cardiac Cath: PCI: CT Surgery: Holter monitor: EPS: PPM: CXR: Chest CT Scan: Radiography Diagnostic Testing: Radiology Impression Chest X-Ray 03/04/25 14:02 IMPRESSION: Lungs appear clear of acute disease. No pleural effusion or pneumothorax is noted. The cardiomediastinal silhouette is within the normal range. Left glenohumeral joint degenerative changes are noted. Degenerative changes of the visualized spine are also seen. No acute osseous process is seen. Reading Location: [place] [address] Chest CTA 03/04/25 15:06 IMPRESSION: No acute pulmonary emboli. No focal consolidations. Reading Location: [id number] 03/05/25 1325 <Electronically signed by Haritha Hernandez MD> Cosigner Signature (if applicable): CC: Dr. Hamilton Corral DO; Dr. Eric Odom MD~ Signed [facility] Work Phone: 1(180) 785-121807-01-2025 Progress note Author Sam Cuellar [facility] Note Date/Time March 05, 2025 11:49 am [facility] Medical Records Department [address] [place] [address] Progress Note - Hospitalist 03/05/25 0809 MR#: [id number] Acct: [id number] Name: ARGELIA COPELAND Rep #:[id number] : 1970 54 From: Sam Merritt PCP: Dr. Eric Odom MD Status:ADM I N Location: [place] [address] Reason for Visit Reason for Visit: Diagnoses Non-ST elevation (NSTEMI) myocardial infarction (03/04/25) Objective Data Objective Data Vital Signs: Vital Signs Temp Pulse Resp BP Pulse Ox O2 Del Method 97.8 F 67 16 133/60 H 94 Room Air 03/05/25 04:30 03/05/25 04:30 03/05/25 04:30 03/05/25 04:30 03/05/25 04:30 03/05/25 08:00 Oxygen Delivery Method Room Air Weight: 380 lb 8.285 oz Body Mass Index (BMI) 46.3 Intake & Output: Intake and Output for Last 24 Hours 03/03/25 03/04/25 03/05/25 23:59 23:59 23:59 Intake Total 1061.67 / 1301.67 335.4 / 335.4 Balance 1061.67 / 1301.67 335.4 / 335.4 Lab / Micro Data 03/05/25 05:45 03/05/25 05:45 Labs: Laboratory Results - last 24 hr 03/04/25 13:40: WBC 7.3, RBC 5.30, Hgb 16.1, Hct 45.7, MCV 86.2, MCH 30.4, MCHC 35.2, RDW Std Deviation 41.0, RDW Coeff of Sandy 13.2, Plt Count 322, MPV 10.5, Immature Gran % (Auto) 0.600, Neut % (Auto) 69.0, Lymph % (Auto) 22.4, [place] % (Auto) 5.5, Eos % (Auto) 1.4, Baso % (Auto) 1.1 H, Absolute Neuts (auto) 5.0, Absolute Lymphs (auto) 1.63, Nucleated RBC % 0, PT 13.4, INR 1.0, APTT 23.0 L, D-Dimer Quant (PE/DVT) 0.59 H*, 06/30/25 15:30: Sodium 136, Potassium 4.0, Chloride 102, Carbon Dioxide 22.5, Anion Gap 11, BUN 11, Creatinine 0.95, Estim Creat Clear Calc 151.76, Est GFR (MDRD) Non-Af 95, BUN/Creatinine Ratio 11.3, Glucose 98, Hemoglobin A1c 5.9 H, Calcium 8.4, Troponin T High Sens 34 H, TSH 1.510 03/04/25 18:03: Troponin T High Sens 41 H D 03/04/25 19:48: Troponin T Hi Sens 2 Hr 31 H 03/04/25 21:53: APTT 24.1, Troponin T Hi Sens 4Hr 23 H 03/05/25 05:45: WBC 8.6, RBC 5.14, Hgb 15.4, Hct 45.3, MCV 88.1, MCH 30.0, MCHC 34.0, RDW Std Deviation 42.7, RDW Coeff of Sandy 13.2, Plt Count 325, MPV 10.0, APTT 25.8, Sodium 139, Potassium 4.3, Chloride 104, Carbon Dioxide 23.1, Anion Gap 13, BUN 13, Creatinine 1.00, Estim Creat Clear Calc 142.99, Est GFR (MDRD) Non-Af 89, BUN/Creatinine Ratio 12.6, Glucose 101 H, Calcium 9.2, Triglycerides 345 H, Cholesterol 228 H, LDL Cholesterol, Calc 122, VLDL Cholesterol 69 H, HDL Cholesterol 37 L, Cholesterol/HDL Ratio 6.16 Radiography Diagnostic Testing: Radiology Impression Chest X-Ray 03/04/25 14:02 IMPRESSION: Lungs appear clear of acute disease. No pleural effusion or pneumothorax is noted. The cardiomediastinal silhouette is within the normal range. Left glenohumeral joint degenerative changes are noted. Degenerative changes of the visualized spine are also seen. No acute osseous process is seen. Reading Location: [facility] Chest CTA 03/04/25 15:06 IMPRESSION: No acute pulmonary emboli. No focal consolidations. Reading Location: [facility] Physical Exam Narrative Seen and examined. History taken from the patient. History of NV in 2019 with LAD stent in [facility]. At this time he complained of left lower scapular pain with radiation to left shoulder without related to activity or exertion for last several days. No precordial chest pain. He felt similar characteristics of pain when he had NV in 2009. No significant associated with shortness of breath Physical exam General: Alert, Oriented x3, Cooperative. Morbid obesity BMI 46.3 kg/m? HEENT: Atraumatic, PERRLA, EOMI, Normocephalic. Oral: No Gingival or Mucosal Lesions/ Ulcerations Neck: Supple, No JVD, Negative Carotid Bruits Chest wall/Lungs: Air entry diminished in bilateral lung bases. No crepitation/rhonchi Cardiovascular: Regular rate and rhythm, Normal S1,S2, No M/G/R Abdomen: Bowel Sounds Present, Soft, Non Tender, Non-Distended : No dysuria. No renal angle tenderness. No suprapubic tenderness. Extremities: No edema, Capillary Refill Less than 3 Seconds Skin: No rashes, No breakdown Musculoskeletal: No Tenderness to Palpation of Joints or Extremities. ROM intact Neurological: Cranial nerves II-XII grossly intact, DTR 2+/4. No acute focal neurological deficit. Psych/Mental Status: Normal Affect, Appropriate. Assessment & Plan Assessment/Plan (1) Non-ST elevation NV (NSTEMI): PLAN: Plan Patient is a 54-year-old male who presented to [facility] ED on 03/04/2025 with chest pain. 1. NSTEMI; history of CAD with stenting, hypertension, hyperlipidemia ? Admit under inpatient status to PCU. Cardiology consulted. High suspicion for NSTEMI type I given prior history of CAD with stenting and typical chest pain with improvement with rest. EKG with no ischemic changes noted. 03/05: Serial troponins 41, 31 and 23. Fasting profile TG 345, TC 228, LDL 122, VLDL 69, HDL 37. A1c 5.9%. Customer Quality Engineer recommended to start heparin drip. N.p.o. plan for left heart cath tomorrow. 2D echo is ordered. Continue hold ifheart rate less than 60/min and if persistently low between 60-70/m, can decrease the dose to 25 mg twice daily in consultation his PCP, amlodipine. Hold losartan for cardiac cath. 2. Chronic low back pain with radiculopathy ? Patient does report taking ibuprofen 800 mg frequently for this, which could contribute to NSTEMI as above. Hold NSAIDs going forward. Continue home duloxetine. 3. Class III obesity ? BMI 46 on admit. Encouraged lifestyle modifications. 4. Marijuana use ? Reports occasional use. Discussed cessation on discharge. DVT prophylaxis: Not indicated, on heparin drip CODE STATUS: Full code, verified Expected disposition: TBD 03/04/25 13:40: WBC 7.3, RBC 5.30, Hgb 16.1, Hct 45.7, MCV 86.2, MCH 30.4, MCHC 35.2, RDW Std Deviation 41.0, RDW Coeff of Sandy 13.2, Plt Count 322, MPV 10.5, Immature Gran % (Auto) 0.600, Neut % (Auto) 69.0, Lymph % (Auto) 22.4, [place] % (Auto) 5.5, Eos % (Auto) 1.4, Baso % (Auto) 1.1 H, Absolute Neuts (auto) 5.0, Absolute Lymphs (auto) 1.63, Nucleated RBC % 0, PT 13.4, INR 1.0, APTT 23.0 L, D-Dimer Quant (PE/DVT) 0.59 H*, 03/04/25 15:30: Sodium 136, Potassium 4.0, Chloride 102, Carbon Dioxide 22.5, Anion Gap 11, BUN 11, Creatinine 0.95, Estim Creat Clear Calc 151.76, Est GFR (MDRD) Non-Af 95, BUN/Creatinine Ratio 11.3, Glucose 98, Hemoglobin A1c 5.9 H, Calcium 8.4, Troponin T High Sens 34 H, TSH 1.510 03/04/25 18:03: Troponin T High Sens 41 H D 03/04/25 19:48: Troponin T Hi Sens 2 Hr 31 H 03/04/25 21:53: APTT 24.1, Troponin T Hi Sens 4Hr 23 H 03/05/25 05:45: WBC 8.6, RBC 5.14, Hgb 15.4, Hct 45.3, MCV 88.1, MCH 30.0, MCHC 34.0, RDW Std Deviation 42.7, RDW Coeff of Sandy 13.2, Plt Count 325, MPV 10.0, APTT 25.8, Sodium 139, Potassium 4.3, Chloride 104, Carbon Dioxide 23.1, Anion Gap 13, BUN 13, Creatinine 1.00, Estim Creat Clear Calc 142.99, Est GFR (MDRD) Non-Af 89, BUN/Creatinine Ratio 12.6, Glucose 101 H, Calcium 9.2, Triglycerides 345 H, Cholesterol 228 H, LDL Cholesterol, Calc 122, VLDL Cholesterol 69 H, HDL Cholesterol 37 L, Cholesterol/HDL Ratio 6.16 Charges/Coding Visit Charges Inpatient E&M: 36416 Subs Hosp L2 03/05/25 1149 <Electronically signed by Sam Cuellar MD> Cosigner Signature (if applicable): CC: ~ Signed [facility] Work Phone: [phone] Consult note [facility] Medical Records Department [address] [place] [address] Consultation - Cardiology 03/05/25 1320 MR#: [id number] Acct: [id number] Name: ARGELIA COPELAND Rep #:[id number] : 1970 54 From: Haritha Hernandez MD PCP: Dr. Eric Odom MD Status:ADM I N Location: [place] [address] Assessment & Plan Assessment/Plan (1) History of percutaneous transluminal coronary angioplasty: (2) History of lateral wall myocardial infarction: (3) Tobacco use disorder: (4) HLD (hyperlipidemia): (5) Family history of ischemic heart disease: (6) Stented coronary artery: PLAN: 54-year-old patient with known history of CAD with prior PCI and stent in 2008 to the proximal ramus artery. He does not follow-up with cardiology and his presentation with having symptoms of back pain. Whichis chronic lower back pain and felt dizzy lightheaded whilehe was in the shower. Evaluated here by EKG which showed normal sinus rhythm through the ED and admitted for further cardiac evaluation. Also noted he had mild elevation of high sensitive troponin Patient uses marijuana. And has a history of lumbar radiculopathy. Cardiac care plan; Based on his clinical presentation and not being seen and followed by vp integrity since 2008 with a prior history of proximal ramus stent Recommended to admit to the hospital and to start medical treatment with heparinand aspirin Patient also declined to take any statin as he had history of myalgia with the statin. I recommended to evaluate him further by echocardiogram as well we will assess by cardiac catheterization to assess patency of the stent and evaluate for progression of CAD. Will discuss further plan based on his result of cardiac evaluation which will include echocardiogram and the cardiac catheterization/right radial artery approach Haritha Hernandez MD,[facility] HPI Consult Data Date of Consult: 03/05/25 HPI Narrative Reason for Consultation: CAD/non-STEMI HPI Narrative: ARGELIA COPELAND, is a 54 M who presents [facility] Medical History (Updated 03/04/25 @ 16:[address] Anselmo Rios, DO) Wears glasses Cancer Arthritis History of Holter monitoring Normal stress echocardiogram History of stress test Hypertension Cardiology follow-up encounter Anxiety Umbilical hernia Essential hypertension Wears contact lenses Depression History of steroid therapy Chronic pain Shortness of breath on exertion Former smoker Edema Myocardial infarct Hx of echocardiogram Back pain right elbow surgery History of lateral wall myocardial infarction (07/22/09) Atherosclerotic heart disease of [place] coronary artery without angina pectoris HTN (hypertension) Morbid obesity with BMI of 40.0-44.9, adult Tobacco use disorder HLD (hyperlipidemia) Family history of ischemic heart disease Home Medications ?Medication ?Instructions ?Recorded ?Last Taken ?Type aspirin 325 mg tablet 325 mg PO DAILY@0800 9 03/04/25 History metoprolol tartrate 25 mg tablet 25 mg PO BID 10/27/20 03/04/25 History multivitamin 1 tab PO DAILY 03/27/2102/04 History glucosamine HCl 1,500 mg tablet 1,000 mg PO DAILY 08/0503/04/25 History losartan 100 mg tablet 100 mg PO DAILY 11/17/21 History amlodipine 10 mg tablet (Norvasc) 10 mg PO DAILY 09/1203/04/25 History duloxetine 30 mg capsule,delayed 30 mg PO DAILY 03/04/25 History release (Cymbalta) ashwagandha root extract 500 mg 1,300 mg PO DAILY 09/0503/03/25 History capsule magnesium 200 mg tablet 400 mg PO DAILY 09/16/23 Cally palmer History coenzyme Q10 100 mg capsule (Co [...] Father , Age 57 of [place], had NV/CAD at age 39 CAD (coronary artery disease) Myocardial infarction Mother Hypertension Sister Hypertension Surgical History (Updated 03/04/25 @ 17:20 by Ingris Browning) History of coronary artery stent placement S/P umbilical hernia repair, follow-up exam Hx of surgical procedure History of surgery on arm History of dental surgery Stented coronary artery (07/22/09) Social History household members: other details: mother housing: house current occupational status: employed 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[employer] 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: Former smoker pack-years: 20 alcohol intake: never do you feel safe at home: Yes Physical Exam Cardio Cardio Narrative: Seen and evaluated at bedside along with the nursing staff The cardiac rhythm is sinus rhythm he is comfortable sitting in bed does not have any active chest pain symptoms mainly back pain Cardiac exam S1-S2 is regular Chest exam is clear auscultation bilateral Examination lower extremity no lower extremity edema. Risk Stratification Risk Stratification Applicable: No Objective Data Vital Signs: Vital Signs Temp Pulse Resp BP Pulse Ox O2 Del Method 97.6 F L 65 14 164/103 H 95 Room Air 03/05/25 10:36 03/05/25 10:38 03/05/25 10:36 03/05/25 10:36 03/05/25 10:36 03/05/25 10:36 Oxygen Delivery Method Room Air Weight: 380 lb 8.285 oz Body Mass Index (BMI) 46.3 Intake & Output: Intake and Output for Last 24 Hours 03/03/25 03/04/25 03/05/25 23:59 23:59 23:59 Intake Total 1061.67 / 1301.67 425.7 / 425.7 Balance 1061.67 / 1301.67 425.7 / 425.7 Lab / Micro Data 03/05/25 05:45 03/05/25 05:45 Labs: Laboratory Results - last 24 hr 03/04/25 13:40: WBC 7.3, RBC 5.30, Hgb 16.1, Hct 45.7, MCV 86.2, MCH 30.4, MCHC 35.2, RDW Std Deviation 41.0, RDW Coeff of Sandy 13.2, Plt Count 322, MPV 10.5, Immature Gran % (Auto) 0.600, Neut % (Auto) 69.0, Lymph % (Auto) 22.4, [place] % (Auto) 5.5, Eos % (Auto) 1.4, Baso % (Auto) 1.1 H, Absolute Neuts (auto) 5.0, Absolute Lymphs (auto) 1.63, Nucleated RBC % 0, PT 13.4, INR 1.0, APTT 23.0 L, D-Dimer Quant (PE/DVT) 0.59 H*, Sodium Cancelled, Potassium Cancelled, Chloride Cancelled, Carbon Dioxide Cancelled, Anion Gap Cancelled, BUN Cancelled, Creatinine Cancelled, Estim Creat Clear Calc Cancelled, Est GFR (MDRD) Non-Af Cancelled, BUN/Creatinine Ratio Cancelled, Glucose Cancelled, Calcium Cancel led,Troponin T High Sens Cancelled 03/04/25 15:30: Sodium 136, Potassium 4.0, Chloride 102, Carbon Dioxide 22.5, Anion Gap 11, BUN 11,Creatinine 0.95, Estim Creat Clear Calc 151.76, Est GFR (MDRD) Non-Af 95, BUN/Creatinine Ratio 11.3, Glucose 98, Hemoglobin A1c 5.9 H, Calcium 8.4, Troponin T High Sens 34 H, TSH 1.510 03/04/25 18:03: Troponin T High Sens 41 H D 03/04/25 19:48: Troponin T Hi Sens 2 Hr 31 H 03/04/25 21:53: APTT 24.1, Troponin T Hi Sens 4Hr 23 H 03/05/25 05:45: WBC 8.6, RBC 5.14, Hgb 15.4, Hct 45.3, MCV 88.1, MCH 30.0, MCHC 34.0, RDW Std Deviation 42.7, RDW Coeff of Sandy 13.2, Plt Count 325, MPV 10.0, APTT 25.8, Sodium 139, Potassium 4.3, Chloride 104, Carbon Dioxide 23.1, Anion Gap 13, BUN 13, Creatinine 1.00, Estim Creat Clear Calc 142.99, Est GFR (MDRD) Non-Af 89, BUN/Creatinine Ratio 12.6, Glucose 101 H, Calcium 9.2, Triglycerides 345H, Cholesterol 228 H, LDL Cholesterol, Calc 122, VLDL Cholesterol 69 H, HDL Cholesterol 37 L, Cholesterol/HDL Ratio 6.16 Cardiology Labs/Tests 03/04/25 13:40: WBC 7.3, RBC 5.30, Hgb 16.1, Hct 45.7, MCV 86.2, MCH 30.4, MCHC 35.2, Plt Count 322, MPV 10.5, Immature Gran % (Auto) 0.600, Neut % (Auto) 69.0,Lymph % (Auto) 22.4, [place] % (Auto) 5.5,Eos % (Auto) 1.4, Baso % (Auto) 1.1 H, Absolute Neuts (auto) 5.0, Nucleated RBC % 0, PT 13.4, INR 1.0, APTT 23.0 L, D-Dimer Quant (PE/DVT) 0.59 H*, Sodium Cancelled, Potassium Cancelled, Chloride Cancelled, Carbon Dioxide Cancelled, Anion Gap Cancelled, BUN Cancelled, Creatinine Cancelled, Est GFR (MDRD) Non-Af Cancelled, BUN/Creatinine Ratio Cancelled, Glucose Cancelled, Calcium Cancelled 03/04/25 15:30: Sodium 136, Potassium 4.0, Chloride 102, Carbon Dioxide 22.5, Anion Gap 11, BUN 11,Creatinine 0.95, Est GFR (MDRD) Non-Af 95, BUN/Creatinine Ratio 11.3, Glucose 98, Hemoglobin A1c 5.9 H, Calcium 8.4 03/04/25 21:53: APTT 24.1 03/05/25 05:45: WBC 8.6, RBC 5.14, Hgb 15.4, Hct 45.3, MCV 88.1, MCH 30.0, MCHC 34.0, Plt Count 325, MPV 10.0, APTT 25.8, Sodium 139, Potassium 4.3, Chloride 104, Carbon Dioxide 23.1, Anion Gap 13, BUN 13, Creatinine 1.00, Est GFR (MDRD) Non-Af 89, BUN/Creatinine Ratio 12.6, Glucose 101 H, Calcium 9.2, Triglycerides 345 H, Cholesterol 228 H, VLDL Cholesterol 69 H, HDL Cholesterol 37 L, Cholesterol/HDL Ratio 6.16 Rhythm: EKG: ECHO: Stress Test: Cardiac Cath: PCI: CT Surgery: Holter monitor: EPS: PPM: CXR: Chest CT Scan: Radiography Diagnostic Testing: Radiology Impression Chest X-Ray 03/04/25 14:02 IMPRESSION: Lungs appear clear of acute disease. No pleural effusion or pneumothorax is noted. The cardiomediastinal silhouette is within the normal range. Left glenohumeral joint degenerative changes are noted. Degenerative changes of the visualized spine are also seen. No acute osseous process is seen. Reading Location: [place] [address] Chest CTA 03/04/25 15:06 IMPRESSION: No acute pulmonary emboli. No focal consolidations. Reading Location: [facility] 03/05/25 1325 Cosigner Signature (if applicable): CC: Dr. Hamilton Corral DO; Dr. Eric Odom MD~ Signed [facility]07-01-2025 Progress note [facility] Medical Records Department [address] [place] [address] Progress Note - Hospitalist 03/05/25 0809 MR#: [id number] Acct: [id number] Name: ARGELIA COPELAND Rep #:[id number] : 1970 54 From: Sam Merritt PCP: Dr. Eric Odom MD Status:ADM I N Location: [place] [address] Reason for Visit Reason for Visit: Diagnoses Non-ST elevation (NSTEMI) myocardial infarction (03/04/25) Objective Data Objective Data Vital Signs: Vital Signs Temp Pulse Resp BP Pulse Ox O2 Del Method 97.8 F 67 16 133/60 H 94 Room Air 03/05/25 04:30 03/05/25 04:30 03/05/25 04:30 03/05/25 04:30 03/05/25 04:30 03/05/25 08:00 Oxygen Delivery Method Room Air Weight: 380 lb 8.285 oz Body Mass Index (BMI) 46.3 Intake & Output: Intake and Output for Last 24 Hours 03/03/25 03/04/25 03/05/25 23:59 23:59 23:59 Intake Total 1061.67 / 1301.67 335.4 / 335.4 Balance 1061.67 / 1301.67 335.4 / 335.4 Lab / Micro Data 03/05/25 05:45 03/05/25 05:45 Labs: Laboratory Results - last 24 hr 03/04/25 13:40: WBC 7.3, RBC 5.30, Hgb 16.1, Hct 45.7, MCV 86.2, MCH 30.4, MCHC 35.2, RDW Std Deviation 41.0, RDW Coeff of Sandy 13.2, Plt Count 322, MPV 10.5, Immature Gran % (Auto) 0.600, Neut % (Auto) 69.0, Lymph % (Auto) 22.4, [place] % (Auto) 5.5, Eos % (Auto) 1.4, Baso % (Auto) 1.1 H, Absolute Neuts (auto) 5.0, Absolute Lymphs (auto) 1.63, Nucleated RBC % 0, PT 13.4, INR 1.0, APTT 23.0 L, D-Dimer Quant (PE/DVT) 0.59 H*, 03/04/25 15:30: Sodium 136, Potassium 4.0, Chloride 102, Carbon Dioxide 22.5, Anion Gap 11, BUN 11,Creatinine 0.95, Estim Creat Clear Calc 151.76, Est GFR (MDRD) Non-Af 95, BUN/Creatinine Ratio 11.3, Glucose 98, Hemoglobin A1c 5.9 H, Calcium 8.4, Troponin T High Sens 34 H, TSH 1.510 03/04/25 18:03: Troponin T High Sens 41 H D 03/04/25 19:48: Troponin T Hi Sens 2 Hr 31 H 03/04/25 21:53: APTT 24.1, Troponin T Hi Sens 4Hr 23 H 03/05/25 05:45: WBC 8.6, RBC 5.14, Hgb 15.4, Hct 45.3, MCV 88.1, MCH 30.0, MCHC 34.0, RDW Std Deviation 42.7, RDW Coeff of Sandy 13.2, Plt Count 325, MPV 10.0, APTT 25.8, Sodium 139, Potassium 4.3, Chloride 104, Carbon Dioxide 23.1, Anion Gap 13, BUN 13, Creatinine 1.00, Estim Creat Clear Calc 142.99, Est GFR (MDRD) Non-Af 89, BUN/Creatinine Ratio 12.6, Glucose 101 H, Calcium 9.2, Triglycerides 345H, Cholesterol 228 H, LDL Cholesterol, Calc 122, VLDL Cholesterol 69 H, HDL Cholesterol 37 L, Cholesterol/HDL Ratio 6.16 Radiography Diagnostic Testing: Radiology Impression Chest X-Ray 03/04/25 14:02 IMPRESSION: Lungs appear clear of acute disease. No pleural effusion or pneumothorax is noted. The cardiomediastinal silhouette is within the normal range. Left glenohumeral joint degenerative changes are noted. Degenerative changes of the visualized spine are also seen. No acute osseous process is seen. Reading Location: [place] [address] Chest CTA 03/04/25 15:06 IMPRESSION: No acute pulmonary emboli. No focal consolidations. Reading Location: [facility] Physical Exam Narrative Seen and examined. History taken from the patient. History of NV in 2019 with LAD stent in [facility]. At this time he complained of left lower scapular pain with radiation to left shoulder without related to activity or exertion for last several days. No precordial chest pain. He felt similar characteristics of pain when he had NV in 2009. No significant associated with shortness of breath Physical exam General: Alert, Oriented x3, Cooperative. Morbid obesity BMI 46.3 kg/m? HEENT: Atraumatic, PERRLA, EOMI, Normocephalic. Oral: No Gingival or Mucosal Lesions/ Ulcerations Neck: Supple, No JVD, Negative Carotid Bruits Chest wall/Lungs: Air entry diminished in bilateral lung bases. No crepitation/rhonchi Cardiovascular: Regular rate and rhythm, Normal S1,S2, No M/G/R Abdomen: Bowel Sounds Present, Soft, Non Tender, Non-Distended : No dysuria. No renal angle tenderness. No suprapubic tenderness. Extremities: No edema, Capillary Refill Less than 3 Seconds Skin: No rashes, No breakdown Musculoskeletal: No Tenderness to Palpation of Joints or Extremities. ROM intact Neurological: Cranial nerves II-XII grossly intact, DTR 2+/4. No acute focal neurological deficit. Psych/Mental Status: Normal Affect, Appropriate. Assessment & Plan Assessment/Plan (1) Non-ST elevation NV (NSTEMI): PLAN: Plan Patient is a 54-year-old male who presented to [facility] ED on 03/04/2025 with chest pain. 1. NSTEMI; history of CAD with stenting, hypertension, hyperlipidemia ? Admit under inpatient status to PCU. Cardiology consulted. High suspicion for NSTEMI type I givenprior history of CAD with stenting and typical chest pain with improvement with rest. EKG with no ischemic changes noted. 03/05: Serial troponins 41, 31 and 23. Fasting profile TG 345, TC 228, LDL 122, VLDL 69, HDL 37. A1c 5.9%. Customer Quality Engineer recommended to start heparin drip. N.p.o. plan for left heart cath tomorrow. 2D echo is ordered. Continue hold ifheart rate less than 60/min and if persistently low between 60-70/m,can decrease the dose to 25 mg twice daily in consultation his PCP, amlodipine. Hold losartan for cardiac cath. 2. Chronic low back pain with radiculopathy ? Patient does report taking ibuprofen 800 mg frequently for this, which could contribute to NSTEMIas above. Hold NSAIDs going forward. Continue home duloxetine. 3. Class III obesity ? BMI 46 on admit. Encouraged lifestyle modifications. 4. Marijuana use ? Reports occasional use. Discussed cessation on discharge. DVT prophylaxis: Not indicated, on heparin drip CODE STATUS: Full code, verified Expected disposition: [facility] [place] 03/04/25 13:40: WBC 7.3, RBC 5.30, Hgb 16.1, Hct 45.7, MCV 86.2, MCH 30.4, MCHC 35.2, RDW Std Deviation 41.0, RDW Coeff of Sandy 13.2, Plt Count 322, MPV 10.5, Immature Gran % (Auto) 0.600, Neut % (Auto) 69.0, Lymph % (Auto) 22.4, [place] % (Auto) 5.5, Eos % (Auto) 1.4, Baso % (Auto) 1.1 H, Absolute Neuts (auto) 5.0, Absolute Lymphs (auto) 1.63, Nucleated RBC % 0, PT 13.4, INR 1.0, APTT 23.0 L, D-Dimer Quant (PE/DVT) 0.59 H*, 03/04/25 15:30: Sodium 136, Potassium 4.0, Chloride 102, Carbon Dioxide 22.5, Anion Gap 11, BUN 11,Creatinine 0.95, Estim Creat Clear Calc 151.76, Est GFR (MDRD) Non-Af 95, BUN/Creatinine Ratio 11.3, Glucose 98, Hemoglobin A1c 5.9 H, Calcium 8.4, Troponin T High Sens 34 H, TSH 1.510 03/04/25 18:03: Troponin T High Sens 41 H D 03/04/25 19:48: Troponin T Hi Sens 2 Hr 31 H 03/04/25 21:53: APTT 24.1, Troponin T Hi Sens 4Hr 23 H 03/05/25 05:45: WBC 8.6, RBC 5.14, Hgb 15.4, Hct 45.3, MCV 88.1, MCH 30.0, MCHC 34.0, RDW Std Deviation 42.7, RDW Coeff of Sandy 13.2, Plt Count 325, MPV 10.0, APTT 25.8, Sodium 139, Potassium 4.3, Chloride 104, Carbon Dioxide 23.1, Anion Gap 13, BUN 13, Creatinine 1.00, Estim Creat Clear Calc 142.99, Est GFR (MDRD) Non-Af 89, BUN/Creatinine Ratio 12.6, Glucose 101 H, Calcium 9.2, Triglycerides 345H, Cholesterol 228 H, LDL Cholesterol, Calc 122, VLDL Cholesterol 69 H, HDL Cholesterol 37 L, Cholesterol/HDL Ratio 6.16 Charges/Coding Visit Charges Inpatient E&M: 18197 Subs Hosp L2 03/05/25 1149 Cosigner Signature (if applicable): CC: ~ Signed [facility]06-30-2025 History and physical note Author Hamilton Corral [facility] Note Date/Time March 04, 2025 5:27 pm [facility] Medical Records Department [address] [place] [address] H&P Exam - Hospitalist 03/04/25 1628 MR#: [id number] Acct: [id number] Name: ARGELIA COPELAND Rep #:[id number] : 1970 54 From: Hamilton stern DO PCP: Dr. Eric Odom MD Status:ADM I N Location: [place] [address] HPI - General General Date of Admission: 03/04/25 Date of Service: 03/04/25 Chief Complaint: Chest pain HPI Narrative ARGELIA COPELAND, is a 54 M who presented to [facility] ED on 03/04/2025 with chest pain. Patient has history of CAD with stenting back and 2008. Had stent x 1 placed at that time. He notably was only 38 years old then. Patient reports no further cardiac issues since then but importantly he does not have a regular doctor or medical insurance so he has not had medical follow-up in several years. States that he had chest discomfort now starting 4 to 5 days ago that worsened significantly over the past day or so. The chest pain radiates to in between his shoulder blades. He notes that it is similar tothe pain he had back in 2008. In the ED today he was hemodynamically stable on room air at rest. CBC and BMP were benign. D-dimer was mildly elevated so CTA chest was obtained which showed no acute PE and no focal consolidations, although it notably did call extensive coronary atherosclerosis. EKG showed normal sinus rhythm with no ischemic changes. However, initial troponin was elevated at 34. Patient was given nitro and did report improvement with his chest pain. Case was discussed with cardiology who recommended starting a heparin drip and admission for suspected NSTEMI type I with plan for left heart catheterization tomorrow. Hospitalist was then contacted for admission. I saw the patient at bedside in the ED. Patient was pleasant and sitting back comfortably in bed, conversing normally and in no acute distress. Stated that his chest pain was moderately improved from earlier today. Reported mild chest discomfort but the back pain was gone at this time. Does report having an infection that kept him in bed for 2 to 3 days shortly before the chest pain began. His main symptoms were URI symptoms and fatigue with bodyaches. Patientis a former smoker. He does report using marijuana occasionally. He denies anyother acute concerns currently. Will be admitted for further management. [facility] Medical History Wears glasses Cancer Arthritis History [...] myocardial infarction (07/22/09) Atherosclerotic heart disease of [place] coronary artery without angina pectoris HTN (hypertension) Morbid obesity with BMI of 40.0-44.9, adult Tobacco use disorder HLD (hyperlipidemia) Family history of ischemic heart disease Home Medications ?Medication ?Instructions ?Recorded ?Last Taken ?Type aspirin 325 mg tablet 325 mg PO DAILY@0800 9 03/04/25 History metoprolol tartrate 25 mg tablet 25 mg PO BID 10/27/20 03/04/25 History multivitamin 1 tab PO DAILY 03/27/2102/04 History glucosamine HCl 1,500 mg tablet 1,000 mg PO DAILY 08/0503/04/25 History losartan 100 mg tablet 100 mg PO DAILY 11/17/21 History amlodipine 10 mg tablet (Norvasc) 10 mg PO DAILY 09/1203/04/25 History duloxetine 30 mg capsule,delayed 30 mg PO DAILY 03/04/25 History release (Cymbalta) ashwagandha root extract 500 [...] Father , Age 57 of [place], had NV/CAD at age 39 CAD (coronary artery disease) Myocardial infarction Mother Hypertension Sister Hypertension Surgical History S/P umbilical hernia repair, follow-up exam Hx of surgical procedure History of surgery on arm History of dental surgery Stented coronary artery (07/22/09) Social History household members: other details: mother housing: house current occupational status: employed 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[employer] 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: Former smoker pack-years: 20 alcohol intake: never do you feel safe at home: Yes ROS Constitutional Constitutional: Denies chills, fatigue, fever(s) or weakness Cardiovascular Cardiovascular: Reports chest pain; Denies dyspnea on exertion, edema, lightheadedness or palpitations Respiratory/Chest Respiratory/Chest: Denies cough, shortness of breath at rest, shortness of breath with exertion or wheezing Gastrointestinal Gastrointestinal: Denies abdominal pain, constipation, diarrhea, nausea or vomiting Genitourinary Genitourinary: Denies dysuria Musculoskeletal Musculoskeletal: Reports back pain; Denies arthralgias or myalgias Neurologic Neurologic: Denies dizziness, focal weakness or headache(s) Vital Signs Vital Signs Vital Signs: 03/04/25 13:30 03/04/25 14:00 03/04/25 [...] 103 Pulse Ox 98 Oxygen Delivery Method Weight Weight: 175.1 kg Body Mass Index (BMI) 47.0 Physical Exam Const alert, oriented x3 and no apparent distress Constitutional Narrative: Pleasant middle-age male, class III obesity, facial flushing noted, otherwise sitting back comfortably in bed, conversing normally, in no acute distress. General Appearance: cooperative and comfortable HEENT normocephalic, head/scalp atraumatic, hearing grossly normal bilaterally, nasal mucous membranes and turbinates normal and moist oral mucous membranes Eyes PERRL, EOMs intact bilaterally and conjunctivae normal Neck full ROM Chest inspection of chest normal Resp normal respiratory effort, normal air movement, no use of accessory muscles and clear to auscultation bilaterally Cardio regular rate, regular rhythm, no murmurs and peripheral pulses 2+ throughout GI normal to inspection, nondistended, normoactive bowel sounds, soft to palpation,non-tender and non-distended Back/Spine normal ROM Extremity normal to inspection, full ROM and no pedal edema Skin no rashes or lesions noted Neuro moves all extremities and no focal motor deficits Speech: speech normal Motor Exam: strength 5/5 throughout Psych mental status grossly normal Results Lab / Micro Data 03/04/25 13:40 03/04/25 15:30 Labs: Laboratory Results - last 24 hr 03/04/25 13:40: WBC 7.3, RBC 5.30, Hgb 16.1, Hct 45.7, MCV 86.2, MCH 30.4, MCHC 35.2, RDW Std Deviation 41.0, RDW Coeff of Sandy 13.2, Plt Count 322, MPV 10.5, Immature Gran % (Auto) 0.600, Neut % (Auto) 69.0, Lymph % (Auto) 22.4, [place] % (Auto) 5.5, Eos % (Auto) 1.4, Baso % (Auto) 1.1 H, Absolute Neuts (auto) 5.0, Absolute Lymphs (auto) 1.63, Nucleated RBC % 0, D-Dimer Quant (PE/DVT) 0.59 H*, Sodium Cancelled, Potassium Cancelled, Chloride Cancelled, Carbon Dioxide Cancelled, Anion Gap Cancelled, BUN Cancelled, Creatinine Cancelled, Estim CreatClear Calc Cancelled, Est GFR (MDRD) Non-Af Cancelled, BUN/Creatinine Ratio Cancelled, Glucose Cancelled, Calcium Cancelled, Troponin T High Sens Cancelled 03/04/25 15:30: Sodium 136, Potassium 4.0, Chloride 102, Carbon Dioxide 22.5, Anion Gap 11, BUN 11, Creatinine 0.95, Estim Creat Clear Calc 151.76, Est GFR (MDRD) Non-Af 95, BUN/Creatinine Ratio 11.3, Glucose 98, Calcium 8.4, Troponin THigh Sens 34 H Imaging Radiology Impression Chest X-Ray 03/04/25 14:02 IMPRESSION: Lungs appear clear of acute disease. No pleural effusion or pneumothorax is noted. The cardiomediastinal silhouette is within the normal range. Left glenohumeral joint degenerative changes are noted. Degenerative changes of the visualized spine are also seen. No acute osseous process is seen. Reading Location: [facility] Chest CTA 03/04/25 15:06 IMPRESSION: No acute pulmonary emboli. No focal consolidations. Reading Location: [facility] Assessment & Plan Assessment/Plan (1) Non-ST elevation NV (NSTEMI): PLAN: Plan Patient is a 54-year-old male who presented to [facility] ED on 03/04/2025 with chest pain. 1. NSTEMI; history of CAD with stenting, hypertension, hyperlipidemia ? Admit under inpatient status to PCU. Cardiology consulted. High suspicion for NSTEMI type I given prior history of CAD with stenting and typical chest pain with improvement with rest. Initial troponin 34, repeat pending. EKG withno ischemic changes noted. Per cardiology recs, will treat with heparin drip atthis time. N.p.o. at midnight with plan for left heart catheterization tomorrow. Echocardiogram ordered. Lipid panel, A1c and TSH ordered as well. Okay to continue home Lopressor and amlodipine. Will hold home losartan for cath tomorrow, then okay to resume after that. 2. Chronic low back pain with radiculopathy ? Patient does report taking ibuprofen 800 mg frequently for this, which could contribute to NSTEMI as above. Hold NSAIDs going forward. Continue home duloxetine. 3. Class III obesity ? BMI 46 on admit. Encouraged lifestyle modifications. 4. Marijuana use ? Reports occasional use. Discussed cessation on discharge. DVT prophylaxis: Not indicated, on heparin drip CODE STATUS: Full code, verified Expected disposition: TBD Total clinical time spent by myself addressing the patient's medical issues, reviewing all the data, and collaborating with patient's care team: 75 minutes. Charges/Coding Visit Charges Inpatient E&M: 49464 Init Hosp L3 03/04/25 1727 <Electronically signed by Hamilton Corral DO> Cosigner Signature (if applicable): CC: Dr. Hamilton Corral DO; Dr. Eric Odom MD~ Signed [facility] Work Phone: 1(183) 420-208106-30-2025 Discharge summary Author Anselmo Rios [facility] Note Date/Time March 04, 2025 4:39 pm [facility] Medical Records Department [address] [place] [address] Emergency Department Summary 03/04/25 MR#: [id number] Acct: [id number] Name: ARGELIA COPELAND Rep #:[id number] : 1970 54 From: Anselmo Rios DO [...] use but denies any IV drug use. [facility] Medical History Wears glasses Cancer Arthritis History [...] myocardial infarction (07/22/09) Atherosclerotic heart disease of [place] coronary artery without angina pectoris HTN (hypertension) Morbid obesity with BMI of 40.0-44.9, adult Tobacco use disorder HLD (hyperlipidemia) Family history of ischemic heart disease Home Medications ?Medication ?Instructions ?Recorded ?Last Taken ?Type aspirin 325 mg tablet 325 mg PO DAILY@0800 9 03/04/25 History metoprolol tartrate 25 mg tablet 25 mg PO BID 10/27/20 03/04/25 History multivitamin 1 tab PO DAILY 03/27/2102/04 History glucosamine HCl 1,500 mg tablet 1,000 mg PO DAILY 08/0503/04/25 History losartan 100 mg tablet 100 mg PO DAILY 11/17/21 History amlodipine 10 mg tablet (Norvasc) 10 mg PO DAILY 09/1203/04/25 History duloxetine 30 mg capsule,delayed 30 mg PO DAILY 03/04/25 History release (Cymbalta) ashwagandha root extract 500 [...] Father , Age 57 of [place], had NV/CAD at age 39 CAD (coronary artery disease) Myocardial infarction Mother Hypertension Sister Hypertension Surgical History S/P umbilical hernia repair, follow-up exam Hx of surgical procedure History of surgery on arm History of dental surgery Stented coronary artery (07/22/09) Social History household members: other details: mother housing: house current occupational status: employed 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: Former smoker pack-years: 20 alcohol [...] follow commands knew that he was at [facility] year is 2024 Skin: Warm, dry, [...] consolidations noted. I reached out to on-call vp integrity Dr. Hernandez who is recommending place the [...] % (Auto) 69.0 Lymph % (Auto) 22.4 [place] % (Auto) 5.5 Eos % (Auto) 1.4 [...] acute osseous process is seen. Reading Location: [facility] Chest CTA 03/04/25 15:06 IMPRESSION: No acute pulmonary emboli. No focal consolidations. Reading Location: [id number] Discharge Plan Triage Chief Complaint: Chest Pain ED Provider: Anselmo Rios Dx/Rx/DC Orders Clinical Impression: Chest pain, Non-ST elevation NV (NSTEMI) Prescriptions: No Action metoprolol tartrate 25 [...] MD [Primary Care Provider] - Print Language: Burmese Disposition Disposition: Acute Care Hospital [facility] What to do if you have Problems For any increased pain, shortness of breath, bleeding, nausea or vomiting, chestpain, or any unexpected problems, contact your Primary Care Provider. Call [facility] ([phone]) or report to the closest Emergency Room. Call 911 if necessary. 03/04/25 1639 <Electronically signed by Anselmo Rios DO> Cosigner Signature (if applicable): CC: Dr. Eric Odom MD ~ Signed [facility] Work Phone: 1(163) 231-989806-30-2025 Evaluation note* Diagnosis Onset Date Resolution Status Admit Date Non-ST elevation NV (NSTEMI) acute March 04, 2025 4:31pm Family history of ischemic heart disease chronic March 04, 2025 4:31pm 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 22, 2009 chronic February 052024 4:31pm History of percutaneous transluminal coronary angioplasty chronic March 04, 2025 4:31pm HLD (hyperlipidemia) chronic March 04, 2025 4:31pm Stented coronary artery July 22, 2009 chr onic March 04, 2025 4:31pm Tobacco use disorder chronic March 04, 2025 4:31pm [facility] Work Phone: 1(993) 448-733506-30-2025 Evaluation note* Diagnosis Onset Date Resolution Status Admit Date Non-ST elevation NV (NSTEMI) acute March 04, 2025 4:31pm Family history of ischemic heart disease chronic March 04, 2025 4:31pm 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 22, 2009 chronic February 052024 4:31pm History of percutaneous transluminal coronary angioplasty chronic March 04, 2025 4:31pm HLD (hyperlipidemia) chronic March 04, 2025 4:31pm Stented coronary artery July 22, 2009 [facility] March 04, 2025 4:31pm Tobacco use disorder chronic March 04, 2025 4:31pm Orthostatic hypotension acute J 2024 1:57pm Atherosclerotic heart disease of [place] coronary artery without angina pectoris chronic March 12, 2025 1:57pm HLD (hyperlipidemia) chronic March 12, 2025 1:57pm Stented coronary artery July 22, 2009 [facility] March 12, 2025 1:57pm HTN (hypertension) inactive March 122024 1:57pm [facility] Work Phone: 1(248) 340-218406-30-2025 Evaluation note* Diagnosis Onset Date Resolution Status Admit Date Family history of ischemic heart disease chronic March 04, 2025 4:31pm 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 22, 2009 chronic February 052024 4:31pm History of percutaneous transluminal coronary angioplasty chronic March 04, 2025 4:31pm HLD (hyperlipidemia) chronic March 04, 2025 4:31pm Stented coronary artery July 22, 2009 [facility] March 04, 2025 4:31pm Tobacco use disorder chronic March 04, 2025 4:31pm Non-ST elevation NV (NSTEMI) inactiv e March 04, 2025 4:31pm Orthostatic hypotension acute J 2024 1:57pm Atherosclerotic heart disease of [place] coronary artery without angina pectoris chronic March 12, 2025 1:57pm HLD (hyperlipidemia) chronic March 12, 2025 1:57pm Stented coronary artery July 22, 2009 [facility] March 12, 2025 1:57pm HTN (hypertension) inactive March 122024 1:57[facility] Work Phone: 1(960) 993-762106-30-2025 Evaluation note* Diagnosis Onset Date Resolution Status Admit Date Family history of ischemic heart disease chronic March 04, 2025 4:31pm 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 22, 2009 chronic February 052024 4:31pm History of percutaneous transluminal coronary angioplasty chronic March 04, 2025 4:31pm HLD (hyperlipidemia) chronic March 04, 2025 4:31pm Stented coronary artery July 22, 2009 [facility] on March 04, 2025 4:31pm Tobacco use disorder chronic March 04, 2025 4:31pm Non-ST elevation NV (NSTEMI) inactiv e March 04, 2025 4:31pm Orthostatic hypotension acute J 2024 1:57pm Atherosclerotic heart disease of [place] coronary artery without angina pectoris chronic March 12, 2025 1:57pm HLD (hyperlipidemia) chronic March 12, 2025 1:57pm Stented coronary artery July 22, 2009 [facility] March 12, 2025 1:57pm HTN (hypertension) inactive March 122024 1:57pm ROGERS (dyspnea on exertion) acute March 26, 2025 7:51am Orthostatic hypotension acute J 2024 7:51am Palpitations acute March 26, 7:51am Atherosclerotic heart disease of [place] coronary artery without angina pectoris chronic March 26, 2025 7:51am HLD (hyperlipidemia) chronic March 26, 2025 7:51am Stented coronary artery July 22, 2009 [facility] on March 26, 2025 7:51am HTN (hypertension) inactive March 062024 7:51am [facility] Work Phone: [phone]) 812-219906-30-2025 Evaluation note* Diagnosis Onset Date Resolution Status Admit Date Family history of ischemic heart disease chronic March 04, 2025 4:31pm 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 22, 2009 chronic February 052024 4:31pm History of percutaneous transluminal coronary angioplasty chronic March 04, 2025 4:31pm HLD (hyperlipidemia) chronic March 04, 2025 4:31pm Stented coronary artery July 22, 2009 [facility] on March 04, 2025 4:31pm Tobacco use disorder chronic March 04, 2025 4:31pm Non-ST elevation NV (NSTEMI) inactiv e March 04, 2025 4:31pm Orthostatic hypotension acute J [id number] 1:57pm Atherosclerotic heart disease of [place] coronary artery without angina pectoris chronic March 12, 2025 1:57pm HLD (hyperlipidemia) chronic March 12, 2025 1:57pm Stented coronary artery July 22, 2009 [facility] March 12, 2025 1:57pm HTN (hypertension) inactive March 122024 1:57pm ROGERS (dyspnea on exertion) acute March 26, 2025 7:51am Palpitations acute March 26, 7:51am Atherosclerotic heart disease of [place] coronary artery without angina pectoris chronic March 26, 2025 7:51am HLD (hyperlipidemia) chronic March 26, 2025 7:51am Stented coronary artery July 22, 2009 [facility] March 26, 2025 7:51am HTN (hypertension) inactive March 062024 7:51am [facility] Work Phone: 1(433) 822-838106-30-2025 History and physical note [facility] Medical Records Department [address] [place] [address] H&P Exam - Hospitalist 03/04/25 1628 MR#: [id number] Acct: [id number] Name: ARGELIA COPELAND Rep #:[id number] : 1970 54 From: Hamilton stern DO PCP: Dr. Eric Odom MD Status:ADM I N Location: [place] [id number] HPI - General General Date of Admission: 03/04/25 Date of Service: 03/04/25 Chief Complaint: Chest pain HPI Narrative ARGELIA COPELAND, is a 54 M who presented to [facility] ED on 03/04/2025 with chest pain. Patient has history of CAD with stenting back and 2008. Had stent x 1 placed at that time. He notably was only 38 years old then. Patient reports no further cardiac issues since then but importantly he does not have a regular doctor or medical insurance so he has not had medical follow-up in several years. States that he had chest discomfort now starting 4 to 5 days ago that worsened significantly over the past day or so. The chest pain radiates to in between his shoulder blades. He notes that it is similar tothe pain he had back in 2008. In the ED today he was hemodynamically stable on room air at rest. CBC and BMP were benign. D-dimer was mildly elevated so CTA chest was obtained which showed no acute PE and no focal consolidations, although it notably did call extensive coronary atherosclerosis. EKG showed normal sinus rhythm with no ischemic changes. However, initial troponin was elevated at 34. Patient was given nitro and did report improvement with his chest pain. Case was discussed with cardiology who recommended starting a heparin drip and admission for suspected NSTEMI type I with plan for left heart catheterization tomorrow. Hospitalist was then contacted for admission. I saw the patient at bedside in the ED. Patient was pleasant and sitting back comfortably in bed, conversing normally and in no acute distress. Stated that his chest pain was moderately improved from earlier today. Reported mild chest discomfort but the back pain was gone at this time. Does reporthaving an infection that kept him in bed for 2 to 3 days shortly before the chest pain began. His main symptoms were URI symptoms and fatigue with bodyaches. Patientis a former smoker. He does report using marijuana occasionally. He denies anyother acute concerns currently. Will be admitted for further management. [facility] Medical History Wears glasses Cancer Arthritis History [...] myocardial infarction (07/22/09) Atherosclerotic heart disease of [place] coronary artery without angina pectoris HTN (hypertension) Morbid obesity with BMI of 40.0-44.9, adult Tobacco use disorder HLD (hyperlipidemia) Family history of ischemic heart disease Home Medications ?Medication ?Instructions ?Recorded ?Last Taken ?Type aspirin 325 mg tablet 325 mg PO DAILY@0800 9 03/04/25 History metoprolol tartrate 25 mg tablet 25 mg PO BID 10/27/20 03/04/25 History multivitamin 1 tab PO DAILY 03/27/2102/04 History glucosamine HCl 1,500 mg tablet 1,000 mg PO DAILY 08/0503/04/25 History losartan 100 mg tablet 100 mg PO DAILY 11/17/21 History amlodipine 10 mg tablet (Norvasc) 10 mg PO DAILY 09/1203/04/25 History duloxetine 30 mg capsule,delayed 30 mg PO DAILY 03/04/25 History release (Cymbalta) ashnellygandha root extract 500 mg 1,300 mg PO [...] Father , Age 57 of [place], had NV/CAD at age 39 CAD (coronary artery disease) Myocardial infarction Mother Hypertension Sister Hypertension Surgical History S/P umbilical hernia repair, follow-up exam Hx of surgical procedure History of surgery on arm History of dental surgery Stented coronary artery (07/22/09) Social History household members: other details: mother housing: house current occupational status: employed 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[employer] 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: Former smoker pack-years: 20 alcohol intake: never do you feel safe at home: Yes ROS Constitutional Constitutional: Denies chills, fatigue, fever(s) or weakness Cardiovascular Cardiovascular: Reports chest pain; Denies dyspnea on exertion, edema, lightheadedness or palpitations Respiratory/Chest Respiratory/Chest: Denies cough, shortness of breath at rest, shortness of breath with exertion or wheezing Gastrointestinal Gastrointestinal: Denies abdominal pain, constipation, diarrhea, nausea or vomiting Genitourinary Genitourinary: Denies dysuria Musculoskeletal Musculoskeletal: Reports back pain; Denies arthralgias or myalgias Neurologic Neurologic: Denies dizziness, focal weakness or headache(s) Vital Signs Vital Signs Vital Signs: 03/04/25 13:30 03/04/25 14:00 03/04/25 [...] 103 Pulse Ox 98 Oxygen Delivery Method Weight Weight: 175.1 kg Body Mass Index (BMI) 47.0 Physical Exam Const alert, oriented x3 and no apparent distress Constitutional Narrative: Pleasant middle-age male, class III obesity, facial flushing noted, otherwise sitting back comfortably in bed, conversing normally, in no acute distress. General Appearance: cooperative and comfortable HEENT normocephalic, head/scalp atraumatic, hearing grossly normal bilaterally, nasal mucous membranes and turbinates normal and moist oral mucous membranes Eyes PERRL, EOMs intact bilaterally and conjunctivae normal Neck full ROM Chest inspection of chest normal Resp normal respiratory effort, normal air movement, no use of accessory muscles and clear to auscultation bilaterally Cardio regular rate, regular rhythm, no murmurs and peripheral pulses 2+ throughout GI normal to inspection, nondistended, normoactive bowel sounds, soft to palpation,non-tender and non-distended Back/Spine normal ROM Extremity normal to inspection, full ROM and no pedal edema Skin no rashes or lesions noted Neuro moves all extremities and no focal motor deficits Speech: speech normal Motor Exam: strength 5/5 throughout Psych mental status grossly normal Results Lab / Micro Data 03/04/25 13:40 03/04/25 15:30 Labs: Laboratory Results - last 24 hr 03/04/25 13:40: WBC 7.3, RBC 5.30, Hgb 16.1, Hct 45.7, MCV 86.2, MCH 30.4, MCHC 35.2, RDW Std Deviation 41.0, RDW Coeff of [place] 13.2, Plt Count 322, MPV 10.5, Immature Gran % (Auto) 0.600, Neut % (Auto) 69.0, Lymph % (Auto) 22.4, [place] % (Auto) 5.5, Eos % (Auto) 1.4, Baso % (Auto) 1.1 H, Absolute Neuts (auto) 5.0, Absolute Lymphs (auto) 1.63, Nucleated RBC % 0, D-Dimer Quant (PE/DVT) 0.59 H*, Sodium Cancelled, Potassium Cancelled, Chloride Cancelled, Carbon Dioxide Cancelled, Anion Gap Cancelled,BUN Cancelled, Creatinine Cancelled, Estim CreatClear Calc Cancelled, Est GFR (MDRD) Non-Af Cancelled, BUN/Creatinine Ratio Cancelled, Glucose Cancelled, Calcium Cancelled, Troponin T High Sens Cancelled 03/04/25 15:30: Sodium 136, Potassium 4.0, Chloride 102, Carbon Dioxide 22.5, Anion Gap 11, BUN 11,Creatinine 0.95, Estim Creat Clear Calc 151.76, Est GFR (MDRD) Non-Af 95, BUN/Creatinine Ratio 11.3, Glucose 98, Calcium 8.4, Troponin THigh Sens 34 H Imaging Radiology Impression Chest X-Ray 03/04/25 14:02 IMPRESSION: Lungs appear clear of acute disease. No pleural effusion or pneumothorax is noted. The cardiomediastinal silhouette is within the normal range. Left glenohumeral joint degenerative changes are noted. Degenerative changes of the visualized spine are also seen. No acute osseous process is seen. Reading Location: [facility] Chest CTA 03/04/25 15:06 IMPRESSION: No acute pulmonary emboli. No focal consolidations. Reading Location: [facility] Assessment & Plan Assessment/Plan (1) Non-ST elevation NV (NSTEMI): PLAN: Plan Patient is a 54-year-old male who presented to [facility] ED on 03/04/2025 with chest pain. 1. NSTEMI; history of CAD with stenting, hypertension, hyperlipidemia ? Admit under inpatient status to PCU. Cardiology consulted. High suspicion for NSTEMI type I givenprior history of CAD with stenting and typical chest pain with improvement with rest. Initial troponin 34, repeat pending. EKG withno ischemic changes noted. Per cardiology recs, will treat with heparin drip atthis time. N.p.o. at midnight with plan for left heart catheterization tomorrow. Echocardiogram ordered. Lipid panel, A1c and TSH ordered as well. Okay to continue home Lopressor and amlodipine. Will hold home losartan for cath tomorrow, then okay to resume after that. 2. Chronic low back pain with radiculopathy ? Patient does report taking ibuprofen 800 mg frequently for this, which could contribute to NSTEMIas above. Hold NSAIDs going forward. Continue home duloxetine. 3. Class III obesity ? BMI 46 on admit. Encouraged lifestyle modifications. 4. Marijuana use ? Reports occasional use. Discussed cessation on discharge. DVT prophylaxis: Not indicated, on heparin drip CODE STATUS: Full code, verified Expected disposition: TBD Total clinical time spent by myself addressing the patient's medical issues, reviewing all the data, and collaborating with patient's care team: 75 minutes. Charges/Coding Visit Charges Inpatient E&M: 13549 Init Hosp L3 03/04/25 1727 Cosigner Signature (if applicable): CC: Dr. Hamilton Corral DO; Dr. Eric Odom MD~ Signed [facility]06-30-2025 Discharge summary [facility] Medical Records Department [address] [place] [address] Emergency Department Summary 03/04/25 MR#: [id number] Acct: [id number] Name: ARGELIA COPELAND Rep #:[id number] : 1970 54 From: Anselmo Rios DO [...] use but denies any IV drug use. [facility] Medical History Wears glasses Cancer Arthritis History [...] myocardial infarction (07/22/09) Atherosclerotic heart disease of [place] coronary artery without angina pectoris HTN (hypertension) Morbid obesity with BMI of 40.0-44.9, adult Tobacco use disorder HLD (hyperlipidemia) Family history of ischemic heart disease Home Medications ?Medication ?Instructions ?Recorded ?Last Taken ?Type aspirin 325 mg tablet 325 mg PO DAILY@0800 03/04/25 History metoprolol tartrate 25 mg tablet 25 mg PO BID 10/27/20 03/04/25 History multivitamin 1 tab PO DAILY 03/27/21 06/05/30 History glucosamine HCl 1,500 mg tablet 1,000 mg PO DAILY 08/0503/04/25 History losartan 100 mg tablet 100 mg PO DAILY 11/17/21 History amlodipine 10 mg tablet (Norvasc) 10 mg PO DAILY 09/1203/04/25 History duloxetine 30 mg capsule,delayed 30 mg PO DAILY 03/04/25 History release (Cymbalta) ashtrinidha root extract 500 mg 1,300 mg PO [...] Father , Age 57 of [place], had NV/CAD at age 39 CAD (coronary artery disease) Myocardial infarction Mother Hypertension Sister Hypertension Surgical History S/P umbilical hernia repair, follow-up exam Hx of surgical procedure History of surgery on arm History of dental surgery Stented coronary artery (07/22/09) Social History household members: other details: mother housing: house current occupational status: employed 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: Former smoker pack-years: 20 alcohol [...] follow commands knew that he was at [facility] year is 2024 Skin: Warm, dry, [...] pneumonia, pneumothorax, electrolyte abnormality, cardiac arrhythmia. Once w orkup is obtained reviewed he will be reevaluated. [...] some artifact noted. Patient's chest x-ray reviewed bymyself by radiology showed no acute cardiopulmonary processes. Patient CT of the chest reviewed showed no acute pulmonary emboli no focal consolidations noted. I reached out to on-call vp integrity Dr. Hernandez who is recommending place the patient on heparin and will plan for heart catheterization tomorrow. Discussed the case with hospitalist Dr. oCrral who accept the patient for admission. Heparin [...] % (Auto) 69.0 Lymph % (Auto) 22.4 [place] % (Auto) 5.5 Eos % (Auto) 1.4 [...] acute osseous process is seen. Reading Location: [facility] Chest CTA 03/04/25 15:06 IMPRESSION: No acute pulmonary emboli. No focal consolidations. Reading Location: [facility] Discharge Plan Triage Chief Complaint: Chest Pain ED Provider: Anselmo Rios Dx/Rx/DC Orders Clinical Impression: Chest pain, Non-ST elevation NV (NSTEMI) Prescriptions: No Action metoprolol tartrate 25 [...] MD [Primary Care Provider] - Print Language: Burmese Disposition Disposition: Acute Care Hospital [facility] What to do if you have Problems For any increased pain, shortness of breath, bleeding, nausea or vomiting, chestpain, or any unexpected problems, contact your Primary Care Provider. Call [facility] ([phone]) or report tothe closest Emergency Room. Call 911 if necessary. 03/04/25 1639 Cosigner Signature (if applicable): CC: Dr. Eric Odom MD ~ Signed [facility]06-30-2025 Radiology Diagnostic study note [facility] Imaging Services [address] [place] [address] CTA Chest W/WO Contrast MR#: [id number] Acct: [id number] Name: ARGELIA COPELAND Rep #: [id number] : 1970 M 54 From: Rahel Lopez MD PCP: Dr. Eric Odom MD Status: REG E R Study:CTA Chest W/WO Contrast Date of Exam: 03/04/25 Exam# [id number] Ordering Dr: Juno Rios DO PROCEDURE: CTA [...] pulmonary emboli. No focal consolidations. Reading Location: [id number] CC: Dr. Eric Odom MD; Dr. Anselmo Rios DO ~ [place]: Signed [facility]06-30-2025 Radiology Diagnostic study note [facility] Imaging Services [address], [place] [id number] Chest PA and Lateral MR#: [id number] Acct: [id number] Name: ARGELIA COPELAND Rep #: [id number] : 1970 M 54 From: Anuj Ross MD PCP: Dr. Eric Odom MD Status: PRE E R Study:Chest PA and Lateral Date of Exam: 03/04/25 Exam# [id number] Ordering Dr: Juno Rios DO PROCEDURE: CHEST PA AND LATERAL [...] acute osseous process is seen. Reading Location: [place] [address] CC: Dr. Eric Odom MD; Dr. Anselmo Rios DO ~ [place]: Signed [facility]06-30-2025 Discharge summary Author Anselmo Rios [facility] Note Date/Time March 04, 2025 4:39 pm [facility] Medical Records Department [address] [place] [address] Emergency Department Summary 03/04/25 MR#: [id number] Acct: [id number] Name: ARGELIA COPELAND Rep #:[id number] : 1970 54 From: Anselmo Rios DO [...] use but denies any IV drug use. [facility] Medical History Wears glasses Cancer Arthritis History [...] myocardial infarction (07/22/09) Atherosclerotic heart disease of [place] coronary artery without angina pectoris HTN (hypertension) Morbid obesity with BMI of 40.0-44.9, adult Tobacco use disorder HLD (hyperlipidemia) Family history of ischemic heart disease Home Medications ?Medication ?Instructions ?Recorded ?Last Taken ?Type aspirin 325 mg tablet 325 mg PO DAILY@0800 9 03/04/25 History metoprolol tartrate 25 mg tablet 25 mg PO BID 10/27/20 03/04/25 History multivitamin 1 tab PO DAILY 03/27/2102/04 History glucosamine HCl 1,500 mg tablet 1,000 mg PO DAILY 08/0503/04/25 History losartan 100 mg tablet 100 mg PO DAILY 11/17/21 History amlodipine 10 mg tablet (Norvasc) 10 mg PO DAILY 09/1203/04/25 History duloxetine 30 mg capsule,delayed 30 mg PO DAILY 03/04/25 History release (Cymbalta) ashwagandha root extract 500 [...] Father , Age 57 of [place], had NV/CAD at age 39 CAD (coronary artery disease) Myocardial infarction Mother Hypertension Sister Hypertension Surgical History S/P umbilical hernia repair, follow-up exam Hx of surgical procedure History of surgery on arm History of dental surgery Stented coronary artery (07/22/09) Social History household members: other details: mother housing: house current occupational status: employed 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: Former smoker pack-years: 20 alcohol [...] follow commands knew that he was at [facility] year is 2024 Skin: Warm, dry, [...] consolidations noted. I reached out to on-call vp integrity Dr. Hernandez who is recommending place the [...] % (Auto) 69.0 Lymph % (Auto) 22.4 [place] % (Auto) 5.5 Eos % (Auto) 1.4 [...] acute osseous process is seen. [facility] Chest CTA 03/04/25 15:06 IMPRESSION: No acute pulmonary emboli. No focal consolidations. Reading Location: [facility] Discharge Plan Triage Chief Complaint: Chest Pain ED Provider: Anselmo Rios Dx/Rx/DC Orders Clinical Impression: Chest pain, Non-ST elevation NV (NSTEMI) Prescriptions: No Action metoprolol tartrate 25 [...] MD [Primary Care Provider] - Print Language: Burmese Disposition Disposition: Acute Care Hospital [facility] What to do if you have Problems For any increased pain, shortness of breath, bleeding, nausea or vomiting, chestpain, or any unexpected problems, contact your Primary Care Provider. Call [facility] ([phone]) or report to the closest Emergency Room. Call 911 if necessary. 03/04/25 1639 <Electronically signed by Anselmo Rios DO> Cosigner Signature (if applicable): CC: Dr. Eric Odom MD ~ Signed [facility] Work Phone: [phone] 786-750404-10-2025 Discharge summary [facility] Medical Records Department [address] [place] [address] Emergency Department Summary 12/13/24 MR#: [id number] Acct: [id number] Name: ARGELIA COPELAND Rep #:[id number] : 1970 54 From: Wero ulloa DO [...] intact Psych: Cooperative, appropriate mood and affect [facility] Medical History Wears glasses Cancer Arthritis History [...] myocardial infarction (07/22/09) Atherosclerotic heart disease of [place] coronary artery without angina pectoris HTN (hypertension) [...] Father , Age 57 of [place], had NV/CAD at age 39 CAD (coronary artery disease) Myocardial infarction Mother Hypertension Sister Hypertension Surgical History S/P umbilical hernia repair, follow-up exam Hx of surgical procedure History of surgery on arm History of dental surgery Stented coronary artery (07/22/09) Social History household members: other details: mother housing: house current occupational status: 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 Call [facility] ([phone]) or report tothe closest Emergency Room. Call 911 if necessary. 12/13/24 0910 Cosigner Signature (if applicable): CC: Dr. Eric Odom MD ~ Signed [facility]11-17-2009 Evaluation note* Diagnosis Onset Date Resolution Status Atherosclerotic heart diseas e of [place] coronary artery without angina pectoris chronic HLD (hyperlipidemia) chronic HTN (hypertension) chronic Stented coronary artery July 22, 2009 [facility] Work Phone: Discharge summary Author Weroannabel NanceLexus [facility] Note Date/Time December 13, 2024 9:1 0am [facility] Medical Records Department [address] [place] [address] Emergency Department Summary 12/13/24 MR#: [id number] Acct: [id number] Name: ARGELIA COPELAND Rep #:[id number] : 1970 54 From: Wero ulloa DO [...] intact Psych: Cooperative, appropriate mood and affect [facility] Medical History Wears glasses Cancer Arthritis History [...] myocardial infarction (07/22/09) Atherosclerotic heart disease of [place] coronary artery without angina pectoris HTN (hypertension) [...] Father , Age 57 of [place], had NV/CAD at age 39 CAD (coronary artery disease) Myocardial infarction Mother Hypertension Sister Hypertension Surgical History S/P umbilical hernia repair, follow-up exam Hx of surgical procedure History of surgery on arm History of dental surgery Stented coronary artery (07/22/09) Social History household members: other details: mother housing: house current occupational status: 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 Call [facility] ([phone]) or report to the closest Emergency Room. Call 911 if necessary. 12/13/24 0910 <Electronically signed by Wero Santiago DO> Cosigner Signature (if applicable): CC: Dr. Eric Odom MD ~ Signed [facility] Work Phone: Evaluation + Plan note No data available for this section [facility] Evaluation noteNo assessment information available [facility] Work Phone: Evaluation note* Diagnosis Onset Date Resolution Status Umbilical hernia acute Morbid obesity with BMI of 40.0-44.9, adult chronic S/P umbilical hernia repair, follow-up exam acute [facility] Work Phone: Hospital Discharge instructions No data available for this section [facility] Hospital Discharge instructions Additional Instructions Monitor for worsening signs and symptoms. Follow-up with podiatry and PCP. Stop wearing your work boots.[facility] Work Phone: Progress note No data available for this section [facility] Reason for referral (narrative)No reason for referral information availableWHolmes [facility] Work Phone: Summary Purpose Family History No Family History Records Found Relationship Condition Age at Onset Recorded Date/T julius father Coronary artery disease Unknown Myocardial infarction Unknown Relationship Condition Age at Onset Recorded Date/T julius father Coronary artery disease Unknown Myocardial infarction Unknown mother Hypertension Unknown sister Hypertension Unknown Advance Directives No Advanced Directives Records Found Advance Directive Response Recorded Date/ Time Advance Directives No February 19 2:56pm Living Will No December 20, 2021 2:46pm Power of Carton Inspector No December 20 2:46pm Advance Directive Response Recorded Date/ Time Advance Directives No Ryanne 17th, 20 14 1:56pm Living Will No December 20, 2021 1:46pm Power of Carton Inspector No December 20 22 1:46pm Advance Directive Response Recorded Date/ Time Advance Directives No February 19 14 1:56pm Living Will No September 16 24 2:52pm Power of Carton Inspector No September 16, 2023 2:52pm Advance Directive Response Recorded Date/ Time Living Will No December 13, 2024 8:45am Do you have a Healthcare Power of Carton Inspector? No December 13, 2024 8:45am Advance Directives No February 19 14 2:56pm Advance Directive Response Recorded Date/ Time Living Will No December 13, 2024 8:45am Do you have a Healthcare Power of Carton Inspector? No December 13, 2024 8:45am Do you have a Healthcare Power of Carton Inspector? No March 04, 2025 1:34pm Advance Directives No February 19 14 2:56pm Advance Directive Response Recorded Date/ Time Living Will No December 13, 2024 8:45am Do you have a Healthcare Power of Carton Inspector? No December 13, 2024 8:45am Do you have a Healthcare Power of Carton Inspector? No March 04, 2025 5:15pm Advance Directives No February 19 14 2:56pm Chief Complaint and Reason for Visit Chief Complaint PALPATATIONS burning mouth 3 M FU right foot Reason for Visit Atherosclerotic hear t disease of [place] coronary artery without angina pectoris HLD (hyperlipidemia) HTN (hypertension) Stented coronary artery Chief Complaint 5 M FU PARTIAL TEAR OF COMMON EXTENSOR TEND. RX HERE. Reason for Visit Atherosclerotic hear t disease of [place] coronary artery without angina pectoris HLD (hyperlipidemia) [...] 2am NSTEMI March 04, 2025 4:31 pm Chief Complaint Admit Date RIGHT FOOT BLISTERS December 13, 2024 8:2 2am NSTEMI March 04, 2025 4:31 pm NSTEMI March 05, 2025 8:09a m NSTEMI March 05, 2025 1:20p m NSTEMI March 06, 2025 10:41 am NSTEMI March 06, 2025 12:35 pm Reason for Visit Admit Date Non-ST elevation NV (NSTEMI) March 04, 2025 4:31pm Family history of ischemic heart disease March 04, 2025 4:31pm History of lateral wall myocardial infar ction March 04, 2025 4:31pm History of percutaneous transluminal cor onary angioplasty March 04, 2025 4:31pm HLD (hyperlipidemia) March 04, 2025 4:3 1pm Stented coronary artery March 04, 2025 4:31pm Tobacco use disorder March 04, 2025 4:3 1pm Chief Complaint Admit Date RIGHT FOOT BLISTERS December 13, 2024 8:2 2am NSTEMI March 04, 2025 4:31 pm NSTEMI March 05, 2025 8:09a m NSTEMI March 05, 2025 1:20p m NSTEMI March 06, 2025 10:41 am NSTEMI March 06, 2025 12:35 pm S/P [facility] 7/2 NSTEMI March 12, 2025 1:57p m Reason for Visit Admit Date Non-ST elevation NV (NSTEMI) March 04, 2025 4:31pm Family history of ischemic heart disease March 04, 2025 4:31pm History of lateral wall myocardial infar ction March 04, 2025 4:31pm History of percutaneous transluminal cor onary angioplasty March 04, 2025 4:31pm HLD (hyperlipidemia) March 04, 2025 4:3 1pm Stented coronary artery March 04, 2025 4:31pm Tobacco use disorder March 04, 2025 4:3 1pm Orthostatic hypotension March 12, 2025 1 :57pm Atherosclerotic heart diseas e of [place] coronary artery without angina pectoris March 12, 2025 1:57pm HLD (hyperlipidemia) March 12, 2025 1:57 pm Stented coronary artery March 12, 2025 1 :57pm HTN (hypertension) March 12, 2025 1:57p m Reason for Visit Admit Date Family history of ischemic heart disease March 04, 2025 4:31pm History of lateral wall myocardial infar ction March 04, 2025 4:31pm History of percutaneous transluminal cor onary angioplasty March 04, 2025 4:31pm HLD (hyperlipidemia) March 04, 2025 4:3 1pm Stented coronary artery March 04, 2025 4:31pm Tobacco use disorder March 04, 2025 4:3 1pm Non-ST elevation NV (NSTEMI) March 04, 2025 4:31pm Orthostatic hypotension March 12, 2025 1 :57pm Atherosclerotic heart diseas e of [place] coronary artery without angina pectoris March 12, 2025 1:57pm HLD (hyperlipidemia) March 12, 2025 1:57 pm Stented coronary artery March 12, 2025 1 :57pm HTN (hypertension) March 12, 2025 1:57p m Chief Complaint Admit Date RIGHT FOOT BLISTERS December 13, 2024 8:2 2am NSTEMI March 04, 2025 4:31 pm NSTEMI March 05, 2025 8:09a m NSTEMI March 05, 2025 1:20p m NSTEMI March 06, 2025 10:41 am NSTEMI March 06, 2025 12:35 pm S/P [facility] 7/2 NSTEMI March 12, 2025 1:57p m Worsening SOB March 26, 2025 7:51 am Reason for Visit Admit Date Family history of ischemic heart disease March 04, 2025 4:31pm History of lateral wall myocardial infar ction March 04, 2025 4:31pm History of percutaneous transluminal cor onary angioplasty March 04, 2025 4:31pm HLD (hyperlipidemia) March 04, 2025 4:3 1pm Stented coronary artery March 04, 2025 4:31pm Tobacco use disorder March 04, 2025 4:3 1pm Non-ST elevation NV (NSTEMI) March 04, 2025 4:31pm Orthostatic hypotension March 12, 2025 1 :57pm Atherosclerotic heart diseas e of [place] coronary artery without angina pectoris March 12, 2025 1:57pm HLD (hyperlipidemia) March 12, 2025 1:57 pm Stented coronary artery March 12, 2025 1 :57pm HTN (hypertension) March 12, 2025 1:57p m ROGERS (dyspnea on exertion) March 26 7:51am Orthostatic hypotension March 26, 2025 7:51am Palpitations March 26, 2025 7:51 am Atherosclerotic heart diseas e of [place] coronary artery without angina pectoris March 26, 2025 7:51am HLD (hyperlipidemia) March 26, 2025 7:5 1am Stented coronary artery March 26, 2025 7:51am HTN (hypertension) March 26, 2025 7:51 am Chief Complaint Admit Date RIGHT FOOT BLISTERS December 13, 2024 8:2 2am NSTEMI March 04, 2025 4:31 pm NSTEMI March 05, 2025 8:09a m NSTEMI March 05, 2025 1:20p m NSTEMI March 06, 2025 10:41 am NSTEMI March 06, 2025 12:35 pm S/P [facility] 7/2 NSTEMI March 12, 2025 1:57p m Worsening SOB March 26, 2025 7:51 am E-ORDER March 26, 2025 8:30 am Reason for Visit Admit Date Family history of ischemic heart disease March 04, 2025 4:31pm History of lateral wall myocardial infar ction March 04, 2025 4:31pm History of percutaneous transluminal cor onary angioplasty March 04, 2025 4:31pm HLD (hyperlipidemia) March 04, 2025 4:3 1pm Stented coronary artery March 04, 2025 4:31pm Tobacco use disorder March 04, 2025 4:3 1pm Non-ST elevation NV (NSTEMI) March 04, 2025 4:31pm Orthostatic hypotension March 12, 2025 1 :57pm Atherosclerotic heart diseas e of [place] coronary artery without angina pectoris March 12, 2025 1:57pm HLD (hyperlipidemia) March 12, 2025 1:57 pm Stented coronary artery March 12, 2025 1 :57pm HTN (hypertension) March 12, 2025 1:57p m ROGERS (dyspnea on exertion) March 26 7:51am Palpitations March 26, 2025 7:51 am Atherosclerotic heart diseas e of [place] coronary artery without angina pectoris March 26, 2025 7:51am HLD (hyperlipidemia) March 26, 2025 7:5 1am Stented coronary artery March 26, 2025 7:51am HTN (hypertension) March 26, 2025 7:51 am Additional Source Comments (unrecognized sect ion and content) No Status Records FoundNo Status Records FoundNo Status Records Found INFORMATION SOURCE (unrecogn ized section and content) DATE CREATED AUTHOR 03/13/2019 [facility] DATE CREATED AUTHOR AUTHOR'S ORGANIZ ATION 03/11/2022 [facility] ([place]) DATE CREATED AUTHOR AUTHOR'S ORGANIZ ATION 04/11/2025 [facility] Goals (unrecognized section and content) Goals may [...] December 13, 2024 Dr. Wero Santiago DO Attending Provider Activ e Start: December 13, 2024 End: December 13, 2024 Dr. Wero Santiago DO Emergency Provider Activ e Start: December 13, 2024 End: December 13, 2024 Team Status: Active Member Role/Relationship Status Dates Dr. Eric Odmo MD Primary Care Provider Active Start: March 04, 2025 Dr. Anselmo Rios DO Emergency Provider Active Start: March 04, 2025 Dr. Hamilton Corral DO Admit Provider Active Start: March 04, 2025 Dr. Hamilton Corral DO Attending Provider Active Start: March 04, 2025 Dr. Hamilton Corral DO Referring Provider Active Start: March 04, 2025 [...] BE BASED ON THE PRIMARY CLINICAL RECORDS. [facility]. provides no warranty or guarantee of the accuracy or completeness of information in this document.
[2025-04-11] MEDS: Lidocaine/Epi/Tetracaine 50 ML 1 APPLIC TOPICAL (23:10)
[2025-04-11] MEDS: Lidocaine 1% (20 ml mdv) 20 ML Vial INFILT (23:13)
[2025-04-12 00:31] VITALS: BP 132/99; PULSE 91; RESP 16; TEMP 37; O2SAT 100
== END 2025-04-12 00:32 | disposition home or self-care (01) ==
PROVIDERS: Emergency Provider Emergency Medicine; PCP Family Medicine; Visit Provider Emergency Medicine
DX: S91.115A Laceration without foreign body of left lesser toe(s) without damage to nail, initial encounter (principal); I25.10 Atherosclerotic heart disease of native coronary artery without angina pectoris; E78.5 Hyperlipidemia, unspecified; Z87.891 Personal history of nicotine dependence; I10 Essential (primary) hypertension; I25.2 Old myocardial infarction; Z79.82 Long term (current) use of aspirin; Z79.02 Long term (current) use of antithrombotics/antiplatelets; W22.8XXA Striking against or struck by other objects, initial encounter; Z23 Encounter for immunization
CPT/HCPCS: 12002; 90471; 90715; 99283

== ENCOUNTER → 2025-04-22 | Outpatient (CLI) | payer OTHER, MEDICAID, SELFPAY ==
--- NOTE | 2025-04-22 15:51 | CT_ITS ---
PROCEDURE: CTA CHEST W/WO CONTRAST 04/22/2025 REASON FOR EXAM: ROGERS Shortness of breath. TECHNIQUE: CTA CHEST W/WO CONTRAST Multiplanar Sagittal and Coronal images were obtained. 3D post processing was performed CONTRAST: Isovue-300 VOLUME: 100 mL One or more dose reduction techniques were used (e.g., Automated exposure control, adjustment of the mA and/or kV according to patient size, use of iterative reconstruction technique). RADIATION DOSE SUMMARY: CTDlvol: 19.4 mGy DLP: 574.29 mGycm COMPARISON: Prior study dated March 04, 2025. FINDINGS: Hardware: None Lymph nodes: No suspicious lymph nodes are seen. Heart: Coronary artery calcification Thoracic Aorta: No thoracic aortic aneurysm or dissection. Pulmonary Vessels: Well opacified. No evidence of pulmonary embolism. Lungs and Airways: No focal infiltrate. No mass lesion. Pleura: No pleural effusion. No pneumothorax. Upper Abdomen: Fatty infiltration of the liver. Bones: Degenerative changes of the thoracic spine. Increased kyphosis. CT/CTA Chest W/WO Contrast IMPRESSION: No evidence of pulmonary embolism. No focal pulmonary infiltrate or mass. Coronary artery calcification. Reading Location: [id number]
--- OUTSIDE RECORDS SUMMARY | 2025-04-22 23:45 | XMS RPT_ITS | CCD ---
Author Organization [facility] Care Team Providers Care Special Effects Artist Name Role Phone Dr. Eric Odom Primary Care Provider Dr. Eric Odom Referring Provider Tristin CRANDALL, BECKY Green Attending Provider Dr. Eric Odom Primary Care Provider Dr. Eric Odom Referring Provider Smiley MONTGOMERY, VALENTINA Montes Attending Provider Dr. Christopher Montero Attending [...] Provider Dr. Hamilton Corral DO Other Provider Dr. Haritha Hernandez MD Other Provider Dr. Sam Cuellar MD Attending Provider Dr. Sam Cuellar MD Other Provider Dr. Haritha Hernandez MD Attending Provider Dr. Eric Odom MD Referring Provider Tristin CADMIUM BURNER-C, Norma Attending Provider Tristin CRANDALL-C, Norma Referring Provider José Miguel WOODALL, Dr. Rosenberg Emergency Provider Haritha Hernandez Consulting Unavailable Odom, Eric Primary Care Unavailable Ellis Hamilton Admitting Unavailable Mosteller, Hamilton Referring Unavailable Sam Cuellar Attending Unavailable Ellis, Hamilton Consulting Unavailable Tristin CADMIUM BURNER, Norma Attending Unavailable Tristin CADMIUM BURNER, Norma Referring Unavailable Odom, Eric Primary Care Unavailable Tristin CADMIUM BURNER, Norma Referring Unavailable Tristin CADMIUM BURNER, Norma Attending Unavailable Odom, Eric Primary Care Unavailable Ellis, Hamilton Referring Unavailable Haritha Hernandez Consulting Unavailable Ellis, Hamilton Admitting Unavailable Odom, Eric Primary Care Unavailable Sam Cuellar Attending Unavailable Ellis, Hamilton Consulting Unavailable Cherie Cuellarkash Consulting Unavailable Haritha Hernandez Attending Unavailable Odom, Eric Referring Unavailable Tristin CADMIUM BURNER, Norma Attending Unavailable Odom, Eric Primary Care Unavailable Tristin CADMIUM BURNER, Norma Attending Unavailable Odom, Eric Primary Care Unavailable Odom, Eric Referring Unavailable Tristin CADMIUM BURNER, Norma Attending Unavailable Odom, Eric Primary Care Unavailable Odom, Eric Referring Unavailable Hamilton Corral Attending Unavailable Tristin CADMIUM BURNER, Norma Attending Unavailable Tristin CADMIUM BURNER, Norma Referring Unavailable Odom, Eric Primary Care Unavailable Chet Valdez Attending Unavailable Odom, Eric Primary Care Unavailable Wero Santiago Attending Unavailabl e Odom, Eric Primary Care Unavailable Tristin CRANDALL, Norma Attending Unavailable Tristin CRANDALL, Norma Referring Unavailable Odom, Eric Primary Care Unavailable Allergies Allergy Classification Reported Allergen(s) Allergy Type Date of Onset Reaction(s) Facility (14 sources) atorvastatin Drug Allergy 2 Myalgias [facility] (14 sources) Cephalexin Drug Allergy 2 GIVES ME THE JITTERS [facility] (15 sources) Shellfish; Translations: [shellfish derived] Propensity to adverse reactions 2 Nausea/Vom/Diar sari [facility] (14 sources) bee venom protein (honey bee) Allergy to substance 2 Swelling [facility] (1 source) atorvastatin Drug Allergy 5 [facility] (1 source) Cephalexin Drug Allergy 5 [facility] (1 source) bee venom protein (honey bee) Drug allergy (disorder) 5 [facility] Medications Current Medications Medication Drug Class(es) Dates Sig (Normalized) Sig (Original) amLODIPine 10 mg oral tablet (20 sources) Dihydropyridine Calcium Channel Hernandez Start: 04-12-2025 take 5 mg by mouth once daily Amlodipine (Norvasc) 10 mg tablet Active 5 mg PO DAILY April 12, 2025 9:28am Start: 10-27-2020 End: 04-12-2025 take 1 tablet by mouth once daily Amlodipine (Norvasc) 10 mg tablet Discontinued 10 mg PO DAILY September 12, 2023 1:00am April 12, 2025 9:29am Start: 11-14-2018 End: 10-27-2020 take 1 tablet by mouth once daily Amlodipine 5 mg tablet Discontinued 5 mg PO DAILY November 14, 2018 12:00am October 27, 2020 4:11pm Ashwagandha Root Extract (1 source) Start: 09-16-2023 take 1300 mg by mouth once daily Ashwagandha Root Extract Active 1300 MG PO DAILY September 16, 2023 12:00am aspirin 81 mg chewable tablet (20 sources) Platelet Aggregation Inhibitor, Nonsteroidal Anti-inflammatory Drug [...] 2025 2:24pm clopidogrel 75 mg oral tablet (7 sources) P2Y12 Platelet Inhibitor Start: 03-06-2025 take 1 tablet by mouth once daily Clopidogrel (Plavix) 75 mg tablet Active 75 mg PO DAILY 30 30 March 06, 2025 12:00am DULoxetine 30 mg delayed release oral capsule (10 sources) Serotonin and Norepinephrine Reuptake Inhibitor Start: 09-12-2023 take 1 capsule by mouth once daily Duloxetine (Cymbalta) 30 mg capsule,delayed release(DR/EC) Active 30 mg PO DAILY September 12, 2023 1:00am Evolocumab (Repatha Sureclick) 140 mg/mL pen injector (4 sources) Start: 03-26-2025 Evolocumab (Repatha Sureclick) 140 mg/mL pen injector Active 140 mg SC every 2 weeks 2 6 March 26, 2025 12:00am losartan potassium 100 mg oral tablet (20 [...] 10:00am metoprolol tartrate 25 mg oral tablet (14 sources) beta-Adrenergic Hernandez Start: 10-27-2020 take 1 [...] 29, 2018 12:00am October 27, 2020 4:15pm Completed/Discontinued Medications Medication Drug Class(es) Dates Sig (Normalized) Sig (Original) amoxicillin 875 mg / clavulanate 125 mg oral tablet (14 sources) Penicillin-class Antibacterial Start: 03-27-2021 End: 08-17-2021 take 1 tablet by mouth every twelve hours Amoxicillin-Pot Clavulanate 875 MG tablet Discontinued 875 mg PO Q12H 20 0 March 27, 2021 12:00am August 17, 2021 4:34pm Ashwagandha Root Extract 500 mg capsule (9 sources) Start: 09-16-2023 End: 03-12-2025 take 1 capsule by mouth once daily Ashwagandha Root Extract 500 mg capsule Discontinued 1300 mg PO DAILY September 16, 2023 1:00am March 12, 2025 2:26pm On Hold: Talk to PCP Start: 09-16-2023 take 1 capsule by mo [facility] once daily Ashwagandha Root Extract 500 mg capsule Active 1300 mg PO DAILY September 16, 2023 1:00am On Hold: Talk to PCP Start: 09-16-2023 take 1 capsule by mo mth once daily Ashwagandha Root Extract 500 mg capsule Active 1300 mg PO DAILY September 16, 2023 1:00am benzonatate 200 mg oral capsule (10 sources) Non-narcotic Antitussive Start: 08-08-2023 End: 09-12-2023 [...] Magnesium) 500 mg calcium -250 mg Tablet (9 sources) Start: 03-27-2021 End: 09-12-2023 Calcium Carb,Gluc-Mag [...] 27, 2021 8:50am Calcium-Magnesium 300-300 mg tablet (9 sources) Start: 11-29-2018 End: 03-27-2021 Calcium-Magnesium 300-300 mg tablet Discontinued 1 {tbl} PO DAILY November 29, 2018 12:00am March 27, 2021 8:50am chlorthalidone 12.5 mg oral tablet (20 sources) Thiazide-like Diuretic Start: 03-06-2025 End: 03-12-2025 [...] 2025 2:46pm clindamycin 300 mg oral capsule (9 sources) Lincosamide Antibacterial Start: 12-13-2024 End: 03-04-2025 take 1 capsule by mouth every six hours Clindamycin Hcl (Cleocin Hcl) 300 mg capsule Discontinued 300 mg PO EVERY 6 HOURS 28 7 0 December 13, 2024 12:00am March 04, 2025 2:46pm cyclobenzaprine hydrochloride 10 mg oral tablet (14 sources) Muscle Relaxant Start: 11-09-2018 End: 10-27-2020 take 1 tablet by mouth three times daily as needed for pain Cyclobenzaprine 10 MG tablet Discontinued 10 mg PO 3 TIMES DAILY NEEDED as needed for Pain November 09, 2018 1:00am October 27, 2020 4:15pm dexamethasone 6 mg oral tablet (10 sources) Corticosteroid Start: 08-08-2023 End: 09-12-2023 take 1 tablet by mouth once daily Dexamethasone 6 mg tablet Discontinued 6 mg PO DAILY 5 0 August 08, 2023 1:00am September 12, 2023 3:12pm etodolac 400 mg oral tablet (13 sources) Nonsteroidal Anti-inflammatory Drug Start: 03-24-2022 End: 09-12-2023 take 1 tablet by mouth twice daily Etodolac 400 mg tablet Discontinued 400 mg PO TWICE A DAY March 24, 2022 12:00am September 12, 2023 3:12pm ezetimibe 10 mg oral tablet (6 sources) Dietary Cholesterol Absorption Inhibitor Start: 03-12-2025 End: 04-12-2025 take 1 tablet by mouth once daily Ezetimibe (Zetia) 10 mg tablet Discontinued 10 mg PO daily 30 March 12, 2025 12:00am April 12, 2025 9:29am gabapentin 300 mg oral capsule (14 sources) Anti-epileptic Agent Start: 11-09-2018 End: 08-17-2021 take 1 capsule by mouth at bedtime Gabapentin 300 MG capsule Discontinued 300 mg PO AT BEDTIME November 09, 2018 1:00am August 17, 2021 4:34pm gemfibrozil 600 mg oral tablet (14 sources) Peroxisome Proliferator Receptor alpha Agonist Start: 07-05-2019 End: 10-27-2020 take 1 tablet by mouth twice daily Gemfibrozil 600 mg tablet Discontinued 600 mg PO TWICE A DAY 60 July 05, 2019 12:00am October 27, 2020 4:15pm glucosamine hydrochloride 1500 mg oral tablet (14 sources) Start: 08-17-2021 End: 04-12-2025 Glucosamine Hcl 1,500 mg tablet Discontinued 1000 mg PO DAILY August 17, 2021 1:00am April 12, 2025 9:29am administer with a meal Start: 08-17-2021 take 1000 mg by mout h once daily Glucosamine Hcl Active 1000 MG PO DAILY August 17, 2021 12:00am administer with a meal Start: 08-17-2021 take 1500 mg by mout h once daily Glucosamine Hcl Active 1500 MG PO DAILY August 17, 2021 12:00am administer with a meal hydroCHLOROthiazide 25 mg oral tablet (20 sources) [...] / losartan potassium 50 mg oral tablet (14 sources) Thiazide Diuretic, Angiotensin 2 Receptor Hernandez [...] 2021 4:36pm ibuprofen 200 mg oral tablet (8 sources) Nonsteroidal Anti-inflammatory Drug Start: 03-04-2025 End: 03-06-2025 Ibuprofen (Addaprin) 200 mg tablet Discontinued 800 mg PO Q8H March 04, 2025 12:00am March 06, 2025 12:30pm knee pain Lidocaine (14 sources) Antiarrhythmic, Amide Local Anesthetic Start: 10-10-2021 [...] 2021 8:24pm November 17, 2021 3:09pm Magnesium (18 sources) Start: 03-04-2025 End: 03-06-2025 take 4 [...] 12:00am meclizine hydrochloride 25 mg oral tablet (14 sources) Antiemetic Start: 08-12-2021 End: 11-17-2021 take 1 tablet by mouth three times daily as needed for dizziness Meclizine 25 mg tablet Discontinued 25 mg PO THREE TIMES A DAY as needed for dizziness 14 0 August 12, 2021 3:40pm November 17, 2021 3:10pm Multivitamin Tablet (9 sources) Start: 03-27-2021 End: 04-12-2025 Multivitamin Tablet Discontinued 1 {tbl} PO DAILY March 27, 2021 12:00am April 12, 2025 9:29am Start: 03-27-2021 Multivitamin T ablet Active 1 {tbl} PO DAILY March 27, 2021 12:00am Multivitamin tablet (9 sources) Start: 11-29-2018 End: 10-27-2020 Multivitamin tablet [...] 2021 4:35pm March 04, 2025 2:46pm nystatin 214236 unt/ml oral suspension (14 sources) Polyene Antifungal Start: 10-10-2021 End: 11-17-2021 Nystatin 100,000 unit/mL suspension Discontinued 009561 U PO EVERY 6 HOURS 20 5 0 October 10, 2021 1:00am November 17, 2021 3:11pm administer 1/2 of dose in each side of the mouth Dunlevy-3 Fatty Acids-Fish Oil (Fish Oil) 300-1,000 mg capsule (14 sources) Start: 11-29-2018 End: 08-17-2021 take 2 capsules by mouth once daily Dunlevy-3 Fatty Acids-Fish Oil (Fish Oil) 300-1,000 mg capsule Discontinued 2 CAP PO DAILY November 29, 2018 10:29am August 17, 2021 4:33pm Start: 11-29-2018 End: 08-17-2021 Dunlevy-3 Fatty Acids-Fish Oil (Fish Oil) 300-1,000 mg capsule Discontinued 2 NMA PO DAILY November 29, 2018 12:00am August 17, 2021 4:33pm Start: 11-29-2018 End: 08-17-2021 take 2 capsules by mouth once daily Dunlevy-3 Fatty Acids-Fish Oil (Fish Oil) 300-1,000 mg capsule Discontinued 2 CAP PO DAILY November 28, 2018 11:00pm August 17, 2021 3:33pm Start: 11-29-2018 End: 08-17-2021 take 2 capsules by mouth once daily Dunlevy-3 Fatty Acids-Fish Oil (Fish Oil) 300-1,000 mg capsule Discontinued 2 CAP PO DAILY November 29, 2018 12:00am August 17, 2021 4:33pm oxyCODONE hydrochloride 5 mg oral tablet (10 sources) Opioid Agonist Start: 09-22-2023 End: 03-04-2025 take 5-10 mg by mouth every six hours as needed for pain Oxycodone 5 mg tablet Discontinued 5 - 10 mg PO EVERY 6 HOURS as needed for pain 15 5 0 September 22, 2023 March 04, 2025 2:47pm Umbilical hernia Umbilical hernia without obstruction or gangrene potassium chloride 20 meq extended release oral tablet (14 sources) Start: 10-27-2020 End: 09-12-2023 take 2 tablets by mouth once daily Potassium Chloride 20 mEq tablet extended release Discontinued 40 meq PO DAILY October 27, 2020 1:00am September 12, 2023 3:13pm Start: 10-27-2020 End: 09-12-2023 take 40 mEq by mouth once daily Potassium Chloride Discontinued 40 MEQ PO DAILY October 27, 2020 12:00am September 12, 2023 2:13pm sucralfate 100 mg/ml oral suspension (14 sources) Aluminum Complex Start: 10-10-2021 End: 11-17-2021 take 1 mL by mouth every four hours as needed for pain Sucralfate (Carafate) 100 mg/mL suspension Discontinued 5 mL PO Q4H as needed for pain 100 0 October 10, 2021 8:28pm November 17, 2021 3:11pm traMADol hydrochloride 50 mg oral tablet (14 sources) Opioid Agonist Start: 09-18-2016 End: 05-18-2018 take 1 tablet by mouth every six hours as needed for pain Tramadol 50 MG tablet Discontinued 50 mg PO EVERY 6 HOURS NEEDED as needed for Pain September 18, 2016 1:00am May 18, 2018 5:35pm ubidecarenone 100 mg oral capsule (8 sources) Start: 03-04-2025 End: 04-12-2025 Coenzyme Q10 (Co Q-10) 100 mg capsule Discontinued 300 mg PO DAILY March 04, 2025 12:00am April 12, 2025 9:29am Problems Active Problems Problem Classification Problem Date Documented Date Episodic/Chronic Abdominal hernia (20 sources) Ischiatic hernia; Translations: [Other specified abdominal hernia without obstruction or gangrene] 09-19-2016 Episodic Acute myocardial infarction (17 sources) Myocardial infarction; Translations: [Non-ST elevation (NSTEMI) myocardial infarction] Onset: 04-16-2025 03-04-2025 Chronic Cardiac dysrhythmias (14 sources) Ventricular premature beats; Translations: [Ventricular premature depolarization] 08-20-2021 Chronic Cardiac dysrhythmias (10 sources) Palpitations; Translations: [Palpitations] Onset: 03-26-2025 03-26-2025 Episodic Conditions associated with dizziness or vertigo (16 sources) Dizziness; Translations: [Dizziness and giddiness] Onset: 04-12-2025 08-20-2021 Episodic Coronary atherosclerosis and other heart disease (20 sources) History of myocardial infarction; Translations: [Old myocardial infarction] Onset: 07-22-2009 Chronic Coronary atherosclerosis and other heart disease (20 sources) Stented coronary artery; Translations: [Presence of coronary angioplasty implant and graft] Onset: 07-22-2009 Episodic Comment on above: [facility] post VA, proxim al ramus Disorders of lipid metabolism (20 sources) Hyperlipidemia; Translations: [Hyperlipidemia, unspecified] Onset: 03-18-2025 Chronic Essential hypertension (20 sources) Hypertensive disorder; Translations: [Essential (primary) hypertension] Chronic Headache; including migraine (14 sources) Headache; Translations: [Headache] 08-20-2021 Episodic Heart valve disorders (14 sources) Ventricular bigeminy; Translations: [Other abnormalities of heart beat] 08-20-2021 Episodic Nonspecific chest pain (8 sources) Chest pain; Translations: [Chest pain, unspecified] 03-04-2025 Episodic Open wounds of extremities (16 sources) Laceration of foot; Translations: [Laceration without foreign body, right foot, initial encounter] 12-28-2021 Episodic Open wounds of extremities (1 source) Laceration without foreign body of left lesser toe(s) without damage to nail, initial encounter; Translations: [Laceration without foreign body of left lesser toe(s) without damage to nail, initial encounter] Onset: 04-17-2025 Episodic Other aftercare (10 sources) History of repair of umbilical hernia; Translations: [Encounter for follow-up examination after completed treatment for conditions other than malignant neoplasm] 10-06-2023 Episodic Other aftercare (1 source) Encounter for follow-up examination after completed treatment for conditions other than malignant neoplasm; Translations: [Follow-up examination, following other surgery] 10-06-2023 Episodic Other circulatory disease (13 sources) Orthostatic hypotension; Translations: [Orthostatic hypotension] 03-12-2025 Episodic Other circulatory disease (1 source) Orthostatic hypotension; Translations: [Orthostatic hypotension] Onset: 03-12-2025 Episodic Other lower respiratory disease (9 sources) Dyspnea on exertion; Translations: [Other forms of dyspnea] 03-26-2025 Episodic Other lower respiratory disease (2 sources) Other forms of dyspnea; Translations: [Other forms of dyspnea] Onset: 04-12-2025 Episodic Other nutritional; endocrine; and metabolic disorders (14 sources) Body mass index 40+ - severely obese; Translations: [Morbid (severe) obesity due to excess calories] 12-20-2021 Chronic Other nutritional; endocrine; and metabolic disorders (1 source) Morbid (severe) obesity due to excess calories; Translations: [Morbid obesity] 09-12-2023 Chronic Other upper respiratory infections (14 sources) Pharyngitis; Translations: [Acute pharyngitis, unspecified] 03-27-2021 Episodic Residual codes; unclassified (14 sources) History of chest pain; Translations: [Personal history of other specified conditions] 09-29-2015 Episodic Residual codes; unclassified (20 sources) Family history of ischemic heart disease; Translations: [Family history of ischemic heart disease and other diseases of the circulatory system] 11-12-2018 Episodic Residual codes; unclassified (1 source) Family history of ischemic heart disease and other diseases of the circulatory system; Translations: [Family history of ischemic heart disease and other diseases of the circulatory system] Onset: 04-16-2025 Episodic Spondylosis; intervertebral disc disorders; other back problems (14 sources) Lumbar facet joint pain; Translations: [Spondylosis without myelopathy or radiculopathy, lumbar region] 01-14-2021 Chronic Spondylosis; intervertebral disc disorders; other back problems (14 sources) Lumbar radiculopathy; Translations: [Radiculopathy, lumbar region] 05-18-2018 Episodic Sprains and strains (14 sources) Low back strain; Translations: [Strain of muscle, fascia and tendon of lower back, initial encounter] 05-19-2018 Episodic Substance-related disorders (20 sources) Tobacco user; Translations: [Nicotine dependence, unspecified, uncomplicated] Onset: 04-16-2025 11-12-2018 Chronic Unclassified (7 sources) Contraindication with the statin. Advised follow-up PCP to request prior authorization for Vascepa Past or Other Problems Problem Classification Problem Date Documented Da te Episodic/Chronic Superficial injury; contusion (10 sources) Blister of foot; Translations: [Blister (nonthermal), unspecified lesser toe(s), initial encounter] Onset: 12-19-2024 12-13-2024 Episodic Unclassified (13 sources) right elbow surgery 03-25-2022 Comment on above: 02/20/2019 Results Test Name Value Interpretation Reference Range Facility Cardiology Visit Reporton Cardiology Visit Report [facility] [address] [facility] [place] [address] OFFICE VISIT Date of Service: 04/12/25 MR#: [id number] Acct: [id number] Name: ARGELIA COPELAND Rep #: [id number] : 1970 Provider: BECKY arana Age/Sex: 55/M [place] [facility] [facility] [place] Signed HPI HPI History of Present Illness Details: ARGELIA COPELAND, is a 55 year old male who presents to the office today for a cardiovascular follow up visit. Patient was last seen in our office in 2021. He has a history of hypertension, hypercholesterolemia , coronary artery disease status post lateral wall myocardial infarction on 07/22/2009 and is status post percutaneous intervention of an unknown artery at [facility] with Dr Nguyen. Patient presented to the [...] patient is doing well. He does acknowledge palpitations-he is currently wearing an event monitor. He denies chest pain, pressure or heaviness. He does acknowledge SOB with exertion and at rest. He denies Orthopnea, and PND. He does not have bleeding issues; no blood in urine, stool, or nosebleeds. He does acknowledge fatigue. He denies myalgias, or claudication. He does not have edema, or sudden weight gain. He does acknowledge lightheadedness with positional changes. He denies dizziness, syncopal or near syncopal episodes, and headaches. Intake Vital Signs 03/12/25 14:27 04/12/25 07:53 Height 6 ft 4 in 6 ft 4 in Weight: 358 lb BMI 43.5 BP 121/85 H Blood Pressure Location Lt brachial Position Sitting Respiration 18 Pulse 80 Pulse Source Monitor Pulse Oximetry (%) 96 Intake Visit Reasons: 1 M FU Machine Boss Required: No Is patient in pain?: No Allergies bee venom protein (honey bee) Allergy (Verified 04/12/25 09:48) Swelling atorvastatin Adverse Reaction (Severe, Verified 04/12/25 09:48) Myalgias cephalexin (From Keflex) Adverse Reaction (Verified 04/12/25 09:48) GIVES ME THE JITTERS shellfish derived Adverse Reaction (Verified 04/12/25 09:48) Nausea/Vom/Diarrhea Medications ???Medication ???Instructions ???Recorded ???Confirmed ???Type metoprolol tartrate 25 mg tablet 25 mg PO BID 10/27/20 04/12/25 His tory losartan 100 mg tablet 100 mg PO DAILY 11/17/21 04/12/25 History duloxetine 30 mg capsule,delayed 30 mg PO DAILY 09/12/23 04/12/25 H istory release (Cymbalta) aspirin 81 mg chewable tablet 81 mg PO BREAKFAST 90 days #90 tab s 03/06/25 04/12/25 Rx clopidogrel 75 mg tablet (Plavix) 75 mg PO DAILY 1 month #30 tabs 0 03/06/25 04/12/25 Rx evolocumab 140 mg/mL subcutaneous 140 mg subcut Q2W #2 mL 03/26/25 04/12/25 Rx pen injector (Repatha SureClick) amlodipine 10 mg tablet (Norvasc) 5 mg PO DAILY 04/12/25 04/12/25 H istory Ejection fraction %: 60 Have you fallen in the past year?: [facility] History (Updated 04/12/25 @ 12:02 by Norma Crow NP, CADMIUM BURNER-C) Non-ST elevation VA (NSTEMI) Wears glasses Cancer Arthritis History of [...] myocardial infarction (07/22/09) Atherosclerotic heart disease of [place] coronary artery without angina pectoris HTN (hypertension) Morbid obesity with BMI of 40.0-44.9, adult Tobacco use disorder HLD (hyperlipidemia) Family history of ischemic heart disease Surgical History History of coronary artery stent placement S/P umbilical hernia repair, follow-up exam Hx of surgical procedure History of surgery on arm History of dental surgery Stented coronary artery (07/22/09) Family History Father , Age 57 of [place], had VA/CAD at age 39 CAD (coronary artery disease) Myocardial infarction Mother Hypertension Sister Hypertension Social History household members: other details: mother housing: house current occupational status: employed 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: Former smoker pack-years: 20 alcohol intake: never do you feel safe at home: Ye (more content not included)... Normal [facility] Emergency Department Summary on 04-11-2025 Emergency Department Summary [facility] Medical Records Department [address] [place] [address] Emergency Department Summary 04/11/25 MR#: [id number] Acct: [id number] Name: ARGELIA COPELAND Rep #: [id number] : 1970 55 From: Chet Valdez MD PCP: Dr. Eric Odom MD Status:REG ER Location: ED HPI History of Present Illness HPI Narrative: 55-year-old male history of VA on Plavix and aspirin. Stepped on a piece of metal in his utility room in his house today around 1 PM causing a laceration on the bottom of his left third toe. He said initially was okay but he has had consistent bleeding tonight. Denies any other complaints says he does not think there is a foreign body. Believes he needs his tetanus updated. Chief Complaint: Laceration Informant: patient Occured/Mechanism Mechanism/Context: Yes injury Onset/Context/Timing Onset: Today and Hours Context: Sudden Onset Timing: Intermittent Current Severity: Mild Maximum Severity: Mild Associated Symptoms Associated Symptoms: Negative for Parasthesia, Weakness or Loss of Funtion Narrative Narrative: 35-year-old male on Plavix and aspirin lacerating the bottom of his left third toe at 1 PM today. 7 intermittent bleeding wanted to have it repaired. Tetanus Immunization: >10 years Prior similar symptoms: No Recent Illness/Hospitalizat ion: No PFSH PFSH Medical History Non-ST elevation VA (NSTEMI) Wears glasses Cancer Arthritis History of [...] myocardial infarction (07/22/09) Atherosclerotic heart disease of [place] coronary artery without angina pectoris HTN (hypertension) Morbid obesity with BMI of 40.0-44.9, adult Tobacco use disorder HLD (hyperlipidemia) Family history of ischemic heart disease Home Medications ???Medication ???Instructions ???Recorded ???Last Taken ???Type metoprolol tartrate 25 mg tablet 25 mg PO BID 10/27/20 03/04/25 His tory multivitamin 1 tab PO DAILY 07/23/21 06/29/25 H istory glucosamine HCl 1,500 mg tablet 1,000 mg PO DAILY 08/17/21 5 History losartan 100 mg tablet 100 mg PO DAILY 11/17/21 03/04/25 History amlodipine 10 mg tablet (Norvasc) 10 mg PO DAILY 09/12/23 03/04/25 History duloxetine 30 mg capsule,delayed 30 mg PO DAILY 09/12/23 03/04/25 H istory release (Cymbalta) coenzyme Q10 100 mg capsule (Co 300 mg PO DAILY 03/04/25 03/03/25 History Q-10) aspirin 81 mg chewable tablet 81 mg PO BREAKFAST 90 days #90 tab s 03/06/25 Unknown Rx clopidogrel 75 mg tablet (Plavix) 75 mg PO DAILY 1 month #30 tabs 0 03/06/25 Unknown Rx ezetimibe 10 mg tablet (Zetia) 10 mg PO QDAY #30 tabs 03/12/25 Un known Rx evolocumab 140 mg/mL subcutaneous 140 mg subcut Q2W #2 mL 03/26/25 Unknown Rx pen injector (Repatha SureRuizick) Allergy/AdvReac Type Severity Reaction Status Date / Time bee venom protein (honey bee) Allergy Swelling Verified 04/11/25 21:12 atorvastatin AdvReac Severe Myalgias Verified 04/11/25 21:12 cephalexin (From Keflex) AdvReac GIVES ME Verified 04/11/25 21:12 [employer] shellfish derived AdvReac Nausea/Vom/ Verified 04/11/25 21:12 Diarrhea Family History Father , Age 57 of [place], had VA/CAD at age 39 CAD (coronary artery disease) Myocardial infarction Mother Hypertension Sister Hypertension Surgical History History of coronary artery stent placement S/P umbilical hernia repair, follow-up exam Hx of surgical procedure History of surgery on arm History of dental surgery Stented coronary artery (07/22/09) Social History household members: other details: mother housing: house current occupational status: employed 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: Former smoker pack-years: 20 alcohol intake: never do you feel safe at home: Yes ROS ROS ED ROS Narrative Denies recent illness. Constitutional Constitutional ED: Denies chills or fever(s) Eyes Eyes: Denies blurry vision ENT ENT ED: Denies ear pain Cardiovascular Cardiovascular: Denies chest pain Respiratory/Chest Respiratory/Chest: Denies cough or dyspnea Gastrointestinal Gastrointestinal: Denies abdominal pain Genitourinary Genitourinary ED: Denies dysuria or hematuria Musculoskeletal Musculoskeletal: Daniel (more content not included)... Normal [facility] Absolute lymphocyte countOrd ered By: Norma Crow on 03-26-2025 Lymphocytes Auto (Unsp spec) [#/Vol] 2.31 10*3/uL 0.83-4.51 [facility] Absolute neutrophil countOrd ered By: Norma Crow on 03-26-2025 Neutrophils (Bld) [#/Vol] 5.5 10*3/uL 2.0-7.7 [facility] Anion gap in Serum or Plasma Ordered By: Norma Crow on 03-26-2025 Anion gap [Moles/Vol] 15 mmol/L 5-15 [facility] Automated lymphocyte count a s percentage of total leukocytesOrdered By: Norma Crow on 03-26-2025 Lymphocytes/100 WBC Auto (Unsp spec) 26.2 % 19-41 [facility] BUN/creatinine ratioOrdered By: Norma Crow on 03-26-2025 Urea nitrogen/Creatinine [Mass ratio] 9.9 mg/mg Low 10-20 [facility] Basic Metabolic Profile (BMP )on 03-26-2025 BUN/CRE 9.9 RATIO Low 10-20 [facility] Comment on above: Performed By: #### L 300.4310 #### [facility] [address] [place], [address] Calcium [Mass/Vol] 9.1 mg/dL Normal 7.6-11.0 [facility] Comment on above: Performed By: #### L 300.4310 #### [facility] [address] [place], [address] Chloride [Moles/Vol] 107 mmol/L Normal 98-108 [facility] Comment on above: Performed By: #### L 300.4310 #### [facility] [address] [place], [address] CO2 [Moles/Vol] 18.6 mmol/L Low 21.0-32.0 [facility] Comment on above: Performed By: #### L 300.4310 #### [facility] [address] [place], [address] Creatinine [Mass/Vol] 1.08 mg/dL Normal 0.70-1.20 [facility] Comment on above: Performed By: #### L [id number] #### [facility] [address] [place], [address] GAP 15 Normal 5-15 [facility] Comment on above: Performed By: #### L 300.4310 #### [facility] [address] [place], [address] GFR/1.73 sq M.predicted among non-blacks MDRD (S/P/Bld) [Vol rate/Area] 81 mL/min/{1.73_m2} Normal >60 [facility] Comment on above: Result Comment: mL/m in/1.73m2 CKD-EPI Creatinine Equation (2020) Performed By: #### L 300.4310 #### [facility] [address] [place], [address] Glucose [Mass/Vol] 125 mg/dL High 70-99 [facility] Comment on above: Performed By: #### L 300.4310 #### [facility] [address] [place], [address] Potassium [Moles/Vol] 4.1 mmol/L Normal 3.3-5.1 [facility] Comment on above: Performed By: #### L [id number] #### [facility] [address] [place], [address] Sodium [Moles/Vol] 140 mmol/L Normal 133-145 [facility] Comment on above: Performed By: #### L 300.4310 #### [facility] [address] [place], [address] Urea nitrogen [Mass/Vol] 11 mg/dL Normal 4-19 [facility] Comment on above: Performed By: #### L 300.4310 #### [facility] [address] [place], [address] Basophil percentageOrdered B y: Norma Crow on 03-26-2025 Basophils/100 WBC (Bld) 1.4 % High 0-1 [facility] CBC W/Diff, Automatedon 03-06 Absolute Lymph 2.31 X10 3/uL Normal 0.83-4.51 [facility] Comment on above: Performed By: #### L 300.4310 #### [facility] [address] [place], [address] Absolute Neut 5.5 X10 3/uL Normal 2.0-7.7 [facility] Comment on above: Performed By: #### L 300.4310 #### [facility] [address] [place], [address] Basophils/100 WBC (Bld) 1.4 % High 0-1 [facility] Comment on above: Performed By: #### L 300.4310 #### [facility] [address] [place], [address] Eosinophils/100 WBC (Bld) 2.5 % Normal 0-5 [facility] Comment on above: Performed By: #### L 300.4310 #### [facility] [address] [place], [address] Erythrocyte distribution width (RBC) [Ratio] 13.2 % Normal 11.6-14.6 [facility] Comment on above: Performed By: #### L 300.4310 #### [facility] [address] [place], [address] Hematocrit (Bld) [Volume fraction] 47.1 % Normal 40-54 [facility] Comment on above: Performed By: #### L 300.4310 #### [facility] [address] [place], [address] Hemoglobin (Bld) [Mass/Vol] 16.1 g/dL Normal 13.0-16.5 [facility] Comment on above: Performed By: #### L 300.4310 #### [facility] [address] [place], [address] IG% 0.500 Normal 0.0-0.9 [facility] Comment on above: Result Comment: IG% - Immature Granulocytes (promyelocytes, myelocytes and metamyelocytes) > 1% indicates that a LEFT SHIFT is Present. Performed By: #### L 300.4310 #### [facility] [address] [place], [address] Lymphocytes/100 WBC (Bld) 26.2 % Normal 19-41 [facility] Comment on above: Performed By: #### L 300.4310 #### [facility] [address] [place], [address] MCH (RBC) [Entitic mass] 30.0 pg Normal 27.0-32.0 [facility] Comment on above: Performed By: #### L 300.4310 #### [facility] [address] [place], [address] MCHC (RBC) [Mass/Vol] 34.2 g/dL Normal 32-36 [facility] Comment on above: Performed By: #### L 300.4310 #### [facility] [address] [place], [address] MCV (RBC) [Entitic vol] 87.7 fL Normal 80-94 [facility] Comment on above: Performed By: #### L 300.4310 #### [facility] [address] [place], [address] Monocytes/100 WBC (Bld) 6.8 % Normal 0-10 [facility] Comment on above: Performed By: #### L 300.4310 #### [facility] [address] [place], [address] Neutrophils/100 WBC (Bld) 62.6 % Normal 47-70 [facility] Comment on above: Performed By: #### L 300.4310 #### [facility] [address] [place], [address] Nucleated RBC (Bld) [#/Vol] 0 10*3/uL Normal 0-5 [facility] Comment on above: Performed By: #### L 300.4310 #### [facility] [address] [place], [address] Platelet mean volume (Bld) [Entitic vol] 9.7 fL Normal 6.2-12.0 [facility] Comment on above: Performed By: #### L 300.4310 #### [facility] [address] [place], [address] Platelets (Bld) [#/Vol] 364 10*3/uL Normal 150-450 [facility] Comment on above: Performed By: #### L 300.4310 #### [facility] [address] [place], [address] RBC (Bld) [#/Vol] 5.37 10*6/uL Normal 4.6-6.2 [facility] Comment on above: Performed By: #### L 300.4310 #### [facility] [address] [place], [address] RDW SD 42.2 fl Normal 35.1-43.9 [facility] Comment on above: Performed By: #### L 300.4310 #### [facility] [address] [place], [place], [address] WBC (Bld) [#/Vol] 8.8 10*3/uL Normal 4.4-11.0 [facility] Comment on above: Performed By: #### L 300.4310 #### [facility] [address] [place], [address] Carbon dioxide, total [Moles /volume] in Central venous bloodOrdered By: Norma Crow on 03-26-2025 CO2 [Moles/Vol] 18.6 mmol/L Low 21.0-32.0 [facility] Cardiology Visit Reporton Cardiology Visit Report [facility] [address] [place], [place] [address] OFFICE VISIT Date of Service: 03/26/25 MR#: [id number] Acct: [id number] Name: ARGELIA COPELAND Rep #: [id number] : 1970 Provider: BECKY arana Age/Sex: 55/M Location: [facility] Status: Signed HPI HPI History of Present [...] percutaneous intervention of an unknown artery at [facility] with Dr Nguyen. 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 [facility] Medical History Non-ST elevation VA (NSTEMI) Wears glasses Cancer Arthritis History of [...] myocardial infarction (07/22/09) Atherosclerotic heart disease of [place] coronary artery without angina pectoris HTN (hypertension) Morbid obesity with BMI of 40.0-44.9, adult Tobacco use disorder HLD (hyperlipidemia) Family history of ischemic heart disease Surgical History History of coronary artery stent placement S/P umbilical hernia repair, follow-up exam Hx of surgical procedure History of surgery on arm History of dental surgery Stented coronary artery (07/22/09) Family History Father , Age 57 of [place], had VA/CAD at age (more content not included)... Normal [facility] Chest PA and Lateralon 03-26 Chest PA and Lateral [facility] [address] [place], [place] [id number] Chest PA and Lateral MR#: [id number] Acct: [id number] Name: ARGELIA COPELAND Rep #: [id number] : 1970 M 55 From: Cleo Merritt PCP: Dr. Eric Odom MD Status: [facility] CLI Study: Chest PA and Lateral Date of Exam: 03/26/25 Exam# [id number] Ordering Dr: Norma Crow NP [facility]MIUM [facility]URNER- C PROCEDURE: CHEST PA AND LATERAL 03/26/2025 REASON FOR EXAM: ROGERS TECHNIQUE: CHEST PA AND LATERAL COMPARISON: 03/04/2025 FINDINGS: No focal consolidation. No pleural effusion or pneumothorax. Cardiac silhouette is within normal limits. No acute fractures. RAD/Chest PA and Lateral IMPRESSION: No focal consolidations. Reading Location: [id number] CC: CADMIUM BURNER-C Norma Crow; Dr. Eric Odom MD Exercise Planner: Signed Normal [facility] Chloride assayOrdered By: Negrito Crow on 03-26-2025 Chloride [Moles/Vol] 107 mmol/L 98-108 [facility] Eosinophil percentageOrdered By: Norma Crow on 03-26-2025 Eosinophils/100 WBC (Bld) 2.5 % 0-5 [facility] Erythrocyte distribution wid th ratioOrdered By: Norma Crow on 03-26-2025 Erythrocyte distribution width (RBC) [Ratio] 13.2 % 11.6-14.6 [facility] Erythrocyte distribution wid th standard deviationOrdered By: Norma Crow on 03-26-2025 Erythrocyte distribution width (RBC) [Ratio] 42.2 fl 35.1-43.9 [facility] Glomerular filtration rate ( GFR) estimation/1.73 sq m using serum, plasma, or whole bOrdered By: Norma Crow on 03-26-2025 GFR/1.73 sq M.predicted among non-blacks MDRD (S/P/Bld) [Vol rate/Area] 81 mL/min/{1.73_m2} >60 [facility] Comment on above: mL/min/1.73m2 CKD-EP I Creatinine Equation (2020) Hematocrit Auto (Bld) [Volum e fraction]Ordered By: Norma Crow on 03-26-2025 Hematocrit (Bld) [Volume fraction] 47.1 % 40-54 [facility] Hemoglobin measurementOrdere d By: Norma Crow on 03-26-2025 Hemoglobin (Bld) [Mass/Vol] 16.1 g/dL 13.0-16.5 [facility] Immature granulocytes/100 WB C Auto (Bld)Ordered By: Norma Crow on 03-26-2025 Immature granulocytes/100 WBC (Bld) 0.500 % 0.0-0.9 [facility] Comment on above: IG% - Immature Granu locytes (promyelocytes, myelocytes and metamyelocytes) > 1% indicates that a LEFT SHIFT is Present. L503.7505on 03-26-2025 Natriuretic peptide B (Bld) [Mass/Vol] 88 pg/mL Normal <=900 [facility] Comment on above: Result Comment: Hear t Failure Unlikely: < 300 pg/mL Heart Failure Likely < 50 Years: > 450 pg/mL 50-75 Years: > 900 pg/mL >75 Years: > 1800 pg/mL Performed By: #### L 300.4310 #### [facility] [address] [place], [place], [address] MCV (mean corpuscular volume ) determinationOrdered By: Norma Crow on 03-26-2025 MCV (RBC) [Entitic vol] 87.7 fL 80-94 [facility] Magnesiumon 03-26-2025 Magnesium [Mass/Vol] 2.2 mg/dL Normal 1.5-2.2 [facility] Comment on above: Performed By: #### L 300.4310 #### [facility] [address] [place], [place], [address] Magnesium measurement (mass/ volume)Ordered By: Norma Crow on 03-26-2025 Magnesium (Unsp spec) [Mass/Vol] 2.2 mg/dL 1.5-2.2 [facility] Mean corpuscular hemoglobin (MCH) determinationOrdered By: Norma Crow on 03-26-2025 MCH (RBC) [Entitic mass] 30.0 pg 27.0-32.0 [facility] Mean corpuscular hemoglobin concentration (MCHC) determinationOrdered By: Norma Crow on 03-26-2025 MCHC (RBC) [Mass/Vol] 34.2 g/dL 32-36 [facility] Mean platelet volume determi nationOrdered By: Norma Crow on 03-26-2025 Platelet mean volume (Bld) [Entitic vol] 9.7 fL 6.2-12.0 [facility] Monocyte percentageOrdered B y: Norma Crow on 03-26-2025 Monocytes/100 WBC (Bld) 6.8 % 0-10 [facility] Natriuretic peptide.B prohor joi N-Terminal [Mass/volume] in Serum or PlasmaOrdered By: Norma Crow on 03-26-2025 Natriuretic peptide.B prohormone N-Terminal [Mass/Vol] 88 pg/mL <900 [facility] Comment on above: Heart Failure Unlike ly: < 300 pg/mLHeart Failure Likely< 50 Years: > 450 pg/mL50-75 Years: > 900 pg/mL>75 Years: > 1800 pg/mL Neutrophil percentageOrdered By: Norma Crow on 03-26-2025 Neutrophils/100 WBC (Bld) 62.6 % 47-70 [facility] Nucleated red blood cell per centageOrdered By: Norma Crow on 03-26-2025 Nucleated RBC/100 WBC (Bld) [Ratio] 0 % 0-5 [facility] Platelet countOrdered By: Negrito Crow on 03-26-2025 Platelets (Bld) [#/Vol] 364 10*3/uL 150-450 [facility] Potassium measurement (mass/ volume)Ordered By: Norma Crow on 03-26-2025 Potassium (Unsp spec) [Mass/Vol] 4.1 mmol/L 3.3-5.1 [facility] RBC Auto (Bld) [#/Vol]Ordere d By: Norma Crow on 03-26-2025 RBC (Bld) [#/Vol] 5.37 10*6/uL 4.6-6.2 [facility] Serum creatinine measurement (mass/volume)Ordered By: Norma Crow on 03-26-2025 Creatinine [Mass/Vol] 1.08 mg/dL 0.70-1.20 [facility] Serum glucose measurement (m ass/volume)Ordered By: Norma Crow on 03-26-2025 Glucose [Mass/Vol] 125 mg/dL High 70-99 [facility] Serum or plasma calcium rigoberto urement (mass/volume)Ordered By: Norma Crow on 03-26-2025 Calcium [Mass/Vol] 9.1 mg/dL 7.6-11.0 [facility] Serum or plasma urea nitroge n measurement (mass/volume)Ordered By: Norma Crow on 03-26-2025 Urea nitrogen [Mass/Vol] 11 mg/dL 4-19 [facility] Sodium levelOrdered By: Jayda Crow on 03-26-2025 Sodium [Moles/Vol] 140 mmol/L 133-145 [facility] TSH DL <= 0.005 mIU/L QnOrde red By: Norma Crow on 03-26-2025 TSH Qn 2.340 uIU/mL 0.300-4.200 [facility] Thyroid Stim Hormone (TSH)on 03-26-2025 TSH 2.340 uIU/mL Normal 0.300-4.200 [facility] Comment on above: Performed By: #### L 300.4310 #### [facility] [place], [address] White blood cell (WBC) count Ordered By: Norma Crow on 03-26-2025 WBC (Bld) [#/Vol] 8.8 10*3/uL 4.4-11.0 [facility] Absolute lymphocyte countOrd ered By: Norma Crow on 03-12-2025 Lymphocytes Auto (Unsp spec) [#/Vol] 2.15 10*3/uL 0.83-4.51 [facility] Absolute neutrophil countOrd ered By: Norma Crow on 03-12-2025 Neutrophils (Bld) [#/Vol] 6.3 10*3/uL 2.0-7.7 [facility] Anion gap in Serum or Plasma Ordered By: Norma Crow on 03-12-2025 Anion gap [Moles/Vol] 15 mmol/L 5-15 [facility] Automated lymphocyte count a s percentage of total leukocytesOrdered By: Norma Crow on 03-12-2025 Lymphocytes/100 WBC Auto (Unsp spec) 22.6 % - [facility] BUN/creatinine ratioOrdered By: Norma Crow on 03-12-2025 Urea nitrogen/Creatinine [Mass ratio] 12.1 mg/mg 10- [facility] Basic Metabolic Profile (BMP )on 03-12-2025 BUN/CRE 12.1 RATIO Normal 06-24 [facility] Comment on above: Performed By: #### L 300.8000 #### [facility] [address] [place], [address] Calcium [Mass/Vol] 9.3 mg/dL Normal 7.6-11.0 [facility] Comment on above: Performed By: #### L 300.8000 #### [facility] [address] [place], [address] Chloride [Moles/Vol] 103 mmol/L Normal 98-108 [facility] Comment on above: Performed By: #### L 300.8000 #### [facility] [address] [place], [address] CO2 [Moles/Vol] 20.0 mmol/L Low 21.0-32.0 [facility] Comment on above: Performed By: #### L 300.8000 #### [facility] [address] [place], [address] Creatinine [Mass/Vol] 0.99 mg/dL Normal 0.70-1.20 [facility] Comment on above: Performed By: #### L 300.8000 #### [facility] [address] [place], [address] GAP 15 Normal 5-15 [facility] Comment on above: Performed By: #### L 300.8000 #### [facility] [address] [place], [address] GFR/1.73 sq M.predicted among non-blacks MDRD (S/P/Bld) [Vol rate/Area] 90 mL/min/{1.73_m2} Normal >60 [facility] Comment on above: Result Comment: mL/m in/1.73m2 CKD-EPI Creatinine Equation (2020) Performed By: #### L 300.8000 #### [facility] [address] [place], [address] Glucose [Mass/Vol] 107 mg/dL High 70-99 [facility] Comment on above: Performed By: #### L 300.8000 #### [facility] [address] [place], [address] Potassium [Moles/Vol] 3.7 mmol/L Normal 3.3-5.1 [facility] Comment on above: Performed By: #### L 300.8000 #### [facility] [address] [place], [address] Sodium [Moles/Vol] 138 mmol/L Normal 133-145 [facility] Comment on above: Performed By: #### L 300.8000 #### [facility] [address] [place], [place], [id number] Urea nitrogen [Mass/Vol] 12 mg/dL Normal 4-19 [facility] Comment on above: Performed By: #### L 300.8000 #### [facility] [address] [place], [place], [id number] [phone] Basophil percentageOrdered B y: Norma Crow on 03-12-2025 Basophils/100 WBC (Bld) 1.3 % High 0-1 [facility] Bilirubin directOrdered By: Norma Crow on 03-12-2025 Bilirubin.direct [Mass/Vol] 0.20 mg/dL 0.00-0.30 [facility] Bilirubin, totalOrdered By: Norma Crow on 03-12-2025 Bilirubin [Mass/Vol] 0.57 mg/dL 0.00-1.30 [facility] CBC W/Diff, Automatedon Absolute Lymph 2.15 X10 3/uL Normal 0.83-4.51 [facility] Comment on above: Performed By: #### L 300.8000 #### [facility] [address] [place], [address] Absolute Neut 6.3 X10 3/uL Normal 2.0-7.7 [facility] Comment on above: Performed By: #### L 300.8000 #### [facility] [address] [place], [address] Basophils/100 WBC (Bld) 1.3 % High 0-1 [facility] Comment on above: Performed By: #### L 300.8000 #### [facility] [address] [place], [address] Eosinophils/100 WBC (Bld) 1.8 % Normal 0-5 [facility] Comment on above: Performed By: #### L 300.8000 #### [facility] [address] [place], [address] Erythrocyte distribution width (RBC) [Ratio] 13.2 % Normal 11.6-14.6 [facility] Comment on above: Performed By: #### L 300.8000 #### [facility] [place], [address] Hematocrit (Bld) [Volume fraction] 45.7 % Normal 40-54 [facility] Comment on above: Performed By: #### L 300.8000 #### [facility] [address] [place], [address] Hemoglobin (Bld) [Mass/Vol] 15.9 g/dL Normal 13.0-16.5 [facility] Comment on above: Performed By: #### L 300.8000 #### [facility] [address] [place], [address] IG% 0.300 Normal 0.0-0.9 [facility] Comment on above: Result Comment: IG% - Immature Granulocytes (promyelocytes, myelocytes and metamyelocytes) > 1% indicates that a LEFT SHIFT is Present. Performed By: #### L 300.8000 #### [facility] [address] [place], [address] Lymphocytes/100 WBC (Bld) 22.6 % Normal 19-41 [facility] Comment on above: Performed By: #### L 300.8000 #### [facility] [address] [place], [address] MCH (RBC) [Entitic mass] 30.2 pg Normal 27.0-32.0 [facility] Comment on above: Performed By: #### L 300.8000 #### [facility] [address] [place], [address] MCHC (RBC) [Mass/Vol] 34.8 g/dL Normal 32-36 [facility] Comment on above: Performed By: #### L 300.8000 #### [facility] [address] [place], [address] MCV (RBC) [Entitic vol] 86.9 fL Normal 80-94 [facility] Comment on above: Performed By: #### L 300.8000 #### [facility] [address] [place], [address] Monocytes/100 WBC (Bld) 8.3 % Normal 0-10 [facility] Comment on above: Performed By: #### L 300.8000 #### [facility] [address] [place], [address] Neutrophils/100 WBC (Bld) 65.7 % Normal 47-70 [facility] Comment on above: Performed By: #### L 300.8000 #### [facility] [address] [place], [address] Nucleated RBC (Bld) [#/Vol] 0 10*3/uL Normal 0-5 [facility] Comment on above: Performed By: #### L 300.8000 #### [facility] [address] [place], [address] Platelet mean volume (Bld) [Entitic vol] 10.1 fL Normal 6.2-12.0 [facility] Comment on above: Performed By: #### L 300.8000 #### [facility] [address] [place], [address] Platelets (Bld) [#/Vol] 344 10*3/uL Normal 150-450 [facility] Comment on above: Performed By: #### L 300.8000 #### [facility] [address] [place], [address] RBC (Bld) [#/Vol] 5.26 10*6/uL Normal 4.6-6.2 [facility] Comment on above: Performed By: #### L 300.8000 #### [facility] [address] [place], [address] ( RDW SD 41.1 fl Normal 35.1-43.9 [facility] Comment on above: Performed By: #### L 300.8000 #### [facility] [address] [place], [address] WBC (Bld) [#/Vol] 9.5 10*3/uL Normal 4.4-11.0 [facility] Comment on above: Performed By: #### L 300.8000 #### [facility] [address] [place], [address] Calculated very low density lipoprotein (VLDL) cholesterol measurementOrdered By: Norma Crow on 03-12-2025 Calculated very low density lipoprotein (VLDL) cholesterol measurement 36 mg/dL 5-40 [facility] Carbon dioxide, total [Moles /volume] in Central venous bloodOrdered By: Norma Crow on 03-12-2025 CO2 [Moles/Vol] 20.0 mmol/L Low 21.0-32.0 [facility] Cardiology Visit Reporton Cardiology Visit Report [facility] [address] [place], [place] [address] OFFICE VISIT Date of Service: 03/12/25 MR#: [id number] Acct: [id number] Name: ARGELIA COPELAND Rep #: [id number] : 1970 Provider: BECKY arana Age/Sex: 54/M Location: [facility] Status: Signed HPI HPI History of Present [...] percutaneous intervention of an unknown artery at [facility] with Dr Nguyen. Patient presented to the [...] Method room air Intake Visit Reasons: S/P [facility] 7/2 NSTEMI Allergies bee venom protein (honey [...] #30 tabs 03/12/25 Rx PFSH Medical History Wears glasses Cancer Arthritis History [...] myocardial infarction (07/22/09) Atherosclerotic heart disease of [place] coronary artery without angina pectoris HTN (hypertension) Morbid obesity with BMI of 40.0-44.9, adult Tobacco use disorder HLD (hyperlipidemia) Family history of ischemic heart disease Surgical History History of coronary artery stent placement S/P umbilical hernia repair, follow-up exam Hx of surgical procedure History of surgery on arm History of dental surgery Stented coronary artery (07/22/09) Family History Father , Age 57 of [place], had VA/CAD at age 39 CAD (coronary artery disease) Myocardial infarction Mother Hypertension Sister Hypertension Social History household members: other details: mother vernon (more content not included)... Normal [facility] Chloride assayOrdered By: Negrito Crow on 03-12-2025 Chloride [Moles/Vol] 103 mmol/L 98-108 [facility] Eosinophil percentageOrdered By: Norma Crow on 03-12-2025 Eosinophils/100 WBC (Bld) 1.8 % 0-5 [facility] Erythrocyte distribution wid th ratioOrdered By: Norma Crow on 03-12-2025 Erythrocyte distribution width (RBC) [Ratio] 13.2 % 11.6-14.6 [facility] Erythrocyte distribution wid th standard deviationOrdered By: Norma Crow on 03-12-2025 Erythrocyte distribution width (RBC) [Ratio] 41.1 fl 35.1-43.9 [facility] Glomerular filtration rate ( GFR) estimation/1.73 sq m using serum, plasma, or whole bOrdered By: Norma Crow on 03-12-2025 GFR/1.73 sq M.predicted among non-blacks MDRD (S/P/Bld) [Vol rate/Area] 90 mL/min/{1.73_m2} >60 [facility] Comment on above: mL/min/1.73m2 CKD-EP I Creatinine Equation (2020) Hematocrit Auto (Bld) [Volum e fraction]Ordered By: Norma Crow on 03-12-2025 Hematocrit (Bld) [Volume fraction] 45.7 % 40-54 [facility] Hemoglobin measurementOrdere d By: Norma Crow on 03-12-2025 Hemoglobin (Bld) [Mass/Vol] 15.9 g/dL 13.0-16.5 [facility] Immature granulocytes/100 WB C Auto (Bld)Ordered By: Norma Crow on 03-12-2025 Immature granulocytes/100 WBC (Bld) 0.300 % 0.0-0.9 [facility] Comment on above: IG% - Immature Granu locytes (promyelocytes, myelocytes and metamyelocytes) > 1% indicates that a LEFT SHIFT is Present. LDL calc ser/plasOrdered By: Norma Crow on 03-12-2025 Cholesterol in LDL [Mass/Vol] 144 mg/dL [facility] Comment on above: Gyzozvpfeh=659-266 m g/dL & Higher Yizf=627 mg/dL or greater Laboratory - Chemistry and C hemistry - challengeOrdered By: Norma Crow on 03-12-2025 AST [Catalytic activity/Vol] 21 U/L <38 [facility] Lipid Profileon 03-12-2025 CHOL:HDL 5.74 Normal [facility] Comment on above: Performed By: #### L 300.8000 #### [facility] [address] [place], [address] (569) Cholesterol [Mass/Vol] 218 mg/dL High <=[address] [facility] Comment on above: Result Comment: Chol esterol level, Desirable <200 mg/dL Borderline high cholesterol 200-239 mg/dL High cholesterol >=240 mg/dL Recommendations of the NCEP Adult Treatment Panel for the following risk-cutoff thresholds for the [place] population. Performed By: #### L 300.8000 #### [facility] [address] [place], [address] Cholesterol in HDL [Mass/Vol] 38 mg/dL Low [facility] Comment on above: Result Comment: Leanna onal Cholesterol Education Program (NCEP) guidelines: <40 mg/dL: Low HDL-cholesterol (major risk factor for CHD) >= 60 mg/dL: High HDL-cholesterol (negative risk factor for CHD) HDL-cholesterol is affected by a number of factors, e.g. smoking, exercise, hormones, sex and age. Performed By: #### L 300.8000 #### [facility] [address] [place], [address] (557) Cholesterol in LDL [Mass/Vol] 144 mg/dL Normal [facility] Comment on above: Result Comment: Bord yoyzod=325-559 mg/dL Higher Iotv=813 mg/dL or greater Performed By: #### L 300.8000 #### [facility] [address] [facility] [address] [place], [place], [address] Cholesterol in VLDL [Mass/Vol] 36 mg/dL Normal 5-40 [facility] Comment on above: Performed By: #### L 300.8000 #### [facility] [address] [place], [place], [address] Triglyceride [Mass/Vol] 178 mg/dL Normal [facility] Comment on above: Result Comment: The drugs N-Acetylcysteine and Metamizole may falsely depress this assay. Normal range: <150 mg/dL Borderline High: 150-199 mg/dL High: 200-499 mg/dL Very High: >500 mg/dL Performed By: #### L 300.8000 #### [facility] [address] [facility] [address] [place], [place], [address] Liver Profileon 03-12-2025 Bilirubin.direct [Mass/Vol] 0.20 mg/dL Normal 0.00-0.30 [facility] Comment on above: Performed By: #### L 300.4310, L300.3900 #### [facility] [address] [facility] [address] [place], [place], [address] MCV (mean corpuscular volume ) determinationOrdered By: Norma Crow on 03-12-2025 MCV (RBC) [Entitic vol] 86.9 fL 80-94 [facility] Magnesiumon 03-12-2025 Magnesium [Mass/Vol] 1.8 mg/dL Normal 1.5-2.2 [facility] Comment on above: Performed By: #### L 300.8000 #### [facility] [address] [facility] [address] [place], [place], [address] Magnesium measurement (mass/ volume)Ordered By: Norma Crow on 03-12-2025 Magnesium (Unsp spec) [Mass/Vol] 1.8 mg/dL 1.5-2.2 [facility] Mean corpuscular hemoglobin (MCH) determinationOrdered By: Norma Crow on 03-12-2025 MCH (RBC) [Entitic mass] 30.2 pg 27.0-32.0 [facility] Mean corpuscular hemoglobin concentration (MCHC) determinationOrdered By: Norma Crow on 03-12-2025 MCHC (RBC) [Mass/Vol] 34.8 g/dL 32-36 [facility] Mean platelet volume determi nationOrdered By: Norma Crow on 03-12-2025 Platelet mean volume (Bld) [Entitic vol] 10.1 fL 6.2-12.0 [facility] Monocyte percentageOrdered B y: Norma Crow on 03-12-2025 Monocytes/100 WBC (Bld) 8.3 % 0-10 [facility] Neutrophil percentageOrdered By: Norma Crow on 03-12-2025 Neutrophils/100 WBC (Bld) 65.7 % 47-70 [facility] Nucleated red blood cell per centageOrdered By: Norma Crow on 03-12-2025 Nucleated RBC/100 WBC (Bld) [Ratio] 0 % 0-5 [facility] Platelet countOrdered By: Negrito Crow on 03-12-2025 Platelets (Bld) [#/Vol] 344 10*3/uL 150-450 [facility] Potassium measurement (mass/ volume)Ordered By: Norma Crow on 03-12-2025 Potassium (Unsp spec) [Mass/Vol] 3.7 mmol/L 3.3-5.1 [facility] RBC Auto (Bld) [#/Vol]Ordere d By: Norma Crow on 03-12-2025 RBC (Bld) [#/Vol] 5.26 10*6/uL 4.6-6.2 [facility] Screening total cholesterol/ high density lipoprotein (HDL) cholesterol ratioOrdered By: Norma Crow on 03-12-2025 Cholesterol.total/Lenore sterol in HDL [Mass ratio] 5.74 {ratio} [facility] Serum creatinine measurement (mass/volume)Ordered By: Norma Crow on 03-12-2025 Creatinine [Mass/Vol] 0.99 mg/dL 0.70-1.20 [facility] Serum globulin measurementOr dered By: Norma Crow on 03-12-2025 Globulin (S) [Mass/Vol] 3.3 g/dL 2.2-4.2 [facility] Serum glucose measurement (m ass/volume)Ordered By: Norma Crow on 03-12-2025 Glucose [Mass/Vol] 107 mg/dL High 70-99 [facility] Serum or plasma alanine yang otransferase (ALT) measurementOrdered By: Norma Crow on 03-12-2025 ALT [Catalytic activity/Vol] 31 U/L <47 [facility] Serum or plasma albumin rigoberto urement (mass/volume)Ordered By: Norma Crow on 03-12-2025 Albumin [Mass/Vol] 4.1 g/dL 3.5-5.0 [facility] Serum or plasma alkaline thad sphatase measurementOrdered By: Norma Crow on 03-12-2025 ALP [Catalytic activity/Vol] 110 U/L 40-129 [facility] Serum or plasma calcium rigoberto urement (mass/volume)Ordered By: Norma Crow on 03-12-2025 Calcium [Mass/Vol] 9.3 mg/dL 7.6-11.0 [facility] Serum or plasma cholesterol in HDL measurement (mass/volume)Ordered By: Norma Crow on 03-12-2025 Cholesterol in HDL [Mass/Vol] 38 mg/dL Low >40 [facility] Comment on above: National Cholesterol Education Program (NCEP) guidelines:<40 mg/dL: Low HDL-cholesterol (major risk factor for CHD)>= 60 mg/dL: High HDL-cholesterol (negative risk factor for CHD)HDL-cholesterol is affected by a number of factors, e.g. smoking, exercise, hormones, sex and age. Serum or plasma cholesterol measurement (mass/volume)Ordered By: Norma Crow on 03-12-2025 Cholesterol [Mass/Vol] 218 mg/dL High <[address] [facility] Comment on above: Cholesterol level, D esirable <200 mg/dLBorderline high cholesterol 200-239 mg/dLHigh cholesterol >=240 mg/dLRecommendations of the NCEP Adult Treatment Panel for the following risk-cutoff thresholds for the [place] population. Serum or plasma urea nitroge n measurement (mass/volume)Ordered By: Norma Crow on 03-12-2025 Urea nitrogen [Mass/Vol] 12 mg/dL 4-19 [facility] Sodium levelOrdered By: Jayda Crow on 03-12-2025 Sodium [Moles/Vol] 138 mmol/L 133-145 [facility] Total proteinOrdered By: Parviz Crow on 03-12-2025 Protein [Mass/Vol] 7.4 g/dL 5.9-8.4 [facility] Triglycerides measurementOrd ered By: Norma Crow on 03-12-2025 Triglyceride [Mass/Vol] 178 mg/dL <199 [facility] Comment on above: The drugs N-Acetylcy steine and Metamizole may falsely depress this assay. Normal range: <150 mg/dLBorderline High: 150-199 mg/dLHigh: 200-499 mg/dLVery High: >500 mg/dL White blood cell (WBC) count Ordered By: Norma Crow on 03-12-2025 WBC (Bld) [#/Vol] 9.5 10*3/uL 4.4-11.0 [facility] 12 Lead EKGon 03-06-2025 12 Lead EKG [facility] [address] [place] [address] 12 Lead EKG 03/06/25 0756 MR#: [id number] Acct: [id number] Name: ARGELIA COPELAND Rep #: [id number] : 1970 54 From: Christiano Hatfield MD Attending Dr: Dr. Sam Cuellar MD Status: ADM IN Ordering Dr: Sam Cuellar MD Date: 03/06/25 Location: [facility] Sex: M C Admitted: 03/04/25 Test Reason [...] found Confirmed by CHRISTIANO HATFIELD MD ([id number]), film editor supervisor PEPPER HARGROVE ([id number]) on 03/06/2025 1:52:25 PM Referred By: Hamilton Corral Confirmed By: CHRISTIANO HATFIELD MD 03/06/25 1352 Date Christiano Hatfield MD CC: Dr. Hamilton Corral DO; Dr. Eric Odom MD; Dr. Sam Cuellar MD Signed Normal [facility] Activated partial thrombopla stin time (aPTT) in platelet poor plasma by coagulation aOrdered By: Sam Cuellar on 03-06-2025 aPTT Coag (PPP) [Time] 23.8 s Low 24.1-36.[address] [facility] Anion gap in Serum or Plasma Ordered By: Benji Florez on 03-06-2025 Anion gap [Moles/Vol] 16 mmol/L High 5-15 [facility] BUN/creatinine ratioOrdered By: Benji Florez on 03-06-2025 Urea nitrogen/Creatinine [Mass ratio] 11.8 mg/mg 10-20 [facility] Bilirubin, totalOrdered By: Benji Florez on 03-06-2025 Bilirubin [Mass/Vol] 0.35 mg/dL 0.00-1.30 [facility] CVS/PCIREPORTon 03-06-2025 CVS/PCIREPORT [facility] [address] [place] [address] MR#: [id number] Acct: [id number] Name: ARGELIA COPELAND Rep #: [id number] : 1970 54 From: Haritha Hernandez MD [...] been noncompliant with, no follow-up with a reporting specialist since 2008. Based on the clinical presentation he was scheduled for cardiac catheterization today. Patient treated with medical therapy in the form of aspirin, heparin. He could not tolerate statin. Consent; Risk and benefits of the procedure explained in detail patient elected to proceed informed consent obtained. Access 6 Spanish sheath placed in the right radial artery. Diagnostic catheter used 1. 5 Spanish Wesley catheter. 2. 5 Spanish JR4 Procedure in detail; Patient brought to the [place] in fasting state Right radial artery area prepped and draped in the usual sterile fashion. With proceed with a diagnostic catheter using 5 Spanish Wesley catheter advancing aortic cannulated left main Selective angiographic the left coronary system were obtained Following this catheter exchanged for 5 Spanish JR4 Cross the aortic valve in place [...] therapy and advised to follow-up with the reporting specialist here at [facility] for continuation of cardiac care. Patient can be discharged from cardiac standpoint with recommend to start on dual antiplatelet therapy with Plavix aspirin, high-dose statin, beta-hernandez as tolerated. No complication in the [place] Haritha Hernandez MD,[facility] supervisor of instruction 03/06/25 1057 Date Haritha Hernandez MD CC: Dr. Hamilton Corral DO; Dr. Eric Odom MD; Dr. Sam Cuellar MD Date Dictated: 03/06/251040 Date Transcribed: 03/06/251040 Exercise Planner: FB Signed Normal [facility] Carbon dioxide, total [Moles /volume] in Central venous bloodOrdered By: Benji Florez on 03-06-2025 CO2 [Moles/Vol] 21.0 mmol/L 21.0-32.0 [facility] Cardiac catheterization repo rtOrdered By: Haritha Hernandez on 03-06-2025 Cardiac catheterization study [facility] [address] [place] [address] MR#: [id number] Acct: [id number] Name: ARGELIA COPELAND Rep #: [id number] : 1970 54 From: Haritha Hernandez MD [...] been noncompliant with, no follow-up with a reporting specialist since 2008. Based on the clinical presentation he was scheduled for cardiac catheterization today. Patient treated with medical therapy in the form of aspirin, heparin. He could not tolerate statin. Consent; Risk and benefits of the procedure explained in detail patient elected to proceed informed consent obtained. Access 6 Spanish sheath placed in the right radial artery. Diagnostic catheter used 1. 5 Spanish Wesley catheter. 2. 5 Spanish JR4 Procedure in detail; Patient brought to the [place] in fasting state Right radial artery area prepped and draped in the usual sterile fashion. With proceed with a diagnostic catheter using 5 Spanish Wesley catheter advancing aortic cannulated left main Selective angiographic the left coronary system were obtained Following this catheter exchanged for 5 Spanish JR4 Cross the aortic valve in place [...] therapy and advised to follow-up with the reporting specialist here at [facility] for continuation of cardiac care. Patient can be discharged from cardiac standpoint with recommend to start on dual antiplatelet therapy with Plavix aspirin, high-dose statin, beta-hernandez astolerated. No complication in the [place] Haritha Hernandez MD,[facility] supervisor of instruction 03/06/25 1057 Date _ Haritha Hernandez MD CC: Dr. Hamilton Corral DO; Dr. Eric Odom MD; Dr. Sam Cuellar MD ~ Date Dictated: 03/06/25 1041 Date Transcribed: 03/06/25 104 Exercise Planner: FB Signed [facility] Work Phone: Chloride assayOrdered By: Rush Florez on 03-06-2025 Chloride [Moles/Vol] 102 mmol/L 98-108 [facility] Comprehensive Metabolic Prof ilon 03-06-2025 Albumin [Mass/Vol] 3.8 g/dL Normal 3.5-5.0 [facility] Comment on above: Performed By: #### L 499.0042 #### [facility] [address] [place], [place], [address] Albumin/Globulin [Mass ratio] 1.2 {ratio} Normal 0.9-2.4 [facility] Comment on above: Performed By: #### L 499.0042 #### [facility] [address] [place], [place], [address] ALK PHOS 97 U/L Normal 40-129 [facility] Comment on above: Performed By: #### L 499.0042 #### [facility] [address] [place], [place], [address] ALT [Catalytic activity/Vol] 24 U/L Normal <=46 [facility] Comment on above: Performed By: #### L 499.0042 #### [facility] [address] [place], [address] AST [Catalytic activity/Vol] 21 U/L Normal <=37 [facility] Comment on above: Performed By: #### L 499.0042 #### [facility] [address] [place], [address] Bilirubin [Mass/Vol] 0.35 mg/dL Normal 0.00-1.30 [facility] Comment on above: Performed By: #### L 499.0042 #### [facility] [address] [place], [address] BUN/CRE 11.8 RATIO Normal 10-20 [facility] Comment on above: Performed By: #### L 499.0042 #### [facility] [address] [place], [address] Calcium [Mass/Vol] 9.1 mg/dL Normal 7.6-11.0 [facility] Comment on above: Performed By: #### L 499.0042 #### [facility] [address] [place], [address] Chloride [Moles/Vol] 102 mmol/L Normal 98-108 [facility] Comment on above: Performed By: #### L 499.0042 #### [facility] [address] [place], [address] CO2 [Moles/Vol] 21.0 mmol/L Normal 21.0-32.0 [facility] Comment on above: Performed By: #### L 499.0042 #### [facility] [address] [place], [address] Creatinine [Mass/Vol] 0.97 mg/dL Normal 0.70-1.20 [facility] Comment on above: Performed By: #### L 499.0042 #### [facility] [address] [place], [address] ECRCL 147.41 ml/min Normal 50-250 [facility] Comment on above: Performed By: #### L 499.0042 #### [facility] [address] [place], [address] GAP 16 High 5-15 [facility] Comment on above: Performed By: #### L 499.0042 #### [facility] [address] [place], [address] GFR/1.73 sq M.predicted among non-blacks MDRD (S/P/Bld) [Vol rate/Area] 93 mL/min/{1.73_m2} Normal >60 [facility] Comment on above: Result Comment: mL/m in/1.73m2 CKD-EPI Creatinine Equation (2020) Performed By: #### L 499.0042 #### [facility] [address] [place], [address] Globulin (S) [Mass/Vol] 3.1 g/dL Normal 2.2-4.2 [facility] Comment on above: Performed By: #### L 499.0042 #### [facility] [address] [place], [address] Glucose [Mass/Vol] 90 mg/dL Normal 70-99 [facility] Comment on above: Performed By: #### L 499.0042 #### [facility] [address] [place], [address] Potassium [Moles/Vol] 3.8 mmol/L Normal 3.3-5.1 [facility] Comment on above: Performed By: #### L 499.0042 #### [facility] [address] [place], [address] Sodium [Moles/Vol] 139 mmol/L Normal 133-145 [facility] Comment on above: Performed By: #### L 499.0042 #### [facility] [address] [place], [place], [address] T PROT 6.9 g/dL Normal 5.9-8.4 [facility] Comment on above: Performed By: #### L 499.0042 #### [facility] [address] [place], [place], [address] Urea nitrogen [Mass/Vol] 11 mg/dL Normal 4-19 [facility] Comment on above: Performed By: #### L 499.0042 #### [facility] [address] [place], [place], [address] Discharge Instructionon 07-0 Discharge Instruction [facility] Medical Records Department [address] [place] [address] Instructions for Home/Discharge Instructions 03/06/25 1030 MR#: [id number] Acct: [id number] Name: ARGELIA COPELAND Rep #: [id number] : 1970 54 From: Sam Cuellar MD [...] - Angelica Whitman PA [Med Staff - [facility] Practice Prof] - Within 2 Weeks Disposition Disposition (needs filled in before D/C Order can be placed): Home, Self Care 03/06/25 1235 Sam Cuellar MD CC: Dr. Hamilton Corral DO; Dr. Haritha Hernandez MD; Dr. Eric Odom MD Signed Normal [facility] Electrocardiogram reportOrde red By: Christiano Hatfield on 03-06-2025 EKG study [facility] [address] [place] [address] 12 Lead EKG 03/06/25 0756 MR#: [id number] Acct: [id number] Name: ARGELIA COPELAND Rep #:[id number] : 1970 54 From: Christiano Hatfield MD Attending Dr: Dr. Sam Cuellar MD Status: ADM IN Ordering Dr: Sam Cuellar MD Date: 0 03/06/25 Location: U Sex: M C Admitted: 03/04/25 [...] found Confirmed by CHRISTIANO HATFIELD MD ([id number]), film editor supervisor PEPPER HARGROVE ([id number]) on 03/06/2025 1:52:25 PM Referred By: Hamilton Corral Confirmed By: CHRISTIANO HATFIELD MD 03/06/25 1352 Date _ Christiano Hatfield MD CC: Dr. Hamilton Corral, DO; Dr. Eric Odom MD; Dr. Sam Cuellar MD ~ Signed [facility] Other Glomerular filtration rate ( GFR) estimation/1.73 sq m using serum, plasma, or whole bOrdered By: Benji Florez on 03-06-2025 GFR/1.73 sq M.predicted among non-blacks MDRD (S/P/Bld) [Vol rate/Area] 93 mL/min/{1.73_m2} >60 [facility] Comment on above: mL/min/1.73m2 CKD-EP I Creatinine Equation (2020) L501.4021on 03-06-2025 Trop T High Sen 11 ng/L Normal <=22 [facility] Comment on above: Performed By: #### L 300.4310, L300.3900 #### [facility] [address] [facility] [address] [place], [place], [address] Laboratory - Chemistry and C hemistry - challengeOrdered By: Benji Florez on 03-06-2025 AST [Catalytic activity/Vol] 21 U/L <38 [facility] Partial Thromboplast Timeon 03-06-2025 aPTT Coag (Bld) [Time] 23.8 s Low 24.1-36.[address] [facility] Comment on above: Performed By: #### L 300.4310 #### [facility] [address] [place], [place], [address] aPTT Coag (Bld) [Time] 27.4 s Normal 24.1-36.[address] [facility] Comment on above: Performed By: #### L 300.4310 #### [facility] [place], [address] Potassium measurement (mass/ volume)Ordered By: Benji Florez on 03-06-2025 Potassium (Unsp spec) [Mass/Vol] 3.8 mmol/L 3.3-5.1 [facility] Serum creatinine measurement (mass/volume)Ordered By: Benji Florez on 03-06-2025 Creatinine [Mass/Vol] 0.97 mg/dL 0.70-1.20 [facility] Serum globulin measurementOr dered By: Benji Florez on 03-06-2025 Globulin (S) [Mass/Vol] 3.1 g/dL 2.2-4.2 [facility] Serum glucose measurement (m ass/volume)Ordered By: Benji Florez on 03-06-2025 Glucose [Mass/Vol] 90 mg/dL 70-99 [facility] Serum or plasma alanine yang otransferase (ALT) measurementOrdered By: Benji Florez on 03-06-2025 ALT [Catalytic activity/Vol] 24 U/L <47 [facility] Serum or plasma albumin rigoberto urement (mass/volume)Ordered By: Benji Florez on 03-06-2025 Albumin [Mass/Vol] 3.8 g/dL 3.5-5.0 [facility] Serum or plasma albumin/glob ulin mass ratioOrdered By: Benji Florez on 03-06-2025 Albumin/Globulin [Mass ratio] 1.2 {ratio} 0.9-2.4 [facility] Serum or plasma alkaline thad sphatase measurementOrdered By: Benji Florez on 03-06-2025 ALP [Catalytic activity/Vol] 97 U/L 40-129 [facility] Serum or plasma calcium rigoberto urement (mass/volume)Ordered By: Benji Florez on 03-06-2025 Calcium [Mass/Vol] 9.1 mg/dL 7.6-11.0 [facility] Serum or plasma urea nitroge n measurement (mass/volume)Ordered By: Benji Florez on 03-06-2025 Urea nitrogen [Mass/Vol] 11 mg/dL 4-19 [facility] Sodium levelOrdered By: Hima Florez on 03-06-2025 Sodium [Moles/Vol] 139 mmol/L 133-145 [facility] Total proteinOrdered By: Anuj Florez on 03-06-2025 Protein [Mass/Vol] 6.9 g/dL 5.9-8.4 [facility] Troponin T.cardiac [Mass/vol ume] in Serum or Plasma by High sensitivity methodOrdered By: Haritha Hernandez on 03-06-2025 Troponin T.cardiac High sensitivity method [Mass/Vol] 11 ng/L <22 [facility] Comment on above: Delta: 41 on 5-1803 Basic Metabolic Profile (BMP )on 03-05-2025 BUN/CRE 12.6 RATIO Normal 10-20 [facility] Comment on above: Performed By: #### L 499.0043 #### [facility] [address] [place], [address] Calcium [Mass/Vol] 9.2 mg/dL Normal 7.6-11.0 [facility] Comment on above: Performed By: #### L 499.0043 #### [facility] [address] [place], [address] Chloride [Moles/Vol] 104 mmol/L Normal 98-108 [facility] Comment on above: Performed By: #### L 499.0043 #### [facility] [address] [place], [address] CO2 [Moles/Vol] 23.1 mmol/L Normal 21.0-32.0 [facility] Comment on above: Performed By: #### L 499.0043 #### [facility] [address] [place], [address] Creatinine [Mass/Vol] 1.00 mg/dL Normal 0.70-1.20 [facility] Comment on above: Performed By: #### L 499.0043 #### [facility] [address] [place], [address] ECRCL 142.99 ml/min Normal 50-250 [facility] Comment on above: Performed By: #### L 499.0043 #### [facility] [address] [place], [address] GAP 13 Normal 5-15 [facility] Comment on above: Performed By: #### L 499.0043 #### [facility] [address] [place], [address] GFR/1.73 sq M.predicted among non-blacks MDRD (S/P/Bld) [Vol rate/Area] 89 mL/min/{1.73_m2} Normal >60 [facility] Comment on above: Result Comment: mL/m in/1.73m2 CKD-EPI Creatinine Equation (2020) Performed By: #### L 499.0043 #### [facility] [address] [place], [address] Glucose [Mass/Vol] 101 mg/dL High 70-99 [facility] Comment on above: Performed By: #### L 499.0043 #### [facility] [address] [place], [address] Potassium [Moles/Vol] 4.3 mmol/L Normal 3.3-5.1 [facility] Comment on above: Performed By: #### L 499.0043 #### [facility] [address] [place], [address] Sodium [Moles/Vol] 139 mmol/L Normal 133-145 [facility] Comment on above: Performed By: #### L 499.0043 #### [facility] [address] [place], [address] Urea nitrogen [Mass/Vol] 13 mg/dL Normal 4-19 [facility] Comment on above: Performed By: #### L 499.0043 #### [facility] [address] [facility], [address] CBC-Complete Blood [facility] Erythrocyte distribution width (RBC) [Ratio] 13.2 % Normal 11.6-14.6 [facility] Comment on above: Performed By: #### L 499.0043 #### [facility] [address] [place], [address] Hematocrit (Bld) [Volume fraction] 45.3 % Normal 40-54 [facility] Comment on above: Performed By: #### L 499.0043 #### [facility] [address] [place], [address] Hemoglobin (Bld) [Mass/Vol] 15.4 g/dL Normal 13.0-16.5 [facility] Comment on above: Performed By: #### L 499.0043 #### [facility] [address] [place], [address] MCH (RBC) [Entitic mass] 30.0 pg Normal 27.0-32.0 [facility] Comment on above: Performed By: #### L [id number] #### [facility] [address] [place], [address] MCHC (RBC) [Mass/Vol] 34.0 g/dL Normal 32-36 [facility] Comment on above: Performed By: #### L [id number] #### [facility] [address] [place], [address] MCV (RBC) [Entitic vol] 88.1 fL Normal 80-94 [facility] Comment on above: Performed By: #### L 499.0043 #### [facility] [address] [place], [address] Platelet mean volume (Bld) [Entitic vol] 10.0 fL Normal 6.2-12.0 [facility] Comment on above: Performed By: #### L 499.0043 #### [facility] [address] [place], [address] Platelets (Bld) [#/Vol] 325 10*3/uL Normal 150-450 [facility] Comment on above: Performed By: #### L 499.0043 #### [facility] [address] [place], [address] RBC (Bld) [#/Vol] 5.14 10*6/uL Normal 4.6-6.2 [facility] Comment on above: Performed By: #### L 499.0043 #### [facility] [address] [place], [address] RDW SD 42.7 fl Normal 35.1-43.9 [facility] Comment on above: Performed By: #### L 499.0043 #### [facility] [address] [place], [address] WBC (Bld) [#/Vol] 8.6 10*3/uL Normal 4.4-11.0 [facility] Comment on above: Performed By: #### L 499.0043 #### [facility] [address] [place], [address] Calculated very low density lipoprotein (VLDL) cholesterol measurementOrdered By: Hamilton Corral on 03-05-2025 Calculated very low density lipoprotein (VLDL) cholesterol measurement 69 mg/dL High 5-40 [facility] Consultation - Cardiologyon 03-05-2025 Consultation - Cardiology [facility] Medical Records Department [address] [place] [address] Consultation - Cardiology 03/05/25 1320 MR#: [id number] Acct: [id number] Name: ARGELIA COPELAND Rep #: [id number] : 1970 54 From: Haritha Hernandez MD PCP: Dr. Eric Odom MD Status:ADM IN Location: [place] [id number] Assessment Plan Assessment/Plan (1) History of percutaneous [...] and not being seen and followed by reporting specialist since 2008 with a prior history of [...] catheterization/righ t radial artery approach Haritha Hernandez MD,[facility] HPI Consult Data Date of Consult: 03/05/25 HPI Narrative Reason for Consultation: CAD/non-STEMI HPI Narrative: ARGELIA COPELAND, is a 54 M who presents [facility] Medical History (Updated 03/04/25 @ 16:39 by [...] myocardial infarction (07/22/09) Atherosclerotic heart disease of [place] coronary artery without angina pectoris HTN (hypertension) [...] Father , Age 57 of [place], had VA/CAD at age 39 CAD (coronary artery disease) Myocardial infarction Mother Hypertension Sister Hypertension Surgical History (Updated 03/04/25 @ 17:20 by Ingris Browning) History of coronary artery stent placement S/P umbilical hernia repair, follow-up exam Hx of surgical procedure History of surgery on arm History of dental surgery Stented coronary artery (07/22/09) Social History (Reviewed 06/30/25 @ 14:24 by SHERRY Marti household members: other details: mother housing: (more content not included)... Normal [facility] Echocardiogram study reportO rdered By: Haritha Hernandez on 03-05-2025 Study report [facility] Cardiovascular Services [place] Cid [id number] Echo Complete W/ Contrast 03/05/25 1113 MR#: [id number] Acct: [id number] Name: ARGELIA COPELAND Rep #:[id number] : 1970 54 From: Haritha Hernandez MD Attending Dr: Dr. Sam Cuellar MD Status: ADM IN Ordering Dr: Hamilton Corral te: 03/04/25 Location: [facility] Sex: M C Admitted: 03/04/25 Reason For [...] max shira: 68.8 cm/sec Lat Peak E' Hsira: 13.6 cm/sec Med Peak E' Shira: 11.0 [...] Dictated: 03/05/25 1113 Date Transcribed: 03/05/25 162 Exercise Planner: Signed [facility] Work Phone: Electrocardiogram reportOrde red By: Christiano Hatfield on 03-05-2025 EKG study [facility] Services [address] [place] [address] 12 Lead EKG 03/04/25 1332 MR#: [id number] Acct: [id number] Name: ARGELIA COPELAND Rep #:[id number] : 1970 54 From: Christiano Hatfield MD Attending Dr: Dr. Sam Cuellar MD Status: ADM IN Ordering Dr: Anselmo Rios DO Date: Location: [facility] Sex: M C Admitted: 03/04/25 Test Reason : CP Blood Pressure : */* mmHG Vent. Rate : 87 BPM Atrial Rate : 87 BPM P-R Int : 172 ms QRS Dur : 96 ms QT Int : 372 ms P-R-T Axes : 37 63 35 degrees QTcB Int : 447 ms Normal sinus rhythm Normal ECG Confirmed by CHRISTIANO HATFIELD MD ([id number]), film editor supervisor PEPPER HARGROVE ([id number]) on 03/05/2025 1:31:48 PM Referred By: Hamilton Corral Confirmed By: CHRISTIANO HATFIELD MD 03/05/25 1331 Date _ Christiano Hatfield MD CC: Dr. Hamilton Corral DO; Dr. Eric Odom MD; Dr. Sam Cuellar MD; Dr. Anselmo Rios DO ~ Signed [facility] Other Erythrocyte distribution wid th ratioOrdered By: Hamilton Corral on 03-05-2025 Erythrocyte distribution width (RBC) [Ratio] 13.2 % 11.6-14.6 [facility] Erythrocyte distribution wid th standard deviationOrdered By: Hamilton Corral on 03-05-2025 Erythrocyte distribution width (RBC) [Ratio] 42.7 fl 35.1-43.9 [facility] Hematocrit Auto (Bld) [Volum e fraction]Ordered By: Hamilton Corral on 03-05-2025 Hematocrit (Bld) [Volume fraction] 45.3 % 40-54 [facility] Hemoglobin measurementOrdere d By: Hamilton Corral on 03-05-2025 Hemoglobin (Bld) [Mass/Vol] 15.4 g/dL 13.0-16.5 [facility] LDL calc ser/plasOrdered By: Hamilton Corral on 03-05-2025 Cholesterol in LDL [Mass/Vol] 122 mg/dL [facility] Comment on above: Npjuqbkljr=179-645 m g/dL & Higher Ujlm=968 mg/dL or greater Lipid Profileon 03-05-2025 CHOL:HDL 6.16 Normal [facility] Comment on above: Performed By: #### L 499.0043 #### [facility] [address] [place], [place], [address] Cholesterol [Mass/Vol] 228 mg/dL High <=[address] [facility] Comment on above: Result Comment: Chol esterol level, Desirable <200 mg/dL Borderline high cholesterol 200-239 mg/dL High cholesterol >=240 mg/dL Recommendations of the NCEP Adult Treatment Panel for the following risk-cutoff thresholds for the [place] population. Performed By: #### L 499.0043 #### [facility] [address] [place], [place], [address] Cholesterol in HDL [Mass/Vol] 37 mg/dL Low [facility] Comment on above: Result Comment: Leanna onal Cholesterol Education Program (NCEP) guidelines: <40 mg/dL: Low HDL-cholesterol (major risk factor for CHD) >= 60 mg/dL: High HDL-cholesterol (negative risk factor for CHD) HDL-cholesterol is affected by a number of factors, e.g. smoking, exercise, hormones, sex and age. Performed By: #### L 499.0043 #### [facility] [address] [place], [address] Cholesterol in LDL [Mass/Vol] 122 mg/dL Normal [facility] Comment on above: Result Comment: Bord npknnl=709-633 mg/dL Higher Lztb=654 mg/dL or greater Performed By: #### L 499.0043 #### [facility] [address] [place], [address] Cholesterol in VLDL [Mass/Vol] 69 mg/dL High 5-40 [facility] Comment on above: Performed By: #### L 499.0043 #### [facility] [address] [place], [address] Triglyceride [Mass/Vol] 345 mg/dL High [facility] Comment on above: Result Comment: The drugs N-Acetylcysteine and Metamizole may falsely depress this assay. Normal range: <150 mg/dL Borderline High: 150-199 mg/dL High: 200-499 mg/dL Very High: >500 mg/dL Performed By: #### L 499.0043 #### [facility] [address] [place], [address] MCV (mean corpuscular volume ) determinationOrdered By: Hamilton Corral on 03-05-2025 MCV (RBC) [Entitic vol] 88.1 fL 80-94 [facility] Mean corpuscular hemoglobin (MCH) determinationOrdered By: Hamilton Corral on 03-05-2025 MCH (RBC) [Entitic mass] 30.0 pg 27.0-32.0 [facility] Mean corpuscular hemoglobin concentration (MCHC) determinationOrdered By: Hamilton Corral on 03-05-2025 MCHC (RBC) [Mass/Vol] 34.0 g/dL 32-36 [facility] Mean platelet volume determi nationOrdered By: Hamilton Corral on 03-05-2025 Platelet mean volume (Bld) [Entitic vol] 10.0 fL 6.2-12.0 [facility] Partial Thromboplast Timeon 03-05-2025 aPTT Coag (Bld) [Time] 28.1 s Normal 24.1-36.[address] [facility] Comment on above: Performed By: #### L 300.4310 #### [facility] [address] [facility] [place], [address] aPTT Coag (Bld) [Time] 25.2 s Normal 24.1-36.[address] [facility] Comment on above: Performed By: #### L 300.4310 #### [facility] [address] [place], [address] aPTT Coag (Bld) [Time] 25.8 s Normal 24.1-36.[address] [facility] Comment on above: Order Comment: Comme nts: heparin drip Performed By: #### L 300.4310 #### [facility] [address] [place], [address] Platelet countOrdered By: Maulik Corral on 03-05-2025 Platelets (Bld) [#/Vol] 325 10*3/uL 150-450 [facility] RBC Auto (Bld) [#/Vol]Ordere d By: Hamilton Corral on 03-05-2025 RBC (Bld) [#/Vol] 5.14 10*6/uL 4.6-6.2 [facility] Screening total cholesterol/ high density lipoprotein (HDL) cholesterol ratioOrdered By: Hamilton Corral on 03-05-2025 Cholesterol.total/Lenore sterol in HDL [Mass ratio] 6.16 {ratio} [facility] Serum or plasma cholesterol in HDL measurement (mass/volume)Ordered By: Hamilton Corral on 03-05-2025 Cholesterol in HDL [Mass/Vol] 37 mg/dL Low >40 [facility] Comment on above: National Cholesterol Education Program (NCEP) guidelines:<40 mg/dL: Low HDL-cholesterol (major risk factor for CHD)>= 60 mg/dL: High HDL-cholesterol (negative risk factor for CHD)HDL-cholesterol is affected by a number of factors, e.g. smoking, exercise, hormones, sex and age. Serum or plasma cholesterol measurement (mass/volume)Ordered By: Hamilton Corral on 03-05-2025 Cholesterol [Mass/Vol] 228 mg/dL High <201 [facility] Comment on above: Cholesterol level, D esirable <200 mg/dLBorderline high cholesterol 200-239 mg/dLHigh cholesterol >=240 mg/dLRecommendations of the NCEP Adult Treatment Panel for the following risk-cutoff thresholds for the [place] population. Triglycerides measurementOrd ered By: Hamilton Corral on 03-05-2025 Triglyceride [Mass/Vol] 345 mg/dL High <199 [facility] Comment on above: The drugs N-Acetylcy steine and Metamizole may falsely depress this assay. Normal range: <150 mg/dLBorderline High: 150-199 mg/dLHigh: 200-499 mg/dLVery High: >500 mg/dL White blood cell (WBC) count Ordered By: Hamilton Corral on 03-05-2025 WBC (Bld) [#/Vol] 8.6 10*3/uL 4.4-11.0 [facility] 12 Lead EKGon 03-04-2025 12 Lead EKG [facility] Cardi[facility] Services [address] [place] [address] 12 Lead EKG 03/04/25 1332 MR#: [id number] Acct: [id number] Name: ARGELIA COPELAND Rep #: [id number] : 1970 54 From: Christiano Hatfield MD [...] Normal ECG Confirmed by MAURI WOODALL, CHRISTIANO ([id number]), film editor supervisor PEPPER HARGROVE ([id number]) on 03/05/2025 1:31:48 PM Referred By: Hamilton Corral Confirmed By: CHRISTIANO HATFIELD MD 03/05/25 1331 Date Christiano Hatfield MD CC: Dr. Hamilton Corral DO; Dr. Eric Odom MD; Dr. Sam Cuellar MD; Dr. Anselmo Rios DO Signed Normal [facility] Absolute lymphocyte countOrd ered By: Anselmo Rios on 03-04-2025 Lymphocytes Auto (Unsp spec) [#/Vol] 1.63 10*3/uL 0.83-4.51 [facility] Absolute neutrophil countOrd ered By: Anselmo Rios on 03-04-2025 Neutrophils (Bld) [#/Vol] 5.0 10*3/uL 2.0-7.7 [facility] Activated partial thrombopla stin time (aPTT) in platelet poor plasma by coagulation aOrdered By: Anselmo Rios on 03-04-2025 aPTT Coag (PPP) [Time] 23.0 s Low 24.1-36.[address] [facility] Anion gap in Serum or Plasma Ordered By: Anselmo Rios on 03-04-2025 Anion gap [Moles/Vol] 11 mmol/L 5-15 [facility] Automated lymphocyte count a s percentage of total leukocytesOrdered By: Anselmo Rios on 03-04-2025 Lymphocytes/100 WBC Auto (Unsp spec) 22.4 % -41 [facility] BUN/creatinine ratioOrdered By: Anselmo Rios on 03-04-2025 Urea nitrogen/Creatinine [Mass ratio] 11.3 mg/mg 10- [facility] Basic Metabolic Profile (BMP )on 03-04-2025 BUN/CRE 11.3 RATIO Normal 10-20 [facility] Comment on above: Order Comment: REDRA W Performed By: #### L 300.8000 #### [facility] [address] [place], [address] Calcium [Mass/Vol] 8.4 mg/dL Normal 7.6-11.0 [facility] Comment on above: Order Comment: REDRA W Performed By: #### L 300.8000 #### [facility] [address] [place], [address] Chloride [Moles/Vol] 102 mmol/L Normal 98-108 [facility] Comment on above: Order Comment: REDRA W Performed By: #### L 300.8000 #### [facility] [address] [place], [address] CO2 [Moles/Vol] 22.5 mmol/L Normal 21.0-32.0 [facility] Comment on above: Order Comment: REDRA W Performed By: #### L 300.8000 #### [facility] [address] [place], [address] Creatinine [Mass/Vol] 0.95 mg/dL Normal 0.70-1.20 [facility] Comment on above: Order Comment: REDRA W Performed By: #### L 300.8000 #### [facility] [address] [place], [address] ECRCL 151.76 ml/min Normal 50-250 [facility] Comment on above: Order Comment: REDRA W Performed By: #### L 300.8000 #### [facility] [address] [place], [address] GAP 11 Normal 5-15 [facility] Comment on above: Order Comment: REDRA W Performed By: #### L 300.8000 #### [facility] [address] [place], [address] GFR/1.73 sq M.predicted among non-blacks MDRD (S/P/Bld) [Vol rate/Area] 95 mL/min/{1.73_m2} Normal >60 [facility] Comment on above: Order Comment: REDRA W Result Comment: mL/m in/1.73m2 CKD-EPI Creatinine Equation (2020) Performed By: #### L 300.8000 #### [facility] [address] [place], [address] Glucose [Mass/Vol] 98 mg/dL Normal 70-99 [facility] Comment on above: Order Comment: REDRA W Performed By: #### L 300.8000 #### [facility] [address] [place], [address] Potassium [Moles/Vol] 4.0 mmol/L Normal 3.3-5.1 [facility] Comment on above: Order Comment: REDRA W Performed By: #### L 300.8000 #### [facility] [address] [place], [address] Sodium [Moles/Vol] 136 mmol/L Normal 133-145 [facility] Comment on above: Order Comment: REDRA W Performed By: #### L 300.8000 #### [facility] [address] [place], [address] Urea nitrogen [Mass/Vol] 11 mg/dL Normal 4-19 [facility] Comment on above: Order Comment: REDRA W Performed By: #### L 300.8000 #### [facility] [address] [place], [address] BUN Normal 4-19 [facility] Comment on above: Result Comment: This specimen has been REJECTED due to Laboratory criteria: Hemolyzed. ADITI has been notified of need of recollection. 03/04/25 Julio Cesar Calvo Performed By: #### L 300.8000 #### [facility] [address] [place], [address] BUN/CRE Normal 10-20 [facility] Comment on above: Result Comment: This specimen has been REJECTED due to Laboratory criteria: Hemolyzed. ADITI has been notified of need of recollection. 03/04/25 1518 Susan Calvo Performed By: #### L 300.8000 #### [facility] [address] [facility] [address] Calcium Normal 7.6-11.0 [facility] Comment on above: Result Comment: This specimen has been REJECTED due to Laboratory criteria: Hemolyzed. ADITI has been notified of need of recollection. 03/04/25 1518 Susan Calvo Performed By: #### L 300.8000 #### [facility] [facility] [address] CL Normal 98-108 [facility] Comment on above: Result Comment: This specimen has been REJECTED due to Laboratory criteria: Hemolyzed. ADITI has been notified of need of recollection. 03/04/25 1518 Susan Calvo Performed By: #### L 300.8000 #### [facility] [place], [address] CO2 Normal 21.0-32.0 [facility] Comment on above: Result Comment: This specimen has been REJECTED due to Laboratory criteria: Hemolyzed. ADITI has been notified of need of recollection. 03/04/25 1518 Susan Calvo Performed By: #### L 300.8000 #### [facility] [address] [place], [address] CREAT,SERUM Normal 0.70-1.20 [facility] Comment on above: Result Comment: This specimen has been REJECTED due to Laboratory criteria: Hemolyzed. ADITI has been notified of need of recollection. 03/04/25 1518 Susan Calvo Performed By: #### L 300.8000 #### [facility] [address] [place], [address] eGFR Normal >60 [facility] Comment on above: Result Comment: This specimen has been REJECTED due to Laboratory criteria: Hemolyzed. ADITI has been notified of need of recollection. 03/04/25 1518 Susan Calvo Performed By: #### L 300.8000 #### [facility] [address] [place], [address] GAP Normal 5-15 [facility] Comment on above: Result Comment: This specimen has been REJECTED due to Laboratory criteria: Hemolyzed. ADITI has been notified of need of recollection. 03/04/25 1518 Susan Calvo Performed By: #### L 300.8000 #### [facility] [address] [place], [address] GLU Normal 70-99 [facility] Comment on above: Result Comment: This specimen has been REJECTED due to Laboratory criteria: Hemolyzed. ADITI has been notified of need of recollection. 03/04/25 1518 Susan Calvo Performed By: #### L 300.8000 #### [facility] [address] [place], [address] Potassium Normal 3.3-5.1 [facility] Comment on above: Result Comment: This specimen has been REJECTED due to Laboratory criteria: Hemolyzed. ADITI has been notified of need of recollection. 03/04/25 1518 Susan Calvo Performed By: #### L 300.8000 #### [facility] [address] [place], [address] Basic Metabolic Profile (BMP) Normal 133-145 [facility] Comment on above: Result Comment: This specimen has been REJECTED due to Laboratory criteria: Hemolyzed. ADITI has been notified of need of recollection. 03/04/25 1518 Susan Calvo Performed By: #### L 300.8000 #### [facility] [address] [place], [address] Basic metabolic panel with i onized calcium measurementon 03-04-2025 Basic metabolic 2008 panel with ionized calcium [facility] Basophil percentageOrdered B y: Anselmo Rios on 03-04-2025 Basophils/100 WBC (Bld) 1.1 % High 0-1 [facility] CBC W/Diff, Automatedon 02-05 Absolute Lymph 1.63 X10 3/uL Normal 0.83-4.51 [facility] Comment on above: Performed By: #### L 300.8000 #### [facility] [address] [place], [address] Absolute Neut 5.0 X10 3/uL Normal 2.0-7.7 [facility] Comment on above: Performed By: #### L 300.8000 #### [facility] [address] [place], [address] Basophils/100 WBC (Bld) 1.1 % High 0-1 [facility] Comment on above: Performed By: #### L 300.8000 #### [facility] [address] [place], [address] Eosinophils/100 WBC (Bld) 1.4 % Normal 0-5 [facility] Comment on above: Performed By: #### L 300.8000 #### [facility] [address] [place], [address] Erythrocyte distribution width (RBC) [Ratio] 13.2 % Normal 11.6-14.6 [facility] Comment on above: Performed By: #### L 300.8000 #### [facility] [address] [place], [address] Hematocrit (Bld) [Volume fraction] 45.7 % Normal 40-54 [facility] Comment on above: Performed By: #### L 300.8000 #### [facility] [address] [place], [address] Hemoglobin (Bld) [Mass/Vol] 16.1 g/dL Normal 13.0-16.5 [facility] Comment on above: Performed By: #### L 300.8000 #### [facility] [address] [place], [address] IG% 0.600 Normal 0.0-0.9 [facility] Comment on above: Result Comment: IG% - Immature Granulocytes (promyelocytes, myelocytes and metamyelocytes) > 1% indicates that a LEFT SHIFT is Present. Performed By: #### L 300.8000 #### [facility] [address] [place], [address] Lymphocytes/100 WBC (Bld) 22.4 % Normal 19-41 [facility] Comment on above: Performed By: #### L 300.8000 #### [facility] [address] [place], [address] MCH (RBC) [Entitic mass] 30.4 pg Normal 27.0-32.0 [facility] Comment on above: Performed By: #### L 300.8000 #### [facility] [address] [place], [address] MCHC (RBC) [Mass/Vol] 35.2 g/dL Normal 32-36 [facility] Comment on above: Performed By: #### L 300.8000 #### [facility] [address] [place], [address] MCV (RBC) [Entitic vol] 86.2 fL Normal 80-94 [facility] Comment on above: Performed By: #### L 300.8000 #### [facility] [address] [place], [address] Monocytes/100 WBC (Bld) 5.5 % Normal 0-10 [facility] Comment on above: Performed By: #### L 300.8000 #### [facility] [address] [place], [address] Neutrophils/100 WBC (Bld) 69.0 % Normal 47-70 [facility] Comment on above: Performed By: #### L 300.8000 #### [facility] [address] [place], [address] Nucleated RBC (Bld) [#/Vol] 0 10*3/uL Normal 0-5 [facility] Comment on above: Performed By: #### L 300.8000 #### [facility] [address] [place], [address] Platelet mean volume (Bld) [Entitic vol] 10.5 fL Normal 6.2-12.0 [facility] Comment on above: Performed By: #### L 300.8000 #### [facility] [address] [place], [address] Platelets (Bld) [#/Vol] 322 10*3/uL Normal 150-450 [facility] Comment on above: Performed By: #### L 300.8000 #### [facility] [address] [place], [address] RBC (Bld) [#/Vol] 5.30 10*6/uL Normal 4.6-6.2 [facility] Comment on above: Performed By: #### L 300.8000 #### [facility] [address] [place], [address] RDW SD 41.0 fl Normal 35.1-43.9 [facility] Comment on above: Performed By: #### L 300.8000 #### [facility] [address] [place], [address] WBC (Bld) [#/Vol] 7.3 10*3/uL Normal 4.4-11.0 [facility] Comment on above: Performed By: #### L 300.8000 #### [facility] [address] [place], [address] CTA Chest W/WO Contraston CTA Chest W/WO Contrast [facility] Imaging Services [address] [place] [address] CTA Chest W/WO Contrast MR#: [id number] Acct: [id number] Name: ARGELIA COPELAND Rep #: [id number] : 1970 M 54 From: Cleo Merritt PCP: Dr. Eric Odom MD Status: REG ER Study: CTA Chest W/WO Contrast Date of Exam: 03/04/25 Exam# [id number] Ordering Dr: Anselmo Rios DO PROCEDURE: CTA [...] pulmonary emboli. No focal consolidations. Reading Location: [facility] CC: Dr. Eric Odom MD; Dr. Anselmo Rios DO Exercise Planner: Signed Normal [facility] Carbon dioxide, total [Moles /volume] in Central venous bloodOrdered By: Anselmo Rios on 03-04-2025 CO2 [Moles/Vol] 22.5 mmol/L 21.0-32.0 [facility] Chest PA and Lateralon 03-04 Chest PA and Lateral [facility] Imaging Services [address] [place] [address] Chest PA and Lateral MR#: [id number] Acct: [id number] Name: ARGELIA COPELAND Rep #: [id number] : 1970 M 54 From: Benji Merritt PCP: Dr. Eric Odom MD Status: PRE ER Study: Chest PA and Lateral Date of Exam: 03/04/25 Exam# [id number] Ordering Dr: Anselmo Rios DO PROCEDURE: CHEST [...] acute osseous process is seen. Reading Location: [place] [address] CC: Dr. Eric Odom MD; Dr. Anselmo Rios DO Exercise Planner: Signed Normal [facility] Chloride assayOrdered By: Andre Rios on 03-04-2025 Chloride [Moles/Vol] 102 mmol/L 98-108 [facility] D-Dimer Quantitative (DVT/PE )on 03-04-2025 D-DIMER QUANT 0.59 FEU/ug/m Invalid Interpretation Code 0.27-0.49 [facility] Comment on above: Result Comment: D-Di bautista ELEVATED (>0.49): Additional studies and clinical assessments are indicated to conclude diagnosis of: Deep Vein Thrombosis (DVT) or Pulmonary Embolism (PE) CRITICAL VALUE CALLED TO DEV RICHARDSON 03/04/25 1457 Nyla Mireles. RESULTS READ BACK BY SAME. Performed By: #### L 300.8000 #### [facility] [address] [place], [address] Echo Complete W/ Contraston 03-04-2025 Echo Complete W/ Contrast [facility] Cardiovascular Services [address] [place] [address] Echo Complete W/ Contrast 03/05/25 1113 MR#: [id number] Acct: [id number] Name: ARGELIA COPELAND Rep #: [id number] : 1970 54 From: Haritha Hernandez MD Attending Dr: Dr. Sam Cuellar MD Status: ADM IN Ordering Dr: Hamilton Corral DO Date: 03/04/25 Location: [facility] Sex: M C Admitted: 03/04/25 Reason For [...] MD Date Dictated: 03/05/25 1113 Date Transcribed: 03/05/251620 Exercise Planner: Signed Normal [facility] Emergency Department Summary on 03-04-2025 Emergency Department Summary [facility] Medical Records Department [address] [facility] [place] [address] Emergency Department Summary 03/04/25 MR#: [id number] Acct: [id number] Name: ARGELIA COPELAND Rep #: [id number] : 1970 54 From: Anselmo Rios DO [...] use but denies any IV drug use. PFSH [facility] Medical History Wears glasses Cancer Arthritis [...] myocardial infarction (07/22/09) Atherosclerotic heart disease of [place] coronary artery without angina pectoris HTN (hypertension) [...] DAILY 09/12/23 03/04/25 H istory release (Cymbalta) ashtrinidha root extract 500 mg [...] Father , Age 57 of [place], had VA/CAD at age 39 CAD (coronary artery disease) Myocardial infarction Mother Hypertension Sister Hypertension Surgical History S/P umbilical hernia repair, follow-up exam Hx of surgical procedure History of surgery on arm History of dental surgery Stented coronary artery (07/22/09) Social History household members: other details: mother housing: house current occupational status: employed current occupation: [employer] 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: Former smoker pack-years: 20 alcohol [...] Denies a (more content not included)... Normal [facility] Eosinophil percentageOrdered By: Anselmo Rios on 03-04-2025 Eosinophils/100 WBC (Bld) 1.4 % 0-5 [facility] Erythrocyte distribution wid th ratioOrdered By: Anselmo Rios on 03-04-2025 Erythrocyte distribution width (RBC) [Ratio] 13.2 % 11.6-14.6 [facility] Erythrocyte distribution wid th standard deviationOrdered By: Anselmo Rios on 03-04-2025 Erythrocyte distribution width (RBC) [Ratio] 41.0 fl 35.1-43.9 [facility] Glomerular filtration rate ( GFR) estimation/1.73 sq m using serum, plasma, or whole bOrdered By: Anselmo Rios on 03-04-2025 GFR/1.73 sq M.predicted among non-blacks MDRD (S/P/Bld) [Vol rate/Area] 95 mL/min/{1.73_m2} >60 [facility] Comment on above: mL/min/1.73m2 CKD-EP I Creatinine Equation (2020) H AND P Exam - Hospitaliston 03-04-2025 H&P Exam - Hospitalist [facility] Medical Records Department [address] [place] [address] H P Exam - Hospitalist 03/04/25 1628 MR#: [id number] Acct: [id number] Name: ARGELIA COPELAND Rep #: [id number] : 1970 54 From: Hamilton Corral DO PCP: Dr. Eric Odom MD Status:ADM IN Location: [place] [id number] HPI - General General Date of Admission: 03/04/25 Date of Service: 03/04/25 Chief Complaint: Chest pain HPI Narrative ARGELIA COPELAND, is a 54 M who presented to [facility] ED on 03/04/2025 with chest pain. Patient [...] currently. Will be admitted for further management. [facility] Medical History Wears glasses Cancer Arthritis [...] myocardial infarction (07/22/09) Atherosclerotic heart disease of [place] coronary artery without angina pectoris HTN (hypertension) [...] Father , Age 57 of [place], had VA/CAD at age 39 CAD (coronary artery disease) Myocardial infarction Mother Hypertension Sister Hypertension Surgical History (Reviewed 03/04/25 @ 14: (more content not included)... Normal [facility] Hematocrit Auto (Bld) [Volum e fraction]Ordered By: Anselmo Rios on 03-04-2025 Hematocrit (Bld) [Volume fraction] 45.7 % 40-54 [facility] Hemoglobin A1con 03-04-2025 HbA1c (Bld) [Mass fraction] 5.9 % High <=5.6 [facility] Comment on above: Result Comment: Norm al < 5.7 % Prediabetic 5.7 - 6.4 % Diabetic >or= 6.5 % Please note range changes. Performed By: #### L 922.8020 #### [facility] [address] [place], [address] Hemoglobin A1c percentageOrd ered By: Hamilton Corral on 03-04-2025 HbA1c (Bld) [Mass fraction] 5.9 % High <5.7 [facility] Comment on above: Normal < 5.7 % Predi abetic 5.7 - 6.4 % Diabetic >or= 6.5 % Please note range changes. Hemoglobin measurementOrdere d By: Anselmo Rios on 03-04-2025 Hemoglobin (Bld) [Mass/Vol] 16.1 g/dL 13.0-16.5 [facility] Immature granulocytes/100 WB C Auto (Bld)Ordered By: Anselmo Rios on 03-04-2025 Immature granulocytes/100 WBC (Bld) 0.600 % 0.0-0.9 [facility] Comment on above: IG% - Immature Granu locytes (promyelocytes, myelocytes and metamyelocytes) > 1% indicates that a LEFT SHIFT is Present. International normalized rat io (INR) calculationOrdered By: Anselmo Rios on 03-04-2025 INR Coag (Bld) [Relative time] 1.0 {INR} [facility] L499.0042on 03-04-2025 Trop T High Sen 31 ng/L High <=22 [facility] Comment on above: Result Comment: CRIT ICAL CALLED BY SHARI BREWER TO SEYMOUR RODRIGUES AT 2122 Performed By: #### L 499.0042 #### [facility] [address] [place], [address] Trop T High Sen Normal <=22 [facility] Comment on above: Result Comment: Canc elled via OM: Order Changed Performed By: #### L 300.8000 #### [facility] [address] [place], [address] L499.0043on 03-04-2025 Trop T High Sen 23 ng/L High <=22 [facility] Comment on above: Performed By: #### L 499.0043 #### [facility] [address] [place], [address] Trop T High Sen Normal <=22 [facility] Comment on above: Result Comment: Canc elled via OM: Order Changed Performed By: #### L 499.0043 #### [facility] [address] [place], [address] L501.4021on 03-04-2025 Trop T High Sen 41 ng/L High <=22 [facility] Comment on above: Result Comment: CRIT ICAL CALLED BY SHARI BREWER TO WARREN KUMAR AT 1900 Performed By: #### L 300.8000 #### [facility] [address] [place], [place], [address] Trop T High Sen 34 ng/L High <=22 [facility] Comment on above: Performed By: #### L 300.8000 #### [facility] [address] [place], [place], [address] MCV (mean corpuscular volume ) determinationOrdered By: Anselmo Rios on 03-04-2025 MCV (RBC) [Entitic vol] 86.2 fL 80-94 [facility] Mean corpuscular hemoglobin (MCH) determinationOrdered By: Anselmo Rios on 03-04-2025 MCH (RBC) [Entitic mass] 30.4 pg 27.0-32.0 [facility] Mean corpuscular hemoglobin concentration (MCHC) determinationOrdered By: Anselmo Rios on 03-04-2025 MCHC (RBC) [Mass/Vol] 35.2 g/dL 32-36 [facility] Mean platelet volume determi nationOrdered By: Anselmo Rios on 03-04-2025 Platelet mean volume (Bld) [Entitic vol] 10.5 fL 6.2-12.0 [facility] Monocyte percentageOrdered B y: Anselmo Rios on 03-04-2025 Monocytes/100 WBC (Bld) 5.5 % 0-10 [facility] Neutrophil percentageOrdered By: Anselmovania Rios on 03-04-2025 Neutrophils/100 WBC (Bld) 69.0 % 47-70 [facility] Nucleated red blood cell per centageOrdered By: Anselmovania Rios on 03-04-2025 Nucleated RBC/100 WBC (Bld) [Ratio] 0 % 0-5 [facility] Partial Thromboplast Timeon 03-04-2025 aPTT Coag (Bld) [Time] 24.1 s Normal 24.1-36.[address] [facility] Comment on above: Performed By: #### L 300.4310 #### [facility] [address] [place], [address] aPTT Coag (Bld) [Time] 23.0 s Low 24.1-36.[address] [facility] Comment on above: Performed By: #### L 300.4310, L300.3900 #### [facility] [address] [place], [address] Platelet countOrdered By: Andre Rios on 03-04-2025 Platelets (Bld) [#/Vol] 322 10*3/uL 150-450 [facility] Potassium measurement (mass/ volume)Ordered By: Anselmo Rios on 03-04-2025 Potassium (Unsp spec) [Mass/Vol] 4.0 mmol/L 3.3-5.1 [facility] Prothrombin Time w/INRon INR Coag (PPP) [Relative time] 1.0 {INR} Normal [facility] Comment on above: Performed By: #### L 300.4310, L300.3900 #### [facility] [address] [place], [address] PT Coag (PPP) [Time] 13.4 s Normal 11.7-14.9 [facility] Comment on above: Performed By: #### L 300.4310, L300.3900 #### [facility] [address] [place], [address] Prothrombin timeOrdered By: Anselmo Rios on 03-04-2025 PT Coag (PPP) [Time] 13.4 s 11.7-14.9 [facility] RBC Auto (Bld) [#/Vol]Ordere d By: Anselmo Rios on 03-04-2025 RBC (Bld) [#/Vol] 5.30 10*6/uL 4.6-6.2 [facility] Serum creatinine measurement (mass/volume)Ordered By: Anselmo Rios on 03-04-2025 Creatinine [Mass/Vol] 0.95 mg/dL 0.70-1.20 [facility] Serum glucose measurement (m ass/volume)Ordered By: Anselmo Rios on 03-04-2025 Glucose [Mass/Vol] 98 mg/dL 70-99 [facility] Serum or plasma calcium rigoberto urement (mass/volume)Ordered By: Anselmo Rios on 03-04-2025 Calcium [Mass/Vol] 8.4 mg/dL 7.6-11.0 [facility] Serum or plasma urea nitroge n measurement (mass/volume)Ordered By: Anselmo Rios on 03-04-2025 Urea nitrogen [Mass/Vol] 11 mg/dL 4-19 [facility] Sodium levelOrdered By: Jaydon Rios on 03-04-2025 Sodium [Moles/Vol] 136 mmol/L 133-145 [facility] TSH DL <= 0.005 mIU/L QnOrde red By: Hamilton Corral on 03-04-2025 TSH Qn 1.510 uIU/mL 0.300-4.200 [facility] Thyroid Stim Hormone (TSH)on 03-04-2025 TSH 1.510 uIU/mL Normal 0.300-4.200 [facility] Comment on above: Performed By: #### L 300.4310 #### [facility] [address] [place] [address]. [place], [address] Troponin T.cardiac [Mass/vol ume] in Serum or Plasma by High sensitivity methodOrdered By: Hamilton Corral on 03-04-2025 Troponin T.cardiac High sensitivity method [Mass/Vol] 23 ng/L High <22 [facility] Troponin T.cardiac High sensitivity method [Mass/Vol] 31 ng/L High <22 [facility] Comment on above: CRITICAL CALLED BY Simon BREWER TO SEYMOUR RODRIGUES AT 2122 Troponin T.cardiac [Mass/vol ume] in Serum or Plasma by High sensitivity methodOrdered By: Anselmo Rios on 03-04-2025 Troponin T.cardiac High sensitivity method [Mass/Vol] 34 ng/L High <22 [facility] Troponin T.cardiac [Mass/vol ume] in Serum or Plasma by High sensitivity methodon 03-04-2025 Troponin T.cardiac High sensitivity method [Mass/Vol] [facility] White blood cell (WBC) count Ordered By: Anselmo Rios on 03-04-2025 WBC (Bld) [#/Vol] 7.3 10*3/uL 4.4-11.0 [facility] Emergency Department Summary on 12-13-2024 Emergency Department Summary [facility] Medical Records Department [address] [place] [address] Emergency Department Summary 12/13/24 MR#: [id number] Acct: [id number] Name: ARGELIA COPELAND Rep #: [id number] : 1970 54 From: Wero Santiago DO [...] intact Psych: Cooperative, appropriate mood and affect [facility] Medical History Wears glasses Cancer Arthritis [...] myocardial infarction (07/22/09) Atherosclerotic heart disease of [place] coronary artery without angina pectoris HTN (hypertension) [...] Father , Age 57 of [place], had VA/CAD at age 39 CAD (coronary artery disease) Myocardial infarction Mother Hypertension Sister Hypertension Surgical History S/P umbilical hernia repair, follow-up exam Hx of surgical procedure History of surgery on arm History of dental surgery Stented coronary dav (more content not included)... Normal [facility] Basophil percentageOrdered B y: Eric Odom on 11-04-2023 Chloride [Moles/Vol] 104 mmol/L 98-107 [facility] Cholesterol [Mass/Vol] 232 mg/dL <[address] [facility] Comment on above: <200 mg/dL Desirable 200-240 mg/dL Borderline >240 mg/dL High Risk Glucose [Mass/Vol] 114 mg/dL 74-106 [facility] Comment on above: Fasting Glucose resu lt from 100 to 125 mg/dL suggests IMPAIRED HOMEOSTASIS per A.D.A. criteria. Potassium [Moles/Vol] 3.5 mmol/L 3.5-5.1 [facility] Sodium [Moles/Vol] 137 mmol/L 136-145 [facility] Triglyceride [Mass/Vol] 239 mg/dL <199 [facility] Comment on above: The drugs N-Acetylcy steine and Metamizole may falsely depress this assay.Serum Triglycerides Reference Interval Normal <150 mg/dL Borderline high 150 - 199 mg/dL High 200 - 499 mg/dL Very High > or = 500 mg/dL Laboratory - Chemistry and C hemistry - challengeOrdered By: Eric Odom on 11-04-2023 Cholesterol in HDL [Mass/Vol] 39 mg/dL >40 [facility] Comment on above: The drugs N-Acetylcy steine and Metamizole may falsely depress this assay. Reference Range HDL <40 mg/dL Low HDL Cholesterol HDL >or= 60 mg/dL High HDL Cholesterol Cholesterol in LDL [Mass/Vol] 145 mg/dL 0-130 [facility] CO2 [Moles/Vol] 25.0 mmol/L 21.0-32.0 [facility] Urea nitrogen/Creatinine [Mass ratio] 15.7 mg/mg 10-20 [facility] No Panel InformationOrdered By: Eric Odom on 11-04-2023 Estimated GFR (MDRD) Amer 98 mL/min >60 [facility] Comment on above: GFR Calc Estimated GFR (MDRD) Non-Af Amer 81 mL/min >60 [facility] Comment on above: Non- GFR Calc VLDL Cholesterol 48 mg/dL 5-40 [facility] Serum or plasma calcium rigoberto urement (mass/volume)Ordered By: Eric Odom on 11-04-2023 Calcium [Mass/Vol] 9.0 mg/dL 8.5-10.1 [facility] Serum or plasma creatinine m easurement (mass/volume)Ordered By: Eric Odom on 11-04-2023 Creatinine [Mass/Vol] 1.02 mg/dL 0.70-1.30 [facility] Comment on above: The validity of the calculated GFR & GFRAA in patients over 70 years has not been determined. Clinical correlation is essential. Serum or plasma thyroid stim ulating hormone (TSH) measurement (units/volume)Ordered By: Eric Odom on 11-04-2023 TSH Qn 1.63 uIU/mL 0.358-3.74 [facility] Serum or plasma urea nitroge n measurement (mass/volume)Ordered By: Eric Odom on 11-04-2023 Urea nitrogen [Mass/Vol] 16 mg/dL 7-18 [facility] Thin prep Papanicolaou smear with manual screeningOrdered By: Eric Odom on 11-04-2023 Thin prep Papanicolaou smear with manual screening 8 5-15 [facility] Whole blood hemoglobin A1c/t otal hemoglobin ratio (mass fraction)Ordered By: Eric Odom on 11-04-2023 HbA1c (Bld) [Mass fraction] 6.2 % 3.8-5.6 [facility] Comment on above: Normal < 5.7 % Predi abetic 5.7 - 6.4 % Diabetic >or= 6.5 % Please note range changes. Basophil percentageOrdered B y: Jaylan Kaur on 09-20-2023 Chloride [Moles/Vol] 106 mmol/L 98-107 [facility] Glucose [Mass/Vol] 132 mg/dL 74-106 [facility] Comment on above: Fasting Glucose resu lt greater than or equal to 126 mg/dL suggests DIABETES MELLITUS per A.D.A. criteria. Hemoglobin (Bld) [Mass/Vol] 15.5 g/dL 13.0-16.5 [facility] Potassium [Moles/Vol] 3.6 mmol/L 3.5-5.1 [facility] Sodium [Moles/Vol] 139 mmol/L 136-145 [facility] WBC (Bld) [#/Vol] 9.2 10*3/uL 4.4-11.0 [facility] Determination of erythrocyte mean corpuscular volume (MCV)Ordered By: Jaylan Kaur on 09-20-2023 MCV (RBC) [Entitic vol] 85.4 fL 80-94 [facility] Erythrocyte distribution wid th ratioOrdered By: Jaylan Kaur on 09-20-2023 Erythrocyte distribution width (RBC) [Ratio] 13.3 % 11.6-14.6 [facility] Erythrocyte distribution wid th standard deviationOrdered By: Jaylan Kaur on 09-20-2023 Erythrocyte distribution width (RBC) [Entitic vol] 41.1 fL 35.1-43.9 [facility] Hematocrit Auto (Bld) [Volum e fraction]Ordered By: Jaylan Kaur on 09-20-2023 Hematocrit (Bld) [Volume fraction] 45.0 % 40-54 [facility] Laboratory - Chemistry and C hemistry - challengeOrdered By: Jaylan Kaur on 09-20-2023 CO2 [Moles/Vol] 25.0 mmol/L 21.0-32.0 [facility] Urea nitrogen/Creatinine [Mass ratio] 14.7 mg/mg 10-20 [facility] Laboratory - Hematology and Cell countsOrdered By: Jaylan Kaur on 09-20-2023 MCH (RBC) [Entitic mass] 29.4 pg 27.0-32.0 [facility] MCHC (RBC) [Mass/Vol] 34.4 g/dL 32-36 [facility] Platelets (Bld) [#/Vol] 355 10*3/uL 150-450 [facility] No Panel InformationOrdered By: Jaylna Kaur on 09-20-2023 Estimated GFR (MDRD) Amer 91 mL/min >60 [facility] Comment on above: GFR Calc Estimated GFR (MDRD) Non-Af Amer 75 mL/min >60 [facility] Comment on above: Non- GFR Calc Platelet mean volume Travis-Ec ker (Bld) [Entitic vol]Ordered By: Jaylan Kaur on 09-20-2023 Platelet mean volume (Bld) [Entitic vol] 10.0 fL 6.2-12.0 [facility] RBC Auto (Bld) [#/Vol]Ordere d By: Jaylan Kaur on 09-20-2023 RBC (Bld) [#/Vol] 5.27 10*6/uL 4.6-6.2 [facility] Serum or plasma calcium rigoberto urement (mass/volume)Ordered By: Jaylan Kaur on 09-20-2023 Calcium [Mass/Vol] 9.2 mg/dL 8.5-10.1 [facility] Serum or plasma creatinine m easurement (mass/volume)Ordered By: Jaylan Kaur on 09-20-2023 Creatinine [Mass/Vol] 1.09 mg/dL 0.70-1.30 [facility] Comment on above: The validity of the calculated GFR & GFRAA in patients over 70 years has not been determined. Clinical correlation is essential. Serum or plasma urea nitroge n measurement (mass/volume)Ordered By: Jaylan Kaur on 09-20-2023 Urea nitrogen [Mass/Vol] 16 mg/dL 7-18 [facility] Thin prep Papanicolaou smear with manual screeningOrdered By: Jaylan Kaur on 09-20-2023 Thin prep Papanicolaou smear with manual screening 8 5-15 [facility] MRI ELBOW W/O CONTRAST LEFTo n 01-11-2022 [...] 01/11/2022 11:04:29 AM Ordering Provider: ROBERT BENITES [facility] ([place]) Laboratory - Microbiology an d Antimicrobial susceptibilityon 10-01-2021 SARS-CoV-2 (COVID-19) RNA SHAMIKA+probe Ql (Unsp spec) Not detected Not Detect [facility] Work Phone: Comment on above: Normal Reference Ran ge: Not DetectedMethod:(RT-PCR) real-time reverse transcriptase PCRLuminex CATIE Instrument*The Food and Drug Administration (FDA) has issued an Emergency Use Authorization (EAU) for the CATIE SARS-CoV-2 Assay for the rapid detection of the virus that causes COVID-19. This test has been validated, but the [facility] independent review of this validation is pending.*Negative [...] Ql (Unsp spec) Not detected Not Detect [facility] Work Phone: Comment on above: Normal Reference Ran ge: Not DetectedMethod:(RT-PCR) real-time reverse transcriptase PCRLuminex CATIE Instrument*The Food and Drug Administration (FDA) has issued an Emergency Use Authorization (EAU) for the CATIE SARS-CoV-2 Assay for the rapid detection of the virus that causes COVID-19. This test has been validated, but the [facility] independent review of this validation is pending.*Negative [...] has had recent exposure. Basic Metabolic Panelon 06-1 Calcium [Mass/Vol] 9.1 mg/dL Normal 8.4-10.4 [facility] Comment on above: Performed By: #### H [facility], BMP3 #### [facility] [address] [place] [address] Glucose [Mass/Vol] 87 mg/dL Normal 70-100 [facility] Comment on above: Performed By: #### H SABRINA BMP3 #### [facility] [address] [place] [address] Urea nitrogen [Mass/Vol] 20 mg/dL Normal 7-20 [facility] Comment on above: Performed By: #### H SABRINA, BMP3 #### [facility] [address] [place] [address] Anion gap [Moles/Vol] 8 Normal [facility] Comment on above: Performed By: #### Robin BENNETT BMP3 #### [facility] [address] [place] [address] CO2 [Moles/Vol] 25 mmol/L Normal 22-30 [facility] Comment on above: Performed By: #### H SABRINA BMP3 #### [facility] [address] [place] [address] Creatinine [Mass/Vol] 1.09 mg/dL Normal 0.52-1.25 [facility] Comment on above: Performed By: #### H SABRINA BMP3 #### [facility] [address] [place] [address] GFR/1.73 sq M predicted among blacks MDRD (S/P/Bld) [Vol rate/Area] mL/min/{1.73_m2} Normal >60 [facility] Comment on above: Performed By: #### H SABRINA BMP3 #### [facility] [address] [place] [address] GFR/1.73 sq M predicted among non-blacks MDRD (S/P/Bld) [Vol rate/Area] mL/min/{1.73_m2} Normal >60 [facility] Comment on above: Result Comment: Sour ce- MDRD equation with creatinine calibration to IDMS(NKDEP) eGFR not recommended for drug dose adjustment Performed By: #### H SABRINA BMP3 #### [facility] [address] [place] [address] Chloride [Moles/Vol] 107 mmol/L Normal 98-107 [facility] Comment on above: Performed By: #### Robin BENNETT BMP3 #### [facility] [address] [place] [address] Potassium [Moles/Vol] 3.9 mmol/L Normal 3.5-5.1 [facility] Comment on above: Performed By: #### Robin BENNETT BMP3 #### [facility] [address] [place] [address] Sodium [Moles/Vol] 140 mmol/L Normal 135-145 [facility] Comment on above: Performed By: #### H SABRINA BMP3 #### [facility] [address] [place] [address] Hemogramon 02-13-2019 Erythrocyte distribution width (RBC) [Ratio] 13.7 % Normal 11.5-14.5 [facility] Comment on above: Performed By: #### Robin BENNETT BMP3 #### [facility] [address] [place] [address] Hematocrit (Bld) [Volume fraction] 43.6 % Normal 40.0-52.0 [facility] Comment on above: Performed By: #### Robin BENNETT BMP3 #### [facility] [address] [place] [address] Hemoglobin (Bld) [Mass/Vol] 15.0 g/dL Normal 13.0-18.0 [facility] Comment on above: Performed By: #### Robin BENNETT BMP3 #### [facility] [address] [place] [address] MCH (RBC) [Entitic mass] 30.4 pg Normal 26.0-34.0 [facility] Comment on above: Performed By: #### Robin BENNETT BMP3 #### [facility] [address] [place] [address] MCHC (RBC) [Mass/Vol] 34.4 % Normal 32.0-36.0 [facility] Comment on above: Performed By: #### H SABRINA BMP3 #### [facility] [address] [place] [address] MCV (RBC) [Entitic vol] 88.5 fL Normal 80.0-98.0 [facility] Comment on above: Performed By: #### Robin BENNETT BMP3 #### [facility] [address] [place] [address] Platelet mean volume (Bld) [Entitic vol] 7.6 fL Normal 7.4-10.4 [facility] Comment on above: Performed By: #### H SABRINA, BMP3 #### [facility] [employer] [facility] [address] [place] [address] Platelets (Bld) [#/Vol] 264 10*3/uL Normal 140-440 [facility] Comment on above: Performed By: #### H SABRINA, BMP3 #### [facility] [employer] [facility] [address] [place] [address] RBC (Bld) [#/Vol] 4.92 10*6/uL Normal 4.40-5.90 [facility] Comment on above: Performed By: #### H SABRINA, BMP3 #### [facility] [address] [place] [address] WBC (Bld) [#/Vol] 8.5 10*3/uL Normal 3.6-10.7 [facility] Comment on above: Performed By: #### H SABRINA, BMP3 #### [facility] [employer] [facility] [address] [place] [address] Vital Signs Date Time Vital Sign Value Performing Clinician Bradley mccoy 04-12-2025 07:53-0400 Body mass index (BMI) [Ratio] 43.5 kg/m2 Dr. Eric Odom MD Work Phone: [facility] 04-12-2025 07:53-0400 Body weight 162.[address] Eric Odom MD Work Phone: [facility] 04-12-2025 07:53-0400 Diastolic blood pressure 85 mm[Hg] Dr. Eric Odom MD Work Phone: [facility] 04-12-2025 07:53-0400 Heart rate 80 /min Dr. Eric Odom MD Work Phone: [facility] 04-12-2025 07:53-0400 Respiratory rate 18 /min Dr. Eric Odom MD Work Phone: [facility] 04-12-2025 07:53-0400 SaO2% (BldA) [Mass fraction] 96 % Dr. Eric Odom MD Work Phone: [facility] 04-12-2025 07:53-0400 Systolic blood pressure 121 mm[Hg] Dr. Eric Odom MD Work Phone: [facility] 04-12-2025 00:31-0400 Body temperature 98.6 [degF] Dr. Eric Odom MD Work Phone: 0(995)103-055362 [place] [address] 04-12-2025 00:31-0400 Diastolic blood pressure 99 mm[Hg] Dr. Eric Odom MD Work Phone: 2(772)174-504962 [place] [address] 04-12-2025 00:31-0400 Heart rate 91 /min Dr. Eric Odom MD Work Phone: 1(198)241-623962 [place] [address] 04-12-2025 00:31-0400 Respiratory rate 16 /min Dr. Eric Odom MD Work Phone: 2(571)794-745662 [place] [address] 04-12-2025 00:31-0400 SaO2% (BldA) [Mass fraction] 100 % Dr. Eric Odom MD Work Phone: 6(961)550-987118 [address] 04-12-2025 00:31-0400 Systolic blood pressure 132 mm[Hg] Dr. Eric Odom MD Work Phone: 1(623)721-159518 [address] 04-11-2025 21:07-0400 Body height 193.[address] Eric Odom MD Work Phone: 4(167)497-528562 [place] [address] 04-11-2025 21:07-0400 Body mass index (BMI) [Ratio] 45.3 kg/m2 Dr. Eric Odom MD Work Phone: 4(143)846-030718 [address] 04-11-2025 21:07-0400 Body weight 169.[address] Eric Odom MD Work Phone: 0(461)982-223162 [place] [address] 03-26-2025 07:31-0400 Body height 193.[address] Eric Odom MD Work Phone: 1(535)358-886018 [address] 03-26-2025 07:31-0400 Body mass index (BMI) [Ratio] 45.3 kg/m2 Dr. Eric Odom MD Work Phone: 7(490)647-935318 [address] 03-26-2025 07:31-0400 Body weight 169.[address] Eric Odom MD Work Phone: 1(577)134-497962 [place] [address] 03-26-2025 07:31-0400 Diastolic blood pressure 81 mm[Hg] Dr. Eric Odom MD Work Phone: 8(968)015-527562 [place] [address] 03-26-2025 07:31-0400 Heart rate 90 /min Dr. Eric Odom MD Work Phone: 1(907)128-890962 [place] [address] 03-26-2025 07:31-0400 Respiratory rate 22 /min Dr. Eric Odom MD Work Phone: 2(443)603-870562 [place] [address] 03-26-2025 07:31-0400 SaO2% (BldA) [Mass fraction] 94 % Dr. Eric Odom MD Work Phone: 3(831)999-705262 [place] [address] 03-26-2025 07:31-0400 Systolic blood pressure 117 mm[Hg] Dr. Eric Odom MD Work Phone: 9(840)258-463062 [place] [address] 03-12-2025 14:27-0400 Body height 193.[address] Eric Odom MD Work Phone: 3(464)787-743562 [place] [address] 03-12-2025 14:22-0400 Diastolic blood pressure 69 mm[Hg] Dr. Eric Odom MD Work Phone: 9(685)647-369962 [place] [address] 03-12-2025 14:22-0400 Systolic blood pressure 110 mm[Hg] Dr. Eric Odom MD Work Phone: 8(047)417-673662 [place] [address] 03-12-2025 14:21-0400 Body mass index (BMI) [Ratio] 45.3 kg/m2 Dr. Eric Odom MD Work Phone: 0(648)814-397962 [place] [address] 03-12-2025 14:21-0400 Body weight 169.[address] Eric Odom MD Work Phone: 0(342)362-120362 [place] [address] 03-12-2025 14:21-0400 Heart rate 65 /min Dr. Eric Odom MD Work Phone: [facility] 03-12-2025 14:21-0400 Respiratory rate 16 /min Dr. Eric Odom MD Work Phone: [facility] 03-12-2025 14:21-0400 SaO2% (BldA) [Mass fraction] 95 % Dr. Eric Odom MD Work Phone: 3(325)783-195561 [address] [place] [address] 03-06-2025 15:00-0400 Diastolic blood pressure 97 mm[Hg] Dr. Eric Odom MD Work Phone: 3(750)341-618618 [address] 03-06-2025 15:00-0400 Heart rate 67 /min Dr. Eric Odom MD Work Phone: 4(498)646-563662 [place] [address] 03-06-2025 15:00-0400 SaO2% (BldA) [Mass fraction] 96 % Dr. Eric Odom MD Work Phone: 1(740)181-943262 [place] [address] 03-06-2025 15:00-0400 Systolic blood pressure 149 mm[Hg] Dr. Eric Odom MD Work Phone: 7(949)435-615362 [place] [address] 03-06-2025 07:40-0400 Body temperature 98.5 [degF] Dr. Eric Odom MD Work Phone: 0(553)135-994762 [place] [address] 03-06-2025 07:40-0400 Respiratory rate 16 /min Dr. Eric Odom MD Work Phone: 8(868)244-123462 [place] [address] 03-04-2025 17:15-0400 Body height 193.[address] Eric Odom MD Work Phone: 3(566)136-593961 [address] [place] [address] 03-04-2025 17:15-0400 Body mass index (BMI) [Ratio] 46.3 kg/m2 Dr. Eric Odom MD Work Phone: 1(304)971-959462 [place] [address] 03-04-2025 17:15-0400 Body weight 172.[address] Eric Odom MD Work Phone: 7(573)599-846318 [address] 03-04-2025 16:43-0400 Body temperature 98.2 [degF] Dr. Eric Odom MD Work Phone: [facility] 03-04-2025 16:43-0400 Diastolic blood pressure 87 mm[Hg] Dr. Eric Odom MD Work Phone: 3(366)095-954561 [address] [place] [address] 03-04-2025 16:43-0400 Heart rate 55 /min Dr. Eric Odom MD Work Phone: 0(339)639-466562 [place] [address] 03-04-2025 16:43-0400 Respiratory rate 12 /min Dr. Eric Odom MD Work Phone: 3(969)422-398518 [address] 03-04-2025 16:43-0400 SaO2% (BldA) [Mass fraction] 100 % Dr. Eric Odom MD Work Phone: 0(434)285-612462 [place] [address] 03-04-2025 16:43-0400 Systolic blood pressure 144 mm[Hg] Dr. Eric Odom MD Work Phone: 8(310)063-738062 [place] [address] 03-04-2025 13:30-0400 Body height 193.[address] Eric Odom MD Work Phone: 4(959)578-371162 [place] [address] 03-04-2025 13:30-0400 Body mass index (BMI) [Ratio] 47 kg/m2 Dr. Eric Odom MD Work Phone: 4(234)504-845862 [place] [address] 03-04-2025 13:30-0400 Body weight 175.[address] Eric Odom MD Work Phone: 7(805)715-673818 [address] 12-13-2024 09:22-0400 Body temperature 97.9 [degF] Dr. Eric Odom MD Work Phone: 0(575)221-201461 [address] [place] [address] 12-13-2024 09:22-0400 Diastolic blood pressure 77 mm[Hg] Dr. Eric Odom MD Work Phone: 4(677)493-332718 [address] 12-13-2024 09:22-0400 Heart rate 84 /min Dr. Eric Odom MD Work Phone: 1(930)203-530561 [address] [place] [address] 12-13-2024 09:22-0400 Respiratory rate 17 /min Dr. Eric Odom MD Work Phone: 5(856)986-176961 [address] [place] [address] 12-13-2024 09:22-0400 SaO2% (BldA) [Mass fraction] 100 % Dr. Eric Odom MD Work Phone: [facility] 12-13-2024 09:22-0400 Systolic blood pressure 170 mm[Hg] Dr. Eric Odom MD Work Phone: 2(528)254-451918 [address] 12-13-2024 08:22-0400 Body height 193.[address] Eric Odom MD Work Phone: 4(595)988-961262 [place] [address] 12-13-2024 08:22-0400 Body mass index (BMI) [Ratio] 47.9 kg/m2 Dr. Eric Odom MD Work Phone: 1(916)559-900962 [place] [address] 12-13-2024 08:22-0400 Body weight 178.[address] Eric Odom MD Work Phone: 1(434)489-607462 [place] [address] 09-22-2023 16:20-0500 Body temperature 97.5 [degF] Dr. Eric Odom Work Phone: 0(715)647-854862 [place] [address] 09-22-2023 16:20-0500 Diastolic blood pressure 89 mm[Hg] Dr. Eric Odom Work Phone: 1(505)717-932162 [place] [address] 09-22-2023 16:20-0500 Heart rate 77 /min Dr. Eric Odom Work Phone: 7(007)752-027361 [address] [place] [address] 09-22-2023 16:20-0500 Respiratory rate 18 /min Dr. Eric Odom Work Phone: 7(566)989-183861 [address] [place] [address] 09-22-2023 16:20-0500 SaO2% (BldA) [Mass fraction] 94 % Dr. Eric Odom Work Phone: 1(042)643-615218 [address] 09-22-2023 16:20-0500 Systolic blood pressure 139 mm[Hg] Dr. Eric Odom Work Phone: 0(883)593-978861 [address] [place] [address] 09-22-2023 13:10-0500 Body height 193.[address] Eric Odom Work Phone: 3(056)014-757561 [address] [place] [address] 09-22-2023 13:10-0500 Body mass index (BMI) [Ratio] 48.3 kg/m2 Dr. Eric Odom Work Phone: [facility] 09-22-2023 13:10-0500 Body weight [address] Eric Odom Work Phone: [facility] 09-12-2023 14:05-0500 Body mass index (BMI) [Ratio] 47.7 kg/m2 Dr. Eric Odom Work Phone: [facility] 09-12-2023 14:05-0500 Body temperature 97.4 [degF] Dr. Eric Odom Work Phone: [facility] 09-12-2023 14:05-0500 Body weight 178.[address] Eric Odom Work Phone: [facility] 09-12-2023 14:05-0500 Diastolic blood pressure 90 mm[Hg] Dr. Eric Odom Work Phone: 9(165)311-890961 [address] [place] [address] 09-12-2023 14:05-0500 Heart rate 81 /min Dr. Eric Odom Work Phone: 3(425)501-813361 [address] [place] [address] 09-12-2023 14:05-0500 Respiratory rate 18 /min Dr. Eric Odom Work Phone: [facility] 09-12-2023 14:05-0500 SaO2% (BldA) [Mass fraction] 95 % Dr. Eric Odom Work Phone: [facility] 09-12-2023 14:05-0500 Systolic blood pressure 147 mm[Hg] Dr. Eric Odom Work Phone: [facility] 08-08-2023 13:10-0500 Body mass index (BMI) [Ratio] 48.3 kg/m2 Dr. Eric Odom Work Phone: [facility] 08-08-2023 13:10-0500 Body temperature 100 [degF] Dr. Eric Odom Work Phone: [facility] 08-08-2023 13:10-0500 Body weight 180.[address] Eric Odom Work Phone: [facility] 08-08-2023 13:10-0500 Diastolic blood pressure 85 mm[Hg] Dr. Eric Odom Work Phone: [facility] 08-08-2023 13:10-0500 Heart rate 107 /min Dr. Eric Odom Work Phone: [facility] 08-08-2023 13:10-0500 Respiratory rate 16 /min Dr. Eric Odom Work Phone: [facility] 08-08-2023 13:10-0500 SaO2% (BldA) [Mass fraction] 96 % Dr. Eric Odom Work Phone: [facility] 08-08-2023 13:10-0500 Systolic blood pressure 139 mm[Hg] Dr. Eric Odom Work Phone: [facility] 03-24-2022 10:31-0400 Body height 193.[address] Eric Odom Work Phone: [facility] Work Phone: 03-24-2022 10:31-0400 Diastolic blood pressure 98 mm[Hg] Dr. Eric Odom Work Phone: [facility] Work Phone: 03-24-2022 10:31-0400 Systolic blood pressure 142 mm[Hg] Dr. Eric Oodm Work Phone: [facility] Work Phone: 03-24-2022 10:31-0400 Body mass index (BMI) [Ratio] 45.3 kg/m2 Dr. Eric Odom Work Phone: [facility] Work Phone: 03-24-2022 10:31-0400 Body weight 169.[address] Eric Odom Work Phone: [facility] Work Phone: 03-24-2022 10:31-0400 Heart rate 94 /min Dr. Eric Odom Work Phone: [facility] Work Phone: 03-24-2022 10:31-0400 Respiratory rate 18 /min Dr. Eric Odom Work Phone: [facility] Work Phone: 03-24-2022 10:31-0400 SaO2% (BldA) [Mass fraction] 94 % Dr. Eric Odom Work Phone: [facility] Work Phone: 12-20-2021 14:32-0400 Body height 193.[address] Eric Odom Work Phone: [facility] Work Phone: 12-20-2021 14:32-0400 Body mass index (BMI) [Ratio] 45.1 kg/m2 Dr. Eric Odom Work Phone: [facility] Work Phone: 12-20-2021 14:32-0400 Body temperature 97.8 [degF] Dr. Eric Odom Work Phone: [facility] Work Phone: 12-20-2021 14:32-0400 Body weight [address] Eric Odom Work Phone: [facility] Work Phone: 12-20-2021 14:32-0400 Diastolic blood pressure 78 mm[Hg] Dr. Eric Odom Work Phone: [facility] Work Phone: 12-20-2021 14:32-0400 Heart rate 85 /min Dr. Eric Odom Work Phone: [facility] Work Phone: 12-20-2021 14:32-0400 Respiratory rate 14 /min Dr. Eric Odom Work Phone: [facility] Work Phone: 12-20-2021 14:32-0400 SaO2% (BldA) [Mass fraction] 97 % Dr. Eric Odom Work Phone: [facility] Work Phone: 12-20-2021 14:32-0400 Systolic blood pressure 120 mm[Hg] Dr. Eric Odom Work Phone: [facility] Work Phone: 11-17-2021 15:08-0400 Body mass index (BMI) [Ratio] 46.1 kg/m2 Dr. Eric Odom Work Phone: [facility] Work Phone: 11-17-2021 15:08-0400 Body weight 167.[address] Eric Odom Work Phone: [facility] Work Phone: 11-17-2021 15:08-0400 Diastolic blood pressure 80 mm[Hg] Dr. Eric Odom Work Phone: [facility] Work Phone: 11-17-2021 15:08-0400 Heart rate 76 /min Dr. Eric Odom Work Phone: [facility] Work Phone: 11-17-2021 15:08-0400 Respiratory rate 16 /min Dr. Eric Odom Work Phone: [facility] Work Phone: 11-17-2021 15:08-0400 Systolic blood pressure 130 mm[Hg] Dr. Eric Odom Work Phone: [facility] Work Phone: 10-10-2021 15:47-0500 Body mass index (BMI) [Ratio] 46.2 kg/m2 Dr. Eric Odom Work Phone: [facility] Work Phone: 10-10-2021 15:47-0500 Body temperature 97.8 [degF] Dr. Eric Odom Work Phone: [facility] Work Phone: 10-10-2021 15:47-0500 Body weight 167.[address] Eric Odom Work Phone: [facility] Work Phone: 10-10-2021 15:47-0500 Diastolic blood pressure 102 mm[Hg] Dr. Erci Odom Work Phone: [facility] Work Phone: 10-10-2021 15:47-0500 Heart rate 93 /min Dr. Eric Odom Work Phone: [facility] Work Phone: 10-10-2021 15:47-0500 Respiratory rate 18 /min Dr. Eric Odom Work Phone: [facility] Work Phone: 10-10-2021 15:47-0500 SaO2% (BldA) [Mass fraction] 99 % Dr. Eric Odom Work Phone: [facility] Work Phone: 10-10-2021 15:47-0500 Systolic blood pressure 174 mm[Hg] Dr. Eric Odom Work Phone: [facility] Work Phone: Encounters Encounter Date Encounter Type Care Provider Facility Start: 04-12-2025 End: 04-12-2025 Patient encounter procedure Norma Crow NP-C -[facility] Work Phone: Start: 04-12-2025 End: 04-12-[address] Eric Odom MD Work Phone: -[facility] Start: 04-11-2025 End: 04-12-2025 Emergency department patient visit Dr. Eric Odom MD Work Phone: -Emergency Department Work Phone: Start: 03-31-2025 ambulatory Norma Crow NP Facili ty:[facility] Start: 03-31-2025 Registered Referred Norma Crow NP -C -Cardiovascular Services Work Phone: Start: 03-26-2025 End: 03-26-2025 Patient encounter procedure Norma Crow CADMIUM BURNER-C -[facility] Work Phone: Start: 03-26-2025 End: 03-26-[address] Eric Odom MD Work Phone: -[facility] Start: 03-26-2025 End: 03-26-2025 ambulatory Norma Crow CADMIUM BURNER Facility:[facility] Start: 03-12-2025 End: 03-12-2025 Patient encounter procedure Norma Crow CADMIUM BURNER-C -[facility] Work Phone: Start: 03-12-2025 End: 03-12-[address] Eric Odom MD Work Phone: -[facility] Start: 03-12-2025 End: 03-12-2025 ambulatory Norma Crow CADMIUM BURNER Facility:[facility] Start: 03-06-2025 Non-patient / Non-visit Dr. Sam Cuellar MD -[facility] Work Phone: Start: 03-06-2025 Non-patient / Non-visit Dr. Haritha garvey MD -[facility] Start: 03-05-2025 Non-patient / Non-visit Dr. Haritha garvey MD -[facility] Start: 03-05-2025 Non-patient / Non-visit Dr. Sam Cuellar MD -[facility] Work Phone: Start: 03-04-2025 ambulatory Hamilton Corral Fac ility:[facility] Start: 03-04-2025 End: 03-06-2025 Evaluation and management of inpatient Dr. Hamilton Corral DO -Progressive Care Unit Work Phone: Start: 12-13-2024 End: 12-13-2024 Emergency department patient visit Dr. Eric Odom MD Work Phone: -Emergency Department Work Phone: Start: 11-04-2023 End: 11-04-[address] Eric Odom Work Phone: [facility] Work Phone: Start: 11-04-2023 End: 11-04-[address] Eric Odom Work Phone: [facility] Start: 10-06-2023 End: 10-06-[address] Eric Odom Work Phone: [facility] Work Phone: Start: 09-22-2023 Non-patient / Non-visit Dr. Valentina Odom Work Phone: [facility] Start: 09-22-2023 End: 09-22-2023 Admission to same day surgery center [facility] Start: 09-20-2023 End: 09-20-2023 Non-patient / Non-visit Dr. Eric Odom Work Phone: [facility] Work Phone: Start: 09-12-2023 End: 09-12-[address] Eric Odom Work Phone: [facility] Work Phone: Start: 08-08-2023 End: 08-08-[address] Eric Odom Work Phone: [facility] Work Phone: Start: 06-29-2023 End: 06-29-2023 ambulatory [facility] Work Phone: Start: 06-29-2023 End: 06-29-2023 Discharged Recurring [facility] Work Phone: Start: 07-12-2022 End: 07-12-2022 ambulatory [facility] Work Phone: Start: 07-12-2022 End: 07-12-2022 Discharged Recurring [facility] Start: 04-21-[address] Eric Odom Work Phone: [facility] Start: 04-19-2022 End: 04-19-[address] Eric Odom Work Phone: [facility]-Radiology, [place] Start: 03-24-2022 End: 03-24-[address] Eric Odom Work Phone: [facility] Start: 01-11-2022 End: 01-11-2022 Patient encounter procedure ROBERT BENITES MD [facility] Start: 12-20-2021 End: 12-20-2021 Emergency department patient [facility] Start: 11-17-2021 End: 11-17-[address] Eric Odom Work Phone: [facility] Start: 10-10-2021 End: 10-10-2021 Emergency department patient visit Dr. Eric Odom Work Phone: [facility]-Emergency Department Start: 10-01-2021 End: 10-01-[address] Eric Odom Work Phone: [facility]-Laboratory, Specimen Start: 09-21-2021 End: 09-21-[address] [facility] Specimen Start: 09-11-2021 End: 09-11-[address] Eric Odom Work Phone: [facility]-Pulmonary Services/Neurology Procedures Date Procedure Procedure Detail Performing [...] Treatment Date Care Activity Detail Author Start: 04-22-2025 ambulatory Ambulatory Facility:[facility] Start: 04-12-2025 [facility] Start: 03-06-2025 Patient discharge [facility] Start: 03-06-2025 [facility] Start: 03-04-2025 End: 03-04-2025 Following clinical pathway protocol [facility] Start: 03-04-2025 Ambulation without limitation [facility] Start: 03-04-2025 Assessment of risk of venous thromboembolism [facility] Start: 03-04-2025 Insertion of catheter into peripheral vein [facility] Start: 03-04-2025 Measuring intake and output [facility] Start: 03-04-2025 Providing care according to standard [facility] Start: 03-04-2025 Referral to reporting specialist [facility] Start: 03-04-2025 Referral to service [facility] Start: 03-04-2025 [facility] Start: 03-04-2025 Thyroid stimulating hormone measurement [facility] Start: 03-04-2025 Hospital admission, emergency, from emergency room, medical nature [facility] Start: 03-04-2025 End: 03-04-2025 Verification routine [facility] Start: 03-04-2025 Admission procedure [facility] Start: 03-04-2025 [facility] Start: 03-04-2025 End: 03-05-2025 [facility] Start: 03-04-2025 [facility] Start: 12-13-2024 [facility] Start: 09-22-2023 Patient discharge [facility] Start: 09-22-2023 Anesthesia hernia repair lower abdomen nos ANESTH REPAIR OF HERNIA [facility] Start: 09-22-2023 RPR AA HRN 1ST < 3 CM RDC RPR AA HRN 1ST < 3 CM RDC [facility] Basic metabolic 2007 panel with ionized calcium - Serum or Plasma [facility] Basic metabolic 2007 panel with ionized calcium - Serum or Plasma [facility] Cardiac event recording [facility] CBC W Auto Different ial panel - Blood [facility] CBC W Auto Different ial panel - Blood [facility] CTA Chest vessels WO and W contrast IV [facility] Hemoglobin A1c/Hemoglobin.total in Blood [facility] Hepatic function panel [facility] Lipid 1996 panel - S wilman or Plasma [facility] Magnesium measurement [facility] Magnesium measurement [facility] Measurement of respi ratory function [facility] Natriuretic peptide. B prohormone N-Terminal [Mass/volume] in Serum or Plasma [facility] Patient Education [facility] Work Phone: Patient referral [facility] Work Phone: Thyroid stimulating hormone measurement [facility] Troponin T.cardiac [Mass/volume] in Serum or Plasma by High sensitivity method [facility] Troponin T.cardiac [Mass/volume] in Serum or Plasma by High sensitivity method [facility] US Carotid arteries [facility] XR Chest PA and Lateral [facility] Immunizations Immunization Date Immunization Notes Care Provider Fa cility 04-11-2025 tetanus toxoid, redu lupe diphtheria toxoid, and acellular pertussis vaccine, adsorbed Dr. Eric Odom MD Work Phone: [facility] 12-20-2021 tetanus toxoid, redu lupe diphtheria toxoid, and acellular pertussis vaccine, adsorbed Dr. Eric Odom Work Phone: [facility] Payers Date Payer Category Payer Unknown [id number] 2025 Unknown 2024 Self-pay [id number] 2024 Unknown [id number] 2014 Unknown [id number] Unknown [id number] Unknown [id number] 2.16.8 [id number] Unknown [id number] 2.16.8 [id number] Unknown [id number] 2.16.8 40.1.952094.3.579.2.462 Unknown [id number] 2.16.8 40.1.906594.3.579.2.462 Unknown [id number] 2.16.8 40.1.189094.3.579.2.462 Unknown [id number] 2.16.8 40.1.696128.3.579.2.462 Unknown [id number] 2.16.8 40.1.661369.3.579.2.462 Unknown [id number] 2.16.8 40.1.098491.3.579.2.462 Unknown [id number] 2.16.8 40.1.165568.3.579.2.462 Unknown [id number] 2.16.8 40.1.885331.3.579.2.462 Unknown [id number] 2.16.8 40.1.384018.3.579.2.462 Unknown [id number] 2.16.8 40.1.006916.3.579.2.462 Unknown [id number] 2.16.8 40.1.864426.3.579.2.462 Unknown [id number] 2.16.8 [id number] Unknown [id number] 2.16.8 [id number] Social History Date Type Detail Facility Start: 12-20-2021 End: 09-16-2023 Tobacco smoking status IDIS Unknown if ever smoked [facility] Start: 01-01-2021 Cigarettes [facility] Start: 1970 Sex Assigned At Male [facility] Work Phone: Start: 02-19-2014 None [facility] Start: 02-19-2014 With Family [facility] Start: 12-13-2024 End: 04-11-2025 Tobacco smoking status NHIS Ex-smoker (finding) [facility] Start: 12-13-2024 Sex Male (finding) [facility] Medical Equipment Procedure Code Equipment Code Equipment Origin al Text Equipment Identifier Dates Repair, hernia, umbilical, using mesh ([id number]) Extra-gynaecologic al surgical mesh, composite-polymer [id number] [facility] Start: 09-22-2023 Goals Date Patient Goal Desired Activity /State Functional Status Date Assessment Result Facility 03-06-2025 Functional status Ambulates;Up ad kieran [facility] Work Phone: Mental Status Date Assessment Result Facility 03-06-2025 Cognitive function Voice/Name [facility] Work Phone: 03-04-2025 Cognitive function Awake;Alert;A ppropriate;Fol lows Commands [facility] Work Phone: 09-22-2023 Cognitive function Voice/Name [facility] Work Phone: Clinical Notes 07-22-2009 to 04-12-2025 Note Date & Type Note Facility 04-12-2025 Discharge summary [facility] 04-11-2025 Discharge summary Note Date/Time April 12, 2025 12:17am [facility] Medical Records Department [address] [place] [address] Emergency Department Summary 04/11/25 MR#: [id number] Acct: [id number] Name: ARGELIA COPELAND Rep #:[id number] : 1970 55 From: Chet Valdez MD PCP: Dr. Eric Odom MD Status:REG E R Location: ED HPI History of Present Illness HPI Narrative: 55-year-old male history of VA on Plavix and aspirin. Stepped on a piece of metal in his utility room in his house today around 1 PM causing a laceration onthe bottom of his left third toe. He said initially was okay but he has had consistent bleeding tonight. Denies any other complaints says he does not thinkthere is a foreign body. Believes he needs his tetanus updated. Chief Complaint: Laceration Informant: patient Occured/Mechanism Mechanism/Context: Yes injury Onset/Context/Timing Onset: Today and Hours Context: Sudden Onset Timing: Intermittent Current Severity: Mild Maximum Severity: Mild Associated Symptoms Associated Symptoms: Negative for Parasthesia, Weakness or Loss of Funtion Narrative Narrative: 35-year-old male on Plavix and aspirin lacerating the bottom of his left third toe at 1 PM today. 7 intermittent bleeding wanted to have it repaired. Tetanus Immunization: >10 years Prior similar symptoms: No Recent Illness/Hospitalization: No PFSH PFSH Medical History Non-ST elevation VA (NSTEMI) Wears glasses Cancer Arthritis History of [...] myocardial infarction (07/22/09) Atherosclerotic heart disease of [place] coronary artery without angina pectoris HTN (hypertension) Morbid obesity with BMI of 40.0-44.9, adult Tobacco use disorder HLD (hyperlipidemia) Family history of ischemic heart disease Home Medications ?Medication ?Instructions ?Recorded ?Last Taken ?Type metoprolol tartrate 25 mg tablet 25 mg PO BID 10/27/20 03/04/25 History multivitamin 1 tab PO DAILY 03/27/2102/04 History glucosamine HCl 1,500 mg tablet 1,000 mg PO DAILY 08/0503/04/25 History losartan 100 mg tablet 100 mg PO DAILY 11/17/21 History amlodipine 10 mg tablet (Norvasc) 10 mg PO DAILY 09/1203/04/25 History duloxetine 30 mg capsule,delayed 30 mg PO DAILY 03/04/25 History release (Cymbalta) coenzyme Q10 100 mg capsule (Co 300 mg PO DAILY 03/03/25 History Q-10) aspirin 81 mg chewable tablet 81 mg PO BREAKFAST 90 da ys #90 tabs 03/06/25 Unknown Rx clopidogrel 75 mg tablet (Plavix) 75 mg PO DAILY 1 mon th #30 tabs 03/06/25 Unknown Rx ezetimibe 10 mg tablet (Zetia) 10 mg PO QDAY #30 tabs 03/12/25 Unknown Rx evolocumab 140 mg/mL subcutaneous 140 mg subcut Q2W #2 mL 03/26/25 Unknown Rx pen injector (Repatha SureClick) Allergy/AdvReac Type Severity Reaction Status Date / Time bee venom protein (honey bee) Allergy Swelling Verified 04/11/25 21:12 atorvastatin AdvReac Severe Myalgias Verified 04/11/25 21:12 cephalexin (From Keflex) AdvReac GIVES ME Verified 04/11/25 21:12 THE JITTERS shellfish derived AdvReac Nausea/Vom/ Verified 04/11/25 21:12 Diarrhea Family History Father , Age 57 of [place], had VA/CAD at age 39 CAD (coronary artery disease) Myocardial infarction Mother Hypertension Sister Hypertension Surgical History History of coronary artery stent placement S/P umbilical hernia repair, follow-up exam Hx of surgical procedure History of surgery on arm History of dental surgery Stented coronary artery (07/22/09) Social History household members: other details: mother housing: house current occupational status: employed 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[employer] 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: Former smoker pack-years: 20 alcohol intake: never do you feel safe at home: Yes ROS ROS ED ROS Narrative Denies recent illness. Constitutional Constitutional ED: Denies chills or fever(s) Eyes Eyes: Denies blurry vision ENT ENT ED: Denies ear pain Cardiovascular Cardiovascular: Denies chest pain Respiratory/Chest Respiratory/Chest: Denies cough or dyspnea Gastrointestinal Gastrointestinal: Denies abdominal pain Genitourinary Genitourinary ED: Denies dysuria or hematuria Musculoskeletal Musculoskeletal: Denies arthralgias Integumentary Denies abscess Neurologic Neurologic: Denies headache(s) Psychiatric Psychiatric: Denies anxiety or depression Endocrine Endocrinology: Denies polydipsia Hematologic/Lymphatic Hematologic/Lymphatic: Reports easy bleeding Allergic/Immunologic Allergic/Immunologic ED: Denies mouth swelling, tongue swelling or urticaria EXAM Physical Exam Narrative Exam Narrative: Well-appearing 55-year-old male. Vital signs stable afebrile. No acute distress. H EENT exam pupils round reactive light. Mytrex membranes. Lungs clear. Heart regular rhythm rate about 95 no murmur. Abdomen soft nontender. Moving all 4 extremities. The left foot has a bunch of dried blood. The undersurface of the left third toe has about a 2 inch laceration. No infection. No foreign body. He is able to wiggle his toes. Normal touch sensation. Distal knee repaired. Patient is awake and alert. No focal motor or sensory deficits. Const Vital Signs: 04/11/25 21:07 Temperature 98.2 F Temperature Source Oral Pulse Rate 99 Respiratory Rate 18 Blood Pressure 137/103 H Blood Pressure Mean 114 Pulse Ox 99 Oxygen Delivery Method Room Air Positive well nourished and well developed; Negative for cachectic, contracturesor unkempt General Appearance ED: well developed and NAD; Negative for unkempt, cachectic or contractures Nutritional Appearance: Negative for cachectic HEENT Reports moist mucous membranes and other normocephalic, atraumatic and other; Negative for trauma or tenderness Eyes PERRL Neck full ROM and supple Chest Wall inspection of chest normal and palpation of chest normal Resp normal respiratory effort, no retractions and clear to auscultation bilaterally Cardio regular rate, regular rhythm, S1 normal heart sound, S2 normal heart sound and no murmurs Rate: Negative for bradycardia or tachycardic Rhythm: Negative for abnormal rhythm Bruits: Negative for other GI non-tender, non-distended and no masses Auscultation: normoactive bowel sounds Palpation: soft; Negative for tender or guarding Back/Spine no CVA tenderness General Back: Negative for CVA tenderness Cervical Spine: Negative for cervical spine tenderness Thoracic Spine / Upper Back: Negative for thoracic spinal tenderness Lumbar Spine / Lower Back: Negative for lumbar spinal tenderness Extremity normal to inspection and full ROM General Extremety ED: Negative for cyanosis or edema General Extremity: Negative for cyanosis or edema Neuro oriented x3 and CN's II-XII intact bilaterally Sensorium / Orientation: alert, oriented to person, oriented to place and oriented to time; Negative for orientation impaired, confused, lethargic or stuporous Motor Exam: strength 5/5 throughout Psych mental status grossly normal Appearance: Negative for unkempt Skin No no wounds Skin Narrative: Left third toe laceration bottom surface. 2 inches. Currently no active bleeding but dried blood on his foot. Trauma: laceration MDM MDM MDM Narrative Medical decision making narrative: 55-year-old male laceration left third toe. Will need repaired. Area to be cleaned. Locally anesthetized. Washed irrigated and cleaned. Explored. Closedusing 4-0 Ethilon sutures. Tetanus will be updated. History & Record Review Discussion w/independent historian: Patient Additional record(s) reviewed:: Prior inpatient record, Prior outpatient record,Prior ED visit and Prior labs Procedures Lacerations Left third toe laceration repair:: Length: 2 in Depth: Sub Q Shape: Linear Prep: Shure-Clens Laceration repair: Irrigated, Lidocaine, Local, Skin sutures and Wound explored Number of Sutures/[place]: 4 Suture Information: Ethilon, Simple and 4-0 Comment: Left third toe laceration bottom aspect. Approximately 2 inches. Area was locally anesthetized with lidocaine. Proper anesthetic was obtained. It was cleaned thoroughly with Shizzy-Clens then washed with saline and irrigated. No foreign body was noted. No involvement of the bone or joint. No involvement of the tendon. There is no foreign body seen. It was closed using 4 simple interrupted 4-0 Ethilon sutures. Proper hemostasis wound closure obtained. Patient tolerated procedure well. Discharge Plan Triage Chief Complaint: Laceration ED Provider: Chet Valdez Dx/Rx/DC Orders Clinical Impression: Laceration of toe, History of VA (myocardial infarction) Instructions: ED Laceration Extremity Prescriptions: No Action metoprolol tartrate 25 mg [...] 10 mg tablet 10 mg PO DAILY ezetimibe [Zetia] 10 mg tablet 10 mg PO QDAY Qty: 30 11RF Repatha SureClick 140 mg/mL pen injector 140 mg subcut Q2W Qty: 2 6RF multivitamin Tablet 1 tab PO DAILY coenzyme Q10 [Co Q-10] 100 mg capsule 300 mg PO DAILY aspirin 81 mg Tablet,Chewable 81 mg PO BREAKFAST 90 Days Qty: 90 1RF clopidogrel [Plavix] 75 mg tablet 75 mg PO DAILY 30 Days Qty: 30 2RF Primary Care Provider: Eric Odom Referrals: Eric Odom MD [Primary Care Provider] - 10 Day for suture removal Activity Restrictions/Additional Instructions: Keep the foot clean and dry. It can get wet do not let it soak in any bathtub water. When you shower when you are done carefully and gently dry it thoroughly. Tylenol for pain. Watch for any signs of infection such as swelling, redness, pus or streaks of seen return. Clean thoroughly and gently daily. Apply antibiotic ointment daily. Clean witheither soap water or peroxide and water. Clean white socks. Stitches out in 10 days. We can do at your primary care physician's office can do it. Print Language: Faroese Disposition Disposition: Home, Self Care What to do if you have Problems For any increased pain, shortness of breath, bleeding, nausea or vomiting, chestpain, or any unexpected problems, contact your Primary Care Provider. Call [facility] ([phone]) or report to the closest Emergency Room. Call 911 if necessary. 04/12/25 0017 <Electronically signed by Chet Valdez MD> Cosigner Signature (if applicable): CC: Dr. Eric Odom MD ~ Signed [facility] Work Phone: 1(453) 144-736407-22-2025 Radiology Diagnostic study note [facility] Imaging Services [address] [place], [place] [address] Chest PA and Lateral MR#: [id number] Acct: [id number] Name: ARGELIA COPELAND Rep #: [id number] : 1970 M 55 From: Rahel Lopez MD PCP: Dr. Eric Odom MD Status: [facility] Study:Chest PA and Lateral Date of Exam: 03/26/25 Exam# [id number] Ordering Dr: Norma Crow NP [facility] PROCEDURE: CHEST PA AND LATERAL 03/26/2025 REASON FOR EXAM: ROGERS TECHNIQUE: CHEST PA AND LATERAL COMPARISON: 03/04/2025 FINDINGS: No focal consolidation. No pleural effusion or pneumothorax. Cardiac silhouette is within normal limits. No acute fractures. RAD/Chest PA and Lateral IMPRESSION: No focal consolidations. Reading Location: [facility] CC: [facility] Norma Crow; Dr. Eric Odom MD ~ Exercise Planner: Signed [facility]07-02-2025 Discharge summary Author Sam Cuellar [facility] Note Date/Time March 06, 2025 1:22p m [facility] System Medical Records Department [address] [place] [address] Discharge Summary 03/06/25 1235 MR#: [id number] Acct: [id number] Name: NEGRITOCAMARNOLDARGELIA J Rep #:[id number] : 1970 54 From: Sam Merritt PCP: Dr. Eric Odom MD Status:ADM I N Location: [place] [address] Providers Date of Admission: 03/04/25 Date of [...] is a 54-year-old male who presented to [facility] ED on 03/04/2025 with chest pain. 1. [...] 122, VLDL 69, HDL 37. A1c 5.9%. Commercial Hvac Service Technician recommended to start heparin drip. N.p.o. plan [...] isolated troponin. Aggressive medical treatment. Discussed with reporting specialist recommended dual antiplatelet regiment, Plavix for 1 [...] % (Auto) 69.0, Lymph % (Auto) 22.4, Sharkey % (Auto) 5.5, Eos % (Auto) 1.4, [...] History taken from the patient. History of VA in [address] [facility]. At this time he complained of left lower scapular pain with radiation to left shoulder without related to activity or exertion for last several days. No precordial chest pain. He felt similar characteristics of pain when he had VA in 2008. No significant associated with shortness [...] Hernandez at discharge?: Yes Done w/ Acute VA measure.: Yes Ischemic Stroke Statin Dosing Therapy [...] Self Care Charges/Coding Visit Charges Inpatient E&M: 75313 Disch Hosp >30min 03/06/25 1322 <Electronically signed by Sam Cuellar MD> Cosigner Signature (if applicable): CC: Dr. Eric Odom MD; Dr. Sam Cuellar MD~ Signed [facility] Work Phone: 1(523) 335-509007-02-2025 Discharge summary Author Sam Cuellar [facility] Note Date/Time March 06, 2025 12:35 pm [facility] Medical Records Department [address] [place] [address] Instructions for Home/Discharge Instructions 03/06/25 1030 MR#: [id number] Acct: [id number] Name: ARGELIA COPELAND Rep #:[id number] : 1970 54 From: Sam Merritt PCP: [...] Odom MD [Primary Care Provider] - Angelica Whimtan PA [Med Staff - [facility] Practice Prof] - Within 2 Weeks Disposition Disposition (needs filled in before D/C Order can be placed): Home, Self Care 03/06/25 1235<Electronically signed by Sam Cuellar MD>Sam Cuellar MD CC: Dr. Hamilton Corral DO; Dr. Haritha Hernandez MD; Dr. Eric Odom MD ~ Signed [facility] Work Phone: 1(941) 388-593307-02-2025 Hospital Discharge instructionsAdditional Instructions Contraindication with the statin. Advised follow-up PCP to request prior authorization for Vascepa [facility]: [facility] Phone: 1(941) 961-987707-02-2025 Discharge summary [facility] Medical Records Department [address] [place] [address] Discharge Summary 03/06/25 1235 MR#: [id number] Acct: [id number] Name: ARGELIA COPELAND Rep #:[id number] : 1970 54 From: Sam Merritt PCP: Dr. Eric Odom MD Status:ADM I N Location: [place] [address] Providers Date of Admission: 03/04/25 Date of [...] is a 54-year-old male who presented to [facility] ED on 03/04/2025 with chest pain. 1. [...] 122, VLDL 69, HDL 37. A1c 5.9%. Commercial Hvac Service Technician recommended to start heparin drip. N.p.o. plan [...] isolated troponin. Aggressive medical treatment. Discussed with reporting specialist recommended dual antiplatelet regiment, Plavix for 1 [...] % (Auto) 69.0, Lymph % (Auto) 22.4, Sharkey % (Auto) 5.5, Eos % (Auto) 1.4, [...] History taken from the patient. History of VA in [address] [facility]. At this time he complained of left lower scapular pain with radiation to left shoulder without related to activity or exertion for last several days. No precordial chest pain. He felt similar characteristics of pain when he had VA in 2008. No significant associated with shortness [...] at discharge?: Yes Statins at discharge?: Yes Pawna/ARB at discharge?: Yes Beta Hernandez at discharge?: Yes Done w/ Acute VA measure.: Yes Ischemic Stroke Statin Dosing Therapy [...] Self Care Charges/Coding Visit Charges Inpatient E&M: 20518 Disch Hosp >30min 03/06/25 1322 Cosigner Signature (if applicable): CC: Dr. Eric Odom MD; Dr. Sam Cuellar MD~ Signed [facility]07-02-2025 Discharge summary [facility] Medical Records Department [address] [place] [address] Instructions for Home/Discharge Instructions 03/06/25 1030 MR#: [id number] Acct: [id number] Name: ARGELIA COPELAND Rep #:[id number] : 1970 54 From: Sam Merritt PCP: [...] Provider: Sam Cuellar Primary Care Provider: Eric Oodm Consulting Providers: Haritha Hernandez; Hamilton Corral Discharge [...] - Angelica Whitman PA [Med Staff - [facility] Practice Prof] - Within 2 Weeks Disposition Disposition (needs filled in before D/C Order can be placed): Home, Self Care 03/06/25 1235Sam Cuellar MD CC: Dr. Hamilton Corral DO; Dr. Haritha Hernandez MD; Dr. Eric Odom MD ~ Signed [facility]07-02-2025 [facility] Medical Records Department [address] [place] [address] Discharge Summary 03/06/25 1235 MR#: [id number] Acct: [id number] Name: ARGELIA COPELAND Rep #: [id number] : 1970 54 From: Sam Cuellar MD PCP: Dr. Eric Odom MD Status:ADM IN Location: [place] [id number] Providers Date of Admission: 03/04/25 Date of [...] is a 54-year-old male who presented to [facility] ED on 03/04/2025 with chest pain. 1. [...] 122, VLDL 69, HDL 37. A1c 5.9%. Commercial Hvac Service Technician recommended to start heparin drip. N.p.o. plan [...] isolated troponin. Aggressive medical treatment. Discussed with reporting specialist recommended dual antiplatelet regiment, Plavix for 1 [...] % (Auto) 69.0, Lymph % (Auto) 22.4, Sharkey % (Auto) 5.5, Eos % (Auto) 1.4, Baso % (Auto) 1.1 H, Absolute Neuts (auto) 5.0, Absolute Lymphs (auto) 1.63, Nucleated RBC % 0, PT 13.4, INR 1.0, APTT 23.0 L, D- Dimer Quant (PE/DVT) 0.59 H*, 03/04/25 15:30: Sodium 136, Potassium 4.0, Chloride 102, Carbon Dioxide 22.5, Anion Gap 11, BUN 11, Creat (more content not included)...[facility]07-01-2025 Consult note Author Haritha Hernandez [facility] Note Date/Time March 05, 2025 1:25p m [facility] Medical Records Department [address] [place] [address] Consultation - Cardiology 03/05/25 1320 MR#: [id number] Acct: [id number] Name: ARGELIA COPELAND Rep #:[id number] : 1970 54 From: Haritha Hernandez MD PCP: Dr. Eric Odom MD Status:ADM I N Location: [place] [address] Assessment & Plan Assessment/Plan (1) History of [...] and not being seen and followed by reporting specialist since 2008 with a prior history of [...] cardiac catheterization/right radial artery approach Haritha Hernandez MD,[facility] HPI Consult Data Date of Consult: 03/05/25 HPI Narrative Reason for Consultation: CAD/non-STEMI HPI Narrative: ARGELIA COPELAND, is a 54 M who presents [facility] [facility] Medical History (Updated 03/04/25 @ 16:39 by [...] myocardial infarction (07/22/09) Atherosclerotic heart disease of [place] coronary artery without angina pectoris HTN (hypertension) [...] Father , Age 57 of [place], had VA/CAD at age 39 CAD (coronary artery disease) [...] % (Auto) 69.0, Lymph % (Auto) 22.4, Sharkey % (Auto) 5.5, Eos % (Auto) 1.4, [...] Neut % (Auto) 69.0,Lymph % (Auto) 22.4, Sharkey % (Auto) 5.5, Eos % (Auto) 1.4, [...] acute osseous process is seen. Reading Location: [place] [address] Chest CTA 03/04/25 15:06 IMPRESSION: No acute pulmonary emboli. No focal consolidations. Reading Location: [facility] 03/05/25 1325 <Electronically signed by Haritha Hernandez MD> Cosigner Signature (if applicable): CC: Dr. Hamilton Corral DO; Dr. Eric Odom MD~ Signed [facility] Work Phone: 1(544) 626-535507-01-2025 Progress note Author Sam Cuellar [facility] Note Date/Time March 05, 2025 11:49 am [facility] Medical Records Department [address] [place] [address] Progress Note - Hospitalist 03/05/25 0809 MR#: [id number] Acct: [id number] Name: ARGELIA COPELAND Rep #:[id number] : 1970 54 From: Sam Merritt PCP: Dr. Eric Odom MD Status:ADM I N Location: [place] [address] Reason for Visit Reason for Visit: Diagnoses [...] % (Auto) 69.0, Lymph % (Auto) 22.4, Sharkey % (Auto) 5.5, Eos % (Auto) 1.4, [...] acute osseous process is seen. Reading Location: [place] [address] Chest CTA 03/04/25 15:06 IMPRESSION: No acute pulmonary emboli. No focal consolidations. Reading Location: [id number] Physical Exam Narrative Seen and examined. History taken from the patient. History of VA in [address] [facility]. At this time he complained of left lower scapular pain with radiation to left shoulder without related to activity or exertion for last several days. No precordial chest pain. He felt similar characteristics of pain when he had VA in 2009. No significant associated with shortness [...] Assessment & Plan Assessment/Plan (1) Non-ST elevation VA (NSTEMI): PLAN: Plan Patient is a 54-year-old male who presented to [facility] ED on 03/04/2025 with chest pain. 1. [...] 122, VLDL 69, HDL 37. A1c 5.9%. Commercial Hvac Service Technician recommended to start heparin drip. N.p.o. plan [...] % (Auto) 69.0, Lymph % (Auto) 22.4, Sharkey % (Auto) 5.5, Eos % (Auto) 1.4, [...] Ratio 6.16 Charges/Coding Visit Charges Inpatient E&M: 44124 Subs Hosp L2 03/05/25 1149 <Electronically signed by Sam Cuellar MD> Cosigner Signature (if applicable): CC: ~ Signed [facility] Work Phone: 1(665) 937-543007-01-2025 Consult note [facility] Medical Records Department [address] [place] [address] Consultation - Cardiology 03/05/25 1320 MR#: [id number] Acct: [id number] Name: ARGELIA COPELAND Rep #:[id number] : 1970 54 From: Haritha Hernandez MD PCP: Dr. Eric Odom MD Status:ADM I N Location: [place] [address] Assessment & Plan Assessment/Plan (1) History of [...] and not being seen and followed by reporting specialist since 2008 with a prior history of [...] cardiac catheterization/right radial artery approach Haritha Hernandez MD,FAC,[facility] HPI Consult Data Date of Consult: 03/05/25 HPI Narrative Reason for Consultation: CAD/non-STEMI HPI Narrative: ARGELIA COPELAND, is a 54 M who presents [facility] Medical History (Updated 03/04/25 @ 16:39 by [...] myocardial infarction (07/22/09) Atherosclerotic heart disease of [place] coronary artery without angina pectoris HTN (hypertension) [...] Father , Age 57 of [place], had VA/CAD at age 39 CAD (coronary artery disease) [...] house current occupational status: employed current occupation: [employer] 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: Former smoker pack-years: 20 alcohol [...] % (Auto) 69.0, Lymph % (Auto) 22.4, Sharkey % (Auto) 5.5, Eos % (Auto) 1.4, [...] Neut % (Auto) 69.0,Lymph % (Auto) 22.4, Sharkey % (Auto) 5.5,Eos % (Auto) 1.4, Baso [...] acute osseous process is seen. Reading Location: [place] [address] Chest CTA 03/04/25 15:06 IMPRESSION: No acute pulmonary emboli. No focal consolidations. Reading Location: [facility] 03/05/25 1325 Cosigner Signature (if applicable): CC: Dr. Hamilton Corral DO; Dr. Eric Odom MD~ Signed [facility]07-01-2025 Progress note [facility] Medical Records Department [address] [place] [address] Progress Note - Hospitalist 03/05/25 0809 MR#: [id number] Acct: [id number] Name: ARGELIA COPELAND Rep #:[id number] : 1970 54 From: Sam Merritt PCP: Dr. Eric Odom MD Status:ADM I N Location: [place] [address] Reason for Visit Reason for Visit: Diagnoses [...] % (Auto) 69.0, Lymph % (Auto) 22.4, Sharkey % (Auto) 5.5, Eos % (Auto) 1.4, [...] acute osseous process is seen. Reading Location: [facility]- Chest CTA 03/04/25 15:06 IMPRESSION: No acute pulmonary emboli. No focal consolidations. Reading Location: [facility] Physical Exam Narrative Seen and examined. History taken from the patient. History of VA in [address] [facility]. At this time he complained of left lower scapular pain with radiation to left shoulder without related to activity or exertion for last several days. No precordial chest pain. He felt similar characteristics of pain when he had VA in 2009. No significant associated with shortness [...] Assessment & Plan Assessment/Plan (1) Non-ST elevation VA (NSTEMI): PLAN: Plan Patient is a 54-year-old male who presented to [facility] ED on 03/04/2025 with chest pain. 1. [...] 122, VLDL 69, HDL 37. A1c 5.9%. Commercial Hvac Service Technician recommended to start heparin drip. N.p.o. plan [...] % (Auto) 69.0, Lymph % (Auto) 22.4, Sharkey % (Auto) 5.5, Eos % (Auto) 1.4, [...] Ratio 6.16 Charges/Coding Visit Charges Inpatient E&M: 45593 Subs Hosp L2 03/05/25 1149 Cosigner Signature (if applicable): CC: ~ Signed [facility]06-30-2025 History and physical note Author Hamilton Corral [facility] Note Date/Time March 04, 2025 5:27 pm [facility] Medical Records Department [address] [place] [address] H&P Exam - Hospitalist 03/04/25 6174 MR#: [id number] Acct: [id number] Name: ARGELIA COPELAND Rep #:[id number] : 1970 54 From: Hamilton stern DO PCP: Dr. Eric Odom MD Status:ADM I N Location: [place] [address] HPI - General General Date of Admission: 03/04/25 Date of Service: 03/04/25 Chief Complaint: Chest pain HPI Narrative ARGELIA COPELAND, is a 54 M who presented to [facility] ED on 03/04/2025 with chest pain. Patient [...] currently. Will be admitted for further management. [facility] Medical History Wears glasses Cancer Arthritis [...] myocardial infarction (07/22/09) Atherosclerotic heart disease of [place] coronary artery without angina pectoris HTN (hypertension) [...] Father , Age 57 of [place], had VA/CAD at age 39 CAD (coronary artery disease) Myocardial infarction Mother Hypertension Sister Hypertension Surgical History S/P umbilical hernia repair, follow-up exam Hx of surgical procedure History of surgery on arm History of dental surgery Stented coronary artery (07/22/09) Social History household members: other details: mother housing: house current occupational status: employed current occupation: [employer] 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: Former smoker pack-years: 20 alcohol [...] % (Auto) 69.0, Lymph % (Auto) 22.4, Sharkey % (Auto) 5.5, Eos % (Auto) 1.4, [...] acute osseous process is seen. Reading Location: [place] [address] Chest CTA 03/04/25 15:06 IMPRESSION: No acute pulmonary emboli. No focal consolidations. Reading Location: [id number] Assessment & Plan Assessment/Plan (1) Non-ST elevation VA (NSTEMI): PLAN: Plan Patient is a 54-year-old male who presented to [facility] ED on 03/04/2025 with chest pain. 1. [...] 75 minutes. Charges/Coding Visit Charges Inpatient E&M: 28145 Init Hosp L3 03/04/25 1727 <Electronically signed by Hamilton Corral DO> Cosigner Signature (if applicable): CC: Dr. Hamilton Corral DO; Dr. Eric Odom MD~ Signed [facility] Work Phone: 1(576) 796-245906-30-2025 Discharge summary Author Anselmo Rios [facility] Note Date/Time March 04, 2025 4:39 pm [facility] Medical Records Department [address] [place] [address] Emergency Department Summary 03/04/25 MR#: [id number] Acct: [id number] Name: ARGELIA COPELAND Rep #:[id number] : 1970 54 From: Anselmo Rios DO [...] use but denies any IV drug use. [facility] Medical History Wears glasses Cancer Arthritis [...] myocardial infarction (07/22/09) Atherosclerotic heart disease of [place] coronary artery without angina pectoris HTN (hypertension) [...] Father , Age 57 of [place], had VA/CAD at age 39 CAD (coronary artery disease) Myocardial infarction Mother Hypertension Sister Hypertension Surgical History S/P umbilical hernia repair, follow-up exam Hx of surgical procedure History of surgery on arm History of dental surgery Stented coronary artery (07/22/09) Social History household members: other details: mother housing: house current occupational status: employed 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: Former smoker pack-years: 20 alcohol [...] follow commands knew that he was at [facility] year is 2024 Skin: Warm, dry, [...] consolidations noted. I reached out to on-call reporting specialist Dr. Hernandez who is recommending place the [...] % (Auto) 69.0 Lymph % (Auto) 22.4 Sharkey % (Auto) 5.5 Eos % (Auto) 1.4 [...] acute osseous process is seen. Reading Location: [place] [address] Chest CTA 03/04/25 15:06 IMPRESSION: No acute pulmonary emboli. No focal consolidations. Reading Location: [facility] Discharge Plan Triage Chief Complaint: Chest Pain ED Provider: Anselmo Rios Dx/Rx/DC Orders Clinical Impression: Chest pain, Non-ST elevation VA (NSTEMI) Prescriptions: No Action metoprolol tartrate 25 [...] MD [Primary Care Provider] - Print Language: Faroese Disposition Disposition: Acute Care Hospital [facility] What to do if you have Problems For any increased pain, shortness of breath, bleeding, nausea or vomiting, chestpain, or any unexpected problems, contact your Primary Care Provider. Call [facility] ([phone]) or report to the closest Emergency Room. Call 911 if necessary. 03/04/25 8775 <Electronically signed by Anselmo Rios DO> Cosigner Signature (if applicable): CC: Dr. Eric Odom MD ~ Signed [facility] Work Phone: 1(441) 643-460406-30-2025 Evaluation note* Diagnosis Onset Date Resolution Status Admit Date Non-ST elevation VA (NSTEMI) acute March 04, 2025 4:31pm Family [...] use disorder chronic March 04, 2025 4:31pm [facility] Work Phone: 1(612) 919-903006-30-2025 Evaluation note* Diagnosis Onset Date Resolution Status Admit Date Non-ST elevation VA (NSTEMI) acute March 04, 2025 4:31pm Family history of ischemic heart disease chronic March 04, 2025 4:31pm 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 22, 2009 chronic February 052024 4:31pm History of percutaneous transluminal coronary angioplasty chronic March 04, 2025 4:31pm HLD (hyperlipidemia) chronic March 04, 2025 4:31pm Stented coronary artery July 22, 2009 [facility] on March 04, 2025 4:31pm Tobacco use disorder chronic March 04, 2025 4:31pm Orthostatic hypotension acute J darnell 2024 1:57pm Atherosclerotic heart disease of [place] coronary artery without angina pectoris chronic March 12, 2025 1:57pm HLD (hyperlipidemia) chronic March 12, 2025 1:57pm Stented coronary artery July 22, 2009 [facility] onic March 12, 2025 1:57pm HTN (hypertension) inactive March 122024 1:57pm [facility] Work Phone: 1(747) 480-403806-30-2025 Evaluation note* Diagnosis Onset Date Resolution Status Admit Date Family history of ischemic heart disease chronic March 04, 2025 4:31pm 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 22, 2009 chronic February 052024 4:31pm History of percutaneous transluminal coronary angioplasty chronic March 04, 2025 4:31pm HLD (hyperlipidemia) chronic March 04, 2025 4:31pm Stented coronary artery July 22, 2009 [facility] on March 04, 2025 4:31pm Tobacco use disorder chronic March 04, 2025 4:31pm Non-ST elevation VA (NSTEMI) inactiv e March 04, 2025 4:31pm Orthostatic hypotension acute J darnell2024 1:57pm Atherosclerotic heart disease of [place] coronary artery without angina pectoris chronic March 12, 2025 1:57pm HLD (hyperlipidemia) chronic March 12, 2025 1:57pm Stented coronary artery July 22, 2009 [facility] on March 12, 2025 1:57pm HTN (hypertension) inactive March 122024 1:57pm [facility] Work Phone: 1(272) 178-890606-30-2025 Evaluation note* Diagnosis Onset Date Resolution Status Admit Date Family history of ischemic heart disease chronic March 04, 2025 4:31pm 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 22, 2009 chronic February 052024 4:31pm History of percutaneous transluminal coronary angioplasty chronic March 04, 2025 4:31pm HLD (hyperlipidemia) chronic March 04, 2025 4:31pm Stented coronary artery July 22, 2009 [facility] on March 04, 2025 4:31pm Tobacco use disorder chronic March 04, 2025 4:31pm Non-ST elevation VA (NSTEMI) inactiv e March 04, 2025 4:31pm Orthostatic hypotension acute J 2024 1:57pm Atherosclerotic heart disease of [place] coronary artery without angina pectoris chronic March 12, 2025 1:57pm HLD (hyperlipidemia) chronic March 12, 2025 1:57pm Stented coronary artery July 22, 2009 [facility] March 12, 2025 1:57pm HTN (hypertension) inactive March 122024 1:57pm ROGERS (dyspnea on exertion) acute March 26, 2025 7:51am Orthostatic hypotension acute [facility]2024 7:51am Palpitations acute March 26 7:51am Atherosclerotic heart disease of [place] coronary artery without angina pectoris chronic March 26, 2025 7:51am HLD (hyperlipidemia) chronic March 26, 2025 7:51am Stented coronary artery July 22, 2009 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 March 04, 2025 4:31pm Tobacco use disorder chronic March 04, 2025 4:31pm Non-ST elevation VA (NSTEMI) inactiv e March 04, 2025 4:31pm Orthostatic hypotension acute J darnell2024 1:57pm Atherosclerotic heart disease of [place] coronary artery without angina pectoris chronic March 12, 2025 1:57pm HLD (hyperlipidemia) chronic March 12, 2025 1:57pm Stented coronary artery July 22, 2009 [facility] March 12, 2025 1:57pm HTN (hypertension) inactive March 122024 1:57pm ROGERS (dyspnea on exertion) acute March 26, 2025 7:51am Palpitations acute March 26, 2 025 7:51am Atherosclerotic heart disease of [place] coronary artery without angina pectoris chronic March 26, 2025 7:51am HLD (hyperlipidemia) chronic March 26, 2025 7:51am Stented coronary artery July 22, 2009 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 March 04, 2025 4:31pm Tobacco use disorder chronic March 04, 2025 4:31pm Non-ST elevation VA (NSTEMI) inactive March 04, 2025 4:31pm Orthostatic hypotension acute 2024 1:57pm Atherosclerotic heart disease of [place] coronary artery without angina pectoris chronic March 12, 2025 1:57pm HLD (hyperlipidemia) chronic March 12, 2025 1:57pm Stented coronary artery July 22, 2009 [facility] March 12, 2025 1:57pm HTN (hypertension) inactive March 122024 1:57pm ROGERS (dyspnea on exertion) acute March 26, 2025 7:51am Palpitations acute March 26, 2 025 7:51am Atherosclerotic heart disease of [place] coronary artery without angina pectoris chronic March 26, 2025 7:51am HLD (hyperlipidemia) chronic March 26, 2025 7:51am Stented coronary artery July 22, 2009 [facility] March 26, 2025 7:51am HTN (hypertension) inactive March 062024 7:51am ROGERS (dyspnea on exertion) acute April 12, 2025 9:23am Palpitations acute April 12, 2025 9:23am Atherosclerotic heart disease of [place] coronary artery without angina pectoris chronic April 12, 2025 9:23am HLD (hyperlipidemia) chronic [facility] 2024 9:23am Stented coronary artery July 22, 2009 [facility] April 12, 2025 9:23am HTN (hypertension) inactive April 12, 2025 9:23am [facility] Work Phone: 1(999) 993-456406-30-2025 History and physical note [facility] Medical Records Department [address] [place] [address] H&P Exam - Hospitalist 03/04/25 1628 MR#: [id number] Acct: [id number] Name: ARGELIA COPELAND Rep #:[id number] : 1970 54 From: Hamilton stern DO PCP: Dr. Eric Odom MD Status:ADM I N Location: [place] [id number] HPI - General General Date of Admission: 03/04/25 Date of Service: 03/04/25 Chief Complaint: Chest pain HPI Narrative ARGELIA COPELAND, is a 54 M who presented to [facility] ED on 03/04/2025 with chest pain. Patient [...] currently. Will be admitted for further management. [facility] Medical History Wears glasses Cancer Arthritis [...] myocardial infarction (07/22/09) Atherosclerotic heart disease of [place] coronary artery without angina pectoris HTN (hypertension) [...] Father , Age 57 of [place], had VA/CAD at age 39 CAD (coronary artery disease) Myocardial infarction Mother Hypertension Sister Hypertension Surgical History S/P umbilical hernia repair, follow-up exam Hx of surgical procedure History of surgery on arm History of dental surgery Stented coronary artery (07/22/09) Social History household members: other details: mother housing: house current occupational status: employed current occupation: [employer] 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: Former smoker pack-years: 20 alcohol [...] % (Auto) 69.0, Lymph % (Auto) 22.4, Sharkey % (Auto) 5.5, Eos % (Auto) 1.4, [...] acute osseous process is seen. Reading Location: [facility]-1 Chest CTA 03/04/25 15:06 IMPRESSION: No acute pulmonary emboli. No focal consolidations. Reading Location: [id number] Assessment & Plan Assessment/Plan (1) Non-ST elevation VA (NSTEMI): PLAN: Plan Patient is a 54-year-old male who presented to [facility] ED on 03/04/2025 with chest pain. 1. [...] 75 minutes. Charges/Coding Visit Charges Inpatient E&M: 54349 Init Hosp L3 03/04/25 1727 Cosigner Signature (if applicable): CC: Dr. Hamilton Corral DO; Dr. Eric Odom MD~ Signed [facility]06-30-2025 Discharge summary [facility] Medical Records Department [address] [place] [address] Emergency Department Summary 03/04/25 MR#: [id number] Acct: [id number] Name: ARGELIA COPELAND Rep #:[id number] : 1970 54 From: Anselmo Rios DO [...] use but denies any IV drug use. [facility] Medical History Wears glasses Cancer Arthritis [...] myocardial infarction (07/22/09) Atherosclerotic heart disease of [place] coronary artery without angina pectoris HTN (hypertension) [...] Father , Age 57 of [place], had VA/CAD at age 39 CAD (coronary artery disease) Myocardial infarction Mother Hypertension Sister Hypertension Surgical History S/P umbilical hernia repair, follow-up exam Hx of surgical procedure History of surgery on arm History of dental surgery Stented coronary artery (07/22/09) Social History household members: other details: mother housing: house current occupational status: employed 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: Former smoker pack-years: [...] follow commands knew that he was at [facility] year is 2024 Skin: Warm, dry, [...] consolidations noted. I reached out to on-call reporting specialist Dr. Hernandez who is recommending place the [...] % (Auto) 69.0 Lymph % (Auto) 22.4 Sharkey % (Auto) 5.5 Eos % (Auto) 1.4 [...] acute osseous process is seen. Reading Location: [facility] Chest CTA 03/04/25 15:06 IMPRESSION: No acute pulmonary emboli. No focal consolidations. Reading Location: [id number] Discharge Plan Triage Chief Complaint: Chest Pain ED Provider: Rios,Anselmo Dx/Rx/DC Orders Clinical Impression: Chest pain, Non-ST elevation VA (NSTEMI) Prescriptions: No Action metoprolol tartrate 25 [...] MD [Primary Care Provider] - Print Language: Faroese Disposition Disposition: Acute Care Hospital [facility] What to do if you have Problems For any increased pain, shortness of breath, bleeding, nausea or vomiting, chestpain, or any unexpected problems, contact your Primary Care Provider. Call [facility] ([phone]) or report tothe closest Emergency Room. Call 911 if necessary. 03/04/25 1639 Cosigner Signature (if applicable): CC: Dr. Eric Odom MD ~ Signed [facility]-30-2025 Radiology Diagnostic study note [facility] Imaging Services [address] [place] [address] CTA Chest W/WO Contrast MR#: [id number] Acct: [id number] Name: ARGELIA COPELAND Rep #: [id number] : 1970 M 54 From: Rahel Lopez MD PCP: Dr. Eric Odom MD Status: REG E R Study:CTA Chest W/WO Contrast Date of Exam: 03/04/25 Exam# [id number] Ordering Dr: Juno Rios DO PROCEDURE: CTA [...] pulmonary emboli. No focal consolidations. Reading Location: [facility] CC: Dr. Eric Odom MD; Dr. Anselmo Rios DO ~ Exercise Planner: Signed [facility]06-30-2025 Radiology Diagnostic study note [facility] Imaging Services [address] [place], [place] [id number] Chest PA and Lateral MR#: [id number] Acct: [id number] Name: ARGELIA COPELAND Rep #: [id number] : 1970 M 54 From: Anuj Ross MD PCP: Dr. Eric Odom MD Status: PRE E R Study:Chest PA and Lateral Date of Exam: 03/04/25 Exam# [id number] Ordering Dr: Juno Rios DO PROCEDURE: CHEST [...] acute osseous process is seen. Reading Location: [place] [address] CC: Dr. Eric Odom MD; Dr. Anselmo Rios DO ~ Exercise Planner: Signed [facility]06-30-2025 Discharge summary Author Anselmo Rios [facility] Note Date/Time March 04, 2025 4:39 pm [facility] Medical Records Department [address] [place] [address] Emergency Department Summary 03/04/25 MR#: [id number] Acct: [id number] Name: ARGELIA COPELAND Rep #:[id number] : 1970 54 From: Anselmo Rios DO [...] use but denies any IV drug use. [facility] Medical History Wears glasses Cancer Arthritis [...] myocardial infarction (07/22/09) Atherosclerotic heart disease of [place] coronary artery without angina pectoris HTN (hypertension) [...] Father , Age 57 of [place], had VA/CAD at age 39 CAD (coronary artery disease) Myocardial infarction Mother Hypertension Sister Hypertension Surgical History S/P umbilical hernia repair, follow-up exam Hx of surgical procedure History of surgery on arm History of dental surgery Stented coronary artery (07/22/09) Social History household members: other details: mother housing: house current occupational status: employed current occupation: [employer] 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: Former smoker pack-years: 20 alcohol [...] follow commands knew that he was at [facility] year is 2024 Skin: Warm, dry, [...] consolidations noted. I reached out to on-call reporting specialist Dr. Hernandez who is recommending place the [...] % (Auto) 69.0 Lymph % (Auto) 22.4 Sharkey % (Auto) 5.5 Eos % (Auto) 1.4 [...] acute osseous process is seen. Reading Location: [facility] Chest CTA 03/04/25 15:06 IMPRESSION: No acute pulmonary emboli. No focal consolidations. Reading Location: [facility] Discharge Plan Triage Chief Complaint: Chest Pain ED Provider: Anselmo Rios Dx/Rx/DC Orders Clinical Impression: Chest pain, Non-ST elevation VA (NSTEMI) Prescriptions: No Action metoprolol tartrate 25 [...] MD [Primary Care Provider] - Print Language: Faroese Disposition Disposition: Acute Care Hospital [facility] What to do if you have Problems For any increased pain, shortness of breath, bleeding, nausea or vomiting, chestpain, or any unexpected problems, contact your Primary Care Provider. Call [facility] ([phone]) or report to the closest Emergency Room. Call 911 if necessary. 03/04/25 6717 <Electronically signed by Anselmo Rios DO> Cosigner Signature (if applicable): CC: Dr. Eric Odom MD ~ Signed [facility] Work Phone: [phone] [phone] Discharge summary [facility] Medical Records Department [address] [place] [address] Emergency Department Summary 12/13/24 MR#: [id number] Acct: [id number] Name: ARGELIA COPELAND Rep #:[id number] : 1970 54 From: Wero ulloa DO [...] intact Psych: Cooperative, appropriate mood and affect [facility] Medical History Wears glasses Cancer Arthritis [...] myocardial infarction (07/22/09) Atherosclerotic heart disease of [place] coronary artery without angina pectoris HTN (hypertension) [...] Father , Age 57 of [place], had VA/CAD at age 39 CAD (coronary artery disease) Myocardial infarction Mother Hypertension Sister Hypertension Surgical History S/P umbilical hernia repair, follow-up exam Hx of surgical procedure History of surgery on arm History of dental surgery Stented coronary artery (07/22/09) Social History household members: other details: mother housing: house current occupational status: employed 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[employer] 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: Former smoker pack-years: [...] MD [Primary Care Provider] - Print Language: Faroese What to do if you have Problems For any increased pain, shortness of breath, bleeding, nausea or vomiting, chestpain, or any unexpected problems, contact your Primary Care Provider. Call [facility] ([phone]) or report tothe closest Emergency Room. Call 911 if necessary. 12/13/24 0910 Cosigner Signature (if applicable): CC: Dr. Eric Odom MD ~ Signed [facility]11-17-2009 Evaluation note* Diagnosis Onset Date Resolution Status Atherosclerotic heart diseas e of [place] coronary artery without angina pectoris chronic HLD (hyperlipidemia) chronic HTN (hypertension) chronic Stented coronary artery July 22, 2009 chronic [facility] Work Phone: Discharge summary Author Wero Santiago [facility] Note Date/Time December 13, 2024 9:1 0am [facility] Medical Records Department [address] [place] [address] Emergency Department Summary 12/13/24 MR#: [id number] Acct: [id number] Name: ARGELIA COPELAND Rep #:[id number] : 1970 54 From: Wero Gutierrez ggett [...] intact Psych: Cooperative, appropriate mood and affect [facility] Medical History Wears glasses Cancer Arthritis [...] myocardial infarction (07/22/09) Atherosclerotic heart disease of [place] coronary artery without angina pectoris HTN (hypertension) [...] mg PO DAILY Unknown History release (Cymbalta) nevin root extract 500 [...] Father , Age 57 of [place], had VA/CAD at age 39 CAD (coronary artery disease) Myocardial infarction Mother Hypertension Sister Hypertension Surgical History S/P umbilical hernia repair, follow-up exam Hx of surgical procedure History of surgery on arm History of dental surgery Stented coronary artery (07/22/09) Social History household members: other details: mother housing: house current occupational status: employed 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 Call [facility] ([phone]) or report to the closest Emergency Room. Call 911 if necessary. 12/13/24 0910 <Electronically signed by Wero Santiago DO> Cosigner Signature (if applicable): CC: Dr. Eric Odom MD ~ Signed [facility] Work Phone: Evaluation + Plan note No data available for this section [facility] Evaluation noteNo assessment information available [facility] Work Phone: Evaluation note* Diagnosis Onset Date Resolution Status Umbilical hernia acute Morbid obesity with BMI of 40.0-44.9, adult chronic S/P umbilical hernia repair, follow-up exam acute [facility] Work Phone: Hospital Discharge instructions No data available for this section [facility] Hospital Discharge instructions Additional Instructions Monitor for worsening signs and symptoms. Follow-up with podiatry and PCP. Stop wearing your work boots.[facility] Work Phone: Hospital Discharge instructionsAdditional Instructions Keep the foot clean and dry. It can get wet do not let it soak in any bathtub water. When you shower when you are done carefully and gently dry it thoroughly. Tylenol for pain. Watch for any signs of infection such as swelling, redness, pus or streaks of seen return. Clean thoroughly and gently daily. Apply antibiotic ointment daily. Clean with either soap water or peroxide and water. Clean white socks. Stitches out in 10 days. We can do at your primary care physician's office can do it.[facility] Work Phone: Progress note No data available for this section [facility] Reason for referral (narrative)No reason for referral information availableWTwin City [facility] Work Phone: Summary Purpose Family History [...] No December 20, 2021 2:46pm Power of Skating [place] No December 20 2:46pm Advance Directive Response Recorded Date/ Time Advance Directives No February 19 1:56pm Living Will No December 20, 2021 1:46pm Power of Skating [place] No December 20 22 1:46pm Advance Directive Response Recorded Date/ Time Advance Directives No February 19 14 1:56pm Living Will No September 16 24 2:52pm Power of Skating [place] No September 16, 2023 2:52pm Advance Directive Response Recorded Date/ Time Living Will No December 13, 2024 8:45am Do you have a Healthcare Power of Skating Carhop? No December 13, 2024 8:45am Advance Directives No February 19 14 2:56pm Advance Directive Response Recorded Date/ Time Living Will No December 13, 2024 8:45am Do you have a Healthcare Power of Skating Carhop? No December 13, 2024 8:45am Do you have a Healthcare Power of Skating [place]hop? No March 04, 2025 1:34pm Advance Directives No February 19 14 2:56pm Advance Directive Response Recorded Date/ Time Living Will No December 13, 2024 8:45am Do you have a Healthcare Power of Skating Carhop? No December 13, 2024 8:45am Do you have a Healthcare Power of Skating [place]hop? No March 04, 2025 5:15pm Advance Directives No February 19 14 2:56pm Advance Directive Response Recorded Date/ Time Living Will No December 13, 2024 8:45am Do you have a Healthcare Power of Skating Carhop? No December 13, 2024 8:45am Do you have a Healthcare Power of Skating [place]hop? No March 04, 2025 5:15pm Do you have a Healthcare Power of Skating [place]hop? No April 11, 2025 11:02pm Advance Directives No February 19 14 2:56pm Chief Complaint and Reason for Visit Chief Complaint PALPATATIONS burning mouth 3 M FU right foot Reason for Visit Atherosclerotic hear t disease of [place] coronary artery without angina pectoris HLD (hyperlipidemia) HTN (hypertension) Stented coronary artery Chief Complaint 5 M FU PARTIAL TEAR OF COMMON EXTENSOR TEND. RX HERE. Reason for Visit Atherosclerotic hear t disease of [place] coronary artery without angina pectoris HLD (hyperlipidemia) [...] Reason for Visit Admit Date Non-ST elevation VA (NSTEMI) March 04, 2025 4:31pm Family history [...] NSTEMI March 06, 2025 12:35 pm S/P [facility] 7/2 NSTEMI March 12, 2025 1:57p m Reason for Visit Admit Date Non-ST elevation VA (NSTEMI) March 04, 2025 4:31pm Family history [...] 1 :57pm Atherosclerotic heart diseas e of [place] coronary artery without angina pectoris March 12, [...] March 04, 2025 4:3 1pm Non-ST elevation VA (NSTEMI) March 04, 2025 4:31pm Orthostatic hypotension March 12, 2025 1 :57pm Atherosclerotic heart diseas e of [place] coronary artery without angina pectoris March 12, [...] March 04, 2025 4:3 1pm Non-ST elevation VA (NSTEMI) March 04, 2025 4:31pm Orthostatic hypotension March 12, 2025 1 :57pm Atherosclerotic heart diseas e of [place] coronary artery without angina pectoris March 12, 2025 1:57pm HLD (hyperlipidemia) March 12, 2025 1:57 pm Stented coronary artery March 12, 2025 1 :57pm HTN (hypertension) March 12, 2025 1:57p m ROGERS (dyspnea on exertion) March 26 7:51am Orthostatic hypotension March 26, 2025 7:51am Palpitations March 26, 2025 7:51 am Atherosclerotic heart diseas e of [place] coronary artery without angina pectoris March 26, [...] March 04, 2025 4:3 1pm Non-ST elevation VA (NSTEMI) March 04, 2025 4:31pm Orthostatic hypotension March 12, 2025 1 :57pm Atherosclerotic heart diseas e of [place] coronary artery without angina pectoris March 12, 2025 1:57pm HLD (hyperlipidemia) March 12, 2025 1:57 pm Stented coronary artery March 12, 2025 1 :57pm HTN (hypertension) March 12, 2025 1:57p m ROGERS (dyspnea on exertion) March 26 7:51am Palpitations March 26, 2025 7:51 am Atherosclerotic heart diseas e of [place] coronary artery without angina pectoris March 26, [...] am E-ORDER March 26, 2025 8:30 am PALPITATIONS, CHAPIS LAWSON March 31 025 1:40pm Laceration April 11, 2025 9:0 7pm Chief Complaint Admit Date RIGHT FOOT BLISTERS [...] am E-ORDER March 26, 2025 8:30 am PALPITATIONS, CHAPIS LAWSON March 31 025 1:40pm Laceration April 11, 2025 9:0 7pm 1 M FU April 12, 2025 9:2 3am Reason for Visit Admit Date Family history of ischemic heart disease March 04, 2025 4:31pm History of lateral wall myocardial infar ction March 04, 2025 4:31pm History of percutaneous transluminal cor onary angioplasty March 04, 2025 4:31pm HLD (hyperlipidemia) March 04, 2025 4:3 1pm Stented coronary artery March 04, 2025 4:31pm Tobacco use disorder March 04, 2025 4:3 1pm Non-ST elevation VA (NSTEMI) March 04, 2025 4:31pm Orthostatic hypotension March 12, 2025 1 :57pm Atherosclerotic heart diseas e of [place] coronary artery without angina pectoris March 12, 2025 1:57pm HLD (hyperlipidemia) March 12, 2025 1:57 pm Stented coronary artery March 12, 2025 1 :57pm HTN (hypertension) March 12, 2025 1:57p m ROGERS (dyspnea on exertion) March 26 7:51am Palpitations March 26, 2025 7:51 am Atherosclerotic heart diseas e of [place] coronary artery without angina pectoris March 26, 2025 7:51am HLD (hyperlipidemia) March 26, 2025 7:5 1am Stented coronary artery March 26, 2025 7:51am HTN (hypertension) March 26, 2025 7:51 am ROGERS (dyspnea on exertion) April 12 9:23am Palpitations April 12, 2025 9:2 3am Atherosclerotic heart diseas e of [place] coronary artery without angina pectoris April 12, 2025 9:23am HLD (hyperlipidemia) April 12, 2025 9: 23am Stented coronary artery April 12, 2025 9:23am HTN (hypertension) April 12, 2025 9:2 3am Additional Source Comments (unrecognized sect ion and content) No Status Records FoundNo Status Records FoundNo Status Records Found INFORMATION SOURCE (unrecogn ized section and content) DATE CREATED AUTHOR 03/13/2019 [facility] [employer] DATE CREATED AUTHOR AUTHOR'S ORGANIZ ATION 03/11/2022 [facility] ([place] DATE CREATED AUTHOR AUTHOR'S ORGANIZ ATION 04/18/2025 Anisha [facility] Goals (unrecognized section and content) Goals [...] BE BASED ON THE PRIMARY CLINICAL RECORDS. [facility] [employer] [facility]. provides no warranty or guarantee of the accuracy or completeness of information in this document.
== END | disposition home or self-care (01) ==
LOC: CT 15:49
PROVIDERS: PCP Family Medicine; Referring Provider Nurse Practitioner Gerontology; Visit Provider Nurse Practitioner Gerontology
DX: R06.09 Other forms of dyspnea (principal)
CPT/HCPCS: 71275; Q9967

== ENCOUNTER → 2025-05-15 | Outpatient (CLI) | payer MEDICAID, SELFPAY ==
--- NOTE | 2025-05-15 12:39 | CDU_ITS ---
Reason For Study Reason For Study: Dizziness Rt. Velocities/BP Lt. Velocities/BP Prox CCA 98.6/22.5 cm/sec. Prox CCA 117.4/18.8 cm/sec. Mid CCA 93.7/29.8 cm/sec. Mid CCA 83.9/23.7 cm/sec. Dist CCA 70.4/20.0 cm/sec. Dist CCA 72.8/23.7 cm/sec. Prox ICA 66.7/17.6 cm/sec. Prox ICA 64.2/18.8 cm/sec. Mid ICA 80.2/23.7 cm/sec. Mid ICA 58.1/18.8 cm/sec. Dist ICA 60.5/20.0 cm/sec. Dist ICA 69.6/23.4 cm/sec. Rt. ICA/CCA = 0.9. Lt. ICA/CCA = 0.8. Prox ECA 141.2/31.4 cm/sec. Prox ECA 125.8/16.0 cm/sec. Rt. Vert. 39.7/15.1 cm/sec. Lt. Vert. 38.8/13.5 cm/sec. Right Extracranial There is intimal thickening but no significant atherosclerotic plaque noted in the right common carotid artery. There is heterogeneous, irregular atherosclerotic plaque noted in the right internal carotid artery. There is heterogeneous, irregular atherosclerotic plaque noted in the right external carotid artery. Antegrade flow is noted in the right vertebral artery. Left Extracranial There is intimal thickening but no significant atherosclerotic plaque noted in the left common carotid artery. There is intimal thickening but no significant atherosclerotic plaque noted in the left internal carotid artery. The left internal carotid artery is not well visualized. There is intimal thickening but no significant atherosclerotic plaque noted in the left external carotid artery. The left external carotid artery is not well visualized. Antegrade flow is noted in the left vertebral artery. Procedure Carotid Duplex [id number]. This is a Carotid Duplex examination using B-mode, color flow and specral Doppler. Exam performed in department. VL/Carotid Duplex Ultrasound Interpretation Summary Mild (<50%) stenosis right extracranial internal carotid. Normal left extracranial internal carotid. Patent and antegrade vertebrals bilaterally. Ordering Physician: Norma Crow Performed By: Lizett Diego RVT
== END | disposition home or self-care (01) ==
LOC: PSN 12:33
PROVIDERS: Referring Provider Nurse Practitioner Gerontology; Visit Provider Nurse Practitioner Gerontology
DX: R42 Dizziness and giddiness (principal); R06.09 Other forms of dyspnea
CPT/HCPCS: 93880; 94060; 94726; 94729